=== PATIENT | female | born 1955 | race Caucasian/White ===

== ENCOUNTER 2016-10-30 14:33 | Inpatient (IN) | payer OTHER ==
[2016-10-30] VITALS (8 sets, daily range): BP systolic 132–170; BP diastolic 84–94; PULSE 84–102; RESP 20–30; TEMP 98.9–99.1; O2SAT 88–99
[~2016-10-30] VITALS: Ht 162.6 cm; Wt 65.5 kg
[~2016-10-30 14:33] MED LIST: ALBU8I INH; LEVA750T PO; METH5SOL3 PO
[2016-10-30] MEDS ORDERED: methylPREDNISolone SOD SUCC 125 MG/2 ML VIAL IVP ONE (15:00)
[2016-10-30] MEDS ORDERED: SODIUM CHLORIDE 0.9% FLUSH 5 ML FLUSH IVF PRN (15:00)
[2016-10-30] MEDS: RESP: ALBUTEROL 2.5 MG/IPRATROPIUM 0.5 MG NEB (SCH) INH ×3 (15:05→15:27)
--- NOTE | 2016-10-30 15:05 | PD ---
HPI Chief Complaint: Respiratory Distress Time Seen by Provider: 14:54 Travel History International Travel<30 days: No Contact w/Intl Traveler<30days: No Traveled to known affect area: No History of Present Illness HPI The patient was seen and examined in the presence of the nurse. This patient has history of COPD and still smokes. She complains of shortness of breath and wheezing and cough. She does have a chronic daily cough. Supposed to be and nebulizers but her machine was broken. She arrives hypoxic with room air saturation of 88%. She is not on home O2. No chest pain. Symptoms severity is moderate. No alleviating factors. Duration 3 days PFSH Past Medical History Autoimmune Disease: No Cancer: Yes (CERVICAL) Cardiovascular Problems: Yes (htn) COPD: Yes Cerebrovascular Accident: Yes (seizures) Diminished Hearing: No Genitourinary: No (trouble urinating last few days) Hypertension: Yes Immune Disorder: No Musculoskeletal: No Neurologic: No Psychiatric: No Respiratory: Yes (copd) Immunizations Current: Yes Seizures: Yes (in past drug related) Tetanus Vaccination: Unknown Influenza Vaccination: No PNEUMOCCOCAL Vaccine (Year): 2 ?: Not Menopausal: Yes : 3 Para: 2 Miscarriage: 1 Dilation and Curettage (D&C): Yes Past Surgical History Eye Surgery: Yes (CATARAC AND RETINAL SURGERY IN THE LEFT EYE) Gynecologic Surgery: Yes (CERVICAL CONE SURGERY FOR CANCER) Family History Family Myocardial Infarction: Yes (SISTER MASSIVE [place]) Social History Alcohol Use: No Tobacco Use: Yes (11/03) Substance Use: Yes (past) Allergies-Medications (Allergen,Severity, Reaction): Coded Allergies: Sulfa (Verified Allergy, Severe, HIVES, 10/30/16) Toradol (Verified Allergy, Mild, HIVES, 10/30/16) Reported Meds & Prescriptions Reported Meds & Active Scripts Active Reported Methadose (Methadone HCl) 40 Mg Tab 160 Mg PO DAILY Ventolin Hfa 18 GM Inh (Albuterol Sulfate) 90 Mcg/Act Aer 1 Puff INH Q4H PRN Review of Systems General / Constitutional: No: Fever Eyes: No: Visual changes HENT: No: Headaches Cardiovascular: No: Chest Pain or Discomfort Respiratory: Positive: Cough, Shortness of Breath, Wheezing Gastrointestinal: No: Abdominal Pain Genitourinary: No: Dysuria Musculoskeletal: No: Pain Skin: No Rash Neurologic: No: Weakness Psychiatric: No: Depression Endocrine: No: Polydipsia Hematologic/Lymphatic: No: Easy Bruising Physical Exam Narrative GENERAL: Well-nourished, well-developed patient who is short of breath . SKIN: Warm and dry. HEAD: Atraumatic. Normocephalic. EYES: Left cornea is clouded over. She has chronic vision loss in that eye . No scleral icterus. No injection or drainage. Right pupils round and reactive ENT: No nasal bleeding or discharge. Mucous membranes pink and moist. NECK: Trachea midline. No JVD. CARDIOVASCULAR: Regular rate and rhythm. No murmur appreciated. RESPIRATORY: Slight accessory muscle use. Diffuse expiratory wheezing noted . Breath sounds equal bilaterally. GASTROINTESTINAL: Abdomen soft, non-tender, nondistended. Hepatic and splenic margins not palpable. MUSCULOSKELETAL: No obvious deformities. No clubbing. No cyanosis. No edema. NEUROLOGICAL: Awake and alert. No obvious cranial nerve deficits. Motor grossly within normal limits. Normal speech. PSYCHIATRIC: Appropriate mood and affect; insight and judgment normal. Data Data Last Documented VS Vital Signs Date Time Temp Pulse Resp B/P Pulse Ox O2 Delivery O2 Flow Rate FiO2 10/30/16 15:25 99 Nasal Cannula 2 10/30/16 15:23 98.9 92 24 170/89 Orders Complete Blood Count With Diff (10/30/16 14:59) Basic Metabolic Panel (Bmp) (10/30/16 14:59) Iv Access Insert/Monitor (10/30/16 14:59) Ecg Monitoring (10/30/16 14:59) Oximetry (10/30/16 14:59) Oxygen Administration (10/30/16 14:59) Chest, Single Ap (10/30/16 14:59) Sodium Chloride 0.9% Flush (Ns Flush) (10/30/16 15:00) Methylprednisolone So Succ Inj (Solumedr (10/30/16 15:00) Albuterol-Ipratropium Neb (Duoneb Neb) (10/30/16 15:00) Prothrombin Time / Inr (Pt) (10/30/16 15:44) Act Partial Throm Time (Ptt) (10/30/16 15:44) Admit Order (Ed Use Only) (10/30/16 15:45) Labs Laboratory Tests Test 10/30/16 14:00 White Blood Count 11.9 TH/MM3 Red Blood Count 4.89 MIL/MM3 Hemoglobin 14.0 GM/DL Hematocrit 43.0 % Mean Corpuscular Volume 87.9 FL Mean Corpuscular Hemoglobin 28.6 PG Mean Corpuscular Hemoglobin 32.5 % Concent Red Cell Distribution Width 12.7 % Platelet Count 524 TH/MM3 Mean Platelet Volume 7.1 FL Neutrophils (%) (Auto) 84.4 % Lymphocytes (%) (Auto) 7.7 % Monocytes (%) (Auto) 6.6 % Eosinophils (%) (Auto) 0.8 % Basophils (%) (Auto) 0.5 % Neutrophils # (Auto) 10.0 TH/MM3 Lymphocytes # (Auto) 0.9 TH/MM3 Monocytes # (Auto) 0.8 TH/MM3 Eosinophils # (Auto) 0.1 TH/MM3 Basophils # (Auto) 0.1 TH/MM3 CBC Comment DIFF FINAL Differential Comment Sodium Level 133 MEQ/L Potassium Level 3.8 MEQ/L Chloride Level 91 MEQ/L Carbon Dioxide Level 33.9 MEQ/L Anion Gap 8 MEQ/L Blood Urea Nitrogen 6 MG/DL Creatinine 0.73 MG/DL Estimat Glomerular Filtration 81 ML/MIN Rate Random Glucose 132 MG/DL Calcium Level 9.8 MG/DL MDM Medical Decision Making Medical Screen Exam Complete: Yes Emergency Medical Condition: Yes Medical Record Reviewed: Yes Differential Diagnosis Differential diagnosis includes COPD, asthma, pneumonia, bronchitis, CHF Narrative Course I have reviewed the patient's electronic medical record. Was admitted a year ago for pneumonia IV placed I gave her IV steroids and 3 nebulizer treatments CBC is normal Metabolic profile is normal I reviewed her chest x-ray which shows a little moderate sized right sided pleural effusion, about one third of her lung volume. She is hypoxic on room air and still wheezing and will require admission I reviewed with hospitalist. I reviewed last year's chest x-ray and this pleural effusion is new Diagnosis Primary Impression: COPD (chronic obstructive pulmonary disease) Qualified Code: J44.1 - Chronic obstructive pulmonary disease with acute exacerbation Additional Impressions: Hypoxia Pleural effusion on right Admitting Information Admitting Physician Requests: Admit Juilo Guerrier MD Oct 30, 2016 15:05
[2016-10-30 15:17] LABS: BASOPHIL # 0.1 TH/MM3 (0-0.2); BASOPHIL % 0.5 % (0.0-2.0); EOSINOPHIL # 0.1 TH/MM3 (0-0.4); EOSINOPHIL % 0.8 % (0.0-4.0); LYMPH % 7.7 % (9.0-44.0); LYMPHOCYTE # 0.9 TH/MM3 (1.0-4.8); MEAN CELL VOLUME 87.9 FL (80.0-100.0); MEAN CORPUSCULAR HEMOGLOBIN 28.6 PG (27.0-34.0); MEAN CORPUSCULAR HGB CONC 32.5 % (32.0-36.0); MONO % 6.6 % (0.0-8.0); NEUT % 84.4 % (16.0-70.0); PLATELET COUNT 524 TH/MM3 (150-450); RED BLOOD COUNT 4.89 MIL/MM3 (4.00-5.30); RED CELL DISTRIBUTION WIDTH 12.7 % (11.6-17.2); WHITE BLOOD COUNT 11.9 TH/MM3 (4.0-11.0)
[2016-10-30 15:34] LABS: HEMO FLAGS DIFF FINAL
--- NOTE | 2016-10-30 15:36 | RADHPO ---
EXAM DATE/TIME: 10/30/2016 15:02 [facility] COMPARISON: CHEST SINGLE AP, September 05, 2015, 23:49. INDICATIONS : Cough and congestion. Shortness of breath. MEDICAL HISTORY : Chronic obstructive pulmonary disease. SURGICAL HISTORY : None. ENCOUNTER: Initial ACUITY: 1 week PAIN SCORE: 0/10 LOCATION: Bilateral chest FINDINGS: Moderate pleural effusion seen in the right lung base. There is right volume loss and right infrahila r fullness. No infiltrates are seen. No pneumothorax. CONCLUSION: Moderate size right pleural effusion, nonspecific but potentially a right infrahilar mass. CT of the chest with contrast recommended. Omar Venegas MD on October 30, 2016 at 15:32 Board Certified Radiologist. This report was verified electronically.
[2016-10-30 15:37] LABS: POTASSIUM 3.8 MEQ/L (3.5-5.1)
[2016-10-30 15:40] LABS: BICARBONATE 33.9 MEQ/L (21.0-32.0)
[2016-10-30] MEDS ORDERED: METH40TA2 PO (15:46)
[2016-10-30] MEDS ORDERED: VENTAER INH (15:46)
[2016-10-30] MEDS ORDERED: MAGNESIUM HYDROXIDE SUSP 30 ML CUP PO PRN (16:00)
[2016-10-30] MEDS ORDERED: ONDANSETRON HCL 4 MG/2 ML VIAL IVP PRN (16:00)
[2016-10-30] MEDS: RESP: ALBUTEROL 2.5 MG/IPRATROPIUM 0.5 MG NEB (SCH) NEB ×2 (16:00→19:53)
[2016-10-30] MEDS ORDERED: RESP: ALBUTEROL 2.5 MG/3 ML NEB (PRN) NEB (16:00)
[2016-10-30] MEDS ORDERED: ACETAMINOPHEN 325 MG TAB PO PRN (16:00)
[2016-10-30] MEDS ORDERED: SODIUM CHLORIDE 0.9% FLUSH 5 ML FLUSH FLUSH PRN (16:00)
[2016-10-30] MEDS ORDERED: NALOXONE HCL 0.4 MG/ML AMP IV PRN (16:00)
[2016-10-30 16:06] LABS: APTT (PATIENT) 25.7 SEC (24.3-30.1); PROTHROMBIN TIME - PATIENT 10.7 SEC (9.8-11.6)
--- NOTE | 2016-10-30 16:51 | RADHPO ---
EXAM DATE/TIME: 10/30/2016 16:20 This report includes an Addendum and supersedes previous reports for this exam. [facility] COMPARISON: CHEST SINGLE AP, October 30, 2016, 15:02. INDICATIONS : Shortness of breath for three days. RADIATION DOSE: 7.46 CTDIvol (mGy) MEDICAL HISTORY : Chronic obstructive pulmonary disease. Hypertension. SURGICAL HISTORY : None. ENCOUNTER: Initial ACUITY: 3 days PAIN SCALE: 2/10 LOCATION: Bilateral chest TECHNIQUE: Volumetric scanning of the chest was performed. Using automated exposure control and adjustment of t he mA and/or kV according to patient size, radiation dose was kept as low as reasonably achievable to obtain optimal diagnostic quality images. FINDINGS: There is a large right hilar mass, primarily extending infrahilar, and with associated essentially co mplete collapse of the right lower lobe. The mass is estimated at approximately 4.3 x 7.1 x 8.2 cm. T here is a 2.8 cm subcarinal lymph node, a 2.7 cm right suprahilar lymph node and a 1.7 cm pretracheal lymph node. No left hilar lymphadenopathy demonstrated. A moderate right pleural effusion is present with loculation laterally at the base. Clear left lung. There is moderate upper lobe predominant emphysema. Several low density lesions are seen of the left hepatic lobe measuring up to 2 cm in size and a re most typical of cysts. No adrenal mass demonstrated. No lytic or sclerotic lesion seen of the visu alized osseous structures. CONCLUSION: 1. Large right hilar/infrahilar mass compatible with a central primary bronchogenic carcinoma. 2. Mediastinal and right hilar metastatic adenopathy. 3. Hepatic cysts. No metastatic disease demonstrated in the visualized upper abdomen or of the visual ized osseous structures. Omar Venegas MD on October 30, 2016 at 16:42 Board Certified Radiologist. This report was verified electronically. ADDENDUM: A right chest ultrasound was done a couple hours after the CT showing densely consolidated right lung base without perceptible pleural fluid. The noncontrast CT clearly shows heterogeneous attenuation o f the right base, and in conjunction with the ultrasound must represent different age or degree of pa renchymal consolidation or a combination of atelectasis and pneumonia. Omar Venegas MD on October 30, 2016 at 20:12 Board Certified Radiologist. This report was verified electronically.
[2016-10-30] MEDS ORDERED: AZITHROMYCIN INJ 500 MG in SODIUM CHLOR 0.9% 250 ML INJ 250 ML IV SCH (18:00)
[2016-10-30] MEDS: HEPARIN SODIUM - SQ 10,000 UNITS/ML VIAL SQ SCH (18:00)
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
--- NOTE | 2016-10-30 20:13 | RADHPO ---
EXAM DATE/TIME: 10/30/2016 19:55 [facility] COMPARISON: No previous studies available for comparison. INDICATIONS : Effusion. MEDICAL HISTORY : Hypertension. CVA. Seizures. COPD. Dyspnea. Cervical cancer. Hepatitis C. SURGICAL HISTORY : Retinal surgery. Cervical cone surgery. ENCOUNTER: Initial ACUITY: 1 day PAIN SCORE: 0/10 LOCATION: Right chest. MEASUREMENTS: SKIN TO PARIETAL PLEURA: Inadequate fluid SKIN TO MAX SAFE DEPTH: Inadequate fluid ESTIMATED FLUID VOLUME: FLUID COMPOSITION: Inadequate fluid FINDINGS: No fluid is demonstrated, just completely consolidated right lung base. CONCLUSION: Consolidated right lung base without pleural fluid. Omar Venegas MD on October 30, 2016 at 20:10 Board Certified Radiologist. This report was verified electronically.
[2016-10-30] MEDS: methylPREDNISolone SOD SUCC 40 MG/1 ML VIAL IV PUSH SCH (20:51)
[2016-10-30] MEDS: BUDESONIDE-FORMOTEROL 160/4.5 MCG INHALER INH SCH (20:51)
[2016-10-30] MEDS: SODIUM CHLORIDE 0.9% FLUSH 5 ML FLUSH FLUSH SCH (20:51)
--- NOTE | 2016-10-30 23:20 | MB ---
cc: Chaim RAE M.D. DATE OF CONSULTATION 10/30/16 REASON FOR CONSULTATION Respiratory distress and lung mass HISTORY OF PRESENT ILLNESS This is a 61-year-old white female who has had a history of chronic cough, wheezing, chest congestion and COPD who was admitted with increasing dyspnea and hypoxemia. The patient has been bringing up little whitish-yellow mucus. She came to the emergency room due to shortness of breath and was noted to be hypoxic. A chest CT was done and the CT chest demonstrated a mass in the right lung in the right infrahilar area as well as mediastinal and right hilar adenopathy. Hepatic cysts were noted. A pleural effusion was noted. The patient has been losing weight. Denied hemoptysis. She has no fevers or chills. No nausea or vomiting, but had some chest tightness. PAST MEDICAL HISTORY 1. Chronic bronchitis 2. History of cervical cancer. 3. She has had trauma to the left eye and had retinal and cataract surgery, but is blind in the left eye. 4. Also had cone surgery for cancer of the cervix 5. D & C. HABITS The patient smoked one-pack per day for 30 years and has been unable to quit. Alcohol use minimal up until 5 years ago. ALLERGIES SULFA TORADOL FAMILY HISTORY Significant for heart disease in her sister. MEDICATIONS 1. Ventolin 2 puffs q.i.d. p.r.n. 2. Methadone daily. REVIEW OF SYSTEMS The patient has had trouble with her vision due to opacity on the left eye. She has chest tightness, wheezing, shortness of breath, cough, epigastric distress and loss of appetite. No urinary symptoms. No leg or calf muscle pains. She has some joint pains of her extremities. PHYSICAL EXAMINATION GENERAL: This is a middle-aged averagely built white female who is anxious, pale and mildly dyspneic at rest. VITAL SIGNS: Blood pressure 170/80, pulse is 95, respirations 24 tem,p8 98.5 HEENT: Head normocephalic. Pupils are reactive and equal. Tongue is dry. Throat is injected. Nasal mucosa edematous. NECK: Supple. No bruits, no thyroid enlargement or lymphadenopathy. CHEST: Equal movements with distant breath sounds and crackles heard over the right lower chest with wheezes bilaterally. Breath sounds somewhat diminished over the right base. HEART: Heart sounds are irregular S1-S2. No murmur. No S3 gallop. ABDOMEN: Soft, benign. No masses, no organomegaly or tenderness. Bowel sounds are active. EXTREMITIES: No edema. No calf tenderness. NEUROLOGIC: Reflexes are brisk with no gross motor deficits. Cranial nerves grossly intact. RECTAL: Exam is deferred. SKIN: No lesions observed. IMPRESSION 1. Right hilar mass with mediastinal adenopathy, rule out malignancy 2. COPD with chronic bronchitis and acute exacerbation 3. Probable right basilar pneumonia 4. Hypertension. PLAN The patient has been placed on IV antibiotic therapy including Zithromax 500 mg which we will continue and she could possibly be placed on Rocephin 2 grams IV daily. Nebulized DuoNeb solution added q.i.d. Solu-Medrol 40 mg IV every 6 hours. Coagulation profile to be done. Ultrasound examination of the chest to evaluate the pleural effusion. The patient will need a bronchoscopy scheduled as well over the next 2-3 days. I will discuss the case with you, Dr. Steinberg. Thank you for this consultation. MD ELLEN Jewell/ /8:53 PM /11:01 PM
[2016-10-31] VITALS (10 sets, daily range): BP systolic 128–169; BP diastolic 67–93; PULSE 79–86; RESP 17–20; TEMP 96.2–98.1; O2SAT 88–96
[2016-10-31] MEDS: methylPREDNISolone SOD SUCC 40 MG/1 ML VIAL IV PUSH SCH ×4 (03:21→22:01)
[2016-10-31] MEDS: HEPARIN SODIUM - SQ 10,000 UNITS/ML VIAL SQ SCH ×2 (05:52→16:38)
[2016-10-31 06:52] LABS: AUTOMATED NEUTROPHIL # 15.5 TH/MM3 (1.8-7.7); BASOPHIL # 0.2 TH/MM3 (0-0.2); BASOPHIL % 1.2 % (0.0-2.0); EOSINOPHIL % 0.1 % (0.0-4.0); HEMO FLAGS DIFF FINAL; LYMPH % 3.4 % (9.0-44.0); LYMPHOCYTE # 0.6 TH/MM3 (1.0-4.8); MEAN CELL VOLUME 88.4 FL (80.0-100.0); MEAN CORPUSCULAR HEMOGLOBIN 29.8 PG (27.0-34.0); MEAN CORPUSCULAR HGB CONC 33.7 % (32.0-36.0); MONO % 1.1 % (0.0-8.0); NEUT % 94.2 % (16.0-70.0); PLATELET COUNT 439 TH/MM3 (150-450); RED BLOOD COUNT 4.41 MIL/MM3 (4.00-5.30); RED CELL DISTRIBUTION WIDTH 12.6 % (11.6-17.2); WHITE BLOOD COUNT 16.5 TH/MM3 (4.0-11.0)
[2016-10-31 06:57] LABS: CHLORIDE 93 MEQ/L (98-107); POTASSIUM 4.1 MEQ/L (3.5-5.1); SODIUM (NA) 133 MEQ/L (136-145)
[2016-10-31 07:01] LABS: ANION GAP 7 MEQ/L (5-15); BICARBONATE 32.6 MEQ/L (21.0-32.0); BLOOD UREA NITROGEN 9 MG/DL (7-18)
[2016-10-31 07:04] LABS: ALT (GPT) 15 U/L (10-53); AST (GOT) 12 U/L (15-37); GLOMERULAR FILTRATION RATE 86 ML/MIN (>89)
[2016-10-31 07:06] LABS: TOTAL BILIRUBIN ADULT 0.4 MG/DL (0.2-1.0)
[2016-10-31 07:07] LABS: ALKALINE PHOSPHATASE 63 U/L (45-117)
[2016-10-31] MEDS: RESP: ALBUTEROL 2.5 MG/IPRATROPIUM 0.5 MG NEB (SCH) NEB ×4 (07:48→22:02)
[2016-10-31] MEDS: cefTRIAXone INJ 2,000 MG in SODIUM CHLORIDE 0.9% INJ 100 ML IV SCH (08:00)
[2016-10-31] MEDS: DOXYCYCLINE HYCLATE 100 MG TAB PO SCH ×2 (08:05→22:02)
[2016-10-31] MEDS: SODIUM CHLORIDE 0.9% FLUSH 5 ML FLUSH FLUSH SCH (08:17)
[2016-10-31] MEDS: METHADONE HCL 10 MG TAB PO SCH (08:17)
[2016-10-31] MEDS: BUDESONIDE-FORMOTEROL 160/4.5 MCG INHALER INH SCH ×2 (08:18→21:00)
--- NOTE | 2016-10-31 08:19 | HHI.PR ---
Subjective Remarks Follow-up for lung mass, pleural effusion, COPD exacerbation. Patient admits to cough and shortness of breath but feels better this morning. Waiting for methadone. Objective Vitals Vital Signs Date Time Temp Pulse Resp B/P Pulse Ox O2 Delivery O2 Flow Rate FiO2 10/31/16 08:04 96.2 85 20 169/93 94 10/31/16 07:50 96 Nasal Cannula 2.00 10/31/16 04:00 98.1 82 20 139/90 93 10/31/16 00:00 97.8 86 20 136/67 93 10/30/16 20:00 99.1 91 20 157/90 93 10/30/16 20:00 87 10/30/16 19:23 95 Nasal Cannula 2.00 10/30/16 18:07 95 22 140/84 92 Nasal Cannula 10/30/16 16:39 84 22 132/84 94 Nasal Cannula 2 10/30/16 15:25 99 Nasal Cannula 2 10/30/16 15:25 99 Nasal Cannula 2 10/30/16 15:23 98.9 92 24 170/89 99 Nasal Cannula 2 10/30/16 15:06 93 Nasal Cannula 2.00 10/30/16 14:46 97 30 95 Nasal Cannula 2 10/30/16 14:42 98.9 102 30 150/94 88 I/O 10/30/16 10/30/16 10/30/16 10/31/16 10/31/16 10/31/16 07:00 15:00 23:00 07:00 15:00 23:00 Intake Total 615 ml 365 ml Balance 615 ml 365 ml Intake Oral 365 ml 365 ml IV Total 250 ml # Voids 1 2 Result Diagram: 10/31/16 0632 10/31/16 0632 Imaging Last Impressions Chest X-Ray 10/30/16 1459 Signed Impressions: Service Date/Time: Sunday, October 30, 2016 15:02 - CONCLUSION: Moderate size right pleural effusion, nonspecific but potentially a right infrahilar mass. CT of the chest with contrast recommended. Omar Venegas MD Chest Ultrasound 10/30/16 0000 Signed Impressions: Service Date/Time: Sunday, October 30, 2016 19:55 - CONCLUSION: Consolidated right lung base without pleural fluid. Omar Venegas MD Chest CT 10/30/16 0000 Signed Impressions: Service Date/Time: Sunday, October 30, 2016 16:20 - CONCLUSION: 1. Large right hilar/infrahilar mass compatible with a central primary bronchogenic carcinoma. 2. Mediastinal and right hilar metastatic adenopathy. 3. Hepatic cysts. No metastatic disease demonstrated in the visualized upper abdomen or of the visualized osseous structures. Omar Venegas MD ADDENDUM: A right chest ultrasound was done a couple hours after the CT showing densely consolidated right lung base without perceptible pleural fluid. The noncontrast CT clearly shows heterogeneous attenuation of the right base, and in conjunction with the ultrasound must represent different age or degree of parenchymal consolidation or a combination of atelectasis and pneumonia. Omar Venegas MD Objective Remarks GENERAL: Well-nourished, well-developed patient in apparent distress currently using nebulizer treatment. SKIN: Warm and dry. Abrasion dorsal right forearm. HEAD: Atraumatic. Normocephalic. EYES: Left eye clouded with injection, blind. CARDIOVASCULAR: Regular rate and rhythm. RESPIRATORY: Expiratory wheezing, but much improved. NEUROLOGICAL: Awake and alert. Motor grossly within normal limits. Normal speech. PSYCHIATRIC: Appropriate mood and affect; insight and judgment normal. Urinary Catheter: No Vascular Central Line Catheter: No A/P Problem List: (1) SIRS (systemic inflammatory response syndrome) ICD Code: R65.10 Status: Acute (2) Lung mass ICD Code: R91.8 Status: Acute (3) Pleural effusion ICD Code: J90 Status: Acute (4) Acute respiratory failure ICD Code: J96.00 Status: Acute (5) COPD exacerbation ICD Code: J44.1 Status: Acute (6) Methadone maintenance therapy patient ICD Code: F11.20 Status: Acute (7) Leukocytosis ICD Code: D72.829 Status: Acute Assessment and Plan 61-year-old female with: SIRS: Tachycardic 102. RR 30. No source of infection. Lung mass/pleural effusion: Chest x-ray personally reviewed with obvious right sided pleural effusion. CT of the chest was performed which reveals 4.3 x 7.1 x 8.2 cm mass, likely bronchogenic carcinoma with mediastinal and right hilar metastatic adenopathy; moderate pleural effusion with loculation laterally at the base. Patient is a smoker. Mild hyponatremia which could be associated with this. -Oncology consultation pending -Pulmonology consultation. Dr. Calderón evaluated the patient yesterday and recommends transfer to main hospital for bronchoscopy within the next 2-3 days. COPD exacerbation/acute respiratory failure: O2 88% on RA. Mild leukocytosis. Imaging as above. Majority of symptoms are likely due to the lung mass and pleural, patient has wheezing on exam. ED note indicates patient's nebulizer machine was not working. -She received 1 dose of IV azithromycin, but due to methadone use will switch to doxycycline [address] Calderón also recommends Rocephin 2 g IV daily. -Duonebs q 4 with albuterol q 2 prn -Solumedrol 40 mg q 6 h -Oxygen via NC Leukocytosis: WBC count increased from yesterday likely due to steroid use. -Monitor CBC Hypertension: BP 169/93 this morning. -PRN clonidine ordered SBP>180 Methadone: Confirmed methadone dose with clinic. -Continue 160 mg daily DVT prevention: SCDs, heparin q12h. Transfer order placed. Written by Leny Barkley PA-C acting as scribe for Dr. Steinberg on 10/31/15 at 0755 . The documentation accurately reflects the work and decisions performed face-to- face by me on 10/31/15 at 0755. Problem Qualifiers (1) Acute respiratory failure: Qualified Code: J96.01 - Acute respiratory failure with hypoxia Leny Barkley Oct 31, 2016 08:19
[2016-10-31] MEDS ORDERED: cloNIDine HCL 0.1 MG TAB PO PRN (08:30)
--- NOTE | 2016-10-31 17:12 | HHI.PR ---
Subjective Remarks Feels weak. Has some cough. No sleep . Pain along right lower chest. Objective Vital Signs Date Time Temp Pulse Resp B/P Pulse Ox O2 Delivery O2 Flow Rate FiO2 10/31/16 16:59 96.5 84 18 133/77 92 10/31/16 15:22 88 21 10/31/16 14:00 96.9 83 20 133/84 92 10/31/16 09:39 18 10/31/16 08:04 96.2 85 20 169/93 94 10/31/16 07:50 96 Nasal Cannula 2.00 10/31/16 04:00 98.1 82 20 139/90 93 10/31/16 00:00 97.8 86 20 136/67 93 10/30/16 20:00 99.1 91 20 157/90 93 10/30/16 20:00 87 10/30/16 19:23 95 Nasal Cannula 2.00 10/30/16 18:07 95 22 140/84 92 Nasal Cannula I/O 10/30/16 10/30/16 10/30/16 10/31/16 10/31/16 10/31/16 06:59 14:59 22:59 06:59 14:59 22:59 Intake Total 615 ml 365 ml 700 ml Balance 615 ml 365 ml 700 ml Intake Oral 365 ml 365 ml 700 ml IV Total 250 ml # Voids 1 2 Result Diagram: 10/31/16 0632 10/31/16 0632 Objective Remarks GENERAL: This is a middle-aged averagely built white female who is anxious, pale and mildly dyspneic at rest. HEENT: Head normocephalic. Pupils are reactive and equal. Tongue is coated. Throat is injected. Nasal mucosa edematous. NECK: Supple. No bruits, no thyroid enlargement or lymphadenopathy. CHEST: Equal movements with distant breath sounds and crackles heard over the right lower chest with wheezes bilaterally. Breath sounds somewhat diminished over the right base. HEART: Heart sounds are irregular S1-S2. No murmur. No S3 gallop. ABDOMEN: Soft, benign. No masses, no organomegaly or tenderness. Bowel sounds are active. EXTREMITIES: No edema. No calf tenderness. NEUROLOGIC: Reflexes are brisk with no gross motor deficits. Cranial nerves grossly intact. RECTAL: Exam is deferred. SKIN: No lesions observed. Assessment and Plan Assessment and Plan IMPRESSION 1. Right hilar mass with mediastinal adenopathy, rule out malignancy 2. COPD with chronic bronchitis and acute exacerbation 3. Probable right basilar pneumonia 4. Hypertension. Plan : 1. Cont antibiotics. 2. Hold heparin. 3. Bronchoscopy in am. 4. Add Ambien 5mg HS prn. 5. Cont Solumedrol 40 mg IV q8h. 6. PT PTT in am Chaim Calderón MD Oct 31, 2016 17:11
[2016-10-31] MEDS ORDERED: RESP: LIDOCAINE HCL 4% PF 5 ML NEB NEB SCH (18:00)
[2016-10-31 18:56] LABS: APTT (PATIENT) 24.4 SEC (24.3-30.1); PROTHROMBIN TIME - PATIENT 10.9 SEC (9.8-11.6)
[2016-10-31] MEDS: LACTATED RINGER'S 1000 ML IV SCH (23:45)
[2016-11-01] VITALS (9 sets, daily range): BP systolic 121–156; BP diastolic 57–86; PULSE 71–84; RESP 16–18; TEMP 96.9–97.7; O2SAT 92–95
[2016-11-01] MEDS: ZOLPIDEM TARTRATE 5 MG TAB PO PRN ×2 (00:43→21:35)
[2016-11-01] MEDS: methylPREDNISolone SOD SUCC 40 MG/1 ML VIAL IV PUSH SCH ×4 (00:46→21:35)
[2016-11-01] MEDS: BUDESONIDE-FORMOTEROL 160/4.5 MCG INHALER INH SCH ×2 (08:01→21:00)
[2016-11-01] MEDS: METHADONE HCL 10 MG TAB PO SCH (08:04)
[2016-11-01] MEDS: DOXYCYCLINE HYCLATE 100 MG TAB PO SCH ×2 (08:05→21:35)
[2016-11-01] MEDS: cefTRIAXone INJ 2,000 MG in SODIUM CHLORIDE 0.9% INJ 100 ML IV SCH (08:09)
--- NOTE | 2016-11-01 08:32 | HHI.PR ---
Subjective Remarks With sob, says has wheezing on/off. No chest pain. + cough, scant sputum. No n/ v/d/c. Objective Vitals Vital Signs Date Time Temp Pulse Resp B/P Pulse Ox O2 Delivery O2 Flow Rate FiO2 11/01/16 08:00 97.6 80 18 155/57 92 11/01/16 04:00 97.0 72 17 136/76 93 11/01/16 00:00 97.0 71 17 121/78 95 10/31/16 22:03 95 Nasal Cannula 2.00 10/31/16 20:26 81 10/31/16 20:00 97.6 79 17 128/74 94 10/31/16 16:59 96.5 84 18 133/77 92 10/31/16 15:22 88 21 10/31/16 14:00 96.9 83 20 133/84 92 10/31/16 09:39 18 I/O 10/31/16 10/31/16 10/31/16 11/01/16 11/01/16 11/01/16 07:00 15:00 23:00 07:00 15:00 23:00 Intake Total 365 ml 700 ml 240 ml 0 ml Output Total 300 ml 400 ml Balance 365 ml 700 ml -60 ml -400 ml Intake Oral 365 ml 700 ml 240 ml 0 ml Output Urine Total 300 ml 400 ml # Voids 2 Result Diagram: 10/31/16 0632 10/31/16 0632 Imaging Last Impressions Chest X-Ray 10/30/16 1459 Signed Impressions: Service Date/Time: Sunday, October 30, 2016 15:02 - CONCLUSION: Moderate size right pleural effusion, nonspecific but potentially a right infrahilar mass. CT of the chest with contrast recommended. Omar Venegas MD Chest Ultrasound 10/30/16 0000 Signed Impressions: Service Date/Time: Sunday, October 30, 2016 19:55 - CONCLUSION: Consolidated right lung base without pleural fluid. Omar Venegas MD Chest CT 10/30/16 0000 Signed Impressions: Service Date/Time: Sunday, October 30, 2016 16:20 - CONCLUSION: 1. Large right hilar/infrahilar mass compatible with a central primary bronchogenic carcinoma. 2. Mediastinal and right hilar metastatic adenopathy. 3. Hepatic cysts. No metastatic disease demonstrated in the visualized upper abdomen or of the visualized osseous structures. Omar Venegas MD ADDENDUM: A right chest ultrasound was done a couple hours after the CT showing densely consolidated right lung base without perceptible pleural fluid. The noncontrast CT clearly shows heterogeneous attenuation of the right base, and in conjunction with the ultrasound must represent different age or degree of parenchymal consolidation or a combination of atelectasis and pneumonia. Omar Venegas MD Objective Remarks GENERAL: Well-nourished, well-developed patient in apparent distress currently using nebulizer treatment. SKIN: Warm and dry. Abrasion dorsal right forearm. HEAD: Atraumatic. Normocephalic. EYES: Left eye clouded with injection, blind. CARDIOVASCULAR: Regular rate and rhythm. RESPIRATORY: Expiratory wheezing, but much improved. NEUROLOGICAL: Awake and alert. Motor grossly within normal limits. Normal speech. PSYCHIATRIC: Appropriate mood and affect; insight and judgment normal. A/P Problem List: (1) SIRS (systemic inflammatory response syndrome) ICD Code: R65.10 Status: Acute (2) Lung mass ICD Code: R91.8 Status: Acute (3) Pleural effusion ICD Code: J90 Status: Acute (4) Acute respiratory failure ICD Code: J96.00 Status: Acute (5) COPD exacerbation ICD Code: J44.1 Status: Acute (6) Methadone maintenance therapy patient ICD Code: F11.20 Status: Acute (7) Leukocytosis ICD Code: D72.829 Status: Acute Assessment and Plan 61-year-old female with: SIRS: Tachycardic 102. RR 30. No source of infection. Lung mass/pleural effusion: Chest x-ray personally reviewed with obvious right sided pleural effusion. CT of the chest was performed which reveals 4.3 x 7.1 x 8.2 cm mass, likely bronchogenic carcinoma with mediastinal and right hilar metastatic adenopathy; moderate pleural effusion with loculation laterally at the base. Patient is a smoker. Mild hyponatremia which could be associated with this. -Oncology consultation Dr Braxton following appreciate recommendations. Plan for bone scan, CT abd/pelvis, MRI brain -Pulmonology consultation. Dr. Calderón evaluated the patient and recommends transfer to [facility] for bronchoscopy. Rescheduled bronch for tomorrow 11/02/16 COPD exacerbation/acute respiratory failure: O2 88% on RA. Mild leukocytosis. Imaging as above. Majority of symptoms are likely due to the lung mass and pleural, patient has wheezing on exam. ED note indicates patient's nebulizer machine was not working. -She received 1 dose of IV azithromycin, but due to methadone use will switch to doxycycline [address] Calderón also recommends Rocephin 2 g IV daily. -Duonebs q 4 with albuterol q 2 prn -Solumedrol 40 mg q 6 h -Oxygen via NC Leukocytosis: WBC count increased from yesterday likely due to steroid use. -Monitor CBC Hypertension: -PRN clonidine ordered SBP>180 Methadone: Confirmed methadone dose with clinic. -Continue 160 mg daily DVT prevention: SCDs, heparin q12h. discussed with the patient, nurse, family, Dr Braxton hem/onc Problem Qualifiers (1) Acute respiratory failure: Qualified Code: J96.01 - Acute respiratory failure with hypoxia Kiara Woodward MD Nov 01, 2016 08:32
[2016-11-01] MEDS: RESP: ALBUTEROL 2.5 MG/IPRATROPIUM 0.5 MG NEB (SCH) NEB ×4 (08:36→19:56)
[2016-11-01] MEDS ORDERED: DIATRIZOATE MEGLUM/DIATRIZOATE SOD 9 ML CUP PO ONE (11:45)
--- NOTE | 2016-11-01 12:58 | MB ---
cc: KRYSTLE ALEXANDRE M.D., MIRELA MD DATE OF CONSULTATION: 11/01/2016 REASON FOR CONSULTATION Oncology is consulted to render an opinion regarding patient with newly discovered lung mass. HISTORY OF PRESENT ILLNESS The patient is a 61-year-old female with a history of tobacco use and chronic obstructive pulmonary disease, who first noted increased shortness of breath over the last six months. However, over the last two weeks she has progressively worsened shortness of breath. She also had a cough that was mostly nonproductive. Two days before presentation she noticed some blood in the sputum which lasted only one day. She started developing pain in the right chest about two weeks ago and she had nausea. She also has been having a headache. She had decreased appetite but denies losing any weight. She has subjective fever and sweats. She denies any abdominal pain. Denies any melena or hematochezia. Denies dysuria or hematuria. Her chronic back pain is about the same. She is in the methadone program. PAST MEDICAL HISTORY 1. Chronic obstructive pulmonary disease. 2. Hypertension. 3. Cervical precancerous lesion. 4. Seizure twice, the last was 5 years ago. 5. 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 PAST SURGICAL HISTORY 1. Cervical cone surgery. 2. D&C. 3. Cataract surgery. 4. Retinal surgery. FAMILY HISTORY Brother of lung cancer. SOCIAL HISTORY Smoked a pack a day for at least 30 years now, about a quarter pack a day. Denies alcohol use. She has a history of addiction to pain pills as well as IV drug use. She has been in the methadone program for about 2 years. ALLERGIES 1. SULFA. 2. TORADOL. MEDICATIONS Current medications: 1. Doxycycline. 2. Methadone. 3. Ceftriaxone. 4. Solu-Medrol. 5. Symbicort. REVIEW OF SYSTEMS CONSTITUTIONAL: Denies any fever but has subjective warmth and sweats. Denies any weight loss. EYES: Denies any blurry vision in the right eye. She has left eye blindness. ENT: No mouth sores or voice changes. CARDIOVASCULAR: Has right-sided chest pain. RESPIRATORY: As above. GI: Had nausea and vomiting. Denies abdominal pain, melena or hematochezia. : No dysuria or hematuria. MUSCULOSKELETAL: Chronic back pain. HEMATOLOGIC: Negative. ENDOCRINE: Negative. DERMATOLOGIC: Negative. PSYCHIATRIC: Negative. NEUROLOGIC: Has had a headache. PHYSICAL EXAMINATION VITAL SIGNS: Temperature 97.6, blood pressure 155/57, O2 saturation 92% on two liters nasal cannula. GENERAL: She is alert and oriented x3, in no acute distress. HEENT: Atraumatic, normocephalic. Left eye blindness and cloudy sclera noted. Oropharynx has dry mucosa, no lesion. NECK: No thyromegaly. No palpable mass. LYMPHATIC: No palpable cervical, clavicular or axillary lymph nodes. CARDIOVASCULAR: Regular. S1, S2 normal. LUNGS: Decreased breath sounds right lung base. No wheezing or rhonchi. ABDOMEN: Soft, nontender. Could not palpate liver or spleen. EXTREMITIES: No cyanosis. No significant edema. No calf tenderness. BACK: No paravertebral tenderness. SKIN: No rash or petechiae. NEUROLOGIC: Nonfocal. LABORATORY DATA Laboratory data reviewed. ASSESSMENT 1. Lung mass with mediastinal adenopathy most consistent with primary bronchogenic carcinoma. She has a history of tobacco use and chronic obstructive pulmonary disease. She has worsening shortness of breath and a nonproductive cough over the last six months. She start developing right chest pain two weeks ago. She also had one episode of hemoptysis but that has not recurred. CT showed a large right hilar mass that extended to the infrahilar causing collapse of the right lower lobe. The tumor measured 4.3 x 7.0 x 8.2 cm. There was also a 2.8 cm subcarinal and 2.7 cm right suprahilar and 1.7 cm pretracheal adenopathy. She has been seen by Dr. Calderón and scheduled for bronchoscopy and biopsy today. I had an extensive discussion with the patient and her regarding CT finding of probable diagnosis and treatment options. At this point I recommend complete staging with CT of the abdomen and pelvis, bone scan and brain MRI. If her disease is localized to the thorax we could treat her with concurrent radiation and chemotherapy; however final treatment recommendations will depend on the tissue diagnosis. 2. Chronic obstructive pulmonary disease. 3. Tobacco dependence. 4. History of drug abuse, currently in the methadone program 5. History of cervical precancerous lesion in the 1970s. 6. Seizure twice, the last one five years ago. 7. Left eye blindness. RECOMMENDATIONS 1. I had an extensive discussion with the patient and her . Their questions were answered. 2. Arrange for CT abdomen and pelvis, bone scan, brain MRI. 3. Await bronchoscopy and biopsy. 4. Further treatment recommendations will depend on tissue diagnosis. Thank you Dr. Woodward for asking me to see this patient. MD PHILIP Montes De Oca/MENG /10:26 AM /12:27 PM ALBERTINA
--- NOTE | 2016-11-01 13:06 | HHI.PR ---
Subjective Remarks Feels weak. Has some cough.Wheezing still. Better sleep . Pain along right lower chest. Bronchoscopy rescheduled for 11 am tomorrow. Objective Vital Signs Date Time Temp Pulse Resp B/P Pulse Ox O2 Delivery O2 Flow Rate FiO2 11/01/16 12:00 96.9 73 17 156/86 93 11/01/16 09:04 18 11/01/16 08:38 92 Nasal Cannula 2.00 11/01/16 08:00 97.6 80 18 155/57 92 11/01/16 04:00 97.0 72 17 136/76 93 11/01/16 00:00 97.0 71 17 121/78 95 10/31/16 22:03 95 Nasal Cannula 2.00 10/31/16 20:26 81 10/31/16 20:00 97.6 79 17 128/74 94 10/31/16 16:59 96.5 84 18 133/77 92 10/31/16 15:22 88 21 10/31/16 14:00 96.9 83 20 133/84 92 I/O 10/31/16 10/31/16 10/31/16 11/01/16 11/01/16 11/01/16 07:00 15:00 23:00 07:00 15:00 23:00 Intake Total 365 ml 700 ml 240 ml 0 ml Output Total 300 ml 400 ml Balance 365 ml 700 ml -60 ml -400 ml Intake Oral 365 ml 700 ml 240 ml 0 ml Output Urine Total 300 ml 400 ml # Voids 2 Result Diagram: 10/31/16 0632 10/31/16 0632 Objective Remarks GENERAL: This is a middle-aged averagely built white female who is mildly dyspneic at rest. HEENT: Head normocephalic. Pupils are reactive and equal. Tongue is coated. Throat is clear. Nasal mucosa clear. NECK: Supple. No bruits, no thyroid enlargement or lymphadenopathy. CHEST: Equal movements with distant breath sounds and crackles heard over the right lower chest with occ wheezes bilaterally. Breath sounds somewhat diminished over the right base. HEART: Heart sounds are irregular S1-S2. No murmur. No S3 gallop. ABDOMEN: Soft, benign. No masses, no organomegaly or tenderness. Bowel sounds are active. EXTREMITIES: No edema. No calf tenderness. NEUROLOGIC: Reflexes are brisk with no gross motor deficits. Cranial nerves grossly intact. RECTAL: Exam is deferred. SKIN: No lesions observed. Assessment and Plan Assessment and Plan IMPRESSION 1. Right hilar mass with mediastinal adenopathy, rule out malignancy 2. COPD with chronic bronchitis and acute exacerbation 3. Probable right basilar pneumonia 4. Hypertension. Plan : 1. Cont antibiotics. 2. Hold heparin. 3. For Bronchoscopy in am. 4. Add Ambien 5mg HS prn. 5. Cont Solumedrol 40 mg IV q12h. 6. PT PTT in am Chaim Calderón MD Nov 01, 2016 13:06
--- NOTE | 2016-11-01 14:56 | RADRPT ---
EXAM DATE/TIME: 11/01/2016 12:02 [facility] COMPARISON: CT THORAX W/O CONTRAST, October 30, 2016, 16:20. PRIOR BONE SCANS: No correlative bone scan available for comparison. INDICATIONS : Right lung mass. Shortness of breath for one week. Neoplasm. DOSE: 31 mCi Tc99m MDP IV MEDICAL HISTORY : Chronic obstructive pulmonary disease. Hypertension. Cervical cancer. SURGICAL HISTORY : None. ENCOUNTER: Initial ACUITY: 1 week PAIN SCALE: 1/10 LOCATION: Left chest TECHNIQUE: Three hours post intravenous administration of radiotracer, whole body bone scan imaging was performe d. FINDINGS: Blood pool images demonstrate a homogeneous pattern of uptake in the soft tissues. No hyperemic area s are identified. Planar bone scan demonstrates a normal pattern of uptake. No focal areas of incre ased or decreased uptake are seen. There is mild uptake in the cervical, thoracic spine and the lumba r spine felt to be degenerative. CONCLUSION: No definite scintigraphic evidence of osseous metastatic disease. Anup Bowman MD on November 01, 2016 at 14:53 Board Certified Radiologist. This report was verified electronically.
[2016-11-01] MEDS ORDERED: GADODIAMIDE PF 287 MG/ML 5 ML VIAL (for RAD MRI) IV PUSH ONE (15:54)
--- NOTE | 2016-11-01 16:25 | RADRPT ---
EXAM DATE/TIME: 11/01/2016 15:15 [facility] COMPARISON: CT BRAIN W/O CONTRAST, May 27, 2014, 7:29. INDICATIONS : Metastatic disease. CONTRAST: 12 cc Omniscan (gadodiamide) IV MEDICAL HISTORY : Hypertension. Chronic obstructive pulmonary disease. SURGICAL HISTORY : Eye surgery. ENCOUNTER: Subsequent ACUITY: 3 day PAIN SCORE: 2/10 LOCATION: Head TECHNIQUE: Multiplanar, multisequence MRI of the brain was performed both prior to and following the administrat ion of paramagnetic contrast. FINDINGS: CEREBRUM: The ventricles are normal for age. No evidence of midline shift, mass lesion, hemorrhage or acute in farction. No extraaxial fluid collections are seen. The pituitary gland and suprasellar cistern are normal in configuration. WHITE MATTER: Mild, chronic flair signal abnormality seen in the periventricular white matter of both frontal and p arietal lobes. POSTERIOR FOSSA: The cerebellum and brainstem are intact. The 4th ventricle is midline. The cerebellopontine angle is unremarkable. The cerebellar tonsils are normal in position. DIFFUSION IMAGING: No focal areas of restricted diffusion are seen. No evidence of acute infarction. EXTRACRANIAL: Chronically deformed left globe. POST-CONTRAST: No abnormal areas of parenchymal or dural enhancement. No evidence of blood-brain barrier breakdown. CONCLUSION: 1. No metastatic disease or other acute intracranial abnormality. 2. Mild, chronic white matter changes. 3. Chronically deformed left globe. Omar Venegas MD on November 01, 2016 at 16:22 Board Certified Radiologist. This report was verified electronically.
[2016-11-01] MEDS: ACETAMINOPHEN 325 MG TAB PO PRN ×2 (17:08→21:38)
[2016-11-01] MEDS: LACTATED RINGER'S 1000 ML IV SCH (23:45)
[2016-11-02] VITALS (8 sets, daily range): BP systolic 138–177; BP diastolic 70–97; PULSE 71–88; RESP 16–19; TEMP 96.8–98.7; O2SAT 92–97
[2016-11-02] MEDS: methylPREDNISolone SOD SUCC 40 MG/1 ML VIAL IV PUSH SCH ×3 (06:00→20:05)
[2016-11-02] MEDS ORDERED: DIATRIZOATE MEGLUM/DIATRIZOATE SOD 9 ML CUP PO ONE (06:00)
[2016-11-02 06:08] LABS: AUTOMATED NEUTROPHIL # 13.1 TH/MM3 (1.8-7.7); HEMATOCRIT 38.6 % (35.0-46.0); HEMO FLAGS DIFF FINAL; LYMPH % 4.2 % (9.0-44.0); LYMPHOCYTE # 0.6 TH/MM3 (1.0-4.8); MEAN CELL VOLUME 87.3 FL (80.0-100.0); MEAN CORPUSCULAR HEMOGLOBIN 29.3 PG (27.0-34.0); MEAN CORPUSCULAR HGB CONC 33.6 % (32.0-36.0); MONO % 4.3 % (0.0-8.0); NEUT % 91.5 % (16.0-70.0); PLATELET COUNT 413 TH/MM3 (150-450); RED BLOOD COUNT 4.42 MIL/MM3 (4.00-5.30); RED CELL DISTRIBUTION WIDTH 13.3 % (11.6-17.2); WHITE BLOOD COUNT 14.3 TH/MM3 (4.0-11.0)
[2016-11-02 06:11] LABS: BICARBONATE 34.9 MEQ/L (21.0-32.0); POTASSIUM 4.3 MEQ/L (3.5-5.1)
[2016-11-02] MEDS: DOXYCYCLINE HYCLATE 100 MG TAB PO SCH ×2 (08:08→20:05)
[2016-11-02] MEDS: cefTRIAXone INJ 2,000 MG in SODIUM CHLORIDE 0.9% INJ 100 ML IV SCH (08:10)
[2016-11-02] MEDS: METHADONE HCL 10 MG TAB PO SCH (08:10)
[2016-11-02] MEDS: BUDESONIDE-FORMOTEROL 160/4.5 MCG INHALER INH SCH ×2 (08:14→20:06)
[2016-11-02] MEDS: RESP: ALBUTEROL 2.5 MG/IPRATROPIUM 0.5 MG NEB (SCH) NEB ×4 (08:30→20:04)
[2016-11-02] MEDS ORDERED: ONDANSETRON HCL 4 MG/2 ML VIAL IV PUSH ONE (09:10)
[2016-11-02] MEDS ORDERED: PROPOFOL 200 MG/20 ML AMP IV ONE (09:10)
--- NOTE | 2016-11-02 09:39 | PD.ONC.PN ---
Subjective Subjective Remarks Afebrile overnight. Patient resting comfortably. She denies any hemoptysis overnight. She is waiting to go down for bronchoscopy. She still has pain in her right side, worse with deep breath. Objective Data Date Time Temp Pulse Resp B/P Pulse Ox O2 Delivery O2 Flow Rate FiO2 11/02/16 08:32 92 Nasal Cannula 2.00 11/02/16 08:00 98.7 74 19 177/96 95 11/02/16 04:00 97.0 71 16 142/87 92 11/02/16 00:24 16 11/02/16 00:00 97.1 78 16 163/97 92 11/01/16 21:38 76 11/01/16 20:00 97.7 76 18 148/79 92 11/01/16 19:57 95 Nasal Cannula 2.00 11/01/16 16:00 97.0 83 16 141/81 94 11/01/16 12:00 96.9 73 17 156/86 93 11/02/16 11/02/16 11/02/16 07:00 15:00 23:00 Intake Total 0 ml Output Total 650 ml Balance -650 ml 0 ml Result Diagram: 11/02/16 0521 11/02/16 0521 Laboratory Results Laboratory Tests Test 11/02/16 05:21 White Blood Count 14.3 TH/MM3 Red Blood Count 4.42 MIL/MM3 Hemoglobin 13.0 GM/DL Hematocrit 38.6 % Mean Corpuscular Volume 87.3 FL Mean Corpuscular Hemoglobin 29.3 PG Mean Corpuscular Hemoglobin 33.6 % Concent Red Cell Distribution Width 13.3 % Platelet Count 413 TH/MM3 Mean Platelet Volume 7.2 FL Neutrophils (%) (Auto) 91.5 % Lymphocytes (%) (Auto) 4.2 % Monocytes (%) (Auto) 4.3 % Eosinophils (%) (Auto) 0.0 % Basophils (%) (Auto) 0.0 % Neutrophils # (Auto) 13.1 TH/MM3 Lymphocytes # (Auto) 0.6 TH/MM3 Monocytes # (Auto) 0.6 TH/MM3 Eosinophils # (Auto) 0.0 TH/MM3 Basophils # (Auto) 0.0 TH/MM3 CBC Comment DIFF FINAL Differential Comment Sodium Level 130 MEQ/L Potassium Level 4.3 MEQ/L Chloride Level 91 MEQ/L Carbon Dioxide Level 34.9 MEQ/L Anion Gap 4 MEQ/L Blood Urea Nitrogen 13 MG/DL Creatinine 0.75 MG/DL Estimat Glomerular Filtration 78 ML/MIN Rate Random Glucose 111 MG/DL Calcium Level 9.2 MG/DL Administered Medications Medications (Trade) Dose Ordered Sig/Félix Route PRN Reason Start Time Stop Time Status Last Admin Dose Admin Doxycycline Hyclate (Vibratab) 100 mg BID PO 10/31/16 09:00 11/02/16 08:08 Budesonide/ Formoterol Fumarate (Symbicort 160-4.5 Inh) 2 puff Q12HR INH 10/30/16 21:00 11/02/16 08:14 Methadone HCl 160 mg 160 mg DAILY PO 10/31/16 09:00 11/02/16 08:10 Ceftriaxone Sodium/Sodium Chloride (Rocephin Inj/NS Inj) 100 ml @ 200 mls/hr Q24H IV 10/31/16 08:00 11/02/16 08:10 Zolpidem Tartrate (Ambien) 5 mg HS PRN PO SLEEP 10/31/16 18:00 11/01/16 21:35 Methylprednisolone Sodium Succinate (SoluMEDROL INJ) 40 mg Q8HR IV PUSH 11/01/16 14:00 11/02/16 06:00 Acetaminophen (Tylenol) 650 mg Q4H PRN PO HEADACHE /FEVER 11/01/16 16:45 11/01/16 21:38 Objective Remarks GENERAL: Middle aged female, sitting up in bed in nad. SKIN: Warm and dry. HEAD: Normocephalic. EYES: left eye with cloudy cornea. NECK: Supple, trachea midline. CARDIOVASCULAR: Regular rate and rhythm RESPIRATORY: diminished at bases. scattered rhonchi. on 2L O2 via NC GASTROINTESTINAL: Abdomen soft, non-tender, nondistended. EXTREMITIES: No cyanosis NEUROLOGICAL: No obvious focal deficit. Awake, alert, and oriented x3. Assessment/Plan Problem List: (1) Lung mass Status: Acute Plan: 11/02/16: having bronch/biopsy at 11AM today History/Workup --Lung mass with mediastinal adenopathy most consistent with primary bronchogenic carcinoma. --history of tobacco use and chronic obstructive pulmonary disease. --has had worsening shortness of breath and a nonproductive cough over the last six months. --developing right chest pain two weeks ago. --CT chest: large right hilar mass that extended to the infrahilar region causing collapse of the right lower lobe.4.3 x 7.0 x 8.2 cm. also a 2.8 cm subcarinal and 2.7 cm right suprahilar and 1.7 cm pretracheal adenopathy. --CT ab/pelvis: pending --bone scan: no mets --brain MRI: no mets --If her disease is localized to the thorax we could treat her with concurrent radiation and chemotherapy; however final treatment recommendations will depend on the tissue diagnosis Assessment 61y/o female with lung mass h/o Chronic obstructive pulmonary disease. Hypertension. Cervical precancerous lesion. Seizure twice, the last was 5 years ago. 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 Plan 1. await bronchoscopy/biopsy 2. fs faxed to [facility]. Attending Statement The exam, history, and the medical decision-making described in the above note were completed with the assistance of the mid-level provider. I reviewed and agree with the findings presented. I attest that I had a [id number] encounter with the patient on the same day, and personally performed and documented my assessment and findings in the medical record. Right chest pain about the same , no hemoptysis. Await bronchoscopy today. reviews Brain MRI and bone scan with patient, no metastatic disease noted on the scan. Kyra Pearce Nov 02, 2016 09:39 Harshil Braxton MD Nov 02, 2016 11:48
[2016-11-02] MEDS ORDERED: MIDAZOLAM HCL 2 MG/2 ML VIAL ONE ×2 (12:03→13:48)
[2016-11-02] MEDS ORDERED: methylPREDNISolone SOD SUCC 125 MG/2 ML VIAL ONE (12:03)
[2016-11-02] MEDS ORDERED: LIDOCAINE HCL 4% PF 5 ML AMP ONE (12:25)
[2016-11-02] MEDS ORDERED: SUGAMMADEX SODIUM 200 MG/2 ML VIAL IV PUSH ONE ×2 (12:30)
[2016-11-02] MEDS ORDERED: RESP: ALBUTEROL 2.5 MG/3 ML NEB (PRN) NEB (13:00)
[2016-11-02] MEDS ORDERED: *RESP: ALBUTEROL 2.5 MG/3 ML NEB (PRN) PERIprocedural Use ONLY NEB ONE (13:14)
[2016-11-02] MEDS ORDERED: DO NOT ADM ANY ANTICOAGULANT DRUGS XX PRN (13:15)
--- NOTE | 2016-11-02 13:18 | MR ---
cc: GUIDO CALDERÓN DATE: 11/02/2016 PROCEDURE Fiberoptic bronchoscopy with brushings and washings. PREOPERATIVE DIAGNOSIS Right lung mass. POSTOPERATIVE DIAGNOSIS Right lung mass. ANESTHESIA General with intubation. SURGEON Dr. Ashly Calderón . PROCEDURE AND FINDINGS The patient was intubated under general anesthesia, following which the Olympus IT-180 bronchoscope was used to visualize the bronchi. The scope was advanced via the endotracheal tube into the trachea. The trachea and lora appeared normal. The scope was then advanced into the left main stem and left upper lobe segmental bronchi. These bronchi demonstrated no endobronchial lesions. Next, the left lower lobe segmental bronchi were visualized which demonstrated no endobronchial lesions. Following this the scope was advanced into the right main stem bronchus. The right upper lobe bronchus was patent and had no masses. Next, the right middle and lower lobe segmental bronchi were visualized. The right lower lobe bronchus was occluded by a friable cauliflower-like mass which was bleeding. Brushing was done but there was significant bleeding with clot and the field was not visible clearly. Saline washings were done until clear. The procedure was then terminated. The patient will be observed in the recovery room and a chest x-ray was ordered. MD ELLEN Jewell/MENG /12:53 PM /1:13 PM
[2016-11-02] MEDS ORDERED: *LABETALOL HCL 100 MG/20 ML VIAL PERIprocedural Use ONLY ONE (13:51)
--- NOTE | 2016-11-02 14:55 | RADRPT ---
EXAM DATE/TIME: 11/02/2016 13:04 [facility] COMPARISON: No previous studies available for comparison. INDICATIONS : Post-op bronchoscopy. MEDICAL HISTORY : Hypertension. Hepatitis C. Chronic obstructive pulmonary disease. SURGICAL HISTORY : Left eye surgery. ENCOUNTER: Subsequent ACUITY: 4 - 6 days PAIN SCORE: 7/10 LOCATION: chest FINDINGS: Postoperative bronchoscopy reveals a right hilar mass with atelectasis of the right lung base. No pne umothorax identified. Left lung is clear. CONCLUSION: 1. No pneumothorax, status post bronchoscopy. Ramiro Neves MD on November 02, 2016 at 14:52 Board Certified Radiologist. This report was verified electronically.
--- NOTE | 2016-11-02 16:39 | HHI.PR ---
Subjective Remarks Says she wants to take methadone at 6 AM as usually takes ot at that time. SOB at baseline. + wheezing on/off. Went for biopsy. No pain , no cough .Denies fevers or chills. Objective Vitals Vital Signs Date Time Temp Pulse Resp B/P Pulse Ox O2 Delivery O2 Flow Rate FiO2 11/02/16 16:00 94 Nasal Cannula 2.00 11/02/16 16:00 97.9 87 18 165/90 95 11/02/16 14:00 97.8 75 17 160/93 97 Nasal Cannula 4 11/02/16 13:45 74 18 151/100 99 Nasal Cannula 4 11/02/16 13:30 87 20 157/104 99 Nasal Cannula 4 11/02/16 13:15 87 20 157/95 99 Simple Mask 6 11/02/16 13:10 97.8 92 18 174/107 97 Simple Mask 6 11/02/16 11:23 96.9 79 19 138/87 95 11/02/16 08:32 92 Nasal Cannula 2.00 11/02/16 08:00 98.7 74 19 177/96 95 11/02/16 04:00 97.0 71 16 142/87 92 11/02/16 00:24 16 11/02/16 00:00 97.1 78 16 163/97 92 11/01/16 21:38 76 11/01/16 20:00 97.7 76 18 148/79 92 11/01/16 19:57 95 Nasal Cannula 2.00 I/O 11/01/16 11/01/16 11/01/16 11/02/16 11/02/16 11/02/16 06:59 14:59 22:59 06:59 14:59 22:59 Intake Total 0 ml 480 ml 0 ml 480 ml 1000 ml 240 ml Output Total 400 ml 850 ml 1050 ml 40 ml Balance -400 ml -370 ml 0 ml -570 ml 960 ml 240 ml Intake Oral 0 ml 480 ml 480 ml 0 ml 240 ml IV Total 0 ml 200 ml Other 800 ml Output Urine Total 400 ml 850 ml 1050 ml 0 ml Estimated Blood Loss 40 ml # Bowel Movements 0 0 0 Result Diagram: 11/02/16 0521 11/02/16 0521 Imaging Last Impressions Chest X-Ray 11/02/16 0000 Signed Impressions: Service Date/Time: Wednesday, November 02, 2016 13:04 - CONCLUSION: 1. No pneumothorax, status post bronchoscopy. Ramiro Neves MD Brain MRI 11/01/16 0000 Signed Impressions: Service Date/Time: Tuesday, November 01, 2016 15:15 - CONCLUSION: 1. No metastatic disease or other acute intracranial abnormality. 2. Mild, chronic white matter changes. 3. Chronically deformed left globe. Omar Venegas MD Bone Scan Nuclear Medicine 11/01/16 0000 Signed Impressions: Service Date/Time: Tuesday, November 01, 2016 12:02 - CONCLUSION: No definite scintigraphic evidence of osseous metastatic disease. Anup Bowman MD Chest Ultrasound 10/30/16 0000 Signed Impressions: Service Date/Time: Sunday, October 30, 2016 19:55 - CONCLUSION: Consolidated right lung base without pleural fluid. Omar Venegas MD Chest CT 10/30/16 0000 Signed Impressions: Service Date/Time: Sunday, October 30, 2016 16:20 - CONCLUSION: 1. Large right hilar/infrahilar mass compatible with a central primary bronchogenic carcinoma. 2. Mediastinal and right hilar metastatic adenopathy. 3. Hepatic cysts. No metastatic disease demonstrated in the visualized upper abdomen or of the visualized osseous structures. Omar Venegas MD ADDENDUM: A right chest ultrasound was done a couple hours after the CT showing densely consolidated right lung base without perceptible pleural fluid. The noncontrast CT clearly shows heterogeneous attenuation of the right base, and in conjunction with the ultrasound must represent different age or degree of parenchymal consolidation or a combination of atelectasis and pneumonia. Omar Venegas MD Objective Remarks GENERAL: Well-nourished, well-developed patient in apparent distress currently using nebulizer treatment. SKIN: Warm and dry. Abrasion dorsal right forearm. HEAD: Atraumatic. Normocephalic. EYES: Left eye clouded with injection, blind. CARDIOVASCULAR: Regular rate and rhythm. RESPIRATORY: Expiratory wheezing, but much improved. NEUROLOGICAL: Awake and alert. Motor grossly within normal limits. Normal speech. PSYCHIATRIC: Appropriate mood and affect; insight and judgment normal. A/P Problem List: (1) SIRS (systemic inflammatory response syndrome) ICD Code: R65.10 Status: Acute (2) Lung mass ICD Code: R91.8 Status: Acute (3) Pleural effusion ICD Code: J90 Status: Acute (4) Acute respiratory failure ICD Code: J96.00 Status: Acute (5) COPD exacerbation ICD Code: J44.1 Status: Acute (6) Methadone maintenance therapy patient ICD Code: F11.20 Status: Acute (7) Leukocytosis ICD Code: D72.829 Status: Acute Assessment and Plan 61-year-old female with: SIRS: Tachycardic 102. RR 30. No source of infection. Lung mass/pleural effusion: Chest x-ray personally reviewed with obvious right sided pleural effusion. CT of the chest was performed which reveals 4.3 x 7.1 x 8.2 cm mass, likely bronchogenic carcinoma with mediastinal and right hilar metastatic adenopathy; moderate pleural effusion with loculation laterally at the base. Patient is a smoker. Mild hyponatremia which could be associated with this. -Oncology consultation Dr Braxton following appreciate recommendations. Plan for bone scan, CT abd/pelvis, MRI brain -Pulmonology consultation. Dr. Calderón evaluated the patient and recommends transfer to [facility] for bronchoscopy. S/P bronchoscopy 11/02/16. Results pending. Brain MRI and bone scan, no metastatic disease noted on the scan. CT abd/pelv pending COPD exacerbation/acute respiratory failure: O2 88% on RA. Mild leukocytosis. Imaging as above. Majority of symptoms are likely due to the lung mass and pleural, patient has wheezing on exam. ED note indicates patient's nebulizer machine was not working. -She received 1 dose of IV azithromycin, but due to methadone use will switch to doxycycline [address] Calderón also recommends Rocephin 2 g IV daily. -Duonebs q 4 with albuterol q 2 prn -Solumedrol 40 mg q 6 h -Oxygen via NC Leukocytosis: WBC count increased from yesterday likely due to steroid use. -Monitor CBC Hypertension: -PRN clonidine ordered SBP>180 Methadone: Confirmed methadone dose with clinic. -Continue 160 mg daily DVT prevention: SCDs, heparin q12h. discussed with the patient, nurse. Problem Qualifiers (1) Acute respiratory failure: Qualified Code: J96.01 - Acute respiratory failure with hypoxia Kiara Woodward MD Nov 02, 2016 16:39
[2016-11-02] MEDS: ACETAMINOPHEN 325 MG TAB PO PRN ×2 (17:52→21:27)
[2016-11-02] MEDS ORDERED: IOHEXOL 350 MG/ML 10 ML VIAL (for RAD DIAG) IV ONE (20:42)
--- NOTE | 2016-11-02 22:46 | RADRPT ---
EXAM DATE/TIME: 11/02/2016 20:35 [facility] COMPARISON: CT THORAX W/O CONTRAST, October 30, 2016, 16:20. INDICATIONS : Abnormal CT Chest; evaluate for metastatic disease. IV CONTRAST: 80 cc Omnipaque 350 (iohexol) IV ORAL CONTRAST: Prescribed oral contrast ingested. RADIATION DOSE: 7.89 CTDIvol (mGy) MEDICAL HISTORY : Cardiovascular disease. Hypertension. Hepatitis C.Cervical cancer. SURGICAL HISTORY : None. ENCOUNTER: Initial ACUITY: 4 - 6 days PAIN SCALE: 0/10 LOCATION: Abdomen/pelvis TECHNIQUE: Volumetric scanning of the abdomen and pelvis was performed. Using automated exposure control and ad justment of the mA and/or kV according to patient size, radiation dose was kept as low as reasonably achievable to obtain optimal diagnostic quality images. FINDINGS: LIVER: Multiple small cysts. No suspicious mass. No biliary ductal dilatation. SPLEEN: Normal size without lesion. PANCREAS: Within normal limits. KIDNEYS: There is a slightly greater than 4.5 cm solid mass involving the lower pole of the right kidney. Left kidney is normal in appearance. ADRENAL GLANDS: Within normal limits. VASCULAR: Arterial structures are unremarkable. The suprarenal IVC shows heterogeneous density, likely contrast mixing. The right renal vein appears patent BOWEL/MESENTERY: The stomach, small bowel, and colon demonstrate no acute abnormality. There is no free intraperitone al air or fluid. ABDOMINAL WALL: Tiny fat-containing supraumbilical midline abdominal wall hernia containing fat. RETROPERITONEUM: There is no lymphadenopathy. BLADDER: No wall thickening or mass. REPRODUCTIVE: Within normal limits. INGUINAL: There is no lymphadenopathy or hernia. MUSCULOSKELETAL: Degenerative changes in the spine and low lumbar spondylolisthesis. CONCLUSION: Slightly greater than 4.5 cm solid mass involving the lower pole of the right kidney. No other eviden ce of neoplastic disease in the abdomen or pelvis. Omar Arnold MD on November 02, 2016 at 22:38 Board Certified Radiologist. This report was verified electronically.
--- NOTE | 2016-11-02 23:01 | RADRPT ---
EXAM DATE/TIME: 11/02/2016 22:31 [facility] COMPARISON: CT ABDOMEN & PELVIS W CONTRAST, November 02, 2016, 20:35. CHEST SINGLE AP, November 02, 2016, 13:04. US CHEST RIGHT, October 30, 2016, 19:55. INDICATIONS : Effusion. MEDICAL HISTORY : Hypertension. Seizures. CVA. COPD. Dyspnea. Cervical cancer. Hepatits C. SURGICAL HISTORY : Retinal sugery. Cervical cone surgery. ENCOUNTER: Subsequent ACUITY: 1 day PAIN SCORE: 0/10 LOCATION: Right chest. MEASUREMENTS: SKIN TO PARIETAL PLEURA: Inadequate fluid SKIN TO MAX SAFE DEPTH: Inadequate fluid ESTIMATED FLUID VOLUME: FLUID COMPOSITION: Inadequate fluid FINDINGS: No marking was performed. <Dense consolidation of the right lower lobe. No pleural fluid is observed .> CONCLUSION: Dense consolidation of the right lower lobe. No pleural fluid seen. Mirza Donnelly Jr., MD on November 02, 2016 at 22:58 Board Certified Radiologist. This report was verified electronically.
[2016-11-02] MEDS: ZOLPIDEM TARTRATE 5 MG TAB PO PRN (23:40)
[2016-11-02] MEDS: LACTATED RINGER'S 1000 ML IV SCH (23:45)
[2016-11-03] VITALS (9 sets, daily range): BP systolic 138–187; BP diastolic 81–104; PULSE 73–90; RESP 17–21; TEMP 96.9–97.9; O2SAT 93–95
[2016-11-03] MEDS: methylPREDNISolone SOD SUCC 40 MG/1 ML VIAL IV PUSH SCH ×3 (05:48→20:56)
[2016-11-03] MEDS: METHADONE HCL 10 MG TAB PO SCH (05:55)
[2016-11-03] MEDS: DOXYCYCLINE HYCLATE 100 MG TAB PO SCH ×2 (07:59→20:56)
[2016-11-03] MEDS: cefTRIAXone INJ 2,000 MG in SODIUM CHLORIDE 0.9% INJ 100 ML IV SCH (08:00)
[2016-11-03] MEDS: BUDESONIDE-FORMOTEROL 160/4.5 MCG INHALER INH SCH ×2 (08:00→21:04)
[2016-11-03] MEDS ORDERED: ONDANSETRON HCL 4 MG/2 ML VIAL ONE (08:44)
[2016-11-03] MEDS: ONDANSETRON HCL 4 MG/2 ML VIAL IV PUSH PRN ×3 (08:45→20:56)
--- NOTE | 2016-11-03 09:37 | PD.ONC.PN ---
Subjective Subjective Remarks +nausea since last night. No hemoptysis. Mild SOB. Objective Data Date Time Temp Pulse Resp B/P Pulse Ox O2 Delivery O2 Flow Rate FiO2 11/03/16 07:34 97.9 77 18 187/98 95 11/03/16 04:09 97.9 73 18 138/81 93 11/03/16 00:19 97.8 77 21 165/92 93 11/02/16 22:33 18 11/02/16 20:52 96.8 88 16 155/70 97 11/02/16 20:05 88 11/02/16 16:00 94 Nasal Cannula 2.00 11/02/16 16:00 97.9 87 18 165/90 95 11/02/16 14:00 97.8 75 17 160/93 97 Nasal Cannula 4 11/02/16 13:45 74 18 151/100 99 Nasal Cannula 4 11/02/16 13:30 87 20 157/104 99 Nasal Cannula 4 11/02/16 13:15 87 20 157/95 99 Simple Mask 6 11/02/16 13:10 97.8 92 18 174/107 97 Simple Mask 6 11/02/16 11:23 96.9 79 19 138/87 95 11/03/16 11/03/16 11/03/16 07:00 15:00 23:00 Intake Total 480 ml Balance 480 ml Result Diagram: 11/02/16 0521 11/02/16 0521 Culture Results Microbiology Date/Time Procedure Status Source Growth 11/02/16 12:53 Gram Stain Received Bronchial Washings Right Lower Lobe Pending 11/02/16 12:53 Bronchial Culture Received Bronchial Washings Right Lower Lobe Pending 11/02/16 12:53 Acid Fast Stain - Final Resulted Bronchial Washings Right Lower Lobe NO ACID FAST BACILLI SEEN 11/02/16 12:53 Mycobacterial Culture Resulted Bronchial Washings Right Lower Lobe Pending 11/02/16 12:53 Fungal Smear Received Bronchial Washings Right Lower Lobe Pending 11/02/16 12:53 Fungal Culture Received Bronchial Washings Right Lower Lobe Pending Administered Medications Medications (Trade) Dose Ordered Sig/Félix Route PRN Reason Start Time Stop Time Status Last Admin Dose Admin Doxycycline Hyclate (Vibratab) 100 mg BID PO 10/31/16 09:00 11/03/16 07:59 Budesonide/ Formoterol Fumarate 2 puff 2 puff Q12HR INH 10/30/16 21:00 11/03/16 08:00 Ceftriaxone Sodium/Sodium Chloride (Rocephin Inj/NS Inj) 100 ml @ 200 mls/hr Q24H IV 10/31/16 08:00 11/03/16 08:00 Zolpidem Tartrate (Ambien) 5 mg HS PRN PO SLEEP 10/31/16 18:00 11/02/16 23:40 Methylprednisolone Sodium Succinate (SoluMEDROL INJ) 40 mg Q8HR IV PUSH 11/01/16 14:00 11/03/16 05:48 Acetaminophen (Tylenol) 650 mg Q4H PRN PO HEADACHE /FEVER 11/01/16 16:45 11/02/16 21:27 Methadone HCl (Dolophine) 160 mg DAILY@06 PO 11/03/16 06:00 11/03/16 05:55 Ondansetron HCl (Zofran Inj) 4 mg Q6H PRN IV PUSH NAUSEA 11/03/16 08:30 11/03/16 08:45 Objective Remarks GENERAL: Well-nourished, well-developed patient. SKIN: Warm and dry. HEAD: Normocephalic. EYES: No scleral icterus. No injection or drainage. Left eye blindness. NECK: Supple, trachea midline. No JVD or lymphadenopathy. LYMPHATIC: No adenopathy. CARDIOVASCULAR: Regular rate and rhythm without murmurs. RESPIRATORY: Breath sounds equal decreased right base, +wheezing. No accessory muscle use. GASTROINTESTINAL: Abdomen soft, non-tender, nondistended. EXTREMITIES: No cyanosis, or edema. MUSCULOSKELETAL: Adequate muscle tone. NEUROLOGICAL: No obvious focal deficit. Awake, alert, and oriented x3. PSYCHIATRIC: Appropriate mood and affect; insight and judgment normal. Assessment/Plan Problem List: (1) Lung mass Status: Acute Plan: 11/03/16 Bronchoscopy showed a friable bleeding mass in RLL bronchus. It was actively bleeding. Cytology pending. 11/02/16: having bronch/biopsy at 11AM today History/Workup --Lung mass with mediastinal adenopathy most consistent with primary bronchogenic carcinoma. --history of tobacco use and chronic obstructive pulmonary disease. --has had worsening shortness of breath and a nonproductive cough over the last six months. --developing right chest pain two weeks ago. --CT chest: large right hilar mass that extended to the infrahilar region causing collapse of the right lower lobe.4.3 x 7.0 x 8.2 cm. also a 2.8 cm subcarinal and 2.7 cm right suprahilar and 1.7 cm pretracheal adenopathy. --CT ab/pelvis: no mets disease. --bone scan: no mets --brain MRI: no mets --If her disease is localized to the thorax we could treat her with concurrent radiation and chemotherapy; however final treatment recommendations will depend on the tissue diagnosis Assessment 61y/o female with lung mass h/o Chronic obstructive pulmonary disease. Hypertension. Cervical precancerous lesion. Seizure twice, the last was 5 years ago. 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 Plan 1. await cytology 2. Likely will need chemo + XRT. Consult Rad onc 3. Will need port placement for chemotx. 4. Add zofran for nausea Harshil Braxton MD Nov 03, 2016 09:36
[2016-11-03] MEDS: RESP: ALBUTEROL 2.5 MG/IPRATROPIUM 0.5 MG NEB (SCH) NEB ×4 (10:31→20:06)
--- NOTE | 2016-11-03 12:02 | EKG ---
Date Performed: 11/02/2016 Time Performed: 12:04:34 PTAGE: 61 years EKG: Sinus rhythm BORDERLINE LEFT AXIS DEVIATION BORDERLINE ECG PREVIOUS TRACING : 05/27/2014 05.57 DOCTOR: Killian Young Interpretating Date/Time 11/03/2016 12:00:27
[2016-11-03] MEDS ORDERED: ZOLPIDEM TARTRATE 5 MG TAB PO PRN (14:00)
--- NOTE | 2016-11-03 14:10 | HHI.PR ---
Subjective Remarks Follow-up lung mass versus pneumonia. No more hemoptysis. Requesting stronger sleeping pill. Discussed with RN Objective Vitals Vital Signs Date Time Temp Pulse Resp B/P Pulse Ox O2 Delivery O2 Flow Rate FiO2 11/03/16 11:21 96.9 77 20 176/88 95 11/03/16 10:31 93 Nasal Cannula 2.00 11/03/16 07:34 97.9 77 18 187/98 95 11/03/16 04:09 97.9 73 18 138/81 93 11/03/16 00:19 97.8 77 21 165/92 93 11/02/16 22:33 18 11/02/16 20:52 96.8 88 16 155/70 97 11/02/16 20:05 88 11/02/16 16:00 94 Nasal Cannula 2.00 11/02/16 16:00 97.9 87 18 165/90 95 I/O 11/02/16 11/02/16 11/02/16 11/03/16 11/03/16 11/03/16 07:00 15:00 23:00 07:00 15:00 23:00 Intake Total 1164 ml 957 ml 480 ml Output Total 650 ml 40 ml Balance -650 ml 1124 ml 957 ml 480 ml Intake Oral 0 ml 820 ml 480 ml IV Total 364 ml 137 ml 0 ml Other 800 ml Output Urine Total 650 ml 0 ml Estimated Blood Loss 40 ml # Voids 3 2 # Bowel Movements 0 0 Result Diagram: 11/02/16 0521 11/02/16 0521 Imaging Last Impressions Chest X-Ray 11/02/16 0000 Signed Impressions: Service Date/Time: Wednesday, November 02, 2016 13:04 - CONCLUSION: 1. No pneumothorax, status post bronchoscopy. Ramiro Neves MD Chest Ultrasound 11/02/16 0000 Signed Impressions: Service Date/Time: Wednesday, November 02, 2016 22:31 - CONCLUSION: Dense consolidation of the right lower lobe. No pleural fluid seen. Mirza Donnelly Jr., MD Brain MRI 11/01/16 0000 Signed Impressions: Service Date/Time: Tuesday, November 01, 2016 15:15 - CONCLUSION: 1. No metastatic disease or other acute intracranial abnormality. 2. Mild, chronic white matter changes. 3. Chronically deformed left globe. Omar Venegas MD Bone Scan Nuclear Medicine 11/01/16 0000 Signed Impressions: Service Date/Time: Tuesday, November 01, 2016 12:02 - CONCLUSION: No definite scintigraphic evidence of osseous metastatic disease. Anup Bowman MD Abdomen/Pelvis CT 11/01/16 0000 Signed Impressions: Service Date/Time: Wednesday, November 02, 2016 20:35 - CONCLUSION: Slightly greater than 4.5 cm solid mass involving the lower pole of the right kidney. No other evidence of neoplastic disease in the abdomen or pelvis. Omar Arnold MD Chest CT 10/30/16 0000 Signed Impressions: Service Date/Time: Sunday, October 30, 2016 16:20 - CONCLUSION: 1. Large right hilar/infrahilar mass compatible with a central primary bronchogenic carcinoma. 2. Mediastinal and right hilar metastatic adenopathy. 3. Hepatic cysts. No metastatic disease demonstrated in the visualized upper abdomen or of the visualized osseous structures. Omar Venegas MD ADDENDUM: A right chest ultrasound was done a couple hours after the CT showing densely consolidated right lung base without perceptible pleural fluid. The noncontrast CT clearly shows heterogeneous attenuation of the right base, and in conjunction with the ultrasound must represent different age or degree of parenchymal consolidation or a combination of atelectasis and pneumonia. Omar Venegas MD Objective Remarks GENERAL: Well-nourished, well-developed patient in no distress SKIN: Warm and dry. Abrasion dorsal right forearm. HEAD: Atraumatic. Normocephalic. EYES: Opacified left eye CARDIOVASCULAR: Regular rate and rhythm. RESPIRATORY: No wheezes NEUROLOGICAL: Awake and alert. Motor grossly within normal limits. Normal speech. PSYCHIATRIC: Appropriate mood and affect; insight and judgment normal. 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 RR 30. Pneumonia suspected. Continue IV Rocephin and doxycycline Lung mass/pleural effusion: Chest x-ray personally reviewed with obvious right sided pleural effusion. CT of the chest was performed which reveals 4.3 x 7.1 x 8.2 cm mass, likely bronchogenic carcinoma with mediastinal and right hilar metastatic adenopathy; moderate pleural effusion with loculation laterally at the base. Patient is a smoker. Mild hyponatremia which could be associated with this. -Oncology consultation Dr Braxton following appreciate recommendations. Consulted radiation oncology -Pulmonology consultation. Dr. Calderón s/p bronchoscopy 11/02/16. Results pending. Brain MRI and bone scan, no metastatic disease noted on the scan. CT abd/pel with solid mass right kidney COPD exacerbation/acute respiratory failure: O2 88% on RA. Mild leukocytosis. Imaging as above. Majority of symptoms are likely due to the lung mass and pleural, patient has wheezing on exam. ED note indicates patient's nebulizer machine was not working. -She received 1 dose of IV azithromycin, but due to methadone use will switch to doxycycline [address] Calderón also recommends Rocephin 2 g IV daily. -Duonebs q 4 with albuterol q 2 prn -Solumedrol 40 mg q 6 h -Oxygen via NC Leukocytosis: WBC count increased from yesterday likely due to steroid use. -Monitor CBC Hypertension: -PRN clonidine ordered SBP>180 Methadone: Confirmed methadone dose with clinic. -Continue 160 mg daily Insomnia. Increase Ambien DVT prevention: SCDs, out of bed Problem Qualifiers (1) Acute respiratory failure: Qualified Code: J96.01 - Acute respiratory failure with hypoxia Ld Ren MD Nov 03, 2016 14:10
[2016-11-03] MEDS ORDERED: ENALAPRILAT 1.25 MG/ML VIAL IV PRN (14:15)
--- NOTE | 2016-11-03 19:03 | HHI.PR ---
Subjective Remarks Feels weak. Has some cough.Wheezing still. Poor sleep . Pain along right lower chest. Objective Vital Signs Date Time Temp Pulse Resp B/P Pulse Ox O2 Delivery O2 Flow Rate FiO2 11/03/16 16:03 94 Nasal Cannula 2.00 11/03/16 16:00 96.9 90 17 149/90 95 11/03/16 11:21 96.9 77 20 176/88 95 11/03/16 10:31 93 Nasal Cannula 2.00 11/03/16 07:34 97.9 77 18 187/98 95 11/03/16 04:09 97.9 73 18 138/81 93 11/03/16 00:19 97.8 77 21 165/92 93 11/02/16 22:33 18 11/02/16 20:52 96.8 88 16 155/70 97 11/02/16 20:05 88 I/O 11/02/16 11/02/16 11/02/16 11/03/16 11/03/16 11/03/16 07:00 15:00 23:00 07:00 15:00 23:00 Intake Total 1164 ml 957 ml 480 ml 240 ml Output Total 650 ml 40 ml Balance -650 ml 1124 ml 957 ml 480 ml 240 ml Intake Oral 0 ml 820 ml 480 ml 240 ml IV Total 364 ml 137 ml 0 ml Other 800 ml Output Urine Total 650 ml 0 ml Estimated Blood Loss 40 ml # Voids 3 2 # Bowel Movements 0 0 Result Diagram: 11/02/16 0521 11/02/16 0521 Objective Remarks GENERAL: This is a middle-aged averagely built white female who is mildly dyspneic at rest. HEENT: Head normocephalic. Pupils are reactive and equal. Tongue is coated. Throat is clear. Nasal mucosa clear. NECK: Supple. No bruits, no thyroid enlargement or lymphadenopathy. CHEST: Equal movements with distant breath sounds with occ wheezes bilaterally. Breath sounds somewhat diminished over the right base. HEART: Heart sounds are irregular S1-S2. No murmur. No S3 gallop. ABDOMEN: Soft, benign. No masses, no organomegaly or tenderness. Bowel sounds are active. EXTREMITIES: No edema. No calf tenderness. NEUROLOGIC: Reflexes are brisk with no gross motor deficits. Cranial nerves grossly intact. RECTAL: Exam is deferred. SKIN: No lesions observed. Assessment and Plan Assessment and Plan IMPRESSION 1. Right hilar mass with mediastinal adenopathy, rule out malignancy 2. COPD with chronic bronchitis and acute exacerbation 3. Probable right basilar pneumonia 4. Hypertension. Plan : 1. Cont antibiotics. 2. Oncology eval 3. radiation therapy planned 4. Add Ambien 10mg HS prn. 5. Cont Solumedrol 40 mg IV q12h. 6. Nebs qid , [place]. Chaim Calderón MD Nov 03, 2016 19:03
[2016-11-03] MEDS: cloNIDine HCL 0.1 MG TAB PO PRN (20:56)
--- NOTE | 2016-11-03 21:16 | RC ---
cc: JESUS VASQUEZ V. JOHN M.D. CHEW, BOON Y. M.D. DATE OF SERVICE 11/03/16 HISTORY Ms. Ford is a 61-year-old with a recent mass detected on imaging after presenting to the emergency room with productive cough. Discussion with Dr. Calderón. Discussed her situation with him today. Does note the cough mass, fairly bleeding. Cytology pending. We discussed likely this is a primary lung cancer. We discussed likely this is stage III disease. Discussed with Ms. Ford. She denies any prior radiation therapy. She denies lupus, collagen, vascular disease, scleroderma. We discussed she has a right kidney mass. This may require further evaluation by urologist or additional biopsy or further procedure. We discussed unlikely be related to the lung cancer. We discussed standard, therapeutic approach would be combined chemoradiation therapy. We plan approximately 6-7 weeks of radiation with weekly chemotherapy. That will be the standard therapeutic approach (NCCN guidelines). We discussed treatment side effects such as pain with swallowing, sore throat. We discussed CT simulation. Complex blocking will be done. We plan a fusion with the diagnostic CT. Can consider outpatient staging with PET CT as well and patient staging, MRI of the brain negative. Bone scan negative. Abdomen pelvis demonstrates the right kidney mass. She is agreeable to proceed with treatment consideration at this time. We would not start until final pathology obtained or cytology. She expressed good understanding of treatment approach. Will schedule for CT simulation that is a fairly urgent manner. She is inpatient currently. Discussed this case with Dr. Braxton on 11-04-16. Discussed the case with Dr. Calderón 11-03-16. Cytology pending as of am 11-04-16. Jesus Vasquez MD Radiation Oncologist CATALINO/JOANA /7:12 PM /9:04 PM ALBERTINA
[2016-11-03] MEDS: LACTATED RINGER'S 1000 ML IV SCH (23:45)
[2016-11-04] VITALS (9 sets, daily range): BP systolic 142–178; BP diastolic 83–104; PULSE 77–98; RESP 18–20; TEMP 96.9–98.4; O2SAT 93–96
[2016-11-04] MEDS: PROMETHAZINE INJ 25 MG/ML VIAL IM PRN ×3 (02:00→21:07)
[2016-11-04] MEDS: ONDANSETRON HCL 4 MG/2 ML VIAL IV PUSH PRN ×3 (05:44→19:11)
[2016-11-04] MEDS: methylPREDNISolone SOD SUCC 40 MG/1 ML VIAL IV PUSH SCH ×2 (05:45→15:32)
[2016-11-04] MEDS: METHADONE HCL 10 MG TAB PO SCH (05:45)
[2016-11-04 06:16] LABS: AUTOMATED NEUTROPHIL # 15.2 TH/MM3 (1.8-7.7); BASOPHIL % 0.2 % (0.0-2.0); HEMATOCRIT 43.2 % (35.0-46.0); HEMO FLAGS DIFF FINAL; LYMPH % 5.3 % (9.0-44.0); LYMPHOCYTE # 0.9 TH/MM3 (1.0-4.8); MEAN CELL VOLUME 87.5 FL (80.0-100.0); MEAN CORPUSCULAR HEMOGLOBIN 28.7 PG (27.0-34.0); MEAN CORPUSCULAR HGB CONC 32.7 % (32.0-36.0); MONO % 7.5 % (0.0-8.0); PLATELET COUNT 477 TH/MM3 (150-450); RED BLOOD COUNT 4.93 MIL/MM3 (4.00-5.30); RED CELL DISTRIBUTION WIDTH 13.6 % (11.6-17.2); WHITE BLOOD COUNT 17.4 TH/MM3 (4.0-11.0)
[2016-11-04 06:25] LABS: BICARBONATE 35.3 MEQ/L (21.0-32.0); MAGNESIUM 2.1 MG/DL (1.5-2.5); POTASSIUM 4.2 MEQ/L (3.5-5.1)
[2016-11-04] MEDS: RESP: ALBUTEROL 2.5 MG/IPRATROPIUM 0.5 MG NEB (SCH) NEB ×4 (07:40→21:29)
[2016-11-04] MEDS: amLODIPine BESYLATE 5 MG TAB PO SCH (08:44)
[2016-11-04] MEDS: DOXYCYCLINE HYCLATE 100 MG TAB PO SCH ×2 (08:44→21:07)
[2016-11-04] MEDS: cefTRIAXone INJ 2,000 MG in SODIUM CHLORIDE 0.9% INJ 100 ML IV SCH (08:45)
[2016-11-04] MEDS: BUDESONIDE-FORMOTEROL 160/4.5 MCG INHALER INH SCH ×2 (08:48→21:07)
--- NOTE | 2016-11-04 08:56 | PD.ONC.PN ---
Subjective Subjective Remarks Afebrile overnight. Patient resting comfortably. She had some nausea and vomiting overnight, which caused difficulty sleeping. She feels better now with zofran and phenergan. Objective Data Date Time Temp Pulse Resp B/P Pulse Ox O2 Delivery O2 Flow Rate FiO2 11/04/16 07:40 93 Nasal Cannula 2.00 11/04/16 07:26 98.4 78 18 163/97 95 11/04/16 04:00 97.8 77 20 148/92 94 11/04/16 00:00 97.5 84 20 162/104 94 11/03/16 20:49 94 Nasal Cannula 2.00 Humidified 11/03/16 20:00 97.6 80 20 166/104 94 11/03/16 19:27 82 11/03/16 16:03 94 Nasal Cannula 2.00 11/03/16 16:00 96.9 90 17 149/90 95 11/03/16 11:21 96.9 77 20 176/88 95 11/03/16 10:31 93 Nasal Cannula 2.00 11/04/16 11/04/16 11/04/16 07:00 15:00 23:00 Intake Total 240 ml 120 ml Output Total 850 ml Balance -610 ml 120 ml Result Diagram: 11/04/16 0538 11/04/16 0538 Laboratory Results Laboratory Tests Test 11/04/16 05:38 White Blood Count 17.4 TH/MM3 Red Blood Count 4.93 MIL/MM3 Hemoglobin 14.1 GM/DL Hematocrit 43.2 % Mean Corpuscular Volume 87.5 FL Mean Corpuscular Hemoglobin 28.7 PG Mean Corpuscular Hemoglobin 32.7 % Concent Red Cell Distribution Width 13.6 % Platelet Count 477 TH/MM3 Mean Platelet Volume 7.0 FL Neutrophils (%) (Auto) 87.0 % Lymphocytes (%) (Auto) 5.3 % Monocytes (%) (Auto) 7.5 % Eosinophils (%) (Auto) 0.0 % Basophils (%) (Auto) 0.2 % Neutrophils # (Auto) 15.2 TH/MM3 Lymphocytes # (Auto) 0.9 TH/MM3 Monocytes # (Auto) 1.3 TH/MM3 Eosinophils # (Auto) 0.0 TH/MM3 Basophils # (Auto) 0.0 TH/MM3 CBC Comment DIFF FINAL Differential Comment Sodium Level 130 MEQ/L Potassium Level 4.2 MEQ/L Chloride Level 86 MEQ/L Carbon Dioxide Level 35.3 MEQ/L Anion Gap 9 MEQ/L Blood Urea Nitrogen 14 MG/DL Creatinine 0.70 MG/DL Estimat Glomerular Filtration 85 ML/MIN Rate Random Glucose 111 MG/DL Calcium Level 9.7 MG/DL Magnesium Level 2.1 MG/DL Culture Results Microbiology Date/Time Procedure Status Source Growth 11/02/16 12:53 Gram Stain - Final Resulted Bronchial Washings Right Lower Lobe 11/02/16 12:53 Bronchial Culture - Preliminary Resulted Bronchial Washings Right Lower Lobe NO GROWTH IN 24 HOURS. 11/02/16 12:53 Acid Fast Stain - Final Resulted Bronchial Washings Right Lower Lobe NO ACID FAST BACILLI SEEN 11/02/16 12:53 Mycobacterial Culture Resulted Bronchial Washings Right Lower Lobe Pending 11/02/16 12:53 Fungal Smear - Final Resulted Bronchial Washings Right Lower Lobe NO FUNGAL ELEMENTS SEEN. 11/02/16 12:53 Fungal Culture Resulted Bronchial Washings Right Lower Lobe Pending Administered Medications Medications (Trade) Dose Ordered Sig/Félix Route PRN Reason Start Time Stop Time Status Last Admin Dose Admin Doxycycline Hyclate (Vibratab) 100 mg BID PO 10/31/16 09:00 11/14/16 08:59 11/04/16 08:44 Budesonide/ Formoterol Fumarate 2 puff 2 puff Q12HR INH 10/30/16 21:00 11/04/16 08:48 Ceftriaxone Sodium/Sodium Chloride (Rocephin Inj/NS Inj) 100 ml @ 200 mls/hr Q24H IV 10/31/16 08:00 11/04/16 08:45 Methylprednisolone Sodium Succinate (SoluMEDROL INJ) 40 mg Q8HR IV PUSH 11/01/16 14:00 11/04/16 05:45 Acetaminophen (Tylenol) 650 mg Q4H PRN PO HEADACHE /FEVER 11/01/16 16:45 11/02/16 21:27 Methadone HCl (Dolophine) 160 mg DAILY@06 PO 11/03/16 06:00 11/04/16 05:45 Ondansetron HCl (Zofran Inj) 4 mg Q6H PRN IV PUSH NAUSEA 11/03/16 08:30 11/04/16 05:44 Zolpidem Tartrate (Ambien) 10 mg HS PRN PO SLEEP 11/03/16 14:00 11/03/16 20:56 Enalaprilat (Vasotec Inj) 1.25 mg Q6H PRN IV SBP> OR = 180, DBP> OR = 100 11/03/16 14:15 11/04/16 00:46 Clonidine (Catapres) 0.1 mg Q6H PRN PO SBP> OR = 180, DBP> OR = 100 11/03/16 14:15 11/03/16 20:56 Promethazine HCl (Phenergan Inj) 12.5 mg Q6H PRN IM nausea 11/04/16 02:00 11/04/16 02:00 Amlodipine Besylate (Norvasc) 2.5 mg DAILY PO 11/04/16 09:00 11/04/16 08:44 Objective Remarks GENERAL: Middle aged female, sitting up in bed resting. SKIN: Warm and dry. HEAD: Normocephalic. EYES: left eye cornea cloudy NECK: Supple, trachea midline. CARDIOVASCULAR: Regular rate and rhythm RESPIRATORY: diminished at bases. occasional rhonchi. GASTROINTESTINAL: Abdomen soft, non-tender, nondistended. EXTREMITIES: No cyanosis NEUROLOGICAL: No obvious focal deficit. Awake, alert, and oriented x3. Assessment/Plan Problem List: (1) Lung mass Status: Acute Plan: 11/04/16: pathology pending. plan to place port tomorrow. 11/03/16 Bronchoscopy showed a friable bleeding mass in RLL bronchus. It was actively bleeding. Cytology pending. 11/02/16: having bronch/biopsy at 11AM today History/Workup --Lung mass with mediastinal adenopathy most consistent with primary bronchogenic carcinoma. --history of tobacco use and chronic obstructive pulmonary disease. --has had worsening shortness of breath and a nonproductive cough over the last six months. --developing right chest pain two weeks ago. --CT chest: large right hilar mass that extended to the infrahilar region causing collapse of the right lower lobe.4.3 x 7.0 x 8.2 cm. also a 2.8 cm subcarinal and 2.7 cm right suprahilar and 1.7 cm pretracheal adenopathy. --CT ab/pelvis: no mets disease. --bone scan: no mets --brain MRI: no mets --If her disease is localized to the thorax we could treat her with concurrent radiation and chemotherapy; however final treatment recommendations will depend on the tissue diagnosis Assessment 61y/o female with lung mass h/o Chronic obstructive pulmonary disease. Hypertension. Cervical precancerous lesion. Seizure twice, the last was 5 years ago. 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 Plan 1. plan to place port tomorrow, once cytology returns 2. await pathology Attending Statement The exam, history, and the medical decision-making described in the above note were completed with the assistance of the mid-level provider. I reviewed and agree with the findings presented. I attest that I had a [id number] encounter with the patient on the same day, and personally performed and documented my assessment and findings in the medical record. Nausea is controlled. Cytology pending. Place port after we have the diagnosis. Discussed with , plan to treat with chemo/XRT if confirmed to have lung cancer. Will possibly need to biopsy the right kidney mass after we address the lung mass. Kyra Pearce Nov 04, 2016 08:56 Harshil Braxton MD Nov 04, 2016 13:46
--- NOTE | 2016-11-04 14:55 | HHI.PR ---
Subjective Remarks Follow-up insomnia and hypertension. I'm been helping did not sleep well last night. History of hypertension untreated for the past year. Objective Vitals Vital Signs Date Time Temp Pulse Resp B/P Pulse Ox O2 Delivery O2 Flow Rate FiO2 11/04/16 11:43 96.9 82 20 174/83 95 11/04/16 07:40 93 Nasal Cannula 2.00 11/04/16 07:26 98.4 78 18 163/97 95 11/04/16 04:00 97.8 77 20 148/92 94 11/04/16 00:00 97.5 84 20 162/104 94 11/03/16 20:49 94 Nasal Cannula 2.00 Humidified 11/03/16 20:00 97.6 80 20 166/104 94 11/03/16 19:27 82 11/03/16 16:03 94 Nasal Cannula 2.00 11/03/16 16:00 96.9 90 17 149/90 95 I/O 11/03/16 11/03/16 11/03/16 11/04/16 11/04/16 11/04/16 07:00 15:00 23:00 07:00 15:00 23:00 Intake Total 480 ml 480 ml 240 ml 360 ml Output Total 400 ml 850 ml 600 ml Balance 480 ml 80 ml -610 ml -240 ml Intake Oral 480 ml 480 ml 240 ml 360 ml IV Total 0 ml Output Urine Total 400 ml 800 ml 600 ml Emesis 50 ml # Voids 2 # Bowel Movements 0 Result Diagram: 11/04/16 0538 11/04/16 0538 Imaging Last Impressions Chest X-Ray 11/02/16 0000 Signed Impressions: Service Date/Time: Wednesday, November 02, 2016 13:04 - CONCLUSION: 1. No pneumothorax, status post bronchoscopy. Ramiro Neves MD Chest Ultrasound 11/02/16 0000 Signed Impressions: Service Date/Time: Wednesday, November 02, 2016 22:31 - CONCLUSION: Dense consolidation of the right lower lobe. No pleural fluid seen. Mirza Donnelly Jr., MD Brain MRI 11/01/16 0000 Signed Impressions: Service Date/Time: Tuesday, November 01, 2016 15:15 - CONCLUSION: 1. No metastatic disease or other acute intracranial abnormality. 2. Mild, chronic white matter changes. 3. Chronically deformed left globe. Omar Venegas MD Bone Scan Nuclear Medicine 11/01/16 0000 Signed Impressions: Service Date/Time: Tuesday, November 01, 2016 12:02 - CONCLUSION: No definite scintigraphic evidence of osseous metastatic disease. Anup Bowman MD Abdomen/Pelvis CT 11/01/16 0000 Signed Impressions: Service Date/Time: Wednesday, November 02, 2016 20:35 - CONCLUSION: Slightly greater than 4.5 cm solid mass involving the lower pole of the right kidney. No other evidence of neoplastic disease in the abdomen or pelvis. Omar Arnold MD Chest CT 10/30/16 0000 Signed Impressions: Service Date/Time: Sunday, October 30, 2016 16:20 - CONCLUSION: 1. Large right hilar/infrahilar mass compatible with a central primary bronchogenic carcinoma. 2. Mediastinal and right hilar metastatic adenopathy. 3. Hepatic cysts. No metastatic disease demonstrated in the visualized upper abdomen or of the visualized osseous structures. Omar Venegas MD ADDENDUM: A right chest ultrasound was done a couple hours after the CT showing densely consolidated right lung base without perceptible pleural fluid. The noncontrast CT clearly shows heterogeneous attenuation of the right base, and in conjunction with the ultrasound must represent different age or degree of parenchymal consolidation or a combination of atelectasis and pneumonia. Omar Venegas MD Objective Remarks GENERAL: Well-nourished, well-developed patient in no distress SKIN: Warm and dry. Abrasion dorsal right forearm. HEAD: Atraumatic. Normocephalic. EYES: Opacified left eye CARDIOVASCULAR: Regular rate and rhythm. RESPIRATORY: No wheezes NEUROLOGICAL: Awake and alert. Motor grossly within normal limits. Normal speech. PSYCHIATRIC: Appropriate mood and affect; insight and judgment normal. 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 RR 30. Pneumonia suspected. Continue IV Rocephin started October 31 and doxycycline and date November 14 Lung mass/pleural effusion: Chest x-ray personally reviewed with obvious right sided pleural effusion. CT of the chest was performed which reveals 4.3 x 7.1 x 8.2 cm mass, likely bronchogenic carcinoma with mediastinal and right hilar metastatic adenopathy; moderate pleural effusion with loculation laterally at the base. Patient is a smoker. Mild hyponatremia which could be associated with this. -Oncology consultation Dr Braxton following appreciate recommendations. Consulted radiation oncology status post simulation -Pulmonology consultation. Dr. Calderón s/p bronchoscopy 11/02/16. Pathology pending. Brain MRI and bone scan, no metastatic disease noted on the scan. CT abd/pel with solid mass right kidney COPD exacerbation/acute respiratory failure: O2 88% on RA. Mild leukocytosis. Imaging as above. Majority of symptoms are likely due to the lung mass and pleural, patient has wheezing on exam. ED note indicates patient's nebulizer machine was not working. -She received 1 dose of IV azithromycin, but due to methadone use will switch to doxycycline [address] Calderón also recommends Rocephin 2 g IV daily. -Duonebs q 4 with albuterol q 2 prn -Solumedrol 40 mg q 6 h -Oxygen via NC Leukocytosis: WBC count increased from yesterday likely due to steroid use. -Monitor CBC Hypertension: -PRN clonidine ordered SBP>180 -Start Norvasc Methadone: Confirmed methadone dose with clinic. -Continue 160 mg daily Insomnia: Start Restoril DVT prevention: SCDs, out of bed Problem Qualifiers (1) Acute respiratory failure: Qualified Code: J96.01 - Acute respiratory failure with hypoxia Ld Ren MD Nov 04, 2016 14:55
[2016-11-04] MEDS ORDERED: TEMAZEPAM 7.5 MG CAP PO PRN ×2 (15:00→20:00)
[2016-11-04] MEDS: ACETAMINOPHEN 325 MG TAB PO PRN (15:38)
[2016-11-04] MEDS: cloNIDine HCL 0.1 MG TAB PO PRN (15:38)
[2016-11-04] MEDS ORDERED: VANCOMYCIN INJ 1,000 MG in SODIUM CHLOR 0.9% 250 ML INJ 250 ML IV SCH (18:00)
--- NOTE | 2016-11-04 19:04 | HHI.PR ---
Subjective Remarks Feels weak. Has some cough and mild hemoptysis. Poor sleep . Pain along right lower chest. Objective Vital Signs Date Time Temp Pulse Resp B/P Pulse Ox O2 Delivery O2 Flow Rate FiO2 11/04/16 16:01 96 Nasal Cannula 2.00 11/04/16 16:00 96.9 91 20 178/92 96 11/04/16 11:43 96.9 82 20 174/83 95 11/04/16 07:40 93 Nasal Cannula 2.00 11/04/16 07:26 98.4 78 18 163/97 95 11/04/16 04:00 97.8 77 20 148/92 94 11/04/16 00:00 97.5 84 20 162/104 94 11/03/16 20:49 94 Nasal Cannula 2.00 Humidified 11/03/16 20:00 97.6 80 20 166/104 94 11/03/16 19:27 82 I/O 11/03/16 11/03/16 11/03/16 11/04/16 11/04/16 11/04/16 07:00 15:00 23:00 07:00 15:00 23:00 Intake Total 480 ml 480 ml 240 ml 360 ml 120 ml Output Total 400 ml 850 ml 600 ml Balance 480 ml 80 ml -610 ml -240 ml 120 ml Intake Oral 480 ml 480 ml 240 ml 360 ml 120 ml IV Total 0 ml Output Urine Total 400 ml 800 ml 600 ml Emesis 50 ml # Voids 2 # Bowel Movements 0 Result Diagram: 11/04/16 0538 11/04/16 0538 Objective Remarks GENERAL: This is a middle-aged averagely built white female who is mildly dyspneic at rest. HEENT: Head normocephalic. Pupils are reactive and equal. Tongue is dry. Throat is clear. Nasal mucosa clear. NECK: Supple. No bruits, no thyroid enlargement or lymphadenopathy. CHEST: Equal movements with distant breath sounds with occ wheezes bilaterally. Breath sounds somewhat diminished over the right base. HEART: Heart sounds are irregular S1-S2. No murmur. No S3 gallop. ABDOMEN: Soft, benign. No masses, no organomegaly or tenderness. Bowel sounds are active. EXTREMITIES: No edema. No calf tenderness. NEUROLOGIC: Reflexes are 1 + with no gross motor deficits. . RECTAL: Exam is deferred. SKIN: No lesions observed. Assessment and Plan Assessment and Plan IMPRESSION 1. Right hilar mass with mediastinal adenopathy, rule out malignancy 2. COPD with chronic bronchitis and acute exacerbation 3. Probable right basilar pneumonia 4. Hypertension. Plan : 1. Cont antibiotics. 2. Oncology evaluation 3. radiation therapy planned 4. Add Ambien 10mg HS prn. 5. D/C Solumedrol 6. Nebs qid , duoneb. 7. Add Prednisone 20 mg daily. Chaim Calderón MD Nov 04, 2016 19:04
[2016-11-04] MEDS ORDERED: TEMAZEPAM 15 MG CAP PO PRN (20:00)
[2016-11-04] MEDS: LACTATED RINGER'S 1000 ML IV SCH (23:31)
[2016-11-05] VITALS (12 sets, daily range): BP systolic 112–167; BP diastolic 59–107; PULSE 72–101; RESP 16–20; TEMP 95.6–98.9; O2SAT 90–94
[2016-11-05] MEDS: ONDANSETRON HCL 4 MG/2 ML VIAL IV PUSH PRN ×3 (04:45→17:01)
[2016-11-05 05:14] LABS: BICARBONATE 35.3 MEQ/L (21.0-32.0); POTASSIUM 3.7 MEQ/L (3.5-5.1)
[2016-11-05] MEDS: METHADONE HCL 10 MG TAB PO SCH (05:36)
[2016-11-05] MEDS: cefTRIAXone INJ 2,000 MG in SODIUM CHLORIDE 0.9% INJ 100 ML IV SCH (07:30)
--- NOTE | 2016-11-05 07:53 | PD.ONC.PN ---
Subjective Subjective Remarks Afebrile overnight. Patient feeling nauseated today. She had no vomiting overnight, but is NPO for procedure, which she feels exacerbates her nausea. No other complaints. Objective Data Date Time Temp Pulse Resp B/P Pulse Ox O2 Delivery O2 Flow Rate FiO2 11/05/16 06:30 20 11/05/16 04:00 96.2 86 17 157/92 94 11/05/16 00:00 95.8 93 19 165/96 94 11/04/16 21:30 95 Nasal Cannula 2.00 11/04/16 20:00 98.2 98 19 142/97 94 11/04/16 20:00 91 11/04/16 20:00 Nasal Cannula 2.00 11/04/16 16:01 96 Nasal Cannula 2.00 11/04/16 16:00 96.9 91 20 178/92 96 11/04/16 11:43 96.9 82 20 174/83 95 11/05/16 11/05/16 11/05/16 07:00 15:00 23:00 Intake Total 240 ml Output Total 250 ml Balance -10 ml Result Diagram: 11/04/16 0538 11/05/16 0405 Laboratory Results Laboratory Tests Test 11/05/16 04:05 Sodium Level 128 MEQ/L Potassium Level 3.7 MEQ/L Chloride Level 87 MEQ/L Carbon Dioxide Level 35.3 MEQ/L Anion Gap 6 MEQ/L Blood Urea Nitrogen 18 MG/DL Creatinine 0.80 MG/DL Estimat Glomerular Filtration 73 ML/MIN Rate Random Glucose 97 MG/DL Calcium Level 9.4 MG/DL Magnesium Level 2.0 MG/DL Culture Results Microbiology Date/Time Procedure Status Source Growth 11/02/16 12:53 Gram Stain - Final Complete Bronchial Washings Right Lower Lobe 11/02/16 12:53 Bronchial Culture - Final Complete Bronchial Washings Right Lower Lobe NO GROWTH IN 48 HOURS. 11/02/16 12:53 Acid Fast Stain - Final Resulted Bronchial Washings Right Lower Lobe NO ACID FAST BACILLI SEEN 11/02/16 12:53 Mycobacterial Culture Resulted Bronchial Washings Right Lower Lobe Pending 11/02/16 12:53 Fungal Smear - Final Resulted Bronchial Washings Right Lower Lobe NO FUNGAL ELEMENTS SEEN. 11/02/16 12:53 Fungal Culture Resulted Bronchial Washings Right Lower Lobe Pending Administered Medications Medications (Trade) Dose Ordered Sig/Félix Route PRN Reason Start Time Stop Time Status Last Admin Dose Admin Doxycycline Hyclate (Vibratab) 100 mg BID PO 10/31/16 09:00 11/14/16 08:59 11/04/16 21:07 Budesonide/ Formoterol Fumarate 2 puff 2 puff Q12HR INH 10/30/16 21:00 11/04/16 21:07 Ceftriaxone Sodium/Sodium Chloride (Rocephin Inj/NS Inj) 100 ml @ 200 mls/hr Q24H IV 10/31/16 08:00 11/04/16 08:45 Acetaminophen (Tylenol) 650 mg Q4H PRN PO HEADACHE /FEVER 11/01/16 16:45 11/04/16 15:38 Methadone HCl (Dolophine) 160 mg DAILY@06 PO 11/03/16 06:00 11/05/16 05:36 Ondansetron HCl (Zofran Inj) 4 mg Q6H PRN IV PUSH NAUSEA 11/03/16 08:30 11/05/16 04:45 Enalaprilat (Vasotec Inj) 1.25 mg Q6H PRN IV SBP> OR = 180, DBP> OR = 100 11/03/16 14:15 11/04/16 00:46 Clonidine (Catapres) 0.1 mg Q6H PRN PO SBP> OR = 180, DBP> OR = 100 11/03/16 14:15 11/04/16 15:38 Promethazine HCl (Phenergan Inj) 12.5 mg Q6H PRN IM nausea 11/04/16 02:00 11/04/16 21:07 Amlodipine Besylate (Norvasc) 2.5 mg DAILY PO 11/04/16 09:00 11/04/16 08:44 Temazepam (Restoril) 15 mg HS PRN PO INSOMNIA 11/04/16 20:00 11/04/16 21:07 Objective Remarks GENERAL: Middle aged female, lying in bed in nad. SKIN: Warm and dry. HEAD: Normocephalic. EYES: left eye cornea cloudy NECK: Supple, trachea midline. CARDIOVASCULAR: Regular rate and rhythm RESPIRATORY: diminished at bases. anterior florez clear. GASTROINTESTINAL: Abdomen soft, non-tender, nondistended. EXTREMITIES: No cyanosis NEUROLOGICAL: awake and alert, normal speech. Assessment/Plan Problem List: (1) Lung mass Status: Acute Plan: 11/05/16: port placement today 11/04/16: pathology pending. plan to place port tomorrow. 11/03/16 Bronchoscopy showed a friable bleeding mass in RLL bronchus. It was actively bleeding. Cytology pending. 11/02/16: having bronch/biopsy at 11AM today History/Workup --Lung mass with mediastinal adenopathy most consistent with primary bronchogenic carcinoma. --history of tobacco use and chronic obstructive pulmonary disease. --has had worsening shortness of breath and a nonproductive cough over the last six months. --developing right chest pain two weeks ago. --CT chest: large right hilar mass that extended to the infrahilar region causing collapse of the right lower lobe.4.3 x 7.0 x 8.2 cm. also a 2.8 cm subcarinal and 2.7 cm right suprahilar and 1.7 cm pretracheal adenopathy. --CT ab/pelvis: no mets disease. --bone scan: no mets --brain MRI: no mets --If her disease is localized to the thorax we could treat her with concurrent radiation and chemotherapy; however final treatment recommendations will depend on the tissue diagnosis Assessment 61y/o female with lung mass h/o Chronic obstructive pulmonary disease. Hypertension. Cervical precancerous lesion. Seizure twice, the last was 5 years ago. 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 Plan 1. supportive care 2. port placement today 3. await cytology Attending Statement The exam, history, and the medical decision-making described in the above note were completed with the assistance of the mid-level provider. I reviewed and agree with the findings presented. I attest that I had a [id number] encounter with the patient on the same day, and personally performed and documented my assessment and findings in the medical record. No hemoptysis. SOB stable. Cytology pending. Port placement today. Plan to give concurrent chemotherapy with XRT if cytology confirm lung cancer. Kyra Pearce Nov 05, 2016 07:53 Harshil Braxton MD Nov 05, 2016 16:12
[2016-11-05] MEDS: RESP: ALBUTEROL 2.5 MG/IPRATROPIUM 0.5 MG NEB (SCH) NEB ×4 (08:54→19:41)
[2016-11-05] MEDS: amLODIPine BESYLATE 5 MG TAB PO SCH (09:01)
[2016-11-05] MEDS: DOXYCYCLINE HYCLATE 100 MG TAB PO SCH ×2 (09:01→20:01)
[2016-11-05] MEDS: predniSONE 20 MG TAB PO SCH (09:07)
[2016-11-05] MEDS ORDERED: MIDAZOLAM HCL 5 MG/5 ML VIAL ONE (10:48)
[2016-11-05] MEDS ORDERED: fentaNYL CITRATE 250 MCG/5 ML AMP ONE (10:48)
[2016-11-05] MEDS ORDERED: LIDOCAINE 1%/EPINEPHrine 1:100,000 SOLN 20 ML VIAL ONE (10:55)
--- NOTE | 2016-11-05 11:33 | PD.RAD ---
Post Procedure Progress Note Pre Procedure Diagnosis: (1) Lung mass Post Procedure Diagnosis: (1) Lung mass Procedure Date: Nov 05, 2016 Supervising Radiologist: Stevie Yu Estimated blood loss: 3cc Anesthesia: Local, Conscious Sedation Plan of Activity Patient to Unit: ROPU Patient Condition: Poor Additional Comments: Port placed via the right SUBCLAVIAN VEIN Catheter in good position See PACS Report for procedural detail/treatment tSevie Yu MD Nov 05, 2016 11:33
--- NOTE | 2016-11-05 13:24 | RADRPT ---
EXAM DATE/TIME: 11/05/2016 10:55 [facility] COMPARISON: No previous studies available for comparison. INDICATIONS : Patient with history of cervical cancer in need of port placement. MEDICAL HISTORY : 1.Detached retina in left eye 2.COPD 3.HTN 4.Seizures 5.Cervical cancer SURGICAL HISTORY : 1.Cervical cone surgery 2.D&C 3.Cataract and retinal surgery in left eye ENCOUNTER: Initial ACUITY: 1 year PAIN SCORE: 0/10 FLUORO TIME: 1.2 minutes SEDATION TIME: 30 minutes ACCESS: Right subclavian vein SEDATION: 1.) 5 mg midazolam (Versed) IV 2.) 300 mcg fentanyl (Sublimaze) IV Prophylactic antibiotics were administered with appropriate pre-procedure timing. Vancomycin within 2 hours of procedure, Ancef (or alternative) within 1 hour of procedure. DEVICE: 1. 8 [place] single lumen [id number] PROCEDURE : 1. Continuous pulse oximetry and EKG monitoring. 2. Intravenous conscious sedation. 3. Ultrasound guidance for venous access. 4. Fluoroscopic guided implantable central venous port placement. The patient was placed supine. The neck was prepped in sterile fashion. Full sterile technique was u sed, including cap, mask, sterile gloves and gown, and a large sterile sheet. Hand hygiene and 2% ch lorhexidine Betadine was utilized per protocol for cutaneous antisepsis with appropriate dry time for site. The skin and subcutaneous tissues were infiltrated with local anesthetic solution. Under direct ultrasound guidance, the right subclavian vein was accessed. The ultrasound images depi cting access guidance were stored and saved to PACS for permanent record. A subcutaneous pocket was created using blunt dissection. The port was introduced to the pocket. The catheter tubing was fed through a subcutaneous tunnel to the venotomy site. The catheter tubing was cut to a suitable length and then was introduced through a valved Peel-Away sheath and positioned with catheter tubing tip at the cavo-atrial junction level. The pocket incision was closed with subcuticular Vicryl suture. St wilfredo-Strips were applied. The port was flushed and locked with heparin solution per protocol. Steril e dressing was applied to the site. The patient tolerated the procedure well. Conscious sedation was performed with the prescribed dosages and duration as above. The patient nemo ated the procedure well and there were no complications. EKG and oximetry remained stable throughout the procedure. The patient was sent to post anesthesia recovery in stable condition. CONCLUSION: Uncomplicated ultrasound and fluoroscopic guided implanted central venous port catheter placement as described in detail above. An 8 [place] Power port was placed. Stevie Yu MD on November 05, 2016 at 13:22 Board Certified Radiologist. This report was verified electronically.
--- NOTE | 2016-11-05 15:20 | HHI.PR ---
Subjective Remarks Follow-up lung mass. Tolerated port placement. Patient denies nausea. Discussed with RN and pulmonary Objective Vitals Vital Signs Date Time Temp Pulse Resp B/P Pulse Ox O2 Delivery O2 Flow Rate FiO2 11/05/16 11:50 98.2 84 18 112/72 90 11/05/16 11:45 98.2 74 18 124/59 90 11/05/16 11:35 98.9 72 16 124/59 93 11/05/16 08:55 93 Nasal Cannula 2.00 11/05/16 08:30 Nasal Cannula 2.00 11/05/16 08:15 156/86 11/05/16 08:00 96.1 85 20 167/107 93 11/05/16 06:30 20 11/05/16 04:00 96.2 86 17 157/92 94 11/05/16 00:00 95.8 93 19 165/96 94 11/04/16 21:30 95 Nasal Cannula 2.00 11/04/16 20:00 98.2 98 19 142/97 94 11/04/16 20:00 91 11/04/16 20:00 Nasal Cannula 2.00 11/04/16 16:01 96 Nasal Cannula 2.00 11/04/16 16:00 96.9 91 20 178/92 96 I/O 11/04/16 11/04/16 11/04/16 11/05/16 11/05/16 11/05/16 07:00 15:00 23:00 07:00 15:00 23:00 Intake Total 240 ml 360 ml 360 ml 240 ml Output Total 850 ml 600 ml 1000 ml 250 ml Balance -610 ml -240 ml -640 ml -10 ml Intake Oral 240 ml 360 ml 360 ml 240 ml Output Urine Total 800 ml 600 ml 1000 ml 250 ml Emesis 50 ml # Bowel Movements 0 Result Diagram: 11/04/16 0538 11/05/16 0405 Imaging Last Impressions Port Line Insertion 11/05/16 0600 Signed Impressions: Service Date/Time: Saturday, November 05, 2016 10:55 - CONCLUSION: Uncomplicated ultrasound and fluoroscopic guided implanted central venous port catheter placement as described in detail above. An 8 [place] Power port was placed. Stevie Yu MD Chest X-Ray 11/02/16 0000 Signed Impressions: Service Date/Time: Wednesday, November 02, 2016 13:04 - CONCLUSION: 1. No pneumothorax, status post bronchoscopy. Ramiro Neves MD Chest Ultrasound 11/02/16 0000 Signed Impressions: Service Date/Time: Wednesday, November 02, 2016 22:31 - CONCLUSION: Dense consolidation of the right lower lobe. No pleural fluid seen. Mirza Donnelly Jr., MD Brain MRI 11/01/16 0000 Signed Impressions: Service Date/Time: Tuesday, November 01, 2016 15:15 - CONCLUSION: 1. No metastatic disease or other acute intracranial abnormality. 2. Mild, chronic white matter changes. 3. Chronically deformed left globe. Omar Venegas MD Bone Scan Nuclear Medicine 11/01/16 0000 Signed Impressions: Service Date/Time: Tuesday, November 01, 2016 12:02 - CONCLUSION: No definite scintigraphic evidence of osseous metastatic disease. Anup Bowman MD Abdomen/Pelvis CT 11/01/16 0000 Signed Impressions: Service Date/Time: Wednesday, November 02, 2016 20:35 - CONCLUSION: Slightly greater than 4.5 cm solid mass involving the lower pole of the right kidney. No other evidence of neoplastic disease in the abdomen or pelvis. Omar Arnold MD Chest CT 10/30/16 0000 Signed Impressions: Service Date/Time: Sunday, October 30, 2016 16:20 - CONCLUSION: 1. Large right hilar/infrahilar mass compatible with a central primary bronchogenic carcinoma. 2. Mediastinal and right hilar metastatic adenopathy. 3. Hepatic cysts. No metastatic disease demonstrated in the visualized upper abdomen or of the visualized osseous structures. Omar Venegas MD ADDENDUM: A right chest ultrasound was done a couple hours after the CT showing densely consolidated right lung base without perceptible pleural fluid. The noncontrast CT clearly shows heterogeneous attenuation of the right base, and in conjunction with the ultrasound must represent different age or degree of parenchymal consolidation or a combination of atelectasis and pneumonia. Omar Venegas MD Objective Remarks GENERAL: Well-nourished, well-developed patient in no distress SKIN: Warm and dry. Abrasion dorsal right forearm. HEAD: Atraumatic. Normocephalic. EYES: Opacified left eye CARDIOVASCULAR: Regular rate and rhythm. RESPIRATORY: No wheezes. [id number] in place NEUROLOGICAL: Awake and alert. Motor grossly within normal limits. Normal speech. PSYCHIATRIC: Appropriate mood and affect; insight and judgment normal. 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 RR 30. Pneumonia suspected. Continue IV Rocephin started October 31 and doxycycline and date November 14 Lung mass/pleural effusion: Chest x-ray personally reviewed with obvious right sided pleural effusion. CT of the chest was performed which reveals 4.3 x 7.1 x 8.2 cm mass, likely bronchogenic carcinoma with mediastinal and right hilar metastatic adenopathy; moderate pleural effusion with loculation laterally at the base. Patient is a smoker. Mild hyponatremia which could be associated with this. -Oncology consultation Dr Braxton following appreciate recommendations. Port placed. Consulted radiation oncology status post simulation -Pulmonology consultation. Dr. Calderón s/p bronchoscopy 11/02/16. Pathology pending. Brain MRI and bone scan, no metastatic disease noted on the scan. CT abd/pel with solid mass right kidney COPD exacerbation/acute respiratory failure: O2 88% on RA. Mild leukocytosis. Imaging as above. Majority of symptoms are likely due to the lung mass and pleural, patient has wheezing on exam. ED note indicates patient's nebulizer machine was not working. -She received 1 dose of IV azithromycin, but due to methadone use will switch to doxycycline 100 mg po bid to November 14. Dr. Calderón also recommends Rocephin 2 g IV daily started October 31. -Duonebs q 4 with albuterol q 2 prn -Solumedrol 40 mg q 6 h -Oxygen via NC Leukocytosis: WBC count increased likely due to steroid use. -Monitor CBC Hypertension: -PRN clonidine ordered SBP>180 -Improving continue Norvasc Methadone: Confirmed methadone dose with clinic. -Continue 160 mg daily Insomnia: As needed Restoril DVT prevention: SCDs, out of bed Discharge Planning Not ready for discharge Problem Qualifiers (1) Acute respiratory failure: Qualified Code: J96.01 - Acute respiratory failure with hypoxia Ld Ren MD Nov 05, 2016 15:20
--- NOTE | 2016-11-05 19:07 | HHI.PR ---
Subjective Remarks Feels Better . Has some cough and mild hemoptysis. Better sleep . Pain along right lower chest. Had Port placed. For radiation soon Objective Vital Signs Date Time Temp Pulse Resp B/P Pulse Ox O2 Delivery O2 Flow Rate FiO2 11/05/16 16:45 94 Nasal Cannula 2.00 11/05/16 16:00 95.6 93 17 126/72 94 11/05/16 11:50 98.2 84 18 112/72 90 11/05/16 11:45 98.2 74 18 124/59 90 11/05/16 11:35 98.9 72 16 124/59 93 11/05/16 08:55 93 Nasal Cannula 2.00 11/05/16 08:30 Nasal Cannula 2.00 11/05/16 08:15 156/86 11/05/16 08:00 96.1 85 20 167/107 93 11/05/16 06:30 20 11/05/16 04:00 96.2 86 17 157/92 94 11/05/16 00:00 95.8 93 19 165/96 94 11/04/16 21:30 95 Nasal Cannula 2.00 11/04/16 20:00 98.2 98 19 142/97 94 11/04/16 20:00 91 11/04/16 20:00 Nasal Cannula 2.00 I/O 11/04/16 11/04/16 11/04/16 11/05/16 11/05/16 11/05/16 07:00 15:00 23:00 07:00 15:00 23:00 Intake Total 240 ml 360 ml 360 ml 240 ml 340 ml Output Total 850 ml 600 ml 1000 ml 250 ml 600 ml Balance -610 ml -240 ml -640 ml -10 ml -260 ml Intake Oral 240 ml 360 ml 360 ml 240 ml 340 ml Output Urine Total 800 ml 600 ml 1000 ml 250 ml 600 ml Emesis 50 ml # Bowel Movements 0 0 Result Diagram: 11/04/16 0538 11/05/16 0405 Objective Remarks GENERAL: This is a middle-aged averagely built white female who is alert. HEENT: Head normocephalic. Pupils are reactive and equal. Tongue is dry. Throat is clear. Nasal mucosa clear. NECK: Supple. No bruits, no thyroid enlargement or lymphadenopathy. CHEST: Equal movements with distant breath sounds with occ wheezes bilaterally. Breath sounds somewhat diminished over the right base. HEART: Heart sounds are irregular S1-S2. No murmur. No S3 gallop. ABDOMEN: Soft, benign. No masses, no organomegaly or tenderness. Bowel sounds are active. EXTREMITIES: No edema. No calf tenderness. NEUROLOGIC: Reflexes are 1 + with no gross motor deficits. . RECTAL: Exam is deferred. SKIN: No lesions observed. Assessment and Plan Assessment and Plan IMPRESSION 1. Right hilar mass with mediastinal adenopathy, rule out malignancy 2. COPD with chronic bronchitis and acute exacerbation 3. Probable right basilar pneumonia 4. Hypertension. 5. Ca Lung , Squamous cell. Plan : 1. Cont antibiotics. and switch to PO 2. Oncology evaluation 3. radiation therapy planned 4. Add Ambien 10mg HS prn. 5. Radiation therapy for Right hilum 6. Nebs qid , duoneb. 7. Prednisone 20 mg daily. Chaim Calderón MD Nov 05, 2016 19:07
[2016-11-05] MEDS: LACTATED RINGER'S 1000 ML IV SCH (20:02)
[2016-11-05] MEDS: BUDESONIDE-FORMOTEROL 160/4.5 MCG INHALER INH SCH (20:02)
[2016-11-05] MEDS: PROMETHAZINE INJ 25 MG/ML VIAL IM PRN (21:00)
[2016-11-05] MEDS ORDERED: TEMAZEPAM 15 MG CAP PO PRN (21:30)
[2016-11-05] MEDS: TEMAZEPAM 7.5 MG CAP PO PRN (21:40)
[2016-11-06] VITALS (8 sets, daily range): BP systolic 115–157; BP diastolic 67–89; PULSE 87–98; RESP 17–20; TEMP 97.2–98.8; O2SAT 91–98
[2016-11-06] MEDS: METHADONE HCL 10 MG TAB PO SCH (05:41)
[2016-11-06] MEDS: BUDESONIDE-FORMOTEROL 160/4.5 MCG INHALER INH SCH ×2 (09:00→20:27)
[2016-11-06] MEDS: predniSONE 20 MG TAB PO SCH (09:23)
[2016-11-06] MEDS: DOXYCYCLINE HYCLATE 100 MG TAB PO SCH ×2 (09:23→20:27)
[2016-11-06] MEDS: amLODIPine BESYLATE 5 MG TAB PO SCH (09:23)
[2016-11-06] MEDS: ONDANSETRON HCL 4 MG/2 ML VIAL IV PUSH PRN (09:31)
[2016-11-06] MEDS: RESP: ALBUTEROL 2.5 MG/IPRATROPIUM 0.5 MG NEB (SCH) NEB ×4 (09:51→20:52)
--- NOTE | 2016-11-06 15:47 | HHI.PR ---
Subjective Remarks Follow-up lung cancer. Patient informed of pathology report. She has no new complaints sleeping better on Restoril. Discussed with RN Objective Vitals Vital Signs Date Time Temp Pulse Resp B/P Pulse Ox O2 Delivery O2 Flow Rate FiO2 11/06/16 12:00 98.1 87 17 115/78 92 11/06/16 09:51 93 Nasal Cannula 2.00 11/06/16 09:35 92 Room Air 11/06/16 08:00 97.4 88 18 126/89 91 11/06/16 04:00 97.9 87 17 134/79 94 11/06/16 00:00 97.2 92 17 135/79 94 11/05/16 20:05 93 11/05/16 20:00 98.8 101 19 136/80 94 11/05/16 19:00 Nasal Cannula 3.00 11/05/16 16:45 94 Nasal Cannula 2.00 11/05/16 16:00 95.6 93 17 126/72 94 I/O 11/05/16 11/05/16 11/05/16 11/06/16 11/06/16 11/06/16 07:00 15:00 23:00 07:00 15:00 23:00 Intake Total 240 ml 340 ml 480 ml 240 ml 560 ml Output Total 250 ml 600 ml 300 ml 250 ml 600 ml Balance -10 ml -260 ml 180 ml -10 ml -40 ml Intake Oral 240 ml 340 ml 480 ml 240 ml 560 ml IV Total 0 ml 0 ml Output Urine Total 250 ml 600 ml 300 ml 250 ml 600 ml # Bowel Movements 0 1 Result Diagram: 11/04/16 0538 11/05/16 0405 Objective Remarks GENERAL: Well-nourished, well-developed patient in no distress SKIN: Warm and dry. Abrasion dorsal right forearm. HEAD: Atraumatic. Normocephalic. EYES: Opacified left eye CARDIOVASCULAR: Regular rate and rhythm. RESPIRATORY: No wheezes. [id number] in place NEUROLOGICAL: Awake and alert. Motor grossly within normal limits. Normal speech. PSYCHIATRIC: Appropriate mood and affect; insight and judgment normal. 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 RR 30. Pneumonia suspected. Continue IV Rocephin started October 31 and doxycycline and date November 14 Lung mass/pleural effusion: Chest x-ray personally reviewed with obvious right sided pleural effusion. CT of the chest was performed which reveals 4.3 x 7.1 x 8.2 cm mass, likely bronchogenic carcinoma with mediastinal and right hilar metastatic adenopathy; moderate pleural effusion with loculation laterally at the base. Patient is a smoker. Mild hyponatremia which could be associated with this. -Oncology consultation Dr Braxton following appreciate recommendations. Port placed. Consulted radiation oncology status post simulation -Pulmonology consultation. Dr. Calderón s/p bronchoscopy 11/02/16. Pathology favors squamous cell cancer Brain MRI and bone scan, no metastatic disease noted on the scan. CT abd/pel with solid mass right kidney COPD exacerbation/acute respiratory failure: O2 88% on RA. Mild leukocytosis. Imaging as above. Majority of symptoms are likely due to the lung mass and pleural, patient has wheezing on exam. ED note indicates patient's nebulizer machine was not working. -She received 1 dose of IV azithromycin, but due to methadone use will switch to doxycycline 100 mg po bid to November 14. Dr. Calderón also recommends Rocephin 2 g IV daily started October 31. -Duonebs q 4 with albuterol q 2 prn -Solumedrol IV switched to prednisone -Oxygen via NC Leukocytosis: WBC count increased likely due to steroid use. -Monitor CBC Hypertension: -PRN clonidine ordered SBP>180 -Improving continue Norvasc Methadone: Confirmed methadone dose with clinic. -Continue 160 mg daily Insomnia: As needed Restoril DVT prevention: SCDs, out of bed Discharge Planning Not ready for discharge Problem Qualifiers (1) Acute respiratory failure: Qualified Code: J96.01 - Acute respiratory failure with hypoxia Ld Ren MD Nov 06, 2016 15:47
[2016-11-06] MEDS: TEMAZEPAM 7.5 MG CAP PO PRN (20:32)
[2016-11-06] MEDS: LACTATED RINGER'S 1000 ML IV SCH (23:45)
[2016-11-07] VITALS (8 sets, daily range): BP systolic 122–159; BP diastolic 80–102; PULSE 75–93; RESP 18–20; TEMP 97.4–98.9; O2SAT 92–96
[2016-11-07] MEDS: METHADONE HCL 10 MG TAB PO SCH (04:56)
[2016-11-07] MEDS: RESP: ALBUTEROL 2.5 MG/IPRATROPIUM 0.5 MG NEB (SCH) NEB ×2 (09:00→11:46)
[2016-11-07] MEDS: predniSONE 20 MG TAB PO SCH (09:34)
[2016-11-07] MEDS: BUDESONIDE-FORMOTEROL 160/4.5 MCG INHALER INH SCH ×2 (09:35→20:23)
[2016-11-07] MEDS: DOXYCYCLINE HYCLATE 100 MG TAB PO SCH ×2 (09:35→20:22)
[2016-11-07] MEDS: amLODIPine BESYLATE 5 MG TAB PO SCH (09:35)
--- NOTE | 2016-11-07 10:44 | HHI.PR ---
Subjective Remarks F/u lung ca. No complaints dw RN Objective Vitals Vital Signs Date Time Temp Pulse Resp B/P Pulse Ox O2 Delivery O2 Flow Rate FiO2 11/07/16 09:02 92 Nasal Cannula 3.00 11/07/16 08:00 98.3 87 18 139/91 93 11/07/16 04:00 98.4 89 20 151/84 96 11/07/16 00:00 97.4 92 20 141/80 95 11/06/16 20:55 98 Nasal Cannula 2.00 11/06/16 20:00 98.8 96 20 157/87 97 11/06/16 16:00 98.4 98 17 130/67 92 11/06/16 12:00 98.1 87 17 115/78 92 I/O 11/06/16 11/06/16 11/06/16 11/07/16 11/07/16 11/07/16 07:00 15:00 23:00 07:00 15:00 23:00 Intake Total 240 ml 560 ml 360 ml 290 ml Output Total 250 ml 600 ml 400 ml 350 ml Balance -10 ml -40 ml -40 ml -60 ml Intake Oral 240 ml 560 ml 360 ml 290 ml IV Total 0 ml Output Urine Total 250 ml 600 ml 400 ml 350 ml # Bowel Movements 1 0 0 Result Diagram: 11/04/16 0538 11/05/16 0405 Objective Remarks GENERAL: Well-nourished, well-developed patient in no distress SKIN: Warm and dry. Abrasion dorsal right forearm. HEAD: Atraumatic. Normocephalic. EYES: Opacified left eye CARDIOVASCULAR: Regular rate and rhythm. RESPIRATORY: No wheezes. [id number] in place NEUROLOGICAL: Awake and alert. Motor grossly within normal limits. Normal speech. PSYCHIATRIC: Appropriate mood and affect; insight and judgment normal. 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 RR 30. Pneumonia suspected. Continue doxycycline end date November 14. Dc Rocephin Lung mass/pleural effusion: Chest x-ray personally reviewed with obvious right sided pleural effusion. CT of the chest was performed which reveals 4.3 x 7.1 x 8.2 cm mass, likely bronchogenic carcinoma with mediastinal and right hilar metastatic adenopathy; moderate pleural effusion with loculation laterally at the base. Patient is a smoker. Mild hyponatremia which could be associated with this. -Oncology consultation Dr Braxton following appreciate recommendations. Port placed likely start chemo soon will f/u in am. Consulted radiation oncology status post simulation -Pulmonology consultation. Dr. Calderón s/p bronchoscopy 11/02/16. Pathology favors squamous cell cancer Brain MRI and bone scan, no metastatic disease noted on the scan. CT abd/pel with solid mass right kidney COPD exacerbation/acute respiratory failure: O2 88% on RA. Mild leukocytosis. Imaging as above. Majority of symptoms are likely due to the lung mass and pleural, patient has wheezing on exam. ED note indicates patient's nebulizer machine was not working. -She received 1 dose of IV azithromycin, but due to methadone use will switch to doxycycline 100 mg po bid to November 14. Dr. Calderón also recommends Rocephin 2 g IV daily which patient has already completed -Duonebs q 4 with albuterol q 2 prn -Solumedrol IV switched to prednisone -Oxygen via NC Leukocytosis: WBC count increased likely due to steroid use. -Monitor CBC Hypertension: -PRN clonidine ordered SBP>180 -Improving continue Norvasc Methadone: Confirmed methadone dose with clinic. -Continue 160 mg daily Insomnia: As needed Restoril DVT prevention: SCDs, out of bed Discharge Planning Not ready for discharge Problem Qualifiers (1) Acute respiratory failure: Qualified Code: J96.01 - Acute respiratory failure with hypoxia Ld Ren MD Nov 07, 2016 10:44
[2016-11-07] MEDS: ACETAMINOPHEN 325 MG TAB PO PRN (20:22)
[2016-11-07] MEDS: TEMAZEPAM 7.5 MG CAP PO PRN (20:22)
[2016-11-07] MEDS: LACTATED RINGER'S 1000 ML IV SCH (21:37)
[2016-11-08] VITALS (8 sets, daily range): BP systolic 138–155; BP diastolic 78–92; PULSE 79–109; RESP 17–20; TEMP 97.4–98.7; O2SAT 93–98
[2016-11-08] MEDS: METHADONE HCL 10 MG TAB PO SCH (05:22)
[2016-11-08] MEDS: predniSONE 20 MG TAB PO SCH (08:20)
[2016-11-08] MEDS: amLODIPine BESYLATE 5 MG TAB PO SCH (08:21)
[2016-11-08] MEDS: BUDESONIDE-FORMOTEROL 160/4.5 MCG INHALER INH SCH ×2 (08:21→19:47)
[2016-11-08] MEDS: DOXYCYCLINE HYCLATE 100 MG TAB PO SCH ×2 (08:21→19:47)
[2016-11-08] MEDS: ONDANSETRON HCL 4 MG/2 ML VIAL IV PUSH PRN (09:15)
--- NOTE | 2016-11-08 11:27 | PD.ONC.PN ---
Subjective Subjective Remarks Afebrile overnight. Pt states she became nauseous and threw up her breakfast. She received Zofran and feels much better. She is coping fairly well with her new dx of lung cancer. She denies SOB or pain. Objective Data Date Time Temp Pulse Resp B/P Pulse Ox O2 Delivery O2 Flow Rate FiO2 11/08/16 11:00 95 Nasal Cannula 3.00 11/08/16 07:53 97.4 82 19 138/92 95 11/08/16 04:00 97.6 89 20 154/88 95 11/08/16 00:00 97.6 89 20 154/88 95 11/07/16 20:30 Nasal Cannula 2.00 21 11/07/16 20:00 98.8 91 20 159/102 96 11/07/16 20:00 93 11/07/16 18:52 94 Nasal Cannula 2.00 11/07/16 16:00 98.9 89 18 122/85 94 11/07/16 12:00 98.0 75 19 122/87 92 11/08/16 11/08/16 11/08/16 07:00 15:00 23:00 Intake Total 240 ml 120 ml Output Total 500 ml Balance -260 ml 120 ml Result Diagram: 11/04/16 0538 11/05/16 0405 Administered Medications Medications (Trade) Dose Ordered Sig/Félix Route PRN Reason Start Time Stop Time Status Last Admin Dose Admin Doxycycline Hyclate (Vibratab) 100 mg BID PO 10/31/16 09:00 11/14/16 08:59 11/08/16 08:21 Budesonide/ Formoterol Fumarate (Symbicort 160-4.5 Inh) 2 puff Q12HR INH 10/30/16 21:00 11/08/16 08:21 Acetaminophen (Tylenol) 650 mg Q4H PRN PO HEADACHE /FEVER 11/01/16 16:45 11/07/16 20:22 Methadone HCl (Dolophine) 160 mg DAILY@06 PO 11/03/16 06:00 11/08/16 05:22 Ondansetron HCl (Zofran Inj) 4 mg Q6H PRN IV PUSH NAUSEA 11/03/16 08:30 11/08/16 09:15 Enalaprilat (Vasotec Inj) 1.25 mg Q6H PRN IV SBP> OR = 180, DBP> OR = 100 11/03/16 14:15 11/04/16 00:46 Clonidine (Catapres) 0.1 mg Q6H PRN PO SBP> OR = 180, DBP> OR = 100 11/03/16 14:15 11/04/16 15:38 Promethazine HCl (Phenergan Inj) 12.5 mg Q6H PRN IM nausea 11/04/16 02:00 11/05/16 21:00 Amlodipine Besylate (Norvasc) 2.5 mg DAILY PO 11/04/16 09:00 11/08/16 08:21 Prednisone (Deltasone) 20 mg DAILY PO 11/05/16 09:00 11/08/16 08:20 Temazepam (Restoril) 7.5 mg HS PRN PO INSOMNIA 11/05/16 21:45 11/07/16 20:22 Objective Remarks GENERAL: Older female, lying in bed in no distress. SKIN: Warm and dry. No oozing from port placement. HEAD: Normocephalic. EYES: No injection or drainage. L eye blind. NECK: Supple, trachea midline. CARDIOVASCULAR: +S1/S2. No murmur appreciated. RESPIRATORY: Lungs clear throughout. Diminished RLL. Breathing easy and unlabored. GASTROINTESTINAL: +BS. EXTREMITIES: No edema. NEUROLOGICAL: A&Ox3. No focal deficits. Assessment/Plan Problem List: (1) Lung mass Status: Acute Plan: 11/08/16: Will speak with radiologist. Attempt to get a tissue biopsy of lung mass prior to initiating chemotherapy/radiation. 11/05/16: port placement today 11/04/16: pathology pending. plan to place port tomorrow. 11/03/16 Bronchoscopy showed a friable bleeding mass in RLL bronchus. It was actively bleeding. Cytology pending. 11/02/16: having bronch/biopsy at 11AM today -- Bronchoscopy washings on 11/03/16 came back + for malignant cells. Favoring squamous cell carcinoma. It would be ideal to confirm this by a tissue sample prior to initiating treatment. History/Workup --Lung mass with mediastinal adenopathy most consistent with primary bronchogenic carcinoma. --history of tobacco use and chronic obstructive pulmonary disease. --has had worsening shortness of breath and a nonproductive cough over the last six months. --developing right chest pain two weeks ago. --CT chest: large right hilar mass that extended to the infrahilar region causing collapse of the right lower lobe.4.3 x 7.0 x 8.2 cm. also a 2.8 cm subcarinal and 2.7 cm right suprahilar and 1.7 cm pretracheal adenopathy. --CT ab/pelvis: no mets disease. --bone scan: no mets --brain MRI: no mets --If her disease is localized to the thorax we could treat her with concurrent radiation and chemotherapy; however final treatment recommendations will depend on the tissue diagnosis Assessment 61y/o female with lung mass h/o Chronic obstructive pulmonary disease. Hypertension. Cervical precancerous lesion. Seizure twice, the last was 5 years ago. 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 Plan 1. Consult IR for possible CT guided biopsy of lung mass to confirm suspected squamous cell carcinoma. 2. Cytology results from bronchoscopy showed probable squamous cell carcinoma. It would be ideal to confirm this with a tissue sample biopsy prior to starting treatment. 3. Continue supportive care. Attending Statement The exam, history, and the medical decision-making described in the above note were completed with the assistance of the mid-level provider. I reviewed and agree with the findings presented. I attest that I had a [id number] encounter with the patient on the same day, and personally performed and documented my assessment and findings in the medical record. Review cytology with pt. She has non small cell lung cancer, at least stage IIIA. Plan to treat with concurrent XRT/chemotx. She has had XRT simulation. Will discuss with radiology to see if we can get more tissue to run mutation study if the tumor can be biopsy without much difficulty. Rose Guadarrama Nov 08, 2016 11:27 Harshil Braxton MD Nov 08, 2016 15:40
--- NOTE | 2016-11-08 14:33 | HHI.PR ---
Subjective Remarks Follow-up follow lung cancer. Patient has no complaints. Discussed with oncology who plans to do a repeat biopsy to confirm diagnosis of lung cancer, patient agreeable Objective Vitals Vital Signs Date Time Temp Pulse Resp B/P Pulse Ox O2 Delivery O2 Flow Rate FiO2 11/08/16 12:00 97.8 109 17 139/78 98 11/08/16 11:00 95 Nasal Cannula 3.00 11/08/16 08:48 Nasal Cannula 2.00 21 11/08/16 07:53 97.4 82 19 138/92 95 11/08/16 04:00 97.6 89 20 154/88 95 11/08/16 00:00 97.6 89 20 154/88 95 11/07/16 20:30 Nasal Cannula 2.00 21 11/07/16 20:00 98.8 91 20 159/102 96 11/07/16 20:00 93 11/07/16 18:52 94 Nasal Cannula 2.00 11/07/16 16:00 98.9 89 18 122/85 94 I/O 11/07/16 11/07/16 11/07/16 11/08/16 11/08/16 11/08/16 07:00 15:00 23:00 07:00 15:00 23:00 Intake Total 290 ml 340 ml 240 ml 240 ml 240 ml Output Total 350 ml 700 ml 400 ml 500 ml Balance -60 ml -360 ml -160 ml -260 ml 240 ml Intake Oral 290 ml 340 ml 240 ml 240 ml 240 ml IV Total 0 ml 0 ml Output Urine Total 350 ml 700 ml 400 ml 500 ml # Bowel Movements 0 0 0 0 Result Diagram: 11/04/16 0538 11/05/16 0405 Objective Remarks GENERAL: Well-nourished, well-developed patient in no distress SKIN: Warm and dry. Abrasion dorsal right forearm. HEAD: Atraumatic. Normocephalic. EYES: Opacified left eye CARDIOVASCULAR: Regular rate and rhythm. RESPIRATORY: No wheezes. [id number]-[id number] in place NEUROLOGICAL: Awake and alert. Motor grossly within normal limits. Normal speech. PSYCHIATRIC: Appropriate mood and affect; insight and judgment normal. 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 RR 30. Pneumonia suspected. Continue doxycycline end date November 14. Dc Rocephin Lung mass/pleural effusion: Chest x-ray personally reviewed with obvious right sided pleural effusion. CT of the chest was performed which reveals 4.3 x 7.1 x 8.2 cm mass, likely bronchogenic carcinoma with mediastinal and right hilar metastatic adenopathy; moderate pleural effusion with loculation laterally at the base. Patient is a smoker. Mild hyponatremia which could be associated with this. -Oncology consultation Dr Braxton following appreciate recommendations. Port placed likely start chemo soon. Consulted radiation oncology status post simulation -Pulmonology consultation. Dr. Calderón s/p bronchoscopy 11/02/16. Pathology favors squamous cell cancer. Oncology wants repeat biopsy for confirmation before starting treatment Brain MRI and bone scan, no metastatic disease noted on the scan. CT abd/pel with solid mass right kidney COPD exacerbation/acute respiratory failure: O2 88% on RA. Mild leukocytosis. Imaging as above. Majority of symptoms are likely due to the lung mass and pleural, patient has wheezing on exam. ED note indicates patient's nebulizer machine was not working. -She received 1 dose of IV azithromycin, but due to methadone use will switch to doxycycline 100 mg po bid to November 14. Dr. Calderón also recommends Rocephin 2 g IV daily which patient has already completed -Duonebs q 4 with albuterol q 2 prn -Solumedrol IV switched to prednisone -Oxygen via NC Leukocytosis: WBC count increased likely due to steroid use. -Monitor CBC Hypertension: -PRN clonidine ordered SBP>180 -Improving continue Norvasc Methadone: Confirmed methadone dose with clinic. -Continue 160 mg daily Insomnia: As needed Restoril DVT prevention: SCDs, out of bed Discharge Planning Not ready for discharge Problem Qualifiers (1) Acute respiratory failure: Qualified Code: J96.01 - Acute respiratory failure with hypoxia Ld Ren MD Nov 08, 2016 14:33
[2016-11-08] MEDS: LACTATED RINGER'S 1000 ML IV SCH (19:48)
[2016-11-08] MEDS: TEMAZEPAM 7.5 MG CAP PO PRN (19:50)
--- NOTE | 2016-11-08 20:23 | HHI.PR ---
Subjective Remarks Improved. Has some cough and mild hemoptysis.poor sleep . . Had Port placed. For needle biopsy of lung mass Objective Vital Signs Date Time Temp Pulse Resp B/P Pulse Ox O2 Delivery O2 Flow Rate FiO2 11/08/16 16:00 97.6 79 20 145/84 95 11/08/16 12:00 97.8 109 17 139/78 98 11/08/16 11:00 95 Nasal Cannula 3.00 11/08/16 08:48 Nasal Cannula 2.00 21 11/08/16 07:53 97.4 82 19 138/92 95 11/08/16 04:00 97.6 89 20 154/88 95 11/08/16 00:00 97.6 89 20 154/88 95 11/07/16 20:30 Nasal Cannula 2.00 21 I/O 11/07/16 11/07/16 11/07/16 11/08/16 11/08/16 11/08/16 07:00 15:00 23:00 07:00 15:00 23:00 Intake Total 290 ml 340 ml 240 ml 240 ml 1000 ml Output Total 350 ml 700 ml 400 ml 500 ml 650 ml Balance -60 ml -360 ml -160 ml -260 ml 350 ml Intake Oral 290 ml 340 ml 240 ml 240 ml 1000 ml IV Total 0 ml 0 ml 0 ml Output Urine Total 350 ml 700 ml 400 ml 500 ml 650 ml # Bowel Movements 0 0 0 0 1 Result Diagram: 11/04/16 0538 11/05/16 0405 Objective Remarks GENERAL: This is a middle-aged averagely built white female who is alert. HEENT: Head normocephalic. Pupils are reactive and equal. Tongue is clear Throat is clear. Nasal mucosa clear. NECK: Supple. No bruits, no thyroid enlargement or lymphadenopathy. CHEST: Equal movements with distant breath sounds with occ wheezes bilaterally. Breath sounds somewhat diminished over the right base. HEART: Heart sounds are irregular S1-S2. No murmur. No S3 gallop. ABDOMEN: Soft, benign. No masses, no organomegaly or tenderness. Bowel sounds are active. EXTREMITIES: No edema. No calf tenderness. NEUROLOGIC: Reflexes are 1 + with no gross motor deficits. . RECTAL: Exam is deferred. SKIN: No lesions observed. Assessment and Plan Assessment and Plan IMPRESSION 1. Right hilar mass with mediastinal adenopathy, rule out malignancy 2. COPD with chronic bronchitis and acute exacerbation 3. Probable right basilar pneumonia 4. Hypertension. 5. Ca Lung , Squamous cell. Plan : 1. Cont antibiotics PO 2. Oncology evaluation 3. radiation therapy planned 4. Ambien 10mg HS prn. 5. CT needle Biopsy of lung mass 6. Nebs vashti , carlb. 7. Prednisone 10 mg daily. Chaim Calderón MD Nov 08, 2016 20:23
[2016-11-09] MEDS: ONDANSETRON HCL 4 MG/2 ML VIAL IV PUSH PRN ×3 (00:18→17:07)
[2016-11-09] MEDS: METHADONE HCL 10 MG TAB PO SCH (05:14)
[2016-11-09 05:36] LABS: AUTOMATED NEUTROPHIL # 12.2 TH/MM3 (1.8-7.7); BASOPHIL % 0.2 % (0.0-2.0); EOSINOPHIL # 0.3 TH/MM3 (0-0.4); EOSINOPHIL % 1.8 % (0.0-4.0); HEMATOCRIT 41.6 % (35.0-46.0); HEMO FLAGS DIFF FINAL; LYMPH % 8.7 % (9.0-44.0); LYMPHOCYTE # 1.3 TH/MM3 (1.0-4.8); MEAN CELL VOLUME 88.5 FL (80.0-100.0); MEAN CORPUSCULAR HEMOGLOBIN 29.1 PG (27.0-34.0); MEAN CORPUSCULAR HGB CONC 32.9 % (32.0-36.0); MONO % 9.2 % (0.0-8.0); NEUT % 80.1 % (16.0-70.0); PLATELET COUNT 313 TH/MM3 (150-450); RED BLOOD COUNT 4.71 MIL/MM3 (4.00-5.30); RED CELL DISTRIBUTION WIDTH 13.1 % (11.6-17.2); WHITE BLOOD COUNT 15.2 TH/MM3 (4.0-11.0)
[2016-11-09 05:55] LABS: ALT (GPT) 24 U/L (10-53); ANION GAP 4 MEQ/L (5-15); AST (GOT) 15 U/L (15-37); BICARBONATE 36.1 MEQ/L (21.0-32.0); BLOOD UREA NITROGEN 15 MG/DL (7-18); CHLORIDE 92 MEQ/L (98-107); GLOMERULAR FILTRATION RATE 77 ML/MIN (>89); POTASSIUM 4.1 MEQ/L (3.5-5.1); SODIUM (NA) 132 MEQ/L (136-145)
[2016-11-09 05:58] LABS: ALKALINE PHOSPHATASE 55 U/L (45-117); TOTAL BILIRUBIN ADULT 0.6 MG/DL (0.2-1.0)
[2016-11-09 08:00] VITALS: BP 133/67; PULSE 91; RESP 18; TEMP 97.7; O2SAT 93
--- NOTE | 2016-11-09 08:01 | HHI.PR ---
Subjective Remarks Follow-up lung mass. Percutaneous lung biopsy too risky per IR. Objective Vitals Vital Signs Date Time Temp Pulse Resp B/P Pulse Ox O2 Delivery O2 Flow Rate FiO2 11/08/16 20:23 90 11/08/16 20:00 98.7 89 19 155/84 93 11/08/16 20:00 Nasal Cannula 3.00 11/08/16 16:00 97.6 79 20 145/84 95 11/08/16 12:00 97.8 109 17 139/78 98 11/08/16 11:00 95 Nasal Cannula 3.00 11/08/16 08:48 Nasal Cannula 2.00 21 I/O 11/08/16 11/08/16 11/08/16 11/09/16 11/09/16 11/09/16 07:00 15:00 23:00 07:00 15:00 23:00 Intake Total 240 ml 1000 ml 910 ml 240 ml Output Total 500 ml 650 ml Balance -260 ml 350 ml 910 ml 240 ml Intake Oral 240 ml 1000 ml 240 ml 240 ml IV Total 0 ml 0 ml 670 ml Output Urine Total 500 ml 650 ml # Voids 2 3 # Bowel Movements 0 1 0 0 Result Diagram: 11/09/160 11/09/16 0440 Objective Remarks GENERAL: Well-nourished, well-developed patient in no distress SKIN: Warm and dry. Abrasion dorsal right forearm. HEAD: Atraumatic. Normocephalic. EYES: Opacified left eye CARDIOVASCULAR: Regular rate and rhythm. RESPIRATORY: No wheezes. Urfdzx-o-Johg in place NEUROLOGICAL: Awake and alert. Motor grossly within normal limits. Normal speech. PSYCHIATRIC: Appropriate mood and affect; insight and judgment normal. 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 RR 30. Pneumonia suspected. Continue doxycycline end date November 14. Dc Rocephin Lung mass/pleural effusion: Chest x-ray personally reviewed with obvious right sided pleural effusion. CT of the chest was performed which reveals 4.3 x 7.1 x 8.2 cm mass, likely bronchogenic carcinoma with mediastinal and right hilar metastatic adenopathy; moderate pleural effusion with loculation laterally at the base. Patient is a smoker. Mild hyponatremia which could be associated with this. -Oncology consultation Dr Braxton following appreciate recommendations. Port placed likely start chemo soon. Consulted radiation oncology status post simulation -Pulmonology consultation. Dr. Calderón s/p bronchoscopy 11/02/16. Pathology favors squamous cell cancer. Oncology wants repeat biopsy for confirmation but IR states percutaneous biopsy too risky. We'll start concurrent chemotherapy and radiation outpatient Brain MRI and bone scan, no metastatic disease noted on the scan. CT abd/pel with solid mass right kidney COPD exacerbation/acute respiratory failure: O2 88% on RA. Mild leukocytosis. Imaging as above. Majority of symptoms are likely due to the lung mass and pleural, patient has wheezing on exam. ED note indicates patient's nebulizer machine was not working. -She received 1 dose of IV azithromycin, but due to methadone use will switch to doxycycline 100 mg po bid to November 14. Dr. Calderón also recommends Rocephin 2 g IV daily which patient has already completed -Duonebs q 4 with albuterol q 2 prn -Solumedrol IV switched to prednisone -Oxygen via NC Leukocytosis: WBC count increased likely due to steroid use. -Monitor CBC Hypertension: -PRN clonidine ordered SBP>180 -Improving continue Norvasc Methadone: Confirmed methadone dose with clinic. -Continue 160 mg daily Insomnia: As needed Restoril DVT prevention: SCDs, out of bed Discharge Planning Discharged when appointment with radiation oncology has been set up by case management Problem Qualifiers (1) Acute respiratory failure: Qualified Code: J96.01 - Acute respiratory failure with hypoxia Ld Ren MD Nov 09, 2016 08:01
[2016-11-09] MEDS: BUDESONIDE-FORMOTEROL 160/4.5 MCG INHALER INH SCH ×2 (08:50→20:30)
[2016-11-09] MEDS: amLODIPine BESYLATE 5 MG TAB PO SCH (08:50)
[2016-11-09] MEDS: predniSONE 10 MG TAB PO SCH (08:50)
[2016-11-09] MEDS: DOXYCYCLINE HYCLATE 100 MG TAB PO SCH ×2 (08:50→20:30)
--- NOTE | 2016-11-09 09:18 | PD.ONC.PN ---
Subjective Subjective Remarks Afebrile overnight. Patient resting comfortably without complaint. She slept well overnight. appetite okay. Objective Data Date Time Temp Pulse Resp B/P Pulse Ox O2 Delivery O2 Flow Rate FiO2 11/09/16 08:00 97.7 91 18 133/67 93 11/08/16 20:23 90 11/08/16 20:00 98.7 89 19 155/84 93 11/08/16 20:00 Nasal Cannula 3.00 11/08/16 16:00 97.6 79 20 145/84 95 11/08/16 12:00 97.8 109 17 139/78 98 11/08/16 11:00 95 Nasal Cannula 3.00 11/09/16 11/09/16 11/09/16 07:00 15:00 23:00 Intake Total 240 ml Balance 240 ml Result Diagram: 11/09/16 0440 11/09/16 0440 Laboratory Results Laboratory Tests Test 11/09/16 04:40 White Blood Count 15.2 TH/MM3 Red Blood Count 4.71 MIL/MM3 Hemoglobin 13.7 GM/DL Hematocrit 41.6 % Mean Corpuscular Volume 88.5 FL Mean Corpuscular Hemoglobin 29.1 PG Mean Corpuscular Hemoglobin 32.9 % Concent Red Cell Distribution Width 13.1 % Platelet Count 313 TH/MM3 Mean Platelet Volume 7.5 FL Neutrophils (%) (Auto) 80.1 % Lymphocytes (%) (Auto) 8.7 % Monocytes (%) (Auto) 9.2 % Eosinophils (%) (Auto) 1.8 % Basophils (%) (Auto) 0.2 % Neutrophils # (Auto) 12.2 TH/MM3 Lymphocytes # (Auto) 1.3 TH/MM3 Monocytes # (Auto) 1.4 TH/MM3 Eosinophils # (Auto) 0.3 TH/MM3 Basophils # (Auto) 0.0 TH/MM3 CBC Comment DIFF FINAL Differential Comment Sodium Level 132 MEQ/L Potassium Level 4.1 MEQ/L Chloride Level 92 MEQ/L Carbon Dioxide Level 36.1 MEQ/L Anion Gap 4 MEQ/L Blood Urea Nitrogen 15 MG/DL Creatinine 0.76 MG/DL Estimat Glomerular Filtration 77 ML/MIN Rate Random Glucose 90 MG/DL Calcium Level 8.9 MG/DL Total Bilirubin 0.6 MG/DL Aspartate Amino Transf 15 U/L (AST/SGOT) Alanine Aminotransferase 24 U/L (ALT/SGPT) Alkaline Phosphatase 55 U/L Total Protein 6.5 GM/DL Albumin 2.7 GM/DL Administered Medications Medications (Trade) Dose Ordered Sig/Félix Route PRN Reason Start Time Stop Time Status Last Admin Dose Admin Doxycycline Hyclate (Vibratab) 100 mg BID PO 10/31/16 09:00 11/14/16 08:59 11/09/16 08:50 Budesonide/ Formoterol Fumarate (Symbicort 160-4.5 Inh) 2 puff Q12HR INH 10/30/16 21:00 11/09/16 08:50 Acetaminophen (Tylenol) 650 mg Q4H PRN PO HEADACHE /FEVER 11/01/16 16:45 11/07/16 20:22 Methadone HCl (Dolophine) 160 mg DAILY@06 PO 11/03/16 06:00 11/09/16 05:14 Ondansetron HCl (Zofran Inj) 4 mg Q6H PRN IV PUSH NAUSEA 11/03/16 08:30 11/09/16 00:18 Enalaprilat (Vasotec Inj) 1.25 mg Q6H PRN IV SBP> OR = 180, DBP> OR = 100 11/03/16 14:15 11/04/16 00:46 Clonidine (Catapres) 0.1 mg Q6H PRN PO SBP> OR = 180, DBP> OR = 100 11/03/16 14:15 11/04/16 15:38 Promethazine HCl (Phenergan Inj) 12.5 mg Q6H PRN IM nausea 11/04/16 02:00 11/05/16 21:00 Amlodipine Besylate (Norvasc) 2.5 mg DAILY PO 11/04/16 09:00 11/09/16 08:50 Temazepam (Restoril) 7.5 mg HS PRN PO INSOMNIA 11/05/16 21:45 11/08/16 19:50 Prednisone (Deltasone) 10 mg DAILY PO 11/09/16 09:00 11/09/16 08:50 Objective Remarks GENERAL: Middle aged female, sitting up in bed in [employer]. SKIN: Warm and dry. HEAD: Normocephalic. EYES: No injection or drainage. NECK: Supple, trachea midline. CARDIOVASCULAR: Regular rate and rhythm RESPIRATORY: breath sounds diminished at RLL. anterior florez with occasional rhonchi. GASTROINTESTINAL: Abdomen soft, non-tender, nondistended. EXTREMITIES: No cyanosis. NEUROLOGICAL: No obvious focal deficit. Awake, alert, and oriented x3. Assessment/Plan Problem List: (1) Lung mass Status: Acute Plan: 11/09/16: per Henri Yu, a tissue biopsy would be very difficulty/ risky. will cancel tissue biopsy and proceed with treatment on basis of pathology. treatment can be started on an outpatient basis. awaiting radiation oncology to set up treatment in clinic. 11/08/16: Will speak with radiologist. Attempt to get a tissue biopsy of lung mass prior to initiating chemotherapy/radiation. 11/05/16: port placement today 11/04/16: pathology pending. plan to place port tomorrow. 11/03/16 Bronchoscopy showed a friable bleeding mass in RLL bronchus. It was actively bleeding. Cytology pending. 11/02/16: having bronch/biopsy at 11AM today -- Bronchoscopy washings on 11/03/16 came back + for malignant cells. Favoring squamous cell carcinoma. It would be ideal to confirm this by a tissue sample prior to initiating treatment. History/Workup --Lung mass with mediastinal adenopathy most consistent with primary bronchogenic carcinoma. --history of tobacco use and chronic obstructive pulmonary disease. --has had worsening shortness of breath and a nonproductive cough over the last six months. --developing right chest pain two weeks ago. --CT chest: large right hilar mass that extended to the infrahilar region causing collapse of the right lower lobe.4.3 x 7.0 x 8.2 cm. also a 2.8 cm subcarinal and 2.7 cm right suprahilar and 1.7 cm pretracheal adenopathy. --CT ab/pelvis: no mets disease. --bone scan: no mets --brain MRI: no mets --If her disease is localized to the thorax we could treat her with concurrent radiation and chemotherapy; however final treatment recommendations will depend on the tissue diagnosis Assessment 61y/o female with stage IIIa NSCLC h/o Chronic obstructive pulmonary disease. Hypertension. Cervical precancerous lesion. Seizure twice, the last was 5 years ago. 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 Plan 1. await start of XRT 2. once XRT starts. plan to start weekly carbo/taxol Attending Statement The exam, history, and the medical decision-making described in the above note were completed with the assistance of the mid-level provider. I reviewed and agree with the findings presented. I attest that I had a [id number] encounter with the patient on the same day, and personally performed and documented my assessment and findings in the medical record. No hemoptysis. SOB improved. Had XRT simulation. Plan to give weekly chemotx when she start XRT. Can be d/c once her f/u with med onc and rad onc are arranged. Kyra Pearce Nov 09, 2016 09:17 Harshil Braxton MD Nov 09, 2016 15:58
--- NOTE | 2016-11-09 10:16 | RSPPFT ---
DATE OF PROCEDURE: 10/31/16 COMMENTS: Spirometry demonstrates an FEV1 of 1.2 at 53% of predicted, FVC of 2.1 at 72%, FEV1/FVC ratio is 58%. The FEF 25-75 is 28% of predicted. Post-bronchodilator study demonstrated no significant change. Flow volume loops suggest an obstructive pattern. IMPRESSION: 1. Moderate obstructive disease. 2. No significant change following use of bronchodilator.
[2016-11-09 12:00] VITALS: BP 150/87; PULSE 93; RESP 19; TEMP 96; O2SAT 93
[2016-11-09 12:55] VITALS: O2SAT 94
[2016-11-09] MEDS ORDERED: AMLO5 PO (15:37)
[2016-11-09] MEDS ORDERED: DOXY100T PO (15:37)
[2016-11-09] MEDS ORDERED: PRED10 PO (15:37)
[2016-11-09] MEDS ORDERED: SYMB160A INH (15:37)
--- NOTE | 2016-11-09 15:37 | HHI.DCPOC ---
Discharge Care Plan Diagnosis: (1) Lung mass Your Health Problems Are: Difficulty with ADL Exercise Tolerance Goals to Promote Your Health * To prevent worsening of your condition and complications * To maintain your health at the optimal level Directions to Meet Your Goals Take your medications as prescribed Follow your dietary instruction Follow activity as directed Keep your appointments as scheduled Take your immunizations and boosters as scheduled If your symptoms worsen call your PCP, if no PCP go to Urgent Care Center or Emergency Room Smoking is Dangerous to Your Health. Avoid second hand smoke Call the 24-hour hour crisis hotline for domestic abuse at Ld Ren MD Nov 09, 2016 15:37
--- NOTE | 2016-11-09 15:38 | HHI.FF ---
Face to Face Verification Diagnosis: (1) Hypoxia (2) Lung mass (3) COPD exacerbation Home Health Nursing Order: Medical education Oxygen administration education Nursing assessment with vital signs Telehealth I have seen patient Suzanne Ford on 11/09/16. My clinical findings support the need for the requested home health care services because: Patient has SOB I certify that my clinical findings support that this patient is homebound because: Hx COPD- exertion dyspnea/weakness Need for psychosocial assistance Ld Ren MD Nov 09, 2016 15:38
[2016-11-09] MEDS ORDERED: OXYGENTANK NAS.CANULA (15:50)
[2016-11-09 15:56] VITALS: BP 157/87; PULSE 94; RESP 17; TEMP 98; O2SAT 95
[2016-11-09 20:00] VITALS: BP 135/95; PULSE 97; RESP 19; TEMP 98.1; O2SAT 92
[2016-11-09 20:01] VITALS: PULSE 92
--- NOTE | 2016-11-09 20:08 | HHI.PR ---
Subjective Remarks Improved. Has some cough and no hemoptysis. for radiation therapy Objective Vital Signs Date Time Temp Pulse Resp B/P Pulse Ox O2 Delivery O2 Flow Rate FiO2 11/09/16 16:25 2.00 11/09/16 15:56 98.0 94 17 157/87 95 11/09/16 12:55 94 Nasal Cannula 3.00 11/09/16 12:00 96.0 93 19 150/87 93 11/09/16 08:55 Nasal Cannula 3.00 21 11/09/16 08:00 97.7 91 18 133/67 93 11/08/16 20:23 90 I/O 11/08/16 11/08/16 11/08/16 11/09/16 11/09/16 11/09/16 07:00 15:00 23:00 07:00 15:00 23:00 Intake Total 240 ml 1000 ml 910 ml 240 ml 720 ml Output Total 500 ml 650 ml 500 ml Balance -260 ml 350 ml 910 ml 240 ml 220 ml Intake Oral 240 ml 1000 ml 240 ml 240 ml 720 ml IV Total 0 ml 0 ml 670 ml 0 ml Output Urine Total 500 ml 650 ml 500 ml # Voids 2 3 # Bowel Movements 0 1 0 0 0 Result Diagram: 11/09/1643911/09/160 Objective Remarks GENERAL: This is a middle-aged averagely built white female who is alert. HEENT: Head normocephalic. Pupils are reactive and equal. Tongue is clear Throat is clear. Nasal mucosa clear. NECK: Supple. No bruits, no thyroid enlargement or lymphadenopathy. CHEST: Equal movements with distant breath sounds with occ wheezes bilaterally. Breath sounds diminished over the right base. HEART: Heart sounds are irregular S1-S2. No murmur. No S3 gallop. ABDOMEN: Soft, benign. No masses, no organomegaly or tenderness. Bowel sounds are active. EXTREMITIES: No edema. No calf tenderness. NEUROLOGIC: Reflexes are 1 + with no gross motor deficits. . RECTAL: Exam is deferred. SKIN: No lesions observed. Assessment and Plan Assessment and Plan IMPRESSION 1. Right hilar mass with mediastinal adenopathy, rule out malignancy 2. COPD with chronic bronchitis and acute exacerbation 3. Probable right basilar pneumonia 4. Hypertension. 5. Ca Lung , Squamous cell. Plan : 1. Cont antibiotics PO 2. Oncology evaluation 3. Arrange home o2 at 2 l 4. Ambien 10mg HS prn. 5. Chest X ray in am 6. terence Nascimento. 7. Prednisone 10 mg daily X 7 days. Chaim Calderón MD Nov 09, 2016 20:08
[2016-11-09] MEDS: TEMAZEPAM 7.5 MG CAP PO PRN (20:29)
[2016-11-09] MEDS: ACETAMINOPHEN 325 MG TAB PO PRN (20:30)
[2016-11-09] MEDS: LACTATED RINGER'S 1000 ML IV SCH (20:30)
[2016-11-10] VITALS (7 sets, daily range): BP systolic 123–176; BP diastolic 63–96; PULSE 87–100; RESP 17–20; TEMP 96.2–98.3; O2SAT 92–95
[2016-11-10] MEDS: METHADONE HCL 10 MG TAB PO SCH (05:36)
[2016-11-10] MEDS: DOXYCYCLINE HYCLATE 100 MG TAB PO SCH ×2 (08:21→19:56)
[2016-11-10] MEDS: BUDESONIDE-FORMOTEROL 160/4.5 MCG INHALER INH SCH ×2 (08:22→19:56)
[2016-11-10] MEDS: predniSONE 10 MG TAB PO SCH (08:22)
[2016-11-10] MEDS: amLODIPine BESYLATE 5 MG TAB PO SCH (08:22)
[2016-11-10] MEDS: ONDANSETRON HCL 4 MG/2 ML VIAL IV PUSH PRN (14:14)
--- NOTE | 2016-11-10 14:39 | HHI.PR ---
Subjective Remarks Follow-up from lung mass. Awaiting initiation of radiation therapy. The patient is having some nausea currently, requesting antiemetic. The patient is upset that she can't get outpatient treatment arranged. Objective Vitals Vital Signs Date Time Temp Pulse Resp B/P Pulse Ox O2 Delivery O2 Flow Rate FiO2 11/10/16 12:58 94 Nasal Cannula 2.00 11/10/16 12:00 98.3 100 18 140/63 94 11/10/16 08:00 96.2 87 19 123/71 92 11/10/16 08:00 Nasal Cannula 3.00 21 11/09/16 20:01 92 11/09/16 20:00 98.1 97 19 135/95 92 11/09/16 19:00 Nasal Cannula 3.00 21 11/09/16 16:25 2.00 11/09/16 15:56 98.0 94 17 157/87 95 I/O 11/09/16 11/09/16 11/09/16 11/10/16 11/10/16 11/10/16 07:00 15:00 23:00 07:00 15:00 23:00 Intake Total 240 ml 720 ml 240 ml 360 ml Output Total 500 ml 400 ml Balance 240 ml 220 ml 240 ml -40 ml Intake Oral 240 ml 720 ml 240 ml 360 ml IV Total 0 ml 0 ml 0 ml Output Urine Total 500 ml 400 ml # Voids 3 1 # Bowel Movements 0 0 0 0 Result Diagram: 11/09/16 0440 11/09/16 0440 Imaging Last Impressions Port Line Insertion 11/05/16 0600 Signed Impressions: Service Date/Time: Saturday, November 05, 2016 10:55 - CONCLUSION: Uncomplicated ultrasound and fluoroscopic guided implanted central venous port catheter placement as described in detail above. An 8 [employer] port was placed. Stevie Yu MD Chest X-Ray 11/02/16 0000 Signed Impressions: Service Date/Time: Wednesday, November 02, 2016 13:04 - CONCLUSION: 1. No pneumothorax, status post bronchoscopy. Ramiro Neves MD Chest Ultrasound 11/02/16 0000 Signed Impressions: Service Date/Time: Wednesday, November 02, 2016 22:31 - CONCLUSION: Dense consolidation of the right lower lobe. No pleural fluid seen. Mirza Donnelly Jr., MD Brain MRI 11/01/16 0000 Signed Impressions: Service Date/Time: Tuesday, November 01, 2016 15:15 - CONCLUSION: 1. No metastatic disease or other acute intracranial abnormality. 2. Mild, chronic white matter changes. 3. Chronically deformed left globe. mOar Venegas MD Bone Scan Nuclear Medicine 11/01/16 0000 Signed Impressions: Service Date/Time: Tuesday, November 01, 2016 12:02 - CONCLUSION: No definite scintigraphic evidence of osseous metastatic disease. Anup Bowman MD Abdomen/Pelvis CT 11/01/16 0000 Signed Impressions: Service Date/Time: Wednesday, November 02, 2016 20:35 - CONCLUSION: Slightly greater than 4.5 cm solid mass involving the lower pole of the right kidney. No other evidence of neoplastic disease in the abdomen or pelvis. Omar Arnold MD Chest CT 10/30/16 0000 Signed Impressions: Service Date/Time: Sunday, October 30, 2016 16:20 - CONCLUSION: 1. Large right hilar/infrahilar mass compatible with a central primary bronchogenic carcinoma. 2. Mediastinal and right hilar metastatic adenopathy. 3. Hepatic cysts. No metastatic disease demonstrated in the visualized upper abdomen or of the visualized osseous structures. Omar Venegas MD ADDENDUM: A right chest ultrasound was done a couple hours after the CT showing densely consolidated right lung base without perceptible pleural fluid. The noncontrast CT clearly shows heterogeneous attenuation of the right base, and in conjunction with the ultrasound must represent different age or degree of parenchymal consolidation or a combination of atelectasis and pneumonia. Omar Venegas MD Objective Remarks GENERAL: Well-developed well-nourished. In no acute distress. SKIN: Warm and dry. No lesions noted. HEENT: Normocephalic. Left eye blindness. Mucous membranes pink and moist. CARDIOVASCULAR: Regular rate and rhythm. No murmur appreciated. RESPIRATORY: No accessory muscle use. Clear to auscultation. Breath sounds equal bilaterally. GASTROINTESTINAL: Abdomen soft, non-tender, nondistended. Bowel sounds x4. MUSCULOSKELETAL: No obvious deformities. No clubbing or cyanosis. No edema. NEUROLOGICAL: Awake and alert. No focal neurological deficits. Moves upper and lower extremities spontaneously. Normal speech. PSYCHIATRIC: Appropriate mood and affect; insight and judgment normal. 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 RR 30. Pneumonia suspected. Continue doxycycline end date November 14. DC'd Rocephin. Resolved. Lung mass/pleural effusion: Chest x-ray personally reviewed with obvious right sided pleural effusion. CT of the chest was performed which reveals 4.3 x 7.1 x 8.2 cm mass, likely bronchogenic carcinoma with mediastinal and right hilar metastatic adenopathy; moderate pleural effusion with loculation laterally at the base. Patient is a smoker. Mild hyponatremia which could be associated with this. -Oncology consulted, Dr Braxton following, appreciate recommendations. Port placed , chemo starting with XRT. Consulted radiation oncology status post simulation, awaiting start of XRT. -Pulmonology consultation. Dr. Calderón s/p bronchoscopy 11/02/16. Pathology favors squamous cell cancer. Oncology wants repeat biopsy for confirmation but IR states percutaneous biopsy too risky. Concurrent chemotherapy and radiation outpatient Brain MRI and bone scan, no metastatic disease noted on the scan. CT abd/pel with solid mass right kidney COPD exacerbation/acute respiratory failure: O2 88% on RA. Mild leukocytosis. Imaging as above. Majority of symptoms are likely due to the lung mass and pleural, patient has wheezing on exam. ED note indicates patient's nebulizer machine was not working. -She received 1 dose of IV azithromycin, but due to methadone use, switched to doxycycline 100 mg po bid until November 14. Dr. Calderón also recommends Rocephin 2 g IV daily which patient has already completed -Duonebs q 4 with albuterol q 2 prn -Solumedrol IV switched to prednisone -Oxygen via NC Leukocytosis: WBC count increased likely due to steroid use. -Monitor CBC and watch for fevers Hypertension: -PRN clonidine ordered SBP>180 -Improved continue Norvasc Methadone: Confirmed methadone dose with clinic. -Continue 160 mg daily Insomnia: As needed Restoril DVT prevention: SCDs, out of bed Written by Gee Massey, acting as scribe for Dr. Ren on 11/10/16 at 14:34. The documentation accurately reflects the work performed [id number] by me on at 1434 Discharge Planning Discharge planning when outpatient chemotherapy and radiation are arranged as well as home oxygen. No payor source Problem Qualifiers (1) Acute respiratory failure: Qualified Code: J96.01 - Acute respiratory failure with hypoxia Gee Massey Nov 10, 2016 14:39 Ld Ren MD Nov 10, 2016 18:11
--- NOTE | 2016-11-10 14:39 | PD.ONC.PN ---
Subjective Subjective Remarks No SOB on O2, no hemoptysis. No CP. Objective Data Date Time Temp Pulse Resp B/P Pulse Ox O2 Delivery O2 Flow Rate FiO2 11/10/16 12:58 94 Nasal Cannula 2.00 11/10/16 12:00 98.3 100 18 140/63 94 11/10/16 08:00 96.2 87 19 123/71 92 11/10/16 08:00 Nasal Cannula 3.00 21 11/09/16 20:01 92 11/09/16 20:00 98.1 97 19 135/95 92 11/09/16 19:00 Nasal Cannula 3.00 21 11/09/16 16:25 2.00 11/09/16 15:56 98.0 94 17 157/87 95 11/10/16 11/10/16 11/10/16 07:00 15:00 23:00 Intake Total 360 ml Output Total 400 ml Balance -40 ml Result Diagram: 11/09/16 0440 11/09/16 0440 Administered Medications Medications (Trade) Dose Ordered Sig/Félix Route PRN Reason Start Time Stop Time Status Last Admin Dose Admin Doxycycline Hyclate (Vibratab) 100 mg BID PO 10/31/16 09:00 11/14/16 08:59 11/10/16 08:21 Budesonide/ Formoterol Fumarate (Symbicort 160-4.5 Inh) 2 puff Q12HR INH 10/30/16 21:00 11/10/16 08:22 Acetaminophen (Tylenol) 650 mg Q4H PRN PO HEADACHE /FEVER 11/01/16 16:45 11/09/16 20:30 Methadone HCl (Dolophine) 160 mg DAILY@06 PO 11/03/16 06:00 11/10/16 05:36 Ondansetron HCl (Zofran Inj) 4 mg Q6H PRN IV PUSH NAUSEA 11/03/16 08:30 11/10/16 14:14 Enalaprilat (Vasotec Inj) 1.25 mg Q6H PRN IV SBP> OR = 180, DBP> OR = 100 11/03/16 14:15 11/04/16 00:46 Clonidine (Catapres) 0.1 mg Q6H PRN PO SBP> OR = 180, DBP> OR = 100 11/03/16 14:15 11/04/16 15:38 Promethazine HCl (Phenergan Inj) 12.5 mg Q6H PRN IM nausea 11/04/16 02:00 11/05/16 21:00 Amlodipine Besylate (Norvasc) 2.5 mg DAILY PO 11/04/16 09:00 11/10/16 08:22 Temazepam (Restoril) 7.5 mg HS PRN PO INSOMNIA 11/05/16 21:45 11/09/16 20:29 Prednisone (Deltasone) 10 mg DAILY PO 11/09/16 09:00 11/10/16 08:22 Objective Remarks GENERAL: Well-nourished, well-developed patient. SKIN: Warm and dry. HEAD: Normocephalic. EYES: No scleral icterus. No injection or drainage. left eye is blind. NECK: Supple, trachea midline. No JVD or lymphadenopathy. LYMPHATIC: No adenopathy. CARDIOVASCULAR: Regular rate and rhythm without murmurs. RESPIRATORY: Breath sounds equal bilaterally. No accessory muscle use. GASTROINTESTINAL: Abdomen soft, non-tender, nondistended. EXTREMITIES: No cyanosis, or edema. MUSCULOSKELETAL: Adequate muscle tone. NEUROLOGICAL: No obvious focal deficit. Awake, alert, and oriented x3. PSYCHIATRIC: Appropriate mood and affect; insight and judgment normal. Assessment/Plan Problem List: (1) Lung mass Status: Acute Plan: 11/10/16: no new pulmonary symptoms. Await radiation. Will give chemo once she starts XRT. This can be done as outpt. 11/09/16: per Henri Yu, a tissue biopsy would be very difficulty/risky. will cancel tissue biopsy and proceed with treatment on basis of pathology. treatment can be started on an outpatient basis. awaiting radiation oncology to set up treatment in clinic. 11/08/16: Will speak with radiologist. Attempt to get a tissue biopsy of lung mass prior to initiating chemotherapy/radiation. 11/05/16: port placement today 11/04/16: pathology pending. plan to place port tomorrow. 11/03/16 Bronchoscopy showed a friable bleeding mass in RLL bronchus. It was actively bleeding. Cytology pending. 11/02/16: having bronch/biopsy at 11AM today -- Bronchoscopy washings on 11/03/16 came back + for malignant cells. Favoring squamous cell carcinoma. It would be ideal to confirm this by a tissue sample prior to initiating treatment. History/Workup --Lung mass with mediastinal adenopathy most consistent with primary bronchogenic carcinoma. --history of tobacco use and chronic obstructive pulmonary disease. --has had worsening shortness of breath and a nonproductive cough over the last six months. --developing right chest pain two weeks ago. --CT chest: large right hilar mass that extended to the infrahilar region causing collapse of the right lower lobe.4.3 x 7.0 x 8.2 cm. also a 2.8 cm subcarinal and 2.7 cm right suprahilar and 1.7 cm pretracheal adenopathy. --CT ab/pelvis: no mets disease. --bone scan: no mets --brain MRI: no mets --If her disease is localized to the thorax we could treat her with concurrent radiation and chemotherapy; however final treatment recommendations will depend on the tissue diagnosis Assessment 61y/o female with stage IIIa NSCLC h/o Chronic obstructive pulmonary disease. Hypertension. Cervical precancerous lesion. Seizure twice, the last was 5 years ago. 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 Plan 1. await start of XRT 2. once XRT starts. Plan to start weekly carbo/taxol 3. CM is working on getting her outpt f/u with med onc and rad onc for treatment. Harshil Braxton MD Nov 10, 2016 14:39
--- NOTE | 2016-11-10 18:09 | HHI.PR ---
Subjective Remarks Improved. Has some cough and min hemoptysis. for radiation therapy soon, and chemo. Objective Vital Signs Date Time Temp Pulse Resp B/P Pulse Ox O2 Delivery O2 Flow Rate FiO2 11/10/16 16:00 97.9 89 17 176/96 94 11/10/16 12:58 94 Nasal Cannula 2.00 11/10/16 12:00 98.3 100 18 140/63 94 11/10/16 08:00 96.2 87 19 123/71 92 11/10/16 08:00 Nasal Cannula 3.00 21 11/09/16 20:01 92 11/09/16 20:00 98.1 97 19 135/95 92 11/09/16 19:00 Nasal Cannula 3.00 21 I/O 11/09/16 11/09/16 11/09/16 11/10/16 11/10/16 11/10/16 07:00 15:00 23:00 07:00 15:00 23:00 Intake Total 240 ml 720 ml 240 ml 360 ml 545 ml Output Total 500 ml 400 ml 450 ml Balance 240 ml 220 ml 240 ml -40 ml 95 ml Intake Oral 240 ml 720 ml 240 ml 360 ml 545 ml IV Total 0 ml 0 ml 0 ml Output Urine Total 500 ml 400 ml 450 ml # Voids 3 1 1 # Bowel Movements 0 0 0 0 0 Result Diagram: 11/09/1643911/09/16439 Objective Remarks GENERAL: This is a middle-aged averagely built white female who is alert. HEENT: Head normocephalic. Pupils are reactive and equal. Tongue is clear Throat is clear. Nasal mucosa clear. NECK: Supple. No bruits, no thyroid enlargement or lymphadenopathy. CHEST: Equal movements with distant breath sounds with occ right base crackles. Breath sounds diminished over the right base. HEART: Heart sounds are irregular S1-S2. No murmur. No S3 gallop. ABDOMEN: Soft, benign. No masses, no organomegaly or tenderness. Bowel sounds are active. EXTREMITIES: No edema. No calf tenderness. NEUROLOGIC: Reflexes are 1 + with no gross motor deficits. . RECTAL: Exam is deferred. SKIN: No lesions observed. Assessment and Plan Assessment and Plan IMPRESSION 1. Right hilar mass with mediastinal adenopathy, rule out malignancy 2. COPD with chronic bronchitis and acute exacerbation 3. Probable right basilar pneumonia 4. Hypertension. 5. Ca Lung , Squamous cell. Plan : 1. O2 2l 2. Oncology evaluation 3. Arrange home o2 at 2 l 4. Ambien 10mg HS prn. 5. IS qid bedside 6. Nebs qid , duoneb. 7. Prednisone 10 mg daily X 5 days. Chaim Calderón MD Nov 10, 2016 18:09
[2016-11-10] MEDS: ACETAMINOPHEN 325 MG TAB PO PRN (18:49)
[2016-11-10] MEDS: TEMAZEPAM 7.5 MG CAP PO PRN (19:58)
[2016-11-10] MEDS: LACTATED RINGER'S 1000 ML IV SCH (23:45)
[2016-11-11] VITALS: BP 144/88; PULSE 90; RESP 20; TEMP 97.4; O2SAT 95
[2016-11-11 04:00] VITALS: BP 141/86; PULSE 88; RESP 20; TEMP 98.2; O2SAT 96
[2016-11-11] MEDS: METHADONE HCL 10 MG TAB PO SCH (05:46)
--- NOTE | 2016-11-11 07:59 | PD.ONC.PN ---
Subjective Subjective Remarks +nonproductive cough. No hemoptysis. No CP. SOB stable on O2. Objective Data Date Time Temp Pulse Resp B/P Pulse Ox O2 Delivery O2 Flow Rate FiO2 11/11/16 06:46 18 11/11/16 04:00 98.2 88 20 141/86 96 11/11/16 00:00 97.4 90 20 144/88 95 11/10/16 21:15 95 Nasal Cannula 2.50 11/10/16 20:16 87 11/10/16 20:00 97.0 92 20 159/90 94 11/10/16 19:56 Nasal Cannula 2.00 21 11/10/16 19:49 18 11/10/16 16:00 97.9 89 17 176/96 94 11/10/16 12:58 94 Nasal Cannula 2.00 11/10/16 12:00 98.3 100 18 140/63 94 11/10/16 08:00 96.2 87 19 123/71 92 11/10/16 08:00 Nasal Cannula 3.00 21 11/11/16 11/11/16 11/11/16 07:00 15:00 23:00 Intake Total 440 ml Output Total 600 ml Balance -160 ml Result Diagram: 11/09/1643911/09/16 0440 Administered Medications Medications (Trade) Dose Ordered Sig/Félix Route PRN Reason Start Time Stop Time Status Last Admin Dose Admin Doxycycline Hyclate (Vibratab) 100 mg BID PO 10/31/16 09:00 11/14/16 08:59 11/10/16 19:56 Budesonide/ Formoterol Fumarate (Symbicort 160-4.5 Inh) 2 puff Q12HR INH 10/30/16 21:00 11/10/16 19:56 Acetaminophen (Tylenol) 650 mg Q4H PRN PO HEADACHE /FEVER 11/01/16 16:45 11/10/16 18:49 Methadone HCl (Dolophine) 160 mg DAILY@06 PO 11/03/16 06:00 11/11/16 05:46 Ondansetron HCl (Zofran Inj) 4 mg Q6H PRN IV PUSH NAUSEA 11/03/16 08:30 11/10/16 14:14 Enalaprilat (Vasotec Inj) 1.25 mg Q6H PRN IV SBP> OR = 180, DBP> OR = 100 11/03/16 14:15 11/04/16 00:46 Clonidine (Catapres) 0.1 mg Q6H PRN PO SBP> OR = 180, DBP> OR = 100 11/03/16 14:15 11/04/16 15:38 Promethazine HCl (Phenergan Inj) 12.5 mg Q6H PRN IM nausea 11/04/16 02:00 11/05/16 21:00 Amlodipine Besylate (Norvasc) 2.5 mg DAILY PO 11/04/16 09:00 11/10/16 08:22 Temazepam (Restoril) 7.5 mg HS PRN PO INSOMNIA 11/05/16 21:45 11/10/16 19:58 Prednisone (Deltasone) 10 mg DAILY PO 11/09/16 09:00 11/10/16 08:22 Objective Remarks GENERAL: Well-nourished, well-developed patient. SKIN: Warm and dry. Port site no erythema HEAD: Normocephalic. EYES: No scleral icterus. No injection or drainage. Left eye blindness. NECK: Supple, trachea midline. No JVD or lymphadenopathy. LYMPHATIC: No adenopathy. CARDIOVASCULAR: Regular rate and rhythm without murmurs. RESPIRATORY: Breath sounds equal bilaterally. No accessory muscle use. GASTROINTESTINAL: Abdomen soft, non-tender, nondistended. EXTREMITIES: No cyanosis, or edema. MUSCULOSKELETAL: Adequate muscle tone. NEUROLOGICAL: No obvious focal deficit. Awake, alert, and oriented x3. PSYCHIATRIC: Appropriate mood and affect; insight and judgment normal. Assessment/Plan Problem List: (1) Lung mass Status: Acute Plan: 11/11/16: no new pulmonary symptoms. Await radiation. Plan to give chemo once she starts XRT. This can be done as outpt. 11/09/16: per Henri Yu, a tissue biopsy would be very difficulty/risky. will cancel tissue biopsy and proceed with treatment on basis of pathology. treatment can be started on an outpatient basis. awaiting radiation oncology to set up treatment in clinic. 11/08/16: Will speak with radiologist. Attempt to get a tissue biopsy of lung mass prior to initiating chemotherapy/radiation. 11/05/16: port placement today 11/04/16: pathology pending. plan to place port tomorrow. 11/03/16 Bronchoscopy showed a friable bleeding mass in RLL bronchus. It was actively bleeding. Cytology pending. 11/02/16: having bronch/biopsy at 11AM today -- Bronchoscopy washings on 11/03/16 came back + for malignant cells. Favoring squamous cell carcinoma. It would be ideal to confirm this by a tissue sample prior to initiating treatment. History/Workup --Lung mass with mediastinal adenopathy most consistent with primary bronchogenic carcinoma. --history of tobacco use and chronic obstructive pulmonary disease. --has had worsening shortness of breath and a nonproductive cough over the last six months. --developing right chest pain two weeks ago. --CT chest: large right hilar mass that extended to the infrahilar region causing collapse of the right lower lobe.4.3 x 7.0 x 8.2 cm. also a 2.8 cm subcarinal and 2.7 cm right suprahilar and 1.7 cm pretracheal adenopathy. --CT ab/pelvis: no mets disease. --bone scan: no mets --brain MRI: no mets --If her disease is localized to the thorax we could treat her with concurrent radiation and chemotherapy; however final treatment recommendations will depend on the tissue diagnosis Assessment 61y/o female with stage IIIa NSCLC h/o Chronic obstructive pulmonary disease. Hypertension. Cervical precancerous lesion. Seizure twice, the last was 5 years ago. 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 Plan 1. await start of XRT 2. Plan to start weekly carbo/taxol when she starts XRT. 3. SANJAY is working on getting her outpt f/u with med onc and rad onc for treatment. Harshil Braxton MD Nov 11, 2016 07:59
[2016-11-11 08:00] VITALS: BP 134/89; PULSE 85; RESP 18; TEMP 96.1; O2SAT 94
[2016-11-11] MEDS: amLODIPine BESYLATE 5 MG TAB PO SCH (08:23)
[2016-11-11] MEDS: BUDESONIDE-FORMOTEROL 160/4.5 MCG INHALER INH SCH ×2 (08:23→19:44)
[2016-11-11] MEDS: DOXYCYCLINE HYCLATE 100 MG TAB PO SCH ×2 (08:23→19:43)
[2016-11-11] MEDS: predniSONE 10 MG TAB PO SCH (08:23)
--- NOTE | 2016-11-11 13:36 | HHI.PR ---
Subjective Remarks Follow-up for lung mass. Patient denies any shortness of breath. Mild cough at baseline, unchanged. She states that she received her first radiation treatment this morning. Discussed with case management, unsure if outpatient radiation therapy is arranged. Case management is arranging O2, requests repeat walk test. Objective Vitals Vital Signs Date Time Temp Pulse Resp B/P Pulse Ox O2 Delivery O2 Flow Rate FiO2 11/11/16 08:40 Nasal Cannula 2.00 11/11/16 08:00 96.1 85 18 134/89 94 11/11/16 06:46 18 11/11/16 04:00 98.2 88 20 141/86 96 11/11/16 00:00 97.4 90 20 144/88 95 11/10/16 21:15 95 Nasal Cannula 2.50 11/10/16 20:16 87 11/10/16 20:00 97.0 92 20 159/90 94 11/10/16 19:56 Nasal Cannula 2.00 21 11/10/16 19:49 18 11/10/16 16:00 97.9 89 17 176/96 94 I/O 11/10/16 11/10/16 11/10/16 11/11/16 11/11/16 11/11/16 06:59 14:59 22:59 06:59 14:59 22:59 Intake Total 360 ml 545 ml 440 ml 440 ml Output Total 400 ml 450 ml 600 ml 600 ml Balance -40 ml 95 ml -160 ml -160 ml Intake Oral 360 ml 545 ml 440 ml 440 ml IV Total 0 ml Output Urine Total 400 ml 450 ml 600 ml 600 ml # Voids 1 # Bowel Movements 0 0 0 0 Result Diagram: 11/09/160 11/09/16 0440 Imaging Last Impressions Port Line Insertion 11/05/16 0600 Signed Impressions: Service Date/Time: Saturday, November 05, 2016 10:55 - CONCLUSION: Uncomplicated ultrasound and fluoroscopic guided implanted central venous port catheter placement as described in detail above. An 8 [employer] port was placed. Stevie Yu MD Chest X-Ray 11/02/16 0000 Signed Impressions: Service Date/Time: Wednesday, November 02, 2016 13:04 - CONCLUSION: 1. No pneumothorax, status post bronchoscopy. Ramiro Neves MD Chest Ultrasound 11/02/16 0000 Signed Impressions: Service Date/Time: Wednesday, November 02, 2016 22:31 - CONCLUSION: Dense consolidation of the right lower lobe. No pleural fluid seen. Mirza Donnelly Jr., MD Brain MRI 11/01/16 0000 Signed Impressions: Service Date/Time: Tuesday, November 01, 2016 15:15 - CONCLUSION: 1. No metastatic disease or other acute intracranial abnormality. 2. Mild, chronic white matter changes. 3. Chronically deformed left globe. Omar Venegas MD Bone Scan Nuclear Medicine 11/01/16 0000 Signed Impressions: Service Date/Time: Tuesday, November 01, 2016 12:02 - CONCLUSION: No definite scintigraphic evidence of osseous metastatic disease. Anup Bowman MD Abdomen/Pelvis CT 11/01/16 Signed Impressions: Service Date/Time: Wednesday, November 02, 2016 20:35 - CONCLUSION: Slightly greater than 4.5 cm solid mass involving the lower pole of the right kidney. No other evidence of neoplastic disease in the abdomen or pelvis. Omar Arnold MD Chest CT 10/30/16 0000 Signed Impressions: Service Date/Time: Sunday, October 30, 2016 16:20 - CONCLUSION: 1. Large right hilar/infrahilar mass compatible with a central primary bronchogenic carcinoma. 2. Mediastinal and right hilar metastatic adenopathy. 3. Hepatic cysts. No metastatic disease demonstrated in the visualized upper abdomen or of the visualized osseous structures. Omar Venegas MD ADDENDUM: A right chest ultrasound was done a couple hours after the CT showing densely consolidated right lung base without perceptible pleural fluid. The noncontrast CT clearly shows heterogeneous attenuation of the right base, and in conjunction with the ultrasound must represent different age or degree of parenchymal consolidation or a combination of atelectasis and pneumonia. Omar Venegas MD Objective Remarks GENERAL: Well-developed well-nourished. In no acute distress. SKIN: Warm and dry. No lesions noted. HEENT: Normocephalic. Left eye blindness. Mucous membranes pink and moist. CARDIOVASCULAR: Regular rate and rhythm. No murmur appreciated. RESPIRATORY: No accessory muscle use. Clear to auscultation. Breath sounds equal bilaterally. GASTROINTESTINAL: Abdomen soft, non-tender, nondistended. Bowel sounds x4. MUSCULOSKELETAL: No obvious deformities. No clubbing or cyanosis. No edema. NEUROLOGICAL: Awake and alert. No focal neurological deficits. Moves upper and lower extremities spontaneously. Normal speech. PSYCHIATRIC: Appropriate mood and affect; insight and judgment normal. 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 RR 30. Pneumonia suspected. Continue doxycycline end date November 14. MINISTERIO'stefany Rocephin. Resolved. Lung mass/pleural effusion: Chest x-ray personally reviewed with obvious right sided pleural effusion. CT of the chest was performed which reveals 4.3 x 7.1 x 8.2 cm mass, likely bronchogenic carcinoma with mediastinal and right hilar metastatic adenopathy; moderate pleural effusion with loculation laterally at the base. Patient is a smoker. Mild hyponatremia which could be associated with this. Brain MRI and bone scan, no metastatic disease noted on the scan. CT abd/pel with solid mass right kidney -Oncology consulted, Dr Braxton following, appreciate recommendations. Port placed , [facility] planning for chemo starting after XRT. Consulted radiation oncology status post simulation, started XRT 11/11. -Pulmonology consultation. Dr. Calderón s/p bronchoscopy 11/02/16. Pathology favors squamous cell cancer. Oncology wants repeat biopsy for confirmation but IR states percutaneous biopsy too risky. We'll start concurrent chemotherapy and radiation outpatient COPD exacerbation/acute respiratory failure: O2 88% on RA. Mild leukocytosis. Imaging as above. Majority of symptoms are likely due to the lung mass and pleural, patient has wheezing on exam. ED note indicates patient's nebulizer machine was not working. -She received 1 dose of IV azithromycin, but due to methadone use, switched to doxycycline 100 mg po bid until November 14. Dr. Calderón also recommends Rocephin 2 g IV daily which patient has already completed -Duonebs q 4 with albuterol q 2 prn -Solumedrol IV switched to prednisone -Oxygen as needed, may need home O2, previous walk test 11/09 reviewed, repeat walk test 11/12 Leukocytosis: WBC count increased likely due to steroid use. -Monitor CBC and watch for fevers Hypertension: -PRN clonidine ordered SBP>180 -Improved continue Norvasc Methadone: Confirmed methadone dose with clinic. -Continue 160 mg daily Insomnia: As needed Restoril DVT prevention: SCDs, out of bed Discharge Planning Discharge planning when outpatient chemotherapy and radiation are arranged. Follow-up home oxygen demands and arrange if needed. Attending Statement The exam, history, and the medical decision-making described in the above note were completed with the assistance of the mid-level provider. I reviewed and agree with the findings presented. I attest that I had a [id number] encounter with the patient on the same day, and personally performed and documented my assessment and findings in the medical record. Problem Qualifiers (1) Acute respiratory failure: Qualified Code: J96.01 - Acute respiratory failure with hypoxia Gee Massey Nov 11, 2016 13:36 Conrado Wang MD Nov 12, 2016 19:19
[2016-11-11] MEDS: ONDANSETRON HCL 4 MG/2 ML VIAL IV PUSH PRN (14:23)
[2016-11-11 15:00] VITALS: BP 136/87; PULSE 86; RESP 17; TEMP 97.6; O2SAT 96
[2016-11-11] MEDS: ACETAMINOPHEN 325 MG TAB PO PRN (16:33)
[2016-11-11 19:30] VITALS: PULSE 99
[2016-11-11] MEDS: TEMAZEPAM 7.5 MG CAP PO PRN (19:44)
--- NOTE | 2016-11-11 19:55 | HHI.PR ---
Subjective Remarks Improved.Started XRT today. Has some cough and no hemoptysis. for chemo.this week Objective Vital Signs Date Time Temp Pulse Resp B/P Pulse Ox O2 Delivery O2 Flow Rate FiO2 11/11/16 18:26 Nasal Cannula 2.50 11/11/16 15:00 97.6 86 17 136/87 96 11/11/16 08:40 Nasal Cannula 2.00 11/11/16 08:00 96.1 85 18 134/89 94 11/11/16 06:46 18 11/11/16 04:00 98.2 88 20 141/86 96 11/11/16 00:00 97.4 90 20 144/88 95 11/10/16 21:15 95 Nasal Cannula 2.50 11/10/16 20:16 87 11/10/16 20:00 97.0 92 20 159/90 94 11/10/16 19:56 Nasal Cannula 2.00 21 I/O 11/10/16 11/10/16 11/10/16 11/11/16 11/11/16 11/11/16 07:00 15:00 23:00 07:00 15:00 23:00 Intake Total 360 ml 545 ml 440 ml 440 ml 280 ml Output Total 400 ml 450 ml 600 ml 600 ml 600 ml Balance -40 ml 95 ml -160 ml -160 ml -320 ml Intake Oral 360 ml 545 ml 440 ml 440 ml 280 ml IV Total 0 ml Output Urine Total 400 ml 450 ml 600 ml 600 ml 600 ml # Voids 1 # Bowel Movements 0 0 0 0 0 Result Diagram: 11/09/1643911/09/16439 Objective Remarks GENERAL: This is a middle-aged averagely built white female who is alert. HEENT: Head normocephalic. Pupils are reactive and equal. Throat is clear. Nasal mucosa clear. NECK: Supple. No bruits, no thyroid enlargement or lymphadenopathy. CHEST: Equal movements with distant breath sounds with occ right base crackles. Breath sounds diminished over the right base. HEART: Heart sounds are irregular S1-S2. No murmur. No S3 gallop. ABDOMEN: Soft, benign. No masses, no organomegaly or tenderness. Bowel sounds are active. EXTREMITIES: mild edema. No calf tenderness. NEUROLOGIC: Reflexes are 1 + with no gross motor deficits. . RECTAL: Exam is deferred. SKIN: No lesions observed. Assessment and Plan Assessment and Plan IMPRESSION 1. Right hilar mass with mediastinal adenopathy, rule out malignancy 2. COPD with chronic bronchitis and acute exacerbation 3. Probable right basilar pneumonia 4. Hypertension. 5. Ca Lung , Squamous cell. Plan : 1. O2 2l N/C 2. Radiation therapy as planned 3. Arrange home o2 at 2 l 4. Ambien 10mg HS prn. 5. IS qid bedside 6. Nebs qid , duoneb. 7. Prednisone 10 mg daily Chaim Calderón MD Nov 11, 2016 19:55
[2016-11-11 20:00] VITALS: BP 120/68; PULSE 90; RESP 20; TEMP 97.4; O2SAT 95
[2016-11-11] MEDS: LACTATED RINGER'S 1000 ML IV SCH (23:45)
[2016-11-12] VITALS (8 sets, daily range): BP systolic 103–127; BP diastolic 57–90; PULSE 75–98; RESP 17–20; TEMP 96.5–99.5; O2SAT 91–96
[2016-11-12] MEDS: METHADONE HCL 10 MG TAB PO SCH (05:53)
[2016-11-12] MEDS: amLODIPine BESYLATE 5 MG TAB PO SCH (08:06)
[2016-11-12] MEDS: DOXYCYCLINE HYCLATE 100 MG TAB PO SCH ×2 (08:06→21:46)
[2016-11-12] MEDS: predniSONE 10 MG TAB PO SCH (08:07)
[2016-11-12] MEDS: BUDESONIDE-FORMOTEROL 160/4.5 MCG INHALER INH SCH ×2 (08:07→21:46)
[2016-11-12] MEDS: ONDANSETRON HCL 4 MG/2 ML VIAL IV PUSH PRN ×2 (08:39→15:18)
--- NOTE | 2016-11-12 10:11 | PD.ONC.PN ---
Subjective Subjective Remarks Afebrile overnight. Patient had some nausea and vomiting this AM. She feels a little better now with the zofran she just received. No abdominal pain. Tolerated radiation yesterday. Objective Data Date Time Temp Pulse Resp B/P Pulse Ox O2 Delivery O2 Flow Rate FiO2 11/12/16 08:00 98.0 87 18 127/90 94 11/12/16 06:53 18 11/12/16 05:35 97.4 80 20 120/72 96 11/12/16 00:00 97.6 84 18 118/72 96 Manual Cuff/Auscultation 11/11/16 20:00 97.4 90 20 120/68 95 Manual Cuff/Auscultation 11/11/16 19:45 Nasal Cannula 2.00 21 11/11/16 19:30 99 11/11/16 18:26 Nasal Cannula 2.50 11/11/16 15:00 97.6 86 17 136/87 96 11/12/16 11/12/16 11/12/16 07:00 15:00 23:00 Intake Total 480 ml Output Total 600 ml Balance -120 ml Result Diagram: 11/09/1643911/09/16 0440 Administered Medications Medications (Trade) Dose Ordered Sig/Félix Route PRN Reason Start Time Stop Time Status Last Admin Dose Admin Doxycycline Hyclate (Vibratab) 100 mg BID PO 10/31/16 09:00 11/14/16 08:59 11/12/16 08:06 Budesonide/ Formoterol Fumarate (Symbicort 160-4.5 Inh) 2 puff Q12HR INH 10/30/16 21:00 11/12/16 08:07 Acetaminophen (Tylenol) 650 mg Q4H PRN PO HEADACHE /FEVER 11/01/16 16:45 11/11/16 16:33 Methadone HCl (Dolophine) 160 mg DAILY@06 PO 11/03/16 06:00 11/12/16 05:53 Ondansetron HCl (Zofran Inj) 4 mg Q6H PRN IV PUSH NAUSEA 11/03/16 08:30 11/12/16 08:39 Enalaprilat (Vasotec Inj) 1.25 mg Q6H PRN IV SBP> OR = 180, DBP> OR = 100 11/03/16 14:15 11/04/16 00:46 Clonidine (Catapres) 0.1 mg Q6H PRN PO SBP> OR = 180, DBP> OR = 100 11/03/16 14:15 11/04/16 15:38 Promethazine HCl (Phenergan Inj) 12.5 mg Q6H PRN IM nausea 11/04/16 02:00 11/05/16 21:00 Amlodipine Besylate (Norvasc) 2.5 mg DAILY PO 11/04/16 09:00 11/12/16 08:06 Temazepam (Restoril) 7.5 mg HS PRN PO INSOMNIA 11/05/16 21:45 11/11/16 19:44 Prednisone (Deltasone) 10 mg DAILY PO 11/09/16 09:00 11/12/16 08:07 Objective Remarks GENERAL: Middle aged female, sitting up in bed, appears nauseated. Emesis bag on lap. SKIN: Warm and dry. HEAD: Normocephalic. EYES: No injection or drainage. NECK: Supple, trachea midline. CARDIOVASCULAR: Regular rate and rhythm RESPIRATORY: diminished at right lower lobe. occasional rhonchi. GASTROINTESTINAL: Abdomen soft, non-tender, nondistended. EXTREMITIES: No cyanosis. NEUROLOGICAL: awake and alert, normal speech. no obvious deficit. Assessment/Plan Problem List: (1) Lung mass Status: Acute Plan: 11/12/16: XRT started yesterday. Plan to start chemo Tuesday if patient still inpatient. (could be done outpatient if case management can arrange safe discharge) 11/11/16: no new pulmonary symptoms. Await radiation. Plan to give chemo once she starts XRT. This can be done as outpt. 11/09/16: per Henri Yu, a tissue biopsy would be very difficulty/risky. will cancel tissue biopsy and proceed with treatment on basis of pathology. treatment can be started on an outpatient basis. awaiting radiation oncology to set up treatment in clinic. 11/08/16: Will speak with radiologist. Attempt to get a tissue biopsy of lung mass prior to initiating chemotherapy/radiation. 11/05/16: port placement today 11/04/16: pathology pending. plan to place port tomorrow. 11/03/16 Bronchoscopy showed a friable bleeding mass in RLL bronchus. It was actively bleeding. Cytology pending. 11/02/16: having bronch/biopsy at 11AM today -- Bronchoscopy washings on 11/03/16 came back + for malignant cells. Favoring squamous cell carcinoma. It would be ideal to confirm this by a tissue sample prior to initiating treatment. History/Workup --Lung mass with mediastinal adenopathy most consistent with primary bronchogenic carcinoma. --history of tobacco use and chronic obstructive pulmonary disease. --has had worsening shortness of breath and a nonproductive cough over the last six months. --developing right chest pain two weeks ago. --CT chest: large right hilar mass that extended to the infrahilar region causing collapse of the right lower lobe.4.3 x 7.0 x 8.2 cm. also a 2.8 cm subcarinal and 2.7 cm right suprahilar and 1.7 cm pretracheal adenopathy. --CT ab/pelvis: no mets disease. --bone scan: no mets --brain MRI: no mets --If her disease is localized to the thorax we could treat her with concurrent radiation and chemotherapy; however final treatment recommendations will depend on the tissue diagnosis Assessment 61y/o female with stage IIIa NSCLC h/o Chronic obstructive pulmonary disease. Hypertension. Cervical precancerous lesion. Seizure twice, the last was 5 years ago. 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 Plan 1. transfer to 2. chemotherapy Tuesday 3. continue XRT today. Attending Statement The exam, history, and the medical decision-making described in the above note were completed with the assistance of the mid-level provider. I reviewed and agree with the findings presented. I attest that I had a [id number] encounter with the patient on the same day, and personally performed and documented my assessment and findings in the medical record.Has more cough but no hemoptysis. Started on XRT 11/11. Plan to give her chemo next Tuesday. Kyra Pearce Nov 12, 2016 10:11 Harshil Braxton MD Nov 12, 2016 17:19
--- NOTE | 2016-11-12 17:10 | HHI.PR ---
Subjective Remarks Follow up for lung mass. The patient is seen sitting upright in bed, overall feels well. Denies any shortness of breath while at rest, does notice some dyspnea with exertion. O2 sat currently 92% on 2L NC. Patient denies chest pains. Does reports a nonproductive cough, denies any hemoptysis. Denies fevers/ chills. Had radiation yesterday, tolerated well. Still unable to arrange home oxygen. Objective Vitals Vital Signs Date Time Temp Pulse Resp B/P Pulse Ox O2 Delivery O2 Flow Rate FiO2 11/12/16 16:00 96.5 85 18 110/72 92 11/12/16 12:30 96.7 98 20 106/67 91 11/12/16 12:00 96.8 75 17 103/57 96 11/12/16 08:15 94 Nasal Cannula 2.00 21 11/12/16 08:00 98.0 87 18 127/90 94 11/12/16 06:53 18 11/12/16 05:35 97.4 80 20 120/72 96 11/12/16 00:00 97.6 84 18 118/72 96 Manual Cuff/Auscultation 11/11/16 20:00 97.4 90 20 120/68 95 Manual Cuff/Auscultation 11/11/16 19:45 Nasal Cannula 2.00 21 11/11/16 19:30 99 11/11/16 18:26 Nasal Cannula 2.50 I/O 11/11/16 11/11/16 11/11/16 11/12/16 11/12/16 11/12/16 07:00 15:00 23:00 07:00 15:00 23:00 Intake Total 440 ml 280 ml 460 ml 480 ml 600 ml Output Total 600 ml 600 ml 650 ml 600 ml 700 ml Balance -160 ml -320 ml -190 ml -120 ml -100 ml Intake Oral 440 ml 280 ml 460 ml 480 ml 600 ml Output Urine Total 600 ml 600 ml 650 ml 600 ml 700 ml # Voids 1 # Bowel Movements 0 0 0 0 1 Result Diagram: 11/09/1643911/09/16439 Imaging Last Impressions Port Line Insertion 11/05/16 0600 Signed Impressions: Service Date/Time: Saturday, November 05, 2016 10:55 - CONCLUSION: Uncomplicated ultrasound and fluoroscopic guided implanted central venous port catheter placement as described in detail above. An 8 [employer] Power port was placed. Stevie Yu MD Chest X-Ray 11/02/16 0000 Signed Impressions: Service Date/Time: Wednesday, November 02, 2016 13:04 - CONCLUSION: 1. No pneumothorax, status post bronchoscopy. Ramiro Neves MD Chest Ultrasound 11/02/16 0000 Signed Impressions: Service Date/Time: Wednesday, November 02, 2016 22:31 - CONCLUSION: Dense consolidation of the right lower lobe. No pleural fluid seen. Mirza Donnelly Jr., MD Brain MRI 11/01/16 0000 Signed Impressions: Service Date/Time: Tuesday, November 01, 2016 15:15 - CONCLUSION: 1. No metastatic disease or other acute intracranial abnormality. 2. Mild, chronic white matter changes. 3. Chronically deformed left globe. Omar Venegas MD Bone Scan Nuclear Medicine 11/01/16 0000 Signed Impressions: Service Date/Time: Tuesday, November 01, 2016 12:02 - CONCLUSION: No definite scintigraphic evidence of osseous metastatic disease. Anup Bowman MD Abdomen/Pelvis CT 11/01/16 0000 Signed Impressions: Service Date/Time: Wednesday, November 02, 2016 20:35 - CONCLUSION: Slightly greater than 4.5 cm solid mass involving the lower pole of the right kidney. No other evidence of neoplastic disease in the abdomen or pelvis. Omar Arnold MD Chest CT 10/30/16 0000 Signed Impressions: Service Date/Time: Sunday, October 30, 2016 16:20 - CONCLUSION: 1. Large right hilar/infrahilar mass compatible with a central primary bronchogenic carcinoma. 2. Mediastinal and right hilar metastatic adenopathy. 3. Hepatic cysts. No metastatic disease demonstrated in the visualized upper abdomen or of the visualized osseous structures. Omar Venegas MD ADDENDUM: A right chest ultrasound was done a couple hours after the CT showing densely consolidated right lung base without perceptible pleural fluid. The noncontrast CT clearly shows heterogeneous attenuation of the right base, and in conjunction with the ultrasound must represent different age or degree of parenchymal consolidation or a combination of atelectasis and pneumonia. Omar Venegas MD Objective Remarks GENERAL: Well-nourished, well-developed pleasant middle aged female patient in NAD. SKIN: Warm and dry. No rash. HEAD: Normocephalic. Atraumatic. EYES: Blind left eye. No scleral icterus. No injection or drainage. ENT: No nasal bleeding or discharge. Mucous membranes pink and moist. NECK: Supple. Trachea midline. CARDIOVASCULAR: Regular rate and rhythm. S1, S2 noted. No murmur appreciated. RESPIRATORY: No accessory muscle use. Mild scattered inspiratory rhonchi at left lobe, right lung clear. Breath sounds equal bilaterally. GASTROINTESTINAL: Abdomen soft, non-tender, nondistended. Normoactive bowel sounds x4. MUSCULOSKELETAL: No obvious deformities. Extremities without clubbing, cyanosis , or edema. NEUROLOGICAL: Awake and alert. No obvious cranial nerve deficits. Motor grossly within normal limits. Normal speech. PSYCHIATRIC: Appropriate mood and affect; insight and judgment normal. Procedures Bronchoscopy, port placement Medications and IVs Current Medications Medications (Trade) Dose Ordered Sig/Félix Route Start Time Stop Time Status Last Admin (Vibratab) 100 mg BID PO 10/31/16 09:00 11/14/16 08:59 11/12/16 08:06 Budesonide/ Formoterol Fumarate 2 puff 2 puff Q12HR INH 10/30/16 21:00 11/12/16 08:07 (Lr 1000 ml Inj) 1,000 ml @ 30 mls/hr Q24H IV 10/31/16 23:45 (Tylenol) 650 mg Q4H PRN PO 11/01/16 16:45 11/11/16 16:33 (Dolophine) 160 mg DAILY@06 PO 11/03/16 06:00 11/12/16 05:53 (Zofran Inj) 4 mg Q6H PRN IV PUSH 11/03/16 08:30 11/12/16 15:18 (Vasotec Inj) 1.25 mg Q6H PRN IV 11/03/16 14:15 11/04/16 00:46 (Catapres) 0.1 mg Q6H PRN PO 11/03/16 14:15 11/04/16 15:38 (Phenergan Inj) 12.5 mg Q6H PRN IM 11/04/16 02:00 11/05/16 21:00 (Norvasc) 2.5 mg DAILY PO 11/04/16 09:00 11/12/16 08:06 (Heparin Central Flush) 500 units UNSCH IVF 11/05/16 11:45 (NS Flush) 5 ml UNSCH PRN IVF 11/05/16 11:45 (Heparin Central Flush) 250 units UNSCH PRN IVF 11/05/16 11:45 (Restoril) 7.5 mg HS PRN PO 11/05/16 21:45 11/11/16 19:44 (Deltasone) 10 mg DAILY PO 11/09/16 09:00 11/12/16 08:07 A/P Problem List: (1) SIRS (systemic inflammatory response syndrome) ICD Code: R65.10 Status: Acute (2) Lung mass ICD Code: R91.8 Status: Acute (3) Pleural effusion ICD Code: J90 Status: Acute (4) Acute respiratory failure ICD Code: J96.00 Status: Acute (5) COPD exacerbation ICD Code: J44.1 Status: Acute (6) 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 RR 30. Pneumonia suspected. Continue doxycycline end date November 14. DC'd Rocephin. Sepsis Resolved. Lung mass/pleural effusion with new diagnosis of NSCLC: CXR reviewed by me, right sided pleural effusion. CT chest reveals 4.3 x 7.1 x 8.2 cm mass, likely bronchogenic carcinoma with mediastinal and right hilar metastatic adenopathy; moderate pleural effusion with loculation laterally at the base. Patient is a smoker. Mild hyponatremia could be associated with this. -Brain MRI and bone scan, no metastatic disease noted on the scan. -CT abd/pel with solid mass right kidney -Pulmonology consultation. Dr. Calderón s/p bronchoscopy 11/02/16. Pathology favors squamous cell cancer. Oncology wants repeat biopsy for confirmation but IR states percutaneous biopsy too risky. -Consulted radiation oncology status post simulation, started XRT 11/11. -Med Oncology consulted, Dr Braxton following, Port placed, planning for chemo starting Wednesday 11/15. -patient needs home O2 however unable to arrange at this time (no payor source) . Repeat home O2 walk test today. COPD exacerbation/acute respiratory failure: O2 88% on RA. Mild leukocytosis. Imaging as above. Majority of symptoms are likely due to the lung mass, also has wheezing on exam. ED note indicates patient's nebulizer machine was not working. -S/p IV rocephin and IV azithromycin, but due to methadone use, switched to doxycycline 100 mg po bid until 11/14. -Duonebs q 4 with albuterol q 2 prn -Solumedrol IV switched to prednisone -Patient failed home O2 walk test, oxygen required at discharge, case management assisting, will repeat walk test today 11/12 Leukocytosis: WBC count increased likely due to steroid use. -Monitor CBC and watch for fevers Hypertension: -PRN clonidine ordered SBP>180 -Improved continue Norvasc Methadone: Confirmed methadone dose with clinic. -Continue 160 mg daily Insomnia: As needed Restoril DVT prevention: SCDs, out of bed Discussed with Dr. Wang Attending Statement The exam, history, and the medical decision-making described in the above note were completed with the assistance of the mid-level provider. I reviewed and agree with the findings presented. I attest that I had a [id number] encounter with the patient on the same day, and personally performed and documented my assessment and findings in the medical record. Problem Qualifiers (1) Acute respiratory failure: Qualified Code: J96.01 - Acute respiratory failure with hypoxia Leonora Coates PA-C Nov 12, 2016 17:10 Conrado Wang MD Nov 12, 2016 19:25
[2016-11-12] MEDS: TEMAZEPAM 7.5 MG CAP PO PRN (21:46)
[2016-11-12] MEDS: ACETAMINOPHEN 325 MG TAB PO PRN (21:46)
[2016-11-12] MEDS: LACTATED RINGER'S 1000 ML IV SCH (21:47)
[2016-11-13] VITALS (8 sets, daily range): BP systolic 91–148; BP diastolic 55–77; PULSE 80–106; RESP 16–20; TEMP 96.6–98.9; O2SAT 92–95
[2016-11-13] MEDS: METHADONE HCL 10 MG TAB PO SCH (05:21)
--- NOTE | 2016-11-13 08:21 | HHI.PR ---
Subjective Remarks in no acute distress. on oxygen via [place] has occasional dry cough. Objective Vitals Vital Signs Date Time Temp Pulse Resp B/P Pulse Ox O2 Delivery O2 Flow Rate FiO2 11/13/16 06:05 16 11/13/16 04:00 96.6 83 16 113/55 93 11/13/16 00:00 98.9 106 17 121/69 94 11/12/16 21:46 Nasal Cannula 2.00 11/12/16 20:00 99.5 90 18 117/77 91 11/12/16 17:34 91 21 11/12/16 16:00 96.5 85 18 110/72 92 11/12/16 12:30 96.7 98 20 106/67 91 11/12/16 12:00 96.8 75 17 103/57 96 I/O 11/12/16 11/12/16 11/12/16 11/13/16 11/13/16 11/13/16 07:00 15:00 23:00 07:00 15:00 23:00 Intake Total 480 ml 600 ml 480 ml 240 ml Output Total 600 ml 700 ml Balance -120 ml -100 ml 480 ml 240 ml Intake Oral 480 ml 600 ml 480 ml 240 ml Output Urine Total 600 ml 700 ml # Voids 1 2 2 # Bowel Movements 0 1 1 Result Diagram: 11/09/160 11/09/16 0440 Imaging Last Impressions Port Line Insertion 11/05/16 0600 Signed Impressions: Service Date/Time: Saturday, November 05, 2016 10:55 - CONCLUSION: Uncomplicated ultrasound and fluoroscopic guided implanted central venous port catheter placement as described in detail above. An 8 [place] Power port was placed. Stevie Yu MD Chest X-Ray 11/02/16 0000 Signed Impressions: Service Date/Time: Wednesday, November 02, 2016 13:04 - CONCLUSION: 1. No pneumothorax, status post bronchoscopy. Ramiro Neves MD Chest Ultrasound 11/02/16 0000 Signed Impressions: Service Date/Time: Wednesday, November 02, 2016 22:31 - CONCLUSION: Dense consolidation of the right lower lobe. No pleural fluid seen. Mirza Donnelly Jr., MD Brain MRI 11/01/16 0000 Signed Impressions: Service Date/Time: Tuesday, November 01, 2016 15:15 - CONCLUSION: 1. No metastatic disease or other acute intracranial abnormality. 2. Mild, chronic white matter changes. 3. Chronically deformed left globe. Omar Venegas MD Bone Scan Nuclear Medicine 11/01/16 0000 Signed Impressions: Service Date/Time: Tuesday, November 01, 2016 12:02 - CONCLUSION: No definite scintigraphic evidence of osseous metastatic disease. Anup Bowman MD Abdomen/Pelvis CT 11/01/16 0000 Signed Impressions: Service Date/Time: Wednesday, November 02, 2016 20:35 - CONCLUSION: Slightly greater than 4.5 cm solid mass involving the lower pole of the right kidney. No other evidence of neoplastic disease in the abdomen or pelvis. Omar Arnold MD Chest CT 10/30/16 0000 Signed Impressions: Service Date/Time: Sunday, October 30, 2016 16:20 - CONCLUSION: 1. Large right hilar/infrahilar mass compatible with a central primary bronchogenic carcinoma. 2. Mediastinal and right hilar metastatic adenopathy. 3. Hepatic cysts. No metastatic disease demonstrated in the visualized upper abdomen or of the visualized osseous structures. Omar Venegas MD ADDENDUM: A right chest ultrasound was done a couple hours after the CT showing densely consolidated right lung base without perceptible pleural fluid. The noncontrast CT clearly shows heterogeneous attenuation of the right base, and in conjunction with the ultrasound must represent different age or degree of parenchymal consolidation or a combination of atelectasis and pneumonia. Omar Venegas MD Objective Remarks GENERAL: This is a well-nourished, well-developed patient, in no apparent distress. CARDIOVASCULAR: Regular rate and regular rhythm without murmurs, gallops, or rubs. RESPIRATORY: Clear to auscultation. Breath sounds equal bilaterally. No wheezes , rales, or rhonchi. GASTROINTESTINAL: Abdomen soft, non-tender, nondistended. Normal, active bowel sounds MUSCULOSKELETAL: Extremities without clubbing, cyanosis, or edema. NEURO: Alert & Oriented x4 to person, place, time, situation. Moves all ext x4 Procedures Bronchoscopy, port placement Medications and IVs Current Medications IV Flush (NS Flush) 2 ml UNSCH PRN IVF FLUSH AFTER USING IV ACCESS; Start at 15:00; Stop 10/30/16 at 16:49; Status DC Methylprednisolone Sodium Succinate (SoluMEDROL INJ) 125 mg ONCE ONCE IVP Last administered on 10/30/16at 15:05; Start 10/30/16 at 15:00; Stop 10/30/16 at 15:01; Status DC Albuterol/ Ipratropium (Duoneb Neb) 1 ampule Q15M INH Last administered on at 15:27; Start 10/30/16 at 15:00; Stop 10/30/16 at 15:31; Status DC IV Flush (NS Flush) 2 ml UNSCH PRN FLUSH FLUSH AFTER USING IV ACCESS; Start at 16:00; Stop 10/31/16 at 17:07; Status DC IV Flush (NS Flush) 2 ml BID FLUSH Last administered on 10/31/16 08:17; Start 10/30/16 at 21:00; Stop 10/31/16 at 17:07; Status DC Acetaminophen (Tylenol) 650 mg Q4H PRN PO TEMP > 100.4; Start 10/30/16 at 16: 00; Stop 10/31/16 at 17:07; Status DC Ondansetron HCl (Zofran Inj) 4 mg Q6H PRN IVP NAUSEA OR VOMITING; Start at 16:00; Stop 10/31/16 at 17:07; Status DC Magnesium Hydroxide (Milk Of Magnesia Liq) 30 ml Q12H PRN PO CONSTIPATION; Start 10/30/16 at 16:00; Stop 10/31/16 at 17:07; Status DC Heparin Sodium (Porcine) (Heparin Inj) 5,000 units Q12H SQ Last administered on 10/31/16 16:38; Start 10/30/16 at 18:00; Stop 10/31/16 at 17:07; Status DC Naloxone HCl (Narcan Inj) 0.4 mg UNSCH PRN IV SEE LABEL COMMENTS; Start at 16:00; Stop 10/31/16 at 17:07; Status DC Methylprednisolone Sodium Succinate (SoluMEDROL INJ) 40 mg Q6H IV PUSH Last administered on 11/01/16 08:02; Start 10/30/16 at 21:00; Stop 11/01/16 at 13:07 ; Status DC Albuterol/ Ipratropium (Duoneb Neb) 1 ampule QID NEB NEB Last administered on 11/07/16 11:46; Start 10/30/16 at 16:00; Stop 11/07/16 at 14:04; Status DC Albuterol Sulfate 2.5 mg 2.5 mg Q2HR NEB PRN NEB DYSPNEA; Start 10/30/16 at 16 :00 Azithromycin/ Sodium Chloride (Zithromax Inj/ NS 250 ml Inj) 250 ml @ 250 mls/ hr Q24H IV Last administered on 10/30/16at 17:11; Start 10/30/16 at 18:00; Stop 10/30/16 at 18:28; Status DC Doxycycline Hyclate (Vibratab) 100 mg BID PO Last administered on 11/12/16 21: 46; Start 10/31/16 at 09:00; Stop 11/14/16 at 08:59 Budesonide/ Formoterol Fumarate (Symbicort 160-4.5 Inh) 2 puff Q12HR INH Last administered on 11/12/16 21:46; Start 10/30/16 at 21:00 Methadone HCl 160 mg 160 mg DAILY PO Last administered on 11/02/16 08:10; Start 10/31/16 at 09:00; Stop 11/02/16 at 16:40; Status DC Ceftriaxone Sodium/Sodium Chloride (Rocephin Inj/NS Inj) 100 ml @ 200 mls/hr Q24H IV Last administered on 11/05/16 07:30; Start 10/31/16 at 08:00; Stop at 05:36; Status DC Clonidine (Catapres) 0.1 mg Q6H PRN PO SBP> OR = 180, DBP> OR = 100; Start 10/31 at 08:30; Stop 11/03/16 at 14:27; Status DC Lidocaine HCl (Lidocaine Pf 4% Neb) 3 ml DECK STEWARD NEB ; Start 10/31/16 at 18:00; Stop 11/04/16 at 17:59; Status DC Zolpidem Tartrate 5 mg 5 mg HS PRN PO SLEEP Last administered on 11/02/16 23:40 ; Start 10/31/16 at 18:00; Stop 11/03/16 at 14:04; Status DC Lactated Ringer's (Lr 1000 ml Inj) 1,000 ml @ 30 mls/hr Q24H IV ; Start at 23:45 Diatrizoate Meglum/ Diatrizoate Sod ( Gastrokerrie Liq) 18 ml ONCE ONCE PO Last administered on 11/02/16 17:13; Start 11/01/16 at 11:45; Stop 11/01/16 at 11: 46; Status DC Methylprednisolone Sodium Succinate (SoluMEDROL INJ) 40 mg Q8HR IV PUSH Last administered on 11/04/16 15:32; Start 11/01/16 at 14:00; Stop 11/04/16 at 19:05; Status DC Gadodiamide (Omniscan Pf Inj) 12 ml STK-MED ONCE IV PUSH Last administered on 15:54; Start 11/01/16 at 15:54; Stop 11/01/16 at 15:55; Status DC Acetaminophen (Tylenol) 650 mg Q4H PRN PO HEADACHE /FEVER Last administered on 11/12/16 21:46; Start 11/01/16 at 16:45 Diatrizoate Meglum/ Diatrizoate Sod ( Gastrokerrie Liq) 18 ml ONCE ONCE PO ; Start 11/02/16 at 06:00; Stop 11/02/16 at 06:01; Status DC Midazolam HCl (Versed Inj) 2 mg STK-MED ONCE .ROUTE ; Start 11/02/16 at 12:03; Stop 11/02/16 at 12:04; Status DC Methylprednisolone Sodium Succinate (SoluMEDROL INJ) 125 mg STK-MED ONCE .ROUTE ; Start 11/02/16 at 12:03; Stop 11/02/16 at 12:04; Status DC Lidocaine HCl (Xylocaine-Mpf 4% Inj) 5 ml STK-MED ONCE .ROUTE ; Start 11/02/16 at 12:25; Stop 11/02/16 at 12:26; Status DC Sugammadex Sodium (Bridion Inj) 200 mg STK-MED ONCE IV PUSH ; Start 11/02/16 at 12:30; Stop 11/02/16 at 12:31; Status DC Albuterol Sulfate (Albuterol Neb) 2.5 mg UNSCH X1 PRN NEB SHORTNESS OF BREATH; Start 11/02/16 at 13:00; Stop 11/03/16 at 12:59; Status DC Miscellaneous Information ALL NURSING DEPARTME... UNSCH PRN XX SEE LABEL COMMENTS; Start 11/02/16 at 13:15; Stop 11/03/16 at 13:14; Status DC Albuterol Sulfate (*ALBUTEROL NEB PERIprocedure ONLY) 2.5 mg STK-MED ONCE NEB Last administered on 11/02/16 13:14; Start 11/02/16 at 13:14; Stop 11/02/16 at 13: 15; Status DC Midazolam HCl (Versed Inj) 2 mg STK-MED ONCE .ROUTE ; Start 11/02/16 at 13:48; Stop 11/02/16 at 13:49; Status DC Labetalol HCl (*TRANDATE INJ PERIprocedural Use ONLY) 100 mg STK-MED ONCE .ROUTE Last administered on 11/02/16 13:51; Start 11/02/16 at 13:51; Stop at 13:52; Status DC Methadone HCl (Dolophine) 160 mg DAILY@06 PO Last administered on 11/13/16 05: 21; Start 11/03/16 at 06:00 Iohexol (Omnipaque 350 Inj) 80 ml STK-MED ONCE IV Last administered on 20:42; Start 11/02/16 at 20:42; Stop 11/02/16 at 20:43; Status DC Ondansetron HCl (Zofran Inj) 4 mg Q6H PRN IV PUSH NAUSEA Last administered on 15:18; Start 11/03/16 at 08:30 Ondansetron HCl (Zofran Inj) 4 mg STK-MED ONCE .ROUTE ; Start 11/03/16 at 08:44; Stop 11/03/16 at 08:46; Status DC Propofol (Diprivan 200 Mg/20 ml Inj) 200 mg STK-MED ONCE IV ; Start 11/02/16 at 09:10; Stop 11/03/16 at 09:10; Status DC Ondansetron HCl (Zofran Inj) 4 mg STK-MED ONCE IV PUSH ; Start 11/02/16 at 09:10 ; Stop 11/03/16 at 09:10; Status DC Zolpidem Tartrate (Ambien) 10 mg HS PRN PO SLEEP Last administered on 11/03/16 20:56; Start 11/03/16 at 14:00; Stop 11/04/16 at 14:53; Status DC Enalaprilat (Vasotec Inj) 1.25 mg Q6H PRN IV SBP> OR = 180, DBP> OR = 100 Last administered on 11/04/16 00:46; Start 11/03/16 at 14:15 Clonidine (Catapres) 0.1 mg Q6H PRN PO SBP> OR = 180, DBP> OR = 100 Last administered on 11/04/16 15:38; Start 11/03/16 at 14:15 Promethazine HCl (Phenergan Inj) 12.5 mg Q6H PRN IM nausea Last administered on 11/05/16 21:00; Start 11/04/16 at 02:00 Amlodipine Besylate (Norvasc) 2.5 mg DAILY PO Last administered on 11/12/16 08 :06; Start 11/04/16 at 09:00 Temazepam 7.5 mg 7.5 mg HS PRN PO insomnia; Start 11/04/16 at 15:00; Stop at 19:28; Status DC Vancomycin HCl/ Sodium Chloride (Vancomycin Inj/ NS 250 ml Inj) 250 ml @ 250 mls/hr DECK STEWARD IV Last administered on 11/05/16 09:22; Start 11/04/16 at 18:00 ; Stop 11/08/16 at 17:59; Status DC Prednisone (Deltasone) 20 mg DAILY PO Last administered on 11/08/16 08:20; Start 11/05/16 at 09:00; Stop 11/08/16 at 20:24; Status DC Temazepam (Restoril) 15 mg HS PRN PO insomnia; Start 11/04/16 at 20:00; Stop 11/04/16 at 20:00; Status DC Temazepam (Restoril) 15 mg HS PRN PO INSOMNIA Last administered on 11/04/16 21: 07; Start 11/04/16 at 20:00; Stop 11/05/16 at 21:18; Status DC Midazolam HCl (Versed Inj) 5 mg STK-MED ONCE .ROUTE Last administered on 10:54; Start 11/05/16 at 10:48; Stop 11/05/16 at 10:49; Status DC Fentanyl Citrate (fentaNYL INJ) 250 mcg STK-MED ONCE .ROUTE Last administered on 11/05/16 10:54; Start 11/05/16 at 10:48; Stop 11/05/16 at 10:49; Status DC Heparin Sodium (Porcine) (*HEPARIN CENTRAL FLUSH PERIprocedural ONLY) 500 units STK-MED ONCE .ROUTE Last administered on 11/05/16 11:28; Start 11/05/16 at 10:55 ; Stop 11/05/16 at 10:56; Status DC Lidocaine/ Epinephrine (Xylocaine-Epi 1%-1:100,000 Inj) 20 ml STK-MED ONCE .ROUTE Last administered on 11/05/16 11:28; Start 11/05/16 at 10:55; Stop at 10:56; Status DC Fentanyl Citrate (fentaNYL INJ) 100 mcg STK-MED ONCE .ROUTE Last administered on 11/05/16 11:18; Start 11/05/16 at 11:18; Stop 11/05/16 at 11:19; Status DC Heparin Sodium (Porcine) (Heparin Central Flush) 500 units UNSCH IVF ; Start 11/05/16 at 11:45 IV Flush (NS Flush) 5 ml UNSCH PRN IVF SEE PROTOCOL; Start 11/05/16 at 11:45 Heparin Sodium (Porcine) (Heparin Central Flush) 250 units UNSCH PRN IVF SEE PROTOCOL; Start 11/05/16 at 11:45 Temazepam (Restoril) 7.5 mg HS PRN PO INSOMNIA; Start 11/05/16 at 21:30; Status Cancel Temazepam (Restoril) 7.5 mg HS PRN PO INSOMNIA Last administered on 11/12/16 21:46; Start 11/05/16 at 21:45 Prednisone (Deltasone) 10 mg DAILY PO Last administered on 11/12/16 08:07; Start 11/09/16 at 09:00 A/P Assessment and Plan Sepsis: Tachycardic 102. RR 30. Pneumonia suspected. Continue doxycycline end date November 14. DC'd Rocephin. Sepsis Resolved. Lung mass/pleural effusion with new diagnosis of NSCLC: CT chest reveals 4.3 x 7.1 x 8.2 cm mass, likely bronchogenic carcinoma with mediastinal and right hilar metastatic adenopathy; moderate pleural effusion with loculation laterally at the base. Patient is a smoker. -Brain MRI and bone scan, no metastatic disease noted on the scan. -CT abd/pel with solid mass right kidney -Pulmonology consultation. Dr. Calderón s/p bronchoscopy 11/02/16. Pathology favors squamous cell cancer. -Consulted radiation oncology status post simulation, started XRT 11/11. -Med Oncology consulted, Dr Braxton following, Port placed, planning for chemo starting Wednesday 11/15. -walk test was repeated on 11/12 and no hypoxia on ambulation. COPD exacerbation/acute respiratory failure: O2 88% on RA. Mild leukocytosis. Imaging as above. Majority of symptoms are likely due to the lung mass, also has wheezing on exam. ED note indicates patient's nebulizer machine was not working. -S/p IV rocephin and IV azithromycin, but due to methadone use, switched to doxycycline 100 mg po bid until 11/14. -Duonebs q 4 with albuterol q 2 prn -Solumedrol IV switched to prednisone -walk test repeated as noted above. Leukocytosis: WBC count increased likely due to steroid use. -Monitor CBC and watch for fevers Hypertension: -PRN clonidine ordered SBP>180 -Improved continue Norvasc Methadone: Confirmed methadone dose with clinic. -Continue 160 mg daily Insomnia: As needed Restoril DVT prevention: SCDs, out of bed Chana Westbrook MD Nov 13, 2016 08:21
[2016-11-13] MEDS: amLODIPine BESYLATE 5 MG TAB PO SCH (08:32)
[2016-11-13] MEDS: DOXYCYCLINE HYCLATE 100 MG TAB PO SCH ×2 (08:36→19:34)
[2016-11-13] MEDS: predniSONE 10 MG TAB PO SCH (08:36)
[2016-11-13] MEDS: BUDESONIDE-FORMOTEROL 160/4.5 MCG INHALER INH SCH ×2 (08:36→19:35)
[2016-11-13] MEDS: ONDANSETRON HCL 4 MG/2 ML VIAL IV PUSH PRN (14:06)
[2016-11-13] MEDS: LACTATED RINGER'S 1000 ML IV SCH (19:35)
[2016-11-13] MEDS: TEMAZEPAM 7.5 MG CAP PO PRN (20:37)
[2016-11-14] VITALS (8 sets, daily range): BP systolic 120–133; BP diastolic 56–96; PULSE 74–98; RESP 16–19; TEMP 96.5–97.8; O2SAT 90–95
[2016-11-14] MEDS: METHADONE HCL 10 MG TAB PO SCH (06:01)
[2016-11-14 07:15] LABS: BASOPHIL # 0.1 TH/MM3 (0-0.2); BASOPHIL % 0.7 % (0.0-2.0); EOSINOPHIL # 0.1 TH/MM3 (0-0.4); EOSINOPHIL % 0.6 % (0.0-4.0); HEMATOCRIT 39.9 % (35.0-46.0); HEMO FLAGS DIFF FINAL; LYMPHOCYTE # 0.6 TH/MM3 (1.0-4.8); MEAN CELL VOLUME 89.1 FL (80.0-100.0); MEAN CORPUSCULAR HEMOGLOBIN 29.3 PG (27.0-34.0); MEAN CORPUSCULAR HGB CONC 32.9 % (32.0-36.0); MONO % 8.6 % (0.0-8.0); NEUT % 85.1 % (16.0-70.0); PLATELET COUNT 288 TH/MM3 (150-450); RED BLOOD COUNT 4.48 MIL/MM3 (4.00-5.30); RED CELL DISTRIBUTION WIDTH 13.7 % (11.6-17.2); WHITE BLOOD COUNT 12.9 TH/MM3 (4.0-11.0)
[2016-11-14 07:34] LABS: ALKALINE PHOSPHATASE 68 U/L (45-117); ALT (GPT) 19 U/L (10-53); ANION GAP 8 MEQ/L (5-15); AST (GOT) 11 U/L (15-37); BICARBONATE 32.3 MEQ/L (21.0-32.0); BLOOD UREA NITROGEN 14 MG/DL (7-18); CHLORIDE 91 MEQ/L (98-107); GLOMERULAR FILTRATION RATE 92 ML/MIN (>89); SODIUM (NA) 131 MEQ/L (136-145); TOTAL BILIRUBIN ADULT 0.3 MG/DL (0.2-1.0)
[2016-11-14] MEDS: amLODIPine BESYLATE 5 MG TAB PO SCH (08:27)
[2016-11-14] MEDS: predniSONE 10 MG TAB PO SCH (08:28)
[2016-11-14] MEDS: SODIUM CHLORIDE 0.9% FLUSH 5 ML FLUSH IVF PRN (08:28)
[2016-11-14] MEDS: BUDESONIDE-FORMOTEROL 160/4.5 MCG INHALER INH SCH ×2 (08:29→19:18)
--- NOTE | 2016-11-14 10:53 | HHI.PR ---
Subjective Remarks resting in no distress. d/w the RN and reportedly had a pulse of 88% earlier today. Objective Vitals Vital Signs Date Time Temp Pulse Resp B/P Pulse Ox O2 Delivery O2 Flow Rate FiO2 11/14/16 09:53 Nasal Cannula 2.00 11/14/16 08:00 97.6 98 18 126/96 90 11/14/16 07:17 93 2.00 11/14/16 04:00 97.5 91 19 131/70 93 11/14/16 00:00 97.3 89 19 120/56 94 11/13/16 20:00 Nasal Cannula 2.00 11/13/16 20:00 97.3 97 18 148/76 93 11/13/16 19:50 93 Nasal Cannula 2.00 11/13/16 16:00 98.1 90 16 114/77 94 11/13/16 13:45 92 11/13/16 12:00 97.4 88 16 106/68 94 I/O 11/13/16 11/13/16 11/13/16 11/14/16 11/14/16 11/14/16 07:00 15:00 23:00 07:00 15:00 23:00 Intake Total 240 ml 840 ml 480 ml 480 ml 240 ml Balance 240 ml 840 ml 480 ml 480 ml 240 ml Intake Oral 240 ml 840 ml 480 ml 480 ml 240 ml # Voids 2 2 3 3 # Bowel Movements 1 1 Result Diagram: 11/14/16 0623 11/14/16 0623 Imaging Last Impressions Port Line Insertion 11/05/16 0600 Signed Impressions: Service Date/Time: Saturday, November 05, 2016 10:55 - CONCLUSION: Uncomplicated ultrasound and fluoroscopic guided implanted central venous port catheter placement as described in detail above. An 8 [place] Power port was placed. Stevie Yu MD Chest X-Ray 11/02/16 0000 Signed Impressions: Service Date/Time: Wednesday, November 02, 2016 13:04 - CONCLUSION: 1. No pneumothorax, status post bronchoscopy. Ramiro Neves MD Chest Ultrasound 11/02/16 0000 Signed Impressions: Service Date/Time: Wednesday, November 02, 2016 22:31 - CONCLUSION: Dense consolidation of the right lower lobe. No pleural fluid seen. Mirza Donnelly Jr., MD Brain MRI 11/01/16 0000 Signed Impressions: Service Date/Time: Tuesday, November 01, 2016 15:15 - CONCLUSION: 1. No metastatic disease or other acute intracranial abnormality. 2. Mild, chronic white matter changes. 3. Chronically deformed left globe. Omar Venegas MD Bone Scan Nuclear Medicine 11/01/16 0000 Signed Impressions: Service Date/Time: Tuesday, November 01, 2016 12:02 - CONCLUSION: No definite scintigraphic evidence of osseous metastatic disease. Anup Bowman MD Abdomen/Pelvis CT 11/01/16 0000 Signed Impressions: Service Date/Time: Wednesday, November 02, 2016 20:35 - CONCLUSION: Slightly greater than 4.5 cm solid mass involving the lower pole of the right kidney. No other evidence of neoplastic disease in the abdomen or pelvis. Omar Arnold MD Chest CT 10/30/16 0000 Signed Impressions: Service Date/Time: Sunday, October 30, 2016 16:20 - CONCLUSION: 1. Large right hilar/infrahilar mass compatible with a central primary bronchogenic carcinoma. 2. Mediastinal and right hilar metastatic adenopathy. 3. Hepatic cysts. No metastatic disease demonstrated in the visualized upper abdomen or of the visualized osseous structures. Omar Venegas MD ADDENDUM: A right chest ultrasound was done a couple hours after the CT showing densely consolidated right lung base without perceptible pleural fluid. The noncontrast CT clearly shows heterogeneous attenuation of the right base, and in conjunction with the ultrasound must represent different age or degree of parenchymal consolidation or a combination of atelectasis and pneumonia. Omar Venegas MD Objective Remarks GENERAL: in no apparent distress. CARDIOVASCULAR: Regular rate and regular rhythm without murmurs, gallops, or rubs. RESPIRATORY: Clear to auscultation. Breath sounds equal bilaterally. No wheezes , rales, or rhonchi. GASTROINTESTINAL: Abdomen soft, non-tender, nondistended. Normal, active bowel sounds MUSCULOSKELETAL: Extremities without clubbing, cyanosis, or edema. NEURO: Alert & Oriented x4 to person, place, time, situation. Moves all ext x4 Procedures Bronchoscopy, port placement Medications and IVs Current Medications IV Flush (NS Flush) 2 ml UNSCH PRN IVF FLUSH AFTER USING IV ACCESS; Start at 15:00; Stop 10/30/16 at 16:49; Status DC Methylprednisolone Sodium Succinate (SoluMEDROL INJ) 125 mg ONCE ONCE IVP Last administered on 10/30/16at 15:05; Start 10/30/16 at 15:00; Stop 10/30/16 at 15:01; Status DC Albuterol/ Ipratropium (Duoneb Neb) 1 ampule Q15M INH Last administered on at 15:27; Start 10/30/16 at 15:00; Stop 10/30/16 at 15:31; Status DC IV Flush (NS Flush) 2 ml UNSCH PRN FLUSH FLUSH AFTER USING IV ACCESS; Start at 16:00; Stop 10/31/16 at 17:07; Status DC IV Flush (NS Flush) 2 ml BID FLUSH Last administered on 10/31/16 08:17; Start 10/30/16 at 21:00; Stop 10/31/16 at 17:07; Status DC Acetaminophen (Tylenol) 650 mg Q4H PRN PO TEMP > 100.4; Start 10/30/16 at 16: 00; Stop 10/31/16 at 17:07; Status DC Ondansetron HCl (Zofran Inj) 4 mg Q6H PRN IVP NAUSEA OR VOMITING; Start at 16:00; Stop 10/31/16 at 17:07; Status DC Magnesium Hydroxide (Milk Of Magnesia Liq) 30 ml Q12H PRN PO CONSTIPATION; Start 10/30/16 at 16:00; Stop 10/31/16 at 17:07; Status DC Heparin Sodium (Porcine) (Heparin Inj) 5,000 units Q12H SQ Last administered on 10/31/16 16:38; Start 10/30/16 at 18:00; Stop 10/31/16 at 17:07; Status DC Naloxone HCl (Narcan Inj) 0.4 mg UNSCH PRN IV SEE LABEL COMMENTS; Start at 16:00; Stop 10/31/16 at 17:07; Status DC Methylprednisolone Sodium Succinate (SoluMEDROL INJ) 40 mg Q6H IV PUSH Last administered on 11/01/16 08:02; Start 10/30/16 at 21:00; Stop 11/01/16 at 13:07 ; Status DC Albuterol/ Ipratropium (Duoneb Neb) 1 ampule QID NEB NEB Last administered on 11/07/16 11:46; Start 10/30/16 at 16:00; Stop 11/07/16 at 14:04; Status DC Albuterol Sulfate 2.5 mg 2.5 mg Q2HR NEB PRN NEB DYSPNEA; Start 10/30/16 at 16 :00 Azithromycin/ Sodium Chloride (Zithromax Inj/ NS 250 ml Inj) 250 ml @ 250 mls/ hr Q24H IV Last administered on 10/30/16at 17:11; Start 10/30/16 at 18:00; Stop 10/30/16 at 18:28; Status DC Doxycycline Hyclate (Vibratab) 100 mg BID PO Last administered on 11/13/16 19: 34; Start 10/31/16 at 09:00; Stop 11/14/16 at 08:59; Status DC Budesonide/ Formoterol Fumarate (Symbicort 160-4.5 Inh) 2 puff Q12HR INH Last administered on 11/14/16 08:29; Start 10/30/16 at 21:00 Methadone HCl 160 mg 160 mg DAILY PO Last administered on 11/02/16 08:10; Start 10/31/16 at 09:00; Stop 11/02/16 at 16:40; Status DC Ceftriaxone Sodium/Sodium Chloride (Rocephin Inj/NS Inj) 100 ml @ 200 mls/hr Q24H IV Last administered on 11/05/16 07:30; Start 10/31/16 at 08:00; Stop at 05:36; Status DC Clonidine (Catapres) 0.1 mg Q6H PRN PO SBP> OR = 180, DBP> OR = 100; Start 10/31 at 08:30; Stop 11/03/16 at 14:27; Status DC Lidocaine HCl (Lidocaine Pf 4% Neb) 3 ml TRACK GREASER NEB ; Start 10/31/16 at 18:00; Stop 11/04/16 at 17:59; Status DC Zolpidem Tartrate 5 mg 5 mg HS PRN PO SLEEP Last administered on 11/02/16 23:40 ; Start 10/31/16 at 18:00; Stop 11/03/16 at 14:04; Status DC Lactated Ringer's (Lr 1000 ml Inj) 1,000 ml @ 30 mls/hr Q24H IV ; Start at 23:45 Diatrizoate Meglum/ Diatrizoate Sod ( Gastroview Liq) 18 ml ONCE ONCE PO Last administered on 11/02/16 17:13; Start 11/01/16 at 11:45; Stop 11/01/16 at 11: 46; Status DC Methylprednisolone Sodium Succinate (SoluMEDROL INJ) 40 mg Q8HR IV PUSH Last administered on 11/04/16 15:32; Start 11/01/16 at 14:00; Stop 11/04/16 at 19:05; Status DC Gadodiamide (Omniscan Pf Inj) 12 ml STK-MED ONCE IV PUSH Last administered on 15:54; Start 11/01/16 at 15:54; Stop 11/01/16 at 15:55; Status DC Acetaminophen (Tylenol) 650 mg Q4H PRN PO HEADACHE /FEVER Last administered on 11/12/16 21:46; Start 11/01/16 at 16:45 Diatrizoate Meglum/ Diatrizoate Sod ( Gastrokerrie Liq) 18 ml ONCE ONCE PO ; Start 11/02/16 at 06:00; Stop 11/02/16 at 06:01; Status DC Midazolam HCl (Versed Inj) 2 mg STK-MED ONCE .ROUTE ; Start 11/02/16 at 12:03; Stop 11/02/16 at 12:04; Status DC Methylprednisolone Sodium Succinate (SoluMEDROL INJ) 125 mg STK-MED ONCE .ROUTE ; Start 11/02/16 at 12:03; Stop 11/02/16 at 12:04; Status DC Lidocaine HCl (Xylocaine-Mpf 4% Inj) 5 ml STK-MED ONCE .ROUTE ; Start 11/02/16 at 12:25; Stop 11/02/16 at 12:26; Status DC Sugammadex Sodium (Bridion Inj) 200 mg STK-MED ONCE IV PUSH ; Start 11/02/16 at 12:30; Stop 11/02/16 at 12:31; Status DC Albuterol Sulfate (Albuterol Neb) 2.5 mg UNSCH X1 PRN NEB SHORTNESS OF BREATH; Start 11/02/16 at 13:00; Stop 11/03/16 at 12:59; Status DC Miscellaneous Information ALL NURSING DEPARTME... UNSCH PRN XX SEE LABEL COMMENTS; Start 11/02/16 at 13:15; Stop 11/03/16 at 13:14; Status DC Albuterol Sulfate (*ALBUTEROL NEB PERIprocedure ONLY) 2.5 mg STK-MED ONCE NEB Last administered on 11/02/16 13:14; Start 11/02/16 at 13:14; Stop 11/02/16 at 13: 15; Status DC Midazolam HCl (Versed Inj) 2 mg STK-MED ONCE .ROUTE ; Start 11/02/16 at 13:48; Stop 11/02/16 at 13:49; Status DC Labetalol HCl (*TRANDATE INJ PERIprocedural Use ONLY) 100 mg STK-MED ONCE .ROUTE Last administered on 11/02/16 13:51; Start 11/02/16 at 13:51; Stop at 13:52; Status DC Methadone HCl (Dolophine) 160 mg DAILY@06 PO Last administered on 11/14/16 06: 01; Start 11/03/16 at 06:00 Iohexol (Omnipaque 350 Inj) 80 ml STK-MED ONCE IV Last administered on 20:42; Start 11/02/16 at 20:42; Stop 11/02/16 at 20:43; Status DC Ondansetron HCl (Zofran Inj) 4 mg Q6H PRN IV PUSH NAUSEA Last administered on 14:06; Start 11/03/16 at 08:30 Ondansetron HCl (Zofran Inj) 4 mg STK-MED ONCE .ROUTE ; Start 11/03/16 at 08:44; Stop 11/03/16 at 08:46; Status DC Propofol (Diprivan 200 Mg/20 ml Inj) 200 mg STK-MED ONCE IV ; Start 11/02/16 at 09:10; Stop 11/03/16 at 09:10; Status DC Ondansetron HCl (Zofran Inj) 4 mg STK-MED ONCE IV PUSH ; Start 11/02/16 at 09:10 ; Stop 11/03/16 at 09:10; Status DC Zolpidem Tartrate (Ambien) 10 mg HS PRN PO SLEEP Last administered on 11/03/16 20:56; Start 11/03/16 at 14:00; Stop 11/04/16 at 14:53; Status DC Enalaprilat (Vasotec Inj) 1.25 mg Q6H PRN IV SBP> OR = 180, DBP> OR = 100 Last administered on 11/04/16 00:46; Start 11/03/16 at 14:15 Clonidine (Catapres) 0.1 mg Q6H PRN PO SBP> OR = 180, DBP> OR = 100 Last administered on 11/04/16 15:38; Start 11/03/16 at 14:15 Promethazine HCl (Phenergan Inj) 12.5 mg Q6H PRN IM nausea Last administered on 11/05/16 21:00; Start 11/04/16 at 02:00 Amlodipine Besylate (Norvasc) 2.5 mg DAILY PO Last administered on 11/14/16 08 :27; Start 11/04/16 at 09:00 Temazepam 7.5 mg 7.5 mg HS PRN PO insomnia; Start 11/04/16 at 15:00; Stop at 19:28; Status DC Vancomycin HCl/ Sodium Chloride (Vancomycin Inj/ NS 250 ml Inj) 250 ml @ 250 mls/hr TRACK GREASER IV Last administered on 11/05/16 09:22; Start 11/04/16 at 18:00 ; Stop 11/08/16 at 17:59; Status DC Prednisone (Deltasone) 20 mg DAILY PO Last administered on 11/08/16 08:20; Start 11/05/16 at 09:00; Stop 11/08/16 at 20:24; Status DC Temazepam (Restoril) 15 mg HS PRN PO insomnia; Start 11/04/16 at 20:00; Stop 11/04/16 at 20:00; Status DC Temazepam (Restoril) 15 mg HS PRN PO INSOMNIA Last administered on 11/04/16 21: 07; Start 11/04/16 at 20:00; Stop 11/05/16 at 21:18; Status DC Midazolam HCl (Versed Inj) 5 mg STK-MED ONCE .ROUTE Last administered on 10:54; Start 11/05/16 at 10:48; Stop 11/05/16 at 10:49; Status DC Fentanyl Citrate (fentaNYL INJ) 250 mcg STK-MED ONCE .ROUTE Last administered on 11/05/16 10:54; Start 11/05/16 at 10:48; Stop 11/05/16 at 10:49; Status DC Heparin Sodium (Porcine) (*HEPARIN CENTRAL FLUSH PERIprocedural ONLY) 500 units STK-MED ONCE .ROUTE Last administered on 11/05/16 11:28; Start 11/05/16 at 10:55 ; Stop 11/05/16 at 10:56; Status DC Lidocaine/ Epinephrine (Xylocaine-Epi 1%-1:100,000 Inj) 20 ml STK-MED ONCE .ROUTE Last administered on 11/05/16 11:28; Start 11/05/16 at 10:55; Stop at 10:56; Status DC Fentanyl Citrate (fentaNYL INJ) 100 mcg STK-MED ONCE .ROUTE Last administered on 11/05/16 11:18; Start 11/05/16 at 11:18; Stop 11/05/16 at 11:19; Status DC Heparin Sodium (Porcine) (Heparin Central Flush) 500 units UNSCH IVF ; Start 11/05/16 at 11:45 IV Flush (NS Flush) 5 ml UNSCH PRN IVF SEE PROTOCOL Last administered on 08:28; Start 11/05/16 at 11:45 Heparin Sodium (Porcine) (Heparin Central Flush) 250 units UNSCH PRN IVF SEE PROTOCOL; Start 11/05/16 at 11:45 Temazepam (Restoril) 7.5 mg HS PRN PO INSOMNIA; Start 11/05/16 at 21:30; Status Cancel Temazepam (Restoril) 7.5 mg HS PRN PO INSOMNIA Last administered on 11/13/16 20:37; Start 11/05/16 at 21:45 Prednisone (Deltasone) 10 mg DAILY PO Last administered on 11/14/16 08:28; Start 11/09/16 at 09:00 A/P Assessment and Plan Sepsis: Tachycardic 102. RR 30. Pneumonia suspected. Continue doxycycline end date November 14. DC'd Rocephin. Sepsis Resolved. Lung mass/pleural effusion with new diagnosis of NSCLC: CT chest reveals 4.3 x 7.1 x 8.2 cm mass, likely bronchogenic carcinoma with mediastinal and right hilar metastatic adenopathy; moderate pleural effusion with loculation laterally at the base. Patient is a smoker. -Brain MRI and bone scan, no metastatic disease noted on the scan. -CT abd/pel with solid mass right kidney -Pulmonology consultation. Dr. Calderón s/p bronchoscopy 11/02/16. Pathology favors squamous cell cancer. -Consulted radiation oncology status post simulation, started XRT 11/11. -Med Oncology consulted, Dr Braxton following, Port placed, planning for chemo starting Wednesday 11/15. -walk test was repeated on 11/12 and no hypoxia on ambulation; however had a O2 sat of 88% earlier today; will probably need repeated walk test before discharge. COPD exacerbation/acute respiratory failure: O2 88% on RA. Mild leukocytosis. Imaging as above. Majority of symptoms are likely due to the lung mass, also has wheezing on exam. ED note indicates patient's nebulizer machine was not working. -S/p IV rocephin and IV azithromycin, but due to methadone use, switched to doxycycline 100 mg po bid until 11/14. -Duonebs q 4 with albuterol q 2 prn -Solumedrol IV switched to prednisone -walk test to be repeated before discharge. Leukocytosis: likely due to steroid use. -Monitor CBC and watch for fevers Hypertension: -PRN clonidine ordered SBP>180 -Improved continue Norvasc Methadone: Confirmed methadone dose with clinic. -Continue 160 mg daily Insomnia: As needed Restoril DVT prevention: SCDs, out of bed Chana Westbrook MD Nov 14, 2016 10:53
[2016-11-14] MEDS: ONDANSETRON HCL 4 MG/2 ML VIAL IV PUSH PRN ×2 (11:16→20:54)
[2016-11-14] MEDS: LACTATED RINGER'S 1000 ML IV SCH (19:21)
[2016-11-14] MEDS: TEMAZEPAM 7.5 MG CAP PO PRN (20:54)
[2016-11-15] VITALS (9 sets, daily range): BP systolic 110–154; BP diastolic 75–93; PULSE 60–98; RESP 16–20; TEMP 97.6–100.7; O2SAT 90–97
[2016-11-15] MEDS: ACETAMINOPHEN 325 MG TAB PO PRN ×2 (02:50→13:04)
[2016-11-15] MEDS: METHADONE HCL 10 MG TAB PO SCH (05:44)
[2016-11-15 07:14] LABS: ALT (GPT) 19 U/L (10-53); ANION GAP 10 MEQ/L (5-15); CHLORIDE 95 MEQ/L (98-107); SODIUM (NA) 134 MEQ/L (136-145)
[2016-11-15 07:16] LABS: ALKALINE PHOSPHATASE 65 U/L (45-117); AST (GOT) 13 U/L (15-37); GLOMERULAR FILTRATION RATE 91 ML/MIN (>89); TOTAL BILIRUBIN ADULT 0.3 MG/DL (0.2-1.0)
[2016-11-15 07:18] LABS: BLOOD UREA NITROGEN 11 MG/DL (7-18)
[2016-11-15 07:41] LABS: AUTOMATED NEUTROPHIL # 10.9 TH/MM3 (1.8-7.7); BASOPHIL # 0.1 TH/MM3 (0-0.2); BASOPHIL % 0.4 % (0.0-2.0); EOSINOPHIL # 0.2 TH/MM3 (0-0.4); EOSINOPHIL % 1.2 % (0.0-4.0); HEMO FLAGS DIFF FINAL; LYMPH % 5.2 % (9.0-44.0); LYMPHOCYTE # 0.7 TH/MM3 (1.0-4.8); MEAN CELL VOLUME 88.7 FL (80.0-100.0); MEAN CORPUSCULAR HEMOGLOBIN 28.6 PG (27.0-34.0); MEAN CORPUSCULAR HGB CONC 32.3 % (32.0-36.0); NEUT % 83.2 % (16.0-70.0); PLATELET COUNT 243 TH/MM3 (150-450); RED CELL DISTRIBUTION WIDTH 13.5 % (11.6-17.2); WHITE BLOOD COUNT 13.1 TH/MM3 (4.0-11.0)
[2016-11-15] MEDS: amLODIPine BESYLATE 5 MG TAB PO SCH (09:21)
[2016-11-15] MEDS: ONDANSETRON HCL 4 MG/2 ML VIAL IV PUSH PRN ×2 (09:21→21:32)
[2016-11-15] MEDS: predniSONE 10 MG TAB PO SCH (09:21)
[2016-11-15] MEDS: SODIUM CHLORIDE 0.9% FLUSH 5 ML FLUSH IVF PRN (09:21)
[2016-11-15] MEDS: BUDESONIDE-FORMOTEROL 160/4.5 MCG INHALER INH SCH ×2 (09:22→21:07)
--- NOTE | 2016-11-15 13:16 | HHI.PR ---
Subjective Remarks resting comfortably with no distress. no new complaints. had a low garde fever earlier. Objective Vitals Vital Signs Date Time Temp Pulse Resp B/P Pulse Ox O2 Delivery O2 Flow Rate FiO2 11/15/16 09:43 Room Air 11/15/16 09:40 93 21 11/15/16 08:00 98.3 94 16 125/75 90 11/15/16 05:48 98.3 11/15/16 04:00 100.7 98 20 134/93 95 11/15/16 02:51 95 Nasal Cannula 2.00 11/15/16 00:00 97.6 60 18 114/79 97 11/14/16 20:00 97.8 96 18 133/87 95 11/14/16 19:19 Room Air 11/14/16 19:19 93 11/14/16 16:00 96.9 74 16 120/80 94 I/O 11/14/16 11/14/16 11/14/16 11/15/16 11/15/16 11/15/16 07:00 15:00 23:00 07:00 15:00 23:00 Intake Total 480 ml 960 ml 960 ml 480 ml Balance 480 ml 960 ml 960 ml 480 ml Intake Oral 480 ml 960 ml 960 ml 480 ml # Voids 3 3 4 3 # Bowel Movements 0 1 Result Diagram: 11/15/16 0558 11/15/16 0558 Imaging Last Impressions Port Line Insertion 11/05/16 0600 Signed Impressions: Service Date/Time: Saturday, November 05, 2016 10:55 - CONCLUSION: Uncomplicated ultrasound and fluoroscopic guided implanted central venous port catheter placement as described in detail above. An 8 [employer] port was placed. Stevie Yu MD Chest X-Ray 11/02/16 0000 Signed Impressions: Service Date/Time: Wednesday, November 02, 2016 13:04 - CONCLUSION: 1. No pneumothorax, status post bronchoscopy. Ramiro Neves MD Chest Ultrasound 11/02/16 0000 Signed Impressions: Service Date/Time: Wednesday, November 02, 2016 22:31 - CONCLUSION: Dense consolidation of the right lower lobe. No pleural fluid seen. Mirza Donnelly Jr., MD Brain MRI 11/01/16 0000 Signed Impressions: Service Date/Time: Tuesday, November 01, 2016 15:15 - CONCLUSION: 1. No metastatic disease or other acute intracranial abnormality. 2. Mild, chronic white matter changes. 3. Chronically deformed left globe. Omar Venegas MD Bone Scan Nuclear Medicine 11/01/16 0000 Signed Impressions: Service Date/Time: Tuesday, November 01, 2016 12:02 - CONCLUSION: No definite scintigraphic evidence of osseous metastatic disease. Anup Bowman MD Abdomen/Pelvis CT 11/01/16 0000 Signed Impressions: Service Date/Time: Wednesday, November 02, 2016 20:35 - CONCLUSION: Slightly greater than 4.5 cm solid mass involving the lower pole of the right kidney. No other evidence of neoplastic disease in the abdomen or pelvis. Omar Arnold MD Chest CT 10/30/16 0000 Signed Impressions: Service Date/Time: Sunday, October 30, 2016 16:20 - CONCLUSION: 1. Large right hilar/infrahilar mass compatible with a central primary bronchogenic carcinoma. 2. Mediastinal and right hilar metastatic adenopathy. 3. Hepatic cysts. No metastatic disease demonstrated in the visualized upper abdomen or of the visualized osseous structures. Omar Venegas MD ADDENDUM: A right chest ultrasound was done a couple hours after the CT showing densely consolidated right lung base without perceptible pleural fluid. The noncontrast CT clearly shows heterogeneous attenuation of the right base, and in conjunction with the ultrasound must represent different age or degree of parenchymal consolidation or a combination of atelectasis and pneumonia. Omar Venegas MD Objective Remarks GENERAL: in no apparent distress. CARDIOVASCULAR: Regular rate and regular rhythm without murmurs, gallops, or rubs. RESPIRATORY: Clear to auscultation. Breath sounds equal bilaterally. No wheezes , rales, or rhonchi. GASTROINTESTINAL: Abdomen soft, non-tender, nondistended. Normal, active bowel sounds MUSCULOSKELETAL: Extremities without clubbing, cyanosis, or edema. NEURO: Alert & Oriented x4 to person, place, time, situation. Moves all ext x4 Procedures Bronchoscopy, port placement Medications and IVs Current Medications IV Flush (NS Flush) 2 ml UNSCH PRN IVF FLUSH AFTER USING IV ACCESS; Start at 15:00; Stop 10/30/16 at 16:49; Status DC Methylprednisolone Sodium Succinate (SoluMEDROL INJ) 125 mg ONCE ONCE IVP Last administered on 10/30/16at 15:05; Start 10/30/16 at 15:00; Stop 10/30/16 at 15:01; Status DC Albuterol/ Ipratropium (Duoneb Neb) 1 ampule Q15M INH Last administered on at 15:27; Start 10/30/16 at 15:00; Stop 10/30/16 at 15:31; Status DC IV Flush (NS Flush) 2 ml UNSCH PRN FLUSH FLUSH AFTER USING IV ACCESS; Start at 16:00; Stop 10/31/16 at 17:07; Status DC IV Flush (NS Flush) 2 ml BID FLUSH Last administered on 10/31/16 08:17; Start 10/30/16 at 21:00; Stop 10/31/16 at 17:07; Status DC Acetaminophen (Tylenol) 650 mg Q4H PRN PO TEMP > 100.4; Start 10/30/16 at 16: 00; Stop 10/31/16 at 17:07; Status DC Ondansetron HCl (Zofran Inj) 4 mg Q6H PRN IVP NAUSEA OR VOMITING; Start at 16:00; Stop 10/31/16 at 17:07; Status DC Magnesium Hydroxide (Milk Of Magnesia Liq) 30 ml Q12H PRN PO CONSTIPATION; Start 10/30/16 at 16:00; Stop 10/31/16 at 17:07; Status DC Heparin Sodium (Porcine) (Heparin Inj) 5,000 units Q12H SQ Last administered on 10/31/16 16:38; Start 10/30/16 at 18:00; Stop 10/31/16 at 17:07; Status DC Naloxone HCl (Narcan Inj) 0.4 mg UNSCH PRN IV SEE LABEL COMMENTS; Start at 16:00; Stop 10/31/16 at 17:07; Status DC Methylprednisolone Sodium Succinate (SoluMEDROL INJ) 40 mg Q6H IV PUSH Last administered on 11/01/16 08:02; Start 10/30/16 at 21:00; Stop 11/01/16 at 13:07 ; Status DC Albuterol/ Ipratropium (Duoneb Neb) 1 ampule QID NEB NEB Last administered on 11/07/16 11:46; Start 10/30/16 at 16:00; Stop 11/07/16 at 14:04; Status DC Albuterol Sulfate 2.5 mg 2.5 mg Q2HR NEB PRN NEB DYSPNEA; Start 10/30/16 at 16 :00 Azithromycin/ Sodium Chloride (Zithromax Inj/ NS 250 ml Inj) 250 ml @ 250 mls/ hr Q24H IV Last administered on 10/30/16at 17:11; Start 10/30/16 at 18:00; Stop 10/30/16 at 18:28; Status DC Doxycycline Hyclate (Vibratab) 100 mg BID PO Last administered on 11/13/16 19: 34; Start 10/31/16 at 09:00; Stop 11/14/16 at 08:59; Status DC Budesonide/ Formoterol Fumarate (Symbicort 160-4.5 Inh) 2 puff Q12HR INH Last administered on 11/15/16 09:22; Start 10/30/16 at 21:00 Methadone HCl 160 mg 160 mg DAILY PO Last administered on 11/02/16 08:10; Start 10/31/16 at 09:00; Stop 11/02/16 at 16:40; Status DC Ceftriaxone Sodium/Sodium Chloride (Rocephin Inj/NS Inj) 100 ml @ 200 mls/hr Q24H IV Last administered on 11/05/16 07:30; Start 10/31/16 at 08:00; Stop at 05:36; Status DC Clonidine (Catapres) 0.1 mg Q6H PRN PO SBP> OR = 180, DBP> OR = 100; Start 10/31 at 08:30; Stop 11/03/16 at 14:27; Status DC Lidocaine HCl (Lidocaine Pf 4% Neb) 3 ml [employer] NEB ; Start 10/31/16 at 18:00; Stop 11/04/16 at 17:59; Status DC Zolpidem Tartrate 5 mg 5 mg HS PRN PO SLEEP Last administered on 11/02/16 23:40 ; Start 10/31/16 at 18:00; Stop 11/03/16 at 14:04; Status DC Lactated Ringer's (Lr 1000 ml Inj) 1,000 ml @ 30 mls/hr Q24H IV ; Start at 23:45 Diatrizoate Meglum/ Diatrizoate Sod ( Gastroview Liq) 18 ml ONCE ONCE PO Last administered on 11/02/16 17:13; Start 11/01/16 at 11:45; Stop 11/01/16 at 11: 46; Status DC Methylprednisolone Sodium Succinate (SoluMEDROL INJ) 40 mg Q8HR IV PUSH Last administered on 11/04/16 15:32; Start 11/01/16 at 14:00; Stop 11/04/16 at 19:05; Status DC Gadodiamide (Omniscan Pf Inj) 12 ml STK-MED ONCE IV PUSH Last administered on 15:54; Start 11/01/16 at 15:54; Stop 11/01/16 at 15:55; Status DC Acetaminophen (Tylenol) 650 mg Q4H PRN PO HEADACHE /FEVER Last administered on 11/15/16 13:04; Start 11/01/16 at 16:45 Diatrizoate Meglum/ Diatrizoate Sod ( Gastrokerrie Liq) 18 ml ONCE ONCE PO ; Start 11/02/16 at 06:00; Stop 11/02/16 at 06:01; Status DC Midazolam HCl (Versed Inj) 2 mg STK-MED ONCE .ROUTE ; Start 11/02/16 at 12:03; Stop 11/02/16 at 12:04; Status DC Methylprednisolone Sodium Succinate (SoluMEDROL INJ) 125 mg STK-MED ONCE .ROUTE ; Start 11/02/16 at 12:03; Stop 11/02/16 at 12:04; Status DC Lidocaine HCl (Xylocaine-Mpf 4% Inj) 5 ml STK-MED ONCE .ROUTE ; Start 11/02/16 at 12:25; Stop 11/02/16 at 12:26; Status DC Sugammadex Sodium (Bridion Inj) 200 mg STK-MED ONCE IV PUSH ; Start 11/02/16 at 12:30; Stop 11/02/16 at 12:31; Status DC Albuterol Sulfate (Albuterol Neb) 2.5 mg UNSCH X1 PRN NEB SHORTNESS OF BREATH; Start 11/02/16 at 13:00; Stop 11/03/16 at 12:59; Status DC Miscellaneous Information ALL NURSING DEPARTME... UNSCH PRN XX SEE LABEL COMMENTS; Start 11/02/16 at 13:15; Stop 11/03/16 at 13:14; Status DC Albuterol Sulfate (*ALBUTEROL NEB PERIprocedure ONLY) 2.5 mg STK-MED ONCE NEB Last administered on 11/02/16 13:14; Start 11/02/16 at 13:14; Stop 11/02/16 at 13: 15; Status DC Midazolam HCl (Versed Inj) 2 mg STK-MED ONCE .ROUTE ; Start 11/02/16 at 13:48; Stop 11/02/16 at 13:49; Status DC Labetalol HCl (*TRANDATE INJ PERIprocedural Use ONLY) 100 mg STK-MED ONCE .ROUTE Last administered on 11/02/16 13:51; Start 11/02/16 at 13:51; Stop at 13:52; Status DC Methadone HCl (Dolophine) 160 mg DAILY@06 PO Last administered on 11/15/16 05: 44; Start 11/03/16 at 06:00 Iohexol (Omnipaque 350 Inj) 80 ml STK-MED ONCE IV Last administered on 20:42; Start 11/02/16 at 20:42; Stop 11/02/16 at 20:43; Status DC Ondansetron HCl (Zofran Inj) 4 mg Q6H PRN IV PUSH NAUSEA Last administered on 09:21; Start 11/03/16 at 08:30 Ondansetron HCl (Zofran Inj) 4 mg STK-MED ONCE .ROUTE ; Start 11/03/16 at 08:44; Stop 11/03/16 at 08:46; Status DC Propofol (Diprivan 200 Mg/20 ml Inj) 200 mg STK-MED ONCE IV ; Start 11/02/16 at 09:10; Stop 11/03/16 at 09:10; Status DC Ondansetron HCl (Zofran Inj) 4 mg STK-MED ONCE IV PUSH ; Start 11/02/16 at 09:10 ; Stop 11/03/16 at 09:10; Status DC Zolpidem Tartrate (Ambien) 10 mg HS PRN PO SLEEP Last administered on 11/03/16 20:56; Start 11/03/16 at 14:00; Stop 11/04/16 at 14:53; Status DC Enalaprilat (Vasotec Inj) 1.25 mg Q6H PRN IV SBP> OR = 180, DBP> OR = 100 Last administered on 11/04/16 00:46; Start 11/03/16 at 14:15 Clonidine (Catapres) 0.1 mg Q6H PRN PO SBP> OR = 180, DBP> OR = 100 Last administered on 11/04/16 15:38; Start 11/03/16 at 14:15 Promethazine HCl (Phenergan Inj) 12.5 mg Q6H PRN IM nausea Last administered on 11/05/16 21:00; Start 11/04/16 at 02:00 Amlodipine Besylate (Norvasc) 2.5 mg DAILY PO Last administered on 11/15/16 09 :21; Start 11/04/16 at 09:00 Temazepam 7.5 mg 7.5 mg HS PRN PO insomnia; Start 11/04/16 at 15:00; Stop at 19:28; Status DC Vancomycin HCl/ Sodium Chloride (Vancomycin Inj/ NS 250 ml Inj) 250 ml @ 250 mls/hr [employer] IV Last administered on 11/05/16 09:22; Start 11/04/16 at 18:00 ; Stop 11/08/16 at 17:59; Status DC Prednisone (Deltasone) 20 mg DAILY PO Last administered on 11/08/16 08:20; Start 11/05/16 at 09:00; Stop 11/08/16 at 20:24; Status DC Temazepam (Restoril) 15 mg HS PRN PO insomnia; Start 11/04/16 at 20:00; Stop 11/04/16 at 20:00; Status DC Temazepam (Restoril) 15 mg HS PRN PO INSOMNIA Last administered on 11/04/16 21: 07; Start 11/04/16 at 20:00; Stop 11/05/16 at 21:18; Status DC Midazolam HCl (Versed Inj) 5 mg STK-MED ONCE .ROUTE Last administered on 10:54; Start 11/05/16 at 10:48; Stop 11/05/16 at 10:49; Status DC Fentanyl Citrate (fentaNYL INJ) 250 mcg STK-MED ONCE .ROUTE Last administered on 11/05/16 10:54; Start 11/05/16 at 10:48; Stop 11/05/16 at 10:49; Status DC Heparin Sodium (Porcine) (*HEPARIN CENTRAL FLUSH PERIprocedural ONLY) 500 units STK-MED ONCE .ROUTE Last administered on 11/05/16 11:28; Start 11/05/16 at 10:55 ; Stop 11/05/16 at 10:56; Status DC Lidocaine/ Epinephrine (Xylocaine-Epi 1%-1:100,000 Inj) 20 ml STK-MED ONCE .ROUTE Last administered on 11/05/16 11:28; Start 11/05/16 at 10:55; Stop at 10:56; Status DC Fentanyl Citrate (fentaNYL INJ) 100 mcg STK-MED ONCE .ROUTE Last administered on 11/05/16 11:18; Start 11/05/16 at 11:18; Stop 11/05/16 at 11:19; Status DC Heparin Sodium (Porcine) (Heparin Central Flush) 500 units UNSCH IVF ; Start 11/05/16 at 11:45 IV Flush (NS Flush) 5 ml UNSCH PRN IVF SEE PROTOCOL Last administered on 09:21; Start 11/05/16 at 11:45 Heparin Sodium (Porcine) (Heparin Central Flush) 250 units UNSCH PRN IVF SEE PROTOCOL; Start 11/05/16 at 11:45 Temazepam (Restoril) 7.5 mg HS PRN PO INSOMNIA; Start 11/05/16 at 21:30; Status Cancel Temazepam (Restoril) 7.5 mg HS PRN PO INSOMNIA Last administered on 11/14/16 20:54; Start 11/05/16 at 21:45 Prednisone 10 mg 10 mg DAILY PO Last administered on 11/15/16 09:21; Start 08/16 at 09:00 Sodium Chloride (NS 250 ml Inj) 250 ml @ 0 mls/hr Q7D IV ; Start 11/15/16 at 15: 00; Stop 11/22/16 at 23:59 Granisetron HCl 1 mg 1 mg Q7D IV ; Start 11/15/16 at 14:00; Stop 11/22/16 at 15: 00 Dexamethasone Sodium Phosphate/ Sodium Chloride (Decadron Inj/NS Inj) 62.5 ml @ 250 mls/hr Q7D IV ; Start 11/15/16 at 14:00; Stop 11/22/16 at 15:00 Diphenhydramine HCl 25 mg 25 mg Q7D PO ; Start 11/15/16 at 14:00; Stop 11/22/16 at 14:01 Paclitaxel 76.5 mg/Sodium Chloride 262.75 ml @ 131.375 mls/hr Q7D IV ; Start at 15:00; Stop 11/22/16 at 16:59 Carboplatin/ Sodium Chloride (Paraplatin Inj/ NS 250 ml Inj) 250 ml @ 500 mls/ hr Q7D IV ; Start 11/15/16 at 17:00; Stop 11/22/16 at 17:29 A/P Assessment and Plan A/P Lung mass/pleural effusion with new diagnosis of NSCLC: CT chest reveals 4.3 x 7.1 x 8.2 cm mass, likely bronchogenic carcinoma with mediastinal and right hilar metastatic adenopathy; moderate pleural effusion with loculation laterally at the base. Patient is a smoker. -Brain MRI and bone scan, no metastatic disease noted on the scan. -CT abd/pel with solid mass right kidney -Pulmonology consultation. Dr. Calderón s/p bronchoscopy 11/02/16. Pathology favors squamous cell cancer. -Consulted radiation oncology status post simulation, started XRT 11/11. -Med Oncology consulted, Dr Braxton following, Port placed, planning for chemo starting today. -walk test was repeated on 11/12 and no hypoxia on ambulation; however had a O2 sat of 88% on 11/15; will probably need repeated walk test before discharge. COPD exacerbation/acute respiratory failure: Mild leukocytosis. Imaging as above. Majority of symptoms are likely due to the lung mass, also has wheezing on exam. ED note indicates patient's nebulizer machine was not working. -S/p IV rocephin and IV azithromycin, but due to methadone use, treated with doxycycline . -continue neb treatment. -continue prednisone -walk test to be repeated before discharge. Leukocytosis: likely due to steroid use. -Monitor CBC and watch for fevers Hypertension: -PRN clonidine ordered SBP>180 -Improved continue Norvasc Methadone: Confirmed methadone dose with clinic. -Continue 160 mg daily Insomnia: As needed Restoril DVT prevention: SCDs, out of bed Chana Westbrook MD Nov 15, 2016 13:16
--- NOTE | 2016-11-15 13:19 | PD.ONC.PN ---
Subjective Subjective Remarks Tmax 100.7 overnight. Patient resting comfortably. She is requesting some Tylenol for her headache and is also hungry for lunch. Objective Data Date Time Temp Pulse Resp B/P Pulse Ox O2 Delivery O2 Flow Rate FiO2 11/15/16 09:43 Room Air 11/15/16 09:40 93 21 11/15/16 08:00 98.3 94 16 125/75 90 11/15/16 05:48 98.3 11/15/16 04:00 100.7 98 20 134/93 95 11/15/16 02:51 95 Nasal Cannula 2.00 11/15/16 00:00 97.6 60 18 114/79 97 11/14/16 20:00 97.8 96 18 133/87 95 11/14/16 19:19 Room Air 11/14/16 19:19 93 11/14/16 16:00 96.9 74 16 120/80 94 11/15/16 11/15/16 11/15/16 07:00 15:00 23:00 Intake Total 480 ml Balance 480 ml Result Diagram: 11/15/16 0558 11/15/16 0558 Laboratory Results Laboratory Tests Test 11/15/16 05:58 White Blood Count 13.1 TH/MM3 Red Blood Count 4.40 MIL/MM3 Hemoglobin 12.6 GM/DL Hematocrit 39.0 % Mean Corpuscular Volume 88.7 FL Mean Corpuscular Hemoglobin 28.6 PG Mean Corpuscular Hemoglobin 32.3 % Concent Red Cell Distribution Width 13.5 % Platelet Count 243 TH/MM3 Mean Platelet Volume 7.9 FL Neutrophils (%) (Auto) 83.2 % Lymphocytes (%) (Auto) 5.2 % Monocytes (%) (Auto) 10.0 % Eosinophils (%) (Auto) 1.2 % Basophils (%) (Auto) 0.4 % Neutrophils # (Auto) 10.9 TH/MM3 Lymphocytes # (Auto) 0.7 TH/MM3 Monocytes # (Auto) 1.3 TH/MM3 Eosinophils # (Auto) 0.2 TH/MM3 Basophils # (Auto) 0.1 TH/MM3 CBC Comment DIFF FINAL Differential Comment Sodium Level 134 MEQ/L Potassium Level 4.0 MEQ/L Chloride Level 95 MEQ/L Carbon Dioxide Level 29.0 MEQ/L Anion Gap 10 MEQ/L Blood Urea Nitrogen 11 MG/DL Creatinine 0.66 MG/DL Estimat Glomerular Filtration 91 ML/MIN Rate Random Glucose 90 MG/DL Calcium Level 8.3 MG/DL Total Bilirubin 0.3 MG/DL Aspartate Amino Transf 13 U/L (AST/SGOT) Alanine Aminotransferase 19 U/L (ALT/SGPT) Alkaline Phosphatase 65 U/L Total Protein 6.2 GM/DL Albumin 2.8 GM/DL Administered Medications Medications (Trade) Dose Ordered Sig/Félix Route PRN Reason Start Time Stop Time Status Last Admin Dose Admin Budesonide/ Formoterol Fumarate (Symbicort 160-4.5 Inh) 2 puff Q12HR INH 10/30/16 21:00 11/15/16 09:22 Acetaminophen (Tylenol) 650 mg Q4H PRN PO HEADACHE /FEVER 11/01/16 16:45 11/15/16 02:50 Methadone HCl (Dolophine) 160 mg DAILY@06 PO 11/03/16 06:00 11/15/16 05:44 Ondansetron HCl (Zofran Inj) 4 mg Q6H PRN IV PUSH NAUSEA 11/03/16 08:30 11/15/16 09:21 Enalaprilat (Vasotec Inj) 1.25 mg Q6H PRN IV SBP> OR = 180, DBP> OR = 100 11/03/16 14:15 11/04/16 00:46 Clonidine (Catapres) 0.1 mg Q6H PRN PO SBP> OR = 180, DBP> OR = 100 11/03/16 14:15 11/04/16 15:38 Promethazine HCl (Phenergan Inj) 12.5 mg Q6H PRN IM nausea 11/04/16 02:00 11/05/16 21:00 Amlodipine Besylate (Norvasc) 2.5 mg DAILY PO 11/04/16 09:00 11/15/16 09:21 IV Flush (NS Flush) 5 ml UNSCH PRN IVF SEE PROTOCOL 11/05/16 11:45 11/15/16 09:21 Temazepam (Restoril) 7.5 mg HS PRN PO INSOMNIA 11/05/16 21:45 11/14/16 20:54 Prednisone (Deltasone) 10 mg DAILY PO 11/09/16 09:00 11/15/16 09:21 Objective Remarks GENERAL: Middle aged female, sitting up in bed, in nad. SKIN: Warm and dry. HEAD: Normocephalic. EYES: No injection or drainage. NECK: Supple, trachea midline. CARDIOVASCULAR: Regular rate and rhythm RESPIRATORY: bases diminished. occasional rhonchi GASTROINTESTINAL: Abdomen soft, non-tender, nondistended. EXTREMITIES: No cyanosis. NEUROLOGICAL: AO x 3. normal speech. appropriate. moving extremities. Assessment/Plan Problem List: (1) Lung mass Status: Acute Plan: 11/15/16: Carboplatin + taxol weekly, C1 today. 11/12/16: XRT started yesterday. Plan to start chemo Tuesday if patient still inpatient. (could be done outpatient if case management can arrange safe discharge) 11/11/16: no new pulmonary symptoms. Await radiation. Plan to give chemo once she starts XRT. This can be done as outpt. 11/09/16: per Henri Yu, a tissue biopsy would be very difficulty/risky. will cancel tissue biopsy and proceed with treatment on basis of pathology. treatment can be started on an outpatient basis. awaiting radiation oncology to set up treatment in clinic. 11/08/16: Will speak with radiologist. Attempt to get a tissue biopsy of lung mass prior to initiating chemotherapy/radiation. 11/05/16: port placement today 11/04/16: pathology pending. plan to place port tomorrow. 11/03/16 Bronchoscopy showed a friable bleeding mass in RLL bronchus. It was actively bleeding. Cytology pending. 11/02/16: having bronch/biopsy at 11AM today -- Bronchoscopy washings on 11/03/16 came back + for malignant cells. Favoring squamous cell carcinoma. It would be ideal to confirm this by a tissue sample prior to initiating treatment. History/Workup --Lung mass with mediastinal adenopathy most consistent with primary bronchogenic carcinoma. --history of tobacco use and chronic obstructive pulmonary disease. --has had worsening shortness of breath and a nonproductive cough over the last six months. --developing right chest pain two weeks ago. --CT chest: large right hilar mass that extended to the infrahilar region causing collapse of the right lower lobe.4.3 x 7.0 x 8.2 cm. also a 2.8 cm subcarinal and 2.7 cm right suprahilar and 1.7 cm pretracheal adenopathy. --CT ab/pelvis: no mets disease. --bone scan: no mets --brain MRI: no mets --If her disease is localized to the thorax we could treat her with concurrent radiation and chemotherapy; however final treatment recommendations will depend on the tissue diagnosis Assessment 61y/o female with stage IIIa NSCLC h/o Chronic obstructive pulmonary disease. Hypertension. Cervical precancerous lesion. Seizure twice, the last was 5 years ago. 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 Plan 1. chemotherapy today, then clear for discharge. 2. continue XRT today. 3. I discussed code status with the patient. She states she would not want to be intubated for any amount of time, even if it was reversible. she would like compressions, shock and ACLS drugs. I have altered her code status accordingly. 4. we discussed healthcare surrogate. Should like one of her sons to be her healthcare surrogate. I left the form for her to fill out and will follow up tomorrow, as she is heading to radiation at the conclusion of my exam. Attending Statement The exam, history, and the medical decision-making described in the above note were completed with the assistance of the mid-level provider. I reviewed and agree with the findings presented. I attest that I had a [id number] encounter with the patient on the same day, and personally performed and documented my assessment and findings in the medical record. Had low grade fever overnight but has resolved. She has no new symptoms. Cough is stable. No CP. Plan to give carboplatin and Taxol today. Continue XRT. Kyra Pearce Nov 15, 2016 13:19 Harshil Braxton MD Nov 15, 2016 14:47
[2016-11-15] MEDS ORDERED: GRANISETRON HCL 1 MG/ML VIAL IV SCH (14:00)
[2016-11-15] MEDS ORDERED: SODIUM CHLORIDE 0.9% IV SCH (14:00)
[2016-11-15] MEDS ORDERED: diphenhydrAMINE HCL 25 MG CAP PO SCH (14:00)
[2016-11-15] MEDS ORDERED: DEXAMETHASONE IV SCH (14:00)
[2016-11-15] MEDS ORDERED: PACLITAXEL IV SCH (15:00)
[2016-11-15] MEDS ORDERED: WATER IV SCH ×4 (15:00→15:15)
[2016-11-15] MEDS ORDERED: SODIUM CHLOR 0.9% IV SCH ×2 (15:00→17:00)
[2016-11-15] MEDS ORDERED: SODIUM CHLOR 0.9% 250 ML INJ 250 ML IV SCH (15:00)
[2016-11-15] MEDS ORDERED: FAMOTIDINE IV SCH ×4 (15:00→15:15)
[2016-11-15] MEDS ORDERED: DEXTROSE 5% IV SCH ×4 (15:00→15:15)
[2016-11-15] MEDS ORDERED: CARBOPLATIN IV SCH (17:00)
[2016-11-15] MEDS: TEMAZEPAM 7.5 MG CAP PO PRN (21:06)
[2016-11-15] MEDS: PROMETHAZINE INJ 25 MG/ML VIAL IM PRN (22:31)
[2016-11-15] MEDS: LACTATED RINGER'S 1000 ML IV SCH (23:45)
[2016-11-16] VITALS (8 sets, daily range): BP systolic 117–154; BP diastolic 81–102; PULSE 81–96; RESP 16–18; TEMP 96.3–98.8; O2SAT 90–99
[2016-11-16] MEDS: ONDANSETRON HCL 4 MG/2 ML VIAL IV PUSH PRN ×2 (04:38→21:56)
[2016-11-16] MEDS: METHADONE HCL 10 MG TAB PO SCH (05:30)
[2016-11-16 06:21] LABS: AUTOMATED NEUTROPHIL # 7.6 TH/MM3 (1.8-7.7); BASOPHIL % 0.2 % (0.0-2.0); HEMATOCRIT 37.5 % (35.0-46.0); HEMO FLAGS DIFF FINAL; LYMPH % 2.7 % (9.0-44.0); LYMPHOCYTE # 0.2 TH/MM3 (1.0-4.8); MEAN CELL VOLUME 88.9 FL (80.0-100.0); MEAN CORPUSCULAR HEMOGLOBIN 29.2 PG (27.0-34.0); MEAN CORPUSCULAR HGB CONC 32.9 % (32.0-36.0); MONO % 2.3 % (0.0-8.0); NEUT % 94.8 % (16.0-70.0); PLATELET COUNT 297 TH/MM3 (150-450); RED BLOOD COUNT 4.22 MIL/MM3 (4.00-5.30); RED CELL DISTRIBUTION WIDTH 13.1 % (11.6-17.2)
[2016-11-16 06:47] LABS: ALKALINE PHOSPHATASE 60 U/L (45-117); ALT (GPT) 19 U/L (10-53); ANION GAP 7 MEQ/L (5-15); AST (GOT) 10 U/L (15-37); BICARBONATE 31.6 MEQ/L (21.0-32.0); BLOOD UREA NITROGEN 13 MG/DL (7-18); CHLORIDE 93 MEQ/L (98-107); GLOMERULAR FILTRATION RATE 119 ML/MIN (>89); POTASSIUM 4.3 MEQ/L (3.5-5.1); SODIUM (NA) 132 MEQ/L (136-145); TOTAL BILIRUBIN ADULT 0.3 MG/DL (0.2-1.0)
[2016-11-16] MEDS: amLODIPine BESYLATE 5 MG TAB PO SCH (09:39)
[2016-11-16] MEDS: predniSONE 10 MG TAB PO SCH (09:39)
[2016-11-16] MEDS: BUDESONIDE-FORMOTEROL 160/4.5 MCG INHALER INH SCH ×2 (09:39→19:55)
--- NOTE | 2016-11-16 12:09 | PD.ONC.PN ---
Subjective Subjective Remarks Afebrile overnight. Patient resting comfortably without complaint. Tolerated chemotherapy yesterday. Objective Data Date Time Temp Pulse Resp B/P Pulse Ox O2 Delivery O2 Flow Rate FiO2 11/16/16 10:09 98 Nasal Cannula 2.00 11/16/16 04:00 96.3 88 18 154/102 99 11/16/16 00:00 97.1 81 16 136/81 95 11/15/16 22:32 96 Nasal Cannula 2.00 11/15/16 20:55 98.2 93 18 154/92 94 11/15/16 16:00 98.7 97 16 110/76 93 11/15/16 12:00 99.1 94 16 121/78 94 Result Diagram: 11/16/16 0500 11/16/16 0500 Laboratory Results Laboratory Tests Test 11/16/16 05:00 White Blood Count 8.0 TH/MM3 Red Blood Count 4.22 MIL/MM3 Hemoglobin 12.3 GM/DL Hematocrit 37.5 % Mean Corpuscular Volume 88.9 FL Mean Corpuscular Hemoglobin 29.2 PG Mean Corpuscular Hemoglobin 32.9 % Concent Red Cell Distribution Width 13.1 % Platelet Count 297 TH/MM3 Mean Platelet Volume 7.5 FL Neutrophils (%) (Auto) 94.8 % Lymphocytes (%) (Auto) 2.7 % Monocytes (%) (Auto) 2.3 % Eosinophils (%) (Auto) 0.0 % Basophils (%) (Auto) 0.2 % Neutrophils # (Auto) 7.6 TH/MM3 Lymphocytes # (Auto) 0.2 TH/MM3 Monocytes # (Auto) 0.2 TH/MM3 Eosinophils # (Auto) 0.0 TH/MM3 Basophils # (Auto) 0.0 TH/MM3 CBC Comment DIFF FINAL Differential Comment Sodium Level 132 MEQ/L Potassium Level 4.3 MEQ/L Chloride Level 93 MEQ/L Carbon Dioxide Level 31.6 MEQ/L Anion Gap 7 MEQ/L Blood Urea Nitrogen 13 MG/DL Creatinine 0.52 MG/DL Estimat Glomerular Filtration 119 ML/MIN Rate Random Glucose 116 MG/DL Calcium Level 8.7 MG/DL Total Bilirubin 0.3 MG/DL Aspartate Amino Transf 10 U/L (AST/SGOT) Alanine Aminotransferase 19 U/L (ALT/SGPT) Alkaline Phosphatase 60 U/L Total Protein 6.7 GM/DL Albumin 2.6 GM/DL Administered Medications Medications (Trade) Dose Ordered Sig/Félix Route PRN Reason Start Time Stop Time Status Last Admin Dose Admin Budesonide/ Formoterol Fumarate (Symbicort 160-4.5 Inh) 2 puff Q12HR INH 10/30/16 21:00 11/16/16 09:39 Acetaminophen (Tylenol) 650 mg Q4H PRN PO HEADACHE /FEVER 11/01/16 16:45 11/15/16 13:04 Methadone HCl (Dolophine) 160 mg DAILY@06 PO 11/03/16 06:00 11/16/16 05:30 Ondansetron HCl (Zofran Inj) 4 mg Q6H PRN IV PUSH NAUSEA 11/03/16 08:30 11/16/16 04:38 Enalaprilat (Vasotec Inj) 1.25 mg Q6H PRN IV SBP> OR = 180, DBP> OR = 100 11/03/16 14:15 11/04/16 00:46 Clonidine (Catapres) 0.1 mg Q6H PRN PO SBP> OR = 180, DBP> OR = 100 11/03/16 14:15 11/04/16 15:38 Promethazine HCl (Phenergan Inj) 12.5 mg Q6H PRN IM nausea 11/04/16 02:00 11/15/16 22:31 Amlodipine Besylate (Norvasc) 2.5 mg DAILY PO 11/04/16 09:00 11/16/16 09:39 IV Flush (NS Flush) 5 ml UNSCH PRN IVF SEE PROTOCOL 11/05/16 11:45 11/15/16 09:21 Temazepam (Restoril) 7.5 mg HS PRN PO INSOMNIA 11/05/16 21:45 11/15/16 21:06 Prednisone 10 mg 10 mg DAILY PO 11/09/16 09:00 11/16/16 09:39 Sodium Chloride (NS 250 ml Inj) 250 ml @ 0 mls/hr Q7D IV 11/15/16 15:00 11/22/16 23:59 11/15/16 17:25 Granisetron HCl 1 mg 1 mg Q7D IV 11/15/16 14:00 11/22/16 15:00 11/15/16 16:00 Dexamethasone Sodium Phosphate/ Sodium Chloride (Decadron Inj/NS Inj) 62.5 ml @ 250 mls/hr Q7D IV 11/15/16 14:00 11/22/16 15:00 11/15/16 16:24 Diphenhydramine HCl 25 mg 25 mg Q7D PO 11/15/16 14:00 11/22/16 14:01 11/15/16 16:00 Paclitaxel 76.5 mg/Sodium Chloride 262.75 ml @ 131.375 mls/hr Q7D IV 11/15/16 15:00 11/22/16 16:59 11/15/16 17:24 Carboplatin 232 mg/Sodium Chloride 250 ml @ 500 mls/hr Q7D IV 11/15/16 17:00 11/22/16 17:29 11/15/16 21:06 Famotidine/ Dextrose (Pepcid Inj/D5W Inj) 102 ml @ 408 mls/hr Q7D IV 11/15/16 15:15 11/22/16 15:14 11/15/16 16:01 Objective Remarks GENERAL: Middle aged female, sitting up in bed, in nad. SKIN: Warm and dry. HEAD: Normocephalic. EYES: No injection or drainage. NECK: Supple, trachea midline. CARDIOVASCULAR: Regular rate and rhythm RESPIRATORY: breath sounds are diminished in the right lower lobe. anterior florez clear. GASTROINTESTINAL: Abdomen soft, non-tender, nondistended. EXTREMITIES: No cyanosis. NEUROLOGICAL: AO x3. normal speech. moving all extremities. Assessment/Plan Problem List: (1) Lung mass Status: Acute Plan: 11/16/16: clear for discharge. appointment for follow up is 11/30/16 in clinic. 11/15/16: Carboplatin + taxol weekly, C1 today. 11/12/16: XRT started yesterday. Plan to start chemo Tuesday if patient still inpatient. (could be done outpatient if case management can arrange safe discharge) 11/11/16: no new pulmonary symptoms. Await radiation. Plan to give chemo once she starts XRT. This can be done as outpt. 11/09/16: per Henri Yu, a tissue biopsy would be very difficulty/risky. will cancel tissue biopsy and proceed with treatment on basis of pathology. treatment can be started on an outpatient basis. awaiting radiation oncology to set up treatment in clinic. 11/08/16: Will speak with radiologist. Attempt to get a tissue biopsy of lung mass prior to initiating chemotherapy/radiation. 11/05/16: port placement today 11/04/16: pathology pending. plan to place port tomorrow. 11/03/16 Bronchoscopy showed a friable bleeding mass in RLL bronchus. It was actively bleeding. Cytology pending. 11/02/16: having bronch/biopsy at 11AM today -- Bronchoscopy washings on 11/03/16 came back + for malignant cells. Favoring squamous cell carcinoma. It would be ideal to confirm this by a tissue sample prior to initiating treatment. History/Workup --Lung mass with mediastinal adenopathy most consistent with primary bronchogenic carcinoma. --history of tobacco use and chronic obstructive pulmonary disease. --has had worsening shortness of breath and a nonproductive cough over the last six months. --developing right chest pain two weeks ago. --CT chest: large right hilar mass that extended to the infrahilar region causing collapse of the right lower lobe.4.3 x 7.0 x 8.2 cm. also a 2.8 cm subcarinal and 2.7 cm right suprahilar and 1.7 cm pretracheal adenopathy. --CT ab/pelvis: no mets disease. --bone scan: no mets --brain MRI: no mets --If her disease is localized to the thorax we could treat her with concurrent radiation and chemotherapy; however final treatment recommendations will depend on the tissue diagnosis Assessment 61y/o female with stage IIIa NSCLC h/o Chronic obstructive pulmonary disease. Hypertension. Cervical precancerous lesion. Seizure twice, the last was 5 years ago. 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 Plan 1. clear for discharge. 2. continue XRT Attending Statement The exam, history, and the medical decision-making described in the above note were completed with the assistance of the mid-level provider. I reviewed and agree with the findings presented. I attest that I had a [id number] encounter with the patient on the same day, and personally performed and documented my assessment and findings in the medical record. Tolerated chemotherapy well. No new pulmonary symptoms. Continue XRT. SHe will f/u oncology clinic for weekly chemotherapy. Can be d/c from oncology standpoint. Kyra Pearce Nov 16, 2016 12:09 Harshil Braxton MD Nov 16, 2016 13:24
[2016-11-16] MEDS: PROMETHAZINE INJ 25 MG/ML VIAL IM PRN ×2 (13:10→19:54)
[2016-11-16] MEDS: ACETAMINOPHEN 325 MG TAB PO PRN (13:15)
[2016-11-16] MEDS: TEMAZEPAM 7.5 MG CAP PO PRN (19:58)
--- NOTE | 2016-11-16 20:50 | HHI.PR ---
Subjective Remarks Follow up for non-small cell lung cancer currently on chemo and radiation. Ms. Ford is doing well. Denies any chest pain, shortness of breath, fever, chills. She is concerned about not getting weekly chemotherapy once she is discharged. I reassured her that Oncology will make sure she received proper treatments. I discussed with Oncology PA as well. She is scheduled for radiation today. Objective Vitals Vital Signs Date Time Temp Pulse Resp B/P Pulse Ox O2 Delivery O2 Flow Rate FiO2 11/16/16 20:00 98.1 96 18 126/92 92 11/16/16 16:00 98.8 91 16 117/86 91 11/16/16 12:31 98.8 93 16 146/101 90 11/16/16 10:09 98 Nasal Cannula 2.00 11/16/16 09:35 Room Air 11/16/16 08:00 98.5 85 16 128/83 94 11/16/16 04:00 96.3 88 18 154/102 99 11/16/16 00:00 97.1 81 16 136/81 95 11/15/16 22:32 96 Nasal Cannula 2.00 11/15/16 20:55 98.2 93 18 154/92 94 I/O 11/15/16 11/15/16 11/15/16 11/16/16 11/16/16 11/16/16 07:00 15:00 23:00 07:00 15:00 23:00 Intake Total 480 ml 240 ml 600 ml 480 ml 600 ml Balance 480 ml 240 ml 600 ml 480 ml 600 ml Intake Oral 480 ml 240 ml 600 ml 480 ml 600 ml # Voids 3 2 2 4 Result Diagram: 11/16/16 0500 11/16/16 0500 Imaging Last Impressions Port Line Insertion 11/05/16 0600 Signed Impressions: Service Date/Time: Saturday, November 05, 2016 10:55 - CONCLUSION: Uncomplicated ultrasound and fluoroscopic guided implanted central venous port catheter placement as described in detail above. An 8 [place] [employer] port was placed. Stevie Yu MD Chest X-Ray 11/02/16 0000 Signed Impressions: Service Date/Time: Wednesday, November 02, 2016 13:04 - CONCLUSION: 1. No pneumothorax, status post bronchoscopy. Ramiro Neves MD Chest Ultrasound 11/02/16 0000 Signed Impressions: Service Date/Time: Wednesday, November 02, 2016 22:31 - CONCLUSION: Dense consolidation of the right lower lobe. No pleural fluid seen. Mirza Donnelly Jr., MD Brain MRI 11/01/16 0000 Signed Impressions: Service Date/Time: Tuesday, November 01, 2016 15:15 - CONCLUSION: 1. No metastatic disease or other acute intracranial abnormality. 2. Mild, chronic white matter changes. 3. Chronically deformed left globe. Omar Venegas MD Bone Scan Nuclear Medicine 11/01/16 0000 Signed Impressions: Service Date/Time: Tuesday, November 01, 2016 12:02 - CONCLUSION: No definite scintigraphic evidence of osseous metastatic disease. Anup Bowman MD Abdomen/Pelvis CT 11/01/16 0000 Signed Impressions: Service Date/Time: Wednesday, November 02, 2016 20:35 - CONCLUSION: Slightly greater than 4.5 cm solid mass involving the lower pole of the right kidney. No other evidence of neoplastic disease in the abdomen or pelvis. Omar Arnold MD Chest CT 10/30/16 0000 Signed Impressions: Service Date/Time: Sunday, October 30, 2016 16:20 - CONCLUSION: 1. Large right hilar/infrahilar mass compatible with a central primary bronchogenic carcinoma. 2. Mediastinal and right hilar metastatic adenopathy. 3. Hepatic cysts. No metastatic disease demonstrated in the visualized upper abdomen or of the visualized osseous structures. Omar Venegas MD ADDENDUM: A right chest ultrasound was done a couple hours after the CT showing densely consolidated right lung base without perceptible pleural fluid. The noncontrast CT clearly shows heterogeneous attenuation of the right base, and in conjunction with the ultrasound must represent different age or degree of parenchymal consolidation or a combination of atelectasis and pneumonia. Omar Venegas MD Objective Remarks GENERAL: AOX3, NAD. SKIN: Warm and dry. HEAD: Normocephalic. EYES: No scleral icterus. No injection or drainage. NECK: Supple, trachea midline. No JVD or lymphadenopathy. CARDIOVASCULAR: Regular rate and rhythm without murmurs, gallops, or rubs. RESPIRATORY: Breath sounds equal bilaterally. No accessory muscle use. GASTROINTESTINAL: Abdomen soft, non-tender, nondistended. MUSCULOSKELETAL: No cyanosis, or edema. BACK: Nontender without obvious deformity. No CVA tenderness. Procedures Bronchoscopy, port placement A/P Problem List: (1) SIRS (systemic inflammatory response syndrome) ICD Code: R65.10 Status: Acute (2) Lung mass ICD Code: R91.8 Status: Acute (3) Pleural effusion ICD Code: J90 Status: Acute (4) Acute respiratory failure ICD Code: J96.00 Status: Acute (5) COPD exacerbation ICD Code: J44.1 Status: Acute (6) Methadone maintenance therapy patient ICD Code: F11.20 Status: Acute (7) Leukocytosis ICD Code: D72.829 Status: Acute Assessment and Plan Ms. Ford is a 61 year old female with a history of tobacco abuse, COPD who was admitted due to worsening shortness of breath. She also noticed some blood in her sputum. Work up indicated lung mass with mediastinal adenopathy consistent with bronchogenic carcinoma. Bronch washing on 11/03/2016 showed malignant cells favoring squamous cell carcinoma. No mets on CT abd/pelvis, bone scan or MRI brain. She was diagnosed with stage IIIa NSLCC. She was then evaluated for chemo and radiation. - Stage IIIA Non-small cell lung cancer. - CT chest reveals 4.3 x 7.1 x 8.2 cm mass, likely bronchogenic carcinoma with mediastinal and right hilar metastatic adenopathy; moderate pleural effusion with loculation laterally at the base. - Brain MRI and bone scan, no metastatic disease noted on the scan. - CT abd/pel with solid mass right kidney - Pulmonology following. Dr. Calderón s/p bronchoscopy 11/02/16. Pathology favors squamous cell cancer. - Consulted radiation oncology status post simulation, started XRT 11/11. - Med Oncology consulted, Dr. Braxton following, Port placed. Patient is receiving chemo. - COPD exacerbation/acute respiratory failure - Mild leukocytosis. Imaging as above. Majority of symptoms are likely due to the lung mass, also has wheezing on exam. - ED note indicates patient's nebulizer machine was not working. - s/p IV rocephin and IV azithromycin and later treated with doxycycline . - continue neb treatment. - continue prednisone - Patient is currently on room air. - Hypertension: - PRN clonidine ordered SBP>180 - Improved continue Norvasc - Chronic pain - Methadone: Confirmed methadone dose with clinic. - Continue 160 mg daily Alternate Code. SCDs. Discharge plan: Will place discharge orders. However, travel arrangements need to be sorted out for patient to continue to receive radiation therapy. Discussed with caser up. Once travel arrangements are made, patient is ready to be discharged. Oncology cleared for discharge on 11/16/2016. Problem Qualifiers (1) Acute respiratory failure: Qualified Code: J96.01 - Acute respiratory failure with hypoxia Karina Harris DO Nov 16, 2016 20:50 Karina Harris DO Nov 16, 2016 20:50
[2016-11-16] MEDS: LACTATED RINGER'S 1000 ML IV SCH (23:45)
[2016-11-17] VITALS: BP 135/86; PULSE 89; RESP 16; TEMP 97.7; O2SAT 95
[2016-11-17] MEDS: ACETAMINOPHEN 325 MG TAB PO PRN (00:34)
[2016-11-17 04:00] VITALS: BP 113/79; PULSE 85; RESP 18; TEMP 97.2; O2SAT 98
[2016-11-17] MEDS: METHADONE HCL 10 MG TAB PO SCH (05:18)
[2016-11-17] MEDS: ONDANSETRON HCL 4 MG/2 ML VIAL IV PUSH PRN ×3 (05:19→18:22)
[2016-11-17 08:30] VITALS: O2SAT 94
[2016-11-17] MEDS: predniSONE 10 MG TAB PO SCH (09:14)
[2016-11-17] MEDS: SODIUM CHLORIDE 0.9% FLUSH 5 ML FLUSH IVF PRN (09:14)
[2016-11-17] MEDS: PROMETHAZINE INJ 25 MG/ML VIAL IM PRN ×2 (09:15→15:09)
[2016-11-17] MEDS: BUDESONIDE-FORMOTEROL 160/4.5 MCG INHALER INH SCH (09:18)
--- NOTE | 2016-11-17 09:44 | PD.ONC.PN ---
Subjective Subjective Remarks Afebrile overnight. Patient had a hard time sleeping last night. She feels better today. Objective Data Date Time Temp Pulse Resp B/P Pulse Ox O2 Delivery O2 Flow Rate FiO2 11/17/16 04:00 97.2 85 18 113/79 98 11/17/16 00:00 97.7 89 16 135/86 95 11/16/16 20:42 95 Nasal Cannula 11/16/16 20:15 92 Room Air 11/16/16 20:00 98.1 96 18 126/92 92 11/16/16 16:00 98.8 91 16 117/86 91 11/16/16 12:31 98.8 93 16 146/101 90 11/16/16 10:09 98 Nasal Cannula 2.00 Result Diagram: 11/16/16 0500 11/16/16 0500 Administered Medications Medications (Trade) Dose Ordered Sig/Félix Route PRN Reason Start Time Stop Time Status Last Admin Dose Admin Budesonide/ Formoterol Fumarate (Symbicort 160-4.5 Inh) 2 puff Q12HR INH 10/30/16 21:00 11/17/16 09:18 Acetaminophen (Tylenol) 650 mg Q4H PRN PO HEADACHE /FEVER 11/01/16 16:45 11/17/16 00:34 Methadone HCl (Dolophine) 160 mg DAILY@06 PO 11/03/16 06:00 11/17/16 05:18 Ondansetron HCl (Zofran Inj) 4 mg Q6H PRN IV PUSH NAUSEA 11/03/16 08:30 11/17/16 05:19 Enalaprilat (Vasotec Inj) 1.25 mg Q6H PRN IV SBP> OR = 180, DBP> OR = 100 11/03/16 14:15 11/04/16 00:46 Clonidine (Catapres) 0.1 mg Q6H PRN PO SBP> OR = 180, DBP> OR = 100 11/03/16 14:15 11/04/16 15:38 Promethazine HCl (Phenergan Inj) 12.5 mg Q6H PRN IM nausea 11/04/16 02:00 11/17/16 09:15 Amlodipine Besylate (Norvasc) 2.5 mg DAILY PO 11/04/16 09:00 11/16/16 09:39 IV Flush (NS Flush) 5 ml UNSCH PRN IVF SEE PROTOCOL 11/05/16 11:45 11/17/16 09:14 Temazepam (Restoril) 7.5 mg HS PRN PO INSOMNIA 11/05/16 21:45 11/16/16 19:58 Prednisone 10 mg 10 mg DAILY PO 11/09/16 09:00 11/17/16 09:14 Sodium Chloride (NS 250 ml Inj) 250 ml @ 0 mls/hr Q7D IV 11/15/16 15:00 11/22/16 23:59 11/15/16 17:25 Granisetron HCl 1 mg 1 mg Q7D IV 11/15/16 14:00 11/22/16 15:00 11/15/16 16:00 Dexamethasone Sodium Phosphate/ Sodium Chloride (Decadron Inj/NS Inj) 62.5 ml @ 250 mls/hr Q7D IV 11/15/16 14:00 11/22/16 15:00 11/15/16 16:24 Diphenhydramine HCl 25 mg 25 mg Q7D PO 11/15/16 14:00 11/22/16 14:01 11/15/16 16:00 Paclitaxel 76.5 mg/Sodium Chloride 262.75 ml @ 131.375 mls/hr Q7D IV 11/15/16 15:00 11/22/16 16:59 11/15/16 17:24 Carboplatin 232 mg/Sodium Chloride 250 ml @ 500 mls/hr Q7D IV 11/15/16 17:00 11/22/16 17:29 11/15/16 21:06 Famotidine/ Dextrose (Pepcid Inj/D5W Inj) 102 ml @ 408 mls/hr Q7D IV 11/15/16 15:15 11/22/16 15:14 11/15/16 16:01 Objective Remarks GENERAL: Middle aged female, sitting up in bed, eating breakfast. SKIN: Warm and dry. HEAD: Normocephalic. EYES: No injection or drainage. NECK: Supple, trachea midline. CARDIOVASCULAR: Regular rate and rhythm RESPIRATORY: breath sounds are diminished in the right lower lobe. anterior florez clear. GASTROINTESTINAL: Abdomen soft, non-tender, nondistended. EXTREMITIES: No cyanosis. NEUROLOGICAL: alert and oriented, normal speech. moving all extremities. Assessment/Plan Problem List: (1) Lung mass Status: Acute Plan: 11/17/16: clear for discharge. 11/15/16: Carboplatin + taxol weekly, C1 today. 11/12/16: XRT started yesterday. Plan to start chemo Tuesday if patient still inpatient. (could be done outpatient if case management can arrange safe discharge) 11/11/16: no new pulmonary symptoms. Await radiation. Plan to give chemo once she starts XRT. This can be done as outpt. 11/09/16: per Henri Yu, a tissue biopsy would be very difficulty/risky. will cancel tissue biopsy and proceed with treatment on basis of pathology. treatment can be started on an outpatient basis. awaiting radiation oncology to set up treatment in clinic. 11/08/16: Will speak with radiologist. Attempt to get a tissue biopsy of lung mass prior to initiating chemotherapy/radiation. 11/05/16: port placement today 11/04/16: pathology pending. plan to place port tomorrow. 11/03/16 Bronchoscopy showed a friable bleeding mass in RLL bronchus. It was actively bleeding. Cytology pending. 11/02/16: having bronch/biopsy at 11AM today -- Bronchoscopy washings on 11/03/16 came back + for malignant cells. Favoring squamous cell carcinoma. It would be ideal to confirm this by a tissue sample prior to initiating treatment. History/Workup --Lung mass with mediastinal adenopathy most consistent with primary bronchogenic carcinoma. --history of tobacco use and chronic obstructive pulmonary disease. --has had worsening shortness of breath and a nonproductive cough over the last six months. --developing right chest pain two weeks ago. --CT chest: large right hilar mass that extended to the infrahilar region causing collapse of the right lower lobe.4.3 x 7.0 x 8.2 cm. also a 2.8 cm subcarinal and 2.7 cm right suprahilar and 1.7 cm pretracheal adenopathy. --CT ab/pelvis: no mets disease. --bone scan: no mets --brain MRI: no mets --If her disease is localized to the thorax we could treat her with concurrent radiation and chemotherapy; however final treatment recommendations will depend on the tissue diagnosis Assessment 61y/o female with stage IIIa NSCLC h/o Chronic obstructive pulmonary disease. Hypertension. Cervical precancerous lesion. Seizure twice, the last was 5 years ago. 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 Plan 1. clear for discharge. 2. continue XRT 3. follow up in clinic for chemo next Tuesday Attending Statement The exam, history, and the medical decision-making described in the above note were completed with the assistance of the mid-level provider. I reviewed and agree with the findings presented. I attest that I had a [id number] encounter with the patient on the same day, and personally performed and documented my assessment and findings in the medical record. No new pulmonary symptoms. Tolerated treatment well. Continue XRT. Told pt to f/u next week at oncology clinic to continue chemotherapy. Kyra Pearce Nov 17, 2016 09:44 Harshil Braxton MD Nov 17, 2016 12:23
[2016-11-17 11:50] VITALS: BP 119/73; PULSE 94; RESP 20; TEMP 98.6; O2SAT 93
[2016-11-17] MEDS: amLODIPine BESYLATE 5 MG TAB PO SCH (12:16)
--- NOTE | 2016-11-17 12:44 | HHI.PR ---
Subjective Remarks taking po well denies any pain, nausea or vomiting Objective Vitals Vital Signs Date Time Temp Pulse Resp B/P Pulse Ox O2 Delivery O2 Flow Rate FiO2 11/17/16 11:50 98.6 94 20 119/73 93 11/17/16 09:05 94 Room Air 11/17/16 08:30 94 21 11/17/16 04:00 97.2 85 18 113/79 98 11/17/16 00:00 97.7 89 16 135/86 95 11/16/16 20:42 95 Nasal Cannula 11/16/16 20:15 92 Room Air 11/16/16 20:00 98.1 96 18 126/92 92 11/16/16 16:00 98.8 91 16 117/86 91 I/O 11/16/16 11/16/16 11/16/16 11/17/16 11/17/16 11/17/16 07:00 15:00 23:00 07:00 15:00 23:00 Intake Total 480 ml 600 ml 600 ml Balance 480 ml 600 ml 600 ml Intake Oral 480 ml 600 ml 600 ml # Voids 2 4 1 Result Diagram: 11/16/16 0500 11/16/16 0500 Imaging Last Impressions Port Line Insertion 11/05/16 0600 Signed Impressions: Service Date/Time: Saturday, November 05, 2016 10:55 - CONCLUSION: Uncomplicated ultrasound and fluoroscopic guided implanted central venous port catheter placement as described in detail above. An 8 [place] Power port was placed. Stevie Yu MD Chest X-Ray 11/02/16 0000 Signed Impressions: Service Date/Time: Wednesday, November 02, 2016 13:04 - CONCLUSION: 1. No pneumothorax, status post bronchoscopy. Ramiro Neves MD Chest Ultrasound 11/02/16 0000 Signed Impressions: Service Date/Time: Wednesday, November 02, 2016 22:31 - CONCLUSION: Dense consolidation of the right lower lobe. No pleural fluid seen. Mirza Donnelly Jr., MD Brain MRI 11/01/16 0000 Signed Impressions: Service Date/Time: Tuesday, November 01, 2016 15:15 - CONCLUSION: 1. No metastatic disease or other acute intracranial abnormality. 2. Mild, chronic white matter changes. 3. Chronically deformed left globe. Omar Venegas MD Bone Scan Nuclear Medicine 11/01/16 0000 Signed Impressions: Service Date/Time: Tuesday, November 01, 2016 12:02 - CONCLUSION: No definite scintigraphic evidence of osseous metastatic disease. Anup Bowman MD Abdomen/Pelvis CT 11/01/16 0000 Signed Impressions: Service Date/Time: Wednesday, November 02, 2016 20:35 - CONCLUSION: Slightly greater than 4.5 cm solid mass involving the lower pole of the right kidney. No other evidence of neoplastic disease in the abdomen or pelvis. Omar Arnold MD Chest CT 10/30/16 0000 Signed Impressions: Service Date/Time: Sunday, October 30, 2016 16:20 - CONCLUSION: 1. Large right hilar/infrahilar mass compatible with a central primary bronchogenic carcinoma. 2. Mediastinal and right hilar metastatic adenopathy. 3. Hepatic cysts. No metastatic disease demonstrated in the visualized upper abdomen or of the visualized osseous structures. Omar Venegas MD ADDENDUM: A right chest ultrasound was done a couple hours after the CT showing densely consolidated right lung base without perceptible pleural fluid. The noncontrast CT clearly shows heterogeneous attenuation of the right base, and in conjunction with the ultrasound must represent different age or degree of parenchymal consolidation or a combination of atelectasis and pneumonia. Omar Venegas MD Objective Remarks anicteric lungs- decrased breath sounds, no rales, or wheezes regular rhythm abdomen soft, nontender extremities no edema Procedures Bronchoscopy, port placement A/P Problem List: (1) SIRS (systemic inflammatory response syndrome) ICD Code: R65.10 Status: Acute (2) Lung mass ICD Code: R91.8 Status: Acute (3) Pleural effusion ICD Code: J90 Status: Acute (4) Acute respiratory failure ICD Code: J96.00 Status: Acute (5) COPD exacerbation ICD Code: J44.1 Status: Acute (6) Methadone maintenance therapy patient ICD Code: F11.20 Status: Acute (7) Leukocytosis ICD Code: D72.829 Status: Acute Assessment and Plan Ms. Ford is a 61 year old female with a history of tobacco abuse, COPD who was admitted due to worsening shortness of breath. She also noticed some blood in her sputum. Work up indicated lung mass with mediastinal adenopathy consistent with bronchogenic carcinoma. Bronch washing on 11/03/2016 showed malignant cells favoring squamous cell carcinoma. No mets on CT abd/pelvis, bone scan or MRI brain. She was diagnosed with stage IIIa NSLCC. She was then evaluated for chemo and radiation. - Stage IIIA Non-small cell lung cancer. - CT chest reveals 4.3 x 7.1 x 8.2 cm mass, likely bronchogenic carcinoma with mediastinal and right hilar metastatic adenopathy; moderate pleural effusion with loculation laterally at the base. - Brain MRI and bone scan, no metastatic disease noted on the scan. - CT abd/pel with solid mass right kidney - Pulmonology following. Dr. Calderón s/p bronchoscopy 11/02/16. Pathology favors squamous cell cancer. - getting XRT daily started XRT 11/11.- continue as OP - Dr. Braxton following, Port placed. Patient is receiving chemo- cleared for DC - next chemo- Tuesday as OP. - COPD exacerbation/acute respiratory failure - Mild leukocytosis. Imaging as above. Majority of symptoms are likely due to the lung mass, also has wheezing on exam. - ED note indicates patient's nebulizer machine was not working. - s/p IV rocephin and IV azithromycin and later treated with doxycycline . - continue neb treatment. - continue prednisone decrease to 5 mg po daily x 5 days then DC OP ff up with Dr. Godinez - Patient is currently on room air. - Hypertension: - PRN clonidine ordered SBP>180 - Improved continue Norvasc - Chronic pain - Methadone: Confirmed methadone dose with clinic. - Continue 160 mg daily Alternate Code. SCDs. Discharge plan: Will place discharge orders. However, travel arrangements need to be sorted out for patient to continue to receive radiation therapy. Discussed with lining caser. Once travel arrangements are made, patient is ready to be discharged. Oncology cleared for discharge on 11/17/2016. CM consulted to assist with DC- and OP ff ups appts and transportations Problem Qualifiers (1) Acute respiratory failure: Qualified Code: J96.01 - Acute respiratory failure with hypoxia Lacho Leon MD Nov 17, 2016 12:44
[2016-11-17] MEDS ORDERED: PRED5TAB PO (13:00)
--- NOTE | 2016-11-17 13:04 | HHI.DS ---
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 She states she has had shortness of breath for "some time"stating it has been bad for a couple of months. She admits to some right sided chest pain describes it as pleuritic and worse with coughing. She states her cough has been productive lately. She states she had mostly bloody phlegm last night. Admits to fevers and chills, night sweats, headaches. She additionally has had nausea and vomiting for a couple months. Denies any diarrhea or constipation. ED note states that the patient was supposed to be using nebulizers but her machine is broken. CBC/BMP: 11/16/16 0500 11/16/16 0500 Significant Findings Laboratory Tests Test 11/15/16 11/16/16 05:58 05:00 White Blood Count 13.1 TH/MM3 (4.0-11.0) Neutrophils (%) (Auto) 83.2 % 94.8 % (16.0-70.0) (16.0-70.0) Lymphocytes (%) (Auto) 5.2 % 2.7 % (9.0-44.0) (9.0-44.0) Monocytes (%) (Auto) 10.0 % (0.0-8.0) Neutrophils # (Auto) 10.9 TH/MM3 (1.8-7.7) Lymphocytes # (Auto) 0.7 TH/MM3 0.2 TH/MM3 (1.0-4.8) (1.0-4.8) Monocytes # (Auto) 1.3 TH/MM3 (0-0.9) Sodium Level 134 MEQ/L 132 MEQ/L (136-145) (136-145) Chloride Level 95 MEQ/L 93 MEQ/L (98-107) (98-107) Calcium Level 8.3 MG/DL (8.5-10.1) Aspartate Amino Transf 13 U/L (15-37) 10 U/L (15-37) (AST/SGOT) Total Protein 6.2 GM/DL (6.4-8.2) Albumin 2.8 GM/DL 2.6 GM/DL (3.4-5.0) (3.4-5.0) Random Glucose 116 MG/DL (74-106) Imaging Last Impressions Port Line Insertion 11/05/16 0600 Signed Impressions: Service Date/Time: Saturday, November 05, 2016 10:55 - CONCLUSION: Uncomplicated ultrasound and fluoroscopic guided implanted central venous port catheter placement as described in detail above. An 8 [place] Power port was placed. Stevie Yu MD Chest X-Ray 11/02/16 0000 Signed Impressions: Service Date/Time: Wednesday, November 02, 2016 13:04 - CONCLUSION: 1. No pneumothorax, status post bronchoscopy. Ramiro Neevs MD Chest Ultrasound 11/02/16 0000 Signed Impressions: Service Date/Time: Wednesday, November 02, 2016 22:31 - CONCLUSION: Dense consolidation of the right lower lobe. No pleural fluid seen. Mirza Donnelly Jr., MD Brain MRI 11/01/16 0000 Signed Impressions: Service Date/Time: Tuesday, November 01, 2016 15:15 - CONCLUSION: 1. No metastatic disease or other acute intracranial abnormality. 2. Mild, chronic white matter changes. 3. Chronically deformed left globe. Omar Venegas MD Bone Scan Nuclear Medicine 11/01/16 0000 Signed Impressions: Service Date/Time: Tuesday, November 01, 2016 12:02 - CONCLUSION: No definite scintigraphic evidence of osseous metastatic disease. Anup Bowman MD Abdomen/Pelvis CT 11/01/16 0000 Signed Impressions: Service Date/Time: Wednesday, November 02, 2016 20:35 - CONCLUSION: Slightly greater than 4.5 cm solid mass involving the lower pole of the right kidney. No other evidence of neoplastic disease in the abdomen or pelvis. Omar Arnold MD Chest CT 10/30/16 0000 Signed Impressions: Service Date/Time: Sunday, October 30, 2016 16:20 - CONCLUSION: 1. Large right hilar/infrahilar mass compatible with a central primary bronchogenic carcinoma. 2. Mediastinal and right hilar metastatic adenopathy. 3. Hepatic cysts. No metastatic disease demonstrated in the visualized upper abdomen or of the visualized osseous structures. Omar Venegas MD ADDENDUM: A right chest ultrasound was done a couple hours after the CT showing densely consolidated right lung base without perceptible pleural fluid. The noncontrast CT clearly shows heterogeneous attenuation of the right base, and in conjunction with the ultrasound must represent different age or degree of parenchymal consolidation or a combination of atelectasis and pneumonia. Omar Venegas MD PE at Discharge anicteric lungs- decreased breath sounds, no rales, or wheezes regular rhythm abdomen soft, nontender extremities no edema Pt update on day of discharge awake and alert, not in pain breathing comfortable, ambulating lung exam- no wheezes or rales Hospital Course Ms. Ford is a 61 year old female with a history of tobacco abuse, COPD who was admitted due to worsening shortness of breath. She also noticed some blood in her sputum. Work up indicated lung mass with mediastinal adenopathy consistent with bronchogenic carcinoma. Bronch washing on 11/03/2016 showed malignant cells favoring squamous cell carcinoma. No mets on CT abd/pelvis, bone scan or MRI brain. She was diagnosed with stage IIIa NSLCC. She was then evaluated for chemo and radiation. - Stage IIIA Non-small cell lung cancer. - CT chest reveals 4.3 x 7.1 x 8.2 cm mass, likely bronchogenic carcinoma with mediastinal and right hilar metastatic adenopathy; moderate pleural effusion with loculation laterally at the base. - Brain MRI and bone scan, no metastatic disease noted on the scan. - CT abd/pel with solid mass right kidney - Pulmonology following. Dr. Calderón s/p bronchoscopy 11/02/16. Pathology favors squamous cell cancer. - getting XRT daily started XRT 11/11.- continue as OP - Dr. Braxton following, Port placed. Patient is receiving chemo- cleared for DC - next chemo- Tuesday as OP. - COPD exacerbation/acute respiratory failure - Mild leukocytosis. Imaging as above. Majority of symptoms are likely due to the lung mass, also has wheezing on exam. - ED note indicates patient's nebulizer machine was not working. - s/p IV rocephin and IV azithromycin and later treated with doxycycline . - continue neb treatment. - continue prednisone decrease to 5 mg po daily x 5 days then DC OP ff up with Dr. Godinez - Patient is currently on room air. - Hypertension: - PRN clonidine ordered SBP>180 - Improved continue Norvasc - Chronic pain - Methadone: Confirmed methadone dose with clinic. - Continue 160 mg daily Alternate Code. SCDs. Discharge plan: Will place discharge orders. However, travel arrangements need to be sorted out for patient to continue to receive radiation therapy. Discussed with family preservation caseworker. Once travel arrangements are made, patient is ready to be discharged. Oncology cleared for discharge on 11/17/2016. CM consulted to assist with DC- and OP ff ups appts and transportations Pt Condition on Discharge: Stable Discharge Disposition: Disch w/ Home Health Serv Discharge Time: <= 30 minutes Discharge Instructions DIET: Follow Instructions for: Heart Healthy Diet Speech Therapy-Diet Recommends: Regular Activities you can perform: Regular-No Restrictions Activities to Avoid: Driving Follow up Referrals: Appointment for Follow Up - 1 Week with Radiation Oncology Oncology - 11/30/16 appt. on 11.30.[address] Braxton at [facility] [place]. Arrive at 2PM, appointment is at 2:30PM PCP Follow-up - 1 Week Pulmonology - 1 Week New Medications: Oxygen tank (Oxygen tank) 1 Ea Tank 2 LITER DIANE.CANULA CONTINUOUS Oxygen Concentrator Portable Gaseous 2 L/min via Nasal Cannula Continuous For 99 months HYPOXEMIA PREVENTION #1 CYLINDER Amlodipine (Norvasc) 5 Mg Tab 2.5 MG PO DAILY Blood Pressure Management #30 TAB Budesonide-Formoterol Inh (Symbicort Inh) 160-4.5 Mcg/Act Aero 2 PUFF INH Q12HR Breathing Treatment #1 INHALER Prednisone (Prednisone) 10 Mg Tab 10 MG PO DAILY Control Inflammation #5 TAB Prednisone (Prednisone) 5 Mg Tab 5 MG PO DAILY PULM Days 5 TAB Continued Medications: Albuterol 18 GM Inh (Ventolin Hfa 18 GM Inh) 90 Mcg/Act Aer 1 PUFF INH Q4H PRN SHORTNESS OF BREATH #1 Ref 0 INHALER Methadone (Methadose) 40 Mg Tab 160 MG PO DAILY Ref 0 TAB Lacho Leon MD Nov 17, 2016 13:04
[2016-11-17] MEDS ORDERED: ZOFR4TAB3 SL (14:55)
[2016-11-17 15:00] VITALS: BP 117/88; PULSE 109; RESP 20; TEMP 98.1; O2SAT 94
[2016-11-17] MEDS ORDERED: DOCUSATE SODIUM 50 MG/SENNA 8.6 MG TAB PO ONE (15:00)
--- NOTE | 2016-11-17 17:36 | HHI.PR ---
Subjective Remarks Feels better Started Chemotherapy today. Has some cough and no hemoptysis.No SOB Objective Vital Signs Date Time Temp Pulse Resp B/P Pulse Ox O2 Delivery O2 Flow Rate FiO2 11/17/16 15:00 98.1 109 20 117/88 94 11/17/16 11:50 98.6 94 20 119/73 93 11/17/16 09:05 94 Room Air 11/17/16 08:30 94 21 11/17/16 04:00 97.2 85 18 113/79 98 11/17/16 00:00 97.7 89 16 135/86 95 11/16/16 20:42 95 Nasal Cannula 11/16/16 20:15 92 Room Air 11/16/16 20:00 98.1 96 18 126/92 92 I/O 11/16/16 11/16/16 11/16/16 11/17/16 11/17/16 11/17/16 07:00 15:00 23:00 07:00 15:00 23:00 Intake Total 480 ml 600 ml 600 ml Balance 480 ml 600 ml 600 ml Intake Oral 480 ml 600 ml 600 ml # Voids 2 4 1 Result Diagram: 11/16/16 0500 11/16/16 0500 Objective Remarks GENERAL: This is a middle-aged averagely built white female who is alert. HEENT: Head normocephalic. Pupils are reactive and equal. Throat is clear. Nasal mucosa clear. NECK: Supple. No bruits, no thyroid enlargement or lymphadenopathy. CHEST: Equal movements with distant breath sounds with occ right base crackles. Breath sounds diminished over the right base. HEART: Heart sounds are irregular S1-S2. No murmur. No S3 gallop. ABDOMEN: Soft, benign. No masses, no organomegaly or tenderness. Bowel sounds are active. EXTREMITIES: No edema. No calf tenderness. NEUROLOGIC: Reflexes are 1 + with no gross motor deficits. . RECTAL: Exam is deferred. SKIN: No lesions observed. Assessment and Plan Assessment and Plan IMPRESSION 1. Right hilar mass with mediastinal adenopathy, rule out malignancy 2. COPD with chronic bronchitis and acute exacerbation 3. Probable right basilar pneumonia 4. Hypertension. 5. Ca Lung , Squamous cell. Plan : 1. D/C O2 2. Radiation therapy as planned 3. Chest X ray this week 4. Ambien 10mg HS prn. 5. Taper off prednisone in 1 week 6. D/C Nebs . Add Spiriva , 1 cap daily. 7. Home today. Will see her in 2 weeks Chaim Calderón MD Nov 17, 2016 17:36
[2016-11-18] MEDS ORDERED: predniSONE 5 MG TAB PO SCH (09:00)
[2016-12-15] MEDS ORDERED: ONDA1TAB17 PO (15:08)
[2016-12-15] MEDS ORDERED: SYMB160A INH (15:54)
[2016-12-15] MEDS ORDERED: METO25TA3 PO (15:54)
[2016-12-15] MEDS ORDERED: VENTAER INH (15:54)
[2016-12-15] MEDS ORDERED: AMLO5 PO (15:54)
== END 2016-11-17 18:50 | disposition home or self-care (01) | DRG 871 ==
LOC: PHED 14:33 → PHEDA 15:47 → PH3A 18:36 → N07B 10-31 16:23 → HOCA 11-12 12:22
PROVIDERS: ADMIT Internal Medicine; ATTEND Internal Medicine
PROC: 0BB68ZX Excision of Right Lower Lobe Bronchus, Via Natural or Artificial Opening Endoscopic, Diagnostic (ICD-10-PCS; principal; 2016-11-02 12:15)
PROC: 0JH60XZ Insertion of Tunneled Vascular Access Device into Chest Subcutaneous Tissue and Fascia, Open Approach (ICD-10-PCS; 2016-11-05)
PROC: 02HV33Z Insertion of Infusion Device into Superior Vena Cava, Percutaneous Approach (ICD-10-PCS; 2016-11-05)
PROC: DB023ZZ Beam Radiation of Lung using Electrons (ICD-10-PCS; 2016-11-11)
PROC: 3E04005 Introduction of Other Antineoplastic into Central Vein, Open Approach (ICD-10-PCS; 2016-11-15)
DX: A41.9 Sepsis, unspecified organism (principal); J96.01 Acute respiratory failure with hypoxia; J90 Pleural effusion, not elsewhere classified; J18.9 Pneumonia, unspecified organism; C34.31 Malignant neoplasm of lower lobe, right bronchus or lung; C77.1 Secondary and unspecified malignant neoplasm of intrathoracic lymph nodes; E87.1 Hypo-osmolality and hyponatremia; F11.20 Opioid dependence, uncomplicated; J44.1 Chronic obstructive pulmonary disease with (acute) exacerbation; R04.2 Hemoptysis; J44.0 Chronic obstructive pulmonary disease with (acute) lower respiratory infection; I10 Essential (primary) hypertension; F17.210 Nicotine dependence, cigarettes, uncomplicated; G89.29 Other chronic pain; G47.00 Insomnia, unspecified; H54.42 Blindness, left eye, normal vision right eye; T38.0X5A Adverse effect of glucocorticoids and synthetic analogues, initial encounter; Z88.6 Allergy status to analgesic agent; Z88.2 Allergy status to sulfonamides; Z86.69 Personal history of other diseases of the nervous system and sense organs
CPT/HCPCS: 36561; 70553; 71010; 71250; 74177; 76604; 76937; 77001; 77014; 77263; 77293; 77300; 77301; 77334; 77336; 77338; 77386; 77427; 78306; 80048; 80053; 83735; 85025; 85610; 85730; 87015; 87070; 87102; 87116; 87205; 87206; 93005; 94060; 94620; 94640; 94664; 96374; 99152; 99153; 99221; A9503; A9579; C1788; J0456; J0696; J1100; J1626; J1642; J1644; J2250; J2405; J2550; J2920; J2930; J3010; J3370; J7050; J7060; J7512; J7613; J9045; J9267; Q9963; Q9967

== ENCOUNTER 2016-11-29 09:31 | Inpatient (IN) | payer OTHER ==
[~2016-11-29] VITALS: Ht 162.6 cm; Wt 65.2 kg
[2016-11-29] VITALS (11 sets, daily range): BP systolic 105–142; BP diastolic 64–78; PULSE 80–100; RESP 17–26; TEMP 97.8–98.5; O2SAT 92–99
[~2016-11-29 09:31] MED LIST changes: -ALBU8I INH; +AMLO5 PO; -LEVA750T PO; +METH40TA2 PO; -METH5SOL3 PO; +OXYGENTANK NAS.CANULA; +PRED5TAB PO; +SYMB160A INH; +VENTAER INH; +ZOFR4TAB3 SL
[2016-11-29] MEDS ORDERED: SODIUM CHLORIDE 0.9% FLUSH 5 ML FLUSH IVF PRN ×2 (09:45→12:45)
[2016-11-29] MEDS ORDERED: methylPREDNISolone SOD SUCC 125 MG/2 ML VIAL IVP ONE (09:45)
[2016-11-29] MEDS: RESP: ALBUTEROL 2.5 MG/IPRATROPIUM 0.5 MG NEB (SCH) INH ×3 (09:52→10:22)
[2016-11-29 10:02] LABS: BLOOD GAS BASE EXCESS 4.7 mmol/L (-2-2); BLOOD GAS CARBOXYHEMOGLOBIN 2.5 % (0-4); BLOOD GAS HCO3 31 mmol/L (22-26); BLOOD GAS METHEMOGLOBIN 0.7 % (0-2); BLOOD GAS O2 HGB SATURATION 95 % (90-100); BLOOD GAS OXYGEN CONTENT 14.3 Vol % (12.0-20.0); BLOOD GAS PCO2 64 mmHg (38-42); BLOOD GAS PO2 96 mmHG (61-120); BLOOD GAS TOTAL HGB 10.6 G/DL (12.0-16.0); TEMP CORR TO 98.6
[2016-11-29 10:03] LABS: CRITICAL VALUE YES; DRAW SITE RT RADIAL; FIO2 40 %; NUMBER OF ARTERIAL PUNCTURES 1; OXYGEN DEVICE BiPAP; STAT YES; ULNAR PULSE PRESENT
[2016-11-29 10:16] LABS: AUTOMATED NEUTROPHIL # 2.9 TH/MM3 (1.8-7.7); BASOPHIL % 0.7 % (0.0-2.0); EOSINOPHIL # 0.1 TH/MM3 (0-0.4); EOSINOPHIL % 1.3 % (0.0-4.0); HEMATOCRIT 33.2 % (35.0-46.0); HEMO FLAGS DIFF FINAL; LYMPHOCYTE # 0.3 TH/MM3 (1.0-4.8); MEAN CELL VOLUME 89.2 FL (80.0-100.0); MEAN CORPUSCULAR HEMOGLOBIN 29.9 PG (27.0-34.0); MEAN CORPUSCULAR HGB CONC 33.6 % (32.0-36.0); PLATELET COUNT 317 TH/MM3 (150-450); RED BLOOD COUNT 3.73 MIL/MM3 (4.00-5.30); RED CELL DISTRIBUTION WIDTH 13.6 % (11.6-17.2); WHITE BLOOD COUNT 3.9 TH/MM3 (4.0-11.0)
[2016-11-29 10:27] LABS: APTT (PATIENT) 24.7 SEC (24.3-30.1); PROTHROMBIN TIME - PATIENT 10.7 SEC (9.8-11.6)
[2016-11-29 10:28] LABS: BICARBONATE 35.1 MEQ/L (21.0-32.0); POTASSIUM 3.9 MEQ/L (3.5-5.1)
--- NOTE | 2016-11-29 10:31 | RADRPT ---
EXAM DATE/TIME: 11/29/2016 09:58 [facility] COMPARISON: CT ABDOMEN & PELVIS W CONTRAST, November 02, 2016, 20:35. CHEST SINGLE AP, November 02, 2016, 13:04. INDICATIONS : Shortness of breath. MEDICAL HISTORY : Hypertension. Chronic obstructive pulmonary disease. SURGICAL HISTORY : None. ENCOUNTER: Initial ACUITY: 1 day PAIN SCORE: 0/10 LOCATION: Bilateral chest FINDINGS: There is homogeneous opacity in the right lung base with definition of the hemidiaphragm being distin ct. This is consistent with findings on October 2016 CT scan of right lower lobe consolidation and pr obable effusion. CONCLUSION: Homogeneous opacity right lung base consistent with parenchymal consolidation and effusion Alex Alvarado MD on November 29, 2016 at 10:28 Board Certified Radiologist. This report was verified electronically.
[2016-11-29] MEDS ORDERED: CEFEPIME INJ 2,000 MG in SODIUM CHLORIDE 0.9% INJ 100 ML IV STA (10:42)
[2016-11-29] MEDS ORDERED: AZITHROMYCIN INJ 500 MG in SODIUM CHLOR 0.9% 250 ML INJ 250 ML IV STA (10:42)
[2016-11-29] MEDS ORDERED: IOHEXOL 350 MG/ML 10 ML VIAL (for RAD DIAG) IV ONE (11:30)
--- NOTE | 2016-11-29 11:50 | PD ---
HPI Chief Complaint: Respiratory Distress Time Seen by Provider: 09:37 Travel History International Travel<30 days: No Contact w/Intl Traveler<30days: No Traveled to known affect area: No History of Present Illness HPI Unfortunate 61-year-old female with recently diagnosed lung cancer here from the oncology center for shortness of breath. Patient was admitted recently with shortness of breath and diagnosed with lung cancer. Undergoing radiation therapy. She went to the oncology center today for follow-up appointment and was noted to be extremely short of breath. Patient states that she felt this way upon waking this morning. EMS was called and patient transported here. Tachycardic, tachypneic, decreased breath sounds throughout with wheezing and rhonchi. Patient states that she was started on a blood thinner when she was recently hospitalized, but per her discharge summary, I do not see any anticoagulation. She denies any known history of DVT, PE. No recent fevers or chills. Per EMS her end-tidal was in the 70s, she was given albuterol 1 and placed on C Pap in route. 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) PNEUMOCCOCAL Vaccine (Year): 2 ?: Not Menopausal: Yes : 3 Para: 2 Miscarriage: 1 Dilation and Curettage (D&C): Yes Past Surgical History Eye Surgery: Yes (CATARAC AND RETINAL SURGERY IN THE LEFT EYE) Gynecologic Surgery: Yes (CERVICAL CONE SURGERY FOR CANCER) Other Surgery: Yes Family History Family Myocardial Infarction: Yes (SISTER MASSIVE NC) Social History Alcohol Use: No Tobacco Use: Yes (11/03) Substance Use: Yes (past) Allergies-Medications (Allergen,Severity, Reaction): Coded Allergies: Sulfa (Verified Allergy, Severe, HIVES, 10/30/16) Toradol (Verified Allergy, Mild, HIVES, 10/30/16) Reported Meds & Prescriptions Reported Meds & Active Scripts Active Zofran Odt (Ondansetron Odt) 4 Mg Tab 4 Mg SL Q6HR PRN Oxygen tank (Oxygen) 1 Ea Tank 2 Liter DIANE.CANULA CONTINUOUS Oxygen Concentrator Portable Gaseous 2 L/min via Nasal Cannula Continuous For 99 months Symbicort Inh (Budesonide/Formoterol Fumarate) 160-4.5 Mcg/Act Aero 2 Puff INH Q12HR Norvasc (Amlodipine Besylate) 5 Mg Tab 2.5 Mg PO DAILY Reported Methadose (Methadone HCl) 40 Mg Tab 160 Mg PO DAILY Ventolin Hfa 18 GM Inh (Albuterol Sulfate) 90 Mcg/Act Aer 1 Puff INH Q4H PRN Review of Systems Except as stated in HPI: all other systems reviewed are Neg Physical Exam Narrative GENERAL: Chronically ill-appearing female in moderate respiratory distress. Smells heavily of tobacco SKIN: Warm and dry. HEAD: Normocephalic. EYES: No scleral icterus. No injection or drainage. ENT: Mucous membranes pink and moist. NECK: Supple CARDIOVASCULAR: Borderline tachycardia with heart rate in the 90s to 100, regular rhythm. No murmur appreciated. RESPIRATORY: Moderate respiratory distress with tachypnea, prolonged expiratory phase. Diffuse wheezing, rhonchi with poor air movement bilaterally. GASTROINTESTINAL: Abdomen soft, non-tender, nondistended. Hepatic and splenic margins not palpable. MUSCULOSKELETAL: No obvious deformities. No edema. NEUROLOGICAL: Awake and alert. Normal speech. PSYCHIATRIC: Appropriate mood and affect; insight and judgment normal. Data Data Last Documented VS Vital Signs Date Time Temp Pulse Resp B/P Pulse Ox O2 Delivery O2 Flow Rate FiO2 11/29/16 10:10 96 40 11/29/16 09:44 BiPAP 11/29/16 09:39 25 11/29/16 09:34 98.5 97 119/65 Orders Complete Blood Count With Diff (11/29/16 09:37) Basic Metabolic Panel (Bmp) (11/29/16 09:37) B-Type Natriuretic Peptide (11/29/16 09:37) Act Partial Throm Time (Ptt) (11/29/16 09:37) Prothrombin Time / Inr (Pt) (11/29/16 09:37) Troponin I (11/29/16 09:37) Arterial Blood Gas (Abg) (11/29/16 09:37) Urinalysis - C+S If Indicated (11/29/16 09:37) Influenzae A/B Antigen (11/29/16 09:37) Blood Culture (11/29/16 09:37) Iv Access Insert/Monitor (11/29/16 09:37) Electrocardiogram (11/29/16 09:37) Ecg Monitoring (11/29/16 09:37) Oximetry (11/29/16 09:37) Oxygen Administration (11/29/16 09:37) Chest, Single Ap (11/29/16 09:37) Ct Pulmonary Angiogram (11/29/16 09:37) Sodium Chloride 0.9% Flush (Ns Flush) (11/29/16 09:45) Methylprednisolone So Succ Inj (Solumedr (11/29/16 09:45) Albuterol-Ipratropium Neb (Duoneb Neb) (11/29/16 09:45) Resp Bipap / Cpap Non Invas Vt (11/29/16 09:37) Lactic Acid Sepsis Protocol (11/29/16 09:37) Cefepime Inj (Maxipime Inj) (11/29/16 10:42) Azithromycin Inj (Zithromax Inj) (11/29/16 10:42) Iohexol 350 Inj (Omnipaque 350 Inj) (11/29/16 11:30) Admit Order (Ed Use Only) (11/29/16 12:20) Labs Laboratory Tests Test 11/29/16 11/29/16 08:50 09:50 White Blood Count 3.9 TH/MM3 Red Blood Count 3.73 MIL/MM3 Hemoglobin 11.2 GM/DL Hematocrit 33.2 % Mean Corpuscular Volume 89.2 FL Mean Corpuscular Hemoglobin 29.9 PG Mean Corpuscular Hemoglobin 33.6 % Concent Red Cell Distribution Width 13.6 % Platelet Count 317 TH/MM3 Mean Platelet Volume 6.9 FL Neutrophils (%) (Auto) 75.0 % Lymphocytes (%) (Auto) 8.0 % Monocytes (%) (Auto) 15.0 % Eosinophils (%) (Auto) 1.3 % Basophils (%) (Auto) 0.7 % Neutrophils # (Auto) 2.9 TH/MM3 Lymphocytes # (Auto) 0.3 TH/MM3 Monocytes # (Auto) 0.6 TH/MM3 Eosinophils # (Auto) 0.1 TH/MM3 Basophils # (Auto) 0.0 TH/MM3 CBC Comment DIFF FINAL Differential Comment Prothrombin Time 10.7 SEC Prothromb Time International 1.0 RATIO Ratio Activated Partial 24.7 SEC Thromboplast Time Sodium Level 137 MEQ/L Potassium Level 3.9 MEQ/L Chloride Level 100 MEQ/L Carbon Dioxide Level 35.1 MEQ/L Anion Gap 2 MEQ/L Blood Urea Nitrogen 9 MG/DL Creatinine 0.65 MG/DL Estimat Glomerular Filtration 92 ML/MIN Rate Random Glucose 97 MG/DL Lactic Acid Level 0.7 mmol/L Calcium Level 8.4 MG/DL Troponin I 0.02 NG/ML B-Type Natriuretic Peptide 173 PG/ML Blood Gas Puncture Site RT RADIAL Blood Gas Patient Temperature 98.6 Blood Gas HCO3 31 mmol/L Blood Gas Base Excess 4.7 mmol/L Blood Gas Oxygen Saturation 95 % Arterial Blood pH 7.30 Arterial Blood Partial 64 mmHg Pressure CO2 Arterial Blood Partial 96 mmHG Pressure O2 Arterial Blood Oxygen Content 14.3 Vol % Arterial Blood 2.5 % Carboxyhemoglobin Arterial Blood Methemoglobin 0.7 % Blood Gas Hemoglobin 10.6 G/DL Oxygen Delivery Device BiPAP Blood Gas Ventilator Setting 10/5/40% Blood Gas Inspired Oxygen 40 % MDM Medical Decision Making Medical Screen Exam Complete: Yes Emergency Medical Condition: Yes Medical Record Reviewed: Yes Differential Diagnosis 61-year-old female with history of COPD and recently diagnosed lung cancer here with acute shortness of breath this morning upon wakening. Differential includes COPD exacerbation, pneumonia, pneumothorax, pulmonary emboli, symptomatic anemia, arrhythmia, electrolyte abnormality, ACS, influenza. Narrative Course Patient met by myself upon emergency department arrival. Placed on monitor, IV established and blood obtained. Placed on BiPAP therapy. Twelve-lead EKG obtained showing sinus rhythm without notable ST abnormalities, normal intervals. Shortly after patient was on BiPAP therapy she had an ABG obtained. This shows respiratory acidosis with pH 7.302, PCO2 64, PO2 96, bicarbonate 30. Patient was given 125 mg Solu-Medrol and DuoNeb 3. She was empirically treated with cefepime and azithromycin for possible pneumonia. CBC, BMP, BNP, coags, troponin, urinalysis, influenza, blood cultures, lactate were obtained and notable for WBC 3.9, hemoglobin 11.2, bicarbonate 35.1, BNP 173. Portable chest x-ray obtained that by my read shows right basal infiltrate. CT pulmonary angiogram obtained and showed no evidence of PE. Right middle lobe consolidation suspicious for neoplastic process. This represents a significant progression. Patient RA been treated for pneumonia as above and will be admitted for further management. Critical Care Narrative Aggregate critical care time was 65 minutes. Time to perform other separately billable procedures was not included in the critical care time. My time did not include minutes spent treating any other patients simultaneously or on activities that did not directly contribute to the patient's treatment. The services I provided to this patient were to treat and/or prevent clinically significant deterioration that could result in: Cardiopulmonary decompensation, , disability I provided critical care services requiring my management, as noted below: Chart data review, documentation time, medication orders and management, vital sign assessments/reviewing monitor data, ordering and reviewing lab tests, ordering and interpreting/reviewing x-rays and diagnostic studies, care of the patient and discussion of the patient with the admitting physicians. Sepsis Criteria SIRS Criteria (2 or more): Heart rate over 90, RR > 20 or PaCO2 < 32 Sepsis Criteria (SIRS+source): Infect source susp/known Criteria Outcome: Meets SIRS criteria, Meets sepsis criteria Diagnosis Primary Impression: Hypercapnic respiratory failure Qualified Code: J96.02 - Acute respiratory failure with hypercapnia Additional Impressions: COPD exacerbation Sepsis Qualified Code: A41.9 - Sepsis, due to unspecified organism Pneumonia Qualified Code: J18.1 - Pneumonia of right middle lobe due to infectious organism Lung cancer Qualified Code: C34.2 - Malignant neoplasm of middle lobe of right lung Admitting Information Admitting Physician Requests: Admit Grisel Bazan MD Nov 29, 2016 11:49
--- NOTE | 2016-11-29 12:14 | RADRPT ---
EXAM DATE/TIME: 11/29/2016 11:28 [facility] COMPARISON: CT THORAX W/O CONTRAST, October 30, 2016, 16:20. CHEST SINGLE AP, November 02, 2016, 13:04. INDICATIONS : Short of breath. IV CONTRAST: 75 cc Omnipaque 350 (iohexol) IV RADIATION DOSE: 23.26 CTDIvol (mGy) MEDICAL HISTORY : Cardiovascular disease. Hepatitis C. Seizures.Hypertension. Cervical cancer. SURGICAL HISTORY : None. ENCOUNTER: Initial ACUITY: 1 day PAIN SCALE: 4/10 LOCATION: chest TECHNIQUE: Volumetric scanning of the chest was performed using a pulmonary embolism protocol MIP images were re constructed. Using automated exposure control and adjustment of the mA and/or kV according to patien t size, radiation dose was kept as low as reasonably achievable to obtain optimal diagnostic quality images. FINDINGS: Consolidation is seen in the right middle lobe with obstruction of the bronchus intermedius. Subcarinal adenopathy is present. There is no evidence for central pulmonary emboli. Scattered low density lesions are seen in the liver, the majority of which appear to be cysts. Review of bone windows reveals only degenerative changes. CONCLUSION: 1.Right middle lobe consolidation suspicious for a neoplastic process. 2. A bronchial lesion is suspected. 3. This represents a significant progression. . Iam Yu MD FACR on November 29, 2016 at 11:52 Board Certified Radiologist. This report was verified electronically.
[2016-11-29 12:26] LABS: BLOOD, URINE NEG (NEG); COMMENT (UR) CULT NOT INDICATED; CULTURE IF INDICATED CULT NOT INDICATED; GLUCOSE,URINE NEG (NEG); HYALINE CAST, URINE 4 /lpf (RARE); KETONE, URINE NEG (NEG); MUCUS URINE FEW /lpf (OCC); NITRITE,URINE NEG (NEG); URINE COLOR LIGHT-YELLOW (YELLW/STRAW)
--- NOTE | 2016-11-29 12:36 | HHI.HP ---
HPI Service Family Medicine Primary Care Physician No Primary Care Physician Admission Diagnosis sepsis, right middle lobe pneumonia, shortness of breath Diagnoses: Chief Complaint: shortness of breath International Travel<30 Days: No Contact w/Intl Traveler<30days: No Known Affected Area: No History of Present Illness 61 y/o female presents for SOB. She was recently diagnosed with lung cancer and was here today at the oncology for therapy. Developed SOB this morning during appointment. She had been doing fine since last discharge. Also felt general malaise. Endorses fever/chills, occasional chest pain, SOB. History of pneumonia in the past, was admitted last month. Got breathing treatments in ED and was on Bipap, which she states has improved her breathing. Endorses productive cough. History of COPD and significant smoking history. Denies any sick contacts. No hemoptysis. Denies abdominal pain, constipation/diarrhea, leg pain, night sweats. (Jacob Sinclair MD R1) Review of Systems Constitutional: COMPLAINS OF: Fever, Chills, DENIES: Weight loss, Dizziness, Night Sweats Eyes: DENIES: Blurred vision, Vision loss Ears, nose, mouth, throat: DENIES: Hearing loss, Throat pain, Ear Pain Respiratory: COMPLAINS OF: Cough, Shortness of breath Cardiovascular: COMPLAINS OF: Chest pain, Dyspnea on Exertion, DENIES: Lower Extremity Edema Gastrointestinal: DENIES: Abdominal pain, Constipation, Diarrhea, Nausea, Vomiting Genitourinary: COMPLAINS OF: Urgency, Dysuria Musculoskeletal: DENIES: Joint pain, Muscle aches Integumentary: DENIES: Abnormal pigmentation, Rash Hematologic/lymphatic: DENIES: Bruising, Lymphadenopathy Neurologic: DENIES: Abnormal gait, Headache Psychiatric: DENIES: Anxiety, Confusion (Jacob Sinclair MD R1) Past Family Social History Past Medical History COPD Lung Cancer HTN Hep C Retinal detachment Cervical cancer Past Surgical History Retinal surgery D&C Reported Medications Reported Meds & Active Scripts Active Zofran Odt (Ondansetron Odt) 4 Mg Tab 4 Mg SL Q6HR PRN Oxygen tank (Oxygen) 1 Ea Tank 2 Liter DIANE.CANULA CONTINUOUS Oxygen Concentrator Portable Gaseous 2 L/min via Nasal Cannula Continuous For 99 months Symbicort Inh (Budesonide/Formoterol Fumarate) 160-4.5 Mcg/Act Aero 2 Puff INH Q12HR Norvasc (Amlodipine Besylate) 5 Mg Tab 2.5 Mg PO DAILY Reported Methadose (Methadone HCl) 40 Mg Tab 160 Mg PO DAILY Ventolin Hfa 18 GM Inh (Albuterol Sulfate) 90 Mcg/Act Aer 1 Puff INH Q4H PRN ( Jacob Sinclair MD R1) Allergies: Coded Allergies: Sulfa (Verified Allergy, Severe, HIVES, 10/30/16) Toradol (Verified Allergy, Mild, HIVES, 10/30/16) Active Ordered Medications Active Medications Albuterol/ Ipratropium (Duoneb Neb) 1 ampule Q15M INH Last administered on 10:22; Admin Dose 1 AMPULE; Start 11/29/16 at 09:45; Stop 11/29/16 at 10:16 ; Status DC Iohexol (Omnipaque 350 Inj) 75 ml STK-MED ONCE IV; Start 11/29/16 at 11:30; Stop 11/29/16 at 11:32; Status DC IV Flush (NS Flush) 2 ml UNSCH PRN IVF; Start 11/29/16 at 09:45 Methylprednisolone Sodium Succinate (SoluMEDROL INJ) 125 mg ONCE ONCE IVP Last administered on 11/29/16 09:49; Admin Dose 125 MG; Start 11/29/16 at 09:45; Stop 11/29/16 at 09:46; Status DC Family History Parents - heart disease Brother - lung cancer Social History 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 Quit last week No alcohol use History of drug use, on methadone (Jacob Sinclair MD R1) Physical Exam Vital Signs Vital Signs Date Time Temp Pulse Resp B/P Pulse Ox O2 Delivery O2 Flow Rate FiO2 11/29/16 10:10 96 40 11/29/16 09:44 92 40 11/29/16 09:44 92 BiPAP 40 11/29/16 09:42 97 CPAP 40 11/29/16 09:42 97 CPAP 40 11/29/16 09:39 25 95 CPAP 11/29/16 09:34 98.5 97 22 119/65 94 Physical Exam GENERAL: This is a well-nourished, well-developed patient, in some respiratory distress SKIN: No rashes, ecchymoses or lesions. Cool and dry. HEAD: Atraumatic. Normocephalic. No temporal or scalp tenderness. EYES: Pupils equal round and reactive. Extraocular motions intact. No scleral icterus. No injection or drainage. ENT: Nose without bleeding, purulent drainage or septal hematoma. Throat without erythema, tonsillar hypertrophy or exudate. Uvula midline. Airway patent. NECK: Trachea midline. No JVD or lymphadenopathy. Supple, nontender. CARDIOVASCULAR: Regular rate and rhythm without murmurs, gallops, or rubs. RESPIRATORY: Prolonged expiratory phase. Occasional wheezes. Poor air movement. GASTROINTESTINAL: Abdomen soft, non-tender, nondistended. No hepato-splenomegaly , or palpable masses. No guarding. MUSCULOSKELETAL: Extremities without clubbing, cyanosis, or edema. No joint tenderness, effusion, or edema noted. No calf tenderness. NEUROLOGICAL: Awake and alert. Cranial nerves II through XII intact. Motor and sensory grossly within normal limits. Five out of 5 muscle strength in all muscle groups. Normal speech. Laboratory Laboratory Tests Test 11/29/16 11/29/16 08:50 09:50 White Blood Count 3.9 Red Blood Count 3.73 Hemoglobin 11.2 Hematocrit 33.2 Mean Corpuscular Volume 89.2 Mean Corpuscular Hemoglobin 29.9 Mean Corpuscular Hemoglobin 33.6 Concent Red Cell Distribution Width 13.6 Platelet Count 317 Mean Platelet Volume 6.9 Neutrophils (%) (Auto) 75.0 Lymphocytes (%) (Auto) 8.0 Monocytes (%) (Auto) 15.0 Eosinophils (%) (Auto) 1.3 Basophils (%) (Auto) 0.7 Neutrophils # (Auto) 2.9 Lymphocytes # (Auto) 0.3 Monocytes # (Auto) 0.6 Eosinophils # (Auto) 0.1 Basophils # (Auto) 0.0 CBC Comment DIFF FINAL Differential Comment Prothrombin Time 10.7 Prothromb Time International 1.0 Ratio Activated Partial 24.7 Thromboplast Time Sodium Level 137 Potassium Level 3.9 Chloride Level 100 Carbon Dioxide Level 35.1 Anion Gap 2 Blood Urea Nitrogen 9 Creatinine 0.65 Estimat Glomerular Filtration 92 Rate Random Glucose 97 Lactic Acid Level 0.7 Calcium Level 8.4 Troponin I 0.02 B-Type Natriuretic Peptide 173 Blood Gas Puncture Site RT RADIAL Blood Gas Patient Temperature 98.6 Blood Gas HCO3 31 Blood Gas Base Excess 4.7 Blood Gas Oxygen Saturation 95 Arterial Blood pH 7.30 Arterial Blood Partial 64 Pressure CO2 Arterial Blood Partial 96 Pressure O2 Arterial Blood Oxygen Content 14.3 Arterial Blood 2.5 Carboxyhemoglobin Arterial Blood Methemoglobin 0.7 Blood Gas Hemoglobin 10.6 Oxygen Delivery Device BiPAP Blood Gas Ventilator Setting 10/5/40% Blood Gas Inspired Oxygen 40 Date/Time Procedure Status Source Growth 11/29/16 11:40 Influenza Types A,B Antigen ([place]) - Final Complete Nasal Washing NEGATIVE FOR FLU A AND B ANTIGEN.... 11/29/16 09:55 Aerobic Blood Culture Received Blood Peripheral Pending 11/29/16 09:55 Anaerobic Blood Culture Received Blood Peripheral Pending (Jacob Sinclair MD R1) Result Diagram: 11/29/16 0850 11/29/16 0850 Imaging Last Impressions Chest X-Ray 11/29/16 0937 Signed Impressions: Service Date/Time: Tuesday, November 29, 2016 09:58 - CONCLUSION: Homogeneous opacity right lung base consistent with parenchymal consolidation and effusion Alex Alvarado MD (Jacob Sinclair MD R1) Septic Shock Reassessment Heart: Regular rate and rhythm Lungs: Clear, Diminished Skin: Warm, Dry Peripheral Pulses: Bounding Right Radial Bounding Left Radial Bounding Right Popliteal Bounding Left Popliteal Bounding Right Dorsalis Pedis Bounding Left Dorsalis Pedis Bounding Right Posterior Tibial Bounding Left Posterior Tibial Capillary Refill: Brisk (Jacob Sinclair MD R1) Assessment and Plan Assessment and Plan 61 y/o female with history of COPD and recently diagnosed lung cancer presents with shortness of breath. Found to have consolidation on CTA. Will admit for IV antibiotics and management of respiratory symptoms Code Status Full Discussed Condition With Dr. Mcgee & Dr. Reina (Jacob Sinclair MD R1) Attending Attestation THIS CASE WAS DISCUSSED WITH THE RESIDENT PHYSICIANS. I HAVE REVIEWED THE RECORD AND AGREE WITH THE ABOVE NOTE AND PLAN OF CARE WAS DISCUSSED. I HAVE AUTHORIZED THE ORDER FOR ADMISSION TO AN IN-PATIENT STATUS. (Elvis Mcgee MD) Problem List: (1) Pneumonia Status: Acute Plan: CXR shows homogenous opacity right lung base consistent with parenchymal consolidation and effusion Pulmonary CTA shows right middle lobe consolidation, bronchial lesion Causitive ddx includes S. pneumo, pseudomonas, MRSA, mycoplasma, Moraxella, viral URI, vs other. HCAP as patient recently discharged from hospital and receiving radiation therapy WBC 3.9, neutrophil % 75, afebrile -Vancomycin 20 mg/kg IV every 12 hours for gram positives and MRSA coverage. Pharmacy consulted. -Zosyn 4.5 g IV every 6 hours for coverage of gram negatives and Pseudomonas. -Duonebs Q 6 hours scheduled. -Albuterol Q1 hr PRN SOB. -Supplemental O2 and pulse ox monitoring. -Acapella, incentive spirometer. -Tylenol, Tessalon, and Mucinex available as PRNs. (2) Sepsis Status: Acute Plan: Pulse 97. RR 22. WBC 3.9 Lactic acid 0.7. BPs normal Pneumonia as source of infection Plan as above for antibiotics and treatment. Continue to monitor vitals (3) Lung cancer Status: Acute Plan: History of right middle lobe lung cancer - Consult her oncologist, Dr. Braxton - Plan as above for pneumonia (4) HTN (hypertension) Status: Acute Plan: BP 119/65 on admission Continue home meds: amlodipine 2.5mg daily (5) History of drug abuse Status: Acute Plan: Continue methadone 160mg daily (6) FEN Status: Acute Plan: Fluids: none. tolerating PO Electrolytes: wnl. continue to monitor Nutrition: regular diet DVT ppx: lovenox 40mg daily (Jacob Sinclair MD R1) Physician Certification 2 Midnight Certification Type: Admission for Inpatient Services Order for Inpatient Services The services are ordered in accordance with Medicare regulations or non- Medicare payer requirements, as applicable. In the case of services not specified as inpatient-only, they are appropriately provided as inpatient services in accordance with the 2-midnight benchmark. Estimated LOS (days): 3 days is the estimated time the patient will need to remain in the hospital, assuming treatment plan goals are met and no additional complications. Post-Hospital Plan: Home (aJcob Sinclair MD R1) Problem Qualifiers (1) Pneumonia: Qualified Code: J18.1 - Pneumonia of right middle lobe due to infectious organism (2) Sepsis: Qualified Code: A41.9 - Sepsis, due to unspecified organism (3) Lung cancer: Qualified Code: C34.2 - Malignant neoplasm of middle lobe of right lung (4) HTN (hypertension): Qualified Code: I10 - Essential hypertension Jacob Sinclair MD R1 Nov 29, 2016 12:36 Elvis Mcgee MD Nov 29, 2016 19:41
[2016-11-29] MEDS ORDERED: SODIUM CHLORIDE 0.9% FLUSH 5 ML FLUSH IV FLUSH PRN (12:45)
[2016-11-29] MEDS ORDERED: VANCOMYCIN INJ 1,000 MG in SODIUM CHLOR 0.9% 250 ML INJ 250 ML IV ONE (13:00)
[2016-11-29] MEDS: ENOXAPARIN SODIUM 40 MG/0.4 ML SYRINGE SQ SCH (13:47)
--- NOTE | 2016-11-29 13:50 | EKG ---
Date Performed: 11/29/2016 Time Performed: 09:46:08 PTAGE: 61 years EKG: Sinus rhythm NONSPECIFIC T-WAVE ABNORMALITY BORDERLINE ECG PREVIOUS TRACING : 11/02/2016 12.04 Compared to previous tracing, nonspecific T wave abnormalit y is now evident. DOCTOR: Dominguez Vera Interpretating Date/Time 11/29/2016 13:48:24
[2016-11-29] MEDS ORDERED: LEVOFLOXACIN 750 MG PREMIX INJ 150 ML IV SCH (14:00)
[2016-11-29] MEDS: methylPREDNISolone SOD SUCC 125 MG/2 ML VIAL IVP SCH ×2 (16:00→21:43)
[2016-11-29] MEDS: PROMETHAZINE INJ 25 MG/ML VIAL IM PRN (16:38)
[2016-11-29] MEDS ORDERED: ACETAMINOPHEN 325 MG TAB PO PRN (17:15)
[2016-11-29] MEDS: PIPERACIL-TAZO 4.5 GM PREMIX 100 ML IV SCH ×2 (18:48→21:35)
[2016-11-29] MEDS: RESP: ALBUTEROL 2.5 MG/3 ML NEB (PRN) INH (19:56)
[2016-11-29] MEDS ORDERED: SODIUM CHLORIDE 0.9% FLUSH 5 ML FLUSH IV FLUSH SCH (21:00)
[2016-11-29] MEDS: SODIUM CHLORIDE 0.9% FLUSH 5 ML FLUSH IVF SCH (21:35)
[2016-11-29] MEDS ORDERED: ZOLPIDEM TARTRATE 5 MG TAB PO PRN (23:00)
[2016-11-30] VITALS (9 sets, daily range): BP systolic 121–142; BP diastolic 65–88; PULSE 72–98; RESP 20–24; TEMP 97–98.2; O2SAT 91–98
[2016-11-30] MEDS: methylPREDNISolone SOD SUCC 125 MG/2 ML VIAL IVP SCH ×4 (03:50→21:24)
[2016-11-30] MEDS: PIPERACIL-TAZO 4.5 GM PREMIX 100 ML IV SCH ×4 (03:50→22:40)
[2016-11-30] MEDS: METHADONE HCL 10 MG TAB PO SCH (05:04)
[2016-11-30 07:00] LABS: AUTOMATED NEUTROPHIL # 5.6 TH/MM3 (1.8-7.7); BASOPHIL % 0.1 % (0.0-2.0); HEMATOCRIT 31.4 % (35.0-46.0); HEMO FLAGS DIFF FINAL; LYMPH % 2.8 % (9.0-44.0); LYMPHOCYTE # 0.2 TH/MM3 (1.0-4.8); MEAN CORPUSCULAR HEMOGLOBIN 29.8 PG (27.0-34.0); MEAN CORPUSCULAR HGB CONC 33.8 % (32.0-36.0); MONO % 3.4 % (0.0-8.0); NEUT % 93.7 % (16.0-70.0); PLATELET COUNT 328 TH/MM3 (150-450); RED BLOOD COUNT 3.57 MIL/MM3 (4.00-5.30); RED CELL DISTRIBUTION WIDTH 13.1 % (11.6-17.2); WHITE BLOOD COUNT 5.9 TH/MM3 (4.0-11.0)
[2016-11-30 07:21] LABS: BICARBONATE 34.6 MEQ/L (21.0-32.0); POTASSIUM 3.7 MEQ/L (3.5-5.1)
--- NOTE | 2016-11-30 08:14 | HHI.FPPN ---
Subjective Remarks FM Attending Note: Patient seen and examined. S: Chart and all resident physician notes reviewed. In summary this is a 61 year old female who was admitted with an admission diagnosis of Sepsis/Right Middle Lobe Pneumonia/Sob. This patient has a history of carcinoma of the lung and is receiving both chemotherapy and radiation therapy. She was sent for admission from radiation therapy yesterday due to increasing shortness of breath. This morning she notes that she is still having wheezing and shortness of breath but that her symptoms have significantly improved. She has only mild pain in her right lower chest. This patient has been on chronic therapy with methadone over the last year at the current dosage. No fever chills are noted. Objective Vitals Vital Signs Date Time Temp Pulse Resp B/P Pulse Ox O2 Delivery O2 Flow Rate FiO2 11/30/16 07:45 98 Nasal Cannula 3.00 11/30/16 06:04 20 11/30/16 03:20 97.6 81 20 138/74 98 11/29/16 23:47 97.8 90 24 142/76 95 11/29/16 20:30 Nasal Cannula 4.00 11/29/16 20:08 93 11/29/16 19:59 99 Nasal Cannula 4.00 11/29/16 19:40 98.1 100 24 133/64 97 11/29/16 17:47 Nasal Cannula 4.00 11/29/16 16:00 92 26 117/68 94 Nasal Cannula 4 11/29/16 13:00 92 17 124/67 94 Nasal Cannula 3 11/29/16 10:10 96 40 11/29/16 10:00 80 17 105/78 96 BiPAP 40 11/29/16 09:44 92 40 11/29/16 09:44 92 BiPAP 40 11/29/16 09:42 97 CPAP 40 11/29/16 09:42 97 CPAP 40 11/29/16 09:39 25 95 CPAP 11/29/16 09:34 98.5 97 22 119/65 94 I/O 11/29/16 11/29/16 11/29/16 11/30/16 11/30/16 11/30/16 07:00 15:00 23:00 07:00 15:00 23:00 Intake Total 480 ml 240 ml Output Total 800 ml Balance -800 ml 480 ml 240 ml Intake Oral 480 ml 240 ml Output Urine Total 800 ml # Voids 0 2 2 # Bowel Movements 0 0 Result Diagram: 11/30/16 0608 11/30/16 0608 Imaging Last 48 hours Impressions Chest X-Ray 11/29/16936 Signed Impressions: Service Date/Time: Tuesday, November 29, 2016 09:58 - CONCLUSION: Homogeneous opacity right lung base consistent with parenchymal consolidation and effusion Alex Alvarado MD CT Angiography 11/29/16936 Signed Impressions: Service Date/Time: Tuesday, November 29, 2016 11:28 - CONCLUSION: 1.Right middle lobe consolidation suspicious for a neoplastic process. 2. A bronchial lesion is suspected. 3. This represents a significant progression. . Iam Yu MD FACR Objective Remarks O. CONSTITUTIONAL/GEN: normally nourished, in NAD. EYES: conjunctiva normal, lens of left eye is opacified secondary previous retinal detachment. LUNGS: BS decreased with prolonged expiratory phase a mild wheezing, respiratory effort is slightly increased. CARDIOVASCULAR: RR without murmur or gallop. No significant edema. GI/ABD: soft without masses, without organomegaly. NEURO: No focal deficits. MUSC: back is normal in appearance. Extremities are normal in appearance. No clubbing. PSYCH/MENTAL STATUS: Alert and oriented x 3. A/P Assessment and Plan 61 y/o female with history of COPD and recently diagnosed lung cancer presents with shortness of breath. Found to have consolidation on CTA. Will admit for IV antibiotics and management of respiratory symptoms Problem List: (1) Pneumonia Status: Acute Plan: CXR shows homogenous opacity right lung base consistent with parenchymal consolidation and effusion Pulmonary CTA shows right middle lobe consolidation, bronchial lesion Causitive ddx includes S. pneumo, pseudomonas, MRSA, mycoplasma, Moraxella, viral URI, vs other. HCAP as patient recently discharged from hospital and receiving radiation therapy WBC 3.9, neutrophil % 75, afebrile -Vancomycin 20 mg/kg IV every 12 hours for gram positives and MRSA coverage. Pharmacy consulted. -Zosyn 4.5 g IV every 6 hours for coverage of gram negatives and Pseudomonas. -Duonebs Q 6 hours scheduled. -Albuterol Q1 hr PRN SOB. -Supplemental O2 and pulse ox monitoring. -Acapella, incentive spirometer. -Tylenol, Tessalon, and Mucinex available as PRNs. 11/30/16 This patient appears to have an exacerbation of her COPD. She is still exhibiting some significant signs of reactive airway changes so will continue her current treatment as outlined. (2) Sepsis Status: Acute Plan: Pulse 97. RR 22. WBC 3.9 Lactic acid 0.7. BPs normal Pneumonia as source of infection Plan as above for antibiotics and treatment. Continue to monitor vitals (3) Lung cancer Status: Acute Plan: History of right middle lobe lung cancer - Consult her oncologist, Dr. Braxton - Plan as above for pneumonia (4) HTN (hypertension) Status: Acute Plan: BP 119/65 on admission Continue home meds: amlodipine 2.5mg daily (5) History of drug abuse Status: Acute Plan: Continue methadone 160mg daily (6) FEN Status: Acute Plan: Fluids: none. tolerating PO Electrolytes: wnl. continue to monitor Nutrition: regular diet DVT ppx: lovenox 40mg daily Problem Qualifiers (1) Pneumonia: Qualified Code: J18.1 - Pneumonia of right middle lobe due to infectious organism (2) Sepsis: Qualified Code: A41.9 - Sepsis, due to unspecified organism (3) Lung cancer: Qualified Code: C34.2 - Malignant neoplasm of middle lobe of right lung (4) HTN (hypertension): Qualified Code: I10 - Essential hypertension Elvis Mcgee MD Nov 30, 2016 08:14
[2016-11-30] MEDS: amLODIPine BESYLATE 5 MG TAB PO SCH (08:37)
[2016-11-30] MEDS: SODIUM CHLORIDE 0.9% FLUSH 5 ML FLUSH IVF SCH ×2 (08:39→21:25)
[2016-11-30] MEDS ORDERED: METHADONE HCL 10 MG TAB PO SCH (09:00)
[2016-11-30] MEDS ORDERED: PNEUMOCOCCAL POLYVALENT INJ 25 MCG/0.5 ML SYR IM ONE (10:00)
[2016-11-30] MEDS: PROMETHAZINE INJ 25 MG/ML VIAL IM PRN ×2 (15:01→21:33)
[2016-11-30] MEDS: ENOXAPARIN SODIUM 40 MG/0.4 ML SYRINGE SQ SCH (15:01)
[2016-11-30] MEDS: RESP: ALBUTEROL 2.5 MG/3 ML NEB (PRN) INH (15:58)
--- NOTE | 2016-11-30 17:11 | MB ---
cc: KRYSTLE ALEXANDRE M.D. DATE OF CONSULTATION: 11/30/2016 REASON FOR CONSULTATION: Oncology consult render opinion regarding patient with lung cancer admitted with possible pneumonia. HISTORY OF PRESENT ILLNESS The patient is a 61-year-old female recently diagnosed with locally advanced [id number] lung carcinoma currently receiving radiation with concurrent chemotherapy. She just received a cycle two of carboplatin, Taxol on November 22. She had receive about 2 weeks of radiation. She started having increased shortness of breath and weakness for last 2 days. She has some pain in the right chest wall. She stated she had fever up to 0102 at home a. She prior to admission she stated she fell into a beta roll off to the fall. She denies loss of consciousness. She was at work, O2 can abduct she still has cough mostly nonproductive. Denies any hemoptysis. He had mild nausea without vomiting. Denies abdominal pain has diarrhea. Denies any dysuria, hematuria on presentation CT angiogram did not show any pulmonary embolism. However, there is a right middle lobe consolidation with bronchial lesion noted. She was started on antibiotic and she is feeling better. PAST MEDICAL HISTORY: [id number] lung carcinoma. Chronic obstructive pulmonary disease, hypertension, hepatitis C retinal detachment cervical cancer precancerous lesion. Past surgical history of retinal surgery, D&C port placement. The cervical cone surgery, cataract surgery. FAMILY HISTORY By a brother of lung cancer. SOCIAL HISTORY Smoked a pack a day for at least 30 years. She quit a week ago she denies any alcohol use. She has history of addiction to pain medication and IV drug use. She is a in the methadone program for about 2 years. ALLERGIES Sulfa and Toradol CURRENT MEDICATIONS 1. Norvasc. 2. Methadone and the and Solu-. 3. Medrol associated. 4. Lovenox. REVIEW OF SYSTEMS CONSTITUTIONAL: Has had fever and chills. HEAD, EYES, EARS, NOSE, AND THROAT: Eyes: Denies any left eye blindness. ENT: No sore voice changes. CARDIOVASCULAR SYSTEM: Denies chest pressure, palpitation RESPIRATORY: As above. GASTROINTESTINAL: Has nausea without vomiting. Denies abdominal pain. GENITOURINARY: No dysuria mature MUSCULOSKELETAL: Denies bone pain, muscle pain hematology negative Shivam negative dermatology negative. PSYCHIATRIC: Negative. NEUROLOGIC: Negative. PHYSICAL EXAMINATION VITAL SIGNS: Temperature 97 point blood pressure 42/88, O2 saturation 97% on 2 liters nasal cannula. GENERAL: She is alert and x3 in no acute distress. HEAD, EYES, EARS, NOSE, AND THROAT: Atraumatic, normocephalic. Left eye blindness cloudy cornea noted. Oropharynx no with dry mucosa. No lesion in no thyromegaly. LYMPHATICS: No palpable masses in no palpable cervical, clavicular, axillary lymph node. CARDIOVASCULAR SYSTEM: Regular S1-S2. LUNGS: Decreased breath sound right lung base. No wheezing or ABDOMEN: Soft, nontender. Could not palpate liver or spleen. EXTREMITIES: No cyanosis or edema. BACK: No paravertebral tenderness. SKIN: No rash. EXAMINATION Nonfocal. Laboratory data reviewed ASSESSMENT 1. Non-small cell lung carcinoma stage 3A. CT showed large right hilar mass extended to infrahilar region causing collapse of right lower lobe, measured 4.3 x 7 x 8.2 cm. There were 2.8 cm subcarinal, 2.7 cm suprahilar, 1.7 cm pretracheal lymph nodes. Bronchial washing showed malignant cells favoring squamous cell carcinoma. She initially presented with hemoptysis. Workup did not show obvious distant metastasis. Her CT abdomen and pelvis, bone scan, and brain MRI were unremarkable. She was started on radiation with concurrent carboplatin, Taxol weekly. She just completed cycle two of chemotherapy on November 22. She now presented with possible pneumonia. We are going to hold the chemotherapy for now until her pneumonia resolves. 2. Pneumonia. CT showed right middle lobe of consolidation. She had fever up to 102 at home. She has been afebrile since she presented to the hospital. Blood culture is negative to date. She was started on Zosyn. 3. Anemia due to chemotherapy and radiation is mild she does not require transfusion. 4. History of drug abuse. She is currently on methadone. 5. Chronic obstructive pulmonary. 6. She quit smoking a week ago. 7. History of cervical precancerous lesion. 8. History of seizure last time was more than 5 years ago. 9. Left eye blindness. RECOMMENDATIONS 1. Continue treatment for pneumonia. 2. Hold chemotherapy for now. 3. Continue supportive care. 4. I have had extensive discussion with the patient and her daughter at the bedside. Thank you Dr. James for asking me to see this patient. MD Shawn Montes De Oca /4:36 PM /4:55 PM [facility] CENTERLeslee
[2016-11-30] MEDS: TEMAZEPAM 7.5 MG CAP PO PRN (21:24)
[2016-11-30] MEDS: BENZONATATE 100 MG CAP PO PRN (21:24)
[2016-12-01] VITALS (11 sets, daily range): BP systolic 149–168; BP diastolic 72–98; PULSE 75–104; RESP 16–24; TEMP 97.4–98.4; O2SAT 94–97
[2016-12-01] MEDS: PIPERACIL-TAZO 4.5 GM PREMIX 100 ML IV SCH ×4 (02:05→20:45)
[2016-12-01] MEDS: METHADONE HCL 10 MG TAB PO SCH (05:22)
[2016-12-01] MEDS: methylPREDNISolone SOD SUCC 125 MG/2 ML VIAL IVP SCH ×4 (05:23→20:47)
[2016-12-01] MEDS: PROMETHAZINE INJ 25 MG/ML VIAL IM PRN ×3 (06:53→22:23)
[2016-12-01 08:05] LABS: AUTOMATED NEUTROPHIL # 9.8 TH/MM3 (1.8-7.7); BASOPHIL % 0.2 % (0.0-2.0); HEMATOCRIT 32.9 % (35.0-46.0); HEMO FLAGS DIFF FINAL; LYMPHOCYTE # 0.2 TH/MM3 (1.0-4.8); MEAN CELL VOLUME 87.7 FL (80.0-100.0); MEAN CORPUSCULAR HEMOGLOBIN 30.5 PG (27.0-34.0); MEAN CORPUSCULAR HGB CONC 34.8 % (32.0-36.0); MONO % 5.9 % (0.0-8.0); NEUT % 91.9 % (16.0-70.0); PLATELET COUNT 398 TH/MM3 (150-450); RED BLOOD COUNT 3.75 MIL/MM3 (4.00-5.30); RED CELL DISTRIBUTION WIDTH 13.3 % (11.6-17.2); WHITE BLOOD COUNT 10.6 TH/MM3 (4.0-11.0)
[2016-12-01 08:28] LABS: BICARBONATE 35.1 MEQ/L (21.0-32.0); POTASSIUM 3.4 MEQ/L (3.5-5.1)
[2016-12-01] MEDS: amLODIPine BESYLATE 5 MG TAB PO SCH (08:55)
[2016-12-01] MEDS: SODIUM CHLORIDE 0.9% FLUSH 5 ML FLUSH IVF SCH ×2 (08:55→20:45)
[2016-12-01] MEDS: RESP: ALBUTEROL 2.5 MG/3 ML NEB (PRN) INH (08:59)
--- NOTE | 2016-12-01 10:20 | HHI.FPPN ---
Subjective Remarks Patient seen and examined this morning. Per nurse, had 6 PVCs early this morning , but patient was asymptomatic. Pt states the has felt palpitations in the past , but has been asymptomatic and never been diagnosed with anything. States her breathing is improved, just received breathing treatment. Denies any nausea/ vomiting, fever/chills, chest pain, abdominal pain, leg pain. (Jacob Sinclair MD R1) Objective Vitals Vital Signs Date Time Temp Pulse Resp B/P Pulse Ox O2 Delivery O2 Flow Rate FiO2 12/01/16 09:02 94 Nasal Cannula 2.00 12/01/16 07:54 97.5 81 20 160/92 96 12/01/16 04:07 98.4 90 24 168/81 94 12/01/16 00:00 Nasal Cannula 2.50 11/30/16 23:12 98.2 89 24 134/72 91 11/30/16 21:46 92 11/30/16 20:00 Nasal Cannula 3.00 11/30/16 19:36 97.6 98 24 137/88 94 11/30/16 16:00 97.7 90 22 133/65 94 11/30/16 15:58 96 Nasal Cannula 4.00 11/30/16 12:00 97.0 85 24 121/75 94 I/O 11/30/16 11/30/16 11/30/16 12/01/16 12/01/16 12/01/16 07:00 15:00 23:00 07:00 15:00 23:00 Intake Total 240 ml 600 ml 480 ml 830 ml Output Total 900 ml 300 ml 2100 ml Balance 240 ml -300 ml 180 ml -1270 ml Intake Oral 240 ml 600 ml 480 ml 830 ml Output Urine Total 900 ml 300 ml 2100 ml # Voids 2 # Bowel Movements 0 0 0 0 (Jacob Sinclair MD R1) Result Diagram: 12/01/16 0732 12/01/16 0732 Objective Remarks O. CONSTITUTIONAL/GEN: normally nourished, in NAD. EYES: conjunctiva normal, lens of left eye is opacified secondary previous retinal detachment. LUNGS: Increased respiratory effort. BS decreased with prolonged expiratory phase a mild wheezing CARDIOVASCULAR: RR without murmur or gallop. No significant edema. GI/ABD: soft without masses, without organomegaly. NEURO: No focal deficits. MUSC: back is normal in appearance. Extremities are normal in appearance. No clubbing. PSYCH/MENTAL STATUS: Alert and oriented x 3. (Jacob Sinclair MD R1) A/P Assessment and Plan 61 y/o female with history of COPD and recently diagnosed lung cancer presents with shortness of breath. Treating pneumonia and COPD exacerbation. Discharge Planning 1-2 days pending treatment and discharge planning (Jacob Sinclair MD R1) Attending Attestation Patient seen and examined. Case reviewed and discussed with the resident team. Agree with plan of care as discussed with me and documented in the resident note. (Elvis Mcgee MD) Problem List: (1) Pneumonia Status: Acute Plan: CXR shows homogenous opacity right lung base consistent with parenchymal consolidation and effusion Pulmonary CTA shows right middle lobe consolidation, bronchial lesion Flu negative. -Continue Vancomycin 20 mg/kg. Pharmacy consulted -Zosyn 4.5 g IV every 6 hours -Duonebs Q 6 hours scheduled. -Albuterol Q1 hr PRN SOB. -Supplemental O2 and pulse ox monitoring. -Walk test today, pt will likely need home oxygen -Acapella, incentive spirometer. -Tylenol, Tessalon, and Mucinex available as PRNs. (2) Sepsis Status: Resolved Plan: Sepsis resolved Afebrile, vitals stable Continue to monitor vitals (3) Lung cancer Status: Acute Plan: History of right middle lobe lung cancer - Oncology consulted, Dr. Braxton, appreciate recs - Will hold off on chemotherapy for now - Plan as above for pneumonia (4) HTN (hypertension) Status: Acute Plan: BP 119/65 on admission Continue home meds: amlodipine 2.5mg daily (5) History of drug abuse Status: Acute Plan: Continue methadone 160mg daily (6) FEN Status: Acute Plan: Fluids: none. tolerating PO Electrolytes: K 3.4. given 40meq KCl Nutrition: regular diet DVT ppx: lovenox 40mg daily (Jacob Sinclair MD R1) Problem Qualifiers (1) Pneumonia: Qualified Code: J18.1 - Pneumonia of right middle lobe due to infectious organism (2) Sepsis: Qualified Code: A41.9 - Sepsis, due to unspecified organism (3) Lung cancer: Qualified Code: C34.2 - Malignant neoplasm of middle lobe of right lung (4) HTN (hypertension): Qualified Code: I10 - Essential hypertension Jacob Sinclair MD R1 Dec 01, 2016 10:20 Elvis Mcgee MD Dec 01, 2016 16:18
[2016-12-01] MEDS ORDERED: ENALAPRILAT 1.25 MG/ML VIAL IV PRN (10:30)
[2016-12-01] MEDS ORDERED: ALBUTEROL SULFATE 90 MCG/ACT HFA 8 GM INHALER INH PRN (10:45)
[2016-12-01] MEDS ORDERED: POTASSIUM CHLORIDE 10 MEQ CONTROLLED RELEASE TAB PO ONE (11:30)
[2016-12-01] MEDS: NICOTINE 14 MG/24 HR PATCH TD SCH (11:50)
--- NOTE | 2016-12-01 13:10 | PD.ONC.PN ---
Subjective Subjective Remarks Afebrile overnight. Pt walking with RT on approach. She denies SOB at rest. She does have some SOB with exertion. She still has some mild nausea but she states this has improved. Objective Data Date Time Temp Pulse Resp B/P Pulse Ox O2 Delivery O2 Flow Rate FiO2 12/01/16 12:40 94 Nasal Cannula 2.00 12/01/16 12:12 2.00 12/01/16 10:00 97.7 88 20 154/72 95 12/01/16 09:02 94 Nasal Cannula 2.00 12/01/16 07:54 97.5 81 20 160/92 96 12/01/16 04:07 98.4 90 24 168/81 94 12/01/16 00:00 Nasal Cannula 2.50 11/30/16 23:12 98.2 89 24 134/72 91 11/30/16 21:46 92 11/30/16 20:00 Nasal Cannula 3.00 11/30/16 19:36 97.6 98 24 137/88 94 11/30/16 16:00 97.7 90 22 133/65 94 11/30/16 15:58 96 Nasal Cannula 4.00 12/01/16 12/01/16 12/01/16 07:00 15:00 23:00 Intake Total 830 ml Output Total 2100 ml Balance -1270 ml Result Diagram: 12/01/1632 12/01/16 0732 Laboratory Results Laboratory Tests Test 12/01/16 07:32 White Blood Count 10.6 TH/MM3 Red Blood Count 3.75 MIL/MM3 Hemoglobin 11.4 GM/DL Hematocrit 32.9 % Mean Corpuscular Volume 87.7 FL Mean Corpuscular Hemoglobin 30.5 PG Mean Corpuscular Hemoglobin 34.8 % Concent Red Cell Distribution Width 13.3 % Platelet Count 398 TH/MM3 Mean Platelet Volume 6.7 FL Neutrophils (%) (Auto) 91.9 % Lymphocytes (%) (Auto) 2.0 % Monocytes (%) (Auto) 5.9 % Eosinophils (%) (Auto) 0.0 % Basophils (%) (Auto) 0.2 % Neutrophils # (Auto) 9.8 TH/MM3 Lymphocytes # (Auto) 0.2 TH/MM3 Monocytes # (Auto) 0.6 TH/MM3 Eosinophils # (Auto) 0.0 TH/MM3 Basophils # (Auto) 0.0 TH/MM3 CBC Comment DIFF FINAL Differential Comment Sodium Level 138 MEQ/L Potassium Level 3.4 MEQ/L Chloride Level 97 MEQ/L Carbon Dioxide Level 35.1 MEQ/L Anion Gap 6 MEQ/L Blood Urea Nitrogen 11 MG/DL Creatinine 0.65 MG/DL Estimat Glomerular Filtration 92 ML/MIN Rate Random Glucose 108 MG/DL Calcium Level 8.5 MG/DL Culture Results Microbiology Date/Time Procedure Status Source Growth 11/29/16 09:50 Aerobic Blood Culture - Preliminary Resulted Blood Peripheral NO GROWTH IN 2 DAYS 11/29/16 09:50 Anaerobic Blood Culture - Preliminary Resulted Blood Peripheral NO GROWTH IN 2 DAYS 11/29/16 09:55 Aerobic Blood Culture - Preliminary Resulted Blood Peripheral NO GROWTH IN 2 DAYS 11/29/16 09:55 Anaerobic Blood Culture - Preliminary Resulted Blood Peripheral NO GROWTH IN 2 DAYS 11/29/16 11:40 Influenza Types A,B Antigen ([place]) - Final Complete Nasal Washing NEGATIVE FOR FLU A AND B ANTIGEN.... Administered Medications Medications (Trade) Dose Ordered Sig/Félix Route PRN Reason Start Time Stop Time Status Last Admin Dose Admin IV Flush (NS Flush) 2 ml BID IVF 11/29/16 21:00 12/01/16 08:55 Methylprednisolone Sodium Succinate (SoluMEDROL INJ) 60 mg Q6H IVP 11/29/16 16:00 12/01/16 08:55 Enoxaparin Sodium 40 mg 40 mg Q24H SQ 11/29/16 14:00 11/30/16 15:01 Piperacillin Sod/ Tazobactam Sod (Zosyn 4.5 Gm Premix) 100 ml @ 200 mls/hr Q6H IV 11/29/16 15:00 12/01/16 08:55 Promethazine HCl (Phenergan Inj) 12.5 mg Q6H PRN IM NAUSEA OR VOMITING 11/29/16 16:15 12/01/16 06:53 Benzonatate (Tessalon) 200 mg TID PRN PO COUGH 11/29/16 17:15 11/30/16 21:24 Amlodipine Besylate (Norvasc) 2.5 mg DAILY PO 11/30/16 09:00 12/01/16 08:55 Methadone HCl (Dolophine) 160 mg DAILY@05 PO 11/30/16 05:00 12/01/16 05:22 Temazepam (Restoril) 7.5 mg HS PRN PO INSOMNIA OR MUSCLE SPASM 11/30/16 18:45 11/30/16 21:24 Nicotine (Habitrol 14 Mg Patch.24 Hr) 1 patch DAILY TD 12/01/16 11:30 12/01/16 11:50 Objective Remarks GENERAL: Older female, walking the montejo with RT with moderate increased work of breathing. SKIN: Warm and dry. HEAD: Normocephalic. EYES: No injection or drainage. L eye blindness. NECK: No JVD or lymphadenopathy. CARDIOVASCULAR: +S1/S2. No murmur appreciated. RESPIRATORY: Lungs clear. Diminished to lower R side. GASTROINTESTINAL: Abdomen soft, non-tender, nondistended. EXTREMITIES: No edema. NEUROLOGICAL: No obvious focal deficit. Awake, alert, and oriented x3. Assessment/Plan Problem List: (1) Non-small cell carcinoma of right lung, stage 3 Status: Acute Plan: -- Received cycle 2 of Taxol/carboplatin on 11/22. -- Plan for next dose of chemo on 12/06/16 in the clinic. -- On prophylactic Lovenox for DVT prevention Hx/Workup: Pt resently diagnosed with NSCLC after presenting to the ER on with SOB. She received chemotherapy last on 11/22 with Taxol and carboplatin. She developed some worsening SOB and presented back to the ER on 11/29/16 and was found to have R middle lobe consolidation. A CT of abdomen, pelvis and bone scan were unremarkable and showed no evidence of distant mets. (2) Pneumonia Status: Acute Plan: -- On Zosyn -- SOB improving Assessment 61 y/o female with history of NSCLC presents to the ER with SOB. Plan 1. Continue Zosyn 2. Plan to resume chemotherapy on Tuesday as an outpatient if pt is discharged. 3. Labs in am. Attending Statement The exam, history, and the medical decision-making described in the above note were completed with the assistance of the mid-level provider. I reviewed and agree with the findings presented. I attest that I had a [id number] encounter with the patient on the same day, and personally performed and documented my assessment and findings in the medical record. Feeling better. + DEAN. +cough but no hemoptysis. Reviewed her CT and the right lung has reexpanded. She appear to have response to treatment. Continue XRT. Resume chemo next Tuesday and oncology clinic. Consider switching to PO abx and d/c when stable. Problem Qualifiers (1) Pneumonia: Qualified Code: J18.1 - Pneumonia of right middle lobe due to infectious organism Rose Guadarrama Dec 01, 2016 13:10 Harshil Braxton MD Dec 01, 2016 13:30
[2016-12-01] MEDS: ENOXAPARIN SODIUM 40 MG/0.4 ML SYRINGE SQ SCH (16:03)
[2016-12-01] MEDS: TEMAZEPAM 7.5 MG CAP PO PRN (20:56)
[2016-12-01] MEDS: REMOVE OLD NICODERM (NICOTINE) PATCH TD SCH (21:00)
[2016-12-01] MEDS: BENZONATATE 100 MG CAP PO PRN (22:22)
[2016-12-02] VITALS (10 sets, daily range): BP systolic 104–159; BP diastolic 81–89; PULSE 63–148; RESP 18–24; TEMP 96–97.9; O2SAT 94–97
[2016-12-02 03:21] LABS: AUTOMATED NEUTROPHIL # 11.9 TH/MM3 (1.8-7.7); BASOPHIL % 0.2 % (0.0-2.0); HEMATOCRIT 37.9 % (35.0-46.0); HEMO FLAGS DIFF FINAL; LYMPH % 1.7 % (9.0-44.0); LYMPHOCYTE # 0.2 TH/MM3 (1.0-4.8); MEAN CELL VOLUME 87.5 FL (80.0-100.0); MEAN CORPUSCULAR HEMOGLOBIN 29.8 PG (27.0-34.0); MEAN CORPUSCULAR HGB CONC 34.1 % (32.0-36.0); MONO % 6.8 % (0.0-8.0); NEUT % 91.3 % (16.0-70.0); PLATELET COUNT 485 TH/MM3 (150-450); RED BLOOD COUNT 4.33 MIL/MM3 (4.00-5.30)
--- NOTE | 2016-12-02 03:24 | HHI.PR ---
Addendum to Inpatient Note Addendum Reason: Additional Documentation Additional Information Subjective Called regarding sleeping oxygen saturation of 89, desaturating to 81 after getting up and walking to bathroom. Oxygen saturation spontaneously corrected to greater than 95 at rest, however on review of telemetry patient now having atrial fibrillation with heart rate fluctuating from 115 to 160. Patient denies chest pain, shortness of breath. She does endorse palpitations as well as some nausea which is not a new problem for her. Otherwise asymptomatic. On questioning she states that she has had palpitations off and on for quite some time, even prior to coming to the hospital. She carries no formal diagnosis of atrial fibrillation. Objective Gen.: Well-developed well-nourished adult white female lying in bed in no acute distress Cardiovascular: Tachycardic, irregularly irregular rhythm, normal S1/S2, no murmur Respiratory: Referred upper airway noises throughout, otherwise clear to auscultation bilaterally Neuro: Awake, alert. Moves all extremities without difficulty. Grossly nonfocal. 12-lead EKG obtained confirming atrial fibrillation, no STT wave changes Assessment and Plan 61-year-old female with lung cancer admitted for sepsis, pneumonia now with atrial fibrillation, likely paroxysmal * Telemetry reviewed with 12-lead EKG as noted above * Will obtain single troponin and CK-MB to rule out cardiac ischemia * Added TSH, magnesium to morning lab work sdw Derick Blas MD R1 Dec 02, 2016 03:24
[2016-12-02 03:44] LABS: ANION GAP 4 MEQ/L (5-15); BLOOD UREA NITROGEN 16 MG/DL (7-18); CHLORIDE 100 MEQ/L (98-107); GLOMERULAR FILTRATION RATE 73 ML/MIN (>89); POTASSIUM 3.9 MEQ/L (3.5-5.1); SODIUM (NA) 140 MEQ/L (136-145)
[2016-12-02] MEDS: PIPERACIL-TAZO 4.5 GM PREMIX 100 ML IV SCH ×4 (03:46→22:01)
[2016-12-02] MEDS: methylPREDNISolone SOD SUCC 125 MG/2 ML VIAL IVP SCH ×4 (03:47→20:42)
[2016-12-02 03:54] LABS: CREATINE KINASE 121 U/L (26-192)
[2016-12-02 04:07] LABS: CKMB 2.4 NG/ML (0.5-3.6)
[2016-12-02] MEDS: PROMETHAZINE INJ 25 MG/ML VIAL IM PRN ×3 (04:42→18:17)
[2016-12-02] MEDS: METHADONE HCL 10 MG TAB PO SCH (04:58)
[2016-12-02] MEDS ORDERED: Vancomycin Consult Pharmacy 1 EA OTHER SCH (07:15)
[2016-12-02] MEDS ORDERED: VANCOMYCIN INJ 1,000 MG in SODIUM CHLOR 0.9% 250 ML INJ 250 ML IV ONE (08:00)
[2016-12-02] MEDS: SODIUM CHLORIDE 0.9% FLUSH 5 ML FLUSH IVF SCH ×2 (09:00→20:42)
[2016-12-02] MEDS: amLODIPine BESYLATE 5 MG TAB PO SCH (09:19)
[2016-12-02] MEDS: NICOTINE 14 MG/24 HR PATCH TD SCH (09:20)
--- NOTE | 2016-12-02 09:31 | HHI.FPPN ---
Subjective Remarks Patient seen and examined this morning. Overnight, had episode of atrial fibrillation. Troponin was negative. Patient's heart rate normalized spontaneously. Per patient, states she has felt palpitations every once and a while. Denies any chest pain this morning. States her breathing is improving daily. Denies any fever/chills. Still has nausea. (Jacob Sinclair MD R1) Objective Vitals Vital Signs Date Time Temp Pulse Resp B/P Pulse Ox O2 Delivery O2 Flow Rate FiO2 12/02/16 04:00 Nasal Cannula 2.50 12/02/16 03:30 97.5 97 24 133/88 94 12/02/16 02:30 97.9 120 18 104/83 97 12/02/16 01:33 96 Nasal Cannula 2.00 12/02/16 01:21 96 Nasal Cannula 2.00 12/02/16 01:20 148 12/02/16 01:19 96 Room Air 21 12/02/16 01:10 94 Room Air 12/02/16 01:09 98 Nasal Cannula 2.00 12/01/16 23:20 97.8 88 24 149/98 97 12/01/16 21:27 95 Nasal Cannula 2.00 12/01/16 20:18 97.4 94 24 161/89 96 12/01/16 20:04 104 12/01/16 20:00 Nasal Cannula 2.00 12/01/16 16:00 98.1 93 16 157/78 96 12/01/16 12:40 94 Nasal Cannula 2.00 12/01/16 12:12 2.00 12/01/16 10:00 97.7 88 20 154/72 95 I/O 12/01/16 12/01/16 12/01/16 12/02/16 12/02/16 12/02/16 07:00 15:00 23:00 07:00 15:00 23:00 Intake Total 830 ml 460 ml 1070 ml 930 ml Output Total 2100 ml 300 ml 1100 ml 3000 ml Balance -1270 ml 160 ml -30 ml -2070 ml Intake Oral 830 ml 360 ml 1070 ml 730 ml IV Total 100 ml 200 ml Output Urine Total 2100 ml 300 ml 1100 ml 3000 ml # Bowel Movements 0 1 0 1 (Jacob Sinclair MD R1) Result Diagram: 12/02/1631412/02/16314 Objective Remarks O. CONSTITUTIONAL/GEN: normally nourished, in NAD. EYES: conjunctiva normal, lens of left eye is opacified secondary previous retinal detachment. LUNGS: Increased respiratory effort. BS decreased with prolonged expiratory phase a mild wheezing CARDIOVASCULAR: Regular rate and rhythm. No significant edema. GI/ABD: soft without masses, without organomegaly. NEURO: No focal deficits. MUSC: back is normal in appearance. Extremities are normal in appearance. No clubbing. PSYCH/MENTAL STATUS: Alert and oriented x 3. (Jacob Sinclair MD R1) A/P Assessment and Plan 61 y/o female with history of COPD and recently diagnosed lung cancer presents with shortness of breath. Treating pneumonia and COPD exacerbation. Discharge Planning 1-2 days pending treatment and discharge planning (Jacob Sinclair MD R1) Attending Attestation Case reviewed and discussed with the resident team. Agree with plan of care as discussed with me and documented in the resident note. (Elvis Mcgee MD) Problem List: (1) Pneumonia Status: Acute Plan: CXR shows homogenous opacity right lung base consistent with parenchymal consolidation and effusion Pulmonary CTA shows right middle lobe consolidation, bronchial lesion Flu negative. Oxygen walk test, patient desats to 88%, will need oxygen at home -Continue Vancomycin 20 mg/kg. Pharmacy consulted -Zosyn 4.5 g IV every 6 hours -Duonebs Q 6 hours scheduled. -Albuterol Q1 hr PRN SOB. -Supplemental O2 and pulse ox monitoring. -Acapella, incentive spirometer. -Tylenol, Tessalon, and Mucinex available as PRNs. (2) Atrial fibrillation Status: Acute Plan: Episode of atrial fibrillation overnight. Asymptomatic. Troponin negative. TSH normal CHADS2-vasc score 3, requiring anticoagulation. Paroxysmal in nature. Regular rate and rhythm this morning on exam. Plan -2-D Echo of heart -Starting warfarin 6mg daily -Metoprolol 12.5mg BID -Monitor PT/INR, until therapeutic. (3) Lung cancer Status: Acute Plan: History of right middle lobe lung cancer Stage 3A non-small cell lung cancer - Oncology consulted, Dr. Braxton, appreciate recs - Restart chemotherapy on Tuesday - Plan as above for pneumonia (4) HTN (hypertension) Status: Acute Plan: BP 119/65 on admission Continue home meds: amlodipine 2.5mg daily (5) History of drug abuse Status: Acute Plan: Continue methadone 160mg daily (6) FEN Status: Acute Plan: Fluids: none. tolerating PO Electrolytes: wnl, continue to monitor Nutrition: regular diet DVT ppx: lovenox 40mg daily (Jacob Sinclair MD R1) Problem Qualifiers (1) Pneumonia: Qualified Code: J18.1 - Pneumonia of right middle lobe due to infectious organism (2) Atrial fibrillation: Qualified Code: I48.0 - Paroxysmal atrial fibrillation (3) Lung cancer: Qualified Code: C34.2 - Malignant neoplasm of middle lobe of right lung (4) HTN (hypertension): Qualified Code: I10 - Essential hypertension Jacob Sinclair MD R1 Dec 02, 2016 09:31 Elvis Mcgee MD Dec 03, 2016 10:15
[2016-12-02] MEDS: METOPROLOL TARTRATE 25 MG TAB PO SCH ×2 (11:02→20:42)
--- NOTE | 2016-12-02 12:42 | EC ---
Study Study Date:12/02/2016 STUDY CONCLUSIONS SUMMARY - Procedure narrative: Image quality was fair. The study was technically limited due to poor acoustic window availability. - Left ventricle: The cavity size was normal. Systolic function was probably normal. The estimated ejection fraction was in the range of 55% to 60%. Left ventricular diastolic function parameters were normal for the patient's age. If LV function is below 40, please consider prescribing an ACEI or ARB or document rationale for non-use. PROCEDURE DATA STUDY STATUS: Elective. Procedure: Transthoracic echocardiography. Image quality was fair. The study was technically limited due to poor acoustic window availability. Scanning was performed from the parasternal, apical, and subcostal acoustic windows. Study completion: The patient tolerated the procedure well. Transthoracic echocardiography. M-mode, complete 2D, complete spectral Doppler, and color Doppler. Height: Height: 64in. Weight: Weight: 144.7lb. Body mass index: BMI: 24.9kg/m^2. Body surface area: BSA: 1.71m^2. Patient status: Inpatient. CARDIAC ANATOMY LEFT VENTRICLE: The cavity size was normal. Systolic function was probably normal. The estimated ejection fraction was in the range of 55% to 60%. Images were inadequate for LV wall motion assessment. Left ventricular diastolic function parameters were normal for the patient's age. AORTIC VALVE: The valve appears to be grossly normal. Doppler: There was no stenosis. No significant regurgitation. Valve area: 2.51cm^2 (Vmax). Indexed valve area: 1.47cm^2/m^2 (Vmax). MITRAL VALVE: The valve appears to be grossly normal. Doppler: There was no evidence for stenosis. No significant regurgitation. LEFT ATRIUM: The atrium was normal in size. RIGHT VENTRICLE: The cavity size was normal. Systolic function was normal. PULMONIC VALVE: Not well visualized. TRICUSPID VALVE: The valve appears to be grossly normal. Doppler: There was no evidence for stenosis. Trace regurgitation. Patient weight: 144.7lb _Ejection fraction:_ 65-75% _Fractional shortening:_ 32% up to 5Kg 5-11.5Kg 11.6-22.9Kg 23-45Kg 45-57Kg Aortic Root 7-13 <17 13-22 17-27 17-27 LA diam 6-13 <23 24-38 33-47 37-40 RVID 10-17 7-15 7-15 7-18 8-17 LVIDd 12-22 <32 24-38 33-47 37-40 LVPW 2-4 3-6 5-7 6-8 7-8 IVS 2-4 3-6 5-7 6-8 7-8 BASIC MEASUREMENTS ADULT NORMAL Left ventricle LV internal dimension, ED, chordal *42.8 mm 43-52 level, PLAX LV internal dimension, ES, chordal 32.8 mm 23-38 level, PLAX Fractional shortening, chordal level, *23 % >29 PLAX LV posterior wall thickness, ED 7.85 mm IVS/LVPW ratio, ED 0.93 <1.3 Ventricular septum Septal thickness, ED 7.31 mm Aortic valve Leaflet separation *14 mm 15-26 BASIC MEASUREMENTS ADULT NORMAL Aortic valve Leaflet separation *14 mm 15-26 Aorta Root diameter, ED 23 mm 20-37 Left atrium Anterior-posterior dimension, ES 31 mm 19-40 Anterior-posterior dimension index, ES 1.81 cm/m^2 <2.2 LA/aortic root ratio 1.35 DOPPLER MEASUREMENTS ADULT NORMAL Aortic valve Peak velocity, S 125 cm/s Valve area, Vmax 2.51 cm^2 Valve area index, Vmax 1.47 cm^2/m^2 Mitral valve Peak E-wave velocity 62.2 cm/s Peak A-wave velocity 85.9 cm/s Deceleration time *134 ms 150-230 Peak E/A ratio 0.7 Pulmonic valve Peak velocity, S 85.5 cm/s LEGEND: Mean values are shown as u=mean value. Asterisk (*) perez values outside specified normal range. Prepared and signed by Ag Roy [id number]
--- NOTE | 2016-12-02 15:13 | PD.ONC.PN ---
Subjective Subjective Remarks Afebrile overnight. Pt sitting up in bed eating lunch. She tells me she just returned from radiation. She states she feels tired today. Per RN she went into afib last night. Her SOB is improved, on 2L NC.. Objective Data Date Time Temp Pulse Resp B/P Pulse Ox O2 Delivery O2 Flow Rate FiO2 12/02/16 12:00 96.0 73 24 140/89 97 12/02/16 08:00 97.9 73 20 136/82 97 12/02/16 04:00 Nasal Cannula 2.50 12/02/16 03:30 97.5 97 24 133/88 94 12/02/16 02:30 97.9 120 18 104/83 97 12/02/16 01:33 96 Nasal Cannula 2.00 12/02/16 01:21 96 Nasal Cannula 2.00 12/02/16 01:20 148 12/02/16 01:19 96 Room Air 21 12/02/16 01:10 94 Room Air 12/02/16 01:09 98 Nasal Cannula 2.00 12/01/16 23:20 97.8 88 24 149/98 97 12/01/16 21:27 95 Nasal Cannula 2.00 12/01/16 20:18 97.4 94 24 161/89 96 12/01/16 20:04 104 12/01/16 20:00 Nasal Cannula 2.00 12/01/16 16:00 98.1 93 16 157/78 96 12/02/16 12/02/16 12/02/16 07:00 15:00 23:00 Intake Total 930 ml Output Total 3000 ml Balance -2070 ml Result Diagram: 12/02/1631412/02/16314 Laboratory Results Laboratory Tests Test 12/02/16 03:15 White Blood Count 13.0 TH/MM3 Red Blood Count 4.33 MIL/MM3 Hemoglobin 12.9 GM/DL Hematocrit 37.9 % Mean Corpuscular Volume 87.5 FL Mean Corpuscular Hemoglobin 29.8 PG Mean Corpuscular Hemoglobin 34.1 % Concent Red Cell Distribution Width 14.0 % Platelet Count 485 TH/MM3 Mean Platelet Volume 6.6 FL Neutrophils (%) (Auto) 91.3 % Lymphocytes (%) (Auto) 1.7 % Monocytes (%) (Auto) 6.8 % Eosinophils (%) (Auto) 0.0 % Basophils (%) (Auto) 0.2 % Neutrophils # (Auto) 11.9 TH/MM3 Lymphocytes # (Auto) 0.2 TH/MM3 Monocytes # (Auto) 0.9 TH/MM3 Eosinophils # (Auto) 0.0 TH/MM3 Basophils # (Auto) 0.0 TH/MM3 CBC Comment DIFF FINAL Differential Comment Sodium Level 140 MEQ/L Potassium Level 3.9 MEQ/L Chloride Level 100 MEQ/L Carbon Dioxide Level 36.0 MEQ/L Anion Gap 4 MEQ/L Blood Urea Nitrogen 16 MG/DL Creatinine 0.80 MG/DL Estimat Glomerular Filtration 73 ML/MIN Rate Random Glucose 127 MG/DL Calcium Level 9.0 MG/DL Magnesium Level 1.9 MG/DL Total Creatine Kinase 121 U/L Creatine Kinase MB 2.4 NG/ML Troponin I 0.02 NG/ML Thyroid Stimulating Hormone 0.866 uIU/ML 3rd Gen Imaging Studies Last Impressions Chest X-Ray 11/29/16936 Signed Impressions: Service Date/Time: Tuesday, November 29, 2016 09:58 - CONCLUSION: Homogeneous opacity right lung base consistent with parenchymal consolidation and effusion Alex Alvarado MD CT Angiography 11/29/16936 Signed Impressions: Service Date/Time: Tuesday, November 29, 2016 11:28 - CONCLUSION: 1. Right middle lobe consolidation suspicious for a neoplastic process. 2. A bronchial lesion is suspected. 3. This represents a significant progression. . Iam Yu MD FACR Administered Medications Medications (Trade) Dose Ordered Sig/Félix Route PRN Reason Start Time Stop Time Status Last Admin Dose Admin IV Flush (NS Flush) 2 ml BID IVF 11/29/16 21:00 12/02/16 09:00 IV Flush (NS Flush) 2 ml UNSCH PRN IVF FLUSH AFTER USING IV ACCESS 11/29/16 12:45 12/02/16 03:47 Methylprednisolone Sodium Succinate (SoluMEDROL INJ) 60 mg Q6H IVP 11/29/16 16:00 12/02/16 09:19 Enoxaparin Sodium 40 mg 40 mg Q24H SQ 11/29/16 14:00 12/01/16 16:03 Piperacillin Sod/ Tazobactam Sod (Zosyn 4.5 Gm Premix) 100 ml @ 200 mls/hr Q6H IV 11/29/16 15:00 12/02/16 09:20 Promethazine HCl (Phenergan Inj) 12.5 mg Q6H PRN IM NAUSEA OR VOMITING 11/29/16 16:15 12/02/16 10:55 Benzonatate (Tessalon) 200 mg TID PRN PO COUGH 11/29/16 17:15 12/01/16 22:22 Amlodipine Besylate (Norvasc) 2.5 mg DAILY PO 11/30/16 09:00 12/02/16 09:19 Methadone HCl (Dolophine) 160 mg DAILY@05 PO 11/30/16 05:00 12/02/16 04:58 Temazepam (Restoril) 7.5 mg HS PRN PO INSOMNIA OR MUSCLE SPASM 11/30/16 18:45 12/01/16 20:56 Nicotine (Habitrol 14 Mg Patch.24 Hr) 1 patch DAILY TD 12/01/16 11:30 12/02/16 09:20 Miscellaneous Information 1 HS TD 12/01/16 21:00 12/01/16 21:00 Metoprolol Tartrate (Lopressor) 12.5 mg Q12HR PO 12/02/16 10:30 12/02/16 11:02 Objective Remarks GENERAL: Older female, sitting up in bed in no distress. SKIN: Warm and dry. HEAD: Normocephalic. EYES: No injection or drainage. L eye blindness. NECK: No JVD or lymphadenopathy. CARDIOVASCULAR: +S1/S2. No murmur appreciated. RESPIRATORY: Lungs clear. Exp wheezes. On 2L NC. GASTROINTESTINAL: Abdomen soft, non-tender, nondistended. EXTREMITIES: No edema. NEUROLOGICAL: No obvious focal deficit. Awake, alert, and oriented x3. Assessment/Plan Problem List: (1) Non-small cell carcinoma of right lung, stage 3 Status: Acute Plan: -- Received cycle 2 of Taxol/carboplatin on 11/22. -- Plan for next dose of chemo on 12/06/16 in the clinic. -- On prophylactic Lovenox for DVT prevention Hx/Workup: Pt resently diagnosed with NSCLC after presenting to the ER on with SOB. She received chemotherapy last on 11/22 with Taxol and carboplatin. She developed some worsening SOB and presented back to the ER on 11/29/16 and was found to have R middle lobe consolidation. A CT of abdomen, pelvis and bone scan were unremarkable and showed no evidence of distant mets. (2) Pneumonia Status: Acute Plan: -- On Zosyn -- SOB improving Assessment 61 y/o female with history of NSCLC presents to the ER with SOB. Plan 1. Pt may be transitioned to po antibiotics. 2. Plan for chemo on Tuesday as an outpatient. Continue XRT. 3. Labs in am. Attending Statement The exam, history, and the medical decision-making described in the above note were completed with the assistance of the mid-level provider. I reviewed and agree with the findings presented. I attest that I had a [id number] encounter with the patient on the same day, and personally performed and documented my assessment and findings in the medical record. Had A.fib with RVR last night. Now rate has trended down to 80's when I saw her. Still desat with walking. Likely will need to go home with O2. Discussed with primary team , no contraindication for anticoagulation. Problem Qualifiers (1) Pneumonia: Qualified Code: J18.1 - Pneumonia of right middle lobe due to infectious organism Rose Guadarrama Dec 02, 2016 15:13 Harshil Braxton MD Dec 02, 2016 16:27
[2016-12-02] MEDS: ENOXAPARIN SODIUM 40 MG/0.4 ML SYRINGE SQ SCH (16:42)
[2016-12-02] MEDS: ONDANSETRON HCL 4 MG/2 ML VIAL IV PUSH PRN (16:42)
[2016-12-02] MEDS: WARFARIN SOD 6 MG TAB PO SCH (16:43)
[2016-12-02] MEDS ORDERED: NALOXONE HCL 0.4 MG/ML AMP IV PRN (16:45)
[2016-12-02] MEDS ORDERED: MORPHINE SULFATE 4 MG/ML INJ IV PRN (16:45)
[2016-12-02] MEDS: ACETAMINOPHEN/HYDROcodone 325 MG/7.5 MG TAB PO PRN ×2 (17:04→22:44)
[2016-12-02] MEDS: VANCOMYCIN 1,000 MG/NS 250 ML IV SCH ×2 (20:42)
[2016-12-02] MEDS: TEMAZEPAM 7.5 MG CAP PO PRN (20:42)
[2016-12-02] MEDS: REMOVE OLD NICODERM (NICOTINE) PATCH TD SCH (20:42)
[2016-12-03] MEDS: PIPERACIL-TAZO 4.5 GM PREMIX 100 ML IV SCH ×4 (04:46→22:21)
[2016-12-03] MEDS: ONDANSETRON HCL 4 MG/2 ML VIAL IV PUSH PRN ×2 (04:46→11:50)
[2016-12-03] MEDS: METHADONE HCL 10 MG TAB PO SCH (04:47)
[2016-12-03] MEDS: methylPREDNISolone SOD SUCC 125 MG/2 ML VIAL IVP SCH ×4 (04:47→22:20)
[2016-12-03 05:16] VITALS: BP 154/92; PULSE 69; RESP 24; TEMP 97.3; O2SAT 95
[2016-12-03 06:46] LABS: INTERNATIONAL NORMALIZED RATIO 1.2 RATIO
--- NOTE | 2016-12-03 06:54 | EKG ---
Date Performed: 12/02/2016 Time Performed: 02:50:56 PTAGE: 61 years EKG: Atrial fibrillation with rapid ventricular response ST junctional depression is nonspecific Abnormal ECG NO PREVIOUS TRACING DOCTOR: Dimitry Lara Interpretating Date/Time 12/03/2016 06:51:39
[2016-12-03 06:57] LABS: AUTOMATED NEUTROPHIL # 10.6 TH/MM3 (1.8-7.7); BASOPHIL % 0.1 % (0.0-2.0); HEMATOCRIT 39.5 % (35.0-46.0); HEMO FLAGS DIFF FINAL; LYMPH % 1.9 % (9.0-44.0); LYMPHOCYTE # 0.2 TH/MM3 (1.0-4.8); MEAN CELL VOLUME 89.3 FL (80.0-100.0); MEAN CORPUSCULAR HEMOGLOBIN 29.3 PG (27.0-34.0); MEAN CORPUSCULAR HGB CONC 32.8 % (32.0-36.0); MONO % 7.1 % (0.0-8.0); NEUT % 90.9 % (16.0-70.0); PLATELET COUNT 449 TH/MM3 (150-450); RED BLOOD COUNT 4.42 MIL/MM3 (4.00-5.30); RED CELL DISTRIBUTION WIDTH 14.1 % (11.6-17.2); WHITE BLOOD COUNT 11.7 TH/MM3 (4.0-11.0)
[2016-12-03 08:17] VITALS: BP 159/96; PULSE 62; PULSE 66; RESP 20; TEMP 97.4; O2SAT 96
--- NOTE | 2016-12-03 08:34 | HHI.FPPN ---
Subjective Remarks Patient seen and examined this morning. Afebrile vital signs stable. Plan for family to purchase oxygen tank for home. Patient understands the need to be started on anticoagulation, and understands that she will have to be monitored on her warfarin until she reaches an appropriate INR level prior to discharge. She agrees to this plan of care. Her main complaint is some nausea that has improved since the combo of Zofran and Phenergan. She also had some mild chest pain that lasted for a couple minutes yesterday but since then has resided. Overall she is doing better at this time and is looking forward to getting out of the hospital once her INR is between 2-3. Endorses: Nausea, mild shortness of breath Denies: Fever, chills, vomiting, chest pain, headache, abdominal pain, calf pain (Hugh Reina MD R2) Objective Vitals Vital Signs Date Time Temp Pulse Resp B/P Pulse Ox O2 Delivery O2 Flow Rate FiO2 12/03/16 08:17 97.4 66 20 159/96 96 12/03/16 05:16 97.3 69 24 154/92 95 12/02/16 23:46 97.8 63 24 140/85 94 12/02/16 20:00 76 12/02/16 19:45 Nasal Cannula 3.00 21 12/02/16 19:35 97.2 78 24 159/88 96 12/02/16 16:00 97.8 84 24 151/81 95 12/02/16 12:00 96.0 73 24 140/89 97 I/O 12/02/16 12/02/16 12/02/16 12/03/16 12/03/16 12/03/16 07:00 15:00 23:00 07:00 15:00 23:00 Intake Total 930 ml 720 ml 1198 ml 600 ml Output Total 3000 ml 800 ml 400 ml 1900 ml Balance -2070 ml -80 ml 798 ml -1300 ml Intake Oral 730 ml 720 ml 840 ml 480 ml IV Total 200 ml 358 ml 120 ml Output Urine Total 3000 ml 800 ml 400 ml 1900 ml # Bowel Movements 1 1 0 0 (Hugh Reina MD R2) Result Diagram: 12/03/16 0525 12/02/16 2445 Other Results INR: 1.2 Imaging Last Impressions Chest X-Ray 11/29/16936 Signed Impressions: Service Date/Time: Tuesday, November 29, 2016 09:58 - CONCLUSION: Homogeneous opacity right lung base consistent with parenchymal consolidation and effusion Alex Alvarado MD CT Angiography 11/29/16936 Signed Impressions: Service Date/Time: Tuesday, November 29, 2016 11:28 - CONCLUSION: 1.Right middle lobe consolidation suspicious for a neoplastic process. 2. A bronchial lesion is suspected. 3. This represents a significant progression. . Iam Yu MD FACR Objective Remarks O. CONSTITUTIONAL/GEN: normally nourished, in NAD. EYES: conjunctiva normal, lens of left eye is opacified secondary previous retinal detachment. LUNGS: Increased respiratory effort. BS decreased with prolonged expiratory phase a mild wheezing CARDIOVASCULAR: Regular rate and rhythm. No significant edema. GI/ABD: soft without masses, without organomegaly. NEURO: No focal deficits. MUSC: back is normal in appearance. Extremities are normal in appearance. No clubbing. PSYCH/MENTAL STATUS: Alert and oriented x 3. Medications and IVs Current Medications Medications (Trade) Dose Ordered Sig/Félix Route Start Time Stop Time Status Last Admin (NS Flush) 2 ml BID IVF 11/29/16 21:00 12/02/16 20:42 (NS Flush) 2 ml UNSCH PRN IVF 11/29/16 12:45 12/02/16 03:47 (SoluMEDROL INJ) 60 mg Q6H IVP 11/29/16 16:00 12/03/16 04:47 Enoxaparin Sodium 40 mg 40 mg Q24H SQ 11/29/16 14:00 12/02/16 16:42 (Zosyn 4.5 Gm Premix) 100 ml @ 200 mls/hr Q6H IV 11/29/16 15:00 12/03/16 04:46 (Phenergan Inj) 12.5 mg Q6H PRN IM 11/29/16 16:15 12/02/16 18:17 (Tylenol) 650 mg Q4H PRN PO 11/29/16 17:15 (Tessalon) 200 mg TID PRN PO 11/29/16 17:15 12/01/16 22:22 (Norvasc) 2.5 mg DAILY PO 11/30/16 09:00 12/02/16 09:19 (Dolophine) 160 mg DAILY@05 PO 11/30/16 05:00 12/03/16 04:47 (Restoril) 7.5 mg HS PRN PO 11/30/16 18:45 12/02/16 20:42 (Vasotec Inj) 1.25 mg Q6H PRN IV 12/01/16 10:30 (Habitrol 14 Mg Patch.24 Hr) 1 patch DAILY TD 12/01/16 11:30 12/02/16 09:20 (Proair Hfa Inh) 1 puff Q4H PRN INH 12/01/16 10:45 Miscellaneous Information 1 1 HS TD 12/01/16 21:00 12/02/16 20:42 (Vancomycin Consult Pharmacy) 0 ml @ 0 mls/hr UNSCH OTHER 12/02/16 07:15 (Coumadin) 6 mg DAILY@16 PO 12/02/16 16:00 12/02/16 16:43 Metoprolol Tartrate 12.5 mg 12.5 mg Q12HR PO 12/02/16 10:30 12/02/16 20:42 (Vancomycin Inj/ NS 250 ml Inj) 250 ml @ 250 mls/hr Q12H IV 12/02/16 21:00 12/02/16 20:42 Miscellaneous Information SPECIFIC LAB TO BE DRAWN:VANCOMYCIN TROUGH DATE TO... ONCE ONCE XX 12/04/16 08:45 12/04/16 08:46 (Zofran Inj) 4 mg Q6HR PRN IV PUSH 12/02/16 16:00 12/03/16 04:46 (Clarence 7.5-325 Mg) 1 tab Q4H PRN PO 12/02/16 16:45 12/02/16 22:44 (Narcan Inj) 0.4 mg UNSCH PRN IV 12/02/16 16:45 (Hugh Reina MD R2) A/P Assessment and Plan 61 y/o female with history of COPD and recently diagnosed lung cancer presents with shortness of breath. Treating pneumonia and COPD exacerbation. Discharge Planning Plan for discharge upon obtaining appropriate INR level for anticoagulation between 23 (Hugh Reina MD R2) Attending Attestation Case reviewed and discussed with the resident team. Agree with plan of care as discussed with me and documented in the resident note. (Elvis Mcgee MD) Problem List: (1) Pneumonia Status: Acute Plan: CXR shows homogenous opacity right lung base consistent with parenchymal consolidation and effusion Pulmonary CTA shows right middle lobe consolidation, bronchial lesion Flu negative. Oxygen walk test, patient desats to 88%, will need oxygen at home -Continue Vancomycin 20 mg/kg. Pharmacy consulted -Zosyn 4.5 g IV every 6 hours -Duonebs Q 6 hours scheduled. -Albuterol Q1 hr PRN SOB. -Supplemental O2 and pulse ox monitoring. -Acapella, incentive spirometer. -Tylenol, Tessalon, and Mucinex available as PRNs. (2) Atrial fibrillation Status: Acute Plan: Episode of atrial fibrillation overnight. Asymptomatic. Troponin negative. TSH normal CHADS2-vasc score 3, requiring anticoagulation. Paroxysmal in nature. Regular rate and rhythm this morning on exam. Plan -2-D Echo of heart: 5560% ejection fraction -Starting warfarin 6mg daily -INR: 1.2 as of today -Metoprolol 12.5mg BID -Monitor PT/INR, until therapeutic (2-3). (3) Lung cancer Status: Acute Plan: History of right middle lobe lung cancer Stage 3A non-small cell lung cancer - Oncology consulted, Dr. Braxton, appreciate recs - Restart chemotherapy on Tuesday - Plan as above for pneumonia (4) HTN (hypertension) Status: Acute Plan: BP 119/65 on admission Continue home meds: amlodipine 2.5mg daily (5) History of drug abuse Status: Acute Plan: Continue methadone 160mg daily (6) FEN Status: Acute Plan: Fluids: none. tolerating PO Electrolytes: wnl, continue to monitor Nutrition: regular diet DVT ppx: lovenox 40mg daily (Hugh Reina MD R2) Problem Qualifiers (1) Pneumonia: Qualified Code: J18.1 - Pneumonia of right middle lobe due to infectious organism (2) Atrial fibrillation: Qualified Code: I48.0 - Paroxysmal atrial fibrillation (3) Lung cancer: Qualified Code: C34.2 - Malignant neoplasm of middle lobe of right lung (4) HTN (hypertension): Qualified Code: I10 - Essential hypertension Hugh Reina MD R2 Dec 03, 2016 08:34 Elvis Mcgee MD Dec 03, 2016 14:58
[2016-12-03] MEDS: SODIUM CHLORIDE 0.9% FLUSH 5 ML FLUSH IVF SCH ×2 (09:00→22:21)
[2016-12-03] MEDS: PROMETHAZINE INJ 25 MG/ML VIAL IM PRN (09:38)
[2016-12-03] MEDS: NICOTINE 14 MG/24 HR PATCH TD SCH (09:38)
[2016-12-03] MEDS: METOPROLOL TARTRATE 25 MG TAB PO SCH ×2 (09:38→22:20)
[2016-12-03] MEDS: amLODIPine BESYLATE 5 MG TAB PO SCH (09:38)
[2016-12-03] MEDS: ACETAMINOPHEN/HYDROcodone 325 MG/7.5 MG TAB PO PRN ×3 (09:39→22:20)
[2016-12-03 09:43] VITALS: O2SAT 96
[2016-12-03] MEDS: VANCOMYCIN 1,000 MG/NS 250 ML IV SCH ×4 (10:07→22:21)
[2016-12-03 10:10] LABS: POTASSIUM 3.6 MEQ/L (3.5-5.1)
--- NOTE | 2016-12-03 11:28 | PD.ONC.PN ---
Subjective Subjective Remarks Afebrile overnight. Patient getting ready to go for radiation. She is short of breath as she has been running around the room trying to get ready. She is otherwise without complaints. Objective Data Date Time Temp Pulse Resp B/P Pulse Ox O2 Delivery O2 Flow Rate FiO2 12/03/16 08:17 62 12/03/16 08:17 97.4 66 20 159/96 96 12/03/16 05:16 97.3 69 24 154/92 95 12/02/16 23:46 97.8 63 24 140/85 94 12/02/16 20:00 76 12/02/16 19:45 Nasal Cannula 3.00 21 12/02/16 19:35 97.2 78 24 159/88 96 12/02/16 16:00 97.8 84 24 151/81 95 12/02/16 12:00 96.0 73 24 140/89 97 12/03/16 12/03/16 12/03/16 07:00 15:00 23:00 Intake Total 600 ml Output Total 1900 ml Balance -1300 ml Result Diagram: 12/03/16 0525 12/03/16 0910 Laboratory Results Laboratory Tests Test 12/03/16 12/03/16 05:25 09:10 White Blood Count 11.7 TH/MM3 Red Blood Count 4.42 MIL/MM3 Hemoglobin 13.0 GM/DL Hematocrit 39.5 % Mean Corpuscular Volume 89.3 FL Mean Corpuscular Hemoglobin 29.3 PG Mean Corpuscular Hemoglobin 32.8 % Concent Red Cell Distribution Width 14.1 % Platelet Count 449 TH/MM3 Mean Platelet Volume 6.9 FL Neutrophils (%) (Auto) 90.9 % Lymphocytes (%) (Auto) 1.9 % Monocytes (%) (Auto) 7.1 % Eosinophils (%) (Auto) 0.0 % Basophils (%) (Auto) 0.1 % Neutrophils # (Auto) 10.6 TH/MM3 Lymphocytes # (Auto) 0.2 TH/MM3 Monocytes # (Auto) 0.8 TH/MM3 Eosinophils # (Auto) 0.0 TH/MM3 Basophils # (Auto) 0.0 TH/MM3 CBC Comment DIFF FINAL Differential Comment Prothrombin Time 13.0 SEC Prothromb Time International 1.2 RATIO Ratio Sodium Level 135 MEQ/L Potassium Level 3.6 MEQ/L Chloride Level 91 MEQ/L Carbon Dioxide Level 38.0 MEQ/L Anion Gap 6 MEQ/L Blood Urea Nitrogen 18 MG/DL Creatinine 0.78 MG/DL Estimat Glomerular Filtration 75 ML/MIN Rate Random Glucose 96 MG/DL Calcium Level 8.3 MG/DL Administered Medications Medications (Trade) Dose Ordered Sig/Félix Route PRN Reason Start Time Stop Time Status Last Admin Dose Admin IV Flush (NS Flush) 2 ml BID IVF 11/29/16 21:00 12/03/16 09:00 IV Flush (NS Flush) 2 ml UNSCH PRN IVF FLUSH AFTER USING IV ACCESS 11/29/16 12:45 12/02/16 03:47 Methylprednisolone Sodium Succinate (SoluMEDROL INJ) 60 mg Q6H IVP 11/29/16 16:00 12/03/16 09:38 Enoxaparin Sodium 40 mg 40 mg Q24H SQ 11/29/16 14:00 12/02/16 16:42 Piperacillin Sod/ Tazobactam Sod (Zosyn 4.5 Gm Premix) 100 ml @ 200 mls/hr Q6H IV 11/29/16 15:00 12/03/16 09:39 Promethazine HCl (Phenergan Inj) 12.5 mg Q6H PRN IM NAUSEA OR VOMITING 11/29/16 16:15 12/03/16 09:38 Benzonatate (Tessalon) 200 mg TID PRN PO COUGH 11/29/16 17:15 12/01/16 22:22 Amlodipine Besylate (Norvasc) 2.5 mg DAILY PO 11/30/16 09:00 12/03/16 09:38 Methadone HCl (Dolophine) 160 mg DAILY@05 PO 11/30/16 05:00 12/03/16 04:47 Temazepam (Restoril) 7.5 mg HS PRN PO INSOMNIA OR MUSCLE SPASM 11/30/16 18:45 12/02/16 20:42 Nicotine (Habitrol 14 Mg Patch.24 Hr) 1 patch DAILY TD 12/01/16 11:30 12/03/16 09:38 Miscellaneous Information 1 HS TD 12/01/16 21:00 12/02/16 20:42 Warfarin Sodium (Coumadin) 6 mg DAILY@16 PO 12/02/16 16:00 12/02/16 16:43 Metoprolol Tartrate 12.5 mg 12.5 mg Q12HR PO 12/02/16 10:30 12/03/16 09:38 Vancomycin HCl/ Sodium Chloride (Vancomycin Inj/ NS 250 ml Inj) 250 ml @ 250 mls/hr Q12H IV 12/02/16 21:00 12/03/16 10:07 Ondansetron HCl (Zofran Inj) 4 mg Q6HR PRN IV PUSH NAUSEA OR VOMITING 12/02/16 16:00 12/03/16 04:46 Acetaminophen/ Hydrocodone Bitart ([place] 7.5-325 Mg) 1 tab Q4H PRN PO PAIN SCALE 6 TO 10 12/02/16 16:45 12/03/16 09:39 Objective Remarks GENERAL: Middle aged female, sitting up on bed on 2L O2 via NC. SKIN: Warm and dry. HEAD: Normocephalic. EYES: No injection or drainage. NECK: Supple, trachea midline. CARDIOVASCULAR: +S1/S2 RESPIRATORY: diminished at bases. occasional rhonchi. GASTROINTESTINAL: Abdomen soft, non-tender, nondistended. EXTREMITIES: No cyanosis NEUROLOGICAL: awake and alert. normal speech. Assessment/Plan Problem List: (1) Non-small cell carcinoma of right lung, stage 3 Status: Acute Plan: -- Received cycle 2 of Taxol/carboplatin on 11/22. -- Plan for next dose of chemo on 12/06/16 in the clinic or inpatient if still in hospital. -- On prophylactic Lovenox Hx/Workup: Pt resently diagnosed with NSCLC after presenting to the ER on with SOB. She received chemotherapy last on 11/22 with Taxol and carboplatin. She developed some worsening SOB and presented back to the ER on 11/29/16 and was found to have R middle lobe consolidation. A CT of abdomen, pelvis and bone scan were unremarkable and showed no evidence of distant mets. (2) Pneumonia Status: Acute Plan: -- On Zosyn + Vanco -- SOB improving Assessment 61 y/o female with history of NSCLC presents to the ER with SOB. Plan 1. monitor INR 2. if still inpatient on Tuesday will give chemo inpatient, if d/c over the weekend, will give outpatient. 3. continue XRT Attending Statement The exam, history, and the medical decision-making described in the above note were completed with the assistance of the mid-level provider. I reviewed and agree with the findings presented. I attest that I had a [id number] encounter with the patient on the same day, and personally performed and documented my assessment and findings in the medical record. Feeling better. Still has dyspnea on exertion. No CP. Plan to give chemo Tuesday. Problem Qualifiers (1) Pneumonia: Qualified Code: J18.1 - Pneumonia of right middle lobe due to infectious organism Kyra Pearce Dec 03, 2016 11:27 Harshil Braxton MD Dec 03, 2016 13:19
[2016-12-03 12:45] VITALS: BP 162/99; PULSE 71; RESP 18; TEMP 97.4; O2SAT 99
[2016-12-03] MEDS: WARFARIN SOD 6 MG TAB PO SCH (15:05)
[2016-12-03] MEDS: ENOXAPARIN SODIUM 40 MG/0.4 ML SYRINGE SQ SCH (15:06)
[2016-12-03] MEDS ORDERED: WARFARIN SOD 2.5 MG TAB PO ONE (16:00)
[2016-12-03 16:04] VITALS: BP 158/98; PULSE 74; RESP 20; TEMP 97.3; O2SAT 95
[2016-12-03 20:00] VITALS: BP 157/95; PULSE 87; PULSE 90; RESP 17; TEMP 97.5; O2SAT 94
[2016-12-03] MEDS: REMOVE OLD NICODERM (NICOTINE) PATCH TD SCH (21:00)
[2016-12-03] MEDS: TEMAZEPAM 7.5 MG CAP PO PRN (22:20)
[2016-12-04] VITALS: BP 168/91; PULSE 69; RESP 17; TEMP 97.4; O2SAT 99
[2016-12-04] MEDS: PIPERACIL-TAZO 4.5 GM PREMIX 100 ML IV SCH ×2 (03:20→08:48)
[2016-12-04] MEDS: methylPREDNISolone SOD SUCC 125 MG/2 ML VIAL IVP SCH ×2 (03:20→08:50)
[2016-12-04 04:00] VITALS: BP 162/88; PULSE 62; RESP 16; TEMP 97.4; O2SAT 98
[2016-12-04] MEDS: ONDANSETRON HCL 4 MG/2 ML VIAL IV PUSH PRN (04:57)
[2016-12-04] MEDS: METHADONE HCL 10 MG TAB PO SCH (04:58)
[2016-12-04 07:14] LABS: HEMATOCRIT 41.1 % (35.0-46.0); MEAN CELL VOLUME 88.8 FL (80.0-100.0); MEAN CORPUSCULAR HEMOGLOBIN 29.4 PG (27.0-34.0); MEAN CORPUSCULAR HGB CONC 33.1 % (32.0-36.0); PLATELET COUNT 450 TH/MM3 (150-450); RED BLOOD COUNT 4.62 MIL/MM3 (4.00-5.30); RED CELL DISTRIBUTION WIDTH 13.8 % (11.6-17.2); REVIEW FLAG FINAL; WHITE BLOOD COUNT 11.1 TH/MM3 (4.0-11.0)
[2016-12-04 07:18] LABS: INTERNATIONAL NORMALIZED RATIO 2.7 RATIO; PROTHROMBIN TIME - PATIENT 31.5 SEC (9.8-11.6)
[2016-12-04 08:25] VITALS: BP 142/88; PULSE 61; RESP 19; TEMP 97.3; O2SAT 97
[2016-12-04] MEDS ORDERED: PHARMACY ORDERED LAB XX ONE (08:45)
[2016-12-04] MEDS: VANCOMYCIN 1,000 MG/NS 250 ML IV SCH ×2 (08:49)
[2016-12-04] MEDS: METOPROLOL TARTRATE 25 MG TAB PO SCH (08:49)
[2016-12-04] MEDS: SODIUM CHLORIDE 0.9% FLUSH 5 ML FLUSH IVF SCH (08:49)
[2016-12-04] MEDS: amLODIPine BESYLATE 5 MG TAB PO SCH (08:50)
[2016-12-04] MEDS: NICOTINE 14 MG/24 HR PATCH TD SCH (08:50)
[2016-12-04] MEDS ORDERED: OXYGENTANK NAS.CANULA (10:53)
--- NOTE | 2016-12-04 11:14 | HHI.FPPN ---
Subjective Remarks Patient seen and examined this morning. Denies any complaints/concerns this morning. Reports breathing well. Denies any chest pain or palpitations. INR is 2.7 today. Feels back to baseline. Denies headache, fever/chills, abdominal pain , leg pain. (Jacob Sinclair MD R1) Objective Vitals Vital Signs Date Time Temp Pulse Resp B/P Pulse Ox O2 Delivery O2 Flow Rate FiO2 12/04/16 08:25 97.3 61 19 142/88 97 12/04/16 04:00 97.4 62 16 162/88 98 12/04/16 00:00 97.4 69 17 168/91 99 12/03/16 20:45 Nasal Cannula 3.00 21 12/03/16 20:00 97.5 87 17 157/95 94 12/03/16 20:00 90 12/03/16 16:04 97.3 74 20 158/98 95 12/03/16 12:45 97.4 71 18 162/99 99 I/O 12/03/16 12/03/16 12/03/16 12/04/16 12/04/16 12/04/16 07:00 15:00 23:00 07:00 15:00 23:00 Intake Total 600 ml 600 ml 1095 ml 210 ml Output Total 1900 ml 400 ml 1000 ml 350 ml Balance -1300 ml 200 ml 95 ml -140 ml Intake Oral 480 ml 600 ml 740 ml 210 ml IV Total 120 ml 355 ml Output Urine Total 1900 ml 400 ml 1000 ml 350 ml # Bowel Movements 0 0 1 (Jacob Sinclair MD R1) Result Diagram: 12/04/16 0622 12/03/16 0910 Objective Remarks O. CONSTITUTIONAL/GEN: normally nourished, in NAD. EYES: conjunctiva normal, lens of left eye is opacified secondary previous retinal detachment. LUNGS: Increased respiratory effort. BS decreased with prolonged expiratory phase a wheezing throughout CARDIOVASCULAR: Regular rate and rhythm. No significant edema. GI/ABD: soft without masses, without organomegaly. NEURO: No focal deficits. MUSC: back is normal in appearance. Extremities are normal in appearance. No clubbing. PSYCH/MENTAL STATUS: Alert and oriented x 3. (Jacob Sinclair MD R1) A/P Assessment and Plan 61 y/o female with history of COPD and recently diagnosed lung cancer presents with shortness of breath. Treating pneumonia and COPD exacerbation. Discharge Planning Plan for discharge upon obtaining appropriate INR level for anticoagulation between 23 (Jacob Sinclair MD R1) Attending Attestation Case reviewed and discussed with the resident team. Agree with plan of care as discussed with me and documented in the resident note. (Elvis Mcgee MD) Problem List: (1) Pneumonia Status: Acute Plan: CXR shows homogenous opacity right lung base consistent with parenchymal consolidation and effusion Pulmonary CTA shows right middle lobe consolidation, bronchial lesion Flu negative. Oxygen walk test, patient desats to 88%, will need oxygen at home -Continue Vancomycin 20 mg/kg. Pharmacy consulted -Zosyn 4.5 g IV every 6 hours -Duonebs Q 6 hours scheduled. -Albuterol Q1 hr PRN SOB. -Supplemental O2 and pulse ox monitoring. -Acapella, incentive spirometer. -Tylenol, Tessalon, and Mucinex available as PRNs. (2) Atrial fibrillation Status: Acute Plan: Paroxysmal Afib. Asymptomatic. CHADS2-vasc score 3, requiring anticoagulation. Paroxysmal in nature. Regular rate and rhythm this morning on exam. Plan -2-D Echo of heart: 5560% ejection fraction -Warfarin 6mg daily -INR: 2.7 today -Metoprolol 12.5mg BID -Monitor PT/INR, until therapeutic (2-3). (3) Lung cancer Status: Acute Plan: History of right middle lobe lung cancer Stage 3A non-small cell lung cancer - Oncology consulted, Dr. Braxton, appreciate recs - Restart chemotherapy on Tuesday - Plan as above for pneumonia (4) HTN (hypertension) Status: Acute Plan: BP 119/65 on admission Continue home meds: amlodipine 2.5mg daily (5) History of drug abuse Status: Acute Plan: Continue methadone 160mg daily (6) FEN Status: Acute Plan: Fluids: none. tolerating PO Electrolytes: wnl, continue to monitor Nutrition: regular diet DVT ppx: lovenox 40mg daily (Jacob Sinclair MD R1) Problem Qualifiers (1) Pneumonia: Qualified Code: J18.1 - Pneumonia of right middle lobe due to infectious organism (2) Atrial fibrillation: Qualified Code: I48.0 - Paroxysmal atrial fibrillation (3) Lung cancer: Qualified Code: C34.2 - Malignant neoplasm of middle lobe of right lung (4) HTN (hypertension): Qualified Code: I10 - Essential hypertension Jacob Sinclair MD R1 Dec 04, 2016 11:14 Elvis Mcgee MD Dec 04, 2016 14:37
[2016-12-04 12:02] VITALS: BP 158/80; PULSE 64; RESP 19; TEMP 96.6; O2SAT 96
[2016-12-04 12:37] VITALS: O2SAT 93
--- NOTE | 2016-12-04 12:45 | HHI.DCPOC ---
Discharge Care Plan Diagnosis: (1) HTN (hypertension) (2) Pneumonia (3) Atrial fibrillation (4) Anticoagulation monitoring, INR range 2-3 (5) Non-small cell carcinoma of right lung, stage 3 (6) COPD exacerbation Goals to Promote Your Health * To prevent worsening of your condition and complications * To maintain your health at the optimal level Directions to Meet Your Goals Take your medications as prescribed Follow your dietary instruction Follow activity as directed Keep your appointments as scheduled Take your immunizations and boosters as scheduled If your symptoms worsen call your PCP, if no PCP go to Urgent Care Center or Emergency Room Smoking is Dangerous to Your Health. Avoid second hand smoke Call the 24-hour hour crisis hotline for domestic abuse at Jacob Sinclair MD R1 Dec 04, 2016 12:45
[2016-12-04] MEDS ORDERED: COUM2.5T PO (13:25)
[2016-12-04] MEDS ORDERED: LEVA500T PO (13:25)
[2016-12-04] MEDS ORDERED: PRED10PA2 PO (13:26)
[2016-12-04] MEDS ORDERED: METO25TA3 PO (13:26)
[2016-12-04] MEDS: ENOXAPARIN SODIUM 40 MG/0.4 ML SYRINGE SQ SCH (13:28)
[2016-12-04] MEDS ORDERED: TEMA7.5C9 PO (15:10)
[2016-12-05] MEDS ORDERED: PHARMACY ORDERED LAB XX ONE (08:45)
--- NOTE | 2016-12-06 11:34 | HHI.DS ---
Discharge Summary Admission Date Nov 29, 2016 at 12:21 Discharge Date: Dec 04, 2016 Admitting Diagnosis sepsis, right middle lobe pneumonia, shortness of breath (1) Pneumonia Diagnosis: Principal Plan: CXR shows homogenous opacity right lung base consistent with parenchymal consolidation and effusion Pulmonary CTA shows right middle lobe consolidation, bronchial lesion Flu negative. Oxygen walk test, patient desats to 88%, will need oxygen at home -Continue Vancomycin 20 mg/kg. Pharmacy consulted -Zosyn 4.5 g IV every 6 hours -Duonebs Q 6 hours scheduled. -Albuterol Q1 hr PRN SOB. -Supplemental O2 and pulse ox monitoring. -Acapella, incentive spirometer. -Tylenol, Tessalon, and Mucinex available as PRNs. (2) Atrial fibrillation Diagnosis: Principal Plan: Paroxysmal Afib. Asymptomatic. CHADS2-vasc score 3, requiring anticoagulation. Paroxysmal in nature. Regular rate and rhythm this morning on exam. Plan -2-D Echo of heart: 5560% ejection fraction -Warfarin 6mg daily -INR: 2.7 today -Metoprolol 12.5mg BID -Monitor PT/INR, until therapeutic (2-3). (3) Lung cancer Diagnosis: Principal Plan: History of right middle lobe lung cancer Stage 3A non-small cell lung cancer - Oncology consulted, Dr. Braxton, appreciate recs - Restart chemotherapy on Tuesday - Plan as above for pneumonia (4) HTN (hypertension) Diagnosis: Secondary Plan: BP 119/65 on admission Continue home meds: amlodipine 2.5mg daily (5) History of drug abuse Diagnosis: Secondary Plan: Continue methadone 160mg daily (6) FEN Diagnosis: Secondary Plan: Fluids: none. tolerating PO Electrolytes: wnl, continue to monitor Nutrition: regular diet DVT ppx: lovenox 40mg daily [facility] Oncology Brief History 61 y/o female presents for SOB. She was recently diagnosed with lung cancer and was here today at the oncology for therapy. Developed SOB this morning during appointment. She had been doing fine since last discharge. Also felt general malaise. Endorses fever/chills, occasional chest pain, SOB. History of pneumonia in the past, was admitted last month. Got breathing treatments in ED and was on Bipap, which she states has improved her breathing. Endorses productive cough. History of COPD and significant smoking history. Denies any sick contacts. No hemoptysis. Denies abdominal pain, constipation/diarrhea, leg pain, night sweats. CBC/BMP: 12/04/16 0622 12/03/16 0910 Significant Findings Laboratory Tests Test 12/04/16 06:22 White Blood Count 11.1 TH/MM3 (4.0-11.0) Mean Platelet Volume 6.9 FL (7.0-11.0) Prothrombin Time 31.5 SEC (9.8-11.6) PE at Discharge O. CONSTITUTIONAL/GEN: normally nourished, in NAD. EYES: conjunctiva normal, lens of left eye is opacified secondary previous retinal detachment. LUNGS: Increased respiratory effort. BS decreased with prolonged expiratory phase a wheezing throughout CARDIOVASCULAR: Regular rate and rhythm. No significant edema. GI/ABD: soft without masses, without organomegaly. NEURO: No focal deficits. MUSC: back is normal in appearance. Extremities are normal in appearance. No clubbing. PSYCH/MENTAL STATUS: Alert and oriented x 3. Hospital Course 61 y/o female with history of recently diagnosed lung cancer, COPD presented with shortness of breath. Found to have pneumonia on xray. Pt was started on antibiotics, Vancomycin and Zosyn. Her oncologist, Dr. Braxton was consulted, and scheduled her for continuing chemotherapy after discharge. Patient developed atrial fibrillation during admission, which patient had experienced before, but never formally diagnosed. She was started on warfarin and metoprolol. Her breathing continued to improved and was discharged in stable condition with levaquin for antibiotics. She reached therapeutic range of INR with repeat after discharge on Tuesday. Pt Condition on Discharge: Stable Discharge Disposition: Discharge Home Discharge Instructions DIET: Follow Instructions for: As Tolerated, No Restrictions Activities you can perform: Regular-No Restrictions Follow up Referrals: Oncology - 1 Week with Harshil Braxton MD PCP Follow-up - 1 Week New Orders: PT/INR - 12/06/16 New Medications: Levofloxacin (Levaquin) 500 Mg Tab 500 MG PO DAILY Infection #5 Ref 0 TAB Oxygen tank (Oxygen tank) 1 Ea Tank 2 LITER DIANE.CANULA CONTINUOUS Oxygen Concentrator Portable Gaseous 2 L/min via Nasal Cannula Continuous For 99 months PRN HYPOXEMIA PREVENTION #1 CYLINDER Prednisone (48) 10 mg tab Dose Pack (Prednisone (48) 10 mg tab Dose Pack) 10 Mg Dspk 10 MG PO DIRECTED Inflammation #1 Ref 0 DSPK Temazepam (Restoril) 7.5 Mg Cap 7.5 MG PO HS PRN INSOMNIA #30 Ref 0 CAP Warfarin (Coumadin) 2.5 Mg Tab 2.5 MG PO DAILY Take 1 (2.5mg) tonight (/) Take 2 (5mg) 2/5 Wait until after PT/INR on 12/06 for dosage instructions Prevent Blood Clot #30 Ref 1 TAB Metoprolol Tartrate (Metoprolol Tartrate) 25 Mg Tab 12.5 MG PO Q12HR #60 TAB Continued Medications: Albuterol 18 GM Inh (Ventolin Hfa 18 GM Inh) 90 Mcg/Act Aer 1 PUFF INH Q4H PRN SHORTNESS OF BREATH #1 Ref 0 INHALER Amlodipine (Norvasc) 5 Mg Tab 2.5 MG PO DAILY Blood Pressure Management #30 TAB Budesonide-Formoterol Inh (Symbicort Inh) 160-4.5 Mcg/Act Aero 2 PUFF INH Q12HR Breathing Treatment #1 INHALER Methadone (Methadose) 40 Mg Tab 160 MG PO DAILY Ref 0 TAB Ondansetron Odt (Zofran Odt) 4 Mg Tab 4 MG SL Q6HR PRN Nausea/Vomiting #30 Ref 0 TAB Discontinued Medications: Oxygen tank (Oxygen tank) 1 Ea Tank 2 LITER DIANE.CANULA CONTINUOUS Oxygen Concentrator Portable Gaseous 2 L/min via Nasal Cannula Continuous For 99 months HYPOXEMIA PREVENTION #1 CYLINDER Jacob Sinclair MD R1 Dec 06, 2016 11:34
[2016-12-15] MEDS ORDERED: ONDA1TAB17 PO (15:08)
[2016-12-15] MEDS ORDERED: SYMB160A INH (15:54)
[2016-12-15] MEDS ORDERED: AMLO5 PO (15:54)
[2016-12-15] MEDS ORDERED: VENTAER INH (15:54)
[2016-12-15] MEDS ORDERED: METO25TA3 PO (15:54)
== END 2016-12-04 16:46 | disposition home or self-care (01) | DRG 871 ==
LOC: NEPA 09:31 → NEDA 12:21 → N04B 17:30
PROVIDERS: ADMIT Family Medicine; ATTEND Family Medicine
DX: A41.9 Sepsis, unspecified organism (principal); J18.9 Pneumonia, unspecified organism; J96.02 Acute respiratory failure with hypercapnia; E87.2 Acidosis; C34.31 Malignant neoplasm of lower lobe, right bronchus or lung; C34.91 Malignant neoplasm of unspecified part of right bronchus or lung; D64.81 Anemia due to antineoplastic chemotherapy; J44.1 Chronic obstructive pulmonary disease with (acute) exacerbation; I10 Essential (primary) hypertension; I48.0 Paroxysmal atrial fibrillation; H54.42 Blindness, left eye, normal vision right eye; T45.1X5A Adverse effect of antineoplastic and immunosuppressive drugs, initial encounter; F17.200 Nicotine dependence, unspecified, uncomplicated; Z85.41 Personal history of malignant neoplasm of cervix uteri; Z86.73 Personal history of transient ischemic attack (TIA), and cerebral infarction without residual deficits; Z87.01 Personal history of pneumonia (recurrent)
CPT/HCPCS: 36600; 71010; 71275; 77014; 77336; 77386; 77427; 80048; 80202; 81001; 82550; 82552; 82805; 83605; 83735; 83880; 84443; 84484; 85025; 85027; 85610; 85730; 87040; 87804; 90732; 93005; 93306; 94002; 94150; 94620; 94640; 94664; 96365; 96375; J0456; J0692; J1650; J1956; J2405; J2543; J2550; J2930; J3370; J7050; J7613; Q9967

== ENCOUNTER 2017-01-25 20:43 | Inpatient (IN) | payer MEDICAID ==
[~2017-01-25] VITALS: Ht 165.1 cm; Wt 62.2 kg
[2017-01-25] VITALS (10 sets, daily range): BP systolic 82–103; BP diastolic 51–62; PULSE 86–112; RESP 16–38; TEMP 98–99.8; O2SAT 95–100
[~2017-01-25 20:43] MED LIST changes: +COUM2.5T PO; +METO25TA3 PO; +ONDA1TAB17 PO; +PRED10PA2 PO; -PRED5TAB PO; +TEMA7.5C9 PO; -ZOFR4TAB3 SL
[2017-01-25] MEDS ORDERED: ONDANSETRON HCL 4 MG/2 ML VIAL ONE (20:57)
[2017-01-25] MEDS ORDERED: SODIUM CHLORIDE 0.9% FLUSH 10 ML FLUSH IV FLUSH PRN ×2 (21:15→23:45)
[2017-01-25] MEDS ORDERED: SODIUM CHLOR 0.9% 250 ML INJ 250 ML IV ONE ×2 (21:15→21:30)
[2017-01-25] MEDS ORDERED: METOCLOPRAMIDE HCL 10 MG/2 ML VIAL IV PUSH ONE (21:15)
[2017-01-25] MEDS ORDERED: GELATIN 12 MM/7 MM FOAM TOPICAL ONE (21:15)
--- NOTE | 2017-01-25 21:44 | RADRPT ---
EXAM DATE/TIME: 01/25/2017 21:32 [facility] COMPARISON: CT BRAIN W/O CONTRAST, May 27, 2014, 7:29. INDICATIONS : Trauma; fall and hit head. RADIATION DOSE: 37.13 CTDIvol (mGy) MEDICAL HISTORY : Non-responsive. SURGICAL HISTORY : Non-responsive. ENCOUNTER: Initial ACUITY: 1 day PAIN SCALE: Non-responsive LOCATION: cranial TECHNIQUE: Multiple contiguous axial images were obtained of the head. Using automated exposure control and adj ustment of the mA and/or kV according to patient size, radiation dose was kept as low as reasonably a chievable to obtain optimal diagnostic quality images. FINDINGS: CEREBRUM: The ventricles are normal for age. No evidence of midline shift, mass lesion, hemorrhage or acute in farction. No extra-axial fluid collections are seen. Minimal periventricular white matter small vess el ischemic changes are noted bilaterally. POSTERIOR FOSSA: The cerebellum and brainstem are intact. The 4th ventricle is midline. The cerebellopontine angle i s unremarkable. EXTRACRANIAL: There is a chronically calcified and irregularly-shaped left globe which is stable. SKULL: The calvaria is intact. No evidence of skull fracture. CONCLUSION: No acute infarct, acute hemorrhage, mass effect or extra-axial fluid collections. Min imal periventricular white matter small vessel ischemic changes bilaterally. Irregularly-shaped chron ically calcified left globe which is stable. Nakul Munoz MD on January 25, 2017 at 21:39 Board Certified Radiologist. This report was verified electronically.
[2017-01-25 21:48] LABS: AUTOMATED NEUTROPHIL # 19.1 TH/MM3 (1.8-7.7); BASOPHIL # 0.2 TH/MM3 (0-0.2); BASOPHIL % 0.7 % (0.0-2.0); EOSINOPHIL # 0.2 TH/MM3 (0-0.4); EOSINOPHIL % 0.7 % (0.0-4.0); HEMATOCRIT 22.9 % (35.0-46.0); LYMPH % 7.2 % (9.0-44.0); LYMPHOCYTE # 1.7 TH/MM3 (1.0-4.8); MEAN CELL VOLUME 92.9 FL (80.0-100.0); MEAN CORPUSCULAR HEMOGLOBIN 30.2 PG (27.0-34.0); MEAN CORPUSCULAR HGB CONC 32.5 % (32.0-36.0); MONO % 8.6 % (0.0-8.0); NEUT % 82.8 % (16.0-70.0); PLATELET COUNT 338 TH/MM3 (150-450); RED BLOOD COUNT 2.46 MIL/MM3 (4.00-5.30); RED CELL DISTRIBUTION WIDTH 18.4 % (11.6-17.2)
[2017-01-25 21:58] LABS: BICARBONATE 25.3 MEQ/L (21.0-32.0); POTASSIUM 3.1 MEQ/L (3.5-5.1); TOTAL BILIRUBIN ADULT 0.2 MG/DL (0.2-1.0)
[2017-01-25 21:59] LABS: APTT (PATIENT) 57.3 SEC (24.3-30.1); INTERNATIONAL NORMALIZED RATIO 5.6 RATIO; PROTHROMBIN TIME - PATIENT 66.3 SEC (9.8-11.6)
[2017-01-25] MEDS ORDERED: ONDANSETRON HCL 4 MG/2 ML VIAL IV PUSH ONE (22:00)
[2017-01-25] MEDS ORDERED: SODIUM CHLOR 0.9% 1000 ML INJ 1,000 ML IV ONE (22:00)
[2017-01-25 22:07] LABS: CALCIUM-PROTEIN CORRECTED 7.4 MG/DL (8.5-10.1)
--- NOTE | 2017-01-25 22:08 | RADRPT ---
EXAM DATE/TIME: 01/25/2017 21:49 [facility] COMPARISON: CHEST SINGLE AP, November 29, 2016, 9:58. INDICATIONS : Evaluate lung status. Patient fell tonight. MEDICAL HISTORY : Lung cancer. Cardiovascular disease. Hypertension. Hepatitis C. Cervical cancer. SURGICAL HISTORY : None. ENCOUNTER: Initial ACUITY: 1 day PAIN SCORE: 3/10 LOCATION: Bilateral chest FINDINGS: Right basilar consolidation is again noted. Right subclavian [id number] has its tip in the superi or vena cava. No pneumothorax is noted. The left lung is clear. The heart is stable. CONCLUSION: 1. Right basilar consolidation is again noted and stable. Nakul Munoz MD on January 25, 2017 at 22:04 Board Certified Radiologist. This report was verified electronically.
[2017-01-25 22:09] LABS: HEMO FLAGS AUTO DIFF
[2017-01-25 22:30] LABS: BANDS 12 % (0-6); EOSINOPHILS 1 % (0-4); NEUTROPHIL # MANUAL DIFF 19.3 TH/MM3 (1.8-7.7); POLYS (SEG NEUTROPHILS) 72 % (16-70); WBC DIFF SAMPLE 100
[2017-01-25 22:31] LABS: PLATELET ESTIMATE SMEAR NORMAL (NORMAL); PLATELET MORPHOLOGY NORMAL (NORMAL); SCAN/DIFF FINAL DIFF MANUAL
[2017-01-25] MEDS ORDERED: COUM5TAB PO (22:32)
[2017-01-25] MEDS ORDERED: METH10CO4 PO (22:33)
[2017-01-25] MEDS ORDERED: ACETAMINOPHEN 325 MG TAB PO ONE (22:45)
[2017-01-25] MEDS ORDERED: SODIUM CHLOR 0.9% 1000 ML INJ 1,000 ML IV SCH (23:37)
[2017-01-25] MEDS ORDERED: PHYTONADIONE 5 MG TAB PO ONE (23:45)
[2017-01-25] MEDS ORDERED: PILL SPLITTER OTHER PRN (23:45)
[2017-01-25] MEDS ORDERED: ALBUTEROL SULFATE 90 MCG/ACT HFA 18 GM INHALER INH PRN (23:45)
[2017-01-25] MEDS ORDERED: NALOXONE HCL 0.4 MG/ML AMP IV PRN (23:45)
[2017-01-26] VITALS (12 sets, daily range): BP systolic 82–139; BP diastolic 53–84; PULSE 65–84; RESP 18–22; TEMP 96.3–98.7; O2SAT 92–97
[2017-01-26] MEDS ORDERED: CALCIUM GLUCONATE INJ 2 GM in DEXTROSE 5% IN WATER 100ML INJ 100 ML IV ONE ×2 (01:15)
--- NOTE | 2017-01-26 01:17 | HHI.HP ---
[facility] Primary Care Physician No Primary Care Physician Admission Diagnosis Blood loss anemia, elevated INR, head injury Diagnoses: Chief Complaint: head pain due to fall Travel History International Travel<30 Days: No Contact w/Intl Traveler <30 Da: No Traveled to Known Affected Are: No History of Present Illness 61 y/o female with a history of COPD, Lung Cancer, HTN, Hep C, Retinal detachment and Cervical cancer was brought in by EMS after suffering a fall. Patient states she was walking and fell over parking curb. She was able to get up and drive home. She called EMS because she was bleeding profusely from the back of her head. She states she did have some nausea and vomiting earlier, but it has since resolved. She complains of a throbbing headache posteriorly. She denies any chest pain, sob, dizziness, fever or chills. Patient states she takes Coumadin for an episode of Afib, but is not monitored by a Dr. Patient does not have a PCP Dr. Braxton is patients oncologist. Review of Systems Constitutional: DENIES: Fever, Chills, Dizziness Ears, nose, mouth, throat: DENIES: Throat pain Respiratory: DENIES: Cough, Sputum production, Shortness of breath Cardiovascular: DENIES: Syncope, Lower Extremity Edema Gastrointestinal: COMPLAINS OF: Nausea, Vomiting, DENIES: Constipation, Diarrhea Musculoskeletal: DENIES: Back pain, Neck pain Integumentary: DENIES: Rash Hematologic/lymphatic: DENIES: Lymphadenopathy Immunologic/allergic: DENIES: Urticaria Neurologic: COMPLAINS OF: Headache, Localized weakness Past Family Social History Past Medical History COPD Lung Cancer HTN Hep C Retinal detachment Cervical cancer Afib Left detached retina, blindness Past Surgical History Current Medications Medications (Trade) Dose Ordered Sig/Félix Route Start Time Stop Time Status Last Admin Sodium Chloride 250 ml @ 15 mls/hr ONCE ONCE IV 01/25/17 21:15 01/26/17 13:54 01/25/17 22:34 Sodium Chloride 250 ml @ 15 mls/hr ONCE ONCE IV 01/25/17 21:30 01/26/17 14:09 01/25/17 22:35 (NS 1000 ml Inj) 1,000 ml @ 100 mls/hr Q10H IV 01/25/17 23:37 (NS Flush) 2 ml UNSCH PRN IV FLUSH 01/25/17 23:45 (NS Flush) 2 ml BID IV FLUSH 01/26/17 09:00 (Narcan Inj) 0.4 mg UNSCH PRN IV 01/25/17 23:45 (Ventolin Hfa Inh) 1 puff Q4H PRN INH 01/25/17 23:45 (Symbicort 160-4.5 Inh) 2 puff Q12HR INH 01/26/17 09:00 (Lopressor) 25 mg Q12HR PO 01/26/17 09:00 (Zofran Odt) 8 mg TID PO 01/26/17 09:00 Miscellaneous 1 ea 1 ea UNSCH PRN OTHER 01/25/17 23:45 (Calcium Gluconate Inj/D5W 100 ml Inj) 120 ml @ 120 mls/hr ONCE ONCE IV 01/26/17 01:15 01/26/17 02:14 (Lasix Inj) 20 mg ONCE ONCE IV PUSH 01/26/17 01:30 01/26/17 01:31 UNV Reported Medications Reported Meds & Active Scripts Active Metoprolol Tartrate 25 Mg Tab 25 Mg PO Q12HR Symbicort Inh (Budesonide/Formoterol Fumarate) 160-4.5 Mcg/Act Aero 2 Puff INH Q12HR Norvasc (Amlodipine Besylate) 5 Mg Tab 2.5 Mg PO DAILY Ventolin Hfa 18 GM Inh (Albuterol Sulfate) 90 Mcg/Act Aer 1 Puff INH Q4H PRN Restoril (Temazepam) 7.5 Mg Cap 7.5 Mg PO HS PRN Oxygen tank (Oxygen) 1 Ea Tank 2 Liter DIANE.CANULA CONTINUOUS PRN Oxygen Concentrator Portable Gaseous 2 L/min via Nasal Cannula Continuous For 99 months Reported Methadose Liq (Methadone HCl) 10 Mg/Ml Conc 160 Mg PO DAILY Coumadin (Warfarin) 5 Mg Tab 5 Mg PO DAILY@1600 Ondansetron (Ondansetron HCl) 8 Mg Tab 8 Mg PO TID Allergies: Coded Allergies: Sulfa (Verified Allergy, Severe, HIVES, 12/15/16) Toradol (Verified Allergy, Mild, HIVES, 12/15/16) Active Ordered Medications Current Medications Medications (Trade) Dose Ordered Sig/Félix Route Start Time Stop Time Status Last Admin Sodium Chloride 250 ml @ 15 mls/hr ONCE ONCE IV 01/25/17 21:15 01/26/17 13:54 01/25/17 22:34 Sodium Chloride 250 ml @ 15 mls/hr ONCE ONCE IV 01/25/17 21:30 01/26/17 14:09 01/25/17 22:35 (NS 1000 ml Inj) 1,000 ml @ 100 mls/hr Q10H IV 01/25/17 23:37 (NS Flush) 2 ml UNSCH PRN IV FLUSH 01/25/17 23:45 (NS Flush) 2 ml BID IV FLUSH 01/26/17 09:00 (Narcan Inj) 0.4 mg UNSCH PRN IV 01/25/17 23:45 (Ventolin Hfa Inh) 1 puff Q4H PRN INH 01/25/17 23:45 (Symbicort 160-4.5 Inh) 2 puff Q12HR INH 01/26/17 09:00 (Lopressor) 25 mg Q12HR PO 01/26/17 09:00 (Zofran Odt) 8 mg TID PO 01/26/17 09:00 Miscellaneous 1 ea 1 ea UNSCH PRN OTHER 01/25/17 23:45 (Calcium Gluconate Inj/D5W 100 ml Inj) 120 ml @ 120 mls/hr ONCE ONCE IV 01/26/17 01:15 01/26/17 02:14 (Lasix Inj) 20 mg ONCE ONCE IV PUSH 01/26/17 01:30 01/26/17 01:31 UNV Family History Parents - heart disease Brother - lung cancer Social History Tobacco use: Smoked for 30 years 1 PPD. Quit in [place] Alcohol use: Denies Illicit drug use: History of drug use, on methadone Physical Exam Vital Signs Vital Signs Date Time Temp Pulse Resp B/P Pulse Ox O2 Delivery O2 Flow Rate FiO2 01/25/17 23:47 98.0 86 20 91/55 97 Nasal Cannula 2 01/25/17 23:31 98.2 97 22 93/59 97 Nasal Cannula 2 01/25/17 22:28 90 16 98/58 98 Nasal Cannula 2 01/25/17 22:06 99.8 94 19 91/57 100 Nasal Cannula 2 01/25/17 22:02 99.8 99 38 91/57 100 Nasal Cannula 2 01/25/17 21:43 103 24 86/62 100 Nasal Cannula 2 01/25/17 21:26 100 27 103/54 100 Nasal Cannula 2 01/25/17 21:24 101 26 88/56 97 2 01/25/17 21:17 28 93 Nasal Cannula 2 01/25/17 21:15 112 28 82/51 95 Nasal Cannula 2 Physical Exam GENERAL: This is a well-nourished, well-developed patient, with pain to her head. SKIN: Occipital laceration with sutures in place HEAD: Atraumatic. Normocephalic. EYES: Pupils equal round and reactive. Extraocular motions intact. No scleral icterus. No injection or drainage. ENT: Nose without bleeding, purulent drainage or septal hematoma. Throat without erythema, tonsillar hypertrophy or exudate. Uvula midline. Airway patent. NECK: Trachea midline. No JVD or lymphadenopathy. Supple, nontender, no meningeal signs. CARDIOVASCULAR: Regular rate and rhythm without murmurs, gallops, or rubs. RESPIRATORY: Clear to auscultation. Breath sounds equal bilaterally. No wheezes , rales, or rhonchi. GASTROINTESTINAL: Abdomen soft, non-tender, nondistended. No hepato-splenomegaly , or palpable masses. No guarding. MUSCULOSKELETAL: Extremities without clubbing, cyanosis, or edema. No joint tenderness, effusion, or edema noted. No calf tenderness. Negative Homans sign bilaterally. NEUROLOGICAL: Awake and alert. Motor and sensory grossly within normal limits. Five out of 5 muscle strength in all muscle groups. Normal speech. Laboratory Laboratory Tests Test 01/25/17 01/25/17 01/25/17 21:20 22:05 22:08 White Blood Count 23.0 Red Blood Count 2.46 Hemoglobin 7.4 Hematocrit 22.9 Mean Corpuscular Volume 92.9 Mean Corpuscular Hemoglobin 30.2 Mean Corpuscular Hemoglobin 32.5 Concent Red Cell Distribution Width 18.4 Platelet Count 338 Mean Platelet Volume 7.4 Neutrophils (%) (Auto) 82.8 Lymphocytes (%) (Auto) 7.2 Monocytes (%) (Auto) 8.6 Eosinophils (%) (Auto) 0.7 Basophils (%) (Auto) 0.7 Neutrophils # (Auto) 19.1 Lymphocytes # (Auto) 1.7 Monocytes # (Auto) 2.0 Eosinophils # (Auto) 0.2 Basophils # (Auto) 0.2 CBC Comment AUTO DIFF Differential Total Cells 100 Counted Neutrophils % (Manual) 72 Band Neutrophils % 12 Lymphocytes % 8 Monocytes % 7 Eosinophils % 1 Neutrophils # (Manual) 19.3 Differential Comment FINAL DIFF MANUAL Platelet Estimate NORMAL Platelet Morphology Comment NORMAL Red Cell Morphology Comment NORMAL Prothrombin Time 66.3 Prothromb Time International 5.6 Ratio Activated Partial 57.3 Thromboplast Time Sodium Level 143 Potassium Level 3.1 Chloride Level 108 Carbon Dioxide Level 25.3 Anion Gap 10 Blood Urea Nitrogen 3 Creatinine 0.61 Estimat Glomerular Filtration 99 Rate Random Glucose 184 Calcium Level 5.9 Protein Corrected Calcium 7.4 Total Bilirubin 0.2 Aspartate Amino Transf 14 (AST/SGOT) Alanine Aminotransferase 8 (ALT/SGPT) Alkaline Phosphatase 33 Total Protein 3.9 Albumin 1.3 Lipase 41 Blood Bank Comment Blood Type O POSITIVE Antibody Screen NEGATIVE Crossmatch Leukocyte-Reduced Red Blood Cells Result Diagram: 01/25/17211901/25/172119 Imaging Last Impressions Chest X-Ray 01/25/172111 Signed Impressions: Service Date/Time: Wednesday, January 25, 2017 21:49 - CONCLUSION: 1. Right basilar consolidation is again noted and stable. Nakul Munoz MD Head CT 01/25/17 0000 Signed Impressions: Service Date/Time: Wednesday, January 25, 2017 21:32 - CONCLUSION: No acute infarct, acute hemorrhage, mass effect or extra-axial fluid collections. Minimal periventricular white matter small vessel ischemic changes bilaterally. Irregularly-shaped chronically calcified left globe which is stable. Nakul Munoz MD Assessment and Plan Problem List: (1) Subtherapeutic international normalized ratio (INR) ICD Code: R79.1 Status: Acute (2) Fall ICD Code: W19.XXXA Status: Acute (3) Leukocytosis ICD Code: D72.829 Status: Acute (4) Anemia ICD Code: D64.9 Status: Acute (5) Lung cancer ICD Code: C34.90 Status: Chronic (6) Hypokalemia ICD Code: E87.6 Status: Acute (7) Hypocalcemia ICD Code: E83.51 Status: Acute Assessment and Plan 61 y/o female with a history of COPD, Lung Cancer, HTN, Hep C, Retinal detachment and Cervical cancer was brought in by EMS after suffering a fall. //history of afib. no history of stroke per pt //Supratherapeutic INR Labs: INR 5.6 -Vit K Po, and 4 units of FFP ordered in ED -INR in AM -Hold coumadin Anemia from blood loss Labs: Hgb 7.4 -1 unit of PRBCs -CBC in AM Fall Images: Head CT unremarkable -PT eval -Keep head wound clean and dry, bacitracin apply BID Hypocalcemia/ Hypokalemia Labs: ca 5.6, protein corrected 7.4, Potassium 3.1 -1 gm calcium given -40meq given -BMP and Mag in AM -Monitor Tele Leukocytosis Labs: wbc 18.6, neutrophils 86% -Trend CBC -UA pending Lung cancer, chronic, last chemo 2 weeks ago -Consult oncology, patient is known to DR. braxton DVT prophylaxis: SCDs Written by ELEN Delgado acting as scribe for Dr. Wang 01/26/17 at 0115 All or portions of this note were transcribed by scribe [ELEN Delgado]. I , Dr. Conrado Wang personally performed the history, physical exam, and medical decision making; and confirmed the accuracy of the information in the transcribed note. Authenticated by Dr. Conrado Wang on 01/26/17 at 05:41. Discussed Condition With Patient and RN Physician Certification 2 Midnight Certification Type: Admission for Inpatient Services Order for Inpatient Services The services are ordered in accordance with Medicare regulations or non- Medicare payer requirements, as applicable. In the case of services not specified as inpatient-only, they are appropriately provided as inpatient services in accordance with the 2-midnight benchmark. Estimated LOS (days): 2 days is the estimated time the patient will need to remain in the hospital, assuming treatment plan goals are met and no additional complications. Post-Hospital Plan: Home Problem Qualifiers (1) Fall: Qualified Code: W19.XXXA - Fall, initial encounter (2) Anemia: Qualified Code: D62 - Acute posthemorrhagic anemia Rafaela Jerez Jan 26, 2017 01:17 Conrado Wang MD Jan 26, 2017 05:41
[2017-01-26] MEDS ORDERED: FUROSEMIDE 20 MG/2 ML VIAL IV PUSH ONE (01:30)
--- NOTE | 2017-01-26 02:01 | PD ---
HPI Chief Complaint: Bleeding Time Seen by Provider: 21:15 Travel History International Travel<30 days: No Contact w/Intl Traveler<30days: No Traveled to known affect area: No History of Present Illness HPI Patient is a 61-year-old female with history of A. fib and lung cancer who comes in after she fell and hit her head. She apparently tripped in the parking lot and hit her head and started bleeding. She is on Coumadin. She says her INR was 7.5 this morning when she had it checked at her doctor's office. She was told to hold the Coumadin tonight. She denies any loss of consciousness. He event happened about 2 hours prior to arrival. She drove herself home and then someone called 911. She is complaining of some nausea. She denies any chest pain or shortness of breath. She was feeling in her normal state of health prior to the event. PFSH Past Medical History Autoimmune Disease: No Cancer: Yes (CERVICAL) Cardiovascular Problems: Yes (htn) Chemotherapy: Yes COPD: Yes Cerebrovascular Accident: Yes (seizures) Coronary Artery Disease: No Diabetes: No Diminished Hearing: No Gastrointestinal Disorders: Yes (voMiting x 1 week) Genitourinary: No Hypertension: Yes Immune Disorder: No Musculoskeletal: No Neurologic: No Psychiatric: No Respiratory: Yes Immunizations Current: Yes Seizures: Yes (in past drug related) PNEUMOCCOCAL Vaccine (Year): 2 ?: Not Menopausal: Yes : 3 Para: 2 Miscarriage: 1 Dilation and Curettage (D&C): Yes Past Surgical History Eye Surgery: Yes (CATARAC AND RETINAL SURGERY IN THE LEFT EYE) Gynecologic Surgery: Yes (CERVICAL CONE SURGERY FOR CANCER) Other Surgery: Yes Social History Alcohol Use: No Tobacco Use: Yes (11/03) Substance Use: No Allergies-Medications (Allergen,Severity, Reaction): Coded Allergies: Sulfa (Verified Allergy, Severe, HIVES, 12/15/16) Toradol (Verified Allergy, Mild, HIVES, 12/15/16) Reported Meds & Prescriptions Reported Meds & Active Scripts Active Metoprolol Tartrate 25 Mg Tab 25 Mg PO Q12HR Symbicort Inh (Budesonide/Formoterol Fumarate) 160-4.5 Mcg/Act Aero 2 Puff INH Q12HR Norvasc (Amlodipine Besylate) 5 Mg Tab 2.5 Mg PO DAILY Ventolin Hfa 18 GM Inh (Albuterol Sulfate) 90 Mcg/Act Aer 1 Puff INH Q4H PRN Restoril (Temazepam) 7.5 Mg Cap 7.5 Mg PO HS PRN Oxygen tank (Oxygen) 1 Ea Tank 2 Liter DIANE.CANULA CONTINUOUS PRN Oxygen Concentrator Portable Gaseous 2 L/min via Nasal Cannula Continuous For 99 months Reported Methadose Liq (Methadone HCl) 10 Mg/Ml Conc 160 Mg PO DAILY Coumadin (Warfarin) 5 Mg Tab 5 Mg PO DAILY@1600 Ondansetron (Ondansetron HCl) 8 Mg Tab 8 Mg PO TID Review of Systems Except as stated in HPI: all other systems reviewed are Neg General / Constitutional: No: Fever, Chills Eyes: No: Blurred Vision HENT: Positive: Headaches Cardiovascular: No: Chest Pain or Discomfort Respiratory: No: Shortness of Breath Gastrointestinal: Positive: Nausea, No: Abdominal Pain Musculoskeletal: No: Myalgias Skin: Positive Other (laceration) Neurologic: No: Weakness, Dizziness Physical Exam Narrative GENERAL: Awake and alert, actively bleeding. SKIN: Active bleeding from the scalp. Bleeding is brisk. HEAD: hematoma to the right occiput. EYES: Pupils equal and round. No scleral icterus. EOMI ENT: Mucous membranes pink and moist. NECK: Trachea midline. No JVD. CARDIOVASCULAR: Regular rate and rhythm. No murmur appreciated. RESPIRATORY: No accessory muscle use. Clear to auscultation. Breath sounds equal bilaterally. GASTROINTESTINAL: Abdomen soft, non-tender, nondistended. MUSCULOSKELETAL: No obvious deformities. No clubbing. No cyanosis. No edema. NEUROLOGICAL: Awake and alert. No obvious cranial nerve deficits. Motor grossly within normal limits. Normal speech. PSYCHIATRIC: Appropriate mood and affect; insight and judgment normal. Data Data Last Documented VS Vital Signs Date Time Temp Pulse Resp B/P Pulse Ox O2 Delivery O2 Flow Rate FiO2 01/25/17 23:47 98.0 86 20 91/55 97 Nasal Cannula 2 Orders Ondansetron Inj (Zofran Inj) (01/25/17 20:57) Gelatin 12 Mm/7 Mm Top (Gelfoam 12 Mm/7 (01/25/17 21:15) Metoclopramide Inj (Reglan Inj) (01/25/17 21:15) Complete Blood Count With Diff (01/25/17 21:09) Comprehensive Metabolic Panel (01/25/17 21:09) Lipase (01/25/17 21:09) Prothrombin Time / Inr (Pt) (01/25/17 21:09) Act Partial Throm Time (Ptt) (01/25/17 21:09) Urinalysis - C+S If Indicated (01/25/17 21:09) Iv Access Insert/Monitor (01/25/17 21:09) Ecg Monitoring (01/25/17 21:09) Oximetry (01/25/17 21:09) Sodium Chloride 0.9% Flush (Ns Flush) (01/25/17 21:15) Type And Screen (01/25/17 21:09) Blood Product Administration .UPON TRANSFUSION (01/25/17 21:09) Sodium Chlor 0.9% 250 Ml Inj (Ns 250 Ml (01/25/17 21:15) Ct Brain W/O Iv Contrast(Rout) (01/25/17 ) Red Blood Cells (Rbc) (01/25/17 21:18) Blood Product Administration .UPON TRANSFUSION (01/25/17 21:18) Sodium Chlor 0.9% 250 Ml Inj (Ns 250 Ml (01/25/17 21:30) Sodium Chlor 0.9% 1000 Ml Inj (Ns 1000 M (01/25/17 22:00) Ondansetron Inj (Zofran Inj) (01/25/17 22:00) Chest, Single Ap (01/25/17 21:12) Fresh Frozen Plasma (Ffp) (01/25/17 22:05) Acetaminophen (Tylenol) (01/25/17 22:45) Admit To Inpatient (01/25/17 ) Vital Signs (Adult) Q4H (01/25/17 23:37) Activity Oob With Assistance (01/25/17 23:37) Bedside Glucose MARBELLA.AC&HS (01/25/17 23:37) Intake + Output MARBELLA.QSHIFT (01/25/17 23:37) Diet Regular Basic (01/26/17 Breakfast) Sodium Chlor 0.9% 1000 Ml Inj (Ns 1000 M (01/25/17 23:37) Sodium Chloride 0.9% Flush (Ns Flush) (01/25/17 23:45) Sodium Chloride 0.9% Flush (Ns Flush) (01/26/17 09:00) Case Management Consult (01/25/17 23:37) Scd Bilateral/Knee High MARBELLA.BID (01/25/17 23:37) Naloxone Inj (Narcan Inj) (01/25/17 23:45) Inpatient Certification (01/25/17 ) ^ Neuro Checks (Ped) RT.Q2H (01/25/17 23:41) Phytonadione (Mephyton) (01/25/17 23:45) Amlodipine (Norvasc) (01/26/17 09:00) Budeson-Formot 160-4.5 Mg Inh (Symbicort (01/26/17 09:00) Metoprolol Tartrate (Lopressor) (01/26/17 09:00) Ondansetron Odt (Zofran Odt) (01/26/17 09:00) Admit Order (Ed Use Only) (01/25/17 ) Albuterol Hfa Inh (Ventolin Hfa Inh) (01/25/17 23:45) Labs Laboratory Tests Test 01/25/17 01/25/17 01/25/17 21:20 22:05 22:08 White Blood Count 23.0 TH/MM3 Red Blood Count 2.46 MIL/MM3 Hemoglobin 7.4 GM/DL Hematocrit 22.9 % Mean Corpuscular Volume 92.9 FL Mean Corpuscular Hemoglobin 30.2 PG Mean Corpuscular Hemoglobin 32.5 % Concent Red Cell Distribution Width 18.4 % Platelet Count 338 TH/MM3 Mean Platelet Volume 7.4 FL Neutrophils (%) (Auto) 82.8 % Lymphocytes (%) (Auto) 7.2 % Monocytes (%) (Auto) 8.6 % Eosinophils (%) (Auto) 0.7 % Basophils (%) (Auto) 0.7 % Neutrophils # (Auto) 19.1 TH/MM3 Lymphocytes # (Auto) 1.7 TH/MM3 Monocytes # (Auto) 2.0 TH/MM3 Eosinophils # (Auto) 0.2 TH/MM3 Basophils # (Auto) 0.2 TH/MM3 CBC Comment AUTO DIFF Differential Total Cells 100 Counted Neutrophils % (Manual) 72 % Band Neutrophils % 12 % Lymphocytes % 8 % Monocytes % 7 % Eosinophils % 1 % Neutrophils # (Manual) 19.3 TH/MM3 Differential Comment FINAL DIFF MANUAL Platelet Estimate NORMAL Platelet Morphology Comment NORMAL Red Cell Morphology Comment NORMAL Prothrombin Time 66.3 SEC Prothromb Time International 5.6 RATIO Ratio Activated Partial 57.3 SEC Thromboplast Time Sodium Level 143 MEQ/L Potassium Level 3.1 MEQ/L Chloride Level 108 MEQ/L Carbon Dioxide Level 25.3 MEQ/L Anion Gap 10 MEQ/L Blood Urea Nitrogen 3 MG/DL Creatinine 0.61 MG/DL Estimat Glomerular Filtration 99 ML/MIN Rate Random Glucose 184 MG/DL Calcium Level 5.9 MG/DL Protein Corrected Calcium 7.4 MG/DL Total Bilirubin 0.2 MG/DL Aspartate Amino Transf 14 U/L (AST/SGOT) Alanine Aminotransferase 8 U/L (ALT/SGPT) Alkaline Phosphatase 33 U/L Total Protein 3.9 GM/DL Albumin 1.3 GM/DL Lipase 41 U/L Blood Bank Comment Blood Type O POSITIVE Antibody Screen NEGATIVE Crossmatch Leukocyte-Reduced Red Blood Cells MDM Medical Decision Making Medical Screen Exam Complete: Yes Emergency Medical Condition: Yes Medical Record Reviewed: Yes Differential Diagnosis coagulopathy vs ICH vs blood loss anemia vs laceration Narrative Course Patient is a 61 year old female who comes in actively bleeding from her head after a fall. She is covered in blood from her head down her torso. There is a laceration and hematoma to the right occiput. IV established by EMS. Patient given IVF and Zofran. Wound sutured. Quick clot applied as well as lidocaine with epi in attempts to control bleeding. Pressure dressing placed. CT head shows no ICH. Labs show an INR of 5.6. Hgb is 7.4. Patient had a drop in her BP to the 80s. Given 1 unit of emergency release blood. Given 4 units of FFP. Patient admitted for further management. Critical Care Narrative Aggregate critical care time was 45 minutes. Time to perform other separately billable procedures was not included in the critical care time. My time did not include minutes spent treating any other patients simultaneously or on activities that did not directly contribute to the patient's treatment. The services I provided to this patient were to treat and/or prevent clinically significant deterioration that could result in: Serious illness or I provided critical care services requiring my management, as noted below: Chart data review, documentation time, medication orders and management, vital sign assessments/reviewing monitor data, ordering and reviewing lab tests, ordering and interpreting/reviewing x-rays and diagnostic studies, care of the patient and discussion of the patient with the admitting physicians. Procedures Procedure Narrative LACERATION LOCATION: Right occiput LENGTH: 2 cm NUMBER OF STITCHES/CRISTIAN: 3 REPAIR: The area of the laceration was prepped with sterile water. The laceration was infiltrated with Lidocaine with epi. The wound was copiously irrigated and explored without evidence of foreign body, tendon injury or neurovascular injury. The wound was closed using 4-0 nonabsorbable sutures. This was a single layer repair. A sterile dressing was applied. Patient tolerated the procedure well. Diagnosis Primary Impression: Head injury Qualified Code: S09.90XA - Head injury, initial encounter Additional Impressions: Coagulopathy Anemia Qualified Code: D62 - Acute posthemorrhagic anemia Bleeding Admitting Information Admitting Physician Requests: Valeria Rodriguez MD Jan 26, 2017 02:01
[2017-01-26] MEDS ORDERED: TEMAZEPAM 15 MG CAP PO ONE (03:00)
[2017-01-26] MEDS ORDERED: POTASSIUM CHLORIDE 10 MEQ CONTROLLED RELEASE TAB PO ONE (03:00)
[2017-01-26 03:30] LABS: BICARBONATE 23.4 MEQ/L (21.0-32.0); MAGNESIUM 1.3 MG/DL (1.5-2.5); POTASSIUM 3.2 MEQ/L (3.5-5.1)
[2017-01-26 03:43] LABS: CALCIUM-PROTEIN CORRECTED 7.5 MG/DL (8.5-10.1)
[2017-01-26] MEDS: MAGNESIUM SULFATE 1 GM PREMIX 100 ML IV SCH ×2 (06:45→07:48)
[2017-01-26] MEDS: METOPROLOL TARTRATE 25 MG TAB PO SCH (08:04)
[2017-01-26] MEDS: ONDANSETRON ODT 4 MG TAB PO SCH ×3 (08:04→17:51)
[2017-01-26] MEDS: BUDESONIDE-FORMOTEROL 160/4.5 MCG INHALER INH SCH (08:05)
[2017-01-26 08:35] LABS: BICARBONATE 35.5 MEQ/L (21.0-32.0); POTASSIUM 4.1 MEQ/L (3.5-5.1)
[2017-01-26 08:56] LABS: AUTOMATED NEUTROPHIL # 6.3 TH/MM3 (1.8-7.7); BASOPHIL # 0.1 TH/MM3 (0-0.2); BASOPHIL % 0.7 % (0.0-2.0); EOSINOPHIL # 0.1 TH/MM3 (0-0.4); EOSINOPHIL % 1.3 % (0.0-4.0); LYMPH % 9.4 % (9.0-44.0); LYMPHOCYTE # 0.8 TH/MM3 (1.0-4.8); MEAN CELL VOLUME 89.9 FL (80.0-100.0); MEAN CORPUSCULAR HEMOGLOBIN 31.1 PG (27.0-34.0); MEAN CORPUSCULAR HGB CONC 34.6 % (32.0-36.0); MONO % 13.1 % (0.0-8.0); NEUT % 75.5 % (16.0-70.0); PLATELET COUNT 226 TH/MM3 (150-450); RED BLOOD COUNT 2.19 MIL/MM3 (4.00-5.30); RED CELL DISTRIBUTION WIDTH 18.1 % (11.6-17.2); WHITE BLOOD COUNT 8.3 TH/MM3 (4.0-11.0)
[2017-01-26] MEDS ORDERED: BACITRACIN TOP OINT 15 GM TUBE TOPICAL SCH (09:00)
[2017-01-26] MEDS ORDERED: amLODIPine BESYLATE 5 MG TAB PO SCH (09:00)
[2017-01-26] MEDS: SODIUM CHLORIDE 0.9% FLUSH 10 ML FLUSH IV FLUSH SCH (09:00)
[2017-01-26 09:02] LABS: HEMATOCRIT 19.6 % (35.0-46.0); HEMO FLAGS AUTO DIFF
[2017-01-26 09:55] LABS: INTERNATIONAL NORMALIZED RATIO 1.4 RATIO
[2017-01-26 09:55] LABS: BANDS 4 % (0-6); BASOPHILS 1 % (0-2); EOSINOPHILS 1 % (0-4); METAMYELOCYTES 2 % (0-1); NEUTROPHIL # MANUAL DIFF 6.6 TH/MM3 (1.8-7.7); POLYS (SEG NEUTROPHILS) 73 % (16-70); WBC DIFF SAMPLE 100
[2017-01-26 09:57] LABS: PLATELET ESTIMATE SMEAR NORMAL (NORMAL); PLATELET MORPHOLOGY NORMAL (NORMAL); SCAN/DIFF FINAL DIFF MANUAL
[2017-01-26] MEDS ORDERED: SODIUM CHLOR 0.9% 1000 ML INJ 1,000 ML IV SCH (11:00)
[2017-01-26] MEDS ORDERED: SODIUM CHLOR 0.9% 1000 ML INJ 1,000 ML IV ONE (11:00)
--- NOTE | 2017-01-26 11:14 | HHI.PR ---
Subjective Remarks Follow up for fall, acute blood loss, Afib. Ms. Ford is doing well. Her BP is low (82/70). She is not symptomatic. However, she requests her usual dose of Methadone. I called [facility] treatment center and verified her daily dose of 160mg of Methadone. Patient denies any chest pain, shortness of breath, fever, chills. No abdominal pain. Objective Vitals Vital Signs Date Time Temp Pulse Resp B/P Pulse Ox O2 Delivery O2 Flow Rate FiO2 01/26/17 08:00 96.3 78 20 82/70 92 01/26/17 05:25 97.2 84 20 114/69 94 01/26/17 05:04 76 16 105/62 97 Nasal Cannula 2 01/26/17 02:18 98.4 77 19 97/55 97 Nasal Cannula 2 01/26/17 00:40 98.2 65 18 98/57 96 Room Air 2 01/25/17 23:47 98.0 86 20 91/55 97 Nasal Cannula 2 01/25/17 23:31 98.2 97 22 93/59 97 Nasal Cannula 2 01/25/17 22:28 90 16 98/58 98 Nasal Cannula 2 01/25/17 22:06 99.8 94 19 91/57 100 Nasal Cannula 2 01/25/17 22:02 99.8 99 38 91/57 100 Nasal Cannula 2 01/25/17 21:43 103 24 86/62 100 Nasal Cannula 2 01/25/17 21:26 100 27 103/54 100 Nasal Cannula 2 01/25/17 21:24 101 26 88/56 97 2 01/25/17 21:17 28 93 Nasal Cannula 2 01/25/17 21:15 112 28 82/51 95 Nasal Cannula 2 I/O 01/25/17 01/25/17 01/25/17 01/26/17 01/26/17 01/26/17 07:00 15:00 23:00 07:00 15:00 23:00 Intake Total 250 ml 1380 ml Balance 250 ml 1380 ml Intake Packed Cells 250 ml FFP 1380 ml Result Diagram: 01/26/17 0841 01/26/17 0754 Imaging Last Impressions Chest X-Ray 01/25/172111 Signed Impressions: Service Date/Time: Wednesday, January 25, 2017 21:49 - CONCLUSION: 1. Right basilar consolidation is again noted and stable. Nakul Munoz MD Head CT 01/25/17 0000 Signed Impressions: Service Date/Time: Wednesday, January 25, 2017 21:32 - CONCLUSION: No acute infarct, acute hemorrhage, mass effect or extra-axial fluid collections. Minimal periventricular white matter small vessel ischemic changes bilaterally. Irregularly-shaped chronically calcified left globe which is stable. Nakul Munoz MD Objective Remarks GENERAL: AOX3, NAD. SKIN: Warm and dry. HEAD: Normocephalic. EYES: No scleral icterus. No injection or drainage. NECK: Supple, trachea midline. No JVD or lymphadenopathy. CARDIOVASCULAR: Regular rate and rhythm without murmurs, gallops, or rubs. RESPIRATORY: Breath sounds equal bilaterally. No accessory muscle use. GASTROINTESTINAL: Abdomen soft, non-tender, nondistended. MUSCULOSKELETAL: No cyanosis, or edema. BACK: Nontender without obvious deformity. No CVA tenderness. Procedures None. A/P Problem List: (1) Subtherapeutic international normalized ratio (INR) ICD Code: R79.1 Status: Acute (2) Fall ICD Code: W19.XXXA Status: Acute (3) Leukocytosis ICD Code: D72.829 Status: Acute (4) Anemia ICD Code: D64.9 Status: Acute (5) Lung cancer ICD Code: C34.90 Status: Chronic (6) Hypokalemia ICD Code: E87.6 Status: Acute (7) Hypocalcemia ICD Code: E83.51 Status: Acute Assessment and Plan Ms. Ford is a 61 y/o female with a history of COPD, Lung Cancer, HTN, Hep C, Retinal detachment and Cervical cancer was brought in by EMS after suffering a fall. Her hemoglobin was 7.4 on admission. She apparently received 1 unit of PRBCs and 4 units of FFP as well as PO vitamin K. INR on admission was 5.6. CT head did not show any intracranial hemorrhage. However, patient had a lot of skull, superficial bleed. - Acute blood loss anemia - This AM, hemoglobin is 6.8. We will repeat H&H. Repeat Hgb was 6.3. We will transfuse 2 units of PRBCs. - Hypotension ( 82/70). - Patient denies any abdominal pain, Abdominal exam is also unremarkable. - We will give 1L bolus and infuse 2 more L of NS. 2 units of PRBCs will also increase volume. - Will closely monitor BP. If BP does not improve, we may have to give more fluid and/or transfer to ICU. - Chronic methadone use - Confirmed dosage of 160mg methadone daily. She goes to [facility] [place]. I discussed and confirmed the dosage with [facility] methadone clinic. - Reviewed uptodate articles on Methadone withdrawal. We will give patient 10 mg of IM methadone [id number]. - If blood pressure improves, we can continue methadone from tomorrow - perhaps smaller dose than what she takes at home. - COPD - Stage III lung cancer - Fall - Head CT unremarkable. - Patient follows up with Dr. Braxton. - Continue Albuterol inh, Symbicort. Full code. On warfarin - but reversed due to bleeding. INR today 1.4. Problem Qualifiers (1) Fall: Qualified Code: W19.XXXA - Fall, initial encounter (2) Anemia: Qualified Code: D62 - Acute posthemorrhagic anemia Karina Harris DO Jan 26, 2017 11:14 am
[2017-01-26 12:21] LABS: REVIEW FLAG FINAL
[2017-01-26 12:24] LABS: HEMATOCRIT 18.2 % (35.0-46.0)
[2017-01-26] MEDS ORDERED: diphenhydrAMINE HCL 25 MG CAP PO PRN (12:45)
[2017-01-26] MEDS ORDERED: ACETAMINOPHEN 325 MG TAB PO PRN (12:45)
[2017-01-26] MEDS ORDERED: SODIUM CHLOR 0.9% 250 ML INJ 250 ML IV ONE (12:45)
[2017-01-26] MEDS: METHADONE 10 MG/ML VIAL IM PRN ×2 (13:07→22:03)
--- NOTE | 2017-01-26 19:59 | MB ---
cc: KRYSTLE ALEXANDRE M.D. DATE OF CONSULTATION 01/26/[address] Harris REASON FOR CONSULTATION Oncology consulted to render opinion regarding patient with lung cancer on chemotherapy, presents to the hospital after head trauma. HISTORY OF PRESENT ILLNESS The patient is a 61-year-old male with history of [id number] lung carcinoma, stage III A, recently treated with chemotherapy and radiation. When I saw her in office yesterday she was doing very well. She had recovered well from the treatment side effect. She was supposed to start consolidation chemotherapy tomorrow. However, later that day [facility] [place] [facility] her , while in the parking lot she tripped and fell. She hit the back of her head. She denies any loss of consciousness. She thought it was just a bump on her head and she drove home. When she arrived home she found that she was covered in blood. She had a friend bring her back to the emergency room. She was found to have a big laceration and scalp CT did not show any intracranial bleed. She has been on Coumadin for atrial fibrillation. Her INR was supratherapeutic at 5.6. She was given 4 units of FFP in the emergency room. She also received 1 unit of packed blood cell in the emergency room. Her hemoglobin dropped from 11.6 to 7.4. This morning it dropped down to 6.8 and she is getting more transfusion. She stated she feel well. She has no fever or chills. Denies any headache. Denies any visual changes. She has chronic left eye blindness. She denies any chest pain, palpitation, any shortness of breath. She has chronic cough. Denies any focal numbness or weakness. PAST MEDICAL HISTORY 1. Eus-ptfnz-[id number] lung carcinoma stage III A. 2. Chronic obstructive pulmonary disease. 3. Hypertension. 4. Hepatitis C. 5. Retinal detachment. 6. Cervical precancerous lesion. 7. Paroxysmal atrial fibrillation. PAST SURGICAL HISTORY 1. Retinal surgery. 2. D&C. 3. Port placement. 4. Cataract surgery. 5. Cervical cone procedure. FAMILY HISTORY Brother of lung cancer. SOCIAL HISTORY Smoked a pack a day for 30 years, she has cut back. She has addiction to pain medication and is currently on methadone program. ALLERGIES SULFA AND TORADOL. CURRENT MEDICATIONS 1. Methadone. 2. Symbicort. 3. Lopressor. 4. Zofran. 5. Bacitracin. REVIEW OF SYSTEMS CONSTITUTIONAL: Negative. EYES: Chronic left eye blindness. EAR, NOSE, AND THROAT: No mouth sores or voice changes. CARDIOVASCULAR: No chest pressure, palpitations. RESPIRATORY: Shortness of breath. She has a chronic cough. Dyspnea on exertion. GASTROINTESTINAL: No nausea or vomiting, diarrhea or abdominal pain. GENITOURINARY: Denies any dysuria, hematuria. MUSCULOSKELETAL: Has chronic pain. HEMATOLOGIC: As above. ENDOCRINE: Negative. DERMATOLOGIC: As above. PSYCHIATRIC: Negative. NEUROLOGICAL: Negative. PHYSICAL EXAMINATION VITAL SIGNS: Temperature 97.3. Blood pressure 95/59. O2 saturation 96%. GENERAL: She is alert and oriented times three, in no acute distress. HEENT: Pressure dressings noted. Dressings are dry. Left eye cloudiness noted. NECK: No thyromegaly, no palpable mass. LYMPHATICS: No palpable cervical, supraclavicular, axillary or inguinal lymph nodes. CARDIOVASCULAR: Regular S1, S2. LUNGS: Diffuse wheezes. ABDOMEN: Soft, nontender. I could not palpate liver or spleen. EXTREMITIES: No cyanosis. No significant edema. BACK: No paravertebral tenderness. SKIN: No rash or petechiae. NEUROLOGIC: Nonfocal. LABORATORY DATA Reviewed. ASSESSMENT 1. Head trauma with scalp laceration. She had stitches placed in the ED. She has coagulopathy due to Coumadin. INR was 5.6 when she presented. Her hemoglobin dropped from 11.[address] head did not show intracerebral hemorrhage. She has received 4 units FFP and INR is reversed and down to 1.4. She has received a third unit of packed red blood cells. Continue to monitor CBC and keep hemoglobin above 8.0. 2. Non-small cell lung carcinoma stage III A. She had large right hilar mass extended to the infrahilar region causing collapse of right lower lobe measured 8.2 cm. There were also multiple hilar and mediastinal enlarged lymph nodes. She was treated with radiation along with concurrent carboplatin, Taxol which she just completed recently. She had good response to treatment. She has recovered well from the side effect. She was scheduled to start consolidation chemotherapy tomorrow but I am going to hold chemotherapy until her head wound is healed. No other oncologic intervention planned for this admission. 3. Chronic obstructive pulmonary disease, stable. 4. Paroxysmal atrial fibrillation. She was on Coumadin. Due to her scalp laceration and bleeding, Coumadin is now on hold. 5. History of drug abuse. She is on methadone. 6. Right kidney mass noted on last CT scan. This will need to be addressed once she completed her lung cancer treatment. PLAN 1. Monitor CBC and agree with transfusion to keep hemoglobin above 8.0. 2. Coumadin has been discontinued. 3. Follow up with the oncology clinic after discharge to resume chemotherapy. Thank you Dr. Harris for asking me to see this patient. MD PHILIP Montes De Oca/DARÍO /5:47 PM /7:35 PM ALBERTINA
[2017-01-26] MEDS ORDERED: SODIUM CHLOR 0.9% 1000 ML INJ 1,000 ML IV PRN (20:00)
[2017-01-26] MEDS ORDERED: diphenhydrAMINE HCL 25 MG CAP PO ONE (21:45)
[2017-01-26] MEDS ORDERED: TEMAZEPAM 7.5 MG CAP PO PRN (21:45)
[2017-01-26] MEDS ORDERED: ACETAMINOPHEN 325 MG TAB PO ONE (21:45)
[2017-01-27] VITALS: BP 118/69; PULSE 76; RESP 22; TEMP 97.8; O2SAT 91
[2017-01-27 04:00] VITALS: BP 138/91; PULSE 78; RESP 22; TEMP 97.2; O2SAT 99
[2017-01-27 05:08] LABS: BACTERIA, URINE RARE /hpf; BLOOD, URINE NEG (NEG); GLUCOSE,URINE NEG (NEG); KETONE, URINE NEG (NEG); NITRITE,URINE NEG (NEG); SQUAMOUS EPITHELIAL CELL URINE <1 /hpf (0-5); URINE COLOR LIGHT-YELLOW (YELLW/STRAW)
[2017-01-27 05:09] LABS: COMMENT (UR) CULT NOT INDICATED; CULTURE IF INDICATED CULT NOT INDICATED
[2017-01-27 08:00] VITALS: BP 138/93; PULSE 93; RESP 19; TEMP 97.4; O2SAT 94
[2017-01-27] MEDS: METHADONE 10 MG/ML VIAL IM PRN (08:03)
[2017-01-27] MEDS: ONDANSETRON ODT 4 MG TAB PO SCH ×2 (08:03→13:17)
[2017-01-27] MEDS: METOPROLOL TARTRATE 25 MG TAB PO SCH (08:03)
[2017-01-27] MEDS: BUDESONIDE-FORMOTEROL 160/4.5 MCG INHALER INH SCH (08:04)
[2017-01-27] MEDS: SODIUM CHLORIDE 0.9% FLUSH 10 ML FLUSH IV FLUSH SCH (08:04)
[2017-01-27 10:24] LABS: AUTOMATED NEUTROPHIL # 6.9 TH/MM3 (1.8-7.7); BASOPHIL # 0.1 TH/MM3 (0-0.2); EOSINOPHIL # 0.4 TH/MM3 (0-0.4); EOSINOPHIL % 4.4 % (0.0-4.0); HEMATOCRIT 27.6 % (35.0-46.0); HEMO FLAGS DIFF FINAL; LYMPH % 7.3 % (9.0-44.0); LYMPHOCYTE # 0.7 TH/MM3 (1.0-4.8); MEAN CELL VOLUME 83.9 FL (80.0-100.0); MEAN CORPUSCULAR HEMOGLOBIN 29.1 PG (27.0-34.0); MEAN CORPUSCULAR HGB CONC 34.6 % (32.0-36.0); MONO % 13.3 % (0.0-8.0); PLATELET COUNT 246 TH/MM3 (150-450); RED BLOOD COUNT 3.29 MIL/MM3 (4.00-5.30); RED CELL DISTRIBUTION WIDTH 20.3 % (11.6-17.2); WHITE BLOOD COUNT 9.4 TH/MM3 (4.0-11.0)
[2017-01-27 10:31] LABS: INTERNATIONAL NORMALIZED RATIO 1.2 RATIO; PROTHROMBIN TIME - PATIENT 13.2 SEC (9.8-11.6)
[2017-01-27] MEDS ORDERED: ASPI81TA11 PO (10:58)
--- NOTE | 2017-01-27 11:11 | HHI.PR ---
Subjective Remarks Follow up for Anemia, fall, scalp bleed. Patient is doing well. No acute concerns. Oncology saw patient and okay to discharge if hgb > 8.0. Her repeat Hgb 9.6. Objective Vitals Vital Signs Date Time Temp Pulse Resp B/P Pulse Ox O2 Delivery O2 Flow Rate FiO2 01/27/17 08:00 97.4 93 19 138/93 94 01/27/17 04:00 97.2 78 22 138/91 99 01/27/17 01:00 01/27/17 00:00 97.8 76 22 118/69 91 01/26/17 22:20 97.9 75 20 122/70 95 01/26/17 20:24 97.8 78 22 139/84 96 01/26/17 17:07 97.3 74 20 95/59 96 01/26/17 16:15 97.0 77 22 97/53 97 01/26/17 15:45 98.7 81 20 90/57 92 01/26/17 15:30 98.7 81 20 90/57 92 01/26/17 12:10 97.4 79 20 103/63 95 I/O 01/26/17 01/26/17 01/26/17 01/27/17 01/27/17 01/27/17 07:00 15:00 23:00 07:00 15:00 23:00 Intake Total 1380 ml 1000 ml 690 ml 680 ml Balance 1380 ml 1000 ml 690 ml 680 ml Intake Oral 360 ml 380 ml Packed Cells 330 ml 300 ml FFP 1380 ml Other 1000 ml # Voids 2 4 # Bowel Movements 0 0 Result Diagram: 01/27/17 1003 01/26/17 0754 Imaging Last Impressions Chest X-Ray 01/25/17 2112 Signed Impressions: Service Date/Time: Wednesday, January 25, 2017 21:49 - CONCLUSION: 1. Right basilar consolidation is again noted and stable. Nakul Munoz MD Head CT 01/25/17 0000 Signed Impressions: Service Date/Time: Wednesday, January 25, 2017 21:32 - CONCLUSION: No acute infarct, acute hemorrhage, mass effect or extra-axial fluid collections. Minimal periventricular white matter small vessel ischemic changes bilaterally. Irregularly-shaped chronically calcified left globe which is stable. Nakul Munoz MD Objective Remarks GENERAL: AOX3, NAD. SKIN: Warm and dry. HEAD: Normocephalic, wrapped due to fall and injury. EYES: No scleral icterus. No injection or drainage. NECK: Supple, trachea midline. No JVD or lymphadenopathy. CARDIOVASCULAR: Regular rate and rhythm without murmurs, gallops, or rubs. RESPIRATORY: Breath sounds equal bilaterally. No accessory muscle use. GASTROINTESTINAL: Abdomen soft, non-tender, nondistended. MUSCULOSKELETAL: No cyanosis, or edema. BACK: Nontender without obvious deformity. No CVA tenderness. Procedures None. A/P Problem List: (1) Subtherapeutic international normalized ratio (INR) ICD Code: R79.1 Status: Acute (2) Fall ICD Code: W19.XXXA Status: Acute (3) Leukocytosis ICD Code: D72.829 Status: Acute (4) Anemia ICD Code: D64.9 Status: Acute (5) Lung cancer ICD Code: C34.90 Status: Chronic (6) Hypokalemia ICD Code: E87.6 Status: Acute (7) Hypocalcemia ICD Code: E83.51 Status: Acute Assessment and Plan Ms. Ford is a 61 y/o female with a history of COPD, Lung Cancer, HTN, Hep C, Retinal detachment and Cervical cancer was brought in by EMS after suffering a fall. Her hemoglobin was 7.4 on admission. She apparently received 1 unit of PRBCs and 4 units of FFP as well as PO vitamin K. INR on admission was 5.6. CT head did not show any intracranial hemorrhage. However, patient had a lot of skull, superficial bleed. - Acute blood loss anemia - s/p 2 units of PRBCs. Hgb improved to 9.6. - Hypotension - resolved. Patient received NS fluid as well as PRBCs. - Chronic methadone use - Confirmed dosage of 160mg methadone daily. She goes to [facility]. I discussed and confirmed the dosage with [facility] methadone clinic. - Discussed with patient regarding tapering off Methadone. Patient is motivated to taper herself off. - COPD - Stage III lung cancer - Fall - Head CT unremarkable. - Patient follows up with Dr. Braxton. - Continue Albuterol inh, Symbicort. - Atrial fibrillation - [id number] score 1 (female). - Discussed with Dr. Braxton. We would avoid any anti-coagulation for now. We would recommend daily aspirin. Patient agrees with this plan. Full code. Discharge patient to home Condition on discharge: Improved Regular Diet as tolerated Ad Asuncion activity Rx written: - Aspirin 81mg Qday - STOP WARFARIN Follow-up with Oncology in 1 week. Problem Qualifiers (1) Fall: Qualified Code: W19.XXXA - Fall, initial encounter (2) Anemia: Qualified Code: D62 - Acute posthemorrhagic anemia Karina Harris DO Jan 27, 2017 11:11 am
[2017-01-27 12:00] VITALS: BP 123/80; PULSE 86; RESP 18; TEMP 98.9; O2SAT 92
--- NOTE | 2017-01-27 16:36 | PD.ONC.PN ---
Subjective Subjective Remarks Late entry. Saw patient 01/27/17 0730. No more bleeding. Objective Data Date Time Temp Pulse Resp B/P Pulse Ox O2 Delivery O2 Flow Rate FiO2 01/27/17 12:00 98.9 86 18 123/80 92 01/27/17 08:00 97.4 93 19 138/93 94 01/27/17 04:00 97.2 78 22 138/91 99 01/27/17 01:00 01/27/17 00:00 97.8 76 22 118/69 91 01/26/17 22:20 97.9 75 20 122/70 95 01/26/17 20:24 97.8 78 22 139/84 96 01/26/17 17:07 97.3 74 20 95/59 96 01/27/17 01/27/17 01/27/17 07:00 15:00 23:00 Intake Total 680 ml 720 ml Balance 680 ml 720 ml Result Diagram: 01/27/17 1003 01/26/17 0754 Laboratory Results Laboratory Tests Test 01/27/17 01/27/17 04:40 10:03 Urine Color LIGHT-YELLOW Urine Turbidity CLEAR Urine pH 7.0 Urine Specific [place] 1.004 Urine Protein NEG mg/dL Urine Glucose (UA) NEG mg/dL Urine Ketones NEG mg/dL Urine Occult Blood NEG Urine Nitrite NEG Urine Bilirubin NEG Urine Urobilinogen LESS THAN 2.0 MG/DL Urine Leukocyte Esterase NEG Urine WBC LESS THAN 1 /hpf Urine Squamous Epithelial <1 /hpf Cells Urine Bacteria RARE /hpf Microscopic Urinalysis Comment CULT NOT INDICATED White Blood Count 9.4 TH/MM3 Red Blood Count 3.29 MIL/MM3 Hemoglobin 9.6 GM/DL Hematocrit 27.6 % Mean Corpuscular Volume 83.9 FL Mean Corpuscular Hemoglobin 29.1 PG Mean Corpuscular Hemoglobin 34.6 % Concent Red Cell Distribution Width 20.3 % Platelet Count 246 TH/MM3 Mean Platelet Volume 7.0 FL Neutrophils (%) (Auto) 74.0 % Lymphocytes (%) (Auto) 7.3 % Monocytes (%) (Auto) 13.3 % Eosinophils (%) (Auto) 4.4 % Basophils (%) (Auto) 1.0 % Neutrophils # (Auto) 6.9 TH/MM3 Lymphocytes # (Auto) 0.7 TH/MM3 Monocytes # (Auto) 1.2 TH/MM3 Eosinophils # (Auto) 0.4 TH/MM3 Basophils # (Auto) 0.1 TH/MM3 CBC Comment DIFF FINAL Differential Comment Prothrombin Time 13.2 SEC Prothromb Time International 1.2 RATIO Ratio Objective Remarks GENERAL: Well-nourished, well-developed patient. SKIN: Warm and dry. HEAD: Normocephalic. Dressing is dry. EYES: No scleral icterus. No injection or drainage. Left eye cloudiness. NECK: Supple, trachea midline. No JVD or lymphadenopathy. LYMPHATIC: No adenopathy. CARDIOVASCULAR: Regular rate and rhythm without murmurs. RESPIRATORY: Breath sounds equal bilaterally. No accessory muscle use. GASTROINTESTINAL: Abdomen soft, non-tender, nondistended. EXTREMITIES: No cyanosis, or edema. MUSCULOSKELETAL: Adequate muscle tone. NEUROLOGICAL: No obvious focal deficit. Awake, alert, and oriented x3. PSYCHIATRIC: Appropriate mood and affect; insight and judgment normal. Assessment/Plan Assessment 1. Head trauma with scalp laceration. She had stitches placed in the ED. She has coagulopathy due to Coumadin. INR was 5.6 when she presented. Her hemoglobin dropped from 11.[address] head did not show intracerebral hemorrhage. She has received 4 units FFP and INR is reversed and down to 1.4. She has received 3unit of packed red blood cells. --12/31/29 Hgb has trended up. No bleeding noted this am. 2. Non-small cell lung carcinoma stage III A. She had large right hilar mass extended to the infrahilar region causing collapse of right lower lobe measured 8.2 cm. There were also multiple hilar and mediastinal enlarged lymph nodes. She was treated with radiation along with concurrent carboplatin, Taxol which she just completed recently. She had good response to treatment. She has recovered well from the side effect. She was scheduled to start consolidation chemotherapy tomorrow but I am going to hold chemotherapy until her head wound is healed. No other oncologic intervention planned for this admission. 3. Chronic obstructive pulmonary disease, stable. 4. Paroxysmal atrial fibrillation. She was on Coumadin. Due to her scalp laceration and bleeding, Coumadin is now discontinued. 5. History of drug abuse. She is on methadone. 6. Right kidney mass noted on last CT scan. This will need to be addressed once she completed her lung cancer treatment. Plan PLAN 1. Can be d/c from oncology standpoint. 2. Follow up with the oncology clinic after discharge to resume chemotherapy. Discussed with Dr. Harris. Harshil Braxton MD Jan 27, 2017 16:36
== END 2017-01-27 13:35 | disposition home or self-care (01) | DRG 605 ==
LOC: NEPC 20:43 → NEDA 23:47 → N06B 01-26 05:24
PROVIDERS: ADMIT Hospitalist; ATTEND Hospitalist
PROC: 0HQ0XZZ Repair Scalp Skin, External Approach (ICD-10-PCS; principal; 2017-01-26)
PROC: 30233K1 Transfusion of Nonautologous Frozen Plasma into Peripheral Vein, Percutaneous Approach (ICD-10-PCS; 2017-01-26)
PROC: 30233N1 Transfusion of Nonautologous Red Blood Cells into Peripheral Vein, Percutaneous Approach (ICD-10-PCS; 2017-01-26)
DX: S01.01XA Laceration without foreign body of scalp, initial encounter (principal); D62 Acute posthemorrhagic anemia; E83.51 Hypocalcemia; F11.20 Opioid dependence, uncomplicated; I48.0 Paroxysmal atrial fibrillation; C34.31 Malignant neoplasm of lower lobe, right bronchus or lung; H33.22 Serous retinal detachment, left eye; W01.0XXA Fall on same level from slipping, tripping and stumbling without subsequent striking against object, initial encounter; Y92.481 Parking lot as the place of occurrence of the external cause; J44.9 Chronic obstructive pulmonary disease, unspecified; I10 Essential (primary) hypertension; R79.1 Abnormal coagulation profile; E87.6 Hypokalemia; Z79.01 Long term (current) use of anticoagulants; N28.89 Other specified disorders of kidney and ureter; B19.20 Unspecified viral hepatitis C without hepatic coma; F17.210 Nicotine dependence, cigarettes, uncomplicated
CPT/HCPCS: 12001; 36430; 70450; 71010; 80053; 80069; 81001; 83690; 83735; 84155; 85007; 85014; 85018; 85025; 85027; 85610; 85730; 86850; 86900; 86901; 86920; 86927; 96360; 96361; 96374; 96375; 96376; 96523; 99215; G0463; J0610; J1230; J1642; J2405; J2765; J3475; J7030; J7050; P9016; P9017

== ENCOUNTER 2017-02-03 12:51 | Inpatient (IN) | payer MEDICAID ==
[2017-02-03] VITALS (9 sets, daily range): BP systolic 114–208; BP diastolic 68–122; PULSE 80–109; RESP 18–24; TEMP 97.4–98.4; O2SAT 75–96
[~2017-02-03] VITALS: Ht 162.6 cm; Wt 61.2 kg
[~2017-02-03 12:51] MED LIST changes: +ASPI81TA11 PO; -COUM2.5T PO; +METH10CO4 PO; -METH40TA2 PO; -PRED10PA2 PO
--- NOTE | 2017-02-03 13:23 | PD ---
HPI Chief Complaint: Respiratory Symptoms Time Seen by Provider: 13:22 Travel History International Travel<30 days: No Contact w/Intl Traveler<30days: No Traveled to known affect area: No History of Present Illness HPI 61-year-old female with history of CVA, seizure disorder, A. fib, hypertension, COPD, stage III non-small cell lung cancer followed by Dr. Braxton, presents to the emergency department for evaluation of worsening shortness of breath over the last 2 days. Patient states she has had a more productive cough. It is difficult to take a deep breath. Denies fever or chills. Patient has been undergoing chemo and radiation treatments and state she has been doing well. Patient states that she was to have chemotherapy last week but had a fall and suffered a head injury and was unable to get it. She is scheduled for next week. Denies any chest pain. States that she is unable to walk short distances without severe shortness of breath. She has been nauseous without vomiting. No diarrhea. No other symptoms to report. PFSH Past Medical History Hx Anticoagulant Therapy: Yes (LOW DOSE ASPIRIN) Autoimmune Disease: No Anxiety: Yes Depression: No Cancer: Yes (CERVICAL, LUNG) Cardiovascular Problems: Yes (htn) Chemotherapy: Yes (CURRENT FOR LUNG) COPD: Yes Cerebrovascular Accident: Yes (seizures) Coronary Artery Disease: No Diabetes: No Diminished Hearing: No Gastrointestinal Disorders: Yes (vomitting) Genitourinary: No Hypertension: Yes Immune Disorder: No Musculoskeletal: No Neurologic: No Psychiatric: No Respiratory: Yes (COPD) Immunizations Current: Yes Seizures: Yes (in past drug related) PNEUMOCCOCAL Vaccine (Year): 2 Menopausal: Yes : 3 Para: 2 Miscarriage: 1 Dilation and Curettage (D&C): Yes Past Surgical History Eye Surgery: Yes (CATARAC AND RETINAL SURGERY IN THE LEFT EYE) Gynecologic Surgery: Yes (CERVICAL CONE SURGERY FOR CANCER) Other Surgery: Yes Family History Family Myocardial Infarction: Yes (SISTER MASSIVE CO) Social History Alcohol Use: No Tobacco Use: No Substance Use: No Allergies-Medications (Allergen,Severity, Reaction): Coded Allergies: Sulfa (Verified Allergy, Severe, HIVES, 02/03/17) Toradol (Verified Allergy, Mild, HIVES, 02/03/17) Reported Meds & Prescriptions Reported Meds & Active Scripts Active Aspirin EC (Aspirin) 81 Mg Tabdr 81 Mg PO DAILY Metoprolol Tartrate 25 Mg Tab 25 Mg PO Q12HR Symbicort Inh (Budesonide/Formoterol Fumarate) 160-4.5 Mcg/Act Aero 2 Puff INH Q12HR Norvasc (Amlodipine Besylate) 5 Mg Tab 2.5 Mg PO DAILY Ventolin Hfa 18 GM Inh (Albuterol Sulfate) 90 Mcg/Act Aer 1 Puff INH Q4H PRN Restoril (Temazepam) 7.5 Mg Cap 7.5 Mg PO HS PRN Oxygen tank (Oxygen) 1 Ea Tank 2 Liter DIANE.CANULA CONTINUOUS PRN Oxygen Concentrator Portable Gaseous 2 L/min via Nasal Cannula Continuous For 99 months Reported Methadose Liq (Methadone HCl) 10 Mg/Ml Conc 160 Mg PO DAILY Ondansetron (Ondansetron HCl) 8 Mg Tab 8 Mg PO TID Review of Systems Except as stated in HPI: all other systems reviewed are Neg Physical Exam Narrative GENERAL: Well-nourished female patient, sitting in bed in mild respiratory distress SKIN: Focused skin assessment warm/dry. HEAD: Atraumatic. Normocephalic. EYES: Pupils round, reactive in the right eye. Thick cataract of the left eye. No scleral icterus. No injection or drainage. ENT: No nasal bleeding or discharge. Mucous membranes pink and moist. NECK: Trachea midline. No JVD. CARDIOVASCULAR: Elevated rate and rhythm. No murmur appreciated. RESPIRATORY: No accessory muscle use. Inspiratory next story wheeze, coarse throughout; diminished bases. GASTROINTESTINAL: Abdomen soft, non-tender, nondistended. Hepatic and splenic margins not palpable. MUSCULOSKELETAL: No obvious deformities. No clubbing. No cyanosis. No edema. NEUROLOGICAL: Awake and alert. No obvious cranial nerve deficits. Motor grossly within normal limits. Normal speech. PSYCHIATRIC: Appropriate mood and affect; insight and judgment normal. Data Data Last Documented VS Vital Signs Date Time Temp Pulse Resp B/P Pulse Ox O2 Delivery O2 Flow Rate FiO2 02/03/17 13:48 94 Nasal Cannula 2.00 02/03/17 13:28 18 02/03/17 13:10 97 02/03/17 13:06 98.4 136/74 Orders Complete Blood Count With Diff (02/03/17 13:19) Comprehensive Metabolic Panel (02/03/17 13:19) B-Type Natriuretic Peptide (02/03/17 13:19) Act Partial Throm Time (Ptt) (02/03/17 13:19) Prothrombin Time / Inr (Pt) (02/03/17 13:19) Urinalysis - C+S If Indicated (02/03/17 13:19) Influenzae A/B Antigen (02/03/17 13:19) Iv Access Insert/Monitor (02/03/17 13:19) Electrocardiogram (02/03/17 13:19) Ecg Monitoring (02/03/17 13:19) Oximetry (02/03/17 13:19) Oxygen Administration (02/03/17 13:19) Chest, Single Ap (02/03/17 13:19) Sodium Chloride 0.9% Flush (Ns Flush) (02/03/17 13:30) Methylprednisolone So Succ Inj (Solumedr (02/03/17 13:30) Albuterol-Ipratropium Neb (Duoneb Neb) (02/03/17 13:30) Ondansetron Inj (Zofran Inj) (02/03/17 14:30) Invasive Rad Dept Consult (02/03/17 ) Labs Laboratory Tests Test 02/03/17 13:45 White Blood Count 12.8 TH/MM3 Red Blood Count 3.68 MIL/MM3 Hemoglobin 10.5 GM/DL Hematocrit 31.7 % Mean Corpuscular Volume 86.2 FL Mean Corpuscular Hemoglobin 28.5 PG Mean Corpuscular Hemoglobin 33.1 % Concent Red Cell Distribution Width 19.5 % Platelet Count 344 TH/MM3 Mean Platelet Volume 7.6 FL Neutrophils (%) (Auto) 82.5 % Lymphocytes (%) (Auto) 5.8 % Monocytes (%) (Auto) 9.5 % Eosinophils (%) (Auto) 1.5 % Basophils (%) (Auto) 0.7 % Neutrophils # (Auto) 10.5 TH/MM3 Lymphocytes # (Auto) 0.7 TH/MM3 Monocytes # (Auto) 1.2 TH/MM3 Eosinophils # (Auto) 0.2 TH/MM3 Basophils # (Auto) 0.1 TH/MM3 CBC Comment DIFF FINAL Differential Comment Prothrombin Time 11.5 SEC Prothromb Time International 1.0 RATIO Ratio Activated Partial 25.9 SEC Thromboplast Time Sodium Level 134 MEQ/L Potassium Level 3.8 MEQ/L Chloride Level 96 MEQ/L Carbon Dioxide Level 34.8 MEQ/L Anion Gap 3 MEQ/L Blood Urea Nitrogen 9 MG/DL Creatinine 0.73 MG/DL Estimat Glomerular Filtration 81 ML/MIN Rate Random Glucose 194 MG/DL Calcium Level 8.7 MG/DL Total Bilirubin 0.6 MG/DL Aspartate Amino Transf 21 U/L (AST/SGOT) Alanine Aminotransferase 14 U/L (ALT/SGPT) Alkaline Phosphatase 63 U/L B-Type Natriuretic Peptide 464 PG/ML Total Protein 7.4 GM/DL Albumin 2.5 GM/DL MDM Medical Decision Making Medical Screen Exam Complete: Yes Emergency Medical Condition: Yes Medical Record Reviewed: Yes Differential Diagnosis COPD exacerbation versus metastatic disease versus pneumonia versus effusion versus sepsis versus hypoxia Narrative Course 61-year-old female presents to emergency department for evaluation worsening shortness of breath. Patient is hypoxic upon arrival. Oxygen is supplied via nasal cannula and oxygen saturation increases. Patient is given 2 neb treatments and Solu-Medrol IV. Upon reassessment, patient states that she does feel low but better. Nasal cannula is removed and patient's oxygen saturation decreases to 85% on room air. Oxygen was reapplied. I discussed the patient maintain physician who agrees the patient will benefit from observation status. I spoke with , the patient's oncologist requests admission to medicine , consult to interventional radiology for thoracentesis. A call is made to HOSPITALIST for admission. Diagnosis Primary Impression: Hypoxia Additional Impressions: Pleural effusion on right COPD exacerbation Non-small cell carcinoma of right lung, stage 3 Admitting Information Admitting Physician Requests: Observation Condition: Stable Donya Steel Feb 03, 2017 13:23
[2017-02-03] MEDS ORDERED: SODIUM CHLORIDE 0.9% FLUSH 10 ML FLUSH IVF PRN (13:30)
[2017-02-03] MEDS ORDERED: methylPREDNISolone SOD SUCC 125 MG/2 ML VIAL IVP ONE (13:30)
--- NOTE | 2017-02-03 13:43 | RADRPT ---
EXAM DATE/TIME: 02/03/2017 13:20 [facility] COMPARISON: CHEST SINGLE AP, January 25, 2017, 21:49. INDICATIONS : Short of breath. MEDICAL HISTORY : Chronic obstructive pulmonary disease. Congestive heart failure. Carcinoma, lung. atrial fibrilla tion SURGICAL HISTORY : None. ENCOUNTER: Initial ACUITY: 1 day PAIN SCORE: 0/10 LOCATION: Bilateral chest FINDINGS: Right chest port is in good position. Right base effusion and parenchymal consolidation are present s lightly worse than on previous exam. Left lung remains clear. Visualized cardiac contours are grossly stable CONCLUSION: Some interval worsening in right base infiltrate and effusion Omar Arnold MD on February 03, 2017 at 13:41 Board Certified Radiologist. This report was verified electronically.
[2017-02-03] MEDS: RESP: ALBUTEROL 2.5 MG/IPRATROPIUM 0.5 MG NEB (SCH) INH ×3 (13:45→19:34)
[2017-02-03 14:01] LABS: AUTOMATED NEUTROPHIL # 10.5 TH/MM3 (1.8-7.7); BASOPHIL # 0.1 TH/MM3 (0-0.2); BASOPHIL % 0.7 % (0.0-2.0); EOSINOPHIL # 0.2 TH/MM3 (0-0.4); EOSINOPHIL % 1.5 % (0.0-4.0); HEMATOCRIT 31.7 % (35.0-46.0); HEMO FLAGS DIFF FINAL; LYMPH % 5.8 % (9.0-44.0); LYMPHOCYTE # 0.7 TH/MM3 (1.0-4.8); MEAN CELL VOLUME 86.2 FL (80.0-100.0); MEAN CORPUSCULAR HEMOGLOBIN 28.5 PG (27.0-34.0); MEAN CORPUSCULAR HGB CONC 33.1 % (32.0-36.0); MONO % 9.5 % (0.0-8.0); NEUT % 82.5 % (16.0-70.0); PLATELET COUNT 344 TH/MM3 (150-450); RED BLOOD COUNT 3.68 MIL/MM3 (4.00-5.30); RED CELL DISTRIBUTION WIDTH 19.5 % (11.6-17.2); WHITE BLOOD COUNT 12.8 TH/MM3 (4.0-11.0)
[2017-02-03 14:14] LABS: APTT (PATIENT) 25.9 SEC (24.3-30.1); PROTHROMBIN TIME - PATIENT 11.5 SEC (9.8-11.6)
[2017-02-03 14:20] LABS: ALT (GPT) 14 U/L (10-53); ANION GAP 3 MEQ/L (5-15); AST (GOT) 21 U/L (15-37); BICARBONATE 34.8 MEQ/L (21.0-32.0); BLOOD UREA NITROGEN 9 MG/DL (7-18); CHLORIDE 96 MEQ/L (98-107); GLOMERULAR FILTRATION RATE 81 ML/MIN (>89); POTASSIUM 3.8 MEQ/L (3.5-5.1); SODIUM (NA) 134 MEQ/L (136-145)
[2017-02-03 14:22] LABS: ALKALINE PHOSPHATASE 63 U/L (45-117); TOTAL BILIRUBIN ADULT 0.6 MG/DL (0.2-1.0)
[2017-02-03] MEDS ORDERED: ONDANSETRON HCL 4 MG/2 ML VIAL IV PUSH ONE (14:30)
--- NOTE | 2017-02-03 17:17 | HHI.HP ---
HPI Service Family Medicine Primary Care Physician Kevin Chaudhry MD Admission Diagnosis hypoxia; R pleural effusion; COPD exacerbation Diagnoses: International Travel<30 Days: No Contact w/Intl Traveler<30days: No Known Affected Area: No History of Present Illness 61 yo female with PMH of stage III NSCLC currently receiving chemo and radiation , COPD, and HTN presenting with SOB starting yesterday malaise. Start was sudden but not intense, gradually worsened over evening. Present on waking up, didn't get better, so she thought she should come in to be evaluated. No fevers or chills. No sick contacts. Productive cough new since 5 days ago. Little bit of wheezing for that time as well. Lots of nausea, normal for her. No history of DVT/PE. Review of Systems Constitutional: DENIES: Fever, Chills Endocrine: DENIES: Polyuria Eyes: COMPLAINS OF: Vision loss (L eye cataract) Ears, nose, mouth, throat: DENIES: Ear Pain Respiratory: DENIES: Cough, Wheezing, Shortness of breath Cardiovascular: DENIES: Chest pain, Palpitations, Dyspnea on Exertion, Lower Extremity Edema Gastrointestinal: COMPLAINS OF: Nausea, DENIES: Abdominal pain, Black stools, Bloody stools, Diarrhea, Vomiting Genitourinary: DENIES: Dysuria Musculoskeletal: DENIES: Muscle aches Integumentary: DENIES: Rash Hematologic/lymphatic: DENIES: Bruising Neurologic: DENIES: Headache Psychiatric: DENIES: Depression Past Family Social History Past Medical History Stage III SCLC COPD AFib currently on low dose aspirin Chronic pain HTN Past Surgical History Eye surgery left eye, detached retina 2007 LEEP for class III pap smear Reported Medications Reported Meds & Active Scripts Active Metoprolol Tartrate 25 Mg Tab 25 Mg PO Q12HR Aspirin EC (Aspirin) 81 Mg Tabdr 81 Mg PO DAILY Symbicort Inh (Budesonide/Formoterol Fumarate) 160-4.5 Mcg/Act Aero 2 Puff INH Q12HR Norvasc (Amlodipine Besylate) 5 Mg Tab 2.5 Mg PO DAILY Ventolin Hfa 18 GM Inh (Albuterol Sulfate) 90 Mcg/Act Aer 1 Puff INH Q4H PRN Restoril (Temazepam) 7.5 Mg Cap 7.5 Mg PO HS PRN Oxygen tank (Oxygen) 1 Ea Tank 2 Liter DIANE.CANULA CONTINUOUS PRN Oxygen Concentrator Portable Gaseous 2 L/min via Nasal Cannula Continuous For 99 months Reported Methadose Liq (Methadone HCl) 10 Mg/Ml Conc 160 Mg PO DAILY Ondansetron (Ondansetron HCl) 8 Mg Tab 8 Mg PO TID Allergies: Coded Allergies: Sulfa (Verified Allergy, Severe, HIVES, 02/03/17) Toradol (Verified Allergy, Mild, HIVES, 02/03/17) Active Ordered Medications Current Medications Medications (Trade) Dose Ordered Sig/Félix Route Start Time Stop Time Status Last Admin (Norvasc) 2.5 mg DAILY PO 02/04/17 09:00 (Ecotrin Ec) 81 mg DAILY PO 02/03/17 17:30 (Symbicort 160-4.5 Inh) 2 puff Q12HR INH 02/03/17 21:00 (Lopressor) 25 mg Q12HR PO 02/03/17 21:00 (Restoril) 7.5 mg HS PRN PO 02/03/17 17:30 (Methadone Liq) 160 mg DAILY@06 PO 02/04/17 06:00 (Zofran Odt) 8 mg TID PO 02/04/17 09:00 (NS Flush) 2 ml UNSCH PRN IV FLUSH 02/03/17 17:30 (NS Flush) 2 ml BID IV FLUSH 02/03/17 21:00 (Lovenox Inj) 40 mg Q24H SQ 02/03/17 18:00 (Tylenol) 650 mg Q6H PRN PO 02/03/17 17:30 ([place] 5-325 Mg) 1 tab Q4H PRN PO 02/03/17 17:30 ([place] 10-325 Mg) 1 tab Q4H PRN PO 02/03/17 17:30 (Morphine Inj) 4 mg Q3H PRN IV 02/03/17 17:30 (Deltasone) 40 mg DAILY PO 02/03/17 17:30 (Zithromax) 500 mg Q24H PO 02/03/17 18:00 02/06/17 17:59 Family History Brother of lung cancer Sister both parents of heart disease Mom had DVT before, but no venous clotting disorders in family Social History Tobacco: None - 30 years x 1.5 PPD Alcohol: None Drug: Past history barbituates 3-4 yrs ago Physical Exam Vital Signs Vital Signs Date Time Temp Pulse Resp B/P Pulse Ox O2 Delivery O2 Flow Rate FiO2 02/03/17 13:48 94 Nasal Cannula 2.00 02/03/17 13:28 18 96 Nasal Cannula 4 02/03/17 13:28 96 Nasal Cannula 4 02/03/17 13:10 97 22 96 Nasal Cannula 4 02/03/17 13:06 98.4 99 22 136/74 75 02/03/17 12:52 97.8 109 24 208/122 89 Physical Exam GENERAL: WDWN adult white female appearing chronically ill with some hair loss from chemotherapy. Sitting comfortably in bed with NC in place in NAD SKIN: No rashes, ecchymoses or lesions. Cool and dry. HEAD: NC/AT. Healing wound on right posterior scalp from prior trauma. EYES: PERRL. EOMI. No conjunctival injection or drainage. ENT: MMM, OP without erythema, tonsillar swelling, or exudate. NECK: No JVD. CARDIOVASCULAR: NRRR. Normal S1/S2. No MRG RESPIRATORY: Diffuse expiratory wheezing in bilateral lung florez. No crackles. Dullness to percussion Right lower lung field. GASTROINTESTINAL: Abdomen soft, non-distended, non-tender. No hepato- splenomegaly or palpable masses. MUSCULOSKELETAL: Extremities without clubbing, cyanosis, or edema. No calf tenderness. Bridger's sign negative. NEUROLOGICAL: Awake and alert. Cranial nerves II through XII grossly intact. Moves all extremities without difficulty. Normal speech. Laboratory Laboratory Tests Test 02/03/17 13:45 White Blood Count 12.8 Red Blood Count 3.68 Hemoglobin 10.5 Hematocrit 31.7 Mean Corpuscular Volume 86.2 Mean Corpuscular Hemoglobin 28.5 Mean Corpuscular Hemoglobin 33.1 Concent Red Cell Distribution Width 19.5 Platelet Count 344 Mean Platelet Volume 7.6 Neutrophils (%) (Auto) 82.5 Lymphocytes (%) (Auto) 5.8 Monocytes (%) (Auto) 9.5 Eosinophils (%) (Auto) 1.5 Basophils (%) (Auto) 0.7 Neutrophils # (Auto) 10.5 Lymphocytes # (Auto) 0.7 Monocytes # (Auto) 1.2 Eosinophils # (Auto) 0.2 Basophils # (Auto) 0.1 CBC Comment DIFF FINAL Differential Comment Prothrombin Time 11.5 Prothromb Time International 1.0 Ratio Activated Partial 25.9 Thromboplast Time Sodium Level 134 Potassium Level 3.8 Chloride Level 96 Carbon Dioxide Level 34.8 Anion Gap 3 Blood Urea Nitrogen 9 Creatinine 0.73 Estimat Glomerular Filtration 81 Rate Random Glucose 194 Calcium Level 8.7 Total Bilirubin 0.6 Aspartate Amino Transf 21 (AST/SGOT) Alanine Aminotransferase 14 (ALT/SGPT) Alkaline Phosphatase 63 B-Type Natriuretic Peptide 464 Total Protein 7.4 Albumin 2.5 Date/Time Procedure Status Source Growth 02/03/17 13:40 Influenza Types A,B Antigen ([place]) - Final Complete Nasal Washing NEGATIVE FOR FLU A AND B ANTIGEN.... Result Diagram: 02/03/17 1345 02/03/17 1345 Imaging Last Impressions Chest X-Ray 02/03/17 1319 Signed Impressions: Service Date/Time: , February 03, 2017 13:20 - CONCLUSION: Some interval worsening in right base infiltrate and effusion Omar Arnold MD Assessment and Plan Assessment and Plan [age] female with past medical history of stage III non-small cell lung cancer currently receiving chemotherapy and radiation, COPD, hypertension presenting with: Code Status Full code Problem List: (1) SOB (shortness of breath) Status: Acute Plan: Given history and exam, this is most likely due to COPD exacerbation in combination with slightly worsening of malignant pleural effusion. However, given malignancy pulmonary embolus is always a concern. Well's score of 1, low risk by these criteria. Unlikely to be CHF despite elevated BNP due to echocardiogram December 2016 showing ejection fraction 55-60%. WBC slightly elevated at 12.8 CXR showing right-sided pleural effusion - Manage COPD exacerbation as below - Manage pleural effusion as below - Given low risk by well score, d-dimer to rule out PE - No indication for cardiac monitoring at this time (2) COPD exacerbation Status: Acute Plan: History and exam findings consistent with COPD exacerbation, requiring oxygen to maintain saturation greater than 92% - Duo-nebs every 4 hours while awake - Albuterol neb every 2 hours as needed for shortness of breath - Prednisone 40 mg daily - Continue home Symbicort - Given increased sputum production, add azithromycin 500 mg daily 3 - Pulse oximetry - Oxygen titrated to maintain saturation greater than 92% (3) Hypoxia Status: Acute Plan: See above management (4) Pleural effusion on right Status: Acute Plan: Likely due to malignancy - Hematology/oncology consult, appreciate recommendations - Consult interventional radiology to drain pleural effusion - Will follow up as outpatient for further chemotherapy and radiation - Manage COPD exacerbation as above - Oxygen therapy as above (5) Non-small cell carcinoma of right lung, stage 3 Status: Chronic Plan: Currently receiving chemotherapy and radiation - Hematogenous/oncology consulted, appreciate recommendations - will follow up for outpatient treatment - Pain control with methadone as below - Percocet 5 and 10 mg for pain 3-5 and 6-10, respectively - Tylenol 650 PRN pain 1-2 (6) HTN (hypertension) Status: Acute (7) Methadone maintenance therapy patient Status: Chronic Plan: Continue home methadone treatment 160 mg PO daily @ 0600 (8) FEN/PPX Status: Acute Plan: Fluids: Tolerating PO Elecs: Monitor and replete as needed Nutrition: Diet regular basic DVT: Lovenox 40 mg SQ daily dw Dr. Dominguez Physician Certification 2 Midnight Certification Type: Admission for Inpatient Services Order for Inpatient Services The services are ordered in accordance with Medicare regulations or non- Medicare payer requirements, as applicable. In the case of services not specified as inpatient-only, they are appropriately provided as inpatient services in accordance with the 2-midnight benchmark. Estimated LOS (days): 2 2 days is the estimated time the patient will need to remain in the hospital, assuming treatment plan goals are met and no additional complications. Post-Hospital Plan: Home Derick Cai MD R1 Feb 03, 2017 17:17
[2017-02-03] MEDS ORDERED: METO25TA3 PO (17:20)
[2017-02-03] MEDS ORDERED: ACETAMINOPHEN/HYDROcodone 325 MG/10 MG TAB PO PRN (17:30)
[2017-02-03] MEDS ORDERED: MORPHINE SULFATE 4 MG/ML INJ IV PRN (17:30)
[2017-02-03] MEDS ORDERED: SODIUM CHLORIDE 0.9% FLUSH 10 ML FLUSH IV FLUSH PRN (17:30)
[2017-02-03] MEDS ORDERED: ACETAMINOPHEN/HYDROcodone 325 MG/5 MG TAB PO PRN (17:30)
[2017-02-03] MEDS ORDERED: RESP: ALBUTEROL 2.5 MG/3 ML NEB (PRN) INH (17:30)
[2017-02-03] MEDS: ASPIRIN EC 81 MG TABEC PO SCH (17:30)
[2017-02-03] MEDS ORDERED: ACETAMINOPHEN 325 MG TAB PO PRN (17:30)
[2017-02-03] MEDS: ENOXAPARIN SODIUM 40 MG/0.4 ML SYRINGE SQ SCH (18:00)
[2017-02-03] MEDS: predniSONE 20 MG TAB PO SCH (18:22)
[2017-02-03] MEDS: AZITHROMYCIN 250 MG TAB PO SCH (18:22)
[2017-02-03 19:25] LABS: BLOOD, URINE NEG (NEG); COMMENT (UR) CULT NOT INDICATED; CULTURE IF INDICATED CULT NOT INDICATED; GLUCOSE,URINE NEG (NEG); KETONE, URINE NEG (NEG); MUCUS URINE FEW /lpf (OCC); NITRITE,URINE NEG (NEG); PH, URINE 5.5 (5.0-8.5); SQUAMOUS EPITHELIAL CELL URINE 2 /hpf (0-5); URINE COLOR YELLOW (YELLW/STRAW)
[2017-02-03] MEDS ORDERED: IOHEXOL 350 MG/ML 10 ML VIAL (for RAD DIAG) IV ONE (20:34)
--- NOTE | 2017-02-03 20:45 | RADRPT ---
EXAM DATE/TIME: 02/03/2017 20:27 [facility] COMPARISON: CT PULMONARY ANGIOGRAM, November 29, 2016, 11:28. INDICATIONS : Acute shortness of breath and elevated D-dimer; evaluate for pulmonary embolism; history of cancer. IV CONTRAST: 65 cc Omnipaque 350 (iohexol) IV RADIATION DOSE: 23.38 CTDIvol (mGy) MEDICAL HISTORY : Hypertension. Chronic obstructive pulmonary disease. Carcinoma, lung.Carcinoma, cervical. SURGICAL HISTORY : None. ENCOUNTER: Initial ACUITY: 1 day PAIN SCALE: 0/10 LOCATION: chest TECHNIQUE: Volumetric scanning of the chest was performed using a pulmonary embolism protocol MIP images were re constructed. Using automated exposure control and adjustment of the mA and/or kV according to patien t size, radiation dose was kept as low as reasonably achievable to obtain optimal diagnostic quality images. FINDINGS: There is no evidence for PE for technique. There is a large right pleural effusion with consolid ation right lower lobe. In the left lower lobe posteromedially there is an approximate 1.2 cm mass wi th slight infiltrate adjacent to it not present previously. There is also vague infiltrate in the lef t upper lobe anteriorly with adjacent parenchymal consolidation and extending to the substernal locat ion in addition to infiltrate in the right upper lobe and right lower lobe. There are multiple simple cysts in the visualized liver. CONCLUSION: 1. There is no evidence for PE for technique. 2. Large right pleural effusion and right lung base consolidation. 3. Bilateral parenchymal infiltrates and left lung base nodule not present previously. Vanna Ashford MD on February 03, 2017 at 20:38 Board Certified Radiologist. This report was verified electronically.
[2017-02-03] MEDS: SODIUM CHLORIDE 0.9% FLUSH 10 ML FLUSH IV FLUSH SCH (21:00)
[2017-02-03] MEDS: BUDESONIDE-FORMOTEROL 160/4.5 MCG INHALER INH SCH (21:20)
[2017-02-03] MEDS: METOPROLOL TARTRATE 25 MG TAB PO SCH (21:21)
[2017-02-03] MEDS: FAMOTIDINE 20 MG TAB PO SCH (21:23)
[2017-02-03] MEDS: TEMAZEPAM 7.5 MG CAP PO PRN (22:33)
[2017-02-04] VITALS (9 sets, daily range): BP systolic 111–142; BP diastolic 63–76; PULSE 76–83; RESP 16–21; TEMP 97.1–98.4; O2SAT 93–97
[2017-02-04] MEDS: METHADONE HCL 10 MG/10 ML ORAL SOLUTION PO SCH (05:46)
[2017-02-04 07:39] LABS: AUTOMATED NEUTROPHIL # 15.3 TH/MM3 (1.8-7.7); BASOPHIL % 0.1 % (0.0-2.0); HEMATOCRIT 29.3 % (35.0-46.0); HEMO FLAGS DIFF FINAL; LYMPHOCYTE # 0.3 TH/MM3 (1.0-4.8); MEAN CELL VOLUME 86.3 FL (80.0-100.0); MEAN CORPUSCULAR HEMOGLOBIN 28.5 PG (27.0-34.0); MONO % 3.4 % (0.0-8.0); NEUT % 94.5 % (16.0-70.0); PLATELET COUNT 367 TH/MM3 (150-450); RED CELL DISTRIBUTION WIDTH 19.1 % (11.6-17.2); WHITE BLOOD COUNT 16.1 TH/MM3 (4.0-11.0)
[2017-02-04] MEDS: FAMOTIDINE 20 MG TAB PO SCH ×2 (07:56→20:45)
[2017-02-04] MEDS: METOPROLOL TARTRATE 25 MG TAB PO SCH ×2 (07:57→20:45)
[2017-02-04] MEDS: ASPIRIN EC 81 MG TABEC PO SCH (07:57)
[2017-02-04] MEDS: amLODIPine BESYLATE 5 MG TAB PO SCH (07:57)
[2017-02-04] MEDS: SODIUM CHLORIDE 0.9% FLUSH 10 ML FLUSH IV FLUSH SCH ×2 (07:57→20:45)
[2017-02-04] MEDS: ONDANSETRON ODT 4 MG TAB PO SCH ×3 (07:57→16:55)
[2017-02-04] MEDS: predniSONE 20 MG TAB PO SCH (07:58)
[2017-02-04] MEDS: BUDESONIDE-FORMOTEROL 160/4.5 MCG INHALER INH SCH ×2 (07:58→20:46)
[2017-02-04 08:03] LABS: BICARBONATE 33.1 MEQ/L (21.0-32.0); POTASSIUM 3.6 MEQ/L (3.5-5.1)
[2017-02-04] MEDS: RESP: ALBUTEROL 2.5 MG/IPRATROPIUM 0.5 MG NEB (SCH) INH ×4 (08:07→19:56)
--- NOTE | 2017-02-04 10:16 | HHI.FPPN ---
Subjective Remarks Suzanne Ford is a 61yo lady with history of COPD and stage III NSC Lung CA currently treated with XRT and chemo admitted for acute worsening of SOB the day prior to admission. No fevers, chills. + cough, productive x 5 days. For further details, please see resident H&P. This morning, she feels like her breathing is a bit better. She denies chest pain but does endorse a pain at R posterior ribs, at location of pleural effusion. She understands she will undergo thoracentesis today. ROS: + SOB (improving); No chest pain but + rib pain as above. No palpitations. No nausea/vomiting. All other systems reviewed are negative. PMH/PSxH/SocHx/FamHx: Per resident H&P. Significant for: Stage III NSC lung CA currently treated with chemo and XRT with next chemo due next week; COPD, HTN, A fib. H/O EYe surgery on left eye and LEEP. Brother with Lung CA. Fam hx also of heart disease. Quit tobacco - 45 pack year history. No alcohol. Prior barbiturate use, 3-4 years ago. Objective Vitals Vital Signs Date Time Temp Pulse Resp B/P Pulse Ox O2 Delivery O2 Flow Rate FiO2 02/04/17 08:07 96 Nasal Cannula 2.50 02/04/17 08:00 97.7 78 21 112/65 95 02/04/17 04:00 98.1 77 20 130/70 94 02/04/17 00:06 97.3 76 16 111/63 94 02/03/17 22:36 Nasal Cannula 2.00 02/03/17 21:41 97.4 80 20 120/69 96 02/03/17 20:14 94 20 137/70 94 Nasal Cannula 2 02/03/17 19:35 96 Nasal Cannula 3.00 02/03/17 19:05 102 22 140/68 93 Nasal Cannula 2 02/03/17 18:23 97 20 114/71 95 Nasal Cannula 2 02/03/17 13:48 94 Nasal Cannula 2.00 02/03/17 13:28 18 96 Nasal Cannula 4 02/03/17 13:28 96 Nasal Cannula 4 02/03/17 13:10 97 22 96 Nasal Cannula 4 02/03/17 13:06 98.4 99 22 136/74 75 02/03/17 12:52 97.8 109 24 208/122 89 I/O 02/03/17 02/03/17 02/03/17 02/04/17 02/04/17 02/04/17 07:00 15:00 23:00 07:00 15:00 23:00 Intake Total 240 ml Balance 240 ml Intake Oral 240 ml # Voids 3 Result Diagram: 02/04/17 0658 02/04/17 06 Objective Remarks GENERAL: in NAD, no resp distress. Talks in complete sentences. Nasal cannula in place. HEENT: NCAT, Clouding of left eye. R eye WNL. MMM. Poor dentition. Nasal cannula in place. NECK: Supple, no meningeal signs. CV: RRR, S1 S2. No murmurs CHEST/PULM: Diffuse insp and exp wheeze throughout. Decreased sounds at R lung base consistent with effusion. ABD/GI: +BS, soft, nontender, nondistended EXT: 2+ DP pulses. No calf tenderness. No significant edema NEURO: Awake, alert. Normal muscle tone. Grossly WNL SKIN: No rashes, no jaundice. PSYCH: Mood and affect are appropriate. Speech fluent. Does not appear to respond to internal stimuli. A/P Assessment and Plan 7-7-pxne-old female with past medical history of stage III non-small cell lung cancer currently receiving chemotherapy and radiation, COPD, hypertension presenting with: Attending Attestation The patient has been seen and examined. The chart and all resident notes have been reviewed. I agree that inpatient care is appropriate and that a two midnight stay is expected for the reasons documented in the resident history and physical. I have discussed this with the resident and certify the resident s order for inpatient admission. Problem List: (1) SOB (shortness of breath) Status: Acute Plan: Given history and exam, this is most likely due to COPD exacerbation in combination with slightly worsening of malignant pleural effusion. Reassured by Negative CTA at admission. 12/2016 echo with EF 55-60%. Provide oxygen supplementation as needed. (2) COPD exacerbation Status: Acute Plan: History and exam findings consistent with COPD exacerbation, requiring oxygen to maintain saturation greater than 92% - Duo-nebs every 4 hours while awake - Albuterol neb every 2 hours as needed for shortness of breath - Prednisone 40 mg daily - Continue home Symbicort - Given increased sputum production, add azithromycin 500 mg daily 3. Of note, her QT is normal on EKG. - Pulse oximetry - Oxygen titrated to maintain saturation greater than 92% (3) Hypoxia Status: Acute Plan: See above management (4) Pleural effusion on right Status: Acute Plan: Likely due to malignancy. However, patient has never had a diagnostic thoracentesis. Will perform appropriate studies on pleural fluid. - Hematology/oncology consult, appreciate recommendations - Consult interventional radiology to drain pleural effusion - Will follow up as outpatient for further chemotherapy and radiation - Oxygen therapy as above (5) Non-small cell carcinoma of right lung, stage 3 Status: Chronic Plan: Currently receiving chemotherapy and radiation. Per pt, next chemotherapy is due next week. - Will hold off on hematology / oncology consult at this time as no chemotherapeutic intervention is planned. - Pain control with methadone as below - Percocet 5 and 10 mg for pain 3-5 and 6-10, respectively - Tylenol 650 PRN pain 1-2 (6) HTN (hypertension) Status: Chronic Plan: Continue home medications. Blood pressure is stable. (7) Methadone maintenance therapy patient Status: Chronic Plan: Continue home methadone treatment 160 mg PO daily @ 0600 Methadone is for chronic pain per patient Samantha Florez MD Feb 04, 2017 10:16 Samantha Florez MD Feb 04, 2017 10:[address] MD Feb 04, 2017 10:16 02/03/17 21:41 97.4 80 20 120/69 96 02/03/17 20:14 94 20 137/70 94 Nasal Cannula 2 02/03/17 19:35 96 Nasal Cannula 3.00 02/03/17 19:05 102 22 140/68 93 Nasal Cannula 2 02/03/17 18:23 97 20 114/71 95 Nasal Cannula 2 02/03/17 13:48 94 Nasal Cannula 2.00 02/03/17 13:28 18 96 Nasal Cannula 4 02/03/17 13:28 96 Nasal Cannula 4 02/03/17 13:10 97 22 96 Nasal Cannula 4 02/03/17 13:06 98.4 99 22 136/74 75 02/03/17 12:52 97.8 109 24 208/122 89 I/O 02/03/17 02/03/17 02/03/17 02/04/177/17 4/7/17 07:00 15:00 23:00 07:00 15:00 23:00 Intake Total 240 ml Balance 240 ml Intake Oral 240 ml # Voids 3 Result Diagram: 02/04/1765702/04/17657 Objective Remarks GENERAL: in NAD, no resp distress. Talks in complete sentences. Nasal cannula in place. HEENT: NCAT, Clouding of left eye. R eye WNL. MMM. Poor dentition. Nasal cannula in place. NECK: Supple, no meningeal signs. CV: RRR, S1 S2. No murmurs CHEST/PULM: Diffuse insp and exp wheeze throughout. Decreased sounds at R lung base consistent with effusion. ABD/GI: +BS, soft, nontender, nondistended EXT: 2+ DP pulses. No calf tenderness. No significant edema NEURO: Awake, alert. Normal muscle tone. Grossly WNL SKIN: No rashes, no jaundice. PSYCH: Mood and affect are appropriate. Speech fluent. Does not appear to respond to internal stimuli. A/P Assessment and Plan 1-6[age]old female with past medical history of stage III non-small cell lung cancer currently receiving chemotherapy and radiation, COPD, hypertension presenting with: Attending Attestation The patient has been seen and examined. The chart and all resident notes have been reviewed. I agree that inpatient care is appropriate and that a two midnight stay is expected for the reasons documented in the resident history and physical. I have discussed this with the resident and certify the resident s order for inpatient admission. Problem List: (1) SOB (shortness of breath) Status: Acute Plan: Given history and exam, this is most likely due to COPD exacerbation in combination with slightly worsening of malignant pleural effusion. However, given malignancy pulmonary embolus is always a concern. Well's score of 1, low risk by these criteria. Unlikely to be CHF despite elevated BNP due to echocardiogram December 2016 showing ejection fraction 55-60%. WBC slightly elevated at 12.8 CXR showing right-sided pleural effusion - Manage COPD exacerbation as below - Manage pleural effusion as below - Given low risk by well score, d-dimer to rule out PE - No indication for cardiac monitoring at this time (2) COPD exacerbation Status: Acute Plan: History and exam findings consistent with COPD exacerbation, requiring oxygen to maintain saturation greater than 92% - Duo-nebs every 4 hours while awake - Albuterol neb every 2 hours as needed for shortness of breath - Prednisone 40 mg daily - Continue home Symbicort - Given increased sputum production, add azithromycin 500 mg daily 3 - Pulse oximetry - Oxygen titrated to maintain saturation greater than 92% (3) Hypoxia Status: Acute Plan: See above management (4) Pleural effusion on right Status: Acute Plan: Likely due to malignancy - Hematology/oncology consult, appreciate recommendations - Consult interventional radiology to drain pleural effusion - Will follow up as outpatient for further chemotherapy and radiation - Manage COPD exacerbation as above - Oxygen therapy as above (5) Non-small cell carcinoma of right lung, stage 3 Status: Chronic Plan: Currently receiving chemotherapy and radiation - Hematogenous/oncology consulted, appreciate recommendations - will follow up for outpatient treatment - Pain control with methadone as below - Percocet 5 and 10 mg for pain 3-5 and 6-10, respectively - Tylenol 650 PRN pain 1-2 (6) HTN (hypertension) Status: Acute (7) Methadone maintenance therapy patient Status: Chronic Plan: Continue home methadone treatment 160 mg PO daily @ 0600 (8) FEN/PPX Status: Acute Plan: Fluids: Tolerating PO Elecs: Monitor and replete as needed Nutrition: Diet regular basic DVT: Lovenox 40 mg SQ daily dw Samantha Toro MD Feb 04, 2017 10:16
--- NOTE | 2017-02-04 14:52 | RADRPT ---
EXAM DATE/TIME: 02/04/2017 14:30 [facility] COMPARISON: No previous studies available for comparison. INDICATIONS : Post thoracentesis right lung. MEDICAL HISTORY : Lung cancer. Cardiovascular disease. Hypertension. Hepatitis C. Cervical SURGICAL HISTORY : None. ENCOUNTER: Initial ACUITY: 1 day PAIN SCORE: 0/10 LOCATION: Right Lung. FINDINGS: A single frontal expiratory view of the chest was performed. Consolidative changes persist in the le ft base. No evidence of pneumothorax. Mediastinal structures are in the midline. The cardio-mediastinal contours and bronchopulmonary markings are unremarkable for an expiratory exam . Osseous structures are intact. CONCLUSION: Negative for pneumothorax.. Iam Yu MD FACR on February 04, 2017 at 14:50 Board Certified Radiologist. This report was verified electronically.
--- NOTE | 2017-02-04 14:57 | RADRPT ---
EXAM DATE/TIME: 02/04/2017 14:08 [facility] COMPARISON: No previous studies available for comparison. INDICATIONS : Right pleural effusion. MEDICAL HISTORY : Gastroesophageal reflux disease. Congestive heart failure. Chronic obstructive pulmonary disease. Hyp ertension. Seizures. Lung cancer. Liver disease. Cervical cancer. Blood transfusion. SURGICAL HISTORY : D&C. Cervical conization. ENCOUNTER: Initial ACUITY: 1 day PAIN SCORE: 0/10 LOCATION: Right chest FLUID: Total volume of 700 cc of cloudy, red fluid was removed. Fluid was sent to lab for ordered studies. TECHNIQUE: 1. Ultrasound guidance for thoracentesis. 2. Thoracentesis. The risks, benefits, and alternatives to ultrasound guided thoracentesis were explained to the patien t in lay simple terms, including the risk of bleeding and infection. Written and verbal informed con sent was obtained. Appropriate area for thoracentesis was marked under ultrasound guidance with the patient in the uprig ht position. Overlying skin was prepped and draped in the usual sterile fashion and with local anest hetic, a dermatotomy was made with an 11 blade scalpel. A 6 [place] thoracentesis catheter was placed in the pleural space and fluid was removed. Catheter was then removed and a sterile dressing applie d. There were no immediate complications. The patient tolerated the procedure well and the left the ultrasound suite in stable condition. Chest radiograph is to be obtained. CONCLUSION: Uncomplicated ultrasound guided thoracentesis. Iam Yu MD FACR on February 04, 2017 at 14:56 Board Certified Radiologist. This report was verified electronically.
--- NOTE | 2017-02-04 16:52 | EKG ---
Date Performed: 02/03/2017 Time Performed: 13:41:04 PTAGE: 61 years EKG: Sinus rhythm BORDERLINE LEFT AXIS DEVIATION ST elevationin lead V3-indterminate whether this is due to Baseline w andering artifact verses injury pattern. Clinical corrolation is suggested. BORDERLINE ECG PREVIOUS TRACING : 12/02/2016 02.50 DOCTOR: Akshat Rangel Interpretating Date/Time 02/04/2017 16:51:20
[2017-02-04] MEDS: ENOXAPARIN SODIUM 40 MG/0.4 ML SYRINGE SQ SCH (16:55)
[2017-02-04] MEDS: AZITHROMYCIN 250 MG TAB PO SCH (16:55)
[2017-02-04 17:00] LABS: PLEURAL FLUID LYMPHS 11 %
[2017-02-04] MEDS: TEMAZEPAM 7.5 MG CAP PO PRN (20:45)
[2017-02-05] VITALS (8 sets, daily range): BP systolic 128–146; BP diastolic 66–80; PULSE 73–80; RESP 16–20; TEMP 97–98.3; O2SAT 94–97
[2017-02-05] MEDS: METHADONE HCL 10 MG/10 ML ORAL SOLUTION PO SCH (05:59)
[2017-02-05] MEDS: amLODIPine BESYLATE 5 MG TAB PO SCH (07:24)
[2017-02-05] MEDS: FAMOTIDINE 20 MG TAB PO SCH ×2 (07:24→20:13)
[2017-02-05] MEDS: ASPIRIN EC 81 MG TABEC PO SCH (07:24)
[2017-02-05] MEDS: METOPROLOL TARTRATE 25 MG TAB PO SCH ×2 (07:25→20:13)
[2017-02-05] MEDS: predniSONE 20 MG TAB PO SCH (07:25)
[2017-02-05] MEDS: SODIUM CHLORIDE 0.9% FLUSH 10 ML FLUSH IV FLUSH SCH ×2 (07:25→20:13)
[2017-02-05] MEDS: ONDANSETRON ODT 4 MG TAB PO SCH ×3 (07:25→17:23)
[2017-02-05] MEDS: BUDESONIDE-FORMOTEROL 160/4.5 MCG INHALER INH SCH ×2 (07:26→20:14)
[2017-02-05 08:10] LABS: AUTOMATED NEUTROPHIL # 12.6 TH/MM3 (1.8-7.7); BASOPHIL % 0.2 % (0.0-2.0); EOSINOPHIL # 0.1 TH/MM3 (0-0.4); EOSINOPHIL % 0.5 % (0.0-4.0); HEMO FLAGS DIFF FINAL; LYMPH % 4.7 % (9.0-44.0); LYMPHOCYTE # 0.7 TH/MM3 (1.0-4.8); MEAN CELL VOLUME 86.9 FL (80.0-100.0); MEAN CORPUSCULAR HEMOGLOBIN 28.1 PG (27.0-34.0); MEAN CORPUSCULAR HGB CONC 32.3 % (32.0-36.0); MONO % 8.1 % (0.0-8.0); NEUT % 86.5 % (16.0-70.0); PLATELET COUNT 422 TH/MM3 (150-450); RED BLOOD COUNT 3.68 MIL/MM3 (4.00-5.30); RED CELL DISTRIBUTION WIDTH 19.2 % (11.6-17.2); WHITE BLOOD COUNT 14.5 TH/MM3 (4.0-11.0)
[2017-02-05] MEDS: RESP: ALBUTEROL 2.5 MG/IPRATROPIUM 0.5 MG NEB (SCH) INH ×4 (08:32→21:33)
[2017-02-05 08:33] LABS: POTASSIUM 3.6 MEQ/L (3.5-5.1)
--- NOTE | 2017-02-05 12:38 | HHI.FPPN ---
Subjective Remarks Sitting up in bed, no distress. She is s/p day 1 after thoracentesis. She reports feeling much better since the thoracentesis. She reports, "I am 50% back to normal". No other complaints. (Parth Dominguez MD R2) Objective Vitals Vital Signs Date Time Temp Pulse Resp B/P Pulse Ox O2 Delivery O2 Flow Rate FiO2 02/05/17 08:33 97 Nasal Cannula 2.00 02/05/17 08:00 97.5 77 16 140/78 94 02/05/17 07:25 Nasal Cannula 3.00 02/05/17 06:37 20 02/05/17 04:00 98.3 76 18 144/76 94 02/05/17 00:00 98.1 75 18 146/80 94 02/04/17 20:00 Nasal Cannula 3.00 02/04/17 20:00 97.1 83 20 142/68 95 02/04/17 19:57 97 Nasal Cannula 2.50 02/04/17 15:25 83 20 122/75 96 02/04/17 15:10 98.4 78 20 124/69 93 I/O 02/04/17 02/04/17 02/04/17 02/05/17 02/05/17 02/05/17 07:00 15:00 23:00 07:00 15:00 23:00 Intake Total 240 ml 960 ml 720 ml 240 ml 0 ml Balance 240 ml 960 ml 720 ml 240 ml 0 ml Intake Oral 240 ml 960 ml 720 ml 240 ml IV Total 0 ml # Voids 3 4 1 2 # Bowel Movements 1 0 0 (Parth Dominguez MD R2) Result Diagram: 02/05/17 0442 02/05/17 0742 Imaging Last 72 hours Impressions Thoracentesis Ultrasound 02/04/17 0000 Signed Impressions: Service Date/Time: Saturday, February 04, 2017 14:08 - CONCLUSION: Uncomplicated ultrasound guided thoracentesis. Iam Yu MD FACR Chest X-Ray 02/04/17 0000 Signed Impressions: Service Date/Time: Saturday, February 04, 2017 14:30 - CONCLUSION: Negative for pneumothorax.. Iam Yu MD FACR Chest X-Ray 02/03/17 1319 Signed Impressions: Service Date/Time: January 13:20 - CONCLUSION: Some interval worsening in right base infiltrate and effusion Omar Arnold MD CT Angiography 02/03/17 0000 Signed Impressions: Service Date/Time: January 20:27 - CONCLUSION: 1. There is no evidence for PE for technique. 2. Large right pleural effusion and right lung base consolidation. 3. Bilateral parenchymal infiltrates and left lung base nodule not present previously. Vanna Ashford MD Objective Remarks GENERAL: in NAD, no resp distress. Nasal cannula in place. HEENT: NCAT, Clouding of left eye. R eye WNL. MMM. Poor dentition. NECK: Supple, no meningeal signs. CV: RRR, S1 S2. No murmurs CHEST/PULM: Today only expiratory wheezing, compared to yesterday when she had inspiratory wheezing. Still significant wheezing but improved from before. Less dullness to percussion compared to before after thoracentesis. ABD/GI: +BS, soft, nontender, nondistended EXT: 2+ DP pulses. No calf tenderness. No significant edema NEURO: Awake, alert. Normal muscle tone. Grossly WNL SKIN: No rashes, no jaundice. PSYCH: Mood and affect are appropriate. Speech fluent. Procedures Thoracentesis 02/04/17 (Parth Dominguez MD R2) A/P Assessment and Plan 61 year-old female with past medical history of stage III non-small cell lung cancer currently receiving chemotherapy and radiation, COPD, hypertension presenting with increasing dyspnea. Discharge Planning Pending stabilization of breathing symptoms (Parth Dominguez MD R2) Attending Attestation Patient seen and examined, discussed with resident team. I agree with assessment and management as documented and discussed with me. Pt reports breathing is improved. On exam, only exp wheeze, which is an improvement from insp/exp wheeze yesterday. Anticipate discharge in 1-3 days, once COPD exacerbation improves/resolves. (Samantha Florez MD) Problem List: (1) COPD exacerbation Status: Acute Plan: History and exam findings consistent with COPD exacerbation - Duo-nebs every 4 hours while awake - Albuterol neb every 2 hours as needed for shortness of breath - Prednisone 40 mg daily - Continue home Symbicort - Azithromycin 500 mg daily 3. Of note, her QT is normal on EKG. - Pulse oximetry - Oxygen titrated to maintain saturation greater than 92% (2) Pleural effusion on right Status: Acute Plan: Likely due to malignancy. S/p thoracentesis yesterday, feeling better. (3) Non-small cell carcinoma of right lung, stage 3 Status: Chronic Plan: Currently receiving chemotherapy and radiation. Per pt, next chemotherapy is due next week. - Pain control with methadone 160 mg daily continued from home - Percocet 5 and 10 mg for pain 3-5 and 6-10, respectively - Tylenol 650 PRN pain 1-2 (4) HTN (hypertension) Status: Chronic Plan: Continue home medications. Blood pressure is stable. (Parth Dominguez MD R2) Parth Dominguez MD R2 Feb 05, 2017 12:38 Samantha Florez MD Feb 05, 2017 19:32
[2017-02-05] MEDS: ENOXAPARIN SODIUM 40 MG/0.4 ML SYRINGE SQ SCH (17:23)
[2017-02-05] MEDS: AZITHROMYCIN 250 MG TAB PO SCH (17:23)
[2017-02-05] MEDS: TEMAZEPAM 15 MG CAP PO PRN (20:13)
[2017-02-06] VITALS (9 sets, daily range): BP systolic 129–170; BP diastolic 75–86; PULSE 72–82; RESP 18–22; TEMP 97.5–98; O2SAT 89–96
[2017-02-06] MEDS: METHADONE HCL 10 MG TAB PO SCH ×2 (05:44→07:00)
[2017-02-06] MEDS: RESP: ALBUTEROL 2.5 MG/IPRATROPIUM 0.5 MG NEB (SCH) INH ×4 (09:17→20:29)
[2017-02-06] MEDS: BUDESONIDE-FORMOTEROL 160/4.5 MCG INHALER INH SCH ×2 (09:42→20:39)
[2017-02-06] MEDS: METOPROLOL TARTRATE 25 MG TAB PO SCH ×2 (09:42→20:37)
[2017-02-06] MEDS: FAMOTIDINE 20 MG TAB PO SCH ×2 (09:42→20:36)
[2017-02-06] MEDS: predniSONE 20 MG TAB PO SCH (09:43)
[2017-02-06] MEDS: SODIUM CHLORIDE 0.9% FLUSH 10 ML FLUSH IV FLUSH SCH ×2 (09:43→20:38)
[2017-02-06] MEDS: ASPIRIN EC 81 MG TABEC PO SCH (09:43)
[2017-02-06] MEDS: ONDANSETRON ODT 4 MG TAB PO SCH ×3 (09:43→17:49)
[2017-02-06] MEDS: amLODIPine BESYLATE 5 MG TAB PO SCH (09:43)
--- NOTE | 2017-02-06 10:33 | HHI.FPPN ---
Subjective Remarks No acute events overnight. Feeling much better re: SOB and wants to go home. Still on O2 NC 2 L to maintain sats > 90. No CP since her thoracentesis. ( Derick Cai MD R1) Objective Vitals Vital Signs Date Time Temp Pulse Resp B/P Pulse Ox O2 Delivery O2 Flow Rate FiO2 02/06/17 09:20 93 Nasal Cannula 2.00 02/06/17 08:00 98.0 82 18 170/78 92 02/06/17 07:00 76 02/06/17 07:00 Nasal Cannula 2.00 02/06/17 04:00 97.9 75 20 153/77 93 02/06/17 00:00 97.9 76 20 144/86 93 02/05/17 21:33 97 Nasal Cannula 2.00 02/05/17 20:00 75 02/05/17 20:00 Nasal Cannula 2.00 02/05/17 20:00 97.4 74 20 132/71 94 02/05/17 16:00 98.3 80 19 128/80 94 02/05/17 13:08 2.00 02/05/17 12:00 97.0 73 19 134/66 94 I/O 02/05/17 02/05/17 02/05/17 02/06/17 02/06/17 02/06/17 07:00 15:00 23:00 07:00 15:00 23:00 Intake Total 240 ml 720 ml 240 ml Balance 240 ml 720 ml 240 ml Intake Oral 240 ml 720 ml 240 ml IV Total 0 ml # Voids 2 4 1 # Bowel Movements 0 2 1 (Derick Cai MD R1) Result Diagram: 02/05/17 0442 02/05/17 0742 Objective Remarks GENERAL: in NAD, no resp distress. Nasal cannula in place. O2 on room air 88% on eval. HEENT: NCAT, Clouding of left eye. R eye WNL. MMM. Poor dentition. CV: NRRR, S1 S2. No murmurs CHEST/PULM: Mild diffuse expiratory wheezing bilaterally. Speaking in full sentences without having to pause. EXT: 2+ DP pulses. No calf tenderness. No significant edema NEURO: Awake, alert. Normal muscle tone. Grossly WNL SKIN: No rashes, no jaundice. Procedures Thoracentesis 02/04/17 (Derick Cai MD R1) A/P Assessment and Plan 61 year-old female with past medical history of stage III non-small cell lung cancer currently receiving chemotherapy and radiation, COPD, hypertension presenting with increasing dyspnea. Discharge Planning Pending stabilization of breathing symptoms (Derick Cai MD R1) Attending Attestation Patient seen and examined, discussed with Dr Cai. I agree with assessment and management as documented and discussed with me. Pt reports breathing is doing better and she is feeling less winded. She is 88% on room air and requires 2LPM by nasal cannula to return to 92-93% during my exam. Pt reports that her sats are 92-93% on room air as an outpatient with oncology. Lungs with end exp wheeze which is an improvement from presentation. Anticipate discharge tomorrow or next day. (Samantha Florez MD) Problem List: (1) COPD exacerbation Status: Acute Plan: History and exam findings consistent with COPD exacerbation - Duo-nebs every 4 hours while awake - Albuterol neb every 2 hours as needed for shortness of breath - Prednisone 40 mg daily - Continue home Symbicort - Azithromycin 500 mg daily 3. Of note, her QT is normal on EKG. - Pulse oximetry - Oxygen titrated to maintain saturation greater than 92% (2) Pleural effusion on right Status: Resolved Plan: Likely due to malignancy. S/p thoracentesis 02/04/17, feeling better. (3) Non-small cell carcinoma of right lung, stage 3 Status: Chronic Plan: Currently receiving chemotherapy and radiation. Per pt, next chemotherapy is due next week. - Pain control with methadone 160 mg daily continued from home - Percocet 5 and 10 mg for pain 3-5 and 6-10, respectively - Tylenol 650 PRN pain 1-2 (4) HTN (hypertension) Status: Chronic Plan: Continue home medications. Blood pressure is stable dw Dr. Florez (Derick Cai MD R1) Problem Qualifiers (1) HTN (hypertension): Qualified Code: I10 - Essential hypertension Derick Cai MD R1 Feb 06, 2017 10:33 Samantha Florez MD Feb 06, 2017 20:40
[2017-02-06] MEDS: ENOXAPARIN SODIUM 40 MG/0.4 ML SYRINGE SQ SCH (17:49)
[2017-02-06] MEDS: TEMAZEPAM 15 MG CAP PO PRN (20:36)
[2017-02-07] MEDS ORDERED: METHADONE HCL 10 MG TAB PO SCH (06:00)
[2017-02-07] MEDS: amLODIPine BESYLATE 5 MG TAB PO SCH (07:58)
[2017-02-07] MEDS: ONDANSETRON ODT 4 MG TAB PO SCH ×2 (07:58→12:17)
[2017-02-07] MEDS: FAMOTIDINE 20 MG TAB PO SCH (07:58)
[2017-02-07] MEDS: predniSONE 20 MG TAB PO SCH (07:58)
[2017-02-07] MEDS: ASPIRIN EC 81 MG TABEC PO SCH (07:58)
[2017-02-07] MEDS: METOPROLOL TARTRATE 25 MG TAB PO SCH (07:59)
[2017-02-07] MEDS: SODIUM CHLORIDE 0.9% FLUSH 10 ML FLUSH IV FLUSH SCH (07:59)
[2017-02-07] MEDS: BUDESONIDE-FORMOTEROL 160/4.5 MCG INHALER INH SCH (07:59)
[2017-02-07 08:00] VITALS: BP 132/79; PULSE 68; RESP 20; TEMP 97.6; O2SAT 93
[2017-02-07] MEDS: RESP: ALBUTEROL 2.5 MG/IPRATROPIUM 0.5 MG NEB (SCH) INH ×3 (08:02→15:34)
--- NOTE | 2017-02-07 08:08 | HHI.DCPOC ---
Discharge Care Plan Diagnosis: (1) COPD (chronic obstructive pulmonary disease) (2) SOB (shortness of breath) (3) COPD exacerbation (4) Non-small cell carcinoma of right lung, stage 3 Goals to Promote Your Health * To prevent worsening of your condition and complications * To maintain your health at the optimal level Directions to Meet Your Goals Take your medications as prescribed Follow your dietary instruction Follow activity as directed Keep your appointments as scheduled Take your immunizations and boosters as scheduled If your symptoms worsen call your PCP, if no PCP go to Urgent Care Center or Emergency Room Smoking is Dangerous to Your Health. Avoid second hand smoke Call the 24-hour hour crisis hotline for domestic abuse at Parth Dominguez MD R2 Feb 07, 2017 08:08
--- NOTE | 2017-02-07 08:10 | HHI.FPPN ---
Subjective Remarks No acute events overnight. SOB improved even from yesterday. No CP. No abdominal pain. Feeling back to baseline and wants to go home. (Derick Cai MD R1) Objective Vitals Vital Signs Date Time Temp Pulse Resp B/P Pulse Ox O2 Delivery O2 Flow Rate FiO2 02/07/17 07:27 18 02/06/17 20:31 96 Nasal Cannula 2.00 02/06/17 20:00 Nasal Cannula 2.00 02/06/17 20:00 97.5 79 22 140/75 89 02/06/17 20:00 76 02/06/17 16:00 97.8 72 18 129/79 95 02/06/17 12:00 97.8 78 18 147/81 92 02/06/17 09:20 93 Nasal Cannula 2.00 I/O 02/06/17 02/06/17 02/06/17 02/07/17 02/07/17 02/07/17 07:00 15:00 23:00 07:00 15:00 23:00 Intake Total 240 ml 480 ml Balance 240 ml 480 ml Intake Oral 240 ml 480 ml # Voids 1 2 # Bowel Movements 1 1 (Derick Cai MD R1) Result Diagram: 02/05/17 0442 02/05/17 0742 Imaging Last Impressions Thoracentesis Ultrasound 02/04/17 0000 Signed Impressions: Service Date/Time: Saturday, February 04, 2017 14:08 - CONCLUSION: Uncomplicated ultrasound guided thoracentesis. Iam Yu MD FACR Chest X-Ray 02/04/17 Signed Impressions: Service Date/Time: Saturday, February 04, 2017 14:30 - CONCLUSION: Negative for pneumothorax.. Iam Yu MD FACR CT Angiography 02/03/17 0000 Signed Impressions: Service Date/Time: January 20:27 - CONCLUSION: 1. There is no evidence for PE for technique. 2. Large right pleural effusion and right lung base consolidation. 3. Bilateral parenchymal infiltrates and left lung base nodule not present previously. Vanna Ashford MD Objective Remarks GENERAL: in NAD, no resp distress. Nasal cannula in place. HEENT: NCAT, Clouding of left eye. R eye WNL. MMM. Poor dentition. CV: NRRR, S1 S2. No murmurs CHEST/PULM: Minimal end expiratory wheezing bilaterally at the bases. Speaking in full sentences without having to pause. EXT: No calf tenderness. No significant edema NEURO: Awake, alert. Normal muscle tone. Grossly WNL SKIN: No rashes, no jaundice. Procedures Thoracentesis 02/04/17 Medications and IVs Current Medications Medications (Trade) Dose Ordered Sig/Félix Route Start Time Stop Time Status Last Admin (Norvasc) 2.5 mg DAILY PO 02/04/17 09:00 02/07/17 07:58 (Ecotrin Ec) 81 mg DAILY PO 02/03/17 17:30 02/07/17 07:58 (Symbicort 160-4.5 Inh) 2 puff Q12HR INH 02/03/17 21:00 02/07/17 07:59 (Lopressor) 25 mg Q12HR PO 02/03/17 21:00 02/07/17 07:59 (Zofran Odt) 8 mg TID PO 02/04/17 09:00 02/07/17 07:58 (NS Flush) 2 ml UNSCH PRN IV FLUSH 02/03/17 17:30 (NS Flush) 2 ml BID IV FLUSH 02/03/17 21:00 02/07/17 07:59 (Lovenox Inj) 40 mg Q24H SQ 02/03/17 18:00 02/06/17 17:49 (Tylenol) 650 mg Q6H PRN PO 02/03/17 17:30 (Cicero 5-325 Mg) 1 tab Q4H PRN PO 02/03/17 17:30 (Cicero 10-325 Mg) 1 tab Q4H PRN PO 02/03/17 17:30 (Morphine Inj) 4 mg Q3H PRN IV 02/03/17 17:30 (Deltasone) 40 mg DAILY PO 02/03/17 17:30 02/07/17 07:58 (Pepcid) 20 mg BID PO 02/03/17 21:00 02/07/17 07:58 (Restoril) 15 mg HS PRN PO 02/05/17 11:00 02/06/17 20:36 (Dolophine) 160 mg DAILY@0600 PO 02/07/17 06:00 02/07/17 06:05 (Derick Cai MD R1) A/P Assessment and Plan 61 year-old female with past medical history of stage III non-small cell lung cancer currently receiving chemotherapy and radiation, COPD, hypertension presenting with: (Derick Cai MD R1) Attending Attestation Patient seen and examined, discussed with resident team. I agree with assessment and management as documented and discussed with me. Pt feels breathing is much improved. She still requires 2LPM oxygen supplementation, but reports feeling less winded with exertion. She feels ready to go home, once home oxygen is arranged. She has appt next week with her commercial green building designer, Dr Calderón. (Samantha Florez MD) Problem List: (1) COPD exacerbation Status: Resolved Plan: History and exam findings consistent with COPD exacerbation - Duo-nebs every 4 hours while awake - Albuterol neb every 2 hours as needed for shortness of breath - Prednisone 40 mg daily x5 - Continue home Symbicort - Azithromycin 500 mg daily 3. Of note, her QT is normal on EKG. - Home O2 walk test indicating oxygen requirement. Will prescribe for discharge (2) Pleural effusion on right Status: Resolved Plan: Likely due to malignancy. S/p thoracentesis 02/04/17, feeling better. (3) Non-small cell carcinoma of right lung, stage 3 Status: Chronic Plan: Currently receiving chemotherapy and radiation. Per pt, next chemotherapy is due next week. - Pain control with methadone 160 mg daily continued from home - Percocet 5 and 10 mg for pain 3-5 and 6-10, respectively - Tylenol 650 PRN pain 1-2 (4) HTN (hypertension) Status: Chronic Plan: Continue home medications. Blood pressure is stable dw Dr. Florez (Derick Cai MD R1) Problem Qualifiers (1) HTN (hypertension): Qualified Code: I10 - Essential hypertension Derick Cai MD R1 Feb 07, 2017 08:10 Samantha Florez MD Feb 07, 2017 12:19
[2017-02-07 08:11] VITALS: O2SAT 87
[2017-02-07] MEDS ORDERED: OXYGENTANK NAS.CANULA (08:16)
--- NOTE | 2017-02-07 08:25 | HHI.DS ---
Discharge Summary Admission Date Feb 03, 2017 at 16:31 Discharge Date: Feb 07, 2017 Admitting Diagnosis hypoxia; R pleural effusion; COPD exacerbation (1) COPD exacerbation Diagnosis: Principal Plan: History and exam findings consistent with COPD exacerbation - Duo-nebs every 4 hours while awake - Albuterol neb every 2 hours as needed for shortness of breath - Prednisone 40 mg daily x5 - Continue home Symbicort - Azithromycin 500 mg daily 3. Of note, her QT is normal on EKG. - Home O2 walk test indicating oxygen requirement. Will prescribe for discharge (2) Pleural effusion on right Diagnosis: Principal Plan: Likely due to malignancy. S/p thoracentesis 02/04/17, feeling better. (3) Non-small cell carcinoma of right lung, stage 3 Diagnosis: Principal Plan: Currently receiving chemotherapy and radiation. Per pt, next chemotherapy is due next week. - Pain control with methadone 160 mg daily continued from home - Percocet 5 and 10 mg for pain 3-5 and 6-10, respectively - Tylenol 650 PRN pain 1-2 (4) HTN (hypertension) Diagnosis: Secondary Plan: Continue home medications. Blood pressure is stable dw Dr. Florez Consultants None Procedures Thoracentesis 02/04/17 Brief History 61 yo female with PMH of stage III NSCLC currently receiving chemo and radiation , COPD, and HTN presenting with SOB starting yesterday malaise. Start was sudden but not intense, gradually worsened over evening. Present on waking up, didn't get better, so she thought she should come in to be evaluated. No fevers or chills. No sick contacts. Productive cough new since 5 days ago. Little bit of wheezing for that time as well. Lots of nausea, normal for her. No history of DVT/PE. CBC/BMP: 02/05/17 0442 02/05/17 0742 Significant Findings Laboratory Tests Test 02/04/17 02/05/17 02/05/17 14:35 04:42 07:42 Pleural Fluid WBC 4372 /MM3 (0-10) Pleural Fluid RBC 13111 /MM3 (0-0) White Blood Count 14.5 TH/MM3 (4.0-11.0) Red Blood Count 3.68 MIL/MM3 (4.00-5.30) Hemoglobin 10.3 GM/DL (11.6-15.3) Hematocrit 32.0 % (35.0-46.0) Red Cell Distribution Width 19.2 % (11.6-17.2) Neutrophils (%) (Auto) 86.5 % (16.0-70.0) Lymphocytes (%) (Auto) 4.7 % (9.0-44.0) Monocytes (%) (Auto) 8.1 % (0.0-8.0) Neutrophils # (Auto) 12.6 TH/MM3 (1.8-7.7) Lymphocytes # (Auto) 0.7 TH/MM3 (1.0-4.8) Monocytes # (Auto) 1.2 TH/MM3 (0-0.9) Chloride Level 97 MEQ/L (98-107) Carbon Dioxide Level 33.0 MEQ/L (21.0-32.0) Estimat Glomerular Filtration 83 ML/MIN (>89) Rate PE at Discharge GENERAL: in NAD, no resp distress. Nasal cannula in place. HEENT: NCAT, Clouding of left eye. R eye WNL. MMM. Poor dentition. CV: NRRR, S1 S2. No murmurs CHEST/PULM: Minimal end expiratory wheezing bilaterally at the bases. Speaking in full sentences without having to pause. EXT: No calf tenderness. No significant edema NEURO: Awake, alert. Normal muscle tone. Grossly WNL SKIN: No rashes, no jaundice. Hospital Course 61 yo female with PMH of stage III NSCLC currently receiving chemo and radiation , COPD, and HTN presented with SOB and productive cough. CTA to rule out PE was negative at admission. ECHO was performed and showed EF of 55-60%. She was found to have worsening malignant pleural effusion from her lung cancer, and also determined to have COPD exacerbation. Thoracentesis was performed with significant improvement in symptoms. She was treated with DuoNeb treatments, a five day course of prednisone, continued her home Symbicort high dose, supplemental oxygen, and Azithromycin. She is back to her baseline by discharge. She requires O2 therapy to maintain O2 saturation above 88% while walking, and she was sent home with supplemental oxygen to be used at 1L continuously throughout the day. She was referred to a fiberglass pipe covering supervisor due to worsening COPD. She is to follow up with oncology for continued treatment of her lung cancer. She will also need to follow up with her primary care physician. Pt Condition on Discharge: Stable Discharge Disposition: Discharge Home Discharge Instructions DIET: Follow Instructions for: As Tolerated, No Restrictions Speech Therapy-Diet Recommends: Regular Activities you can perform: Regular-No Restrictions Follow up Referrals: PCP Follow-up - 1 Week Pulmonology - 1 Week New Medications: Oxygen tank (Oxygen tank) 1 Ea Tank 2 LITER DIANE.CANULA CONTINUOUS Oxygen Concentrator Portable Gaseous 2 L/min via Nasal Cannula Continuous For 99 months HYPOXEMIA PREVENTION #1 CYLINDER Continued Medications: Albuterol 18 GM Inh (Ventolin Hfa 18 GM Inh) 90 Mcg/Act Aer 1 PUFF INH Q4H PRN SHORTNESS OF BREATH #1 Ref 3 INHALER Amlodipine (Norvasc) 5 Mg Tab 2.5 MG PO DAILY Blood Pressure Management #[address] (Aspirin EC) 81 Mg Tabdr 81 MG PO DAILY Blood Clot Prevention #90 Ref 0 TAB Budesonide-Formoterol Inh (Symbicort Inh) 160-4.5 Mcg/Act Aero 2 PUFF INH Q12HR Breathing Treatment #1 Ref 3 INHALER Methadone Intensol Liq (Methadose Liq) 10 Mg/Ml Conc 160 MG PO DAILY Ref 0 ML Metoprolol Tartrate (Metoprolol Tartrate) 25 Mg Tab 25 MG PO Q12HR #60 TAB Ondansetron (Ondansetron) 8 Mg Tab 8 MG PO TID Nausea/Vomiting #30 Ref 0 TAB Temazepam (Restoril) 7.5 Mg Cap 7.5 MG PO HS PRN INSOMNIA #30 Ref 0 CAP Discontinued Medications: Oxygen tank (Oxygen tank) 1 Ea Tank 2 LITER DIANE.CANULA CONTINUOUS Oxygen Concentrator Portable Gaseous 2 L/min via Nasal Cannula Continuous For 99 months PRN HYPOXEMIA PREVENTION #1 CYLINDER Parth Dominguez MD R2 Feb 07, 2017 08:25
[2017-02-07 12:00] VITALS: BP 136/61; PULSE 65; RESP 18; TEMP 98.2; O2SAT 95
== END 2017-02-07 16:17 | disposition home or self-care (01) | DRG 191 ==
LOC: NEPE 12:51 → NEDA 16:31 → N04A 21:41
PROVIDERS: ADMIT Family Medicine; ATTEND Family Medicine
PROC: 0W993ZX Drainage of Right Pleural Cavity, Percutaneous Approach, Diagnostic (ICD-10-PCS; principal; 2017-02-04)
DX: J44.1 Chronic obstructive pulmonary disease with (acute) exacerbation (principal); C34.91 Malignant neoplasm of unspecified part of right bronchus or lung; J91.0 Malignant pleural effusion; R09.02 Hypoxemia; I10 Essential (primary) hypertension; Z79.899 Other long term (current) drug therapy; Z92.3 Personal history of irradiation; Z86.73 Personal history of transient ischemic attack (TIA), and cerebral infarction without residual deficits; Z87.891 Personal history of nicotine dependence
CPT/HCPCS: 32555; 36591; 71010; 71275; 80048; 80053; 81001; 83615; 83880; 84157; 85025; 85379; 85610; 85730; 87804; 89051; 93005; 94150; 94620; 94640; 96374; 96375; C1729; J1642; J1650; J2405; J2930; J7512; Q9967

== ENCOUNTER 2017-03-03 14:58 | Inpatient (IN) | payer MEDICAID ==
[~2017-03-03] VITALS: Ht 160 cm; Wt 52.3 kg
[2017-03-03] VITALS (8 sets, daily range): BP systolic 100–128; BP diastolic 56–79; PULSE 81–89; RESP 18–20; TEMP 96.2–99.4; O2SAT 87–100
[2017-03-03] MEDS ORDERED: methylPREDNISolone SOD SUCC 125 MG/2 ML VIAL IVP ONE (15:30)
--- NOTE | 2017-03-03 15:38 | PD ---
HPI Chief Complaint: Respiratory Symptoms Time Seen by Provider: 15:07 Travel History International Travel<30 days: No Contact w/Intl Traveler<30days: No Traveled to known affect area: No History of Present Illness HPI 61-year-old female complains of coughing congestion fever shortness of breath. Patient states that she has history of non-small cell lung cancer with a large right hilar mass which extended to the infrahilar region causes collapse of the right lower lobe. Patient completed radiation therapy and chemotherapy. Patient was seen by Dr. Braxton , oncologist, and advised to started back on chemotherapy. also has history of paroxysmal atrial fibrillation, COPD, anemia due to chemotherapy and radiation therapy, seizure, hepatitis and hypertension. 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 Since states that she has productive cough the past several days and had low-grade fever today. Patient was seen by Dr. Vasquez, was found to be hypoxic and had low- grade fever and referred to the ED for evaluation. PFSH Past Medical History Hx Anticoagulant Therapy: Yes (LOW DOSE ASPIRIN) Arthritis: Yes Asthma: No Autoimmune Disease: No Anxiety: Yes Depression: No Heart Rhythm Problems: Yes Cancer: Yes (CERVICAL, LUNG) Cardiovascular Problems: Yes (htn) High Cholesterol: No Chemotherapy: Yes (CURRENT FOR LUNG) Congestive Heart Failure: Yes COPD: Yes Cerebrovascular Accident: No Coronary Artery Disease: No Diabetes: No Diminished Hearing: No Endocrine: No Gastrointestinal Disorders: Yes (vomitting) GERD: Yes Genitourinary: Yes Hypertension: Yes Immune Disorder: No Implanted Vascular Access Dvce: Yes Musculoskeletal: Yes Neurologic: No Psychiatric: No Respiratory: Yes (COPD) Immunizations Current: Yes Seizures: Yes (in past drug related) Sickle Cell Disease: No PNEUMOCCOCAL Vaccine (Year): 2 Menopausal: Yes : 3 Para: 2 Miscarriage: 1 Dilation and Curettage (D&C): Yes Past Surgical History Eye Surgery: Yes (CATARAC AND RETINAL SURGERY IN THE LEFT EYE) Gynecologic Surgery: Yes (CERVICAL CONE SURGERY FOR CANCER) Other Surgery: Yes Family History Family Myocardial Infarction: Yes (SISTER MASSIVE [place]) Social History Alcohol Use: No Tobacco Use: No (nicotine patch) Substance Use: No Allergies-Medications (Allergen,Severity, Reaction): Coded Allergies: Sulfa (Verified Allergy, Severe, HIVES, 02/03/17) Toradol (Verified Allergy, Mild, HIVES, 02/03/17) Reported Meds & Prescriptions Reported Meds & Active Scripts Active Oxygen tank (Oxygen) 1 Ea Tank 2 Liter DIANE.CANULA CONTINUOUS Oxygen Concentrator Portable Gaseous 2 L/min via Nasal Cannula Continuous For 99 months Metoprolol Tartrate 25 Mg Tab 25 Mg PO Q12HR Aspirin EC (Aspirin) 81 Mg Tabdr 81 Mg PO DAILY Symbicort Inh (Budesonide/Formoterol Fumarate) 160-4.5 Mcg/Act Aero 2 Puff INH Q12HR Norvasc (Amlodipine Besylate) 5 Mg Tab 2.5 Mg PO DAILY Ventolin Hfa 18 GM Inh (Albuterol Sulfate) 90 Mcg/Act Aer 1 Puff INH Q4H PRN Restoril (Temazepam) 7.5 Mg Cap 7.5 Mg PO HS PRN Reported Methadose Liq (Methadone HCl) 10 Mg/Ml Conc 160 Mg PO DAILY Ondansetron (Ondansetron HCl) 8 Mg Tab 8 Mg PO TID Review of Systems General / Constitutional: Positive: Fever Eyes: No: Visual changes HENT: No: Headaches Cardiovascular: No: Chest Pain or Discomfort Respiratory: Positive: Cough, Shortness of Breath Gastrointestinal: No: Abdominal Pain Genitourinary: No: Dysuria Musculoskeletal: No: Pain Skin: No Rash Neurologic: No: Weakness Psychiatric: No: Depression Endocrine: No: Polydipsia Hematologic/Lymphatic: No: Easy Bruising Physical Exam Narrative GENERAL: Well-nourished, well-developed patient. SKIN: Focused skin assessment warm/dry. HEAD: Normocephalic. EYES: No scleral icterus. No injection or drainage. NECK: Supple, trachea midline. No JVD or lymphadenopathy. CARDIOVASCULAR: Regular rate and rhythm without murmurs, gallops, or rubs. RESPIRATORY: Breath sounds equal bilaterally. No accessory muscle use. Patient has moderate expiratory wheezes bilaterally. Few rhonchi at the bases. GASTROINTESTINAL: Abdomen soft, non-tender, nondistended. MUSCULOSKELETAL: No cyanosis, or edema. BACK: Nontender without obvious deformity. No CVA tenderness. Neurologic exam normal. Data Data Last Documented VS Vital Signs Date Time Temp Pulse Resp B/P Pulse Ox O2 Delivery O2 Flow Rate FiO2 03/03/17 16:51 92 Nasal Cannula 4 03/03/17 15:17 99.0 83 20 119/66 Orders Lactic Acid (03/03/17 15:25) Electrocardiogram (03/03/17:) Complete Blood Count With Diff (03/03/17:) Comprehensive Metabolic Panel (03/03/17) Creatine Kinase (Cpk) (03/03/17:) Troponin I (03/03/17) B-Type Natriuretic Peptide (03/03/17:) Prothrombin Time / Inr (Pt) (03/03/17:) Act Partial Throm Time (Ptt) (03/03/17:) Blood Culture (03/03/17) Urinalysis - C+S If Indicated (03/03/17) Influenzae A/B Antigen (03/03/17) Chest, Single Ap (03/03/17:) Iv Access Insert/Monitor (03/03/17) Ecg Monitoring (03/03/17:) Oximetry (03/03/17:) Methylprednisolone So Succ Inj (Solumedr (03/03/17 15:30) Albuterol-Ipratropium Neb (Duoneb Neb) (03/03/17 15:30) Arterial Blood Gas (Abg) (03/03/17 ) CKMB (03/03/17 15:30) CKMB% (03/03/17 15:30) Labs Laboratory Tests Test 03/03/17 03/03/17 15:30 16:00 White Blood Count 4.2 TH/MM3 Red Blood Count 4.12 MIL/MM3 Hemoglobin 11.6 GM/DL Hematocrit 33.4 % Mean Corpuscular Volume 80.9 FL Mean Corpuscular Hemoglobin 28.1 PG Mean Corpuscular Hemoglobin 34.7 % Concent Red Cell Distribution Width 18.1 % Platelet Count 343 TH/MM3 Mean Platelet Volume 6.8 FL Neutrophils (%) (Auto) 56.0 % Lymphocytes (%) (Auto) 11.7 % Monocytes (%) (Auto) 30.6 % Eosinophils (%) (Auto) 0.8 % Basophils (%) (Auto) 0.9 % Neutrophils # (Auto) 2.4 TH/MM3 Lymphocytes # (Auto) 0.5 TH/MM3 Monocytes # (Auto) 1.3 TH/MM3 Eosinophils # (Auto) 0.0 TH/MM3 Basophils # (Auto) 0.0 TH/MM3 CBC Comment DIFF FINAL Differential Comment Prothrombin Time 11.9 SEC Prothromb Time International 1.1 RATIO Ratio Activated Partial 27.5 SEC Thromboplast Time Sodium Level 133 MEQ/L Potassium Level 3.8 MEQ/L Chloride Level 91 MEQ/L Carbon Dioxide Level 35.7 MEQ/L Anion Gap 6 MEQ/L Blood Urea Nitrogen 5 MG/DL Creatinine 0.68 MG/DL Estimat Glomerular Filtration 88 ML/MIN Rate Random Glucose 68 MG/DL Lactic Acid Level 0.9 mmol/L Calcium Level 8.6 MG/DL Total Bilirubin 0.3 MG/DL Aspartate Amino Transf 28 U/L (AST/SGOT) Alanine Aminotransferase 15 U/L (ALT/SGPT) Alkaline Phosphatase 76 U/L Total Creatine Kinase 217 U/L Creatine Kinase MB 3.7 NG/ML Creatine Kinase MB % 1.7 % Troponin I LESS THAN 0.02 NG/ML B-Type Natriuretic Peptide 122 PG/ML Total Protein 7.8 GM/DL Albumin 2.4 GM/DL Blood Gas Puncture Site RT RADIAL Blood Gas Patient Temperature 98.6 Blood Gas HCO3 33 mmol/L Blood Gas Base Excess 8.2 mmol/L Blood Gas Oxygen Saturation 95 % Arterial Blood pH 7.41 Arterial Blood Partial 53 mmHg Pressure CO2 Arterial Blood Partial 82 mmHG Pressure O2 Arterial Blood Oxygen Content 13.9 Vol % Arterial Blood 2.0 % Carboxyhemoglobin Arterial Blood Methemoglobin 0.1 % Blood Gas Hemoglobin 10.4 G/DL Oxygen Delivery Device NASAL CANNULA Blood Gas Liter Flow 3 L/M MDM Medical Decision Making Medical Screen Exam Complete: Yes Emergency Medical Condition: Yes Interpretation(s) Last Impressions Chest X-Ray 03/03/17 1526 Signed Impressions: Service Date/Time: February 15:37 - CONCLUSION: Worsening infiltrate on the right. Omar Venegas MD 1720 p.m. CBC WBC 4.2. 30 monocytes. Sodium 133. Chloride 91. Bicarbonate 35.7. Lactic acid 0.9. Cardiac enzymes are normal. 1720 p.m. ABG on 3 L make an cannula, pH 7.41. PCO2 53. PO2 82. Differential Diagnosis Differential diagnosis including viral syndrome, bronchitis, pneumonia, acute exacerbation COPD, PE, pneumothorax. Narrative Course 61-year-old female with coughing fever shortness of breath. History of lung CA. Patient's on chemotherapy. Normal saline solution 100 cc an hour. Cefepime 1 g IV. Zithromax 500 mg IV. Diagnosis Primary Impression: Pneumonia Qualified Code: J18.9 - Pneumonia due to infectious organism, unspecified laterality, unspecified part of lung Additional Impressions: Hypoxemia COPD with acute exacerbation Lung cancer Qualified Code: C34.90 - Malignant neoplasm of lung, unspecified laterality, unspecified part of lung Admitting Information Admitting Physician Requests: Admit Nasir Soares MD March 03, 2017 15:38
[2017-03-03 15:49] LABS: AUTOMATED NEUTROPHIL # 2.4 TH/MM3 (1.8-7.7); BASOPHIL % 0.9 % (0.0-2.0); EOSINOPHIL % 0.8 % (0.0-4.0); HEMATOCRIT 33.4 % (35.0-46.0); HEMO FLAGS DIFF FINAL; LYMPH % 11.7 % (9.0-44.0); LYMPHOCYTE # 0.5 TH/MM3 (1.0-4.8); MEAN CELL VOLUME 80.9 FL (80.0-100.0); MEAN CORPUSCULAR HEMOGLOBIN 28.1 PG (27.0-34.0); MEAN CORPUSCULAR HGB CONC 34.7 % (32.0-36.0); MONO % 30.6 % (0.0-8.0); PLATELET COUNT 343 TH/MM3 (150-450); RED BLOOD COUNT 4.12 MIL/MM3 (4.00-5.30); RED CELL DISTRIBUTION WIDTH 18.1 % (11.6-17.2); WHITE BLOOD COUNT 4.2 TH/MM3 (4.0-11.0)
[2017-03-03] MEDS: RESP: ALBUTEROL 2.5 MG/IPRATROPIUM 0.5 MG NEB (SCH) INH ×2 (15:50→15:51)
[2017-03-03 15:57] LABS: APTT (PATIENT) 27.5 SEC (24.3-30.1); INTERNATIONAL NORMALIZED RATIO 1.1 RATIO; PROTHROMBIN TIME - PATIENT 11.9 SEC (9.8-11.6)
[2017-03-03 16:02] LABS: ANION GAP 6 MEQ/L (5-15); AST (GOT) 28 U/L (15-37); BICARBONATE 35.7 MEQ/L (21.0-32.0); BLOOD UREA NITROGEN 5 MG/DL (7-18); CHLORIDE 91 MEQ/L (98-107); GLOMERULAR FILTRATION RATE 88 ML/MIN (>89); POTASSIUM 3.8 MEQ/L (3.5-5.1); SODIUM (NA) 133 MEQ/L (136-145)
[2017-03-03 16:07] LABS: ALKALINE PHOSPHATASE 76 U/L (45-117); ALT (GPT) 15 U/L (10-53); CREATINE KINASE 217 U/L (26-192); TOTAL BILIRUBIN ADULT 0.3 MG/DL (0.2-1.0)
--- NOTE | 2017-03-03 16:13 | RADRPT ---
EXAM DATE/TIME: 03/03/2017 15:37 [facility] COMPARISON: No previous studies available for comparison. INDICATIONS : Shortness of breath for 4 months. MEDICAL HISTORY : Hypertension. Congestive heart failure. Carcinoma, lung. Hepatitis C. GERD. Cervical cancer. COPD . Seizures. SURGICAL HISTORY : None. ENCOUNTER: Initial ACUITY: 4 - 6 months PAIN SCORE: 0/10 LOCATION: Bilateral chest FINDINGS: There is right lung infiltrate, worse at the base and new in the mid lung. There is associated volume loss. A small right pleural effusion is present. Left lung remains clear. No pneumothorax. Heart size stable, within normal limits. Right subclavian [id number] catheter with tip in the superior vena cava again noted. CONCLUSION: Worsening infiltrate on the right. Omar Venegas MD on March 03, 2017 at 16:10 Board Certified Radiologist. This report was verified electronically.
[2017-03-03 16:14] LABS: BLOOD GAS BASE EXCESS 8.2 mmol/L (-2-2); BLOOD GAS HCO3 33 mmol/L (22-26); BLOOD GAS METHEMOGLOBIN 0.1 % (0-2); BLOOD GAS O2 HGB SATURATION 95 % (90-100); BLOOD GAS OXYGEN CONTENT 13.9 Vol % (12.0-20.0); BLOOD GAS PCO2 53 mmHg (38-42); BLOOD GAS PO2 82 mmHG (61-120); BLOOD GAS TOTAL HGB 10.4 G/DL (12.0-16.0); CRITICAL VALUE YES; TEMP CORR TO 98.6
[2017-03-03 16:15] LABS: DRAW SITE RT RADIAL; LITER FLOW 3 L/M; NUMBER OF ARTERIAL PUNCTURES 1; OXYGEN DEVICE NASAL CANNULA; STAT YES; ULNAR PULSE PRESENT
[2017-03-03 16:19] LABS: CKMB 3.7 NG/ML (0.5-3.6)
--- NOTE | 2017-03-03 17:59 | HHI.HP ---
[facility] No Primary Care Physician Admission Diagnosis pneumonia. Hypoxemia. Acute exacerbation COPD Diagnoses: Chief Complaint: cough, shortness of breath, confusion Travel History International Travel<30 Days: No Contact w/Intl Traveler <30 Da: No Traveled to Known Affected Are: No History of Present Illness 61-year-old female with history of non-small cell lung cancer on chemo/radiation , COPD on home oxygen, hypertension, atrial fibrillation on aspirin, CHF, hepatitis C, presents with the past several days of cough, shortness of breath, and fever with confusion today. The patient is not the best historian, family at bedside assists with the history. The patient reports she was at her radiation oncologist's office today and Dr. Vasquez noticed her to be more confused and hypoxic, recommended she present to the ER. The patient reports over the past several days has been experiencing productive cough, with shortness of breath, dyspnea on exertion, wheezing, and subjective fevers at home. She also reports chest pain located at the mid sternal area with radiation to the mid back. She states this chest pain is new for her today. Her chest pain is alleviated by leaning forward and worsened by coughing and deep inspiration. She has also been experiencing significant nausea, vomiting, and indigestion. She has no other medical complaints including no diarrhea/ constipation or urinary complaints. Her medical oncologist is Dr. Braxton. Her last chemotherapy session was 2 weeks ago and she is scheduled for another round next week. The patient reports she only takes aspirin for her atrial fibrillation as she could not tolerate Coumadin. She also reports being on Methadone 170mg daily for her chronic pain. 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5 Mg Cap 7.5 Mg PO HS PRN Methadose Liq (Methadone HCl) 10 Mg/Ml Conc 160 Mg PO DAILY Ondansetron (Ondansetron HCl) 8 Mg Tab 8 Mg PO TID Allergies: Coded Allergies: Sulfa (Verified Allergy, Severe, HIVES, 02/03/17) Toradol (Verified Allergy, Mild, HIVES, 02/03/17) Active Ordered Medications Current Medications Medications (Trade) Dose Ordered Sig/Félix Route Start Time Stop Time Status Last Admin Cefepime HCl 2000 mg/Sodium Chloride 100 ml @ 200 mls/hr Q8H IV 03/03/17 18:15 UNV (Zithromax Inj/ NS 250 ml Inj) 250 ml @ 250 mls/hr Q24H IV 03/03/17 20:00 (SoluMEDROL INJ) 40 mg Q6HR IV PUSH 03/04/17 00:00 Family History Family history significant for heart disease Brother with lung cancer, Social History Prior tobacco use, quit Denies any alcohol use Denies any illicit drug use Physical Exam Vital Signs Vital Signs Date Time Temp Pulse Resp B/P Pulse Ox O2 Delivery O2 Flow Rate FiO2 03/03/17 16:51 92 Nasal Cannula 4 03/03/17 15:30 94 Nasal Cannula 3.00 03/03/17 15:17 99.0 83 20 119/66 100 03/03/17 15:01 99.4 89 20 128/79 87 3 Physical Exam GENERAL: Well-nourished, well-developed female patient, in NAD. SKIN: No rashes, ecchymoses or lesions. Cool and dry. HEAD: Atraumatic. Normocephalic. No temporal or scalp tenderness. EYES: Pupils equal round and reactive. Extraocular motions intact. No scleral icterus. No injection or drainage. ENT: Nose without bleeding, purulent drainage or septal hematoma. Airway patent. NECK: Trachea midline. No JVD or lymphadenopathy. Supple, nontender, no meningeal signs. CARDIOVASCULAR: Regular rate and rhythm without murmurs, gallops, or rubs. RESPIRATORY: No accessory muscle use. Diffuse wheezing throughout all lung florez with crackles at right base. GASTROINTESTINAL: Abdomen soft, non-tender, nondistended. No hepato-splenomegaly , or palpable masses. MUSCULOSKELETAL: Extremities without clubbing, cyanosis, or edema. No joint tenderness, effusion, or edema noted. No calf tenderness. NEUROLOGICAL: Awake and alert. Cranial nerves II through XII intact. Motor and sensory grossly within normal limits. Normal speech. Laboratory Laboratory Tests Test 03/03/17 03/03/17 15:30 16:00 White Blood Count 4.2 Red Blood Count 4.12 Hemoglobin 11.6 Hematocrit 33.4 Mean Corpuscular Volume 80.9 Mean Corpuscular Hemoglobin 28.1 Mean Corpuscular Hemoglobin 34.7 Concent Red Cell Distribution Width 18.1 Platelet Count 343 Mean Platelet Volume 6.8 Neutrophils (%) (Auto) 56.0 Lymphocytes (%) (Auto) 11.7 Monocytes (%) (Auto) 30.6 Eosinophils (%) (Auto) 0.8 Basophils (%) (Auto) 0.9 Neutrophils # (Auto) 2.4 Lymphocytes # (Auto) 0.5 Monocytes # (Auto) 1.3 Eosinophils # (Auto) 0.0 Basophils # (Auto) 0.0 CBC Comment DIFF FINAL Differential Comment Prothrombin Time 11.9 Prothromb Time International 1.1 Ratio Activated Partial 27.5 Thromboplast Time Sodium Level 133 Potassium Level 3.8 Chloride Level 91 Carbon Dioxide Level 35.7 Anion Gap 6 Blood Urea Nitrogen 5 Creatinine 0.68 Estimat Glomerular Filtration 88 Rate Random Glucose 68 Lactic Acid Level 0.9 Calcium Level 8.6 Total Bilirubin 0.3 Aspartate Amino Transf 28 (AST/SGOT) Alanine Aminotransferase 15 (ALT/SGPT) Alkaline Phosphatase 76 Total Creatine Kinase 217 Creatine Kinase MB 3.7 Creatine Kinase MB % 1.7 Troponin I LESS THAN 0.02 B-Type Natriuretic Peptide 122 Total Protein 7.8 Albumin 2.4 Blood Gas Puncture Site RT RADIAL Blood Gas Patient Temperature 98.6 Blood Gas HCO3 33 Blood Gas Base Excess 8.2 Blood Gas Oxygen Saturation 95 Arterial Blood pH 7.41 Arterial Blood Partial 53 Pressure CO2 Arterial Blood Partial 82 Pressure O2 Arterial Blood Oxygen Content 13.9 Arterial Blood 2.0 Carboxyhemoglobin Arterial Blood Methemoglobin 0.1 Blood Gas Hemoglobin 10.4 Oxygen Delivery Device NASAL CANNULA Blood Gas Liter Flow 3 Date/Time Procedure Status Source Growth 03/03/17 15:35 Influenza Types A,B Antigen ([place]) - Final Complete Nasal Washing NEGATIVE FOR FLU A AND B ANTIGEN.... 03/03/17 15:30 Aerobic Blood Culture Received Blood Peripheral Pending 03/03/17 15:30 Anaerobic Blood Culture Received Blood Peripheral Pending Result Diagram: 03/03/17 1530 03/03/17 1530 Imaging Last Impressions Chest X-Ray 03/03/17 1526 Signed Impressions: Service Date/Time: , March 03, 2017 15:37 - CONCLUSION: Worsening infiltrate on the right. Omar Venegas MD Assessment and Plan Assessment and Plan 61-year-old female with history of non-small cell lung cancer on chemo/radiation , COPD on home oxygen, hypertension, atrial fibrillation on aspirin, CHF, hepatitis C, presents with the past several days of cough, shortness of breath, and fever with confusion today. Acute on Chronic Respiratory Failure: O2 sat 87% on 3L NC upon arrival. Suspect multifactorial with COPD exacerbation and pneumonia, see treatment below. Continue O2 to keep O2 sat >92%. Incentive spirometry. Healthcare Associated Pneumonia: CXR images reviewed, shows worsening infiltrate on the right. Pneumonia Severity Index score 122 (age 61, +cancer, lung disease, O2 sat 87%), recommends inpatient admission. Started on IV Cefepime and Azithro. Robitussin prn cough. COPD Exacerbation: with +wheezing on exam. S/p IV Solu-medrol 125mg and Duonebs x3 in the ED. Continue IV Solu-medrol 40mg q6h, Duonebs q6h félix and q2h prn. Continue patient's Symbicort bid. Antibiotics as above. Atypical Chest Pain: suspect secondary to pneumonia/COPD as above, pain worse with deep inspiration/cough. Check serial cardiac enzymes/EKG to rule out ACS. IV morphine prn. Continue aspirin, BB, O2. Lung Cancer: on chemo/radiation. Consult patient's oncologist Dr. Braxton. Encephalopathy/Confusion: suspect secondary to infection as above. Patient now AAOx4 however reported confusion at Dr. Vasquez's office today. Will defer further brain imaging to Dr. Braxton. Monitor neuro checks. Hypertension: chronic, stable, continue patient's norvasc, metoprolol. Monitor BP, adjust antihypertensives as needed. Atrial Fibrillation: on aspirin only due to side effects from Coumadin. EKG reviewed. Chronic Pain: on methadone 170mg daily, will verify with [facility] in am. IV morphine prn pain for now. DVT Prophylaxis: teds/SCDs Written by Leonora Coates, acting as scribe for Dr. Steinberg on 03/03/17 at 17: 59. This note was transcribed by scribe Leonora Coates. I, Dr. Julio Steinberg personally performed the history, physical exam, and medical decision making; and confirmed the accuracy of the information in the transcribed note. Authenticated by Dr. Julio Steinberg on 03/03/17 at 19:07. Discussed Condition With Patient, family at bedside, Dr. Soares, ED RN Physician Certification 2 Midnight Certification Type: Admission for Inpatient Services Order for Inpatient Services The services are ordered in accordance with Medicare regulations or non- Medicare payer requirements, as applicable. In the case of services not specified as inpatient-only, they are appropriately provided as inpatient services in accordance with the 2-midnight benchmark. Estimated LOS (days): 3 days is the estimated time the patient will need to remain in the hospital, assuming treatment plan goals are met and no additional complications. Post-Hospital Plan: Home Leonora Coates PA-C March 03, 2017 17:59 Julio Steinberg MD March 03, 2017 19:08
[2017-03-03] MEDS ORDERED: MORPHINE SULFATE 4 MG/ML INJ IV PRN (18:15)
[2017-03-03] MEDS ORDERED: ACETAMINOPHEN 325 MG TAB PO PRN (18:15)
[2017-03-03] MEDS ORDERED: NALOXONE HCL 0.4 MG/ML AMP IV PRN (18:15)
[2017-03-03] MEDS ORDERED: BISACODYL 10 MG SUPP RECTAL PRN (18:15)
[2017-03-03] MEDS ORDERED: RESP: ALBUTEROL 2.5 MG/IPRATROPIUM 0.5 MG NEB (PRN) NEB (18:15)
[2017-03-03] MEDS ORDERED: TEMAZEPAM 7.5 MG CAP PO PRN (18:45)
[2017-03-03] MEDS ORDERED: PILL SPLITTER OTHER PRN (18:45)
[2017-03-03] MEDS: CEFEPIME INJ 2,000 MG in SODIUM CHLORIDE 0.9% INJ 100 ML IV SCH (19:02)
[2017-03-03] MEDS: ONDANSETRON HCL 4 MG/2 ML VIAL IVP PRN (19:06)
[2017-03-03] MEDS: RESP: ALBUTEROL 2.5 MG/IPRATROPIUM 0.5 MG NEB (SCH) NEB (19:17)
[2017-03-03] MEDS: DOCUSATE SODIUM 100 MG CAP PO SCH (20:21)
[2017-03-03] MEDS: AZITHROMYCIN INJ 500 MG in SODIUM CHLOR 0.9% 250 ML INJ 250 ML IV SCH (20:21)
[2017-03-03 20:54] LABS: BACTERIA, URINE RARE /hpf; BLOOD, URINE NEG (NEG); COMMENT (UR) CULT NOT INDICATED; CULTURE IF INDICATED CULT NOT INDICATED; GLUCOSE,URINE 300 mg/dL (NEG); HYALINE CAST, URINE 1 /lpf (RARE); KETONE, URINE NEG (NEG); MUCUS URINE FEW /lpf (OCC); NITRITE,URINE NEG (NEG); SQUAMOUS EPITHELIAL CELL URINE 5 /hpf (0-5); URINE COLOR YELLOW (YELLW/STRAW)
[2017-03-03] MEDS: BUDESONIDE-FORMOTEROL 160/4.5 MCG INHALER INH SCH (21:00)
[2017-03-03] MEDS: METOPROLOL TARTRATE 25 MG TAB PO SCH (21:00)
[2017-03-03] MEDS: TEMAZEPAM 7.5 MG CAP PO PRN (22:53)
[2017-03-03] MEDS: methylPREDNISolone SOD SUCC 40 MG/1 ML VIAL IV PUSH SCH (22:53)
[2017-03-03] MEDS: guaiFENesin/DEXTROMETHORPHAN 200 MG/20 MG/10 ML CUP PO PRN (22:53)
[2017-03-03 23:18] LABS: CREATINE KINASE 171 U/L (26-192)
[2017-03-03 23:31] LABS: CKMB 2.5 NG/ML (0.5-3.6)
[2017-03-04] VITALS (9 sets, daily range): BP systolic 90–130; BP diastolic 51–73; PULSE 70–79; RESP 16–20; TEMP 95–98.4; O2SAT 94–98
[2017-03-04] MEDS: CEFEPIME INJ 2,000 MG in SODIUM CHLORIDE 0.9% INJ 100 ML IV SCH ×3 (02:28→17:50)
[2017-03-04 04:03] LABS: AUTOMATED NEUTROPHIL # 2.3 TH/MM3 (1.8-7.7); BASOPHIL % 0.3 % (0.0-2.0); EOSINOPHIL % 0.1 % (0.0-4.0); HEMATOCRIT 29.7 % (35.0-46.0); HEMO FLAGS DIFF FINAL; LYMPH % 7.7 % (9.0-44.0); LYMPHOCYTE # 0.2 TH/MM3 (1.0-4.8); MEAN CELL VOLUME 80.6 FL (80.0-100.0); MEAN CORPUSCULAR HEMOGLOBIN 26.9 PG (27.0-34.0); MEAN CORPUSCULAR HGB CONC 33.4 % (32.0-36.0); MONO % 11.5 % (0.0-8.0); NEUT % 80.4 % (16.0-70.0); PLATELET COUNT 286 TH/MM3 (150-450); RED BLOOD COUNT 3.69 MIL/MM3 (4.00-5.30); RED CELL DISTRIBUTION WIDTH 18.1 % (11.6-17.2); WHITE BLOOD COUNT 2.9 TH/MM3 (4.0-11.0)
[2017-03-04 04:29] LABS: ANION GAP 6 MEQ/L (5-15); AST (GOT) 21 U/L (15-37); BICARBONATE 33.4 MEQ/L (21.0-32.0); BLOOD UREA NITROGEN 9 MG/DL (7-18); CHLORIDE 97 MEQ/L (98-107); GLOMERULAR FILTRATION RATE 98 ML/MIN (>89); POTASSIUM 3.8 MEQ/L (3.5-5.1); SODIUM (NA) 136 MEQ/L (136-145)
[2017-03-04 04:33] LABS: ALKALINE PHOSPHATASE 65 U/L (45-117); ALT (GPT) 14 U/L (10-53); CREATINE KINASE 137 U/L (26-192); TOTAL BILIRUBIN ADULT 0.3 MG/DL (0.2-1.0)
[2017-03-04 04:46] LABS: CKMB 2.1 NG/ML (0.5-3.6)
[2017-03-04] MEDS: methylPREDNISolone SOD SUCC 40 MG/1 ML VIAL IV PUSH SCH ×3 (05:42→17:49)
[2017-03-04] MEDS: DOCUSATE SODIUM 100 MG CAP PO SCH ×3 (08:00→20:37)
[2017-03-04] MEDS ORDERED: METH10CO3 PO (08:14)
[2017-03-04] MEDS ORDERED: METHADONE HCL 10 MG/10 ML ORAL SOLUTION PO ONE (08:30)
[2017-03-04] MEDS ORDERED: METHADONE PO SCH ×2 (09:00)
--- NOTE | 2017-03-04 09:11 | MB ---
cc: KRYSTLE ALEXANDRE M.D., MATTHEW D. M.D. DATE OF CONSULTATION: 03/04/[address] Steinberg REASON FOR CONSULTATION Oncology was consulted to render an opinion regarding patient with lung cancer, admitted with confusion and weakness. HISTORY OF PRESENT ILLNESS The patient is a 61-year-old female with a history of non-small cell lung carcinoma stage IIIA, currently on chemotherapy, who presented to the emergency room complaining of increased confusion and weakness. The patient is a rather poor historian. When the patient went to see Dr. Vasquez yesterday she was noted to be more confused and had increased weakness. She was sent to the emergency room. The patient stated that over the last few days she has not been feeling well. She had a feverish feeling but did not take her temperature. She has increased weakness and fatigue. She has had a headache on and off. She has chronic cough productive of clear sputum. Denies any hemoptysis. She also has increased shortness of breath. Has nausea without vomiting. Has abdominal pain. Has chronic low back pain. Denies any change in urinary habit. Denies any diarrhea. PAST MEDICAL HISTORY 1. Non-small cell lung carcinoma, stage III. 2. Chronic obstructive pulmonary disease. 3. Hypertension. 4. Hepatitis C. 5. Retinal detachment. 6. Cervical precancerous lesion. 7. Paroxysmal atrial fibrillation. PAST SURGICAL HISTORY 1. Retina surgery. 2. D&C. 3. Port placement. 4. Cataract surgery. 5. Cervical cone procedure. FAMILY HISTORY A brother of lung cancer. SOCIAL HISTORY Smoked a pack a day for more than 30 years. She has just cut back. She has addiction to pain medication and is currently on methadone. ALLERGIES 1. SULFA. 2. TORADOL. MEDICATIONS Current medications: 1. Methadone. 2. Symbicort. 3. Lopressor. 4. Zofran. 5. Bacitracin. REVIEW OF SYSTEMS CONSTITUTIONAL: As above. EYES: Denies any blurry vision or double vision. Her left eye is blind. ENT: Denies any mouth sores or voice changes. CARDIOVASCULAR: Denies chest pressure or palpitations. RESPIRATORY: As above. GI: As above. : No dysuria or hematuria. MUSCULOSKELETAL: Has chronic pain. HEMATOLOGIC: Negative. ENDOCRINE: Negative. DERMATOLOGIC: Negative. PSYCHIATRIC: As above. NEUROLOGIC: As above. PHYSICAL EXAMINATION VITAL SIGNS: Temperature 97, blood pressure 113/57, O2 saturation 97% on three liter nasal cannula. GENERAL: She is alert and oriented x3. She looks a little tired. HEENT: Atraumatic, normocephalic. Left eye is cloudy and blind. NECK: No thyromegaly. No palpable mass. LYMPHATIC: No palpable cervical, clavicular, axillary or inguinal lymph nodes. CARDIOVASCULAR: Regular S1, S2. LUNGS: Diffuse wheezes and crackles inn the right lung. ABDOMEN: Soft, nontender. I could not palpate the liver or spleen. EXTREMITIES: No cyanosis. No edema. BACK: Has low back pain. SKIN: No rash or petechiae. NEUROLOGIC: Nonfocal. LABORATORY Laboratory data reviewed. IMAGING Chest x-ray: Worsening infiltrate on the right. ASSESSMENT 1. Non-small cell lung carcinoma, stage IIIA. She presented with a large right hilar mass extending to the infrahilar region causing collapse of the right lower lobe. The mass measured 8.2 cm. There was also multiple hilar and mediastinal adenopathy. She completed radiation with concurrent carboplatin and Taxol. She just completed first cycle of consolidation chemotherapy on February 16. Her last CT scan showed improvement with decreased right lung mass and adenopathy. 2. Pneumonia. She presented with increased confusion, "feverish" feeling and increased cough. Chest x-ray showed increased infiltrate on the right side. I think she may have pneumonia. She was started on cefepime and azithromycin. Given her history of lung cancer I am going to get a CT of the chest to make sure she does not have progression of disease. 3. Mental status change. She has had increased confusion lately. She also has increased headache. Will get a brain MRI to rule out brain metastasis. This may be metabolic encephalopathy due to pneumonia. 4. Recent head trauma with scalp laceration, resolved, 5. Chronic obstructive pulmonary disease. She was started on steroid and oxygen supplement. 6. History of paroxysmal atrial fibrillation. She was on Coumadin but had to stop after she fell and developed a scalp laceration and bleeding. 7. History of drug abuse. She is on methadone. 8. Right kidney mass noted on the last CT scan. This will need to be addressed once she is done with the treatment for her lung cancer. 9. Leukopenia and anemia due to recent chemotherapy. She is not neutropenic. RECOMMENDATIONS 1. Get a CT of the chest and brain MRI. 2. Continue antibiotic for treatment of presumed pneumonia. 3. DVT prophylaxis. Thank you Dr. Steinberg for asking me to see this patient. MD PHILIP Montes De Oca/MENG /8:36 AM /8:53 AM ALBERTINA
[2017-03-04] MEDS: RESP: ALBUTEROL 2.5 MG/IPRATROPIUM 0.5 MG NEB (SCH) NEB ×3 (09:13→19:45)
[2017-03-04] MEDS: ONDANSETRON HCL 4 MG/2 ML VIAL IVP PRN ×2 (09:39→17:48)
[2017-03-04] MEDS: amLODIPine BESYLATE 5 MG TAB PO SCH (09:39)
[2017-03-04] MEDS: ENOXAPARIN SODIUM 40 MG/0.4 ML SYRINGE SQ SCH (09:39)
[2017-03-04] MEDS: METOPROLOL TARTRATE 25 MG TAB PO SCH ×2 (09:39→20:37)
[2017-03-04] MEDS: ASPIRIN EC 81 MG TABEC PO SCH (09:40)
[2017-03-04] MEDS: BUDESONIDE-FORMOTEROL 160/4.5 MCG INHALER INH SCH ×2 (09:48→20:38)
--- NOTE | 2017-03-04 10:43 | HHI.PR ---
Subjective Remarks Follow-up COPD exacerbation, pneumonia, lung cancer. The patient reports nonproductive cough. She feels that her shortness of breath has improved somewhat. She reports some right-sided chest discomfort. Objective Vitals Vital Signs Date Time Temp Pulse Resp B/P Pulse Ox O2 Delivery O2 Flow Rate FiO2 03/04/17 09:13 98 Nasal Cannula 3.00 03/04/17 08:00 95.0 79 20 126/63 95 03/04/17 05:22 97.0 74 18 113/57 97 03/04/17 00:25 98.4 75 18 90/51 95 03/03/17 21:32 96.2 82 18 100/56 96 03/03/17 20:51 82 20 100/62 96 Nasal Cannula 3 03/03/17 19:19 96 Nasal Cannula 3.00 03/03/17 19:02 98.0 81 20 103/58 96 Nasal Cannula 3 03/03/17 16:51 92 Nasal Cannula 4 03/03/17 15:30 94 Nasal Cannula 3.00 03/03/17 15:17 99.0 83 20 119/66 100 03/03/17 15:01 99.4 89 20 128/79 87 3 I/O 03/03/17 03/03/17 03/03/17 03/04/17 03/04/17 03/04/17 06:59 14:59 22:59 06:59 14:59 22:59 Intake Total 360 ml 950 ml Balance 360 ml 950 ml Intake Oral 360 ml 950 ml # Voids 1 2 # Bowel Movements 0 0 Result Diagram: 03/04/17 0259 03/04/17 0259 Imaging Last Impressions Chest X-Ray 03/03/17 1526 Signed Impressions: Service Date/Time: February 15:37 - CONCLUSION: Worsening infiltrate on the right. Omar Venegas MD Objective Remarks General: Elderly female in no acute distress. Heart: Regular rate and rhythm. No murmur. Lungs: Diffuse wheeze. Breathing is nonlabored. Abdomen: Soft, nontender, nondistended. Extremities: No lower extremity edema. Psych: Alert and oriented. Procedures None Urinary Catheter: No Vascular Central Line Catheter: No A/P Problem List: (1) Pneumonia ICD Code: J18.9 Status: Acute (2) Lung cancer ICD Code: C34.90 Status: Chronic (3) COPD with acute exacerbation ICD Code: J44.1 Status: Acute (4) Hypoxemia ICD Code: R09.02 Status: Acute Assessment and Plan 1. Acute on chronic respiratory failure: Multifactorial, secondary to COPD exacerbation, pneumonia, lung cancer. Continue supplemental oxygen. Incentive spirometry. 2. Health care associated pneumonia: Continue antibiotics. Robitussin as needed for cough. 3. Non-small cell lung cancer: Appreciate oncology recommendations. CT of the chest and MRI of the brain have been ordered. 4. COPD exacerbation: Continue Solu-Medrol, bronchodilators, supplemental oxygen. 5. Atypical chest pain: Likely secondary to pneumonia, COPD, coughing. Cardiac enzymes are negative. Pain control as needed. 6. Encephalopathy, confusion: Likely secondary to infection. MRI of the brain ordered to evaluate for possible metastases. 7. Hypertension: Chronic, stable. Continue Norvasc, metoprolol. 8. Atrial fibrillation: Patient had side effects with Coumadin, and is now on only aspirin. 9. Chronic pain: Patient takes methadone 170 mg daily. This was verified by the nurse with the [place] [facility]. 10. DVT prophylaxis: SCDs, MIR mendoza. Problem Qualifiers (1) Pneumonia: Qualified Code: J18.9 - Pneumonia due to infectious organism, unspecified laterality, unspecified part of lung (2) Lung cancer: Qualified Code: C34.90 - Malignant neoplasm of lung, unspecified laterality, unspecified part of lung Julio Steinberg MD March 04, 2017 10:42
[2017-03-04] MEDS ORDERED: GADODIAMIDE PF 287 MG/ML 10 ML VIAL (for RAD MRI) IV ONE (15:13)
--- NOTE | 2017-03-04 15:26 | EKG ---
Date Performed: 03/04/2017 Time Performed: 03:34:49 PTAGE: 61 years EKG: Sinus rhythm POSSIBLE LEFT ATRIAL ENLARGEMENT BORDERLINE ECG PREVIOUS TRACING : 03/03/2017 22.14 DOCTOR: Fish Lackey Interpretating Date/Time 03/04/2017 15:24:11
--- NOTE | 2017-03-04 15:30 | RADRPT ---
EXAM DATE/TIME: 03/04/2017 14:53 [facility] COMPARISON: MRI BRAIN W & W/O CONTRAST, November 01, 2016, 15:15. INDICATIONS : Cephalgia. CONTRAST: 10 cc Omniscan (gadodiamide) IV MEDICAL HISTORY : Seizures. Carcinoma, lung. Hypertension. COPD, Hep C SURGICAL HISTORY : Cervical cone, cataract ENCOUNTER: Initial ACUITY: 1 day PAIN SCORE: 5/10 LOCATION: cranial TECHNIQUE: Multiplanar, multisequence MRI of the brain was performed both prior to and following the administrat ion of paramagnetic contrast. FINDINGS: CEREBRUM: The ventricles are normal for age. No evidence of midline shift, mass lesion, hemorrhage or acute in farction. No extraaxial fluid collections are seen. The pituitary gland and suprasellar cistern are normal in configuration. WHITE MATTER: There is some increased T2 signal in the periventricular white matter most consistent with mild micro vascular ischemic demyelinative change. No significant signal abnormalities are seen in the white mat ter. POSTERIOR FOSSA: The cerebellum and brainstem are intact. The 4th ventricle is midline. The cerebellopontine angle is unremarkable. The cerebellar tonsils are normal in position. DIFFUSION IMAGING: No focal areas of restricted diffusion are seen. No evidence of acute infarction. EXTRACRANIAL: The visualized portions of the orbits and paranasal sinuses are unremarkable. POST-CONTRAST: No abnormal areas of parenchymal or dural enhancement. No evidence of blood-brain barrier breakdown. CONCLUSION: 1. Mild microvascular ischemic demyelinative change. No acute intracranial abnormality. Stevie Yu MD on March 04, 2017 at 15:22 Board Certified Radiologist. This report was verified electronically.
--- NOTE | 2017-03-04 15:30 | EKG ---
Date Performed: 03/03/2017 Time Performed: 22:14:12 PTAGE: 61 years EKG: Sinus rhythm POSSIBLE LEFT ATRIAL ENLARGEMENT BORDERLINE ECG PREVIOUS TRACING : 03/03/2017 16.59 DOCTOR: Fish Lackey Interpretating Date/Time 03/04/2017 15:27:24
[2017-03-04] MEDS ORDERED: IOHEXOL 350 MG/ML 10 ML VIAL (for RAD DIAG) IV ONE (15:38)
--- NOTE | 2017-03-04 15:39 | EKG ---
Date Performed: 03/03/2017 Time Performed: 16:59:22 PTAGE: 61 years EKG: Sinus rhythm NONSPECIFIC T-WAVE ABNORMALITY BORDERLINE ECG PREVIOUS TRACING : 02/03/2017 13.41 DOCTOR: Fish Lackey Interpretating Date/Time 03/04/2017 15:33:51
--- NOTE | 2017-03-04 15:51 | RADRPT ---
EXAM DATE/TIME: 03/04/2017 15:35 [facility] COMPARISON: CT PULMONARY ANGIOGRAM, February 03, 2017, 20:27. CHEST SINGLE AP, March 03, 2017, 15:37. INDICATIONS : Hypoxia. Evaluate lung mass. IV CONTRAST: 75 cc Omnipaque 350 (iohexol) IV RADIATION DOSE: 333 CTDIvol (mGy) MEDICAL HISTORY : Carcinoma, lung. Cardiovascular disease Hypertension.COPD SURGICAL HISTORY : None. ENCOUNTER: Initial ACUITY: 1 day PAIN SCALE: 0/10 LOCATION: Bilateral chest TECHNIQUE: Volumetric scanning of the chest was performed. Using automated exposure control and adjustment of t he mA and/or kV according to patient size, radiation dose was kept as low as reasonably achievable to obtain optimal diagnostic quality images. FINDINGS: LUNGS: There is prominent honeycomb interstitial thickening throughout much of the right lung which is evolv ing. Moderate right middle lobe consolidation and atelectasis in the posterior right base associated with moderate right effusion. Patchy reticular parenchymal opacities are present on the contralateral left side PLEURA: Moderate right effusion, similar in size to prior. MEDIASTINUM: Right hilar and subcarinal soft tissue is grossly unchanged from previous. AXILLAE: Within normal limits. No lymphadenopathy. SKELETAL: Within normal limits for patient age. MISCELLANEOUS: The visualized upper abdominal organs demonstrate no acute abnormality. Multiple hepatic cysts. CONCLUSION: Some interval worsening in honeycomb interstitial changes in the right lung. Persistent areas of airs pace consolidation and persistent effusion. Omar Arnold MD on March 04, 2017 at 15:42 Board Certified Radiologist. This report was verified electronically.
[2017-03-04] MEDS: AZITHROMYCIN INJ 500 MG in SODIUM CHLOR 0.9% 250 ML INJ 250 ML IV SCH (20:39)
[2017-03-04] MEDS: TEMAZEPAM 7.5 MG CAP PO PRN (21:54)
[2017-03-05] VITALS (8 sets, daily range): BP systolic 109–129; BP diastolic 64–73; PULSE 63–77; RESP 16–20; TEMP 96.4–97.2; O2SAT 94–98
[2017-03-05] MEDS: methylPREDNISolone SOD SUCC 40 MG/1 ML VIAL IV PUSH SCH ×4 (00:35→17:29)
[2017-03-05] MEDS: CEFEPIME INJ 2,000 MG in SODIUM CHLORIDE 0.9% INJ 100 ML IV SCH ×3 (01:49→17:29)
[2017-03-05 02:22] LABS: C. DIFF EPI 027 PRESUMPTIVE NEGATIVE (NEGATIVE); C. DIFF TOXIN PCR NEGATIVE (NEGATIVE)
[2017-03-05] MEDS ORDERED: METHADONE PO SCH (06:00)
[2017-03-05 07:33] LABS: AUTOMATED NEUTROPHIL # 10.1 TH/MM3 (1.8-7.7); BASOPHIL % 0.4 % (0.0-2.0); HEMATOCRIT 31.8 % (35.0-46.0); HEMO FLAGS DIFF FINAL; LYMPH % 3.1 % (9.0-44.0); LYMPHOCYTE # 0.4 TH/MM3 (1.0-4.8); MEAN CELL VOLUME 82.3 FL (80.0-100.0); MEAN CORPUSCULAR HEMOGLOBIN 26.6 PG (27.0-34.0); MEAN CORPUSCULAR HGB CONC 32.3 % (32.0-36.0); MONO % 7.3 % (0.0-8.0); NEUT % 89.2 % (16.0-70.0); PLATELET COUNT 280 TH/MM3 (150-450); RED BLOOD COUNT 3.87 MIL/MM3 (4.00-5.30); RED CELL DISTRIBUTION WIDTH 18.2 % (11.6-17.2); WHITE BLOOD COUNT 11.3 TH/MM3 (4.0-11.0)
[2017-03-05] MEDS: DOCUSATE SODIUM 100 MG CAP PO SCH ×2 (08:00→20:00)
[2017-03-05] MEDS: BUDESONIDE-FORMOTEROL 160/4.5 MCG INHALER INH SCH ×2 (08:07→20:46)
[2017-03-05] MEDS: ASPIRIN EC 81 MG TABEC PO SCH (08:08)
[2017-03-05] MEDS: METOPROLOL TARTRATE 25 MG TAB PO SCH ×2 (08:09→20:46)
[2017-03-05] MEDS: ENOXAPARIN SODIUM 40 MG/0.4 ML SYRINGE SQ SCH (08:10)
[2017-03-05] MEDS: ONDANSETRON HCL 4 MG/2 ML VIAL IVP PRN ×3 (08:18→20:43)
[2017-03-05] MEDS ORDERED: METHADONE HCL 10 MG TAB PO SCH (09:00)
[2017-03-05] MEDS: RESP: ALBUTEROL 2.5 MG/IPRATROPIUM 0.5 MG NEB (SCH) NEB ×3 (09:14→19:55)
--- NOTE | 2017-03-05 10:20 | HHI.PR ---
Subjective Remarks Follow up lung cancer, pneumonia. Patient is more sedated today, but awakens and answers questions. She reports cough, chest discomfort, diarrhea. Objective Vitals Vital Signs Date Time Temp Pulse Resp B/P Pulse Ox O2 Delivery O2 Flow Rate FiO2 03/05/17 09:15 Nasal Cannula 3.00 03/05/17 08:22 96 Nasal Cannula 3.00 03/05/17 07:50 96.7 71 20 129/69 97 03/05/17 04:40 97.2 71 16 117/68 96 03/05/17 00:39 Nasal Cannula 3.00 03/05/17 00:11 96.8 77 16 109/71 94 03/04/17 22:35 96.9 76 16 130/68 95 03/04/17 20:00 70 03/04/17 19:45 94 Nasal Cannula 3.00 03/04/17 14:02 96.0 77 18 114/73 94 03/04/17 12:00 96.5 74 20 101/59 95 I/O 03/04/17 03/04/17 03/04/17 03/05/17 03/05/17 03/05/17 07:00 15:00 23:00 07:00 15:00 23:00 Intake Total 950 ml 360 ml 650 ml 650 ml Balance 950 ml 360 ml 650 ml 650 ml Intake Oral 950 ml 360 ml 650 ml 650 ml # Voids 2 2 5 3 # Bowel Movements 0 1 2 Result Diagram: 03/05/17 0710 03/04/17 0259 Imaging Last Impressions Chest CT 03/04/17 0000 Signed Impressions: Service Date/Time: Saturday, March 04, 2017 15:35 - CONCLUSION: Some interval worsening in honeycomb interstitial changes in the right lung. Persistent areas of airspace consolidation and persistent effusion. Omar Arnold MD Brain MRI 03/04/17 0000 Signed Impressions: Service Date/Time: Saturday, March 04, 2017 14:53 - CONCLUSION: 1. Mild microvascular ischemic demyelinative change. No acute intracranial abnormality. Stevie Yu MD Chest X-Ray 03/03/17 1526 Signed Impressions: Service Date/Time: February 15:37 - CONCLUSION: Worsening infiltrate on the right. Omar Venegas MD Objective Remarks General: Elderly female in no acute distress. Heart: Regular rate and rhythm. No murmur. Lungs: Diffuse wheeze. Breathing is nonlabored. Abdomen: Soft, nontender, nondistended. Extremities: No lower extremity edema. Psych: Sleepy/sedated, but awakens to verbal stimuli and answers questions. Procedures None Urinary Catheter: No Vascular Central Line Catheter: No A/P Problem List: (1) Pneumonia ICD Code: J18.9 Status: Acute (2) Lung cancer ICD Code: C34.90 Status: Chronic (3) COPD with acute exacerbation ICD Code: J44.1 Status: Acute (4) Hypoxemia ICD Code: R09.02 Status: Acute Assessment and Plan 1. Acute on chronic respiratory failure: Multifactorial, secondary to COPD exacerbation, pneumonia, lung cancer. Continue supplemental oxygen. Incentive spirometry. 2. Health care associated pneumonia: Continue antibiotics. Robitussin as needed for cough. 3. Non-small cell lung cancer: Appreciate oncology recommendations. CT of the chest and MRI of the brain reports noted. 4. COPD exacerbation: Continue Solu-Medrol, bronchodilators, supplemental oxygen. 5. Atypical chest pain: Likely secondary to pneumonia, COPD, coughing. Cardiac enzymes are negative. Pain control as needed. 6. Encephalopathy, confusion: Likely secondary to infection. Brain MRI shows no acute changes. 7. Hypertension: Chronic, stable. Continue Norvasc, metoprolol. 8. Atrial fibrillation: Patient had side effects with Coumadin, and is now on only aspirin. 9. Chronic pain: Patient takes methadone 170 mg daily. This was verified by the nurse with the [facility]. 10. DVT prophylaxis: SCDs, MIR mendoza. 11. Diarrhea: Likely secondary to antibiotics. C. difficile negative. Problem Qualifiers (1) Pneumonia: Qualified Code: J18.9 - Pneumonia due to infectious organism, unspecified laterality, unspecified part of lung (2) Lung cancer: Qualified Code: C34.90 - Malignant neoplasm of lung, unspecified laterality, unspecified part of lung Julio Steinberg MD March 05, 2017 10:20
--- NOTE | 2017-03-05 11:00 | PD.ONC.PN ---
Subjective Subjective Remarks Afebrile overnight. Pt resting in bed in no distress. Her speech is slow. She tells me she feels tired. Weakness somewhat improved. Denies pain, SOB. Objective Data Date Time Temp Pulse Resp B/P Pulse Ox O2 Delivery O2 Flow Rate FiO2 03/05/17 09:15 Nasal Cannula 3.00 03/05/17 08:22 96 Nasal Cannula 3.00 03/05/17 07:50 96.7 71 20 129/69 97 03/05/17 04:40 97.2 71 16 117/68 96 03/05/17 00:39 Nasal Cannula 3.00 03/05/17 00:11 96.8 77 16 109/71 94 03/04/17 22:35 96.9 76 16 130/68 95 03/04/17 20:00 70 03/04/17 19:45 94 Nasal Cannula 3.00 03/04/17 14:02 96.0 77 18 114/73 94 03/04/17 12:00 96.5 74 20 101/59 95 03/05/17 03/05/17 03/05/17 07:00 15:00 23:00 Intake Total 650 ml Balance 650 ml Result Diagram: 03/05/17 0710 03/04/17 0259 Laboratory Results Laboratory Tests Test 03/04/17 03/05/17 23:30 07:10 Stool C. difficile Toxin (PCR) NEGATIVE Stl C. difficile Toxin PRESUMPTIVE Epiderm 027 NEGATIVE White Blood Count 11.3 TH/MM3 Red Blood Count 3.87 MIL/MM3 Hemoglobin 10.3 GM/DL Hematocrit 31.8 % Mean Corpuscular Volume 82.3 FL Mean Corpuscular Hemoglobin 26.6 PG Mean Corpuscular Hemoglobin 32.3 % Concent Red Cell Distribution Width 18.2 % Platelet Count 280 TH/MM3 Mean Platelet Volume 6.7 FL Neutrophils (%) (Auto) 89.2 % Lymphocytes (%) (Auto) 3.1 % Monocytes (%) (Auto) 7.3 % Eosinophils (%) (Auto) 0.0 % Basophils (%) (Auto) 0.4 % Neutrophils # (Auto) 10.1 TH/MM3 Lymphocytes # (Auto) 0.4 TH/MM3 Monocytes # (Auto) 0.8 TH/MM3 Eosinophils # (Auto) 0.0 TH/MM3 Basophils # (Auto) 0.0 TH/MM3 CBC Comment DIFF FINAL Differential Comment Culture Results Microbiology Date/Time Procedure Status Source Growth 03/03/17 15:25 Aerobic Blood Culture - Preliminary Resulted Blood Peripheral NO GROWTH IN 1 DAY 03/03/17 15:25 Anaerobic Blood Culture - Preliminary Resulted Blood Peripheral NO GROWTH IN 1 DAY 03/03/17 15:30 Aerobic Blood Culture - Preliminary Resulted Blood Peripheral NO GROWTH IN 1 DAY 03/03/17 15:30 Anaerobic Blood Culture - Preliminary Resulted Blood Peripheral NO GROWTH IN 1 DAY 03/03/17 15:35 Influenza Types A,B Antigen ([place]) - Final Complete Nasal Washing NEGATIVE FOR FLU A AND B ANTIGEN.... Administered Medications Medications (Trade) Dose Ordered Sig/Félix Route PRN Reason Start Time Stop Time Status Last Admin Dose Admin Cefepime HCl 2000 mg/Sodium Chloride 100 ml @ 200 mls/hr Q8H IV 03/03/17 18:00 03/05/17 01:49 Azithromycin/ Sodium Chloride (Zithromax Inj/ NS 250 ml Inj) 250 ml @ 250 mls/hr Q24H IV 03/03/17 20:00 03/04/17 20:39 Methylprednisolone Sodium Succinate (SoluMEDROL INJ) 40 mg Q6HR IV PUSH 03/04/17 00:00 03/05/17 05:31 Ondansetron HCl (Zofran Inj) 4 mg Q6H PRN IVP NAUSEA OR VOMITING 03/03/17 18:15 03/05/17 08:18 Docusate Sodium (Colace) 100 mg Q12H PO 03/03/17 20:00 03/03/17 20:21 Temazepam (Restoril) 7.5 mg HS PRN PO INSOMNIA 03/03/17 18:30 03/04/17 21:54 Guaifenesin/ Dextromethorphan (Robitussin Dm 200-20 Mg/10 ml Liq) 10 ml Q4H PRN PO COUGH 03/03/17 18:45 03/03/17 22:53 Amlodipine Besylate (Norvasc) 2.5 mg DAILY PO 03/04/17 09:00 03/04/17 09:39 Aspirin (Ecotrin Ec) 81 mg DAILY PO 03/04/17 09:00 03/05/17 08:08 Budesonide/ Formoterol Fumarate (Symbicort 160-4.5 Inh) 2 puff Q12HR INH 03/03/17 21:00 03/05/17 08:07 Metoprolol Tartrate (Lopressor) 25 mg Q12HR PO 03/03/17 21:00 03/05/17 08:09 Enoxaparin Sodium (Lovenox Inj) 40 mg Q24H SQ 03/04/17 09:00 03/05/17 08:10 Methadone HCl (Dolophine) 170 mg DAILY PO 03/05/17 09:00 03/05/17 08:09 Objective Remarks GENERAL: Chronically ill-appearing older female resting in bed in no distress SKIN: Warm and dry. HEAD: Normocephalic. EYES: No injection or drainage. Left eye blindness. NECK: Supple, trachea midline. LYMPHATIC: No adenopathy. CARDIOVASCULAR: Regular rate and rhythm without murmurs. RESPIRATORY: Scattered wheezes, rhonchi. GASTROINTESTINAL: Soft, non-distended. +BS. EXTREMITIES: No edema. MUSCULOSKELETAL: Adequate muscle tone. NEUROLOGICAL: Slow speech. Moving all extremities. 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 Assessment/Plan Problem List: (1) Non-small cell carcinoma of right lung, stage 3 Status: Chronic Plan: -- MRI brain negative for mets. -- CT chest with interval worsening. -- s/p consolidation chemo on 02/16. (2) Pneumonia Status: Acute Plan: -- On Azithromycin, Cefepime. -- Has been afebrile Assessment 61 y/o female with history of lung cancer presents to the ER with increased weakness, cough and SOB. Plan 1. Continue Abx 2. Supportive care. 3. Monitor for fevers. 4. Will plan to continue consolidation chemo on an outpatient basis. Attending Statement The exam, history, and the medical decision-making described in the above note were completed with the assistance of the mid-level provider. I reviewed and agree with the findings presented. I attest that I had a [id number] encounter with the patient on the same day, and personally performed and documented my assessment and findings in the medical record. Feels better. Request changing methadone to 0600 and regular diet. Reviewed MRI and CT with pt. Continue abx and supportive care. change diet to regular. Problem Qualifiers (1) Pneumonia: Qualified Code: J18.9 - Pneumonia due to infectious organism, unspecified laterality, unspecified part of lung BirdRose March 05, 2017 11:00 Harshil Braxton MD March 05, 2017 11:59
[2017-03-05] MEDS: amLODIPine BESYLATE 5 MG TAB PO SCH (13:19)
[2017-03-05] MEDS: TEMAZEPAM 7.5 MG CAP PO PRN (20:46)
[2017-03-05] MEDS: AZITHROMYCIN INJ 500 MG in SODIUM CHLOR 0.9% 250 ML INJ 250 ML IV SCH (20:46)
[2017-03-06] VITALS (8 sets, daily range): BP systolic 121–142; BP diastolic 61–86; PULSE 60–77; RESP 16–20; TEMP 96.4–98; O2SAT 93–97
[2017-03-06] MEDS: CEFEPIME INJ 2,000 MG in SODIUM CHLORIDE 0.9% INJ 100 ML IV SCH ×3 (02:00→18:09)
[2017-03-06] MEDS: ONDANSETRON HCL 4 MG/2 ML VIAL IVP PRN ×3 (03:02→18:10)
[2017-03-06] MEDS: methylPREDNISolone SOD SUCC 40 MG/1 ML VIAL IV PUSH SCH ×4 (05:45→18:09)
[2017-03-06] MEDS ORDERED: METHADONE HCL 10 MG TAB PO SCH (06:00)
[2017-03-06] MEDS: DOCUSATE SODIUM 100 MG CAP PO SCH ×2 (08:00→20:27)
[2017-03-06] MEDS: RESP: ALBUTEROL 2.5 MG/IPRATROPIUM 0.5 MG NEB (SCH) NEB ×3 (08:17→20:05)
[2017-03-06] MEDS: amLODIPine BESYLATE 5 MG TAB PO SCH (08:52)
[2017-03-06] MEDS: ENOXAPARIN SODIUM 40 MG/0.4 ML SYRINGE SQ SCH (08:52)
[2017-03-06] MEDS: ASPIRIN EC 81 MG TABEC PO SCH (08:53)
[2017-03-06] MEDS: BUDESONIDE-FORMOTEROL 160/4.5 MCG INHALER INH SCH ×2 (08:53→20:28)
[2017-03-06] MEDS: METOPROLOL TARTRATE 25 MG TAB PO SCH ×2 (08:53→20:29)
--- NOTE | 2017-03-06 10:21 | PD.ONC.PN ---
Subjective Subjective Remarks Afebrile overnight. Pt sitting up in bed eating breakfast in no distress. She has no complaints. States she is feeling much better. Objective Data Date Time Temp Pulse Resp B/P Pulse Ox O2 Delivery O2 Flow Rate FiO2 03/06/17 09:06 93 Nasal Cannula 2.00 03/06/17 08:29 97.3 66 18 126/77 93 03/06/17 08:20 97 Nasal Cannula 2.00 03/06/17 04:00 97.4 67 16 142/82 96 03/06/17 00:00 97.0 69 16 126/68 94 03/05/17 22:00 Nasal Cannula 2.00 03/05/17 20:00 96.7 70 16 118/73 95 03/05/17 19:56 98 Nasal Cannula 3.00 03/05/17 15:50 96.6 63 20 120/64 96 03/05/17 11:50 96.4 66 20 118/66 95 03/06/17 03/06/17 03/06/17 07:00 15:00 23:00 Intake Total 720 ml Balance 720 ml Result Diagram: 03/05/17 0710 03/04/17 0259 Culture Results Microbiology Date/Time Procedure Status Source Growth 03/03/17 15:25 Aerobic Blood Culture - Preliminary Resulted Blood Peripheral NO GROWTH IN 2 DAYS 03/03/17 15:25 Anaerobic Blood Culture - Preliminary Resulted Blood Peripheral NO GROWTH IN 2 DAYS 03/03/17 15:30 Aerobic Blood Culture - Preliminary Resulted Blood Peripheral NO GROWTH IN 2 DAYS 03/03/17 15:30 Anaerobic Blood Culture - Preliminary Resulted Blood Peripheral NO GROWTH IN 2 DAYS 03/03/17 15:35 Influenza Types A,B Antigen ([place]) - Final Complete Nasal Washing NEGATIVE FOR FLU A AND B ANTIGEN.... Administered Medications Medications (Trade) Dose Ordered Sig/Félix Route PRN Reason Start Time Stop Time Status Last Admin Dose Admin Cefepime HCl 2000 mg/Sodium Chloride 100 ml @ 200 mls/hr Q8H IV 03/03/17 18:00 03/06/17 09:00 Azithromycin/ Sodium Chloride (Zithromax Inj/ NS 250 ml Inj) 250 ml @ 250 mls/hr Q24H IV 03/03/17 20:00 03/05/17 20:46 Methylprednisolone Sodium Succinate (SoluMEDROL INJ) 40 mg Q6HR IV PUSH 03/04/17 00:00 03/06/17 05:45 Ondansetron HCl (Zofran Inj) 4 mg Q6H PRN IVP NAUSEA OR VOMITING 03/03/17 18:15 03/06/17 08:59 Docusate Sodium (Colace) 100 mg Q12H PO 03/03/17 20:00 03/03/17 20:21 Temazepam (Restoril) 7.5 mg HS PRN PO INSOMNIA 03/03/17 18:30 03/05/17 20:46 Guaifenesin/ Dextromethorphan (Robitussin Dm 200-20 Mg/10 ml Liq) 10 ml Q4H PRN PO COUGH 03/03/17 18:45 03/03/17 22:53 Amlodipine Besylate (Norvasc) 2.5 mg DAILY PO 03/04/17 09:00 03/06/17 08:52 Aspirin (Ecotrin Ec) 81 mg DAILY PO 03/04/17 09:00 03/06/17 08:53 Budesonide/ Formoterol Fumarate (Symbicort 160-4.5 Inh) 2 puff Q12HR INH 03/03/17 21:00 03/06/17 08:53 Metoprolol Tartrate (Lopressor) 25 mg Q12HR PO 03/03/17 21:00 03/06/17 08:53 Enoxaparin Sodium (Lovenox Inj) 40 mg Q24H SQ 03/04/17 09:00 03/06/17 08:52 Methadone HCl (Dolophine) 170 mg DAILY PO 03/06/17 06:00 03/06/17 05:48 Objective Remarks GENERAL: Older female sitting up in bed eating breakfast in no distress SKIN: Warm and dry. HEAD: Normocephalic. EYES: No injection or drainage. Left eye blindness. NECK: Supple, trachea midline. LYMPHATIC: No adenopathy. CARDIOVASCULAR: Regular rate and rhythm without murmurs. RESPIRATORY: Scattered expiratory wheezes. GASTROINTESTINAL: Soft, non-distended. +BS. EXTREMITIES: No edema. MUSCULOSKELETAL: Adequate muscle tone. NEUROLOGICAL: Normal speech. Moving all extremities. Equal cutter operator strengths. Assessment/Plan Problem List: (1) Non-small cell carcinoma of right lung, stage 3 Status: Chronic Plan: -- MRI brain negative for mets. -- CT chest with interval worsening. -- s/p consolidation chemo on 02/16. (2) Pneumonia Status: Acute Plan: -- On Azithromycin, Cefepime. -- Has been afebrile Assessment 61 y/o female with history of lung cancer presents to the ER with increased weakness, cough and SOB. Plan 1. Pt clinically doing better. 2. We will followup with her as an outpatient to discuss if she will have future chemo or not. 3. Continue Abx, supportive care. Attending Statement The exam, history, and the medical decision-making described in the above note were completed with the assistance of the mid-level provider. I reviewed and agree with the findings presented. I attest that I had a [id number] encounter with the patient on the same day, and personally performed and documented my assessment and findings in the medical record. Feeling better. Afebrile and mental status back to baseline. Still looks weak. Continue current tx and hopefully can be d/c tomorrow if she continue to improve. Discussed with . Problem Qualifiers (1) Pneumonia: Qualified Code: J18.9 - Pneumonia due to infectious organism, unspecified laterality, unspecified part of lung Rose Guadarrama March 06, 2017 10:21 Harshil Braxton MD March 06, 2017 11:24
[2017-03-06] MEDS: guaiFENesin/DEXTROMETHORPHAN 200 MG/20 MG/10 ML CUP PO PRN ×2 (11:10→18:09)
--- NOTE | 2017-03-06 13:09 | HHI.PR ---
Subjective Remarks Follow up pneumonia. Patient states that she feels much better and wants to go home. Dyspnea is improving. Still coughing. Objective Vitals Vital Signs Date Time Temp Pulse Resp B/P Pulse Ox O2 Delivery O2 Flow Rate FiO2 03/06/17 11:28 60 03/06/17 09:06 93 Nasal Cannula 2.00 03/06/17 08:29 97.3 66 18 126/77 93 03/06/17 08:20 97 Nasal Cannula 2.00 03/06/17 04:00 97.4 67 16 142/82 96 03/06/17 00:00 97.0 69 16 126/68 94 03/05/17 22:00 Nasal Cannula 2.00 03/05/17 20:00 96.7 70 16 118/73 95 03/05/17 19:56 98 Nasal Cannula 3.00 03/05/17 15:50 96.6 63 20 120/64 96 I/O 03/05/17 03/05/17 03/05/17 03/06/17 03/06/17 03/06/17 07:00 15:00 23:00 07:00 15:00 23:00 Intake Total 650 ml 537 ml 480 ml 720 ml Balance 650 ml 537 ml 480 ml 720 ml Intake Oral 650 ml 420 ml 480 ml 720 ml IV Total 117 ml # Voids 3 2 1 3 # Bowel Movements 2 1 Result Diagram: 03/05/17 0710 03/04/17 0259 Imaging Last Impressions Chest CT 03/04/17 0000 Signed Impressions: Service Date/Time: Saturday, March 04, 2017 15:35 - CONCLUSION: Some interval worsening in honeycomb interstitial changes in the right lung. Persistent areas of airspace consolidation and persistent effusion. Omar Arnold MD Brain MRI 03/04/17 0000 Signed Impressions: Service Date/Time: Saturday, March 04, 2017 14:53 - CONCLUSION: 1. Mild microvascular ischemic demyelinative change. No acute intracranial abnormality. Stevie Yu MD Chest X-Ray 03/03/17 1526 Signed Impressions: Service Date/Time: February 15:37 - CONCLUSION: Worsening infiltrate on the right. Omar Venegas MD Objective Remarks General: Elderly female in no acute distress. Heart: Regular rate and rhythm. No murmur. Lungs: Diffuse wheeze. Breathing is nonlabored. Abdomen: Soft, nontender, nondistended. Extremities: No lower extremity edema. Psych: Alert & oriented. Answers questions appropriately. Procedures None Urinary Catheter: No Vascular Central Line Catheter: No A/P Problem List: (1) Pneumonia ICD Code: J18.9 Status: Acute (2) Lung cancer ICD Code: C34.90 Status: Chronic (3) COPD with acute exacerbation ICD Code: J44.1 Status: Acute (4) Hypoxemia ICD Code: R09.02 Status: Acute Assessment and Plan 1. Acute on chronic respiratory failure: Improving. Multifactorial, secondary to COPD exacerbation, pneumonia, lung cancer. Continue supplemental oxygen. Incentive spirometry. 2. Health care associated pneumonia: Continue antibiotics. Robitussin as needed for cough. 3. Non-small cell lung cancer: Appreciate oncology recommendations. CT of the chest and MRI of the brain reports noted. 4. COPD exacerbation: Continue Solu-Medrol, bronchodilators, supplemental oxygen. 5. Atypical chest pain: Likely secondary to pneumonia, COPD, coughing. Cardiac enzymes are negative. Pain control as needed. 6. Encephalopathy, confusion: Likely secondary to infection. Brain MRI shows no acute changes. 7. Hypertension: Chronic, stable. Continue Norvasc, metoprolol. 8. Atrial fibrillation: Patient had side effects with Coumadin, and is now on only aspirin. 9. Chronic pain: Patient takes methadone 170 mg daily. This was verified by the nurse with the [place] [facility]. 10. DVT prophylaxis: SCDs, MIR mendoza. 11. Diarrhea: Likely secondary to antibiotics. C. difficile negative. Discussed with Dr. Braxton. Discharge Planning Possible discharge home tomorrow. Problem Qualifiers (1) Pneumonia: Qualified Code: J18.9 - Pneumonia due to infectious organism, unspecified laterality, unspecified part of lung (2) Lung cancer: Qualified Code: C34.90 - Malignant neoplasm of lung, unspecified laterality, unspecified part of lung Julio Steinberg MD March 06, 2017 13:09
[2017-03-06] MEDS: TEMAZEPAM 7.5 MG CAP PO PRN (20:31)
[2017-03-06] MEDS: AZITHROMYCIN INJ 500 MG in SODIUM CHLOR 0.9% 250 ML INJ 250 ML IV SCH (20:32)
[2017-03-07] VITALS: BP 136/63; PULSE 58; RESP 17; TEMP 98; O2SAT 97
[2017-03-07] MEDS: methylPREDNISolone SOD SUCC 40 MG/1 ML VIAL IV PUSH SCH ×2 (00:50→06:08)
[2017-03-07] MEDS: ONDANSETRON HCL 4 MG/2 ML VIAL IVP PRN ×2 (00:53→08:16)
[2017-03-07] MEDS: CEFEPIME INJ 2,000 MG in SODIUM CHLORIDE 0.9% INJ 100 ML IV SCH ×2 (03:31→10:00)
[2017-03-07 04:00] VITALS: BP_SYST 133; BP_SYST 153; BP_DIAS 62; BP_DIAS 72; PULSE 60; PULSE 64; RESP 18; TEMP 97.6; TEMP 98.1; O2SAT 94; O2SAT 97
[2017-03-07] MEDS ORDERED: METHADONE HCL 10 MG TAB PO SCH ×2 (06:30→06:45)
[2017-03-07 08:00] VITALS: BP 158/80; PULSE 67; TEMP 97.1; O2SAT 93
[2017-03-07] MEDS: DOCUSATE SODIUM 100 MG CAP PO SCH (08:00)
--- NOTE | 2017-03-07 08:15 | PD.ONC.PN ---
Subjective Subjective Remarks Feeling better. Wants to go home. No CP/SOB. Objective Data Date Time Temp Pulse Resp B/P Pulse Ox O2 Delivery O2 Flow Rate FiO2 03/07/17 04:00 98.1 64 18 133/72 94 03/07/17 00:00 98.0 58 17 136/63 97 03/06/17 20:00 97 Nasal Cannula 2.00 03/06/17 20:00 73 19 128/86 97 03/06/17 20:00 77 03/06/17 20:00 98.0 03/06/17 16:00 96.4 71 20 130/79 95 03/06/17 12:45 96.9 72 20 121/61 96 03/06/17 11:28 60 03/06/17 09:06 93 Nasal Cannula 2.00 03/06/17 08:29 97.3 66 18 126/77 93 03/06/17 08:20 97 Nasal Cannula 2.00 Result Diagram: 03/05/17 0710 03/04/17 0259 Administered Medications Medications (Trade) Dose Ordered Sig/Félix Route PRN Reason Start Time Stop Time Status Last Admin Dose Admin Cefepime HCl 2000 mg/Sodium Chloride 100 ml @ 200 mls/hr Q8H IV 03/03/17 18:00 03/07/17 03:31 Azithromycin/ Sodium Chloride (Zithromax Inj/ NS 250 ml Inj) 250 ml @ 250 mls/hr Q24H IV 03/03/17 20:00 03/06/17 20:32 Methylprednisolone Sodium Succinate (SoluMEDROL INJ) 40 mg Q6HR IV PUSH 03/04/17 00:00 03/07/17 06:08 Ondansetron HCl (Zofran Inj) 4 mg Q6H PRN IVP NAUSEA OR VOMITING 03/03/17 18:15 03/07/17 00:53 Docusate Sodium (Colace) 100 mg Q12H PO 03/03/17 20:00 03/06/17 20:27 Temazepam (Restoril) 7.5 mg HS PRN PO INSOMNIA 03/03/17 18:30 03/06/17 20:31 Guaifenesin/ Dextromethorphan (Robitussin Dm 200-20 Mg/10 ml Liq) 10 ml Q4H PRN PO COUGH 03/03/17 18:45 03/06/17 18:09 Amlodipine Besylate (Norvasc) 2.5 mg DAILY PO 03/04/17 09:00 03/06/17 08:52 Aspirin (Ecotrin Ec) 81 mg DAILY PO 03/04/17 09:00 03/06/17 08:53 Budesonide/ Formoterol Fumarate (Symbicort 160-4.5 Inh) 2 puff Q12HR INH 03/03/17 21:00 03/06/17 20:28 Metoprolol Tartrate (Lopressor) 25 mg Q12HR PO 03/03/17 21:00 03/06/17 20:29 Enoxaparin Sodium (Lovenox Inj) 40 mg Q24H SQ 03/04/17 09:00 03/06/17 08:52 Methadone HCl (Dolophine) 170 mg DAILY@06 PO 03/07/17 06:30 03/07/17 06:49 Objective Remarks GENERAL: Well-nourished, well-developed patient. SKIN: Warm and dry. HEAD: Normocephalic. Left eye cloudiness EYES: No scleral icterus. No injection or drainage. NECK: Supple, trachea midline. No JVD or lymphadenopathy. LYMPHATIC: No adenopathy. CARDIOVASCULAR: Regular rate and rhythm without murmurs. RESPIRATORY: Breath sounds equal bilaterally. No accessory muscle use. GASTROINTESTINAL: Abdomen soft, non-tender, nondistended. EXTREMITIES: No cyanosis, or edema. MUSCULOSKELETAL: Adequate muscle tone. NEUROLOGICAL: No obvious focal deficit. Awake, alert, and oriented x3. PSYCHIATRIC: Appropriate mood and affect; insight and judgment normal. Assessment/Plan Problem List: (1) Non-small cell carcinoma of right lung, stage 3 Status: Chronic Plan: -- MRI brain negative for mets. -- CT chest with interval worsening. -- s/p consolidation chemo on 02/16. (2) Pneumonia Status: Acute Plan: --Resolving. -- On Azithromycin, Cefepime. -- Has been afebrile Assessment 61 y/o female with history of lung cancer presents to the ER with increased weakness, cough and SOB. Plan 1. Pt clinically doing better. 2. We will followup with her as an outpatient to discuss if she will have future chemo or not. 3. Recommend out pt po abx, 4. Can be d/c from oncology standpoint. Problem Qualifiers (1) Pneumonia: Qualified Code: J18.9 - Pneumonia due to infectious organism, unspecified laterality, unspecified part of lung Harshil Braxton MD March 07, 2017 08:15
[2017-03-07] MEDS: ASPIRIN EC 81 MG TABEC PO SCH (08:16)
[2017-03-07] MEDS: amLODIPine BESYLATE 5 MG TAB PO SCH (08:17)
[2017-03-07] MEDS: METOPROLOL TARTRATE 25 MG TAB PO SCH (08:17)
[2017-03-07 08:20] VITALS: PULSE 68
[2017-03-07] MEDS: ENOXAPARIN SODIUM 40 MG/0.4 ML SYRINGE SQ SCH (08:23)
[2017-03-07] MEDS: BUDESONIDE-FORMOTEROL 160/4.5 MCG INHALER INH SCH (08:23)
[2017-03-07] MEDS: RESP: ALBUTEROL 2.5 MG/IPRATROPIUM 0.5 MG NEB (SCH) NEB (09:13)
[2017-03-07 09:16] VITALS: O2SAT 96
[2017-03-07] MEDS ORDERED: CEFT500T3 PO (09:43)
[2017-03-07] MEDS ORDERED: AZIT500T2 PO (09:43)
[2017-03-07] MEDS ORDERED: PRED5PAK PO (09:43)
[2017-03-07] MEDS ORDERED: TEMA7.5C9 PO (09:43)
[2017-03-07] MEDS ORDERED: ONDA1TAB17 PO (09:43)
--- NOTE | 2017-03-07 09:44 | HHI.DCPOC ---
Discharge Care Plan Diagnosis: (1) Non-small cell carcinoma of right lung, stage 3 (2) COPD with acute exacerbation (3) Pneumonia Goals to Promote Your Health * To prevent worsening of your condition and complications * To maintain your health at the optimal level Directions to Meet Your Goals Take your medications as prescribed Follow your dietary instruction Follow activity as directed Keep your appointments as scheduled Take your immunizations and boosters as scheduled If your symptoms worsen call your PCP, if no PCP go to Urgent Care Center or Emergency Room Smoking is Dangerous to Your Health. Avoid second hand smoke Call the 24-hour hour crisis hotline for domestic abuse at Julio Steinberg MD March 07, 2017 09:44
--- NOTE | 2017-03-07 09:46 | HHI.DS ---
Discharge Summary Admission Date March 03, 2017 at 17:47 Discharge Date: March 07, 2017 Admitting Diagnosis pneumonia. Hypoxemia. Acute exacerbation COPD (1) Pneumonia ICD Code: J18.9 (2) Lung cancer ICD Code: C34.90 (3) COPD with acute exacerbation ICD Code: J44.1 (4) Hypoxemia ICD Code: R09.02 Procedures None Brief History - From Admission 61-year-old female with history of non-small cell lung cancer on chemo/radiation , COPD on home oxygen, hypertension, atrial fibrillation on aspirin, CHF, hepatitis C, presents with the past several days of cough, shortness of breath, and fever with confusion today. The patient is not the best historian, family at bedside assists with the history. The patient reports she was at her radiation oncologist's office today and Dr. Vasquez noticed her to be more confused and hypoxic, recommended she present to the ER. The patient reports over the past several days has been experiencing productive cough, with shortness of breath, dyspnea on exertion, wheezing, and subjective fevers at home. She also reports chest pain located at the mid sternal area with radiation to the mid back. She states this chest pain is new for her today. Her chest pain is alleviated by leaning forward and worsened by coughing and deep inspiration. She has also been experiencing significant nausea, vomiting, and indigestion. She has no other medical complaints including no diarrhea/ constipation or urinary complaints. Her medical oncologist is Dr. Braxton. Her last chemotherapy session was 2 weeks ago and she is scheduled for another round next week. The patient reports she only takes aspirin for her atrial fibrillation as she could not tolerate Coumadin. She also reports being on Methadone 170mg daily for her chronic pain. CBC/BMP: 03/05/17 0710 03/04/17 0259 Significant Findings Laboratory Tests Test 03/05/17 07:10 White Blood Count 11.3 TH/MM3 (4.0-11.0) Red Blood Count 3.87 MIL/MM3 (4.00-5.30) Hemoglobin 10.3 GM/DL (11.6-15.3) Hematocrit 31.8 % (35.0-46.0) Mean Corpuscular Hemoglobin 26.6 PG (27.0-34.0) Red Cell Distribution Width 18.2 % (11.6-17.2) Mean Platelet Volume 6.7 FL (7.0-11.0) Neutrophils (%) (Auto) 89.2 % (16.0-70.0) Lymphocytes (%) (Auto) 3.1 % (9.0-44.0) Neutrophils # (Auto) 10.1 TH/MM3 (1.8-7.7) Lymphocytes # (Auto) 0.4 TH/MM3 (1.0-4.8) Imaging Last Impressions Chest CT 03/04/17 0000 Signed Impressions: Service Date/Time: Saturday, March 04, 2017 15:35 - CONCLUSION: Some interval worsening in honeycomb interstitial changes in the right lung. Persistent areas of airspace consolidation and persistent effusion. Omar Arnold MD Brain MRI 03/04/17 0000 Signed Impressions: Service Date/Time: Saturday, March 04, 2017 14:53 - CONCLUSION: 1. Mild microvascular ischemic demyelinative change. No acute intracranial abnormality. Stevie Yu MD Chest X-Ray 03/03/17 1526 Signed Impressions: Service Date/Time: February 15:37 - CONCLUSION: Worsening infiltrate on the right. Omar Venegas MD PE at Discharge General: Elderly female in no acute distress. Heart: Regular rate and rhythm. No murmur. Lungs: Scattered wheeze. Breathing is nonlabored. Abdomen: Soft, nontender, nondistended. Extremities: No lower extremity edema. Psych: Alert & oriented. Answers questions appropriately. Pt update on day of discharge The patient states that she feels much better today and wants to go home. Dyspnea has improved. Cough is improving. No chest pain. Hospital Course The patient was admitted for treatment of acute on chronic respiratory failure, healthcare associated pneumonia, and COPD exacerbation. She was started on IV antibiotics, IV steroids, and bronchodilators. Oncology was consulted due to the patient's history of lung cancer being treated with chemotherapy and radiation. Her mental status improved throughout the hospitalization. Oxygen requirement decreased. She reported improving symptoms including dyspnea and cough. She was cleared for discharge by oncology with instructions for outpatient follow-up to discuss chemotherapy treatments. She was felt to be stable for discharge home. Pt Condition on Discharge: Stable Discharge Disposition: Discharge Home Discharge Time: > 30 minutes Discharge Instructions DIET: Follow Instructions for: As Tolerated, No Restrictions Activities you can perform: Regular-No Restrictions Follow up Referrals: Oncology - 1 Week PCP Follow-up - 1 Week New Medications: Azithromycin (Azithromycin) 500 Mg Tab 500 MG PO DAILY Infection #2 Ref 0 TAB Cefuroxime (Ceftin) 500 Mg Tab 500 MG PO BID Infection #10 Ref 0 TAB Prednisone (21) 5 mg tab Dose Pack (Prednisone (21) 5 mg tab Dose Pack) 5 Mg Dspk 5 MG PO DIRECTED Inflammation #1 Ref 0 DSPK Continued Medications: Albuterol 18 GM Inh (Ventolin Hfa 18 GM Inh) 90 Mcg/Act Aer 1 PUFF INH Q4H PRN SHORTNESS OF BREATH #1 Ref 3 INHALER Amlodipine (Norvasc) 5 Mg Tab 2.5 MG PO DAILY Blood Pressure Management #[address] (Aspirin EC) 81 Mg Tabdr 81 MG PO DAILY Blood Clot Prevention #90 Ref 0 TAB Budesonide-Formoterol Inh (Symbicort Inh) 160-4.5 Mcg/Act Aero 2 PUFF INH Q12HR Breathing Treatment #1 Ref 3 INHALER Methadone Intensol Liq (Methadone Intensol Liq) 10 Mg/Ml Conc 170 MG PO DAILY #30 Ref 0 ML Metoprolol Tartrate (Metoprolol Tartrate) 25 Mg Tab 25 MG PO Q12HR #60 TAB Ondansetron (Ondansetron) 8 Mg Tab 8 MG PO TID Nausea/Vomiting #30 Ref 0 TAB (This prescription has been renewed) Oxygen tank (Oxygen tank) 1 Ea Tank 2 LITER DIANE.CANULA CONTINUOUS Oxygen Concentrator Portable Gaseous 2 L/min via Nasal Cannula Continuous For 99 months HYPOXEMIA PREVENTION #1 CYLINDER Temazepam (Restoril) 7.5 Mg Cap 7.5 MG PO HS PRN INSOMNIA #5 Ref 0 CAP (This prescription has been renewed) Julio Steinberg MD March 07, 2017 09:46
== END 2017-03-07 12:27 | disposition home or self-care (01) | DRG 190 ==
LOC: NEPE 14:58 → NEDA 17:47 → HOCB 21:10
PROVIDERS: ADMIT Family Medicine; ATTEND Family Medicine
DX: J44.0 Chronic obstructive pulmonary disease with (acute) lower respiratory infection (principal); J96.21 Acute and chronic respiratory failure with hypoxia; G93.40 Encephalopathy, unspecified; J18.9 Pneumonia, unspecified organism; C34.01 Malignant neoplasm of right main bronchus; N28.89 Other specified disorders of kidney and ureter; D72.819 Decreased white blood cell count, unspecified; T45.1X5A Adverse effect of antineoplastic and immunosuppressive drugs, initial encounter; I10 Essential (primary) hypertension; I48.0 Paroxysmal atrial fibrillation; J44.1 Chronic obstructive pulmonary disease with (acute) exacerbation; F17.210 Nicotine dependence, cigarettes, uncomplicated; K21.9 Gastro-esophageal reflux disease without esophagitis; D64.81 Anemia due to antineoplastic chemotherapy; G89.29 Other chronic pain; B19.20 Unspecified viral hepatitis C without hepatic coma; Z99.81 Dependence on supplemental oxygen; Z79.01 Long term (current) use of anticoagulants; Z79.891 Long term (current) use of opiate analgesic
CPT/HCPCS: 36591; 36600; 70553; 71010; 71260; 80053; 81001; 82550; 82552; 82805; 83605; 83880; 84484; 85007; 85025; 85027; 85610; 85730; 87040; 87493; 87804; 93005; 94150; 94640; 94664; 96374; A9579; J0456; J0692; J1642; J1650; J2405; J2920; J2930; J7050; Q9967

== ENCOUNTER 2017-03-24 06:22 | Day surgery (SDC) | payer MEDICAID ==
[~2017-03-24] VITALS: Ht 167.6 cm; Wt 62.3 kg
[2017-03-24] VITALS (8 sets, daily range): BP systolic 90–115; BP diastolic 57–81; PULSE 55–69; RESP 18–22; TEMP 97.9–98.3; O2SAT 83–97
[~2017-03-24 06:22] MED LIST changes: +AZIT500T2 PO; +CEFT500T3 PO; +METH10CO3 PO; -METH10CO4 PO; +PRED5PAK PO
[2017-03-24] MEDS ORDERED: CEFU1TAB20 PO (06:58)
[2017-03-24] MEDS ORDERED: PROC10TA PO (06:58)
[2017-03-24] MEDS ORDERED: SODIUM CHLOR 0.9% 1000 ML INJ 1,000 ML IV SCH (07:00)
[2017-03-24 07:33] LABS: AUTOMATED NEUTROPHIL # 4.3 TH/MM3 (1.8-7.7); BASOPHIL % 0.7 % (0.0-2.0); EOSINOPHIL # 0.2 TH/MM3 (0-0.4); EOSINOPHIL % 2.6 % (0.0-4.0); HEMATOCRIT 33.3 % (35.0-46.0); HEMO FLAGS DIFF FINAL; LYMPH % 11.4 % (9.0-44.0); LYMPHOCYTE # 0.7 TH/MM3 (1.0-4.8); MEAN CELL VOLUME 81.3 FL (80.0-100.0); MEAN CORPUSCULAR HEMOGLOBIN 26.2 PG (27.0-34.0); MEAN CORPUSCULAR HGB CONC 32.3 % (32.0-36.0); NEUT % 71.3 % (16.0-70.0); PLATELET COUNT 333 TH/MM3 (150-450); RED CELL DISTRIBUTION WIDTH 19.1 % (11.6-17.2)
[2017-03-24 07:41] LABS: APTT (PATIENT) 27.6 SEC (24.3-30.1); PROTHROMBIN TIME - PATIENT 11.3 SEC (9.8-11.6)
[2017-03-24] MEDS ORDERED: LIDOCAINE HCL 1% 20 ML VIAL ONE (08:09)
[2017-03-24] MEDS ORDERED: MIDAZOLAM HCL 2 MG/2 ML VIAL ONE (08:25)
--- NOTE | 2017-03-24 09:39 | RADRPT ---
EXAM DATE/TIME: 03/24/2017 08:31 [facility] COMPARISON: No previous studies available for comparison. However, the outside abdomen pelvis CT was reviewed. INDICATIONS : Right renal mass. SEDATION TIME: 15 minutes BIOPSY SITE: Right MEDICATION(S): 1.) 2 mg midazolam (Versed) IV 2.) 100 mcg fentanyl (Sublimaze) IV DEVICE(S): 1.) 18 gauge Temno core biopsy needle MEDICAL HISTORY : Carcinoma, lung. Cardiovascular disease. Hypertension. SURGICAL HISTORY : None. ENCOUNTER: Initial ACUITY: 1 day PAIN SCORE: 0/10 LOCATION: Right A total of one core specimen(s) were obtained and sent to the laboratory for pathologic evaluation. PROCEDURE: 1. CT guided renal biopsy. 2. Conscious sedation with continuous EKG and oximetry monitoring. 3. EKG and oximetry remained stable throughout the procedure. Prior to the procedure informed consent was obtained. The patient's outside abdomen pelvis CT was rev iewed. Using automated exposure control and adjustment of the mA and/or kV according to patient size, radiat ion dose was kept as low as reasonably achievable to obtain optimal diagnostic quality images. The site was prepped in a sterile fashion. Full sterile technique was used, including cap, mask, linnea rile gloves and gown and a large sterile sheet. Hand hygiene and 2% chlorhexidine and/or betadine/al cohol prep was utilized per protocol for cutaneous antisepsis. The skin and subcutaneous tissues wer e infiltrated with local anesthetic solution. With CT guidance the right lower pole renal mass was localized. Biopsy was performed using the prescr ibed needle as above. Adequate hemostasis was obtained with compression at the puncture site. Follow-up CT scan reveals a small amount of perinephric hemorrhage and air. The patient tolerated the procedure well and there were no complications. The patient was returned to the Radiology Outpatient Unit in stable condition. CONCLUSION: Uncomplicated CT guided biopsy of the right lower pole renal mass. Omar Nuno MD on March 24, 2017 at 9:36 Board Certified Radiologist. This report was verified electronically.
[2017-03-24] MEDS ORDERED: HYDROmorphone HCL 2 MG TAB PO PRN (09:45)
== END 2017-03-24 13:50 | disposition home or self-care (01) ==
LOC: HRAD 06:22 → HRIP 06:27 → HRAD 13:50
PROVIDERS: ATTEND Internal Medicine Hematology & Oncology
DX: N28.89 Other specified disorders of kidney and ureter (principal); I10 Essential (primary) hypertension; J44.9 Chronic obstructive pulmonary disease, unspecified; I48.91 Unspecified atrial fibrillation; H54.42 Blindness, left eye, normal vision right eye; Z88.8 Allergy status to other drugs, medicaments and biological substances; Z85.118 Personal history of other malignant neoplasm of bronchus and lung; Z88.2 Allergy status to sulfonamides
CPT/HCPCS: 50200; 77012; 85025; 85610; 85730; 88305; 88341; 88342; J2250; J3010

== ENCOUNTER 2017-06-23 06:46 | Day surgery (SDC) | payer MEDICAID ==
[~2017-06-23] VITALS: Ht 165.1 cm; Wt 65.0 kg
[~2017-06-23 06:46] MED LIST changes: -AZIT500T2 PO; -CEFT500T3 PO; +CEFU1TAB20 PO; +PROC10TA PO
[2017-06-23 07:14] VITALS: BP 142/72; PULSE 94; RESP 34; TEMP 98.2; O2SAT 77
[2017-06-23 07:16] VITALS: RESP 26; O2SAT 95
[2017-06-23 07:49] LABS: AUTOMATED NEUTROPHIL # 3.5 TH/MM3 (1.8-7.7); BASOPHIL # 0.1 TH/MM3 (0-0.2); BASOPHIL % 1.2 % (0.0-2.0); EOSINOPHIL # 0.2 TH/MM3 (0-0.4); EOSINOPHIL % 4.6 % (0.0-4.0); HEMATOCRIT 39.2 % (35.0-46.0); HEMO FLAGS DIFF FINAL; LYMPH % 11.5 % (9.0-44.0); LYMPHOCYTE # 0.6 TH/MM3 (1.0-4.8); MEAN CELL VOLUME 84.2 FL (80.0-100.0); MEAN CORPUSCULAR HEMOGLOBIN 26.5 PG (27.0-34.0); MEAN CORPUSCULAR HGB CONC 31.5 % (32.0-36.0); MONO % 13.9 % (0.0-8.0); NEUT % 68.8 % (16.0-70.0); PLATELET COUNT 317 TH/MM3 (150-450); RED BLOOD COUNT 4.66 MIL/MM3 (4.00-5.30); RED CELL DISTRIBUTION WIDTH 15.8 % (11.6-17.2); WHITE BLOOD COUNT 5.1 TH/MM3 (4.0-11.0)
[2017-06-23 07:58] LABS: APTT (PATIENT) 25.7 SEC (24.3-30.1); INTERNATIONAL NORMALIZED RATIO 0.9 RATIO; PROTHROMBIN TIME - PATIENT 10.4 SEC (9.8-11.6)
[2017-06-23 08:11] LABS: BICARBONATE 34.8 MEQ/L (21.0-32.0)
[2017-06-23 10:11] VITALS: BP 142/72; PULSE 84; RESP 26; TEMP 98; O2SAT 93
[2017-06-23 10:26] VITALS: BP 122/71; PULSE 84; RESP 24; O2SAT 95
[2017-06-23 10:41] VITALS: BP 116/66; PULSE 83; RESP 24; O2SAT 94
--- NOTE | 2017-06-23 10:43 | RADRPT ---
EXAM DATE/TIME: 06/23/2017 10:28 [facility] COMPARISON: CHEST SINGLE AP, March 03, 2017, 15:37. INDICATIONS : S/p right side thoracentesis. MEDICAL HISTORY : Carcinoma, lung. Cardiovascular disease. Hypertension. COPD,CHF, Hep C, Cervical cancer, Seizures . SURGICAL HISTORY : None. ENCOUNTER: Initial ACUITY: 1 day PAIN SCORE: 0/10 LOCATION: Right chest FINDINGS: The patient is post right thoracentesis. There is no pneumothorax. There is significant reduction in the bilateral fluid. There is continued atelectasis in the right middle lobe. The port is in excellen t position. There is mild hyperinflation of the left lung. The bony structures are intact. CONCLUSION: 1. No pneumothorax following right thoracentesis. Stevie Yu MD on June 23, 2017 at 10:40 Board Certified Radiologist. This report was verified electronically.
[2017-06-23 11:25] LABS: TOTAL PROTEIN,PLEURAL FLUID 3.3 GM/DL
[2017-06-23 11:50] LABS: PLEURAL FLUID LYMPHS 92 %
--- NOTE | 2017-06-25 13:17 | MR ---
cc: GUIDO CALDERÓN DATE: 06/23/2017. PREOPERATIVE DIAGNOSIS Right pleural effusion. PROCEDURE PERFORMED: Right thoracentesis. POSTOPERATIVE DIAGNOSIS: Right pleural effusion. ANESTHESIA: 1% Xylocaine. PROCEDURAL PHYSICIAN: Guido Calderón MD. DESCRIPTION OF THE PROCEDURE AND FINDINGS: The patient's right posterior back was prepped with chlorhexidine solution and following this sterile drapes were applied. 1% Xylocaine was then injected to the intercostal space and the posterior axillary line after which a small incision was made with a scalpel blade. Following this, a 14 gauge catheter was inserted into the pleural space and this was connected to a vacuum bottle. Approximately 1200 cc of serosanguineous fluid was aspirated at which time the flow stopped. The patient tolerated the procedure well. Guido Calderón MD JKENNY/KAMILA /10:12 AM /1:07 PM
== END 2017-06-23 12:25 | disposition home or self-care (01) ==
LOC: HRAD 06:46 → HRIP 06:51 → HRAD 12:25
DX: J90 Pleural effusion, not elsewhere classified (principal); C34.90 Malignant neoplasm of unspecified part of unspecified bronchus or lung; I11.0 Hypertensive heart disease with heart failure; I50.9 Heart failure, unspecified; J44.9 Chronic obstructive pulmonary disease, unspecified; R56.9 Unspecified convulsions; Z01.818 Encounter for other preprocedural examination
CPT/HCPCS: 32554; 71010; 80048; 82150; 82945; 83615; 83986; 84157; 85025; 85610; 85730; 87015; 87070; 87102; 87116; 87205; 87206; 88112; 88305; 89051

== ENCOUNTER 2017-08-13 16:32 | Emergency (ER) | payer MEDICAID ==
[~2017-08-13] VITALS: Ht 162.6 cm; Wt 74.3 kg
[2017-08-13 16:42] VITALS: BP 172/75; PULSE 73; RESP 26; TEMP 98.7; O2SAT 88
[2017-08-13] MEDS ORDERED: ALPR.5 PO (16:54)
[2017-08-13] MEDS ORDERED: PRED5TAB PO (16:54)
[2017-08-13] MEDS ORDERED: AMLO5TAB2 PO (16:54)
[2017-08-13 17:10] VITALS: O2SAT 94
[2017-08-13 17:15] VITALS: O2SAT 96
[2017-08-13] MEDS ORDERED: AZITHROMYCIN INJ 500 MG in SODIUM CHLOR 0.9% 250 ML INJ 250 ML IV ONE (17:15)
[2017-08-13] MEDS ORDERED: methylPREDNISolone SOD SUCC 125 MG/2 ML VIAL IV PUSH ONE (17:15)
[2017-08-13] MEDS ORDERED: cefTRIAXone INJ 2,000 MG in SODIUM CHLORIDE 0.9% INJ 100 ML IV ONE (17:15)
[2017-08-13] MEDS ORDERED: SODIUM CHLORIDE 0.9% FLUSH 10 ML FLUSH IVF PRN (17:15)
[2017-08-13] MEDS: RESP: ALBUTEROL 2.5 MG/IPRATROPIUM 0.5 MG NEB (SCH) INH (17:15)
[2017-08-13 17:28] LABS: AUTOMATED NEUTROPHIL # 5.6 TH/MM3 (1.8-7.7); BASOPHIL % 0.6 % (0.0-2.0); EOSINOPHIL # 0.1 TH/MM3 (0-0.4); EOSINOPHIL % 1.8 % (0.0-4.0); HEMATOCRIT 39.2 % (35.0-46.0); HEMO FLAGS DIFF FINAL; LYMPH % 12.9 % (9.0-44.0); LYMPHOCYTE # 0.9 TH/MM3 (1.0-4.8); MEAN CELL VOLUME 83.2 FL (80.0-100.0); MEAN CORPUSCULAR HEMOGLOBIN 27.5 PG (27.0-34.0); MONO % 10.2 % (0.0-8.0); NEUT % 74.5 % (16.0-70.0); PLATELET COUNT 338 TH/MM3 (150-450); RED BLOOD COUNT 4.72 MIL/MM3 (4.00-5.30); RED CELL DISTRIBUTION WIDTH 14.8 % (11.6-17.2); WHITE BLOOD COUNT 7.3 TH/MM3 (4.0-11.0)
[2017-08-13 17:37] LABS: POTASSIUM 3.9 MEQ/L (3.5-5.1)
[2017-08-13 17:40] LABS: BICARBONATE 32.8 MEQ/L (21.0-32.0)
[2017-08-13 17:53] VITALS: BP 128/68; PULSE 82; RESP 26; TEMP 98.9; O2SAT 96
--- NOTE | 2017-08-13 18:15 | RADRPT ---
EXAM DATE/TIME: 08/13/2017 17:38 [facility] COMPARISON: CHEST SINGLE AP, June 23, 2017, 10:28. INDICATIONS : Short of breath. MEDICAL HISTORY : Carcinoma, lung. Cholelithiasis. SURGICAL HISTORY : None. ENCOUNTER: Initial ACUITY: 2 weeks PAIN SCORE: 6/10 LOCATION: Bilateral chest FINDINGS: Increasing opacity is identified in the right lung base and along the right lateral pleural margin. Left lung are main well expanded and clear. Heart remains normal in size. Lablyf-f-Boaz catheter is in stable position. CONCLUSION: Increasing right basilar opacity indicating increasing pleural effusion and underlying lung consolida tion. Rex Hatch MD on August 13, 2017 at 18:12 Board Certified Radiologist. This report was verified electronically.
--- NOTE | 2017-08-13 18:34 | PD ---
HPI . Shortness of breath Chief Complaint: Respiratory Symptoms Time Seen by Provider: 16:53 Travel History International Travel<30 days: No Contact w/Intl Traveler<30days: No Traveled to known affect area: No History of Present Illness HPI This patient has a history of COPD and lung cancer. She is on chemotherapy and radiation therapy for her lung cancer. She presents with about a 2 day history of increased difficulty breathing associated with a MAXIMUM TEMPERATURE of 102.7. She also reports poor appetite and nausea. The patient's daughter states that she's been complaining with anterior rib cage pain for the last couple weeks. Her shortness of breath is mild and there is no modifying factor. PFSH Past Medical History Hx Anticoagulant Therapy: Yes (LOW DOSE ASPIRIN) Arthritis: Yes Asthma: No Autoimmune Disease: No Anxiety: Yes Depression: No Heart Rhythm Problems: Yes (Afib) Cancer: Yes (CERVICAL, LUNG) Cardiovascular Problems: Yes (htn) High Cholesterol: No Chemotherapy: Yes (6 MONTHS AGO LAST TREATMENT) Congestive Heart Failure: Yes (Last hospitalization) COPD: Yes Cerebrovascular Accident: No Coronary Artery Disease: No Diabetes: No Diminished Hearing: No Endocrine: No Gastrointestinal Disorders: Yes (vomitting) GERD: Yes Genitourinary: Yes Hypertension: Yes Immune Disorder: No Implanted Vascular Access Dvce: Yes Medical other: Yes (Patient is on 2L nc at home. ) Musculoskeletal: Yes Neurologic: No Psychiatric: No Respiratory: Yes ([id number]) Immunizations Current: Yes Seizures: Yes (in past drug related) Sickle Cell Disease: No Tetanus Vaccination: > 5 Years Influenza Vaccination: Yes PNEUMOCCOCAL Vaccine (Year): 2 Menopausal: Yes : 3 Para: 2 Miscarriage: 1 Dilation and Curettage (D&C): Yes Past Surgical History AICD: No Body Medical Devices: RIGHT PORT CHEST WALL Eye Surgery: Yes (CATARAC AND RETINAL SURGERY IN THE LEFT EYE) Gynecologic Surgery: Yes (CERVICAL CONE SURGERY FOR CANCER) Joint Replacement: No Pacemaker: No Other Surgery: Yes Family History Family Myocardial Infarction: Yes (SISTER MASSIVE CA) Social History Alcohol Use: No Tobacco Use: No (nicotine patch) Substance Use: No Allergies-Medications (Allergen,Severity, Reaction): Coded Allergies: Sulfa (Sulfonamide Antibiotics) (Unverified Allergy, Severe, HIVES, ) ketorolac (Unverified Allergy, Mild, HIVES, 08/13/17) Uncoded Allergies: FLU VACCINCE (Allergy, Unknown, 08/13/17) Reported Meds & Prescriptions Reported Meds & Active Scripts Active Ondansetron (Ondansetron HCl) 8 Mg Tab 8 Mg PO TID Oxygen tank (Oxygen) 1 Ea Tank 2 Liter DIANE.CANULA CONTINUOUS Oxygen Concentrator Portable Gaseous 2 L/min via Nasal Cannula Continuous For 99 months Metoprolol Tartrate 25 Mg Tab 25 Mg PO Q12HR Aspirin EC (Aspirin) 81 Mg Tabdr 81 Mg PO DAILY Symbicort Inh (Budesonide/Formoterol Fumarate) 160-4.5 Mcg/Act Aero 2 Puff INH Q12HR Ventolin Hfa 18 GM Inh (Albuterol Sulfate) 90 Mcg/Act Aer 1 Puff INH Q4H PRN Reported Prednisone 5 Mg Tab 5 Mg PO BID Amlodipine (Amlodipine Besylate) 5 Mg Tab 5 Mg PO DAILY Xanax (Alprazolam) 0.5 Mg Tab 0.5 Mg PO Q8H PRN Prochlorperazine Maleate 10 Mg Tab 10 Mg PO Q6H PRN Methadone Intensol Liq (Methadone HCl) 10 Mg/Ml Conc 170 Mg PO DAILY Review of Systems Except as stated in HPI: all other systems reviewed are Neg General / Constitutional: Positive: Fever, Chills Cardiovascular: Positive: Chest Pain or Discomfort Respiratory: Positive: Cough, Shortness of Breath Physical Exam Narrative GENERAL: Awake and alert. SKIN: warm/dry. No rashes. HEAD: Normocephalic. Atraumatic. EYES: Right eye looks normal. Left eye is opaque. ENT: No nasal bleeding or discharge. Mucous membranes pink and moist. NECK: Trachea midline. Full range of motion without pain.. CARDIOVASCULAR: Regular rate and rhythm. Heart sounds are normal. RESPIRATORY: No accessory muscle use. Diffuse, coarse expiratory wheezing. Breath sounds are mildly diminished. GASTROINTESTINAL: Abdomen soft. Nontender. Bowel sounds present. Nondistended. MUSCULOSKELETAL: No obvious deformities. NEUROLOGICAL: Awake and alert. No obvious cranial nerve deficits. Motor grossly within normal limits. Normal speech. PSYCHIATRIC: Appropriate mood and affect; insight and judgment normal. Data Data Last Documented VS Vital Signs Date Time Temp Pulse Resp B/P (MAP) Pulse Ox O2 Delivery O2 Flow Rate FiO2 08/13/17 17:53 98.9 82 26 128/68 (88) 96 Nasal Cannula 2.00 Orders Orders Electrocardiogram (08/13/17 17:02) Basic Metabolic Panel (Bmp) (08/13/17 17:02) Complete Blood Count With Diff (08/13/17 17:02) Lactic Acid Sepsis Protocol (08/13/17 17:02) Influenzae A/B Antigen (08/13/17 17:) Blood Culture (08/13/17 17:) Chest, Single Ap (08/13/17:) Ecg Monitoring (08/13/17 17:) Iv Access Insert/Monitor (08/13/17 17:) Oximetry (08/13/17 17:) Sodium Chloride 0.9% Flush (Ns Flush) (08/13/17:15) Ceftriaxone Inj (Rocephin Inj) (08/13/17:15) Azithromycin Inj (Zithromax Inj) (08/13/17 17:15) Albuterol-Ipratropium Neb (Duoneb Neb) (08/13/17:15) Methylprednisolone So Succ Inj (Solumedr (08/13/17 17:15) Labs Laboratory Tests Test 08/13/17 17:05 08/13/17 17:10 White Blood Count 7.3 TH/MM3 Red Blood Count 4.72 MIL/MM3 Hemoglobin 12.9 GM/DL Hematocrit 39.2 % Mean Corpuscular Volume 83.2 FL Mean Corpuscular Hemoglobin 27.5 PG Mean Corpuscular Hemoglobin Concent 33.0 % Red Cell Distribution Width 14.8 % Platelet Count 338 TH/MM3 Mean Platelet Volume 6.6 FL Neutrophils (%) (Auto) 74.5 % Lymphocytes (%) (Auto) 12.9 % Monocytes (%) (Auto) 10.2 % Eosinophils (%) (Auto) 1.8 % Basophils (%) (Auto) 0.6 % Neutrophils # (Auto) 5.6 TH/MM3 Lymphocytes # (Auto) 0.9 TH/MM3 Monocytes # (Auto) 0.7 TH/MM3 Eosinophils # (Auto) 0.1 TH/MM3 Basophils # (Auto) 0.0 TH/MM3 CBC Comment DIFF FINAL Differential Comment Blood Urea Nitrogen 6 MG/DL Creatinine 0.85 MG/DL Random Glucose 99 MG/DL Calcium Level 8.3 MG/DL Sodium Level 133 MEQ/L Potassium Level 3.9 MEQ/L Chloride Level 94 MEQ/L Carbon Dioxide Level 32.8 MEQ/L Anion Gap 6 MEQ/L Estimat Glomerular Filtration Rate 68 ML/MIN Lactic Acid Level 1.3 mmol/L MDM Medical Decision Making Medical Screen Exam Complete: Yes Emergency Medical Condition: Yes Medical Record Reviewed: Yes (medical history significant for COPD, previous pneumonia and lung cancer.) Interpretation(s) EKG shows a sinus rhythm with no acute ischemic change. Differential Diagnosis Differential diagnosis includes but is not limited to viral respiratory illness , bronchitis, pneumonia, allergies, CHF, asthma/COPD. Narrative Course This patient presents for evaluation of cough. She has a history of COPD and lung cancer. CBC & BMP Diagram 08/13/17 17:05 Calcium Level 8.3 L LA 1.3 CXR>>Increasing right basilar opacity indicating increasing pleural effusion and underlying lung consolidation. I will discharge her on Zithromax. Close follow-up with Dr. Braxton. Physician Communication Physician Communication Case discussed with Dr. Marie who feels that this can be treated as an OP. Diagnosis Primary Impression: Opacity noted on imaging study Additional Impressions: Non-small cell carcinoma of right lung, stage 3 COPD with acute exacerbation Additional Instructions: Increase your use of ProAir. Med/Other Pt SpecificInfo: Prescription(s) given Scripts Azithromycin (Zithromax) 250 Mg Tab 250 MG PO DAILY for Infection for 4 Days, #4 TAB 0 Refills Prov: Shanna Chapman MD 08/13/17 Disposition: 01 DISCHARGE HOME Condition: Stable Shanna Chapman MD Aug 13, 2017 18:34
[2017-08-13] MEDS ORDERED: ZITH250T PO (18:44)
[2017-08-13 19:43] VITALS: BP 100/83
--- NOTE | 2017-08-14 07:52 | EKG ---
Date Performed: 08/13/2017 Time Performed: 17:22:23 PTAGE: 61 years EKG: Marked baseline artifact present Sinus rhythm POSSIBLE LEFT ATRIAL ENLARGEMENT Nonspecific T wave changes BORDERLINE ECG I would repeat EKG PREVIOUS TRACING : 03/04/2017 03.34 DOCTOR: Colt Simpson Interpretating Date/Time 08/14/2017 07:51:43
== END 2017-08-13 19:46 | disposition home or self-care (01) ==
LOC: PHED 16:32
DX: C34.91 Malignant neoplasm of unspecified part of right bronchus or lung (principal); J44.1 Chronic obstructive pulmonary disease with (acute) exacerbation; J90 Pleural effusion, not elsewhere classified
CPT/HCPCS: 71010; 80048; 83605; 85025; 87040; 87804; 93005; 94640; 94664; 96365; 96367; 96375; 99285; J0456; J0696; J2930; J7050

== ENCOUNTER 2017-08-29 21:16 | Inpatient (IN) | payer MEDICAID ==
[~2017-08-29] VITALS: Ht 162.6 cm; Wt 66.8 kg
[2017-08-29 21:16] VITALS: BP 156/93; PULSE 99; RESP 24; TEMP 98.6; O2SAT 87
[~2017-08-29 21:16] MED LIST changes: +ALPR.5 PO; -AMLO5 PO; +AMLO5TAB2 PO; -ASPI81TA11 PO; +ASPI81TA23 PO; -CEFU1TAB20 PO; -ONDA1TAB17 PO; +ONDA8TAB7 PO; -PRED5PAK PO; +PRED5TAB PO; -TEMA7.5C9 PO; +ZITH250T PO
[2017-08-29 21:20] VITALS: O2SAT 95
[2017-08-29] MEDS ORDERED: SODIUM CHLOR 0.9% 1000 ML INJ 1,000 ML IV SCH ×2 (21:21→23:50)
[2017-08-29 21:22] VITALS: RESP 20; O2SAT 98
[2017-08-29] MEDS ORDERED: SODIUM CHLORIDE 0.9% FLUSH 10 ML FLUSH IV FLUSH PRN (21:30)
[2017-08-29] MEDS ORDERED: ONDANSETRON HCL 4 MG/2 ML VIAL IVP ONE (21:30)
[2017-08-29 22:04] LABS: AUTOMATED NEUTROPHIL # 8.9 TH/MM3 (1.8-7.7); BASOPHIL % 0.3 % (0.0-2.0); EOSINOPHIL % 0.5 % (0.0-4.0); HEMATOCRIT 42.2 % (35.0-46.0); HEMOGLOBIN 14.1 GM/DL (11.6-15.3); LYMPH % 6.5 % (9.0-44.0); LYMPHOCYTE # 0.7 TH/MM3 (1.0-4.8); MEAN CELL VOLUME 84.1 FL (80.0-100.0); MEAN CORPUSCULAR HGB CONC 33.3 % (32.0-36.0); MEAN PLATELET VOLUME 6.8 FL (7.0-11.0); MONO % 6.7 % (0.0-8.0); MONOCYTE # 0.7 TH/MM3 (0-0.9); PLATELET COUNT 331 TH/MM3 (150-450); RED BLOOD COUNT 5.02 MIL/MM3 (4.00-5.30); RED CELL DISTRIBUTION WIDTH 14.9 % (11.6-17.2); WHITE BLOOD COUNT 10.4 TH/MM3 (4.0-11.0)
[2017-08-29 22:21] LABS: ALBUMIN 3.5 GM/DL (3.4-5.0); ALT (GPT) 19 U/L (10-53); AST (GOT) 23 U/L (15-37); BICARBONATE 31.3 MEQ/L (21.0-32.0); BLOOD UREA NITROGEN 6 MG/DL (7-18); CALCIUM 8.8 MG/DL (8.5-10.1); CHLORIDE 93 MEQ/L (98-107); CREATININE 0.73 MG/DL (0.50-1.00); GLOMERULAR FILTRATION RATE 81 ML/MIN (>89); GLUCOSE,RANDOM 98 MG/DL (74-106); LIPASE 177 U/L (73-393); SODIUM (NA) 132 MEQ/L (136-145)
[2017-08-29 22:22] LABS: ALKALINE PHOSPHATASE 87 U/L (45-117); TOTAL BILIRUBIN ADULT 0.3 MG/DL (0.2-1.0); TOTAL PROTEIN 8.4 GM/DL (6.4-8.2)
[2017-08-29 22:24] VITALS: BP 162/104; PULSE 96; RESP 16; O2SAT 100
--- NOTE | 2017-08-29 23:56 | PD ---
HPI Chief Complaint: Respiratory Symptoms Time Seen by Provider: 21:21 Travel History International Travel<30 days: No Contact w/Intl Traveler<30days: No Traveled to known affect area: No History of Present Illness HPI 61 yo F c/o shortness of breath. Sig other reports carpopedal spasms bilat hands and feet. just prior to ER arrival. Pt has lung cancer with most recent CTX 6 months prior. No fever. No cough. Pt reports feeling well however sig other reports patient appears unwell. Severity moderate. Timing constant. History upon arrival somewhat limited 2/2 patient condition. PFSH Past Medical History Hx Anticoagulant Therapy: Yes (LOW DOSE ASPIRIN) Arthritis: Yes Asthma: No Autoimmune Disease: No Anxiety: Yes Depression: No Heart Rhythm Problems: Yes (Afib) Cancer: Yes (CERVICAL, LUNG) Cardiovascular Problems: Yes (htn) High Cholesterol: No Chemotherapy: Yes (6 MONTHS AGO LAST TREATMENT) Congestive Heart Failure: Yes (Last hospitalization) COPD: Yes Cerebrovascular Accident: No Coronary Artery Disease: No Diabetes: No Diminished Hearing: No Endocrine: No Gastrointestinal Disorders: Yes (vomitting) GERD: Yes Genitourinary: Yes Hypertension: Yes Immune Disorder: No Implanted Vascular Access Dvce: Yes Medical other: Yes (Patient is on 2L nc at home. ) Musculoskeletal: Yes Neurologic: No Psychiatric: No Respiratory: Yes (COPD, [id number]) Immunizations Current: Yes Seizures: Yes (in past drug related) Sickle Cell Disease: No Tetanus Vaccination: Unknown Influenza Vaccination: Yes PNEUMOCCOCAL Vaccine (Year): 2 Menopausal: Yes : 3 Para: 2 Miscarriage: 1 Dilation and Curettage (D&C): Yes Past Surgical History AICD: No Body Medical Devices: RIGHT PORT CHEST WALL Eye Surgery: Yes (CATARAC AND RETINAL SURGERY IN THE LEFT EYE) Gynecologic Surgery: Yes (CERVICAL [facility] SURGERY FOR CANCER) Joint Replacement: No Pacemaker: No Other Surgery: Yes Family History Family Myocardial Infarction: Yes (SISTER MASSIVE DE) Social History Alcohol Use: No Tobacco Use: No (nicotine patch) Substance Use: No Allergies-Medications (Allergen,Severity, Reaction): Coded Allergies: Sulfa (Sulfonamide Antibiotics) (Unverified Allergy, Severe, HIVES, ) ketorolac (Unverified Allergy, Mild, HIVES, 08/13/17) Uncoded Allergies: FLU VACCINCE (Allergy, Unknown, 08/13/17) Reported Meds & Prescriptions Reported Meds & Active Scripts Active Zithromax (Azithromycin) 250 Mg Tab 250 Mg PO DAILY 4 Days Ondansetron (Ondansetron HCl) 8 Mg Tab 8 Mg PO TID Oxygen tank (Oxygen) 1 Ea Tank 2 Liter DIANE.CANULA CONTINUOUS Oxygen Concentrator Portable Gaseous 2 L/min via Nasal Cannula Continuous For 99 months Metoprolol Tartrate 25 Mg Tab 25 Mg PO Q12HR Aspirin EC (Aspirin) 81 Mg Tabdr 81 Mg PO DAILY Symbicort Inh (Budesonide/Formoterol Fumarate) 160-4.5 Mcg/Act Aero 2 Puff INH Q12HR Ventolin Hfa 18 GM Inh (Albuterol Sulfate) 90 Mcg/Act Aer 1 Puff INH Q4H PRN Reported Prednisone 5 Mg Tab 5 Mg PO BID Amlodipine (Amlodipine Besylate) 5 Mg Tab 5 Mg PO DAILY Xanax (Alprazolam) 0.5 Mg Tab 0.5 Mg PO Q8H PRN Prochlorperazine Maleate 10 Mg Tab 10 Mg PO Q6H PRN Methadone Intensol Liq (Methadone HCl) 10 Mg/Ml Conc 170 Mg PO DAILY Review of Systems Except as stated in HPI: all other systems reviewed are Neg General / Constitutional: No: Fever Cardiovascular: No: Chest Pain or Discomfort Respiratory: Positive: Cough, Shortness of Breath Physical Exam Narrative GENERAL: 61-year-old female pleasant mild distress of unclear etiology SKIN: Focused skin assessment warm/dry. HEAD: Atraumatic. Normocephalic. EYES: Pupils equal and round. No scleral icterus. No injection or drainage. ENT: No nasal bleeding or discharge. Mucous membranes pink and moist. NECK: Trachea midline. No JVD. CARDIOVASCULAR: Tachycardia. Regular rhythm. RESPIRATORY: Lungs are clear. No significant tachypnea. GASTROINTESTINAL: Abdomen soft, non-tender, nondistended. Hepatic and splenic margins not palpable. MUSCULOSKELETAL: No obvious deformities. No clubbing. No cyanosis. No edema. NEUROLOGICAL: Awake and alert. No obvious cranial nerve deficits. Motor grossly within normal limits. Normal speech. PSYCHIATRIC: Appropriate mood and affect; insight and judgment normal. Data Data Last Documented VS Vital Signs Date Time Temp Pulse Resp B/P (MAP) Pulse Ox O2 Delivery O2 Flow Rate FiO2 08/29/17 22:24 96 16 162/104 (123) 100 Nasal Cannula 3.00 08/29/17 21:16 98.6 Vital signs reviewed Orders Orders Complete Blood Count With Diff (08/29/17 21:21) Comprehensive Metabolic Panel (08/29/17 21:21) Lipase (08/29/17 21:21) Lactic Acid (08/29/17 21:21) Urinalysis - C+S If Indicated (08/29/17 21:21) Iv Access Insert/Monitor (08/29/17 21:21) Ecg Monitoring (08/29/17 21:21) Oximetry (08/29/17 21:21) Ondansetron Inj (Zofran Inj) (08/29/17 21:30) Sodium Chlor 0.9% 1000 Ml Inj (Ns 1000 M (08/29/17 21:21) Sodium Chloride 0.9% Flush (Ns Flush) (08/29/17 21:30) Electrocardiogram (08/29/17 21:21) Ammonia (08/29/17 23:50) Thyroid Stimulating Hormone (08/29/17 23:50) Ct Brain W/O Iv Contrast(Rout) (08/29/17 23:50) Sodium Chloride 0.9% Flush (Ns Flush) (08/30/17 00:00) Sodium Chlor 0.9% 1000 Ml Inj (Ns 1000 M (08/29/17 23:50) Drug Screen, Random Urine (08/29/17 23:50) Alcohol (Ethanol) (08/29/17 23:50) Tylenol (Acetaminophen) (08/29/17 23:50) Salicylates (Aspirin) (08/29/17 23:50) Cath For Specimen (08/29/17 23:50) Troponin I (08/30/17 00:03) Chest, Single Ap (08/30/17 ) Admit Order (Ed Use Only) (08/30/17 ) Delinquent Tax Collector / Telemetry MARBELLA.Q8H (08/30/17 01:42) Diet Npo (08/30/17 Breakfast) Activity Bed Rest (08/30/17 01:42) Notify Dr: Other (08/30/17 01:42) Labs Laboratory Tests Test 08/29/17 21:30 08/29/17 21:50 08/30/17 00:03 08/30/17 00:10 Lactic Acid Level 1.0 mmol/L White Blood Count 10.4 TH/MM3 Red Blood Count 5.02 MIL/MM3 Hemoglobin 14.1 GM/DL Hematocrit 42.2 % Mean Corpuscular Volume 84.1 FL Mean Corpuscular Hemoglobin 28.0 PG Mean Corpuscular Hemoglobin Concent 33.3 % Red Cell Distribution Width 14.9 % Platelet Count 331 TH/MM3 Mean Platelet Volume 6.8 FL Neutrophils (%) (Auto) 86.0 % Lymphocytes (%) (Auto) 6.5 % Monocytes (%) (Auto) 6.7 % Eosinophils (%) (Auto) 0.5 % Basophils (%) (Auto) 0.3 % Neutrophils # (Auto) 8.9 TH/MM3 Lymphocytes # (Auto) 0.7 TH/MM3 Monocytes # (Auto) 0.7 TH/MM3 Eosinophils # (Auto) 0.0 TH/MM3 Basophils # (Auto) 0.0 TH/MM3 CBC Comment DIFF FINAL Differential Comment Blood Urea Nitrogen 6 MG/DL Creatinine 0.73 MG/DL Random Glucose 98 MG/DL Total Protein 8.4 GM/DL Albumin 3.5 GM/DL Calcium Level 8.8 MG/DL Alkaline Phosphatase 87 U/L Aspartate Amino Transf (AST/SGOT) 23 U/L Alanine Aminotransferase (ALT/SGPT) 19 U/L Total Bilirubin 0.3 MG/DL Sodium Level 132 MEQ/L Potassium Level 4.0 MEQ/L Chloride Level 93 MEQ/L Carbon Dioxide Level 31.3 MEQ/L Anion Gap 8 MEQ/L Estimat Glomerular Filtration Rate 81 ML/MIN Lipase 177 U/L Ammonia 23 MCMOL/L Troponin I LESS THAN 0.02 NG/ML Thyroid Stimulating Hormone 3rd Gen 0.414 uIU/ML Salicylates Level LESS THAN 1.7 MG/DL Urine Opiates Screen NEG Acetaminophen Level LESS THAN 2.0 MCG/ML Urine Barbiturates Screen NEG Urine Amphetamines Screen NEG Urine Benzodiazepines Screen POS Urine Cocaine Screen NEG Urine Cannabinoids Screen NEG Ethyl Alcohol Level LESS THAN 3 MG/DL Urine Color YELLOW Urine Turbidity CLEAR Urine pH 6.5 Urine Specific [place] 1.012 Urine Protein NEG mg/dL Urine Glucose (UA) NEG mg/dL Urine Ketones NEG mg/dL Urine Occult Blood NEG Urine Nitrite NEG Urine Bilirubin NEG Urine Urobilinogen LESS THAN 2.0 MG/DL Urine Leukocyte Esterase NEG Urine RBC 1 /hpf Urine WBC LESS THAN 1 /hpf Urine Transitional Epithelial Cells <1 /hpf Microscopic Urinalysis Comment CULT NOT INDICATED MDM Medical Decision Making Medical Screen Exam Complete: Yes Emergency Medical Condition: Yes Medical Record Reviewed: Yes Differential Diagnosis COPD, CHF, pneumonia, UTI, sepsis, and electron imbalance, anemia, polypharmacy Narrative Course CBC & BMP Diagram 08/29/17 21:50 Total Protein 8.4 H, Albumin 3.5, Calcium Level 8.8, Alkaline Phosphatase 87, Aspartate Amino Transf (AST/SGOT) 23, Alanine Aminotransferase (ALT/SGPT) 19, Total Bilirubin 0.3 Lactic acid 1.0 Lipase 177 UTOX: positive for benzos EtOH < 3 The patient was reassessed at about 1150pm and appeared very sleepy. She denies chest pain shortness of breath nausea dizziness fever however has been again reports her to be very unwell appearance. Last 24 hours Impressions Chest X-Ray 08/30/17 0000 Signed Impressions: Service Date/Time: Wednesday, August 30, 2017 00:54 - CONCLUSION: Stable chest appearance Omar Arnold MD Head CT 08/29/17 2350 Signed Impressions: Service Date/Time: Wednesday, August 30, 2017 01:08 - CONCLUSION: Right thalamic hematoma with intraventricular blood and early dilatation of the lateral ventricles. Omar Arnold MD CT shows intraparenchymal bleed. No focal neuro deficit. Speaking full sentences though somewhat slow to respond to inquiries ? benzodiazepine ingestion. d/w Dr Tejeda who advised [facility]/anesthesiology tech management d/w Dr Parsons for anesthesiology tech service d/w sig other and with patient; pt requests intubation/resuscitative measures Critical Care Narrative Aggregate critical care time was 45 minutes. Time to perform other separately billable procedures was not included in the critical care time. My time did not include minutes spent treating any other patients simultaneously or on activities that did not directly contribute to the patient's treatment. The services I provided to this patient were to treat and/or prevent clinically significant deterioration that could result in: Herniation, permanent neurologic injury I provided critical care services requiring my management, as noted below: Chart data review, documentation time, medication orders and management, vital sign assessments/reviewing monitor data, ordering and reviewing lab tests, ordering and interpreting/reviewing x-rays and diagnostic studies, care of the patient and discussion of the patient with the admitting physicians. Diagnosis Primary Impression: Intraparenchymal hemorrhage of brain Additional Impressions: Shortness of breath Chronically on benzodiazepine therapy Admitting Information Admitting Physician Requests: Admit Stevie Roy MD Aug 29, 2017 23:56
[2017-08-30] VITALS (18 sets, daily range): BP systolic 121–154; BP diastolic 60–90; PULSE 80–96; RESP 18–28; TEMP 98.8–100.1; O2SAT 94–98
[2017-08-30] MEDS ORDERED: SODIUM CHLORIDE 0.9% FLUSH 5 ML FLUSH IV FLUSH PRN
[2017-08-30 00:35] LABS: BILIRUBIN, URINE NEG (NEG); BLOOD, URINE NEG (NEG); GLUCOSE,URINE NEG (NEG); KETONE, URINE NEG (NEG); NITRITE,URINE NEG (NEG); PH, URINE 6.5 (5.0-8.5); TRANSITIONAL EPI CELLS, URINE <1 /hpf; URINE COLOR YELLOW (YELLW/STRAW); URINE LEUKOCYTE ESTERASE NEG (NEG)
[2017-08-30 00:47] LABS: ACETAMINOPHEN LESS THAN 2.0 MCG/ML (10.0-30.0)
[2017-08-30 00:55] LABS: TROPONIN I LESS THAN 0.02 NG/ML (0.02-0.05)
--- NOTE | 2017-08-30 01:23 | RADRPT ---
EXAM DATE/TIME: 08/30/2017 01:08 [facility] COMPARISON: CT BRAIN W/O CONTRAST, January 25, 2017, 21:32. INDICATIONS : Altered mental status. RADIATION DOSE: 31.24 CTDIvol (mGy) MEDICAL HISTORY : Cardiovascular disease. Chronic obstructive pulmonary disease. Gastroesophageal reflux disease.Hypert ension. Renal calculi. Hepatitis C. Cervical cancer. Lung cancer. Seizure. SURGICAL HISTORY : None. ENCOUNTER: Initial ACUITY: 1 day PAIN SCALE: Non-responsive LOCATION: cranial TECHNIQUE: Multiple contiguous axial images were obtained of the head. Using automated exposure control and adj ustment of the mA and/or kV according to patient size, radiation dose was kept as low as reasonably a chievable to obtain optimal diagnostic quality images. DICOM format image data is available electro nically for review and comparison. FINDINGS: There is a 3.6 cm hematoma in the right thalamus. There is small volume of intraventricular blood, ma inly in the compressed third ventricle and in the fourth ventricle with some extension through the la teral apertures into the cerebellomedullary cisterns. There appears to be slight dilatation of the la teral ventricles. CONCLUSION: Right thalamic hematoma with intraventricular blood and early dilatation of the lateral ventricles. Omar Arnold MD on August 30, 2017 at 1:16 Board Certified Radiologist. This report was verified electronically.
--- NOTE | 2017-08-30 01:26 | RADRPT ---
EXAM DATE/TIME: 08/30/2017 00:54 [facility] COMPARISON: CHEST SINGLE AP, August 13, 2017, 17:38. CT BRAIN W/O CONTRAST, August 30, 2017, 1:08. INDICATIONS : Short of breath. MEDICAL HISTORY : Carcinoma, lung. Cholelithiasis. SURGICAL HISTORY : None. ENCOUNTER: Initial ACUITY: 1 day PAIN SCORE: Non-responsive. LOCATION: Bilateral chest FINDINGS: Right chest port is present in good position and is accessed. There is moderate right base pleural-pa renchymal opacity which appears grossly stable. Left lung remains clear. Accounting for rotation, car diac contours are unchanged. CONCLUSION: Stable chest appearance Omar Arnold MD on August 30, 2017 at 1:23 Board Certified Radiologist. This report was verified electronically.
[2017-08-30] MEDS ORDERED: BISACODYL 10 MG SUPP RECTAL PRN (02:15)
[2017-08-30] MEDS: INSULIN NovoLIN REGULAR SUPPLEMENTAL SCALE SQ SCH ×5 (02:15→21:38)
[2017-08-30] MEDS ORDERED: CHLORHEXIDINE GLUCONATE 2 % 1 PACK (2 CLOTHS) TOP PRN (02:15)
[2017-08-30] MEDS ORDERED: MAGNESIUM HYDROXIDE SUSP 30 ML CUP PO PRN (02:15)
[2017-08-30] MEDS ORDERED: DEXTROSE 50% IN WATER 50 ML VIAL(D50) IV PUSH PRN (02:15)
[2017-08-30] MEDS ORDERED: MISCELLANEOUS NURSING INFORMATION XX SCH (02:15)
[2017-08-30] MEDS ORDERED: SENNOSIDES 8.6 MG TAB PO PRN (02:15)
[2017-08-30] MEDS ORDERED: GLUCAGON 1 MG/ML VIAL OTHER PRN (02:15)
[2017-08-30] MEDS ORDERED: LACTULOSE SYRUP 20 GM/30 ML CUP PO PRN (02:15)
[2017-08-30] MEDS: SODIUM CHLOR 0.9% 1000 ML INJ 1,000 ML IV SCH ×2 (02:33→14:10)
[2017-08-30 02:52] LABS: PROTHROMBIN TIME - PATIENT 11.2 SEC (9.8-11.6)
[2017-08-30] MEDS: CHLORHEXIDINE GLUCONATE 2 % 1 PACK (2 CLOTHS) TOP SCH (04:00)
[2017-08-30] MEDS: ONDANSETRON HCL 4 MG/2 ML VIAL IV PUSH PRN ×3 (04:40→21:43)
[2017-08-30] MEDS: RESP: ALBUTEROL 2.5 MG/IPRATROPIUM 0.5 MG NEB (SCH) INH ×4 (05:00→20:57)
--- NOTE | 2017-08-30 08:39 | MH ---
cc: SPENSER SANCHEZ M.D. DATE OF ADMISSION: 08/30/2017 DATE OF 1955 HISTORY OF PRESENT ILLNESS The patient is a 61-year-old female with a past medical history of hypertension, COPD, non-small cell lung cancer Stage III-A. She presented to [facility] ED with a family member as she was not feeling well, reports being dizzy and lightheaded and unsteady gait. Also the patient has been sleeping a lot. On arrival to the ER she was hypertensive with systolic blood pressure in the 160s. No history of any cough or constitutional symptoms. The patient is status post chemotherapy a few months ago and being followed by Dr. Braxton from Oncology. She had a CT scan of the brain in the ER which showed right thalamic hematoma with intraventricular blood and early dilatation of the lateral ventricles. Dr. Tejeda from Neurosurgery was notified regarding the CT findings by the ED physician, Dr. Roy. The patient takes aspirin at home. She denies any history of liver disease. PAST MEDICAL HISTORY Significant for - 1. Ljd-rrtai-ywgn lung cancer, Stage III-A. 2. COPD. 3. Hepatitis. 4. Hypertension. 5. 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 PAST SURGICAL HISTORY 1. Previous right kidney biopsy. 2. Previous colonoscopy. 3. Cataract surgery. 4. Previous port placement. ALLERGIES SULFA. KETOROLAC. SOCIAL HISTORY Ex-smoker, nondrinker. REPORTED MEDICATIONS 1. Azithromycin. 2. Ventolin. 3. Lopressor. 4. Amlodipine. 5. Aspirin. 6. Symbicort. 7. Prednisone. FAMILY HISTORY Noncontributory. REVIEW OF SYSTEMS As per HPI. The rest of the review of systems limited as the patient is a poor historian. PHYSICAL EXAMINATION GENERAL: A 61-year-old female lying in bed in no acute respiratory distress. VITAL SIGNS: Afebrile, temperature 98.6, pulse of 96, respiratory rate 16, blood pressure 156/93. HEENT: Atraumatic, normocephalic. Pupils equal, round, reactive to light and accommodation Extraocular muscles intact. Conjunctivae pink. Nonicteric sclerae. Oral mucosa within normal. NECK: Supple. No JVD, adenopathy or thyromegaly. Trachea in the midline. CARDIOVASCULAR EXAM: Regular rate and rhythm. Normal S1-S2. No murmurs, rubs or gallops noted. PULMONARY EXAM: Bilateral equal entry. No rales or wheezing. ABDOMEN: Soft, nontender, no distension. Positive bowel sounds. EXTREMITIES: No cyanosis, clubbing or edema. NEURO: No focal sensory deficit. LABORATORY DATA WBC 10.4, hemoglobin 14, hematocrit 42, platelet count 331. Sodium 132, potassium 4, chloride 93, CO2 31, BUN 6, creatinine 0.73, glucose 98. Troponin less than 0.02. Lactic acid 1. Urine drug screen positive for benzodiazepines. Urinalysis negative for nitrite, leukocyte esterase. CHEST X-RAY Stable right base pleural opacity. CT BRAIN Right thalamic hematoma with intraventricular blood. IMPRESSION 1. Respiratory insufficiency. 2. Right thalamic hematoma with intraventricular blood. 3. Xug-mvjza-agei lung cancer, Stage III-A, status post chemo. 4. Hypertension. 5. COPD. 6. Hyponatremia. 7. Left eye blindness. RECOMMENDATIONS 1. Monitor neuro status closely and avoid any sedatives. CT scan of the brain in the ED showed right thalamic hematoma with intraventricular blood and early dilatation of the lateral ventricles. Dr. Tejeda from neurosurgery was notified with findings. We will either repeat CT brain versus MRI, MRA of the brain for further workup. We will defer to neurosurgery. 2. Continue with oxygen to maintain sats above 92%. 3. Bronchodilators in the form of DuoNeb q. 6 and we will resume Symbicort and prednisone 5 mg b.i.d. 4. Check baseline ABG. 5. Monitor heart rate and blood pressure and maintain MAP greater 65 mmHg. Continue with antihypertensive meds. Patient is on Lopressor 25 mg p.o. q. 12, Norvasc 5 mg daily and we will place on hydralazine 10 mg IV q. 6 hours p.r.n. for systolic blood pressure greater than 160. 6. Monitor renal function I's and O's and electrolyte replacement as needed. 7. Place on IV fluids in the form of NS at 84 mL/hour. The patient was given 2 liters of crystalloids in the ED. Keep n.p.o. for now and will consult speech therapy for evaluation. 8. Monitor CBC and coags. 9. Monitor for signs of infection which include fever and WBC. Hold off on any antibiotics at this time as there is no evidence of any infectious process. 10. Place on sliding scale insulin with Accu-Cheks for glycemic control if needed. 11. No indications for GI prophylaxis. 12. DVT prophylaxis with SCDs. Chemical anticoagulation prophylaxis contraindicated in the setting of intracranial bleed. The case was discussed with Dr. Roy and ED nursing staff. MD WAN Krause/DAVID /2:05 AM /8:19 AM
[2017-08-30] MEDS: predniSONE 5 MG TAB PO SCH ×2 (09:00→20:52)
[2017-08-30] MEDS: amLODIPine BESYLATE 5 MG TAB PO SCH (09:00)
[2017-08-30] MEDS: DOCUSATE SODIUM 50 MG/SENNA 8.6 MG TAB PO SCH ×2 (09:00→20:52)
[2017-08-30] MEDS: METOPROLOL TARTRATE 25 MG TAB PO SCH ×2 (09:00→20:52)
[2017-08-30] MEDS: PANTOPRAZOLE SODIUM 40 MG VIAL IV PUSH SCH (11:08)
[2017-08-30] MEDS: BUDESONIDE-FORMOTEROL 160/4.5 MCG INHALER INH SCH ×2 (11:12→21:00)
--- NOTE | 2017-08-30 12:27 | MB ---
cc: ARJUN MCGARRY M.D. DATE OF CONSULTATION 08/30/2017 REASON FOR CONSULTATION Right thalamic hemorrhage. HISTORY OF PRESENT ILLNESS A 61-year-old female who presented to the emergency room with overall nonspecific complaints of not feeling well as well as complaints of unsteadiness in her gait, lightheaded and dizziness and some associated lethargy. She also complained of shortness of breath. She has a complicated medical history including COPD on home oxygen use, zkg-hxmjb-guuu lung cancer, hypertension, hepatitis C. CT scan of the head obtained reveals a 3.2 x 2 cm right thalamic hemorrhage with intraventricular extension to the third and fourth ventricles and mild hydrocephalus. She was admitted to the Intensive Care Unit for close neurologic and hemodynamic monitoring. Overnight her exam has remained stable, although her speech is dysarthric. She is a very poor historian. PAST MEDICAL HISTORY 1. COPD on home oxygen. 2. Non-small cell lung cancer. 3. Hepatitis C. 4. Hypertension. 5. Left eye cataract with blindness secondary to trauma. 6. History of colonoscopy. 7. Cataract surgery. 8. Kidney biopsy. 9. Previous port placement. 10. Cervical cancer. 11. History of atrial fibrillation. 12. Anxiety. 13. Congestive heart failure. 14. Drug-related seizures in the past. ALLERGIES SULFA. DICLOFENAC. SOCIAL HISTORY Denies alcohol use and is a former smoker. She is single, resides with a significant other. FAMILY HISTORY History of coronary artery disease and myocardial infarction in a sister. REVIEW OF SYSTEMS Pertinent positives as mentioned the History of Present Illness. Complaints of lethargy, weakness, unsteadiness, shortness of breath, spasms in her hands and feet bilaterally. Unclear as to the longevity of her symptoms and otherwise negative. LABORATORY FINDINGS White blood cell count 10.4, hemoglobin 14.1, platelet count 331. PT 11.2, INR 1.0, PTT 26.3. Sodium 132, potassium 4.0, BUN 6, creatinine 0.73, glucose 98. Troponin less than 0.02. Toxicology screen positive for benzodiazepines. PHYSICAL EXAMINATION VITALS: Temperature 98.6, blood pressure is 162/104, oxygen is 95% on 3 liters cannula. She was initially 87% on room air. VITAL SIGNS: Blood pressure 162/104. GENERAL: This is a elderly, moderately obese female who was lying in bed in no acute distress. She arouses to verbal stimulation and will follow commands. HEAD: Normocephalic, atraumatic. NECK: Supple with no guarding or rigidity. CHEST: Clear to auscultation bilaterally. HEART: Regular rate and rhythm. Normal S1 and S2. No murmurs. ABDOMEN: Soft, nontender. Positive bowel sounds. No hepatosplenomegaly. EXTREMITIES: No cyanosis, edema or deformity. SKIN: No ecchymosis or rash noted. NEUROLOGIC: She is sleeping but easily arousable. She states her name but does not know the location or date. She moves all four extremities well with some contractures in the hands bilaterally. The left pupil is not visualized because of severe cataracts and she is blind in that eye. Right pupil is 4, reacts down to 2. Extraocular muscles intact. She has mild left facial droop. Tongue is midline. She moves all four extremities, although does have weakness on the left side, 4-/5. Equivocal Babinski bilaterally. Appreciates light touch sensation. IMPRESSION 1. The right thalamic hemorrhage with intraventricular extension and mild hydrocephalus more likely related to hypertensive bleed. 2. COPD with the wid-jhlqi-fwvs lung cancer on home oxygen. 3. Hypertension. 4. Congestive heart failure. 5. Hyponatremia. PLAN 1. The patient will be monitored closely in the surgical intensive care unit. Her head of bed will be kept elevated 30 degrees. 2. Sequential compression device will be used for DVT prophylaxis. 3. Hypertension will be regulated. 4. Rehabilitation with speech therapy, occupational therapy and physical therapy will be undertaken with out of bed with assistance. 5. Followup CT scan of the head will be obtained tomorrow morning to rule out any progression of this hemorrhage or development of progressive hydrocephalus. Should her neurologic condition deteriorate, then she will need to be intubated for airway control and consider ventriculostomy placement also. Discussed with the patient as well as the nursing staff. Her condition is critical with a guarded prognosis, especially with recurrent hemorrhage as well as significant medical comorbidities. MD NIKOS Jefferson/DAVID /11:51 AM /12:09 PM
[2017-08-30] MEDS ORDERED: CHLORHEXIDINE GLUCONATE 2 % 1 PACK (2 CLOTHS)(extra cloths) TOPICAL PRN (14:30)
--- NOTE | 2017-08-30 18:21 | EKG ---
Date Performed: 08/29/2017 Time Performed: 21:34:11 PTAGE: 61 years EKG: Sinus rhythm POSSIBLE LEFT ATRIAL ENLARGEMENT BORDERLINE LEFT AXIS DEVIATION BORDERLINE ECG Compared to prior tra cing no significant change PREVIOUS TRACING : 08/13/2017 17.22 DOCTOR: Deja Camilo Interpretating Date/Time 08/30/2017 18:19:26
[2017-08-30] MEDS: MUPIROCIN 2% OINT 1 APPLIC/GM SYR NASAL SCH (20:52)
[2017-08-31] VITALS (13 sets, daily range): BP systolic 134–161; BP diastolic 64–101; PULSE 84–110; RESP 22–30; TEMP 97.4–99; O2SAT 93–97
[2017-08-31] MEDS: hydrALAZINE HCL 20 MG/ML VIAL IV PUSH PRN ×3 (00:37→09:45)
[2017-08-31] MEDS: SODIUM CHLOR 0.9% 1000 ML INJ 1,000 ML IV SCH (01:22)
[2017-08-31] MEDS: INSULIN NovoLIN REGULAR SUPPLEMENTAL SCALE SQ SCH ×6 (02:13→22:15)
[2017-08-31] MEDS ORDERED: DILTIAZEM HCL 25 MG/5 ML VIAL ONE (02:34)
[2017-08-31] MEDS ORDERED: DILTIAZEM HCL 25 MG/5 ML VIAL IV SCH (02:45)
[2017-08-31] MEDS: CHLORHEXIDINE GLUCONATE 2 % 1 PACK (2 CLOTHS)(taper/protocol) TOPICAL SCH (04:00)
[2017-08-31] MEDS: CHLORHEXIDINE GLUCONATE 2 % 1 PACK (2 CLOTHS) TOP SCH (04:00)
[2017-08-31] MEDS: RESP: ALBUTEROL 2.5 MG/IPRATROPIUM 0.5 MG NEB (SCH) INH ×4 (04:00→20:45)
[2017-08-31 04:21] LABS: PROTHROMBIN TIME - PATIENT 11.6 SEC (9.8-11.6)
[2017-08-31 04:23] LABS: AUTOMATED NEUTROPHIL # 13.1 TH/MM3 (1.8-7.7); BASOPHIL % 0.3 % (0.0-2.0); HEMATOCRIT 42.3 % (35.0-46.0); LYMPH % 3.4 % (9.0-44.0); LYMPHOCYTE # 0.5 TH/MM3 (1.0-4.8); MEAN CELL VOLUME 84.4 FL (80.0-100.0); MEAN CORPUSCULAR HGB CONC 33.2 % (32.0-36.0); MEAN PLATELET VOLUME 6.9 FL (7.0-11.0); MONO % 5.4 % (0.0-8.0); MONOCYTE # 0.8 TH/MM3 (0-0.9); NEUT % 90.9 % (16.0-70.0); PLATELET COUNT 371 TH/MM3 (150-450); RED BLOOD COUNT 5.01 MIL/MM3 (4.00-5.30); RED CELL DISTRIBUTION WIDTH 14.8 % (11.6-17.2); WHITE BLOOD COUNT 14.4 TH/MM3 (4.0-11.0)
[2017-08-31 04:33] LABS: BICARBONATE 24.2 MEQ/L (21.0-32.0); CALCIUM 9.3 MG/DL (8.5-10.1); CREATININE 0.8 MG/DL (0.50-1.00); MAGNESIUM 1.5 MG/DL (1.5-2.5); PHOSPHORUS 1.8 MG/DL (2.5-4.9)
--- NOTE | 2017-08-31 06:11 | RADRPT ---
EXAM DATE/TIME: 08/31/2017 05:30 [facility] COMPARISON: CT BRAIN W/O CONTRAST, August 30, 2017, 1:08. INDICATIONS : Hemorrhage, follow up. RADIATION DOSE: 31.75 CTDIvol (mGy) MEDICAL HISTORY : Non-responsive. SURGICAL HISTORY : Non-responsive. ENCOUNTER: Subsequent ACUITY: 1 day PAIN SCALE: Non-responsive LOCATION: cranial TECHNIQUE: Multiple contiguous axial images were obtained of the head. Using automated exposure control and adj ustment of the mA and/or kV according to patient size, radiation dose was kept as low as reasonably a chievable to obtain optimal diagnostic quality images. DICOM format image data is available electro nically for review and comparison. FINDINGS: Right thalamic hematoma and intraventricular blood is basically stable. Mild ventricular dilatation p ersists. No new acute findings are identified. CONCLUSION: No significant change Omar Arnold MD on August 31, 2017 at 6:08 Board Certified Radiologist. This report was verified electronically.
--- NOTE | 2017-08-31 08:53 | HHI.NSPN ---
(Jaskaran Rodriguez) History Chief Complaint: ICH. Aphasic. (Jaskaran Rodriguez) Interval History A 61-year-old female who presented to the emergency room with overall nonspecific complaints of not feeling well as well as complaints of unsteadiness in her gait, lightheaded and dizziness and some associated lethargy. She also complained of shortness of breath. She has a complicated medical history including COPD on home oxygen use, rwv-baalo-zcyp lung cancer, hypertension, hepatitis C. CT scan of the head obtained reveals a 3.2 x 2 cm right thalamic hemorrhage with intraventricular extension to the third and fourth ventricles and mild hydrocephalus. She was admitted to the Intensive Care Unit for close neurologic and hemodynamic monitoring. Overnight her exam has remained stable, although her speech is dysarthric. She is a very poor historian. 08/31/17: Pt arousable to pain. Nods head yes to all questions. Follows simple commands- moves toes and quiller machine fixer hands. Pt was having vomiting last night and this morning. (Jaskaran Rodriguez) System Review Comments Not able to obtain given clinical condition. (Jaskaran Rodriguez) Exam Results Vital Signs Date Time Temp Pulse Resp B/P (MAP) Pulse Ox O2 Delivery O2 Flow Rate FiO2 08/31/17 06:00 100 08/31/17 04:00 98.7 25 146/83 (104) 93 08/30/17 20:59 Nasal Cannula 2.00 Intake and Output 08/31/17 08/31/17 09/01/17 08:00 16:00 00:00 Intake Total 1000 ml Balance 1000 ml (Jaskaran Rodriguez) Physical Examination General: Pt appears comfortable in bed sleeping, arousable to pain. Resp: CTA bilaterally. Pt on O2 via NC Heart: NSR no murmurs Abd: Soft positive bs Skin: No cyanosis or erythema Muscle: Follows simple commands enough to move toes and guideman hands but not muscle testing. Neuro: Pt awakens to deep pain and stays awake for exam then goes back to sleep. Not verbalizing. She nods her head yes to all questions. She follows simple commands. 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 Right pupil 3mm and reactive. (Jaskaran Rodriguez) Lab, Micro, Other Results Last Impressions Head CT 08/31/17 0600 Signed Impressions: Service Date/Time: Thursday, August 31, 2017 05:30 - CONCLUSION: No significant change Omar Arnold MD Chest X-Ray 08/30/17 0000 Signed Impressions: Service Date/Time: Wednesday, August 30, 2017 00:54 - CONCLUSION: Stable chest appearance Omar Arnold MD Laboratory Tests Test 08/31/17 03:54 White Blood Count 14.4 TH/MM3 Red Blood Count 5.01 MIL/MM3 Hemoglobin 14.0 GM/DL Hematocrit 42.3 % Mean Corpuscular Volume 84.4 FL Mean Corpuscular Hemoglobin 28.0 PG Mean Corpuscular Hemoglobin Concent 33.2 % Red Cell Distribution Width 14.8 % Platelet Count 371 TH/MM3 Mean Platelet Volume 6.9 FL Neutrophils (%) (Auto) 90.9 % Lymphocytes (%) (Auto) 3.4 % Monocytes (%) (Auto) 5.4 % Eosinophils (%) (Auto) 0.0 % Basophils (%) (Auto) 0.3 % Neutrophils # (Auto) 13.1 TH/MM3 Lymphocytes # (Auto) 0.5 TH/MM3 Monocytes # (Auto) 0.8 TH/MM3 Eosinophils # (Auto) 0.0 TH/MM3 Basophils # (Auto) 0.0 TH/MM3 CBC Comment DIFF FINAL Differential Comment Prothrombin Time 11.6 SEC Prothromb Time International Ratio 1.0 RATIO Blood Urea Nitrogen 8 MG/DL Creatinine 0.80 MG/DL Random Glucose 207 MG/DL Calcium Level 9.3 MG/DL Phosphorus Level 1.8 MG/DL Magnesium Level 1.5 MG/DL Sodium Level 129 MEQ/L Potassium Level 3.3 MEQ/L Chloride Level 92 MEQ/L Carbon Dioxide Level 24.2 MEQ/L Anion Gap 13 MEQ/L Estimat Glomerular Filtration Rate 73 ML/MIN (Jaskaran Rodriguez) Medical Decision Making Impression and Plan A: 61 y/o FM with right thalamic hemorrhage with intraventricular extension and mild hydrocephalus more likely related to hypertensive bleed. 2. COPD with the odm-bjnho-ewan lung cancer on home oxygen. 3. Hypertension. 4. Congestive heart failure. 5. Hyponatremia. P: Continue with close neuro checks. A deterioration in her level of alertness will be a sign of worsening hydrocephalus and an indication for ventriculostomy drain placement. Continue with blood pressure control to prevent worsening ICH and progressive neurological decline. Continue with rehab efforts- PT, OT, Speech therapy Low dose Phenergan if Zofran not effective. Discussed with RN treatment plan. (Jaskaran Rodriguez) Attending Statement The exam, history, and the medical decision-making described in the above note were completed with the assistance of the mid-level provider. I reviewed and agree with the findings presented. I attest that I had a [id number] encounter with the patient on the same day, and personally performed and documented my assessment and findings in the medical record. She is awake and follows simple commands but appears to be going through methadone withdrawals with rigidity and restlessness. Nursing staff relates that since resuming her methadone she is better. Continue with medical management and hypertension regulation. (Laci Tejeda MD) Jaskaran Rodriguez Aug 31, 2017 08:53 Laci Tejeda MD Aug 31, 2017 18:18
--- NOTE | 2017-08-31 08:53 | HHI.NSPN ---
(Jaskaran Rodriguez) History Chief Complaint: ICH. Aphasic. (Jaskaran Rodriguez) Interval History A 61-year-old female who presented to the emergency room with overall nonspecific complaints of not feeling well as well as complaints of unsteadiness in her gait, lightheaded and dizziness and some associated lethargy. She also complained of shortness of breath. She has a complicated medical history including COPD on home oxygen use, txd-jxmde-nxwm lung cancer, hypertension, hepatitis C. CT scan of the head obtained reveals a 3.2 x 2 cm right thalamic hemorrhage with intraventricular extension to the third and fourth ventricles and mild hydrocephalus. She was admitted to the Intensive Care Unit for close neurologic and hemodynamic monitoring. Overnight her exam has remained stable, although her speech is dysarthric. She is a very poor historian. 08/31/17: Pt arousable to pain. Nods head yes to all questions. Follows simple commands- moves toes and school operations manager hands. Pt was having vomiting last night and this morning. (Jaskaran Rodriguez) System Review Comments Not able to obtain given clinical condition. (Jaskaran Rodriguez) Exam Results Vital Signs Date Time Temp Pulse Resp B/P (MAP) Pulse Ox O2 Delivery O2 Flow Rate FiO2 08/31/17 06:00 100 08/31/17 04:00 98.7 25 146/83 (104) 93 08/30/17 20:59 Nasal Cannula 2.00 Intake and Output 08/31/17 08/31/17 09/01/17 08:00 16:00 00:00 Intake Total 1000 ml Balance 1000 ml (Jaskaran Rodriguez) Physical Examination General: Pt appears comfortable in bed sleeping, arousable to pain. Resp: CTA bilaterally. Pt on O2 via NC Heart: NSR no murmurs Abd: Soft positive bs Skin: No cyanosis or erythema Muscle: Follows simple commands enough to move toes and senior electrical estimator hands but not muscle testing. Neuro: Pt awakens to deep pain and stays awake for exam then goes back to sleep. Not verbalizing. She nods her head yes to all questions. She follows simple commands. 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 Right pupil 3mm and reactive. (Jaskaran Rodriguez) Lab, Micro, Other Results Last Impressions Head CT 08/31/17 0600 Signed Impressions: Service Date/Time: Thursday, August 31, 2017 05:30 - CONCLUSION: No significant change Omar Arnold MD Chest X-Ray 08/30/17 0000 Signed Impressions: Service Date/Time: Wednesday, August 30, 2017 00:54 - CONCLUSION: Stable chest appearance Omar Arnold MD Laboratory Tests Test 08/31/17 03:54 White Blood Count 14.4 TH/MM3 Red Blood Count 5.01 MIL/MM3 Hemoglobin 14.0 GM/DL Hematocrit 42.3 % Mean Corpuscular Volume 84.4 FL Mean Corpuscular Hemoglobin 28.0 PG Mean Corpuscular Hemoglobin Concent 33.2 % Red Cell Distribution Width 14.8 % Platelet Count 371 TH/MM3 Mean Platelet Volume 6.9 FL Neutrophils (%) (Auto) 90.9 % Lymphocytes (%) (Auto) 3.4 % Monocytes (%) (Auto) 5.4 % Eosinophils (%) (Auto) 0.0 % Basophils (%) (Auto) 0.3 % Neutrophils # (Auto) 13.1 TH/MM3 Lymphocytes # (Auto) 0.5 TH/MM3 Monocytes # (Auto) 0.8 TH/MM3 Eosinophils # (Auto) 0.0 TH/MM3 Basophils # (Auto) 0.0 TH/MM3 CBC Comment DIFF FINAL Differential Comment Prothrombin Time 11.6 SEC Prothromb Time International Ratio 1.0 RATIO Blood Urea Nitrogen 8 MG/DL Creatinine 0.80 MG/DL Random Glucose 207 MG/DL Calcium Level 9.3 MG/DL Phosphorus Level 1.8 MG/DL Magnesium Level 1.5 MG/DL Sodium Level 129 MEQ/L Potassium Level 3.3 MEQ/L Chloride Level 92 MEQ/L Carbon Dioxide Level 24.2 MEQ/L Anion Gap 13 MEQ/L Estimat Glomerular Filtration Rate 73 ML/MIN (Jaskaran Rodriguez) Medical Decision Making Impression and Plan A: 61 y/o FM with right thalamic hemorrhage with intraventricular extension and mild hydrocephalus more likely related to hypertensive bleed. 2. COPD with the ftk-xjfxx-qlra lung cancer on home oxygen. 3. Hypertension. 4. Congestive heart failure. 5. Hyponatremia. P: Continue with close neuro checks. A deterioration in her level of alertness will be a sign of worsening hydrocephalus and an indication for ventriculostomy drain placement. Continue with blood pressure control to prevent worsening ICH and progressive neurological decline. Continue with rehab efforts- PT, OT, Speech therapy Low dose Phenergan if Zofran not effective. Discussed with RN treatment plan. (Jaskaran Rodriguez) Attending Statement The exam, history, and the medical decision-making described in the above note were completed with the assistance of the mid-level provider. I reviewed and agree with the findings presented. I attest that I had a [id number] encounter with the patient on the same day, and personally performed and documented my assessment and findings in the medical record. She is awake and follows simple commands but appears to be going through methadone withdrawals with rigidity and restlessness. Nursing staff relates that since resuming her methadone she is better. Continue with medical management and hypertension regulation. (Laci Tejeda MD) Jaskaran Rodriguez Aug 31, 2017 08:53 Laci Tejeda MD Aug 31, 2017 18:18
--- NOTE | 2017-08-31 08:53 | HHI.NSPN ---
(Jaskaran Rodriguez) History Chief Complaint: ICH. Aphasic. (Jaskaran Rodriguez) Interval History A 61-year-old female who presented to the emergency room with overall nonspecific complaints of not feeling well as well as complaints of unsteadiness in her gait, lightheaded and dizziness and some associated lethargy. She also complained of shortness of breath. She has a complicated medical history including COPD on home oxygen use, vvc-eoshh-xort lung cancer, hypertension, hepatitis C. CT scan of the head obtained reveals a 3.2 x 2 cm right thalamic hemorrhage with intraventricular extension to the third and fourth ventricles and mild hydrocephalus. She was admitted to the Intensive Care Unit for close neurologic and hemodynamic monitoring. Overnight her exam has remained stable, although her speech is dysarthric. She is a very poor historian. 08/31/17: Pt arousable to pain. Nods head yes to all questions. Follows simple commands- moves toes and development coach hands. Pt was having vomiting last night and this morning. (Jaskaran Rodriguez) System Review Comments Not able to obtain given clinical condition. (Jaskaran Rodriguez) Exam Results Vital Signs Date Time Temp Pulse Resp B/P (MAP) Pulse Ox O2 Delivery O2 Flow Rate FiO2 08/31/17 06:00 100 08/31/17 04:00 98.7 25 146/83 (104) 93 08/30/17 20:59 Nasal Cannula 2.00 Intake and Output 08/31/17 08/31/17 09/01/17 08:00 16:00 00:00 Intake Total 1000 ml Balance 1000 ml (Jaskaran Rodriguez) Physical Examination General: Pt appears comfortable in bed sleeping, arousable to pain. Resp: CTA bilaterally. Pt on O2 via NC Heart: NSR no murmurs Abd: Soft positive bs Skin: No cyanosis or erythema Muscle: Follows simple commands enough to move toes and principal associate hands but not muscle testing. Neuro: Pt awakens to deep pain and stays awake for exam then goes back to sleep. Not verbalizing. She nods her head yes to all questions. She follows simple commands. 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 Right pupil 3mm and reactive. (Jaskaran Rodriguez) Lab, Micro, Other Results Last Impressions Head CT 08/31/17 0600 Signed Impressions: Service Date/Time: Thursday, August 31, 2017 05:30 - CONCLUSION: No significant change Omar Arnold MD Chest X-Ray 08/30/17 0000 Signed Impressions: Service Date/Time: Wednesday, August 30, 2017 00:54 - CONCLUSION: Stable chest appearance Omar Arnold MD Laboratory Tests Test 08/31/17 03:54 White Blood Count 14.4 TH/MM3 Red Blood Count 5.01 MIL/MM3 Hemoglobin 14.0 GM/DL Hematocrit 42.3 % Mean Corpuscular Volume 84.4 FL Mean Corpuscular Hemoglobin 28.0 PG Mean Corpuscular Hemoglobin Concent 33.2 % Red Cell Distribution Width 14.8 % Platelet Count 371 TH/MM3 Mean Platelet Volume 6.9 FL Neutrophils (%) (Auto) 90.9 % Lymphocytes (%) (Auto) 3.4 % Monocytes (%) (Auto) 5.4 % Eosinophils (%) (Auto) 0.0 % Basophils (%) (Auto) 0.3 % Neutrophils # (Auto) 13.1 TH/MM3 Lymphocytes # (Auto) 0.5 TH/MM3 Monocytes # (Auto) 0.8 TH/MM3 Eosinophils # (Auto) 0.0 TH/MM3 Basophils # (Auto) 0.0 TH/MM3 CBC Comment DIFF FINAL Differential Comment Prothrombin Time 11.6 SEC Prothromb Time International Ratio 1.0 RATIO Blood Urea Nitrogen 8 MG/DL Creatinine 0.80 MG/DL Random Glucose 207 MG/DL Calcium Level 9.3 MG/DL Phosphorus Level 1.8 MG/DL Magnesium Level 1.5 MG/DL Sodium Level 129 MEQ/L Potassium Level 3.3 MEQ/L Chloride Level 92 MEQ/L Carbon Dioxide Level 24.2 MEQ/L Anion Gap 13 MEQ/L Estimat Glomerular Filtration Rate 73 ML/MIN (Jaskaran Rodriguez) Medical Decision Making Impression and Plan A: 61 y/o FM with right thalamic hemorrhage with intraventricular extension and mild hydrocephalus more likely related to hypertensive bleed. 2. COPD with the nij-ntril-teye lung cancer on home oxygen. 3. Hypertension. 4. Congestive heart failure. 5. Hyponatremia. P: Continue with close neuro checks. A deterioration in her level of alertness will be a sign of worsening hydrocephalus and an indication for ventriculostomy drain placement. Continue with blood pressure control to prevent worsening ICH and progressive neurological decline. Continue with rehab efforts- PT, OT, Speech therapy Low dose Phenergan if Zofran not effective. Discussed with RN treatment plan. (Jaskaran Rodriguez) Attending Statement The exam, history, and the medical decision-making described in the above note were completed with the assistance of the mid-level provider. I reviewed and agree with the findings presented. I attest that I had a [id number] encounter with the patient on the same day, and personally performed and documented my assessment and findings in the medical record. She is awake and follows simple commands but appears to be going through methadone withdrawals with rigidity and restlessness. Nursing staff relates that since resuming her methadone she is better. Continue with medical management and hypertension regulation. (Laci Tejeda MD) Jaskaran Rodriguez Aug 31, 2017 08:53 Laci Tejeda MD Aug 31, 2017 18:18
[2017-08-31] MEDS ORDERED: PROMETHAZINE INJ 25 MG/ML VIAL IM PRN (09:00)
[2017-08-31] MEDS ORDERED: PROCHLORPERAZINE MALEATE 10 MG TAB PO PRN (09:15)
[2017-08-31] MEDS: predniSONE 5 MG TAB PO SCH ×3 (09:47→21:00)
[2017-08-31] MEDS: amLODIPine BESYLATE 5 MG TAB PO SCH (09:47)
[2017-08-31] MEDS: PANTOPRAZOLE SODIUM 40 MG VIAL IV PUSH SCH (09:47)
[2017-08-31] MEDS: DOCUSATE SODIUM 50 MG/SENNA 8.6 MG TAB PO SCH ×2 (09:47→20:28)
[2017-08-31] MEDS ORDERED: POTASSIUM CHLOR 20 MEQ PREMIX 100 ML IV ONE (10:00)
[2017-08-31] MEDS ORDERED: LABETALOL HCL 100 MG/20 ML VIAL IV PRN (10:00)
[2017-08-31] MEDS: METOPROLOL TARTRATE 25 MG TAB PO SCH ×3 (10:39→21:00)
[2017-08-31] MEDS ORDERED: FUROSEMIDE 40 MG/4 ML VIAL IV PUSH ONE (10:45)
[2017-08-31] MEDS: SODIUM CHLORIDE 23.4% INJ 188 MEQ in SODIUM CHLOR 0.9% 1000 ML INJ 1,000 ML IV SCH (10:59)
--- NOTE | 2017-08-31 12:08 | HHI.CCPN ---
Subjective Remarks/Hospital Course The patient is a 61-year-old female with a past medical history of hypertension , COPD, non-small cell lung cancer Stage III-A. She presented to [facility] ED with a family member as she was not feeling well, reports being dizzy and lightheaded and unsteady gait. Also the patient has been sleeping a lot. On arrival to the ER she was hypertensive with systolic blood pressure in the 160s. No history of any cough or constitutional symptoms. The patient is status post chemotherapy a few months ago and being followed by Dr. Braxton from Oncology. She had a CT scan of the brain in the ER which showed right thalamic hematoma with intraventricular blood and early dilatation of the lateral ventricles. Dr. Tejeda from Neurosurgery was notified regarding the CT findings by the ED physician, Dr. Roy. The patient takes aspirin at home. She denies any history of liver disease. 08/31: Remains hypertensive requiring iv bp control. No neurological improvement overnight. Right thalamic bleed is unchanged from initial CT. She has problems with fluid retention and heart failure - will start diuretics. Patient is trembling - we will restart methadone maintenance. Objective Vital Signs Date Time Temp Pulse Resp B/P (MAP) Pulse Ox O2 Delivery O2 Flow Rate FiO2 08/31/17 06:00 100 08/31/17 04:00 98.7 25 146/83 (104) 93 08/30/17 20:59 Nasal Cannula 2.00 Intake and Output 08/31/17 08/31/17 09/01/17 08:00 16:00 00:00 Intake Total 1000 ml Balance 1000 ml Result Diagram: 08/31/17 0354 08/31/17 0354 Objective Remarks HEENT: Atraumatic, normocephalic. Conjunctivae pink. Nonicteric sclerae. NECK: Supple. Airway widely patent. Trachea in the midline. CARDIOVASCULAR EXAM: Regular rate and rhythm. Normal S1-S2. No murmurs, rubs or gallops noted. PULMONARY EXAM: Bilateral equal entry. No rales or wheezing. ABDOMEN: Soft, nontender, no distension. Positive bowel sounds. No guarding. EXTREMITIES: No cyanosis, clubbing or edema. Well perfused. NEURO: No focal sensory deficit. JAVAN. A/P Assessment and Plan IMPRESSION: 1. Respiratory insufficiency. 2. Right thalamic hematoma with intraventricular blood. 3. Mih-cevjm-rjzo lung cancer, Stage III-A, status post chemo. 4. Hypertension. 5. COPD. 6. Hyponatremia. 7. Left eye blindness. RECOMMENDATIONS: 1. Monitor neuro status closely and avoid any sedatives. CT scan of the brain in the ED showed right thalamic hematoma with intraventricular blood and early dilatation of the lateral ventricles. Dr. Tejeda from neurosurgery consulted. We will either repeat CT brain versus MRI, MRA of the brain for further workup. 2. Continue with oxygen to maintain sats above 92%. 3. Bronchodilators in the form of DuoNeb q. 6 and we will resume Symbicort and prednisone 5 mg b.i.d. 4. Check baseline ABG. 5. Monitor heart rate and blood pressure and maintain MAP greater 65 mmHg. Continue Lopressor 25 mg p.o. q. 12, Norvasc 5 mg daily and we will place on hydralazine 10 mg IV q. 6 hour p.r.n. for systolic blood pressure greater than 160. Labetalol added. 6. Monitor renal function I's and O's and electrolyte replacement as needed. 7. Place on IV fluids in the form of NS at 84 mL/hour. The patient was given 2 liters of crystalloids in the ED. Keep n.p.o. for now and will consult speech therapy for evaluation. 8. Monitor CBC and coags. 9. Monitor for signs of infection which include fever and WBC. Hold off on any antibiotics at this time as there is no evidence of any infectious process. 10. Place on sliding scale insulin with Accu-Cheks for glycemic control if needed. 11. No indications for GI prophylaxis. 12. DVT prophylaxis with SCDs. Chemical anticoagulation prophylaxis contraindicated in the setting of intracranial bleed. Overall impression: Stable hemodynamics; improve BP control Kevin Benjamin MD Aug 31, 2017 12:08
[2017-08-31] MEDS: MUPIROCIN 2% OINT 1 APPLIC/GM SYR NASAL SCH ×2 (13:02→20:28)
[2017-08-31] MEDS: BUDESONIDE-FORMOTEROL 160/4.5 MCG INHALER INH SCH ×2 (13:27→20:28)
[2017-08-31] MEDS: ONDANSETRON ODT 4 MG TAB PO SCH ×2 (13:32→18:40)
[2017-08-31] MEDS: METHADONE HCL 10 MG TAB PO SCH (14:02)
[2017-08-31] MEDS: ALPRAZolam 0.5 MG TAB PO PRN (20:27)
[2017-09-01] VITALS (16 sets, daily range): BP systolic 114–140; BP diastolic 58–74; PULSE 72–94; RESP 16–25; TEMP 97.8–98.7; O2SAT 95–99
[2017-09-01] MEDS: METHADONE HCL 10 MG TAB PO SCH ×2 (02:15→16:28)
[2017-09-01] MEDS: INSULIN NovoLIN REGULAR SUPPLEMENTAL SCALE SQ SCH ×4 (02:15→18:00)
[2017-09-01 03:16] LABS: BICARBONATE 29.6 MEQ/L (21.0-32.0); CALCIUM 9.4 MG/DL (8.5-10.1); CREATININE 0.65 MG/DL (0.50-1.00); PHOSPHORUS 2.9 MG/DL (2.5-4.9)
[2017-09-01] MEDS: CHLORHEXIDINE GLUCONATE 2 % 1 PACK (2 CLOTHS)(taper/protocol) TOPICAL SCH (04:00)
[2017-09-01] MEDS: CHLORHEXIDINE GLUCONATE 2 % 1 PACK (2 CLOTHS) TOP SCH (04:00)
[2017-09-01] MEDS: RESP: ALBUTEROL 2.5 MG/IPRATROPIUM 0.5 MG NEB (SCH) INH ×4 (04:50→21:25)
--- NOTE | 2017-09-01 08:36 | HHI.NSPN ---
(Jaskaran Rodriguez) History Chief Complaint: ICH. Aphasic. (Jaskaran Rodriguez) Interval History A 61-year-old female who presented to the emergency room with overall nonspecific complaints of not feeling well as well as complaints of unsteadiness in her gait, lightheaded and dizziness and some associated lethargy. She also complained of shortness of breath. She has a complicated medical history including COPD on home oxygen use, jwt-icpei-jrlc lung cancer, hypertension, hepatitis C. CT scan of the head obtained reveals a 3.2 x 2 cm right thalamic hemorrhage with intraventricular extension to the third and fourth ventricles and mild hydrocephalus. She was admitted to the Intensive Care Unit for close neurologic and hemodynamic monitoring. Overnight her exam has remained stable, although her speech is dysarthric. She is a very poor historian. 08/31/17: Pt arousable to pain. Nods head yes to all questions. Follows simple commands- moves toes and co founder and chairman hands. Pt was having vomiting last night and this morning. 09/01/17: Pt more awake this morning. She nods head to all questions but now able to give a thumbs up or down to questions. She follows simple commands well. (Jaskaran Rodriguez) System Review Comments Not able to obtain given clinical condition. (Jaskaran Rodriguez) Exam Results Vital Signs Date Time Temp Pulse Resp B/P (MAP) Pulse Ox O2 Delivery O2 Flow Rate FiO2 09/01/17 06:00 84 09/01/17 04:59 98 Nasal Cannula 3.00 09/01/17 04:00 98.6 25 135/72 (93) Intake and Output 09/01/17 09/01/17 09/02/17 08:00 16:00 00:00 Output Total 275 ml Balance -275 ml (Jaskaran Rodriguez) Physical Examination General: Pt more awake this morning and appears comfortable. Resp: CTA bilaterally. Pt on O2 via NC Heart: NSR no murmurs Abd: Soft positive bs Skin: No cyanosis or erythema Muscle: Follows simple commands enough to move toes and head still operator hands but not muscle testing. Neuro: Pt much more awake. She nods her head yes to all questions, but now communicating by giving a thumbs up or down. She follows simple commands. 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 Right pupil 3mm and reactive. (Jaskaran Rodriguez) Lab, Micro, Other Results Last Impressions Head CT 08/31/17 0600 Signed Impressions: Service Date/Time: Thursday, August 31, 2017 05:30 - CONCLUSION: No significant change Omar Arnold MD Chest X-Ray 08/30/17 0000 Signed Impressions: Service Date/Time: Wednesday, August 30, 2017 00:54 - CONCLUSION: Stable chest appearance Omar Arnold MD Laboratory Tests Test 09/01/17 02:30 Blood Urea Nitrogen 19 MG/DL Creatinine 0.65 MG/DL Random Glucose 106 MG/DL Calcium Level 9.4 MG/DL Phosphorus Level 2.9 MG/DL Sodium Level 137 MEQ/L Potassium Level 3.1 MEQ/L Chloride Level 97 MEQ/L Carbon Dioxide Level 29.6 MEQ/L Anion Gap 10 MEQ/L Estimat Glomerular Filtration Rate 92 ML/MIN (Jaskaran Rodriguez) Medical Decision Making Impression and Plan A: 61 y/o FM with right thalamic hemorrhage with intraventricular extension and mild hydrocephalus more likely related to hypertensive bleed. 2. COPD with the utm-iloie-nyqm lung cancer on home oxygen. 3. Hypertension. 4. Congestive heart failure. 5. Hyponatremia. P: Continue with close neuro checks in ICU. A deterioration in her level of alertness will be a sign of worsening hydrocephalus and an indication for ventriculostomy drain placement. Today her exam is improving but still requires close observation for acute neuro change. Continue with blood pressure control to prevent worsening ICH and progressive neurological decline. Continue with rehab efforts- PT, OT, Speech therapy Low dose Phenergan if Zofran not effective. Discussed with RN treatment plan. Updated family at bedside. (Jaskaran Rodriguez) Attending Statement The exam, history, and the medical decision-making described in the above note were completed with the assistance of the mid-level provider. I reviewed and agree with the findings presented. I attest that I had a [id number] encounter with the patient on the same day, and personally performed and documented my assessment and findings in the medical record. Much more alert and interactive today. Sitting up in chair and had a good breakfast. Hypertension regulated. Continue with close neuro checks and PT/OT. Discussed with nursing staff and family at bedside. (Laci Tejeda MD) Jaskaran Rodriguez Sep 01, 2017 08:36 Laci Tejeda MD Sep 01, 2017 15:23
--- NOTE | 2017-09-01 08:36 | HHI.NSPN ---
(Jaskaran Rodriguez) History Chief Complaint: ICH. Aphasic. (Jaskaran Rodriguez) Interval History A 61-year-old female who presented to the emergency room with overall nonspecific complaints of not feeling well as well as complaints of unsteadiness in her gait, lightheaded and dizziness and some associated lethargy. She also complained of shortness of breath. She has a complicated medical history including COPD on home oxygen use, edf-unoed-zxhw lung cancer, hypertension, hepatitis C. CT scan of the head obtained reveals a 3.2 x 2 cm right thalamic hemorrhage with intraventricular extension to the third and fourth ventricles and mild hydrocephalus. She was admitted to the Intensive Care Unit for close neurologic and hemodynamic monitoring. Overnight her exam has remained stable, although her speech is dysarthric. She is a very poor historian. 08/31/17: Pt arousable to pain. Nods head yes to all questions. Follows simple commands- moves toes and juvenile counselor hands. Pt was having vomiting last night and this morning. 09/01/17: Pt more awake this morning. She nods head to all questions but now able to give a thumbs up or down to questions. She follows simple commands well. (Jaskaran Rodriguez) System Review Comments Not able to obtain given clinical condition. (Jaskaran Rodriguez) Exam Results Vital Signs Date Time Temp Pulse Resp B/P (MAP) Pulse Ox O2 Delivery O2 Flow Rate FiO2 09/01/17 06:00 84 09/01/17 04:59 98 Nasal Cannula 3.00 09/01/17 04:00 98.6 25 135/72 (93) Intake and Output 09/01/17 09/01/17 09/02/17 08:00 16:00 00:00 Output Total 275 ml Balance -275 ml (Jaskaran Rodriguez) Physical Examination General: Pt more awake this morning and appears comfortable. Resp: CTA bilaterally. Pt on O2 via NC Heart: NSR no murmurs Abd: Soft positive bs Skin: No cyanosis or erythema Muscle: Follows simple commands enough to move toes and log scaler hands but not muscle testing. Neuro: Pt much more awake. She nods her head yes to all questions, but now communicating by giving a thumbs up or down. She follows simple commands. 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 Right pupil 3mm and reactive. (Jaskaran Rodriguez) Lab, Micro, Other Results Last Impressions Head CT 08/31/17 0600 Signed Impressions: Service Date/Time: Thursday, August 31, 2017 05:30 - CONCLUSION: No significant change Omar Arnold MD Chest X-Ray 08/30/17 0000 Signed Impressions: Service Date/Time: Wednesday, August 30, 2017 00:54 - CONCLUSION: Stable chest appearance Omar Arnold MD Laboratory Tests Test 09/01/17 02:30 Blood Urea Nitrogen 19 MG/DL Creatinine 0.65 MG/DL Random Glucose 106 MG/DL Calcium Level 9.4 MG/DL Phosphorus Level 2.9 MG/DL Sodium Level 137 MEQ/L Potassium Level 3.1 MEQ/L Chloride Level 97 MEQ/L Carbon Dioxide Level 29.6 MEQ/L Anion Gap 10 MEQ/L Estimat Glomerular Filtration Rate 92 ML/MIN (Jaskaran Rodriguez) Medical Decision Making Impression and Plan A: 61 y/o FM with right thalamic hemorrhage with intraventricular extension and mild hydrocephalus more likely related to hypertensive bleed. 2. COPD with the ung-jvkur-vavs lung cancer on home oxygen. 3. Hypertension. 4. Congestive heart failure. 5. Hyponatremia. P: Continue with close neuro checks in ICU. A deterioration in her level of alertness will be a sign of worsening hydrocephalus and an indication for ventriculostomy drain placement. Today her exam is improving but still requires close observation for acute neuro change. Continue with blood pressure control to prevent worsening ICH and progressive neurological decline. Continue with rehab efforts- PT, OT, Speech therapy Low dose Phenergan if Zofran not effective. Discussed with RN treatment plan. Updated family at bedside. (Jaskaran Rodriguez) Attending Statement The exam, history, and the medical decision-making described in the above note were completed with the assistance of the mid-level provider. I reviewed and agree with the findings presented. I attest that I had a [id number] encounter with the patient on the same day, and personally performed and documented my assessment and findings in the medical record. Much more alert and interactive today. Sitting up in chair and had a good breakfast. Hypertension regulated. Continue with close neuro checks and PT/OT. Discussed with nursing staff and family at bedside. (Laci Tejeda MD) Jaskaran Rodriguez Sep 01, 2017 08:36 Laci Tejeda MD Sep 01, 2017 15:23
--- NOTE | 2017-09-01 08:36 | HHI.CCPN ---
Subjective Remarks/Hospital Course The patient is a 61-year-old female with a past medical history of hypertension , COPD, non-small cell lung cancer Stage III-A. She presented to [facility] ED with a family member as she was not feeling well, reports being dizzy and lightheaded and unsteady gait. Also the patient has been sleeping a lot. On arrival to the ER she was hypertensive with systolic blood pressure in the 160s. No history of any cough or constitutional symptoms. The patient is status post chemotherapy a few months ago and being followed by Dr. Braxton from Oncology. She had a CT scan of the brain in the ER which showed right thalamic hematoma with intraventricular blood and early dilatation of the lateral ventricles. Dr. Tejeda from Neurosurgery was notified regarding the CT findings by the ED physician, Dr. Roy. The patient takes aspirin at home. She denies any history of liver disease. 08/31: Remains hypertensive requiring iv bp control. No neurological improvement overnight. Right thalamic bleed is unchanged from initial CT. She has problems with fluid retention and heart failure - will start diuretics. Patient is trembling - we will restart methadone maintenance. 09/01: BP control better. Good response to diuretic. A bit more alert this morning, responds to questions with smile and head nod. Objective Vital Signs Date Time Temp Pulse Resp B/P (MAP) Pulse Ox O2 Delivery O2 Flow Rate FiO2 09/01/17 06:00 84 09/01/17 04:59 98 Nasal Cannula 3.00 09/01/17 04:00 98.6 25 135/72 (93) Intake and Output 09/01/17 09/01/17 09/02/17 08:00 16:00 00:00 Output Total 275 ml Balance -275 ml Result Diagram: 08/31/17 0354 09/01/17 0230 Objective Remarks HEENT: Atraumatic, normocephalic. Conjunctivae pink. Nonicteric sclerae. NECK: Supple. Airway widely patent. Trachea in the midline. CARDIOVASCULAR EXAM: Regular rate and rhythm. Normal S1-S2. No murmurs, rubs or gallops noted. PULMONARY EXAM: Bilateral equal entry. No rales or wheezing. ABDOMEN: Soft, nontender, no distension. Positive bowel sounds. No guarding. EXTREMITIES: No cyanosis, clubbing or edema. Well perfused. NEURO: Right hand grasp 3/5, left 5/5. Tracks with right eye (left blind). Appears to understand speech. Very limited ability to speak. Protects airway, handles secretions well. A/P Assessment and Plan IMPRESSION: 1. Respiratory insufficiency. 2. Right thalamic hematoma with intraventricular blood. 3. Vyo-xfljw-upmy lung cancer, Stage III-A, status post chemo. 4. Hypertension. 5. COPD. 6. Hyponatremia. 7. Left eye blindness. RECOMMENDATIONS: 1. Monitor neuro status closely and avoid any sedatives. CT scan showed right thalamic hematoma with intraventricular blood and early dilatation of the lateral ventricles. Dr. Tejeda from neurosurgery is following. 2. Continue with oxygen to maintain sats above 92%. 3. Bronchodilators in the form of DuoNeb q. 6 and we will resume Symbicort and prednisone 5 mg b.i.d. 4. Check baseline ABG. 5. Monitor heart rate and blood pressure and maintain MAP greater 65 mmHg. Continue Lopressor 25 mg p.o. q. 12, Norvasc 5 mg daily and we will place on hydralazine 10 mg IV q. 6 hour p.r.n. for systolic blood pressure greater than 160. Labetalol added. 6. Monitor renal function I's and O's and electrolyte replacement as needed. 7. Place on IV fluids in the form of NS at 50 mL/hour. The patient was given 2 liters of crystalloids in the ED. Keep n.p.o. for now and will consult speech therapy for evaluation. 8. Monitor CBC and coags. 9. Monitor for signs of infection which include fever and WBC. Hold off on any antibiotics at this time as there is no evidence of any infectious process. 10. Place on sliding scale insulin with Accu-Cheks for glycemic control if needed. 11. No indications for GI prophylaxis. 12. DVT prophylaxis with SCDs. Chemical anticoagulation prophylaxis contraindicated in the setting of intracranial bleed. Overall impression: Stable hemodynamics; improved BP control. Clinically a little more spry today. Kevin Benjamin MD Sep 01, 2017 08:36
--- NOTE | 2017-09-01 08:36 | HHI.NSPN ---
(Jaskaran Rodriguez) History Chief Complaint: ICH. Aphasic. (Jaskaran Rodriguez) Interval History A 61-year-old female who presented to the emergency room with overall nonspecific complaints of not feeling well as well as complaints of unsteadiness in her gait, lightheaded and dizziness and some associated lethargy. She also complained of shortness of breath. She has a complicated medical history including COPD on home oxygen use, frw-yeenu-kdod lung cancer, hypertension, hepatitis C. CT scan of the head obtained reveals a 3.2 x 2 cm right thalamic hemorrhage with intraventricular extension to the third and fourth ventricles and mild hydrocephalus. She was admitted to the Intensive Care Unit for close neurologic and hemodynamic monitoring. Overnight her exam has remained stable, although her speech is dysarthric. She is a very poor historian. 08/31/17: Pt arousable to pain. Nods head yes to all questions. 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 Pt was having vomiting last night and this morning. 09/01/17: Pt more awake this morning. She nods head to all questions but now able to give a thumbs up or down to questions. She follows simple commands well. (Jaskaran Rodriguez) System Review Comments Not able to obtain given clinical condition. (Jaskaran Rodriguez) Exam Results Vital Signs Date Time Temp Pulse Resp B/P (MAP) Pulse Ox O2 Delivery O2 Flow Rate FiO2 09/01/17 06:00 84 09/01/17 04:59 98 Nasal Cannula 3.00 09/01/17 04:00 98.6 25 135/72 (93) Intake and Output 09/01/17 09/01/17 09/02/17 08:00 16:00 00:00 Output Total 275 ml Balance -275 ml (Jaskaran Rodriguez) Physical Examination General: Pt more awake this morning and appears comfortable. Resp: CTA bilaterally. Pt on O2 via NC Heart: NSR no murmurs Abd: Soft positive bs Skin: No cyanosis or erythema Muscle: Follows simple commands enough to move toes and athletics director hands but not muscle testing. Neuro: Pt much more awake. She nods her head yes to all questions, but now communicating by giving a thumbs up or down. She follows simple commands. 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 Right pupil 3mm and reactive. (Jaskaran Rodriguez) Lab, Micro, Other Results Last Impressions Head CT 08/31/17 0600 Signed Impressions: Service Date/Time: Thursday, August 31, 2017 05:30 - CONCLUSION: No significant change Omar Arnold MD Chest X-Ray 08/30/17 0000 Signed Impressions: Service Date/Time: Wednesday, August 30, 2017 00:54 - CONCLUSION: Stable chest appearance Omar Arnold MD Laboratory Tests Test 09/01/17 02:30 Blood Urea Nitrogen 19 MG/DL Creatinine 0.65 MG/DL Random Glucose 106 MG/DL Calcium Level 9.4 MG/DL Phosphorus Level 2.9 MG/DL Sodium Level 137 MEQ/L Potassium Level 3.1 MEQ/L Chloride Level 97 MEQ/L Carbon Dioxide Level 29.6 MEQ/L Anion Gap 10 MEQ/L Estimat Glomerular Filtration Rate 92 ML/MIN (Jaskaran Rodriguez) Medical Decision Making Impression and Plan A: 61 y/o FM with right thalamic hemorrhage with intraventricular extension and mild hydrocephalus more likely related to hypertensive bleed. 2. COPD with the hug-pzprq-flis lung cancer on home oxygen. 3. Hypertension. 4. Congestive heart failure. 5. Hyponatremia. P: Continue with close neuro checks in ICU. A deterioration in her level of alertness will be a sign of worsening hydrocephalus and an indication for ventriculostomy drain placement. Today her exam is improving but still requires close observation for acute neuro change. Continue with blood pressure control to prevent worsening ICH and progressive neurological decline. Continue with rehab efforts- PT, OT, Speech therapy Low dose Phenergan if Zofran not effective. Discussed with RN treatment plan. Updated family at bedside. (Jaskaran Rodriguez) Attending Statement The exam, history, and the medical decision-making described in the above note were completed with the assistance of the mid-level provider. I reviewed and agree with the findings presented. I attest that I had a [id number] encounter with the patient on the same day, and personally performed and documented my assessment and findings in the medical record. Much more alert and interactive today. Sitting up in chair and had a good breakfast. Hypertension regulated. Continue with close neuro checks and PT/OT. Discussed with nursing staff and family at bedside. (Laci Tejeda MD) Jaskaran Rodriguez Sep 01, 2017 08:36 Laci Tejeda MD Sep 01, 2017 15:23
[2017-09-01] MEDS: METOPROLOL TARTRATE 25 MG TAB PO SCH ×2 (09:58→20:44)
[2017-09-01] MEDS: DOCUSATE SODIUM 50 MG/SENNA 8.6 MG TAB PO SCH ×2 (09:58→20:44)
[2017-09-01] MEDS: PANTOPRAZOLE SODIUM 40 MG VIAL IV PUSH SCH (09:58)
[2017-09-01] MEDS: predniSONE 5 MG TAB PO SCH ×2 (09:58→20:44)
[2017-09-01] MEDS: amLODIPine BESYLATE 5 MG TAB PO SCH (09:58)
[2017-09-01] MEDS: MUPIROCIN 2% OINT 1 APPLIC/GM SYR NASAL SCH ×2 (09:58→20:44)
[2017-09-01] MEDS: NS + KCL 20 MEQ INJ 1,000 ML IV SCH (09:59)
[2017-09-01] MEDS ORDERED: INSULIN NovoLIN REGULAR SUPPLEMENTAL SCALE SQ SCH (10:00)
[2017-09-01] MEDS: SODIUM CHLORIDE 23.4% INJ 188 MEQ in SODIUM CHLOR 0.9% 1000 ML INJ 1,000 ML IV SCH (11:55)
[2017-09-01] MEDS: ONDANSETRON ODT 4 MG TAB PO SCH ×3 (11:55→20:44)
[2017-09-01] MEDS: BUDESONIDE-FORMOTEROL 160/4.5 MCG INHALER INH SCH ×2 (12:13→21:00)
[2017-09-01] MEDS: ALPRAZolam 0.5 MG TAB PO PRN (20:44)
[2017-09-02] VITALS (16 sets, daily range): BP systolic 111–135; BP diastolic 59–78; PULSE 66–88; RESP 18–21; TEMP 97.8–98.9; O2SAT 93–99
[2017-09-02] MEDS: METHADONE HCL 10 MG TAB PO SCH ×2 (02:00→12:48)
[2017-09-02] MEDS: CHLORHEXIDINE GLUCONATE 2 % 1 PACK (2 CLOTHS) TOP SCH (02:14)
[2017-09-02] MEDS: CHLORHEXIDINE GLUCONATE 2 % 1 PACK (2 CLOTHS)(taper/protocol) TOPICAL SCH (02:15)
[2017-09-02] MEDS: RESP: ALBUTEROL 2.5 MG/IPRATROPIUM 0.5 MG NEB (SCH) INH ×4 (04:34→20:23)
[2017-09-02] MEDS: NS + KCL 20 MEQ INJ 1,000 ML IV SCH (04:48)
[2017-09-02 05:51] LABS: BICARBONATE 29.1 MEQ/L (21.0-32.0); CALCIUM 8.3 MG/DL (8.5-10.1); CREATININE 0.48 MG/DL (0.50-1.00)
[2017-09-02] MEDS: INSULIN NovoLIN REGULAR SUPPLEMENTAL SCALE SQ SCH ×4 (06:00→18:00)
--- NOTE | 2017-09-02 07:28 | HHI.CCPN ---
Subjective Remarks/Hospital Course The patient is a 61-year-old female with a past medical history of hypertension , COPD, non-small cell lung cancer Stage III-A. She presented to [facility] ED with a family member as she was not feeling well, reports being dizzy and lightheaded and unsteady gait. Also the patient has been sleeping a lot. On arrival to the ER she was hypertensive with systolic blood pressure in the 160s. No history of any cough or constitutional symptoms. The patient is status post chemotherapy a few months ago and being followed by Dr. Braxton from Oncology. She had a CT scan of the brain in the ER which showed right thalamic hematoma with intraventricular blood and early dilatation of the lateral ventricles. Dr. Tejeda from Neurosurgery was notified regarding the CT findings by the ED physician, Dr. Roy. The patient takes aspirin at home. She denies any history of liver disease. 08/31: Remains hypertensive requiring iv bp control. No neurological improvement overnight. Right thalamic bleed is unchanged from initial CT. She has problems with fluid retention and heart failure - will start diuretics. Patient is trembling - we will restart methadone maintenance. 09/01: BP control better. Good response to diuretic. A bit more alert this morning, responds to questions with smile and head nod. 09/02: Speech improved. Protects airway, swallows fine. BP control good. Expressive aphasia persists. Objective Vital Signs Date Time Temp Pulse Resp B/P (MAP) Pulse Ox O2 Delivery O2 Flow Rate FiO2 09/02/17 07:00 94 Nasal Cannula 2.00 09/02/17 06:00 69 09/02/17 04:00 98.9 19 126/72 (90) Intake and Output 09/02/17 09/02/17 09/03/17 08:00 16:00 00:00 Intake Total 2081 ml Output Total 500 ml Balance 1581 ml Result Diagram: 08/31/17 0354 09/02/17 0446 Objective Remarks HEENT: Atraumatic, normocephalic. NECK: Supple. Airway widely patent. Trachea midline. CARDIOVASCULAR EXAM: Regular rate and rhythm. Normal S1-S2. No murmurs, rubs or gallops noted. PULMONARY EXAM: Bilateral equal entry. No rales or wheezing. Clear. ABDOMEN: Soft, nontender, no distension. Active bowel sounds. No guarding. EXTREMITIES: No cyanosis, clubbing or edema. Well perfused. NEURO: Right hand grasp 3/5, left 5/5. Tracks with right eye (left blind). Appears to understand speech. Improved ability to speak. Protects airway, handles secretions well. A/P Assessment and Plan IMPRESSION: 1. Respiratory insufficiency. 2. Right thalamic hematoma with intraventricular blood. 3. Ase-jjqjq-lzls lung cancer, Stage III-A, status post chemo. 4. Hypertension. 5. COPD. 6. Hyponatremia. 7. Left eye blindness. RECOMMENDATIONS: 1. Monitor neuro status closely and avoid any sedatives. CT scan showed right thalamic hematoma with intraventricular blood and early dilatation of the lateral ventricles. 2. Continue with oxygen to maintain sats above 92%. 3. Bronchodilators in the form of DuoNeb q. 6 and we will resume Symbicort and prednisone 5 mg b.i.d. 4. Diet. 5. Monitor heart rate and blood pressure and maintain MAP greater 65 mmHg. Continue Lopressor 25 mg p.o. q. 12, Norvasc 5 mg daily and we will place on hydralazine 10 mg IV q. 6 hour p.r.n. for systolic blood pressure greater than 160. Labetalol added. 6. Monitor renal function I's and O's and electrolyte replacement as needed. 7. Minimize iv fluid. 8. Monitor CBC and coags. 9. Monitor for signs of infection which include fever and WBC. 10. Place on sliding scale insulin with Accu-Cheks for glycemic control if needed. 11. Pepcid. 12. DVT prophylaxis with SCDs. Chemical anticoagulation prophylaxis contraindicated in the setting of intracranial bleed. Overall impression: Stable hemodynamics; improved BP control. Clinically improved. Kevin Benjamin MD Sep 02, 2017 07:27
[2017-09-02] MEDS: MUPIROCIN 2% OINT 1 APPLIC/GM SYR NASAL SCH (08:35)
[2017-09-02] MEDS: PANTOPRAZOLE SODIUM 40 MG VIAL IV PUSH SCH (08:35)
[2017-09-02] MEDS: ONDANSETRON ODT 4 MG TAB PO SCH ×3 (08:35→17:32)
[2017-09-02] MEDS: METOPROLOL TARTRATE 25 MG TAB PO SCH ×2 (08:36→20:15)
[2017-09-02] MEDS: amLODIPine BESYLATE 5 MG TAB PO SCH (08:36)
[2017-09-02] MEDS: predniSONE 5 MG TAB PO SCH ×2 (08:36→20:15)
[2017-09-02] MEDS: DOCUSATE SODIUM 50 MG/SENNA 8.6 MG TAB PO SCH ×2 (08:36→20:16)
--- NOTE | 2017-09-02 08:52 | HHI.NSPN ---
(Jaskaran Rodriguez) History Chief Complaint: ICH. Aphasic. (Jaskaran Rodriguez) Interval History A 61-year-old female who presented to the emergency room with overall nonspecific complaints of not feeling well as well as complaints of unsteadiness in her gait, lightheaded and dizziness and some associated lethargy. She also complained of shortness of breath. She has a complicated medical history including COPD on home oxygen use, bqw-ptqri-jyhm lung cancer, hypertension, hepatitis C. CT scan of the head obtained reveals a 3.2 x 2 cm right thalamic hemorrhage with intraventricular extension to the third and fourth ventricles and mild hydrocephalus. She was admitted to the Intensive Care Unit for close neurologic and hemodynamic monitoring. Overnight her exam has remained stable, although her speech is dysarthric. She is a very poor historian. 08/31/17: Pt arousable to pain. Nods head yes to all questions. Follows simple commands- moves toes and outboard system operator hands. Pt was having vomiting last night and this morning. 09/01/17: Pt more awake this morning. She nods head to all questions but now able to give a thumbs up or down to questions. She follows simple commands well. 09/02/17: Pt more awake again this morning, now verbalizing to questions. Denies headache. States some nausea. No numbness or paresthesias in face or extremities. Follows commands well. (Jaskaran Rodriguez) Review of Systems General: Negative for: fever, chills, insomnia Respiratory: Negative for: shortness of breath, cough, sputum Cardiovascular: Negative for: chest pain Gastrointestinal: Negative for: nausea, vomitting, diarrhea, constipation ( Jaskaran Rodriguez) Exam Results Vital Signs Date Time Temp Pulse Resp B/P (MAP) Pulse Ox O2 Delivery O2 Flow Rate FiO2 09/02/17 07:00 94 Nasal Cannula 2.00 09/02/17 06:00 69 09/02/17 04:00 98.9 19 126/72 (90) Intake and Output 09/02/17 09/02/1717 08:00 16:00 00:00 Intake Total 2081 ml Output Total 500 ml Balance 1581 ml (Jaskaran Rodriguez) Physical Examination General: Pt more awake this morning and appears comfortable in bed. Resp: CTA bilaterally. Pt on O2 via NC Heart: NSR no murmurs Abd: Soft positive bs Skin: No cyanosis or erythema Muscle: Follows simple commands enough to move toes and national opelint analyst hands. Strength appears 5/5 resting in bed. Neuro: Pt much more awake. Pt now verbalizing more. She follows simple commands. 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 Right pupil 4mm and reactive. (Jaskaran Rodriguez) Lab, Micro, Other Results Last Impressions Head CT 08/31/17 0600 Signed Impressions: Service Date/Time: Thursday, August 31, 2017 05:30 - CONCLUSION: No significant change Omar Arnold MD Chest X-Ray 08/30/17 0000 Signed Impressions: Service Date/Time: Wednesday, August 30, 2017 00:54 - CONCLUSION: Stable chest appearance Omar Arnold MD Laboratory Tests Test 09/02/17 04:46 Blood Urea Nitrogen 18 MG/DL Creatinine 0.48 MG/DL Random Glucose 86 MG/DL Calcium Level 8.3 MG/DL Sodium Level 139 MEQ/L Potassium Level 3.5 MEQ/L Chloride Level 102 MEQ/L Carbon Dioxide Level 29.1 MEQ/L Anion Gap 8 MEQ/L Estimat Glomerular Filtration Rate 131 ML/MIN (Jaskaran Rodriguez) Medical Decision Making Impression and Plan A: 61 y/o FM with right thalamic hemorrhage with intraventricular extension and mild hydrocephalus more likely related to hypertensive bleed. 2. COPD with the gpr-awipk-okuj lung cancer on home oxygen. 3. Hypertension. 4. Congestive heart failure. 5. Hyponatremia. P: Continue with close neuro checks in ICU. A deterioration in her level of alertness will be a sign of worsening hydrocephalus and an indication for ventriculostomy drain placement. Today her exam is improving but still requires close observation for acute neuro change. Continue with blood pressure control to prevent worsening ICH and progressive neurological decline. Continue with rehab efforts- PT, OT, Speech therapy Discussed with RN treatment plan. (Jaskaran Rodriguez) Attending Statement The exam, history, and the medical decision-making described in the above note were completed with the assistance of the mid-level provider. I reviewed and agree with the findings presented. I attest that I had a [id number] encounter with the patient on the same day, and personally performed and documented my assessment and findings in the medical record. Very alert and interactive today. No vomiting and tolerating diet well. Hypertension regulation and rehabilitation is the current focus. Discussed with family at bedside and nursing staff. (Laci Tejeda MD) Jaskaran Rodriguez Sep 02, 2017 08:52 Laci Tejeda MD Sep 02, 2017 12:11
--- NOTE | 2017-09-02 08:52 | HHI.NSPN ---
(Jaskaran Rodriguez) History Chief Complaint: ICH. Aphasic. (Jaskaran Rodriguez) Interval History A 61-year-old female who presented to the emergency room with overall nonspecific complaints of not feeling well as well as complaints of unsteadiness in her gait, lightheaded and dizziness and some associated lethargy. She also complained of shortness of breath. She has a complicated medical history including COPD on home oxygen use, gij-aejrt-szph lung cancer, hypertension, hepatitis C. CT scan of the head obtained reveals a 3.2 x 2 cm right thalamic hemorrhage with intraventricular extension to the third and fourth ventricles and mild hydrocephalus. She was admitted to the Intensive Care Unit for close neurologic and hemodynamic monitoring. Overnight her exam has remained stable, although her speech is dysarthric. She is a very poor historian. 08/31/17: Pt arousable to pain. Nods head yes to all questions. 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 Pt was having vomiting last night and this morning. 09/01/17: Pt more awake this morning. She nods head to all questions but now able to give a thumbs up or down to questions. She follows simple commands well. 09/02/17: Pt more awake again this morning, now verbalizing to questions. Denies headache. States some nausea. No numbness or paresthesias in face or extremities. Follows commands well. (Jaskaran Rodriguez) Review of Systems General: Negative for: fever, chills, insomnia Respiratory: Negative for: shortness of breath, cough, sputum Cardiovascular: Negative for: chest pain Gastrointestinal: Negative for: nausea, vomitting, diarrhea, constipation ( Jaskaran Rodriguez) Exam Results Vital Signs Date Time Temp Pulse Resp B/P (MAP) Pulse Ox O2 Delivery O2 Flow Rate FiO2 09/02/17 07:00 94 Nasal Cannula 2.00 09/02/17 06:00 69 09/02/17 04:00 98.9 19 126/72 (90) Intake and Output 09/02/17 09/02/1717 08:00 16:00 00:00 Intake Total 2081 ml Output Total 500 ml Balance 1581 ml (Jaskaran Rodriguez) Physical Examination General: Pt more awake this morning and appears comfortable in bed. Resp: CTA bilaterally. 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 Strength appears 5/5 resting in bed. Neuro: Pt much more awake. Pt now verbalizing more. She follows simple commands. 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 Right pupil 4mm and reactive. (Jaskaran Rodriguez) Lab, Micro, Other Results Last Impressions Head CT 08/31/17 0600 Signed Impressions: Service Date/Time: Thursday, August 31, 2017 05:30 - CONCLUSION: No significant change Omar Arnold MD Chest X-Ray 08/30/17 0000 Signed Impressions: Service Date/Time: Wednesday, August 30, 2017 00:54 - CONCLUSION: Stable chest appearance Omar Arnold MD Laboratory Tests Test 09/02/17 04:46 Blood Urea Nitrogen 18 MG/DL Creatinine 0.48 MG/DL Random Glucose 86 MG/DL Calcium Level 8.3 MG/DL Sodium Level 139 MEQ/L Potassium Level 3.5 MEQ/L Chloride Level 102 MEQ/L Carbon Dioxide Level 29.1 MEQ/L Anion Gap 8 MEQ/L Estimat Glomerular Filtration Rate 131 ML/MIN (Jaskaran Rodriguez) Medical Decision Making Impression and Plan A: 61 y/o FM with right thalamic hemorrhage with intraventricular extension and mild hydrocephalus more likely related to hypertensive bleed. 2. COPD with the wds-pircc-zabk lung cancer on home oxygen. 3. Hypertension. 4. Congestive heart failure. 5. Hyponatremia. P: Continue with close neuro checks in ICU. A deterioration in her level of alertness will be a sign of worsening hydrocephalus and an indication for ventriculostomy drain placement. Today her exam is improving but still requires close observation for acute neuro change. Continue with blood pressure control to prevent worsening ICH and progressive neurological decline. Continue with rehab efforts- PT, OT, Speech therapy Discussed with RN treatment plan. (Jaskaran Rodriguez) Attending Statement The exam, history, and the medical decision-making described in the above note were completed with the assistance of the mid-level provider. I reviewed and agree with the findings presented. I attest that I had a [id number] encounter with the patient on the same day, and personally performed and documented my assessment and findings in the medical record. Very alert and interactive today. No vomiting and tolerating diet well. Hypertension regulation and rehabilitation is the current focus. Discussed with family at bedside and nursing staff. (Laci Tejeda MD) Jaskaran Rodriguez Sep 02, 2017 08:52 Laci Tejeda MD Sep 02, 2017 12:11
--- NOTE | 2017-09-02 08:52 | HHI.NSPN ---
(Jaskaran Rodriguez) History Chief Complaint: ICH. Aphasic. (Jaskaran Rodriguez) Interval History A 61-year-old female who presented to the emergency room with overall nonspecific complaints of not feeling well as well as complaints of unsteadiness in her gait, lightheaded and dizziness and some associated lethargy. She also complained of shortness of breath. She has a complicated medical history including COPD on home oxygen use, ljj-vrkcn-axbi lung cancer, hypertension, hepatitis C. CT scan of the head obtained reveals a 3.2 x 2 cm right thalamic hemorrhage with intraventricular extension to the third and fourth ventricles and mild hydrocephalus. She was admitted to the Intensive Care Unit for close neurologic and hemodynamic monitoring. Overnight her exam has remained stable, although her speech is dysarthric. She is a very poor historian. 08/31/17: Pt arousable to pain. Nods head yes to all questions. 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 Pt was having vomiting last night and this morning. 09/01/17: Pt more awake this morning. She nods head to all questions but now able to give a thumbs up or down to questions. She follows simple commands well. 09/02/17: Pt more awake again this morning, now verbalizing to questions. Denies headache. States some nausea. No numbness or paresthesias in face or extremities. Follows commands well. (Jaskaran Rodriguez) Review of Systems General: Negative for: fever, chills, insomnia Respiratory: Negative for: shortness of breath, cough, sputum Cardiovascular: Negative for: chest pain Gastrointestinal: Negative for: nausea, vomitting, diarrhea, constipation ( Jaskaran Rodriguez) Exam Results Vital Signs Date Time Temp Pulse Resp B/P (MAP) Pulse Ox O2 Delivery O2 Flow Rate FiO2 09/02/17 07:00 94 Nasal Cannula 2.00 09/02/17 06:00 69 09/02/17 04:00 98.9 19 126/72 (90) Intake and Output 09/02/17 09/02/1717 08:00 16:00 00:00 Intake Total 2081 ml Output Total 500 ml Balance 1581 ml (Jaskaran Rodriguez) Physical Examination General: Pt more awake this morning and appears comfortable in bed. Resp: CTA bilaterally. 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 Strength appears 5/5 resting in bed. Neuro: Pt much more awake. Pt now verbalizing more. She follows simple commands. 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 Right pupil 4mm and reactive. (Jaskaran Rodriguez) Lab, Micro, Other Results Last Impressions Head CT 08/31/17 0600 Signed Impressions: Service Date/Time: Thursday, August 31, 2017 05:30 - CONCLUSION: No significant change Omar Arnold MD Chest X-Ray 08/30/17 0000 Signed Impressions: Service Date/Time: Wednesday, August 30, 2017 00:54 - CONCLUSION: Stable chest appearance Omar Arnold MD Laboratory Tests Test 09/02/17 04:46 Blood Urea Nitrogen 18 MG/DL Creatinine 0.48 MG/DL Random Glucose 86 MG/DL Calcium Level 8.3 MG/DL Sodium Level 139 MEQ/L Potassium Level 3.5 MEQ/L Chloride Level 102 MEQ/L Carbon Dioxide Level 29.1 MEQ/L Anion Gap 8 MEQ/L Estimat Glomerular Filtration Rate 131 ML/MIN (Jaskaran Rodriguez) Medical Decision Making Impression and Plan A: 61 y/o FM with right thalamic hemorrhage with intraventricular extension and mild hydrocephalus more likely related to hypertensive bleed. 2. COPD with the sjf-prclb-tkty lung cancer on home oxygen. 3. Hypertension. 4. Congestive heart failure. 5. Hyponatremia. P: Continue with close neuro checks in ICU. A deterioration in her level of alertness will be a sign of worsening hydrocephalus and an indication for ventriculostomy drain placement. Today her exam is improving but still requires close observation for acute neuro change. Continue with blood pressure control to prevent worsening ICH and progressive neurological decline. Continue with rehab efforts- PT, OT, Speech therapy Discussed with RN treatment plan. (Jaskaran Rodriguez) Attending Statement The exam, history, and the medical decision-making described in the above note were completed with the assistance of the mid-level provider. I reviewed and agree with the findings presented. I attest that I had a [id number]-qq-arli encounter with the patient on the same day, and personally performed and documented my assessment and findings in the medical record. Very alert and interactive today. No vomiting and tolerating diet well. Hypertension regulation and rehabilitation is the current focus. Discussed with family at bedside and nursing staff. (Laci Tejeda MD) Jaskaran Rodriguez Sep 02, 2017 08:52 Laci Tejeda MD Sep 02, 2017 12:11
[2017-09-02] MEDS: BUDESONIDE-FORMOTEROL 160/4.5 MCG INHALER INH SCH ×2 (09:00→21:00)
[2017-09-02] MEDS: hydrALAZINE HCL 20 MG/ML VIAL IV PUSH PRN (10:07)
[2017-09-02] MEDS: SODIUM CHLORIDE 23.4% INJ 188 MEQ in SODIUM CHLOR 0.9% 1000 ML INJ 1,000 ML IV SCH (11:45)
[2017-09-02] MEDS: ACETAMINOPHEN 325 MG TAB PO PRN ×2 (12:48→20:16)
[2017-09-03] VITALS (12 sets, daily range): BP systolic 113–158; BP diastolic 63–86; PULSE 71–85; RESP 16–20; TEMP 97.9–99.1; O2SAT 92–96
[2017-09-03] MEDS: NS + KCL 20 MEQ INJ 1,000 ML IV SCH ×3 (00:03→20:44)
[2017-09-03] MEDS: CHLORHEXIDINE GLUCONATE 2 % 1 PACK (2 CLOTHS) TOP SCH (04:00)
[2017-09-03] MEDS: METHADONE HCL 10 MG TAB PO SCH ×2 (05:55→13:16)
[2017-09-03] MEDS: INSULIN NovoLIN REGULAR SUPPLEMENTAL SCALE SQ SCH ×5 (06:00→20:51)
--- NOTE | 2017-09-03 07:31 | HHI.PR ---
Subjective Remarks Patient seen and examined this morning. Vitals are stable she's afebrile. She denies CP or difficulty breathing. Endorses some pain in her head. She is resting comfortably. She knows her name, the month, and the year. She is unable to tell me where she is or the name of this building (hospital). Objective Vital Signs Date Time Temp Pulse Resp B/P (MAP) Pulse Ox O2 Delivery O2 Flow Rate FiO2 09/03/17 06:00 85 09/03/17 04:00 98.8 78 16 134/69 (90) 93 09/03/17 04:00 78 09/03/17 02:00 82 09/03/17 00:00 98.8 71 18 113/63 (80) 92 09/03/17 00:00 74 09/02/17 22:00 73 09/02/17 20:23 98 Nasal Cannula 2.00 09/02/17 20:00 98.8 88 21 121/78 (92) 99 09/02/17 20:00 88 09/02/17 19:00 98 Nasal Cannula 2.00 09/02/17 18:00 76 09/02/17 16:08 97.8 76 21 111/77 (88) 96 09/02/17 16:00 77 09/02/17 14:00 76 09/02/17 12:00 98.7 78 20 125/75 (92) 97 09/02/17 12:00 79 09/02/17 10:00 72 09/02/17 09:44 98.0 70 20 135/70 (91) 97 09/02/17 08:00 70 I/O 09/02/17 09/02/17 09/02/17 09/03/17 09/03/17 09/03/17 07:00 15:00 23:00 07:00 15:00 23:00 Intake Total 2081 ml 1560 ml 420 ml Output Total 500 ml 2650 ml 2000 ml Balance 1581 ml -1090 ml -1580 ml Intake Oral 620 ml 960 ml 420 ml IV Total 1461 ml 600 ml Output Urine Total 500 ml 2650 ml 2000 ml Stool Total 0 ml # Bowel Movements 0 0 Result Diagram: 08/31/17 0354 09/02/17 0446 Imaging Last Impressions Head CT 08/31/17 0600 Signed Impressions: Service Date/Time: Thursday, August 31, 2017 05:30 - CONCLUSION: No significant change Omar Arnold MD Chest X-Ray 08/30/17 0000 Signed Impressions: Service Date/Time: Wednesday, August 30, 2017 00:54 - CONCLUSION: Stable chest appearance Omar Arnold MD Objective Remarks GENERAL: laying in bed, awakens easily, nad SKIN: Warm and dry. Port right chest. HEAD: Normocephalic. EYES: No scleral icterus. No injection or drainage. NECK: Supple, trachea midline. No JVD or lymphadenopathy. CARDIOVASCULAR: Regular rate and rhythm without murmurs, gallops, or rubs. RESPIRATORY: Breath sounds equal bilaterally. No accessory muscle use. GASTROINTESTINAL: Abdomen soft, non-tender, nondistended. MUSCULOSKELETAL: No cyanosis, or edema. No calf tenderness. Neuro: A&O x2. Tracks with right eye. A/P Problem List: (1) Lung cancer ICD Code: C34.90 - Malignant neoplasm of unspecified part of unspecified bronchus or lung Status: Chronic (2) Acute respiratory failure ICD Code: J96.00 - Acute respiratory failure, unspecified whether with hypoxia or hypercapnia Status: Acute (3) Intraparenchymal hemorrhage of brain ICD Code: I61.9 - Nontraumatic intracerebral hemorrhage, unspecified Status: Acute (4) COPD with acute exacerbation ICD Code: J44.1 - Chronic obstructive pulmonary disease with (acute) exacerbation Status: Acute (5) Chronically on benzodiazepine therapy ICD Code: Z79.899 - Other [facility] (current) drug therapy Status: Acute Assessment and Plan In Summary: 61-year-old female patient presented to the ER on 08/30 with a chief complaint of dizzy and lightheadedness. CT of the head was performed in the ER which was significant for right thalamic hematoma with intraventricular blood intermittently dilation of the left ventricles. The patient was seated evaluated by neurosurgery. Patient initially was requiring IV blood pressure control. Expressive aphasia was present. Right thalamic hematoma with intraventricular bleed: Hydrocephalus and slightly related to hypertensive bleed. Patient is currently followed by neurosurgery. Deterioration level of alertness will be assigned reports that hydrocephalus an indication for ventriculostomy drain placement. Overall she is clinically improving but still requires observation in ICU for any acute changes in neurological status. Continue PT, OT, speech. Aggressive blood pressure management. COPD with Respiratory insufficiency: Maintain sats above 92. Duonebs every 4hrs. Symbicort. Prednisone 5 mg BID. Non-small cell lung cancer, stage IIIa, status post chemotherapy by Dr. Braxton Hypertension: Maintain map greater than 65. Lopressor 25 mg twice a day, Norvasc 5 mg daily, hydralazine 10 mg IV every 6 when necessary, obeyed all when necessary (patient's blood pressure is well controlled has not required any when necessary antihypertensives_ On methadone: Home doses 30 mg twice a day it was resumed upon patient's admission GI prophylaxis with Pepcid, but DVT prophylaxis SCDs given contraindications to chemical anticoagulation due to rebleed Discharge Planning Pending improved clinical status. PT recommends rehabilitation. Mary Kate Hightower MD Sep 03, 2017 07:31
[2017-09-03] MEDS: PANTOPRAZOLE SODIUM 40 MG VIAL IV PUSH SCH (09:04)
[2017-09-03] MEDS: METOPROLOL TARTRATE 25 MG TAB PO SCH ×2 (09:04→20:43)
[2017-09-03] MEDS: predniSONE 5 MG TAB PO SCH ×2 (09:04→20:43)
[2017-09-03] MEDS: ACETAMINOPHEN 325 MG TAB PO PRN ×3 (09:05→21:12)
[2017-09-03] MEDS: amLODIPine BESYLATE 5 MG TAB PO SCH (09:05)
[2017-09-03] MEDS: ONDANSETRON ODT 4 MG TAB PO SCH ×3 (09:05→17:24)
[2017-09-03] MEDS: DOCUSATE SODIUM 50 MG/SENNA 8.6 MG TAB PO SCH ×2 (09:38→20:43)
[2017-09-03] MEDS: BUDESONIDE-FORMOTEROL 160/4.5 MCG INHALER INH SCH ×2 (09:38→20:44)
[2017-09-03] MEDS: SODIUM CHLORIDE 23.4% INJ 188 MEQ in SODIUM CHLOR 0.9% 1000 ML INJ 1,000 ML IV SCH (12:04)
[2017-09-03] MEDS ORDERED: CHLORHEXIDINE GLUCONATE 2 % 1 PACK (2 CLOTHS)(extra cloths) TOPICAL PRN (15:15)
[2017-09-03] MEDS: MUPIROCIN 2% OINT 1 APPLIC/GM SYR NASAL SCH (20:43)
[2017-09-04] VITALS (12 sets, daily range): BP systolic 110–158; BP diastolic 59–92; PULSE 68–123; RESP 17–24; TEMP 97.8–99.2; O2SAT 91–97
[2017-09-04] MEDS: NS + KCL 20 MEQ INJ 1,000 ML IV SCH ×2 (01:00→05:08)
[2017-09-04] MEDS: METHADONE HCL 10 MG TAB PO SCH ×2 (01:45→14:10)
[2017-09-04] MEDS: CHLORHEXIDINE GLUCONATE 2 % 1 PACK (2 CLOTHS)(taper/protocol) TOPICAL SCH (04:00)
[2017-09-04] MEDS: INSULIN NovoLIN REGULAR SUPPLEMENTAL SCALE SQ SCH ×4 (05:54→18:00)
--- NOTE | 2017-09-04 06:59 | HHI.PR ---
Subjective Remarks Patient seen and examined this morning. Vitals are stable she's afebrile. Eating breakfast independently. Reports she feels well. Completely A&O x3. Denies CP or SOB. Reports persistent head pain. Objective Vital Signs Date Time Temp Pulse Resp B/P (MAP) Pulse Ox O2 Delivery O2 Flow Rate FiO2 09/04/17 06:00 68 09/04/17 04:00 98.2 73 20 158/77 (104) 97 09/04/17 04:00 73 09/04/17 02:00 71 09/04/17 00:00 97.8 68 18 128/71 (90) 94 09/04/17 00:00 68 09/03/17 22:00 75 09/03/17 20:00 99.1 83 20 158/70 (99) 96 09/03/17 20:00 82 09/03/17 20:00 96 Room Air 09/03/17 18:00 74 09/03/17 16:00 74 09/03/17 16:00 97.9 74 19 149/70 (96) 94 09/03/17 14:00 80 09/03/17 12:00 98.3 81 18 140/72 (94) 92 09/03/17 12:00 81 09/03/17 10:00 76 09/03/17 08:00 80 09/03/17 08:00 98.0 80 19 152/86 (108) 94 09/03/17 07:00 94 Room Air I/O 09/03/17 09/03/17 09/03/17 09/04/17 09/04/17 09/04/17 07:00 15:00 23:00 07:00 15:00 23:00 Intake Total 420 ml 960 ml 1690 ml 1185 ml Output Total 2000 ml 2350 ml 700 ml 2550 ml Balance -1580 ml -1390 ml 990 ml -1365 ml Intake Oral 420 ml 960 ml 240 ml 120 ml IV Total 1450 ml 1065 ml Output Urine Total 2000 ml 2350 ml 700 ml 2550 ml Stool Total 0 ml # Bowel Movements 0 Result Diagram: 08/31/17 0354 09/02/17 0446 Imaging Last Impressions Head CT 08/31/17 0600 Signed Impressions: Service Date/Time: Thursday, August 31, 2017 05:30 - CONCLUSION: No significant change Omar Arnold MD Chest X-Ray 08/30/17 0000 Signed Impressions: Service Date/Time: Wednesday, August 30, 2017 00:54 - CONCLUSION: Stable chest appearance Omar Arnold MD Objective Remarks GENERAL: sitting up in bed eating breakfast SKIN: Warm and dry. Port right chest. HEAD: Normocephalic. EYES: No scleral icterus. No injection or drainage. NECK: Supple, trachea midline. No JVD or lymphadenopathy. CARDIOVASCULAR: Regular rate and rhythm without murmurs, gallops, or rubs. RESPIRATORY: Breath sounds equal bilaterally. No accessory muscle use. GASTROINTESTINAL: Abdomen soft, non-tender, nondistended. MUSCULOSKELETAL: No cyanosis, or edema. No calf tenderness. Neuro: A&O x3. Tracks with right eye. Moves upper extremities to eat, symmetrical smile. A/P Problem List: (1) Lung cancer ICD Code: C34.90 - Malignant neoplasm of unspecified part of unspecified bronchus or lung Status: Chronic (2) Acute respiratory failure ICD Code: J96.00 - Acute respiratory failure, unspecified whether with hypoxia or hypercapnia Status: Acute (3) Intraparenchymal hemorrhage of brain ICD Code: I61.9 - Nontraumatic intracerebral hemorrhage, unspecified Status: Acute (4) COPD with acute exacerbation ICD Code: J44.1 - Chronic obstructive pulmonary disease with (acute) exacerbation Status: Acute (5) Chronically on benzodiazepine therapy ICD Code: Z79.899 - Other retirement (current) drug therapy Status: Acute Assessment and Plan In Summary: 61-year-old female patient presented to the ER on 08/30 with a chief complaint of dizzy and lightheadedness. CT of the head was performed in the ER which was significant for right thalamic hematoma with intraventricular blood intermittently dilation of the left ventricles. The patient was seated evaluated by neurosurgery. Patient initially was requiring IV blood pressure control. Expressive aphasia was present. Right thalamic hematoma with intraventricular bleed: Hydrocephalus and slightly related to hypertensive bleed. Patient is currently followed by neurosurgery. Deterioration level of alertness will be assigned reports that hydrocephalus an indication for ventriculostomy drain placement. Overall she is clinically improving but still requires observation in ICU for any acute changes in neurological status. Continue PT, OT, speech. Aggressive blood pressure management. COPD with Respiratory insufficiency: Maintain sats above 92. Duonebs every 4hrs. Symbicort. Prednisone 5 mg BID. Non-small cell lung cancer, stage IIIa, status post chemotherapy by Dr. Braxton Hypertension: Maintain map greater than 65. Lopressor 25 mg twice a day, Norvasc 5 mg daily, hydralazine 10 mg IV every 6 when necessary, obeyed all when necessary (patient's blood pressure is well controlled has not required any when necessary antihypertensives_ On methadone: Home doses 30 mg twice a day it was resumed upon patient's admission GI prophylaxis with Pepcid, but DVT prophylaxis SCDs given contraindications to chemical anticoagulation due to rebleed Discharge Planning Pending improved clinical status. PT recommends rehabilitation. Mary Kate Hightower MD Sep 04, 2017 06:59
[2017-09-04] MEDS: PANTOPRAZOLE SODIUM 40 MG VIAL IV PUSH SCH (08:39)
[2017-09-04] MEDS: ONDANSETRON ODT 4 MG TAB PO SCH ×3 (08:39→18:00)
[2017-09-04] MEDS: ACETAMINOPHEN 325 MG TAB PO PRN (08:40)
[2017-09-04] MEDS: DOCUSATE SODIUM 50 MG/SENNA 8.6 MG TAB PO SCH ×2 (08:40→21:21)
[2017-09-04] MEDS: predniSONE 5 MG TAB PO SCH ×2 (08:40→21:20)
[2017-09-04] MEDS: METOPROLOL TARTRATE 25 MG TAB PO SCH ×2 (08:40→21:20)
[2017-09-04] MEDS: amLODIPine BESYLATE 5 MG TAB PO SCH (08:41)
[2017-09-04] MEDS: MUPIROCIN 2% OINT 1 APPLIC/GM SYR NASAL SCH ×2 (08:41→21:21)
[2017-09-04] MEDS: BUDESONIDE-FORMOTEROL 160/4.5 MCG INHALER INH SCH ×2 (09:00→21:21)
[2017-09-04] MEDS: ACETAMINOPHEN/HYDROcodone 325 MG/5 MG TAB PO PRN ×2 (11:39→11:45)
[2017-09-04] MEDS: SODIUM CHLORIDE 23.4% INJ 188 MEQ in SODIUM CHLOR 0.9% 1000 ML INJ 1,000 ML IV SCH (11:45)
[2017-09-04] MEDS ORDERED: ACETAMINOPHEN/HYDROcodone 325 MG/5 MG TAB PO PRN (12:45)
[2017-09-05] VITALS (12 sets, daily range): BP systolic 118–162; BP diastolic 69–93; PULSE 69–85; RESP 18–24; TEMP 98.1–99.3; O2SAT 93–96
[2017-09-05] MEDS: METHADONE HCL 10 MG TAB PO SCH ×2 (02:59→13:59)
[2017-09-05] MEDS: CHLORHEXIDINE GLUCONATE 2 % 1 PACK (2 CLOTHS)(taper/protocol) TOPICAL SCH (04:00)
[2017-09-05 05:49] LABS: AUTOMATED NEUTROPHIL # 6.8 TH/MM3 (1.8-7.7); BASOPHIL # 0.1 TH/MM3 (0-0.2); BASOPHIL % 0.6 % (0.0-2.0); EOSINOPHIL # 0.3 TH/MM3 (0-0.4); EOSINOPHIL % 3.5 % (0.0-4.0); HEMATOCRIT 42.6 % (35.0-46.0); HEMOGLOBIN 13.9 GM/DL (11.6-15.3); LYMPH % 8.1 % (9.0-44.0); LYMPHOCYTE # 0.7 TH/MM3 (1.0-4.8); MEAN CELL VOLUME 85.1 FL (80.0-100.0); MEAN CORPUSCULAR HEMOGLOBIN 27.8 PG (27.0-34.0); MEAN CORPUSCULAR HGB CONC 32.6 % (32.0-36.0); MEAN PLATELET VOLUME 7.3 FL (7.0-11.0); MONO % 10.5 % (0.0-8.0); MONOCYTE # 0.9 TH/MM3 (0-0.9); NEUT % 77.3 % (16.0-70.0); PLATELET COUNT 308 TH/MM3 (150-450); RED BLOOD COUNT 5.01 MIL/MM3 (4.00-5.30); RED CELL DISTRIBUTION WIDTH 15.4 % (11.6-17.2); WHITE BLOOD COUNT 8.8 TH/MM3 (4.0-11.0)
[2017-09-05] MEDS: INSULIN NovoLIN REGULAR SUPPLEMENTAL SCALE SQ SCH ×4 (06:00→17:58)
[2017-09-05 06:19] LABS: BICARBONATE 27.3 MEQ/L (21.0-32.0); CALCIUM 8.7 MG/DL (8.5-10.1); CREATININE 0.63 MG/DL (0.50-1.00)
[2017-09-05] MEDS: MUPIROCIN 2% OINT 1 APPLIC/GM SYR NASAL SCH ×2 (08:41→20:20)
[2017-09-05] MEDS: PANTOPRAZOLE SODIUM 40 MG VIAL IV PUSH SCH (08:43)
[2017-09-05] MEDS: ONDANSETRON ODT 4 MG TAB PO SCH ×3 (08:44→17:51)
[2017-09-05] MEDS: METOPROLOL TARTRATE 25 MG TAB PO SCH ×2 (08:44→20:21)
[2017-09-05] MEDS: DOCUSATE SODIUM 50 MG/SENNA 8.6 MG TAB PO SCH ×2 (08:44→20:21)
[2017-09-05] MEDS: predniSONE 5 MG TAB PO SCH ×2 (08:44→20:21)
[2017-09-05] MEDS: amLODIPine BESYLATE 5 MG TAB PO SCH (08:44)
[2017-09-05] MEDS: BUDESONIDE-FORMOTEROL 160/4.5 MCG INHALER INH SCH ×2 (08:45→20:43)
[2017-09-05] MEDS ORDERED: amLODIPine BESYLATE 5 MG TAB PO SCH (09:00)
--- NOTE | 2017-09-05 09:08 | HHI.PR ---
Subjective Remarks The patient was resting in bed comfortably. She did not have any acute complaints. She said she's been trying to work with physical therapy. Discussed with nursing. Objective Vitals Vital Signs Date Time Temp Pulse Resp B/P (MAP) Pulse Ox O2 Delivery O2 Flow Rate FiO2 09/05/17 06:00 70 09/05/17 04:00 98.4 78 22 152/76 (101) 95 09/05/17 04:00 76 09/05/17 02:00 72 09/05/17 00:00 98.5 71 18 162/93 (116) 93 09/05/17 00:00 69 09/04/17 22:00 86 09/04/17 20:00 99.2 78 24 154/85 (108) 95 09/04/17 20:00 81 09/04/17 19:00 95 Room Air 09/04/17 18:00 87 09/04/17 16:00 98.0 76 17 149/79 (102) 94 09/04/17 16:00 76 09/04/17 14:00 86 09/04/17 12:00 98.0 73 20 148/78 (101) 91 09/04/17 12:00 123 09/04/17 10:00 72 I/O 09/04/17 09/04/17 09/04/17 09/05/17 09/05/17 09/05/17 07:00 15:00 23:00 07:00 15:00 23:00 Intake Total 1185 ml 1047 ml 400 ml 240 ml Output Total 2550 ml 2825 ml 1700 ml Balance -1365 ml 1047 ml -2425 ml -1460 ml Intake Oral 120 ml 400 ml 240 ml IV Total 1065 ml 1047 ml Output Urine Total 2550 ml 2825 ml 1700 ml # Bowel Movements 0 0 1 Result Diagram: 09/05/17 0421 09/05/17 0425 Imaging Last Impressions Head CT 08/31/17 0600 Signed Impressions: Service Date/Time: Thursday, August 31, 2017 05:30 - CONCLUSION: No significant change Omar Arnold MD Chest X-Ray 08/30/17 0000 Signed Impressions: Service Date/Time: Wednesday, August 30, 2017 00:54 - CONCLUSION: Stable chest appearance Omar Arnold MD Objective Remarks GENERAL: Resting comfortably. SKIN: Warm and dry. Port right chest. HEAD: Normocephalic. EYES: No scleral icterus. No injection or drainage. NECK: Supple, trachea midline. No JVD or lymphadenopathy. CARDIOVASCULAR: Regular rate and rhythm without murmurs, gallops, or rubs. RESPIRATORY: Wheezing noted. GASTROINTESTINAL: Abdomen soft, non-tender, nondistended. MUSCULOSKELETAL: No cyanosis, or edema. No calf tenderness. NEURO: A&O x3. Tracks with right eye. Moves upper and lower extremities. PSYCH: Mood and affect appropriate. Medications and IVs Current Medications Medications (Trade) Dose Ordered Sig/Félix Route Start Time Stop Time Status Last Admin (NS Flush) 2 ml UNSCH PRN IV FLUSH 08/29/17 21:30 (NS Flush) 2 ml UNSCH PRN IV FLUSH 08/30/17 00:00 (Protonix Inj) 40 mg DAILY IV PUSH 08/30/17 09:00 09/05/17 08:43 (Kirsten-Colace) 1 tab BID PO 08/30/17 09:00 09/05/17 08:44 (Milk Of Magnesia Liq) 30 ml Q12H PRN PO 08/30/17 02:15 (Senokot) 17.2 mg Q12H PRN PO 08/30/17 02:15 (Dulcolax Supp) 10 mg DAILY PRN RECTAL 08/30/17 02:15 (Lactulose Liq) 30 ml DAILY PRN PO 08/30/17 02:15 (D50w (Vial) Inj) 50 ml UNSCH PRN IV PUSH 08/30/17 02:15 (Glucagon Inj) 1 mg UNSCH PRN OTHER 08/30/17 02:15 (Norvasc) 5 mg DAILY PO 08/30/17 09:00 09/05/17 08:44 (Symbicort 160-4.5 Inh) 2 puff Q12HR INH 08/30/17 09:00 09/05/17 08:45 (Lopressor) 25 mg Q12HR PO 08/30/17 09:00 09/05/17 08:44 (Deltasone) 5 mg BID PO 08/30/17 09:00 09/05/17 08:44 (Zofran Inj) 4 mg Q6H PRN IV PUSH 08/30/17 03:15 08/30/17 21:43 (Apresoline Inj) 10 mg Q2H PRN IV PUSH 08/31/17 07:00 09/02/17 10:07 (Phenergan Inj) 12.5 mg Q6H PRN IM 08/31/17 09:00 Sodium Chloride 188 meq/Sodium Chloride 1,047 ml @ 40 mls/hr Q24H IV 08/31/17 12:00 09/04/17 11:45 (Xanax) 0.5 mg Q8H PRN PO 08/31/17 09:15 09/01/17 20:44 (Compazine) 10 mg Q6H PRN PO 08/31/17 09:15 (Zofran Odt) 8 mg TID PO 08/31/17 13:00 09/05/17 08:44 (Trandate Inj) 20 mg Q2H PRN IV 08/31/17 10:00 (Dolophine) 30 mg Q12H PO 08/31/17 14:00 09/05/17 02:59 Potassium Chloride/Sodium Chloride 1,000 ml @ 50 mls/hr Q20H IV 09/01/17 09:00 09/04/17 01:00 (NovoLIN R SUPPLEMENTAL SCALE) 1 Q6H SQ 09/01/17 12:00 (Tylenol) 650 mg Q4H PRN PO 09/02/17 12:45 09/04/17 08:40 Miscellaneous Information Patient in critical care unit? Ass... Q361D .XX 09/03/17 15:15 09/03/17 15:15 (Bactroban Nasal 2% Oint) 1 applic BID NASAL 09/03/17 21:00 09/05/17 08:41 (Chlorhexidine 2% Cloth) 3 pack DAILY@04 TOPICAL 09/04/17 04:00 09/08/17 04:01 09/04/17 04:00 (Chlorhexidine 2% Cloth) 3 pack UNSCH PRN TOPICAL 09/03/17 15:15 09/08/17 15:01 ([place] 5-325 Mg) 2 tab Q4H PRN PO 09/04/17 11:30 09/04/17 11:45 ([place] 5-325 Mg) 1 tab Q4H PRN PO 09/04/17 12:45 A/P Assessment and Plan Right thalamic hematoma with intraventricular bleed 61-year-old female patient presented to the ER on 08/30 with a chief complaint of dizziness and lightheadedness. CT of the head was performed in the ER which was significant for right thalamic hematoma with intraventricular blood and early dilation of the lateral ventricles. The patient was evaluated by neurosurgery. Patient initially was requiring IV blood pressure control. Expressive aphasia was present. Hydrocephalus and slightly related to hypertensive bleed. Patient is currently followed by neurosurgery. Overall she is clinically improving but still requires observation in ICU for any acute changes in neurological status. - Continue PT, OT, speech. - Aggressive blood pressure management. COPD with respiratory insufficiency: Maintain sats above 92. Duonebs every 4hrs. Symbicort. Prednisone 5 mg BID (the pt says she has been on that dose for months). Non-small cell lung cancer, stage IIIa, status post chemotherapy by Dr. Braxton Hypertension: Lopressor 25 mg twice a day, Norvasc increased to 10 mg daily. Hydralazine 10 mg IV every 6 when necessary. On methadone: Home doses 30 mg twice a day was resumed upon patient's admission. GI prophylaxis with Pepcid, but DVT prophylaxis SCDs given contraindications to chemical anticoagulation due to rebleed Discharge Planning Pending improved clinical status. PT recommends rehabilitation. Parth Orozco DO Sep 05, 2017 09:08
--- NOTE | 2017-09-05 09:36 | HHI.NSPN ---
History Chief Complaint: ICH. Aphasic. Interval History A 61-year-old female who presented to the emergency room with overall nonspecific complaints of not feeling well as well as complaints of unsteadiness in her gait, lightheaded and dizziness and some associated lethargy. She also complained of shortness of breath. She has a complicated medical history including COPD on home oxygen use, myv-qzryi-douw lung cancer, hypertension, hepatitis C. CT scan of the head obtained reveals a 3.2 x 2 cm right thalamic hemorrhage with intraventricular extension to the third and fourth ventricles and mild hydrocephalus. She was admitted to the Intensive Care Unit for close neurologic and hemodynamic monitoring. Overnight her exam has remained stable, although her speech is dysarthric. She is a very poor historian. 08/31/17: Pt arousable to pain. Nods head yes to all questions. Follows simple commands- moves toes and grubber hands. Pt was having vomiting last night and this morning. 09/01/17: Pt more awake this morning. She nods head to all questions but now able to give a thumbs up or down to questions. She follows simple commands well. 09/02/17: Pt more awake again this morning, now verbalizing to questions. Denies headache. States some nausea. No numbness or paresthesias in face or extremities. Follows commands well. 09/05/17: Pt awake and alert. Sitting up in bed eating breakfast. Denies any difficulty with swallowing. Some nausea. No headache. No numbness or paresthesias in face or extremities. Review of Systems General: Negative for: fever, chills, insomnia Respiratory: Negative for: shortness of breath, cough, sputum Cardiovascular: Negative for: chest pain Gastrointestinal: Positive for: nausea, Negative for: vomitting, diarrhea, constipation Exam Results Vital Signs Date Time Temp Pulse Resp B/P (MAP) Pulse Ox O2 Delivery O2 Flow Rate FiO2 09/05/17 06:00 70 09/05/17 04:00 98.4 22 152/76 (101) 95 09/04/17 19:00 Room Air 09/02/17 20:23 2.00 Intake and Output 09/05/17 09/05/17 09/06/17 08:00 16:00 00:00 Intake Total 240 ml Output Total 1700 ml Balance -1460 ml Physical Examination General: Pt awake this morning sitting up in bed feeding herself breakfast. Resp: CTA bilaterally. 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 Strength appears 5/5 resting in bed. Neuro: Pt much more awake. Pt now verbalizing more. She follows simple commands. 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 Right pupil 4mm and reactive. Lab, Micro, Other Results Last Impressions Head CT 08/31/17 0600 Signed Impressions: Service Date/Time: Thursday, August 31, 2017 05:30 - CONCLUSION: No significant change Omar Arnold MD Chest X-Ray 08/30/17 0000 Signed Impressions: Service Date/Time: Wednesday, August 30, 2017 00:54 - CONCLUSION: Stable chest appearance Omar Arnold MD Laboratory Tests Test 09/05/17 04:21 09/05/17 04:25 White Blood Count 8.8 TH/MM3 Red Blood Count 5.01 MIL/MM3 Hemoglobin 13.9 GM/DL Hematocrit 42.6 % Mean Corpuscular Volume 85.1 FL Mean Corpuscular Hemoglobin 27.8 PG Mean Corpuscular Hemoglobin Concent 32.6 % Red Cell Distribution Width 15.4 % Platelet Count 308 TH/MM3 Mean Platelet Volume 7.3 FL Neutrophils (%) (Auto) 77.3 % Lymphocytes (%) (Auto) 8.1 % Monocytes (%) (Auto) 10.5 % Eosinophils (%) (Auto) 3.5 % Basophils (%) (Auto) 0.6 % Neutrophils # (Auto) 6.8 TH/MM3 Lymphocytes # (Auto) 0.7 TH/MM3 Monocytes # (Auto) 0.9 TH/MM3 Eosinophils # (Auto) 0.3 TH/MM3 Basophils # (Auto) 0.1 TH/MM3 CBC Comment DIFF FINAL Differential Comment Blood Urea Nitrogen 13 MG/DL Creatinine 0.63 MG/DL Random Glucose 103 MG/DL Calcium Level 8.7 MG/DL Sodium Level 136 MEQ/L Potassium Level 3.6 MEQ/L Chloride Level 100 MEQ/L Carbon Dioxide Level 27.3 MEQ/L Anion Gap 9 MEQ/L Estimat Glomerular Filtration Rate 96 ML/MIN Medical Decision Making Impression and Plan A: 61 y/o FM with right thalamic hemorrhage with intraventricular extension and mild hydrocephalus more likely related to hypertensive bleed. 2. COPD with the icm-zcfct-sikf lung cancer on home oxygen. 3. Hypertension. 4. Congestive heart failure. 5. Hyponatremia. P: Neurosurgically stable for 5N and subsequent rehab placement. Continue with blood pressure control to prevent worsening ICH and progressive neurological decline. Continue with rehab efforts- PT, OT, Speech therapy Discussed with RN treatment plan. Jaskaran Rodriguez Sep 05, 2017 09:35
--- NOTE | 2017-09-05 09:36 | HHI.NSPN ---
History Chief Complaint: ICH. Aphasic. Interval History A 61-year-old female who presented to the emergency room with overall nonspecific complaints of not feeling well as well as complaints of unsteadiness in her gait, lightheaded and dizziness and some associated lethargy. She also complained of shortness of breath. She has a complicated medical history including COPD on home oxygen use, mzb-layqj-remr lung cancer, hypertension, hepatitis C. CT scan of the head obtained reveals a 3.2 x 2 cm right thalamic hemorrhage with intraventricular extension to the third and fourth ventricles and mild hydrocephalus. She was admitted to the Intensive Care Unit for close neurologic and hemodynamic monitoring. Overnight her exam has remained stable, although her speech is dysarthric. She is a very poor historian. 08/31/17: Pt arousable to pain. Nods head yes to all questions. 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 Pt was having vomiting last night and this morning. 09/01/17: Pt more awake this morning. She nods head to all questions but now able to give a thumbs up or down to questions. She follows simple commands well. 09/02/17: Pt more awake again this morning, now verbalizing to questions. Denies headache. States some nausea. No numbness or paresthesias in face or extremities. Follows commands well. 09/05/17: Pt awake and alert. Sitting up in bed eating breakfast. Denies any difficulty with swallowing. Some nausea. No headache. No numbness or paresthesias in face or extremities. Review of Systems General: Negative for: fever, chills, insomnia Respiratory: Negative for: shortness of breath, cough, sputum Cardiovascular: Negative for: chest pain Gastrointestinal: Positive for: nausea, Negative for: vomitting, diarrhea, constipation Exam Results Vital Signs Date Time Temp Pulse Resp B/P (MAP) Pulse Ox O2 Delivery O2 Flow Rate FiO2 09/05/17 06:00 70 09/05/17 04:00 98.4 22 152/76 (101) 95 09/04/17 19:00 Room Air 09/02/17 20:23 2.00 Intake and Output 09/05/17 09/05/17 09/06/17 08:00 16:00 00:00 Intake Total 240 ml Output Total 1700 ml Balance -1460 ml Physical Examination General: Pt awake this morning sitting up in bed feeding herself breakfast. Resp: CTA bilaterally. 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 Strength appears 5/5 resting in bed. Neuro: Pt much more awake. Pt now verbalizing more. She follows simple commands. 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 Right pupil 4mm and reactive. Lab, Micro, Other Results Last Impressions Head CT 08/31/17 0600 Signed Impressions: Service Date/Time: Thursday, August 31, 2017 05:30 - CONCLUSION: No significant change Omar Arnold MD Chest X-Ray 08/30/17 0000 Signed Impressions: Service Date/Time: Wednesday, August 30, 2017 00:54 - CONCLUSION: Stable chest appearance Omar Arnold MD Laboratory Tests Test 09/05/17 04:21 09/05/17 04:25 White Blood Count 8.8 TH/MM3 Red Blood Count 5.01 MIL/MM3 Hemoglobin 13.9 GM/DL Hematocrit 42.6 % Mean Corpuscular Volume 85.1 FL Mean Corpuscular Hemoglobin 27.8 PG Mean Corpuscular Hemoglobin Concent 32.6 % Red Cell Distribution Width 15.4 % Platelet Count 308 TH/MM3 Mean Platelet Volume 7.3 FL Neutrophils (%) (Auto) 77.3 % Lymphocytes (%) (Auto) 8.1 % Monocytes (%) (Auto) 10.5 % Eosinophils (%) (Auto) 3.5 % Basophils (%) (Auto) 0.6 % Neutrophils # (Auto) 6.8 TH/MM3 Lymphocytes # (Auto) 0.7 TH/MM3 Monocytes # (Auto) 0.9 TH/MM3 Eosinophils # (Auto) 0.3 TH/MM3 Basophils # (Auto) 0.1 TH/MM3 CBC Comment DIFF FINAL Differential Comment Blood Urea Nitrogen 13 MG/DL Creatinine 0.63 MG/DL Random Glucose 103 MG/DL Calcium Level 8.7 MG/DL Sodium Level 136 MEQ/L Potassium Level 3.6 MEQ/L Chloride Level 100 MEQ/L Carbon Dioxide Level 27.3 MEQ/L Anion Gap 9 MEQ/L Estimat Glomerular Filtration Rate 96 ML/MIN Medical Decision Making Impression and Plan A: 61 y/o FM with right thalamic hemorrhage with intraventricular extension and mild hydrocephalus more likely related to hypertensive bleed. 2. COPD with the htf-gbyra-kbir lung cancer on home oxygen. 3. Hypertension. 4. Congestive heart failure. 5. Hyponatremia. P: Neurosurgically stable for 5N and subsequent rehab placement. Continue with blood pressure control to prevent worsening ICH and progressive neurological decline. Continue with rehab efforts- PT, OT, Speech therapy Discussed with RN treatment plan. Jaskaran Rodriguez Sep 05, 2017 09:35
--- NOTE | 2017-09-05 09:36 | HHI.NSPN ---
History Chief Complaint: ICH. Aphasic. Interval History A 61-year-old female who presented to the emergency room with overall nonspecific complaints of not feeling well as well as complaints of unsteadiness in her gait, lightheaded and dizziness and some associated lethargy. She also complained of shortness of breath. She has a complicated medical history including COPD on home oxygen use, cca-zgicc-mvpt lung cancer, hypertension, hepatitis C. CT scan of the head obtained reveals a 3.2 x 2 cm right thalamic hemorrhage with intraventricular extension to the third and fourth ventricles and mild hydrocephalus. She was admitted to the Intensive Care Unit for close neurologic and hemodynamic monitoring. Overnight her exam has remained stable, although her speech is dysarthric. She is a very poor historian. 08/31/17: Pt arousable to pain. Nods head yes to all questions. 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 Pt was having vomiting last night and this morning. 09/01/17: Pt more awake this morning. She nods head to all questions but now able to give a thumbs up or down to questions. She follows simple commands well. 09/02/17: Pt more awake again this morning, now verbalizing to questions. Denies headache. States some nausea. No numbness or paresthesias in face or extremities. Follows commands well. 09/05/17: Pt awake and alert. Sitting up in bed eating breakfast. Denies any difficulty with swallowing. Some nausea. No headache. No numbness or paresthesias in face or extremities. Review of Systems General: Negative for: fever, chills, insomnia Respiratory: Negative for: shortness of breath, cough, sputum Cardiovascular: Negative for: chest pain Gastrointestinal: Positive for: nausea, Negative for: vomitting, diarrhea, constipation Exam Results Vital Signs Date Time Temp Pulse Resp B/P (MAP) Pulse Ox O2 Delivery O2 Flow Rate FiO2 09/05/17 06:00 70 09/05/17 04:00 98.4 22 152/76 (101) 95 09/04/17 19:00 Room Air 09/02/17 20:23 2.00 Intake and Output 09/05/17 09/05/17 09/06/17 08:00 16:00 00:00 Intake Total 240 ml Output Total 1700 ml Balance -1460 ml Physical Examination General: Pt awake this morning sitting up in bed feeding herself breakfast. Resp: CTA bilaterally. Heart: NSR no murmurs Abd: Soft positive bs Skin: No cyanosis or erythema Muscle: Follows simple commands enough to move toes and rackman hands. Strength appears 5/5 resting in bed. Neuro: Pt much more awake. Pt now verbalizing more. She follows simple commands. 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 Right pupil 4mm and reactive. Lab, Micro, Other Results Last Impressions Head CT 08/31/17 0600 Signed Impressions: Service Date/Time: Thursday, August 31, 2017 05:30 - CONCLUSION: No significant change Omar Arnold MD Chest X-Ray 08/30/17 0000 Signed Impressions: Service Date/Time: Wednesday, August 30, 2017 00:54 - CONCLUSION: Stable chest appearance Omar Arnold MD Laboratory Tests Test 09/05/17 04:21 09/05/17 04:25 White Blood Count 8.8 TH/MM3 Red Blood Count 5.01 MIL/MM3 Hemoglobin 13.9 GM/DL Hematocrit 42.6 % Mean Corpuscular Volume 85.1 FL Mean Corpuscular Hemoglobin 27.8 PG Mean Corpuscular Hemoglobin Concent 32.6 % Red Cell Distribution Width 15.4 % Platelet Count 308 TH/MM3 Mean Platelet Volume 7.3 FL Neutrophils (%) (Auto) 77.3 % Lymphocytes (%) (Auto) 8.1 % Monocytes (%) (Auto) 10.5 % Eosinophils (%) (Auto) 3.5 % Basophils (%) (Auto) 0.6 % Neutrophils # (Auto) 6.8 TH/MM3 Lymphocytes # (Auto) 0.7 TH/MM3 Monocytes # (Auto) 0.9 TH/MM3 Eosinophils # (Auto) 0.3 TH/MM3 Basophils # (Auto) 0.1 TH/MM3 CBC Comment DIFF FINAL Differential Comment Blood Urea Nitrogen 13 MG/DL Creatinine 0.63 MG/DL Random Glucose 103 MG/DL Calcium Level 8.7 MG/DL Sodium Level 136 MEQ/L Potassium Level 3.6 MEQ/L Chloride Level 100 MEQ/L Carbon Dioxide Level 27.3 MEQ/L Anion Gap 9 MEQ/L Estimat Glomerular Filtration Rate 96 ML/MIN Medical Decision Making Impression and Plan A: 61 y/o FM with right thalamic hemorrhage with intraventricular extension and mild hydrocephalus more likely related to hypertensive bleed. 2. COPD with the fce-stxbh-jnii lung cancer on home oxygen. 3. Hypertension. 4. Congestive heart failure. 5. Hyponatremia. P: Neurosurgically stable for 5N and subsequent rehab placement. Continue with blood pressure control to prevent worsening ICH and progressive neurological decline. Continue with rehab efforts- PT, OT, Speech therapy Discussed with RN treatment plan. Jaskaran Rodriguez Sep 05, 2017 09:35
[2017-09-05] MEDS: SODIUM CHLORIDE 23.4% INJ 188 MEQ in SODIUM CHLOR 0.9% 1000 ML INJ 1,000 ML IV SCH (10:39)
[2017-09-05] MEDS: ACETAMINOPHEN/HYDROcodone 325 MG/5 MG TAB PO PRN (11:01)
[2017-09-05] MEDS: NS + KCL 20 MEQ INJ 1,000 ML IV SCH (14:01)
[2017-09-06] VITALS (11 sets, daily range): BP systolic 126–158; BP diastolic 58–93; PULSE 72–90; RESP 17–23; TEMP 97.7–99.2; O2SAT 93–97
[2017-09-06] MEDS: METHADONE HCL 10 MG TAB PO SCH ×2 (02:04→12:53)
[2017-09-06] MEDS: CHLORHEXIDINE GLUCONATE 2 % 1 PACK (2 CLOTHS)(taper/protocol) TOPICAL SCH (03:06)
[2017-09-06] MEDS: ALPRAZolam 0.5 MG TAB PO PRN (03:47)
[2017-09-06] MEDS: ACETAMINOPHEN 325 MG TAB PO PRN (03:47)
[2017-09-06] MEDS: INSULIN NovoLIN REGULAR SUPPLEMENTAL SCALE SQ SCH ×2 (05:45)
[2017-09-06] MEDS: ONDANSETRON ODT 4 MG TAB PO SCH ×3 (09:58→17:50)
[2017-09-06] MEDS: PANTOPRAZOLE SODIUM 40 MG VIAL IV PUSH SCH (09:59)
[2017-09-06] MEDS: predniSONE 5 MG TAB PO SCH ×2 (09:59→20:23)
[2017-09-06] MEDS: MUPIROCIN 2% OINT 1 APPLIC/GM SYR NASAL SCH ×2 (09:59→20:21)
[2017-09-06] MEDS: BUDESONIDE-FORMOTEROL 160/4.5 MCG INHALER INH SCH ×2 (09:59→20:22)
[2017-09-06] MEDS: METOPROLOL TARTRATE 25 MG TAB PO SCH ×2 (09:59→20:23)
[2017-09-06] MEDS: DOCUSATE SODIUM 50 MG/SENNA 8.6 MG TAB PO SCH ×2 (09:59→20:23)
[2017-09-06] MEDS ORDERED: METH10TA PO (11:25)
[2017-09-06] MEDS ORDERED: ALPR.5 PO (11:25)
[2017-09-06] MEDS ORDERED: HYDR-3516 PO (11:25)
[2017-09-06] MEDS ORDERED: PANT40TA3 PO (11:25)
[2017-09-06] MEDS ORDERED: AMLO10 PO (11:25)
--- NOTE | 2017-09-06 11:27 | HHI.DCPOC ---
Discharge Care Plan Diagnosis: (1) Thalamic hemorrhage (2) Intraparenchymal hemorrhage of brain (3) COPD (chronic obstructive pulmonary disease) (4) HTN (hypertension) Goals to Promote Your Health * To prevent worsening of your condition and complications * To maintain your health at the optimal level Directions to Meet Your Goals Take your medications as prescribed Follow your dietary instruction Follow activity as directed Keep your appointments as scheduled Take your immunizations and boosters as scheduled If your symptoms worsen call your PCP, if no PCP go to Urgent Care Center or Emergency Room Smoking is Dangerous to Your Health. Avoid second hand smoke Call the 24-hour hour crisis hotline for domestic abuse at Parth Orozco DO Sep 06, 2017 11:27
--- NOTE | 2017-09-06 11:27 | HHI.DCPOC ---
Discharge Care Plan Diagnosis: (1) Thalamic hemorrhage (2) Intraparenchymal hemorrhage of brain (3) COPD (chronic obstructive pulmonary disease) (4) HTN (hypertension) Goals to Promote Your Health * To prevent worsening of your condition and complications * To maintain your health at the optimal level Directions to Meet Your Goals Take your medications as prescribed Follow your dietary instruction Follow activity as directed Keep your appointments as scheduled Take your immunizations and boosters as scheduled If your symptoms worsen call your PCP, if no PCP go to Urgent Care Center or Emergency Room Smoking is Dangerous to Your Health. Avoid second hand smoke Call the 24-hour hour crisis hotline for domestic abuse at Parth Orozco DO Sep 06, 2017 11:27
--- NOTE | 2017-09-06 11:27 | HHI.DCPOC ---
Discharge Care Plan Diagnosis: (1) Thalamic hemorrhage (2) Intraparenchymal hemorrhage of brain (3) COPD (chronic obstructive pulmonary disease) (4) HTN (hypertension) Goals to Promote Your Health * To prevent worsening of your condition and complications * To maintain your health at the optimal level Directions to Meet Your Goals Take your medications as prescribed Follow your dietary instruction Follow activity as directed Keep your appointments as scheduled Take your immunizations and boosters as scheduled If your symptoms worsen call your PCP, if no PCP go to Urgent Care Center or Emergency Room Smoking is Dangerous to Your Health. Avoid second hand smoke Call the 24-hour hour crisis hotline for domestic abuse at Parth Orozco DO Sep 06, 2017 11:27
--- NOTE | 2017-09-06 11:34 | HHI.PR ---
Subjective Remarks The patient had just ambulated back from the bathroom. She said she felt strong while walking. She has been eating. She has no acute complaints. Discussed with nursing. Objective Vitals Vital Signs Date Time Temp Pulse Resp B/P (MAP) Pulse Ox O2 Delivery O2 Flow Rate FiO2 09/06/17 04:46 140/70 (93) 09/06/17 03:40 98.3 78 21 158/93 (114) 94 09/06/17 00:06 99.2 90 18 126/58 (80) 93 09/05/17 20:55 98.1 81 18 142/83 (102) 96 09/05/17 20:00 85 09/05/17 19:00 93 Room Air 09/05/17 18:00 82 09/05/17 16:00 99.1 76 23 124/79 (94) 94 09/05/17 16:00 76 09/05/17 14:00 84 09/05/17 12:34 20 09/05/17 12:00 79 09/05/17 12:00 99.3 76 20 141/82 (101) 94 I/O 09/05/17 09/05/17 09/05/17 09/06/17 09/06/17 09/06/17 07:00 15:00 23:00 07:00 15:00 23:00 Intake Total 240 ml 1000 ml 420 ml 921 ml Output Total 1700 ml 1700 ml Balance -1460 ml 1000 ml -1280 ml 921 ml Intake Oral 240 ml 420 ml IV Total 1000 ml 921 ml Output Urine Total 1700 ml 1700 ml # Voids 3 # Bowel Movements 1 Result Diagram: 09/05/17 0421 09/05/17 0425 Imaging Last Impressions Head CT 08/31/17 0600 Signed Impressions: Service Date/Time: Thursday, August 31, 2017 05:30 - CONCLUSION: No significant change Omar Arnold MD Chest X-Ray 08/30/17 0000 Signed Impressions: Service Date/Time: Wednesday, August 30, 2017 00:54 - CONCLUSION: Stable chest appearance Omar Arnold MD Objective Remarks GENERAL: Resting comfortably. SKIN: Warm and dry. Port right chest. HEAD: Normocephalic. EYES: No scleral icterus. No injection or drainage. NECK: Supple, trachea midline. No JVD or lymphadenopathy. CARDIOVASCULAR: Regular rate and rhythm without murmurs, gallops, or rubs. RESPIRATORY: CTAB. GASTROINTESTINAL: Abdomen soft, non-tender, nondistended. MUSCULOSKELETAL: No cyanosis, or edema. No calf tenderness. NEURO: A&O x3. Tracks with right eye. Moves upper and lower extremities. PSYCH: Mood and affect appropriate. Medications and IVs Current Medications Medications (Trade) Dose Ordered Sig/Félix Route Start Time Stop Time Status Last Admin (NS Flush) 2 ml UNSCH PRN IV FLUSH 08/29/17 21:30 (NS Flush) 2 ml UNSCH PRN IV FLUSH 08/30/17 00:00 (Protonix Inj) 40 mg DAILY IV PUSH 08/30/17 09:00 09/06/17 09:59 (Kirsten-Colace) 1 tab BID PO 08/30/17 09:00 09/06/17 09:59 (Milk Of Magnesia Liq) 30 ml Q12H PRN PO 08/30/17 02:15 (Senokot) 17.2 mg Q12H PRN PO 08/30/17 02:15 (Dulcolax Supp) 10 mg DAILY PRN RECTAL 08/30/17 02:15 (Lactulose Liq) 30 ml DAILY PRN PO 08/30/17 02:15 (D50w (Vial) Inj) 50 ml UNSCH PRN IV PUSH 08/30/17 02:15 (Glucagon Inj) 1 mg UNSCH PRN OTHER 08/30/17 02:15 (Symbicort 160-4.5 Inh) 2 puff Q12HR INH 08/30/17 09:00 09/06/17 09:59 (Lopressor) 25 mg Q12HR PO 08/30/17 09:00 09/06/17 09:59 (Deltasone) 5 mg BID PO 08/30/17 09:00 09/06/17 09:59 (Zofran Inj) 4 mg Q6H PRN IV PUSH 08/30/17 03:15 08/30/17 21:43 (Apresoline Inj) 10 mg Q2H PRN IV PUSH 08/31/17 07:00 09/02/17 10:07 (Phenergan Inj) 12.5 mg Q6H PRN IM 08/31/17 09:00 Sodium Chloride 188 meq/Sodium Chloride 1,047 ml @ 40 mls/hr Q24H IV 08/31/17 12:00 09/05/17 10:39 (Xanax) 0.5 mg Q8H PRN PO 08/31/17 09:15 09/06/17 03:47 (Compazine) 10 mg Q6H PRN PO 08/31/17 09:15 (Zofran Odt) 8 mg TID PO 08/31/17 13:00 09/06/17 09:58 (Trandate Inj) 20 mg Q2H PRN IV 08/31/17 10:00 (Dolophine) 30 mg Q12H PO 08/31/17 14:00 09/06/17 02:04 Potassium Chloride/Sodium Chloride 1,000 ml @ 50 mls/hr Q20H IV 09/01/17 09:00 09/05/17 14:01 (NovoLIN R SUPPLEMENTAL SCALE) 1 Q6H SQ 09/01/17 12:00 (Tylenol) 650 mg Q4H PRN PO 09/02/17 12:45 09/06/17 03:47 Miscellaneous Information Patient in critical care unit? Ass... Q361D .XX 09/03/17 15:15 09/03/17 15:15 (Bactroban Nasal 2% Oint) 1 applic BID NASAL 09/03/17 21:00 09/06/17 09:59 (Chlorhexidine 2% Cloth) 3 pack DAILY@04 TOPICAL 09/04/17 04:00 09/08/17 04:01 09/04/17 04:00 (Chlorhexidine 2% Cloth) 3 pack UNSCH PRN TOPICAL 09/03/17 15:15 09/08/17 15:01 (Blandon 5-325 Mg) 2 tab Q4H PRN PO 09/04/17 11:30 09/05/17 11:01 (Blandon 5-325 Mg) 1 tab Q4H PRN PO 09/04/17 12:45 09/05/17 20:43 (Norvasc) 10 mg DAILY PO 09/06/17 09:00 09/06/17 09:59 A/P Assessment and Plan Right thalamic hematoma with intraventricular bleed 61-year-old female patient presented to the ER on 08/30 with a chief complaint of dizziness and lightheadedness. CT of the head was performed in the ER which was significant for right thalamic hematoma with intraventricular blood and early dilation of the lateral ventricles. The patient was evaluated by neurosurgery. Patient initially was requiring IV blood pressure control. Expressive aphasia was present. Hydrocephalus and slightly related to hypertensive bleed. Patient is currently followed by neurosurgery. Overall she is clinically improving but still requires observation in ICU for any acute changes in neurological status. - Continue PT, OT, speech. Anticipate d/c to rehab. CM assisting. - Aggressive blood pressure management. Improved. COPD with respiratory insufficiency: Maintain sats above 92. Duonebs every 4hrs. Symbicort. Prednisone 5 mg BID (the pt says she has been on that dose for months). - stable. Non-small cell lung cancer, stage IIIa, status post chemotherapy by Dr. Braxton Hypertension: Lopressor 25 mg twice a day, Norvasc increased to 10 mg daily. Hydralazine 10 mg IV every 6 when necessary. - improved. On methadone: Home doses 30 mg twice a day was resumed upon patient's admission. GI prophylaxis with Pepcid, but DVT prophylaxis SCDs given contraindications to chemical anticoagulation due to rebleed Discharge Planning D/c to rehab when bed available Parth Orozco DO Sep 06, 2017 11:34
[2017-09-06] MEDS: ACETAMINOPHEN/HYDROcodone 325 MG/5 MG TAB PO PRN ×2 (12:53→18:00)
[2017-09-06] MEDS: NS + KCL 20 MEQ INJ 1,000 ML IV SCH (13:30)
[2017-09-06] MEDS: SODIUM CHLORIDE 23.4% INJ 188 MEQ in SODIUM CHLOR 0.9% 1000 ML INJ 1,000 ML IV SCH (14:00)
[2017-09-07] VITALS (8 sets, daily range): BP systolic 124–147; BP diastolic 66–84; PULSE 74–90; RESP 15–23; TEMP 97.6–98.4; O2SAT 95–97
[2017-09-07] MEDS: METHADONE HCL 10 MG TAB PO SCH ×2 (01:52→13:05)
[2017-09-07] MEDS: CHLORHEXIDINE GLUCONATE 2 % 1 PACK (2 CLOTHS)(taper/protocol) TOPICAL SCH (04:00)
[2017-09-07] MEDS: ACETAMINOPHEN/HYDROcodone 325 MG/5 MG TAB PO PRN (05:14)
[2017-09-07] MEDS: ONDANSETRON ODT 4 MG TAB PO SCH ×2 (07:46→13:05)
[2017-09-07] MEDS: METOPROLOL TARTRATE 25 MG TAB PO SCH (07:46)
[2017-09-07] MEDS: predniSONE 5 MG TAB PO SCH (07:46)
[2017-09-07] MEDS: MUPIROCIN 2% OINT 1 APPLIC/GM SYR NASAL SCH (07:46)
[2017-09-07] MEDS: PANTOPRAZOLE SODIUM 40 MG VIAL IV PUSH SCH (07:46)
[2017-09-07] MEDS: DOCUSATE SODIUM 50 MG/SENNA 8.6 MG TAB PO SCH (07:47)
[2017-09-07] MEDS: BUDESONIDE-FORMOTEROL 160/4.5 MCG INHALER INH SCH (09:00)
--- NOTE | 2017-09-07 15:29 | HHI.DS ---
Discharge Summary Admission Date Aug 30, 2017 at 01:44 Discharge Date: Sep 07, 2017 Admitting Diagnosis Intracranial Hemorrhage (1) Thalamic hemorrhage ICD Code: I61.0 - Nontraumatic intracerebral hemorrhage in hemisphere, subcortical Diagnosis: Principal (2) HTN (hypertension) ICD Code: I10 - Essential (primary) hypertension Status: Chronic Procedures None Brief History - From Admission The patient is a 61-year-old female with a past medical history of hypertension, COPD, non-small cell lung cancer Stage III-A. She presented to [facility] ED with a family member as she was not feeling well, reports being dizzy and lightheaded and unsteady gait. Also the patient has been sleeping a lot. On arrival to the ER she was hypertensive with systolic blood pressure in the 160s. No history of any cough or constitutional symptoms. The patient is status post chemotherapy a few months ago and being followed by Dr. Braxton from Oncology. She had a CT scan of the brain in the ER which showed right thalamic hematoma with intraventricular blood and early dilatation of the lateral ventricles. Dr. Tejeda from Neurosurgery was notified regarding the CT findings by the ED physician, Dr. Roy. The patient takes aspirin at home. She denies any history of liver disease. CBC/BMP: 09/05/17 0421 09/05/17 0425 Significant Findings Laboratory Tests Test 09/05/17 04:21 09/05/17 04:25 Neutrophils (%) (Auto) 77.3 % (16.0-70.0) Lymphocytes (%) (Auto) 8.1 % (9.0-44.0) Monocytes (%) (Auto) 10.5 % (0.0-8.0) Lymphocytes # (Auto) 0.7 TH/MM3 (1.0-4.8) Imaging Last Impressions Head CT 08/31/17 0600 Signed Impressions: Service Date/Time: Thursday, August 31, 2017 05:30 - CONCLUSION: No significant change Omar Arnold MD Chest X-Ray 08/30/17 0000 Signed Impressions: Service Date/Time: Wednesday, August 30, 2017 00:54 - CONCLUSION: Stable chest appearance Omar Arnold MD PE at Discharge GENERAL: Resting comfortably. SKIN: Warm and dry. Port right chest. HEAD: Normocephalic. EYES: No scleral icterus. No injection or drainage. NECK: Supple, trachea midline. No JVD or lymphadenopathy. CARDIOVASCULAR: Regular rate and rhythm without murmurs, gallops, or rubs. RESPIRATORY: CTAB. GASTROINTESTINAL: Abdomen soft, non-tender, nondistended. MUSCULOSKELETAL: No cyanosis, or edema. No calf tenderness. NEURO: A&O x3. Tracks with right eye. Moves upper and lower extremities. PSYCH: Mood and affect appropriate. Pt update on day of discharge The patient remained in the hospital while waiting for authorization. No acute events reported. Hospital Course Right thalamic hematoma with intraventricular bleed 61-year-old female patient presented to the ER on 08/30 with a chief complaint of dizziness and lightheadedness. CT of the head was performed in the ER which was significant for right thalamic hematoma with intraventricular blood and early dilation of the lateral ventricles. The patient was evaluated by neurosurgery. Patient initially was requiring IV blood pressure control. Expressive aphasia was present. She continued working with PT, OT and speech therapy. Case management assisted with rehab placement. She'll follow up with neurosurgery as an outpatient. COPD She received Duonebs and Symbicort. She was continued on her home prednisone 5 mg BID. She will continue albuterol as needed and oxygen. Hypertension She was continued on Lopressor 25 mg twice a day. Norvasc was increased to 10 mg daily. She received hydralazine when necessary. Pt Condition on Discharge: Stable Discharge Disposition: Rehab Inpatient Discharge Time: > 30 minutes Discharge Instructions DIET: Follow Instructions for: Heart Healthy Diet Speech Therapy-Diet Recommends: Chopped Meat w/Gravy Activities you can perform: Weight Bearing as Manuel Follow up Referrals: Neurosurgery - 1 Week with Laci Tejeda MD PCP Follow-up - 1 Week New Medications: Pantoprazole (Pantoprazole) 40 Mg Tab 40 MG PO DAILY for Reflux, #30 TAB 0 Refills Amlodipine (Norvasc) 10 Mg Tab 10 MG PO DAILY for Blood Pressure Management, #30 TAB Hydrocodone-Acetaminophen (Hydrocodone-Acetaminophen) 5-325 mg Tab 1 TAB PO Q4H PRN for PAIN SCALE 1 TO 10, #14 TAB Methadone (Methadone) 10 Mg Tab 30 MG PO Q12H for Pain Management, #15 TAB Continued Medications: Albuterol 18 GM Inh (Ventolin Hfa 18 GM Inh) 90 Mcg/Act Aer 1 PUFF INH Q4H PRN for SHORTNESS OF BREATH, #1 INHALER 3 Refills Alprazolam (Xanax) 0.5 Mg Tab 0.5 MG PO Q8H PRN for ANXIETY, #12 TAB 0 Refills (This prescription has been renewed) Budesonide-Formoterol Inh (Symbicort Inh) 160-4.5 Mcg/Act Aero 2 PUFF INH Q12HR for Breathing Treatment, #1 INHALER 3 Refills Metoprolol Tartrate (Metoprolol Tartrate) 25 Mg Tab 25 MG PO Q12HR, #60 TAB Ondansetron (Ondansetron) 8 Mg Tab 8 MG PO TID for Nausea/Vomiting, #30 TAB 0 Refills Oxygen tank (Oxygen tank) 1 Ea Tank 2 LITER DIANE.CANULA CONTINUOUS for HYPOXEMIA PREVENTION, #1 CYLINDER Oxygen Concentrator Portable Gaseous 2 L/min via Nasal Cannula Continuous For 99 months Prednisone (Prednisone) 5 Mg Tab 5 MG PO BID, TAB 0 Refills Prochlorperazine Maleate (Prochlorperazine Maleate) 10 Mg Tab 10 MG PO Q6H PRN for NAUSEA OR VOMITING, TAB 0 Refills Discontinued Medications: Amlodipine (Amlodipine) 5 Mg Tab 5 MG PO DAILY for Blood Pressure Management, #30 TAB [address] (Aspirin EC) 81 Mg Tabdr 81 MG PO DAILY for Blood Clot Prevention, #90 TAB 0 Refills Azithromycin (Zithromax) 250 Mg Tab 250 MG PO DAILY for Infection for 4 Days, #4 TAB 0 Refills Methadone Intensol Liq (Methadone Intensol Liq) 10 Mg/Ml Conc 170 MG PO DAILY, #30 ML 0 Refills Parth Orozco DO Sep 07, 2017 15:29
== END 2017-09-07 14:20 | DRG 64 ==
LOC: NEPE 21:16 → NEDA 08-30 01:44 → N03A 08-30 02:53
PROVIDERS: ADMIT Hospitalist; ATTEND Hospitalist
PROC: 3E0F7GC Introduction of Other Therapeutic Substance into Respiratory Tract, Via Natural or Artificial Opening (ICD-10-PCS; principal; 2017-08-30)
PROC: 0T9B70Z Drainage of Bladder with Drainage Device, Via Natural or Artificial Opening (ICD-10-PCS; 2017-08-31)
DX: I61.8 Other nontraumatic intracerebral hemorrhage (principal); J96.00 Acute respiratory failure, unspecified whether with hypoxia or hypercapnia; C34.90 Malignant neoplasm of unspecified part of unspecified bronchus or lung; G91.9 Hydrocephalus, unspecified; I50.9 Heart failure, unspecified; I11.0 Hypertensive heart disease with heart failure; J44.1 Chronic obstructive pulmonary disease with (acute) exacerbation; E87.1 Hypo-osmolality and hyponatremia; R47.01 Aphasia; I61.5 Nontraumatic intracerebral hemorrhage, intraventricular; Z99.81 Dependence on supplemental oxygen; Z79.01 Long term (current) use of anticoagulants; I48.91 Unspecified atrial fibrillation; F41.9 Anxiety disorder, unspecified; M19.90 Unspecified osteoarthritis, unspecified site; Z79.899 Other long term (current) drug therapy; Z79.82 Long term (current) use of aspirin; K21.9 Gastro-esophageal reflux disease without esophagitis; Z82.49 Family history of ischemic heart disease and other diseases of the circulatory system; Z92.21 Personal history of antineoplastic chemotherapy; H54.62 Unqualified visual loss, left eye, normal vision right eye; Z87.891 Personal history of nicotine dependence; Z85.41 Personal history of malignant neoplasm of cervix uteri; R47.1 Dysarthria and anarthria; B19.20 Unspecified viral hepatitis C without hepatic coma; R29.810 Facial weakness; R11.10 Vomiting, unspecified; R42 Dizziness and giddiness
CPT/HCPCS: 36600; 70450; 71010; 80048; 80053; 80307; 81001; 82140; 82805; 82948; 83605; 83690; 83735; 84100; 84443; 84484; 85025; 85610; 85730; 87641; 93005; 94640; 94664; 96360; 96361; 96374; C9113; J0360; J1940; J2405; J3480; J7030; J7512; P9612

== ENCOUNTER 2017-09-21 09:28 | Emergency (ER) | payer MEDICAID ==
[~2017-09-21] VITALS: Ht 162.6 cm; Wt 62.0 kg
[~2017-09-21 09:28] MED LIST changes: +ALPR.25 PO; -ALPR.5 PO; +AMLO10 PO; -AMLO5TAB2 PO; -ASPI81TA23 PO; +COMMODE 3-IN-11 MIS; -METH10CO3 PO; +METH10TA PO; +PANT40TA3 PO; -PROC10TA PO; -ZITH250T PO
[2017-09-21 09:29] VITALS: BP 135/88; PULSE 117; RESP 20; TEMP 99.6; O2SAT 96
--- NOTE | 2017-09-21 09:57 | PD ---
HPI Chief Complaint: Respiratory Symptoms Time Seen by Provider: 09:53 Travel History International Travel<30 days: No Contact w/Intl Traveler<30days: No Traveled to known affect area: No History of Present Illness HPI 61-year-old female patient with history of COPD, lung cancer currently on radiation and chemotherapy which has been halted due to recent stroke, was recently released from the rehabilitation, is currently going to the methadone clinic for methadone maintenance, here because she was sent by them because she has been having shortness of breath. Patient states that this is not unusual for her, states history of COPD and lung cancer. She also states that they were worried because apparently they had given her additional dose of methadone after had given another dose of methadone on Tuesday morning. She denies any fevers, chest pains, or other symptoms. Modifying Factors: None Associated Signs & Symptoms: Shortness of breath, possible overmedication with methadone Risk Factors: COPD, lung cancer PFSH Past Medical History Hx Anticoagulant Therapy: Yes (LOW DOSE ASPIRIN) Arthritis: Yes Asthma: No Autoimmune Disease: No Anxiety: Yes Depression: No Heart Rhythm Problems: Yes (Afib) Cancer: Yes (CERVICAL, LUNG) Cardiovascular Problems: Yes (htn) High Cholesterol: No Chemotherapy: Yes ( LUNG CA/ COPD) Congestive Heart Failure: Yes (Last hospitalization) COPD: Yes Cerebrovascular Accident: Yes Coronary Artery Disease: No Diabetes: No Diminished Hearing: No Endocrine: No Gastrointestinal Disorders: Yes (vomitting) GERD: Yes Genitourinary: Yes Headaches: Yes (worse in the last several days) Hypertension: Yes Immune Disorder: No Implanted Vascular Access Dvce: Yes Medical other: Yes (Patient is on 2L NEEDED ) Musculoskeletal: Yes Neurologic: Yes Psychiatric: No Reproductive: No Respiratory: Yes (PNEUMONIA, on home O2) Immunizations Current: Yes Migraines: No Seizures: Yes (in past prescribed medication reaction related) Sickle Cell Disease: No Tetanus Vaccination: > 5 Years Influenza Vaccination: Yes PNEUMOCCOCAL Vaccine (Year): 2 ?: Not Menopausal: Yes : 3 Para: 2 Miscarriage: 1 Dilation and Curettage (D&C): Yes Past Surgical History AICD: No Body Medical Devices: RIGHT PORT CHEST WALL Endocrine Surgery: Yes (kidney biopsy) Eye Surgery: Yes (CATARACT AND RETINAL SURGERY IN THE LEFT EYE) Gynecologic Surgery: Yes (CERVICAL CONE SURGERY FOR CANCER) Joint Replacement: No Pacemaker: No Other Surgery: Yes (RIGHT CHEST WALL PORT) Family History Family Myocardial Infarction: Yes (SISTER MASSIVE FL) Social History Alcohol Use: No Tobacco Use: No (nicotine patch) Substance Use: Yes (opiod addiction and obtained meds on street; now on methadone) Allergies-Medications (Allergen,Severity, Reaction): Coded Allergies: Sulfa (Sulfonamide Antibiotics) (Unverified Allergy, Severe, HIVES, ) ketorolac (Unverified Allergy, Mild, HIVES, 09/21/17) Uncoded Allergies: FLU VACCINCE (Allergy, Unknown, 08/13/17) Reported Meds & Prescriptions Reported Meds & Active Scripts Active Xanax (Alprazolam) 0.25 Mg Tab 0.25 Mg PO Q12HR PRN Norvasc (Amlodipine Besylate) 10 Mg Tab 10 Mg PO DAILY Pantoprazole (Pantoprazole Sodium) 40 Mg Tab 40 Mg PO DAILY Prednisone 5 Mg Tab 5 Mg PO BID Ondansetron (Ondansetron HCl) 8 Mg Tab 8 Mg PO TID PRN Metoprolol Tartrate 25 Mg Tab 25 Mg PO Q12HR Symbicort Inh (Budesonide/Formoterol Fumarate) 160-4.5 Mcg/Act Aero 2 Puff INH Q12HR Ventolin Hfa 18 GM Inh (Albuterol Sulfate) 90 Mcg/Act Aer 1 Puff INH Q8HR PRN Commode 3-in-1 (Device) 1 Mis Mis Ea .ROUTE DIRECTED Methadone (Methadone HCl) 10 Mg Tab 30 Mg PO Q12H Oxygen tank (Oxygen) 1 Ea Tank 2 Liter DIANE.CANULA CONTINUOUS Oxygen Concentrator Portable Gaseous 2 L/min via Nasal Cannula Continuous For 99 months Review of Systems Except as stated in HPI: all other systems reviewed are Neg Physical Exam Narrative GENERAL: Well-developed elderly white female patient currently in mild respiratory distress. Awake and oriented 3. SKIN: Focused skin assessment warm/dry. HEAD: Atraumatic. Normocephalic. EYES: Pupils equal and round. No scleral icterus. Left eye blind. ENT: No nasal bleeding or discharge. Mucous membranes pink and moist. NECK: Trachea midline. No JVD. CARDIOVASCULAR: Regular rate and rhythm. No murmur appreciated. RESPIRATORY: Moderate accessory muscle use. Decreased throughout. Breath sounds equal bilaterally. GASTROINTESTINAL: Abdomen soft, non-tender, nondistended. Hepatic and splenic margins not palpable. MUSCULOSKELETAL: No obvious deformities. No clubbing. No cyanosis. No edema. NEUROLOGICAL: Awake and alert. No obvious cranial nerve deficits. Motor grossly within normal limits. Normal speech. PSYCHIATRIC: Appropriate mood and affect; insight and judgment normal. Data Data Last Documented VS Vital Signs Date Time Temp Pulse Resp B/P (MAP) Pulse Ox O2 Delivery O2 Flow Rate FiO2 09/21/17 10:57 94 21 09/21/17 10:10 105 18 119/85 (96) Room Air 09/21/17 09:29 99.6 Orders Orders Complete Blood Count With Diff (09/21/17 09:53) Comprehensive Metabolic Panel (09/21/17 09:53) B-Type Natriuretic Peptide (09/21/17 09:53) Act Partial Throm Time (Ptt) (09/21/17 09:53) Prothrombin Time / Inr (Pt) (09/21/17 09:53) Magnesium (Mg) (09/21/17 09:53) Ckmb (Isoenzyme) Profile (09/21/17 09:53) Troponin I (09/21/17 09:53) Urinalysis - C+S If Indicated (09/21/17 09:53) Blood Culture (09/21/17 09:53) Iv Access Insert/Monitor (09/21/17 09:53) Electrocardiogram (09/21/17 09:53) Ecg Monitoring (09/21/17 09:53) Oximetry (09/21/17 09:53) Oxygen Administration (09/21/17 09:53) Chest, Single Ap (09/21/17 09:53) Sodium Chloride 0.9% Flush (Ns Flush) (09/21/17 10:00) Methylprednisolone So Succ Inj (Solumedr (09/21/17 10:30) Albuterol-Ipratropium Neb (Duoneb Neb) (09/21/17 10:30) CKMB (09/21/17 09:45) CKMB% (09/21/17 09:45) Labs Laboratory Tests Test 09/21/17 09:45 09/21/17 10:05 White Blood Count 8.7 TH/MM3 Red Blood Count 5.08 MIL/MM3 Hemoglobin 14.2 GM/DL Hematocrit 43.8 % Mean Corpuscular Volume 86.3 FL Mean Corpuscular Hemoglobin 27.9 PG Mean Corpuscular Hemoglobin Concent 32.4 % Red Cell Distribution Width 15.1 % Platelet Count 268 TH/MM3 Mean Platelet Volume 7.3 FL Neutrophils (%) (Auto) 82.7 % Lymphocytes (%) (Auto) 7.8 % Monocytes (%) (Auto) 8.3 % Eosinophils (%) (Auto) 0.8 % Basophils (%) (Auto) 0.4 % Neutrophils # (Auto) 7.2 TH/MM3 Lymphocytes # (Auto) 0.7 TH/MM3 Monocytes # (Auto) 0.7 TH/MM3 Eosinophils # (Auto) 0.1 TH/MM3 Basophils # (Auto) 0.0 TH/MM3 CBC Comment DIFF FINAL Differential Comment Prothrombin Time 10.5 SEC Prothromb Time International Ratio 1.0 RATIO Activated Partial Thromboplast Time 26.2 SEC Blood Urea Nitrogen 8 MG/DL Creatinine 0.82 MG/DL Random Glucose 110 MG/DL Total Protein 7.9 GM/DL Albumin 3.1 GM/DL Calcium Level 9.1 MG/DL Magnesium Level 1.5 MG/DL Alkaline Phosphatase 75 U/L Aspartate Amino Transf (AST/SGOT) 20 U/L Alanine Aminotransferase (ALT/SGPT) 18 U/L Total Bilirubin 0.4 MG/DL Sodium Level 132 MEQ/L Potassium Level 3.7 MEQ/L Chloride Level 96 MEQ/L Carbon Dioxide Level 28.8 MEQ/L Anion Gap 7 MEQ/L Estimat Glomerular Filtration Rate 71 ML/MIN Total Creatine Kinase 183 U/L Creatine Kinase MB 3.7 NG/ML Troponin I LESS THAN 0.02 NG/ML B-Type Natriuretic Peptide 67 PG/ML Urine Color YELLOW Urine Turbidity HAZY Urine pH 5.0 Urine Specific [place] 1.006 Urine Protein NEG mg/dL Urine Glucose (UA) NEG mg/dL Urine Ketones NEG mg/dL Urine Occult Blood NEG Urine Nitrite NEG Urine Bilirubin NEG Urine Urobilinogen LESS THAN 2.0 MG/DL Urine Leukocyte Esterase MOD Urine RBC 1 /hpf Urine WBC 6 /hpf Urine Squamous Epithelial Cells <1 /hpf Urine Bacteria RARE /hpf Urine Mucus FEW /lpf Microscopic Urinalysis Comment CULT NOT INDICATED MDM Medical Decision Making Medical Screen Exam Complete: Yes Emergency Medical Condition: Yes Medical Record Reviewed: Yes Interpretation(s) EKG shows sinus tachycardia rate of 100 bpm with no signs of acute ST-T changes. Laboratory Tests Test 09/21/17 09:45 09/21/17 10:05 Neutrophils (%) (Auto) 82.7 % (16.0-70.0) Lymphocytes (%) (Auto) 7.8 % (9.0-44.0) Monocytes (%) (Auto) 8.3 % (0.0-8.0) Lymphocytes # (Auto) 0.7 TH/MM3 (1.0-4.8) Random Glucose 110 MG/DL (74-106) Albumin 3.1 GM/DL (3.4-5.0) Sodium Level 132 MEQ/L (136-145) Chloride Level 96 MEQ/L (98-107) Estimat Glomerular Filtration Rate 71 ML/MIN (>89) Creatine Kinase MB 3.7 NG/ML (0.5-3.6) Troponin I LESS THAN 0.02 NG/ML Urine Turbidity HAZY (CLEAR) Urine Leukocyte Esterase MOD (NEG) Urine WBC 6 /hpf (0-5) Urine Bacteria RARE /hpf (NONE) Urine Mucus FEW /lpf (OCC) Last 24 hours Impressions Chest X-Ray 09/21/17 0937 Signed Impressions: Service Date/Time: Tuesday, September 21, 2017 10:14 - CONCLUSION: 1. Moderate right pleural effusion with associated right lower lobe atelectasis. 2. No significant interval change. Alton Vega MD Differential Diagnosis Respiratory distress, possible overmedication with methadone: Rule out pneumonia versus CHF versus worsening cancer versus COPD exacerbation versus metabolic issues Narrative Course Chest x-ray shows a right lower lobe pleural effusion which appears fairly stable from previous chest x-ray. She was given Solu-Medrol and nebulizers in the ER with improvement symptoms. She is ambulating around the ER without issues. Lab work was otherwise unremarkable and BNP was normal. At this point , patient has not had any further methadone since yesterday and she is fairly awake, I do not see any signs of other acute processes. My plan would be to release her with follow-up to primary care physician. We will give her some tonight relief for COPD exacerbation. Return for worsening in symptoms as needed per the plan was discussed with patient and she states understanding. Diagnosis Primary Impression: COPD exacerbation Med/Other Pt SpecificInfo: Prescription(s) given Scripts Prednisone (Prednisone) 50 Mg Tab 50 MG PO DAILY for 5 Days, #5 TAB 0 Refills Prov: Arron Condon MD 09/21/17 Budesonide-Formoterol Inh (Symbicort Inh) 160-4.5 Mcg/Act Aero 2 PUFF INH Q12HR for Breathing Treatment, #1 INHALER 1 Refill Prov: Arron Condon MD 09/21/17 Albuterol 18 GM Inh (Ventolin Hfa 18 GM Inh) 90 Mcg/Act Aer 1 PUFF INH Q8HR Y for SHORTNESS OF BREATH, #1 INHALER 1 Refill Prov: Arron Condon MD 09/21/17 Disposition: 01 DISCHARGE HOME Condition: Stable Arron Condon MD Sep 21, 2017 09:57
[2017-09-21] MEDS ORDERED: SODIUM CHLORIDE 0.9% FLUSH 10 ML FLUSH IVF PRN (10:00)
[2017-09-21 10:10] VITALS: BP 119/85; PULSE 105; RESP 18; O2SAT 95
[2017-09-21 10:21] LABS: HEMATOCRIT 43.8 % (35.0-46.0); HEMO FLAGS DIFF FINAL; MEAN CELL VOLUME 86.3 FL (80.0-100.0); MEAN CORPUSCULAR HEMOGLOBIN 27.9 PG (27.0-34.0); MEAN CORPUSCULAR HGB CONC 32.4 % (32.0-36.0); PLATELET COUNT 268 TH/MM3 (150-450); RED BLOOD COUNT 5.08 MIL/MM3 (4.00-5.30); RED CELL DISTRIBUTION WIDTH 15.1 % (11.6-17.2); WHITE BLOOD COUNT 8.7 TH/MM3 (4.0-11.0)
[2017-09-21 10:22] LABS: AUTOMATED NEUTROPHIL # 7.2 TH/MM3 (1.8-7.7); BASOPHIL % 0.4 % (0.0-2.0); EOSINOPHIL # 0.1 TH/MM3 (0-0.4); EOSINOPHIL % 0.8 % (0.0-4.0); LYMPH % 7.8 % (9.0-44.0); LYMPHOCYTE # 0.7 TH/MM3 (1.0-4.8); MONO % 8.3 % (0.0-8.0); NEUT % 82.7 % (16.0-70.0)
[2017-09-21 10:22] LABS: BACTERIA, URINE RARE /hpf; BLOOD, URINE NEG (NEG); COMMENT (UR) CULT NOT INDICATED; CULTURE IF INDICATED CULT NOT INDICATED; GLUCOSE,URINE NEG (NEG); KETONE, URINE NEG (NEG); MUCUS URINE FEW /lpf (OCC); NITRITE,URINE NEG (NEG); SQUAMOUS EPITHELIAL CELL URINE <1 /hpf (0-5); URINE COLOR YELLOW (YELLW/STRAW)
[2017-09-21 10:29] LABS: APTT (PATIENT) 26.2 SEC (24.3-30.1); PROTHROMBIN TIME - PATIENT 10.5 SEC (9.8-11.6)
--- NOTE | 2017-09-21 10:29 | RADRPT ---
EXAM DATE/TIME: 09/21/2017 10:14 [facility] COMPARISON: CHEST SINGLE AP, August 30, 2017, 0:54. INDICATIONS : Short of breath with chest pressure. MEDICAL HISTORY : Chronic obstructive pulmonary disease. Stroke. Carcinoma, lung. SURGICAL HISTORY : Right side infusaport ENCOUNTER: Initial ACUITY: 1 day PAIN SCORE: 0/10 LOCATION: Bilateral chest FINDINGS: Right subclavian Odbzeb-i-Waod in stable position. Redemonstration of moderate right pleural effusion with associated right lower lobe airspace disease. Left lung is clear. Cardiomediastinal contours ar e within normal limits. CONCLUSION: 1. Moderate right pleural effusion with associated right lower lobe atelectasis. 2. No significant interval change. Alton Vega MD on September 21, 2017 at 10:26 Board Certified Radiologist. This report was verified electronically.
[2017-09-21] MEDS ORDERED: RESP: ALBUTEROL 2.5 MG/IPRATROPIUM 0.5 MG NEB (SCH) INH ONE (10:30)
[2017-09-21] MEDS ORDERED: methylPREDNISolone SOD SUCC 125 MG/2 ML VIAL IV PUSH ONE (10:30)
[2017-09-21 10:34] LABS: ANION GAP 7 MEQ/L (5-15); BICARBONATE 28.8 MEQ/L (21.0-32.0); BLOOD UREA NITROGEN 8 MG/DL (7-18); CHLORIDE 96 MEQ/L (98-107); GLOMERULAR FILTRATION RATE 71 ML/MIN (>89); MAGNESIUM 1.5 MG/DL (1.5-2.5); POTASSIUM 3.7 MEQ/L (3.5-5.1); SODIUM (NA) 132 MEQ/L (136-145)
[2017-09-21 10:39] LABS: ALKALINE PHOSPHATASE 75 U/L (45-117); ALT (GPT) 18 U/L (10-53); AST (GOT) 20 U/L (15-37); CREATINE KINASE 183 U/L (26-192); TOTAL BILIRUBIN ADULT 0.4 MG/DL (0.2-1.0)
[2017-09-21 10:52] LABS: CKMB 3.7 NG/ML (0.5-3.6)
[2017-09-21 10:57] VITALS: O2SAT 94
[2017-09-21 12:00] VITALS: BP 138/56; PULSE 75; RESP 18; O2SAT 95
[2017-09-21] MEDS ORDERED: VENTAER INH (12:21)
[2017-09-21] MEDS ORDERED: SYMB160A INH (12:21)
[2017-09-21] MEDS ORDERED: PRED50 PO (12:21)
[2017-09-21 12:50] VITALS: BP 142/62
--- NOTE | 2017-09-23 08:42 | EKG ---
Date Performed: 09/21/2017 Time Performed: 10:33:32 PTAGE: 61 years EKG: SINUS TACHYCARDIA NONSPECIFIC T-WAVE ABNORMALITY ABNORMAL RHYTHM ECG PREVIOUS TRACING : 08/29/2017 21.34 DOCTOR: Killian Young Interpretating Date/Time 09/23/2017 08:41:03
== END 2017-09-21 13:12 | disposition home or self-care (01) ==
LOC: NEPC 09:28
DX: C34.90 Malignant neoplasm of unspecified part of unspecified bronchus or lung (principal); J44.1 Chronic obstructive pulmonary disease with (acute) exacerbation; I11.0 Hypertensive heart disease with heart failure; I50.9 Heart failure, unspecified; F17.290 Nicotine dependence, other tobacco product, uncomplicated
CPT/HCPCS: 71010; 80053; 81001; 82550; 82552; 83735; 83880; 84484; 85025; 85610; 85730; 87040; 93005; 94664; 96374; 99285; J2930